=== PATIENT | male | born 1970 | race Caucasian/White ===

== ENCOUNTER 2016-06-30 14:21 | Emergency (ER) | payer OTHER ==
[2016-06-30 14:58] VITALS: RESP 18
[2016-06-30] MEDS ORDERED: SODIUM CHLORIDE 0.9% 500 ML IV STA (15:12)
[2016-06-30 15:30] LABS: Basophils # (A) 0.1 k/uL (0-0.2); Basophils % (A) 2 %; CH 32.6; CHCM 34.2; Eosinophils % (A) 0 %; HCT 43.8 % (39.0-53.0); HDW 2.78; HGB 14.5 gm/dL (13.0-17.5); Luc # (Auto) 0.09; Luc % (Auto) 1; Lymphocytes # (A) 1.3 k/uL (1.0-4.8); Lymphocytes % (A) 20 %; MCH 31.8 pg (25.0-35.0); MCHC 33.1 g/dL (31.0-37.0); Mean Platelet Volume 7.3; Monocytes # (A) 0.3 k/uL (0-1.0); Monocytes % (A) 5 %; Neutrophils # (A) 4.6 k/uL (1.3-7.7); Neutrophils % (A) 72 %; RBC 4.57 m/uL (4.30-5.90); RDW 15.7 % (11.5-15.5); WBC 6.5 k/uL (3.8-10.6); WBC (Perox) 6.54
--- NOTE | 2016-06-30 15:35 | XR ---
EXAMINATION TYPE: XR ankle complete LT DATE OF EXAM: 06/30/2016 3:29 PM COMPARISON: NONE HISTORY: 46-year-old male left ankle pain after trauma TECHNIQUE: 3 views FINDINGS: Ankle mortise appears congruent with preservation of the distal tibiofibular overlap. Talar dome is i ntact. There is mild anterior soft tissue swelling and suggestion of some capsular swelling at the do rsal talonavicular joint. Subtalar joint is aligned. No delineation to the Achilles tendon. No acute fracture or dislocation. IMPRESSION: Some anterior soft tissue swelling is suggested. No acute osseous abnormality seen.
[2016-06-30 15:41] LABS: ALT 59 U/L (21-72); AST 61 U/L (17-59); Alkaline Phosphatase 94 U/L (38-126); Anion Gap 21 mmol/L; Blood Urea Nitrogen 14 mg/dL (9-20); Calcium 9.6 mg/dL (8.4-10.2); Carbon Dioxide 17 mmol/L (22-30); Chloride 106 mmol/L (98-107); Glucose 100 mg/dL (74-99); Non-African American GFR(MDRD) >60 (>60 ml/min/1.73 sqM); Potassium 4.5 mmol/L (3.5-5.1); Sodium 144 mmol/L (137-145); Total Bilirubin 0.8 mg/dL (0.2-1.3); Total Protein 7.8 g/dL (6.3-8.2)
--- NOTE | 2016-06-30 16:41 | ED ---
Syncope HPI - General Chief Complaint: Syncope Stated Complaint: syncope Time Seen by Provider: 06/30/16 14:23 Source: patient Mode of arrival: EMS Limitations: no limitations - History of Present Illness Initial Comments: This patient's 46-year-old man with history of previous syncopal episodes who presents after he had a syncopal episode and fell today. The patient states that he is back at his baseline. He is not having any headache or neurologic symptoms reviewed he does state that he may have injured his ankle. He denied fever or chills, chest pain, dyspnea. MD Complaint: loss of consciousness -: hour(s) Prodromal Symptoms: none -: second(s) Injuries Sustained Associated with Event: Other (Ankle) Current Symptoms: back to baseline - Related Data Home Medications Medication Instructions Recorded Confirmed Cholecalciferol [Vitamin D3] 2,000 unit PO DAILY 10/16/14 06/30/16 FLUoxetine HCL [PROzac] 30 mg PO DAILY 04/03/16 06/30/16 Levothyroxine Sodium [Synthroid] 50 mcg PO DAILY 04/03/16 06/30/16 Lisinopril [Zestril] 2.5 mg PO DAILY 06/30/16 06/30/16 Allergies Allergy/AdvReac Type Severity Reaction Status Date / Time amoxicillin Allergy Rash/Hives Verified 06/30/16 14:44 Sulfa (Sulfonamide Allergy Rash/Hives Verified 06/30/16 14:44 Antibiotics) Review of Systems ROS Statement: Those systems with pertinent positive or pertinent negative responses have been documented in the HPI. ROS Other: All systems not noted in ROS Statement are negative. Constitutional: Denies: fever, chills, weakness Eyes: Denies: vision change Respiratory: Denies: cough, dyspnea Cardiovascular: Reports: syncope. Denies: chest pain, palpitations, edema Gastrointestinal: Denies: abdominal pain, vomiting, diarrhea Genitourinary: Denies: dysuria, hematuria Musculoskeletal: Reports: as per HPI, arthralgia Skin: Denies: rash Neurological: Denies: headache, weakness, numbness, paresthesias, confusion Past Medical History Past Medical History: CVA/TIA Additional Past Medical History / Comment(s): STATES CVA ON X-RAY- NO DEFICETS, STATES HE FELL AT WORK 2-3 WEEKS, HIT HIS HEAD & HAD STITCHES ABOVE LEFT EY ., OCCASIONAL DIZZINESS., SEE DR DASH'S H&P. History of Any Multi-Drug Resistant Organisms: None Reported Past Surgical History: No Surgical Hx Reported, Cardiac Ablation Additional Past Surgical History / Comment(s): HEART ABLATION FOR TACCYCARDIA Additional Past Anesthesia/Blood Transfusion Reaction / Comment(s): NEVER HAS HAD GENERAL ANESTHESIA Past Psychological History: ADD/ADHD, Anxiety, Depression Smoking Status: Never smoker Past Alcohol Use History: Occasional Past Drug Use History: None Reported - Past Family History Father Additional Family Medical History / Comment(s): BREATHING PROBLEMS General Exam Limitations: no limitations General appearance: alert, in no apparent distress Head exam: Present: atraumatic, normocephalic, normal inspection Eye exam: Present: normal appearance, PERRL, EOMI. Absent: scleral icterus, conjunctival injection, nystagmus ENT exam: Present: normal oropharynx Neck exam: Present: normal inspection, full ROM. Absent: tenderness Respiratory exam: Present: normal lung sounds bilaterally. Absent: respiratory distress, wheezes, rales, rhonchi Cardiovascular Exam: Present: regular rate, normal rhythm, normal heart sounds. Absent: systolic murmur, diastolic murmur, rubs, gallop GI/Abdominal exam: Present: soft. Absent: distended, tenderness, guarding, rebound Extremities exam: Present: normal capillary refill. Absent: pedal edema, calf tenderness Back exam: Present: normal inspection. Absent: CVA tenderness (R), CVA tenderness (L) Neurological exam: Present: alert, oriented X3, CN II-XII intact. Absent: motor sensory deficit Skin exam: Present: warm, dry, intact, normal color. Absent: rash Course Vital Signs 06/30/16 06/30/16 06/30/16 14:38 15:37 16:49 Temperature 97.1 F L 98.0 F Pulse Rate 119 H 96 94 Respiratory 18 18 18 Rate Blood Pressure 148/80 149/75 145/93 O2 Sat by Pulse 98 98 96 Oximetry Medical Decision Making - Lab Data Result diagrams: 06/30/16 14:58 06/30/16 14:58 Lab Results 06/30/16 06/30/16 06/30/16 Range/Units 14:58 14:58 14:58 WBC 6.5 (3.8-10.6) k/uL RBC 4.57 (4.30-5.90) m/uL Hgb 14.5 (13.0-17.5) gm/dL Hct 43.8 (39.0-53.0) % MCV 96.0 (80.0-100.0) fL MCH 31.8 (25.0-35.0) pg MCHC 33.1 (31.0-37.0) g/dL RDW 15.7 H (11.5-15.5) % Plt Count 212 (150-450) k/uL Neutrophils % 72 % Lymphocytes % 20 % Monocytes % 5 % Eosinophils % 0 % Basophils % 2 % Neutrophils # 4.6 (1.3-7.7) k/uL Lymphocytes # 1.3 (1.0-4.8) k/uL Monocytes # 0.3 (0-1.0) k/uL Eosinophils # 0.0 (0-0.7) k/uL Basophils # 0.1 (0-0.2) k/uL Sodium 144 (137-145) mmol/L Potassium 4.5 (3.5-5.1) mmol/L Chloride 106 (98-107) mmol/L Carbon Dioxide 17 L (22-30) mmol/L Anion Gap 21 mmol/L BUN 14 (9-20) mg/dL Creatinine 1.10 (0.66-1.25) mg/dL Est GFR (MDRD) Af Amer >60 (>60 ml/min/1.73 sqM) Est GFR (MDRD) Non-Af >60 (>60 ml/min/1.73 sqM) Glucose 100 H (74-99) mg/dL Calcium 9.6 (8.4-10.2) mg/dL Total Bilirubin 0.8 (0.2-1.3) mg/dL AST 61 H (17-59) U/L ALT 59 (21-72) U/L Alkaline Phosphatase 94 (38-126) U/L Troponin I <0.012 (0.000-0.034) ng/mL Total Protein 7.8 (6.3-8.2) g/dL Albumin 5.0 (3.5-5.0) g/dL Disposition Clinical Impression: Syncope Disposition: HOME SELF-CARE Condition: Good Instructions: Syncope (ED) Referrals: None,Stated [Primary Care Provider] - 1-2 days
[2016-06-30 16:49] VITALS: BP 145/93; PULSE 94; TEMP 98
== END 2016-06-30 16:49 | disposition home or self-care (01) ==
LOC: EC 14:21
DX: R55 Syncope and collapse (principal); M25.572 Pain in left ankle and joints of left foot; F32.9 Major depressive disorder, single episode, unspecified; Z79.899 Other long term (current) drug therapy; Z88.2 Allergy status to sulfonamides; Z88.0 Allergy status to penicillin; Z86.73 Personal history of transient ischemic attack (TIA), and cerebral infarction without residual deficits
CPT/HCPCS: 36415; 80053; 84484; 85025; 93005; 99284

== ENCOUNTER → 2016-08-07 | Outpatient (CLI) | payer OTHER ==
--- NOTE | 2016-08-07 07:56 | MR ---
EXAMINATION TYPE: MR brain wo/w con DATE OF EXAM: 08/07/2016 7:42 AM COMPARISON: Previous study dated 08/17/2014. HISTORY: syncope TECHNIQUE: Multiplanar, multiecho imaging of the brain was obtained with and without intravenous adm inistration of 10 mL intravenous MultiHance. FINDINGS: Midline structures are unremarkable. The cerebellar tonsils extend 7 mm below the foramen m agnum. There is no peaking of the tectum. Echoplanar diffusion imaging is normal. There are normal vascular flow voids. The orbits are unremarkable. There is no evidence of a CP angle mass lesion. There is mucoperiosteal thickening involving the right maxillary sinus. This is chronic. There is abnormal signal in the anterior limb and genu of the internal capsule on the right. This ricardo ears unchanged from previous. A second 7.5 mm lesion is noted in the right cerebellum. This is also u nchanged from previous. No other acute focal lesion is seen. There is no mass effect or midline shift identified. I do not see evidence of intracranial blood. Following intravenous administration of gadolinium, I do not see evidence of abnormal enhancement. IMPRESSION: 1. NO ACUTE INTRACRANIAL ABNORMALITY. 2. CHIARI I MALFORMATION. 3. EVIDENCE OF A PREVIOUS INSULT IN THE ANTERIOR LIMB OF THE RIGHT INTERNAL CAPSULE WELL THE RI GHT CEREBELLUM. THIS MAY BE DUE TO AN OLD ISCHEMIC EVENT. OTHER FORMS OF DEMYELINATION ARE ALSO POSSI BLE.
== END | disposition home or self-care (01) ==
LOC: RADMRIMAIN 06:45
PROVIDERS: ATTEND Nurse Practitioner
DX: G93.5 Compression of brain (principal)
CPT/HCPCS: 70553; A9577

== ENCOUNTER 2016-09-14 08:37 | Emergency (ER) | payer OTHER ==
[2016-09-14 08:48] VITALS: RESP 20
[2016-09-14 09:01] VITALS: BP 161/85; PULSE 60; TEMP 97.9
--- NOTE | 2016-09-14 09:24 | ED ---
General Adult HPI - General Chief complaint: Extremity Injury, Lower Stated complaint: foot swollen Time Seen by Provider: 09/14/16 09:09 Source: patient, RN notes reviewed Mode of arrival: ambulatory Limitations: no limitations - History of Present Illness Initial comments: Patient for 6-year-old male who presents emergency room today with a chief complaint of increased pains and swelling to the left foot that he noticed this morning waking up. He does admit some redness over the anterior aspect. Patient states it is locally tender painful. Denies any injury or trauma. Denies any other complaints or symptoms. Patient denies any recent fever, chills , shortness of breath, chest pain, back pain, abdominal pain, nausea or vomiting , numbness or tingling, dysuria or hematuria, constipation or diarrhea, headaches or visual changes, or any other complaints. - Related Data Home Medications Medication Instructions Recorded Confirmed Cholecalciferol [Vitamin D3] 2,000 unit PO DAILY 10/16/14 06/30/16 FLUoxetine HCL [PROzac] 30 mg PO DAILY 04/03/16 06/30/16 Levothyroxine Sodium [Synthroid] 50 mcg PO DAILY 04/03/16 06/30/16 Lisinopril [Zestril] 2.5 mg PO DAILY 06/30/16 06/30/16 Previous Rx's Medication Instructions Recorded Cephalexin [Keflex] 500 mg PO Q12HR 10 Days 09/14/16 Ibuprofen [Motrin] 600 mg PO Q6HR PRN #40 day 09/14/16 Allergies Allergy/AdvReac Type Severity Reaction Status Date / Time amoxicillin Allergy Rash/Hives Verified 06/30/16 14:44 Sulfa (Sulfonamide Allergy Rash/Hives Verified 06/30/16 14:44 Antibiotics) Review of Systems ROS Statement: Those systems with pertinent positive or pertinent negative responses have been documented in the HPI. ROS Other: All systems not noted in ROS Statement are negative. Past Medical History Past Medical History: CVA/TIA Additional Past Medical History / Comment(s): STATES CVA ON X-RAY- NO DEFICETS, STATES HE FELL AT WORK 2-3 WEEKS, HIT HIS HEAD & HAD STITCHES ABOVE LEFT EY ., OCCASIONAL DIZZINESS., SEE DR DASH'S H&P. History of Any Multi-Drug Resistant Organisms: None Reported Past Surgical History: No Surgical Hx Reported, Cardiac Ablation Additional Past Surgical History / Comment(s): HEART ABLATION FOR TACCYCARDIA Additional Past Anesthesia/Blood Transfusion Reaction / Comment(s): NEVER HAS HAD GENERAL ANESTHESIA Past Psychological History: ADD/ADHD, Anxiety, Depression Smoking Status: Never smoker Past Alcohol Use History: Occasional Past Drug Use History: None Reported - Past Family History Father Additional Family Medical History / Comment(s): BREATHING PROBLEMS General Exam - General Exam Comments Initial Comments: General: The patient is awake and alert, in no distress, and does not appear acutely ill. Neck: The neck is supple, there is no tenderness or JVD. Cardiovascular: There is a regular rate and rhythm. No murmur, rub or gallop is appreciated. Respiratory: Lungs are clear to auscultation, respirations are non-labored, breath sounds are equal. No wheezes, stridor, rales, or rhonchi. Musculoskeletal: She does have some mild redness over the anterior aspect of the left foot was streaking. Shows full range motion. Sensation intact. Pulses equal bilaterally 2+. Strength is 5/5 in all areas. Neurological: A&O x 3. CN II-XII intact, There are no obvious motor or sensory deficits. Coordination appears grossly intact. Speech is normal. Skin: Patient does have signs consistent with cellulitis with redness over the anterior aspect between the second to fourth metatarsals with mild streaking skilled nursing up midfoot. Local tenderness. Area is locally warm. Psychiatric: Normal mood and affect. Limitations: no limitations Course Vital Signs 09/14/16 08:46 Temperature 97.9 F Pulse Rate 60 Respiratory 20 Rate Blood Pressure 161/85 O2 Sat by Pulse 98 Oximetry Medical Decision Making - Medical Decision Making Patient's findings are consistent with cellulitis here in the emergency room and will be started on antibiotics of Keflex. He is advised close follow-up. Advised return here to emergency room if any symptoms increase or worsen or for any other concerns. Disposition Clinical Impression: Cellulitis Disposition: HOME SELF-CARE Condition: Good Instructions: Cellulitis (ED) Additional Instructions: Please use medication as discussed. Please follow-up with family doctor in the next 2 days of symptoms have not improved. Please return to emergency room if the symptoms increase or worsen or for any other concerns. Prescriptions: Cephalexin [Keflex] 500 mg PO Q12HR 10 Days Ibuprofen [Motrin] 600 mg PO Q6HR PRN #40 day PRN Reason: Pain Time of Disposition: 09:24
== END 2016-09-14 09:33 | disposition home or self-care (01) ==
LOC: EC 08:37
DX: L03.116 Cellulitis of left lower limb (principal); F32.9 Major depressive disorder, single episode, unspecified; Z88.0 Allergy status to penicillin; Z88.2 Allergy status to sulfonamides; Z79.899 Other long term (current) drug therapy
CPT/HCPCS: 99283

== ENCOUNTER 2016-10-24 13:17 | Emergency (ER) | payer OTHER ==
[2016-10-24] MEDS ORDERED: ASPIRIN 81 MG CHEW PO STA (13:41)
[2016-10-24] MEDS ORDERED: NITROGLYCERIN OINT 1 INCH/GM PACKET TOPICAL STA (13:41)
--- NOTE | 2016-10-24 13:43 | ED ---
General Adult HPI - General Chief complaint: Chest Pain Stated complaint: chest heaviness Time Seen by Provider: 10/24/16 13:34 Source: patient, RN notes reviewed Mode of arrival: ambulatory Limitations: no limitations - History of Present Illness Initial comments: Patient is a pleasant 46-year-old male presenting to the emergency department complaining of chest heaviness. Onset of symptoms was around a week ago. Symptoms are worse today. Patient has heaviness in his chest. Discomfort was more left-sided however now is more right-sided. Patient does have some exertional dyspnea. Patient has been fatigued. No nausea or vomiting. No diaphoresis. - Related Data Home Medications Medication Instructions Recorded Confirmed Levothyroxine Sodium [Synthroid] 50 mcg PO DAILY 04/03/16 10/24/16 FLUoxetine HCL [PROzac] 10 mg PO DAILY 09/14/16 10/24/16 FLUoxetine HCL [PROzac] 20 mg PO DAILY 09/14/16 10/24/16 Metoprolol Succinate (ER) [Toprol 25 mg PO DAILY 09/14/16 10/24/16 Xl] clonazePAM [KlonoPIN] 0.5 mg PO QID PRN 09/14/16 10/24/16 Allergies Allergy/AdvReac Type Severity Reaction Status Date / Time amoxicillin Allergy Rash/Hives Verified 10/24/16 14:16 Sulfa (Sulfonamide Allergy Rash/Hives Verified 10/24/16 14:16 Antibiotics) Review of Systems ROS Statement: Those systems with pertinent positive or pertinent negative responses have been documented in the HPI. ROS Other: All systems not noted in ROS Statement are negative. Constitutional: Denies: fever Eyes: Denies: eye pain ENT: Denies: ear pain Respiratory: Reports: dyspnea. Denies: cough Cardiovascular: Reports: chest pain Endocrine: Reports: fatigue Gastrointestinal: Denies: abdominal pain Genitourinary: Denies: dysuria Musculoskeletal: Denies: back pain Skin: Denies: rash Neurological: Denies: weakness Past Medical History Past Medical History: CVA/TIA, Seizure Disorder Additional Past Medical History / Comment(s): STATES CVA ON X-RAY- NO DEFICETS, tachycardia History of Any Multi-Drug Resistant Organisms: None Reported Past Surgical History: No Surgical Hx Reported, Cardiac Ablation Additional Past Surgical History / Comment(s): HEART ABLATION FOR TACCYCARDIA Additional Past Anesthesia/Blood Transfusion Reaction / Comment(s): NEVER HAS HAD GENERAL ANESTHESIA Past Psychological History: ADD/ADHD, Anxiety, Depression Smoking Status: Never smoker Past Alcohol Use History: Occasional Past Drug Use History: None Reported - Past Family History Father Additional Family Medical History / Comment(s): BREATHING PROBLEMS General Exam Limitations: no limitations General appearance: alert, in no apparent distress Head exam: Present: atraumatic Eye exam: Present: normal appearance, PERRL ENT exam: Present: normal oropharynx Neck exam: Present: normal inspection Respiratory exam: Present: normal lung sounds bilaterally Cardiovascular Exam: Present: regular rate, normal rhythm Expanded Peripheral pulses: 2+: Radial (R), Radial (L), Dorsalis Pedis (R), Dorsalis Pedis (L) GI/Abdominal exam: Present: soft. Absent: tenderness Extremities exam: Present: normal inspection. Absent: pedal edema, calf tenderness Neurological exam: Present: alert Psychiatric exam: Present: normal affect, normal mood Skin exam: Absent: rash Course Vital Signs 10/24/16 13:21 Temperature 98.0 F Pulse Rate 59 L Respiratory 18 Rate Blood Pressure 157/72 O2 Sat by Pulse 99 Oximetry EKG Findings - EKG Comments: EKG Findings:: Normal sinus rhythm 62. MO 136. QRS 98. QT 432. QTC 4:30. Right axis. Left posterior fascicular block. Nonspecific ST-T. Medical Decision Making - Medical Decision Making Patient reevaluated and resting comfortably in bed. Patient symptom-free at this time. Patient updated on results. Patient recommended admission. Patient is explained limitations of ER testing. Patient is made aware that heart attack has not been ruled out as well as risk for heart attack in the near future as well as other causes of chest discomfort. Patient does demonstrate medical decision aching and does not want to stay in the hospital. Patient will leave AGAINST MEDICAL ADVICE. - Lab Data Result diagrams: 10/24/16 13:50 10/24/16 13:50 Lab Results 10/24/16 10/24/16 10/24/16 Range/Units 13:50 13:50 13:50 WBC 4.2 (3.8-10.6) k/uL RBC 4.83 (4.30-5.90) m/uL Hgb 16.0 (13.0-17.5) gm/dL Hct 46.7 (39.0-53.0) % MCV 96.6 (80.0-100.0) fL MCH 33.1 (25.0-35.0) pg MCHC 34.3 (31.0-37.0) g/dL RDW 15.0 (11.5-15.5) % Plt Count 183 (150-450) k/uL Neutrophils % (Manual) 37.0 % Band Neutrophils % 2.0 % Lymphocytes % (Manual) 50.0 % Monocytes % (Manual) 8.0 % Eosinophils % (Manual) 3.0 % Neutrophils # (Manual) 1.6 (1.3-7.7) k/uL Lymphocytes # (Manual) 2.1 (1.0-4.8) k/uL Monocytes # (Manual) 0.3 (0-1.0) k/uL Eosinophils # (Manual) 0.1 (0-0.7) k/uL Nucleated RBCs 0 (0-0) /100 WBC RBC Morphology Normal PT (9.0-12.0) sec INR (<1.1) APTT (22.0-30.0) sec D-Dimer (<0.60) mg/L FEU Sodium 145 (137-145) mmol/L Potassium 4.3 (3.5-5.1) mmol/L Chloride 107 (98-107) mmol/L Carbon Dioxide 24 (22-30) mmol/L Anion Gap 14 mmol/L BUN 14 (9-20) mg/dL Creatinine 0.97 (0.66-1.25) mg/dL Est GFR (MDRD) Af Amer >60 (>60 ml/min/1.73 sqM) Est GFR (MDRD) Non-Af >60 (>60 ml/min/1.73 sqM) Glucose 85 (74-99) mg/dL Calcium 9.4 (8.4-10.2) mg/dL Magnesium 1.9 (1.6-2.3) mg/dL Total Bilirubin 1.0 (0.2-1.3) mg/dL AST 95 H (17-59) U/L ALT 70 (21-72) U/L Alkaline Phosphatase 109 (38-126) U/L Total Creatine Kinase 161 (55-170) U/L CK-MB (CK-2) 2.0 (0.0-2.4) ng/mL CK-MB (CK-2) Rel Index 1.2 Troponin I <0.012 (0.000-0.034) ng/mL Total Protein 8.5 H (6.3-8.2) g/dL Albumin 4.8 (3.5-5.0) g/dL 10/24/16 Range/Units 13:50 WBC (3.8-10.6) k/uL RBC (4.30-5.90) m/uL Hgb (13.0-17.5) gm/dL Hct (39.0-53.0) % MCV (80.0-100.0) fL MCH (25.0-35.0) pg MCHC (31.0-37.0) g/dL RDW (11.5-15.5) % Plt Count (150-450) k/uL Neutrophils % (Manual) % Band Neutrophils % % Lymphocytes % (Manual) % Monocytes % (Manual) % Eosinophils % (Manual) % Neutrophils # (Manual) (1.3-7.7) k/uL Lymphocytes # (Manual) (1.0-4.8) k/uL Monocytes # (Manual) (0-1.0) k/uL Eosinophils # (Manual) (0-0.7) k/uL Nucleated RBCs (0-0) /100 WBC RBC Morphology PT 10.0 (9.0-12.0) sec INR 1.0 (<1.1) APTT 25.0 (22.0-30.0) sec D-Dimer 0.32 (<0.60) mg/L FEU Sodium (137-145) mmol/L Potassium (3.5-5.1) mmol/L Chloride (98-107) mmol/L Carbon Dioxide (22-30) mmol/L Anion Gap mmol/L BUN (9-20) mg/dL Creatinine (0.66-1.25) mg/dL Est GFR (MDRD) Af Amer (>60 ml/min/1.73 sqM) Est GFR (MDRD) Non-Af (>60 ml/min/1.73 sqM) Glucose (74-99) mg/dL Calcium (8.4-10.2) mg/dL Magnesium (1.6-2.3) mg/dL Total Bilirubin (0.2-1.3) mg/dL AST (17-59) U/L ALT (21-72) U/L Alkaline Phosphatase (38-126) U/L Total Creatine Kinase (55-170) U/L CK-MB (CK-2) (0.0-2.4) ng/mL CK-MB (CK-2) Rel Index Troponin I (0.000-0.034) ng/mL Total Protein (6.3-8.2) g/dL Albumin (3.5-5.0) g/dL - Radiology Data Radiology results: image reviewed (Chest x-ray shows no acute process) Disposition Clinical Impression: Chest pain Disposition: Left Against Medical Advice Instructions: Chest Pain (ED) Additional Instructions: Please follow-up with your doctor in the next day for recheck. Return for increased pain, weakness, difficulty breathing, worsening or change in symptoms or other concerns. Aspirin daily. You're leaving AGAINST MEDICAL ADVICE. Referrals: Aries Ma MD [Primary Care Provider] - 1-2 days
[2016-10-24 14:14] LABS: ALT 70 U/L (21-72); AST 95 U/L (17-59); Alkaline Phosphatase 109 U/L (38-126); Anion Gap 14 mmol/L; Aty Lym Flag Slight; Blood Urea Nitrogen 14 mg/dL (9-20); CH 33.5; CHCM 34.9; Calcium 9.4 mg/dL (8.4-10.2); Carbon Dioxide 24 mmol/L (22-30); Chloride 107 mmol/L (98-107); Glucose 85 mg/dL (74-99); HCT 46.7 % (39.0-53.0); HDW 2.77; MCH 33.1 pg (25.0-35.0); MCHC 34.3 g/dL (31.0-37.0); MCV 96.6 fL (80.0-100.0); Magnesium 1.9 mg/dL (1.6-2.3); Non-African American GFR(MDRD) >60 (>60 ml/min/1.73 sqM); Potassium 4.3 mmol/L (3.5-5.1); RBC 4.83 m/uL (4.30-5.90); Sodium 145 mmol/L (137-145); Total Protein 8.5 g/dL (6.3-8.2); WBC 4.2 k/uL (3.8-10.6); WBC (Perox) 3.95
--- NOTE | 2016-10-24 14:27 | XR ---
EXAMINATION TYPE: XR chest 2V DATE OF EXAM: 10/24/2016 2:19 PM COMPARISON: NONE HISTORY: Chest pain TECHNIQUE: Frontal and lateral views of the chest are obtained. FINDINGS: There is no focal air space opacity. No evidence for pnuemothorax.No pleural effusion. The cardiac silhouette size is within normal limits. The osseous structures are grossly intact. IMPRESSION: 1. No acute cardiopulmonary process.
[2016-10-24 14:31] LABS: Add Differential Manual Differential
[2016-10-24 14:33] LABS: Creatine Kinase 161 U/L (55-170); Nucleated Red Blood Cells 0 /100 WBC (0-0); RBC Morphology Normal; Total Cells Counted 100
[2016-10-24 14:46] LABS: Troponin I <0.012 ng/mL (0.000-0.034)
[2016-10-24 15:48] VITALS: BP 122/88; PULSE 75; RESP 20; TEMP 97
== END 2016-10-24 16:08 | disposition left against medical advice (07) ==
LOC: EC 13:17
DX: R07.89 Other chest pain (principal); R06.00 Dyspnea, unspecified; R53.83 Other fatigue; G40.909 Epilepsy, unspecified, not intractable, without status epilepticus; F32.9 Major depressive disorder, single episode, unspecified; F41.9 Anxiety disorder, unspecified; Z79.899 Other long term (current) drug therapy; Z88.0 Allergy status to penicillin; Z88.2 Allergy status to sulfonamides
CPT/HCPCS: 36415; 71020; 80053; 82550; 82553; 83735; 84484; 85025; 85379; 85610; 85730; 93005; 99285

== ENCOUNTER → 2017-01-10 | Outpatient (CLI) | payer OTHER ==
--- NOTE | 2017-01-10 10:12 | NM ---
EXAMINATION TYPE: NM stress cardiolite complete DATE OF EXAM: 01/10/2017 COMPARISON: NONE HISTORY: Precordial chest pain and abnormal EKG TECHNIQUE: After the intravenous administration of 10.1 mCi Tc 99m Sestamibi - Rest images obtained 45 minutes post injection. The patient exercised using a DAVID protocol and 1 minute prior to peak exercise was injected with 27.1 mCi Tc 99m Sestamibi - Stress images obtained 10 minutes post injecti on. FINDINGS: Targeted heart rate was achieved during performance of the study. Review of stress and rest SPECT yasmine ges demonstrates decreased perfusion on stress imaging involving the inferior lateral wall compatible with stress-induced ischemia. No fixed defects are identified. Gated analysis shows normal wall omer on with an estimated left ventricular ejection fraction of 59 %. IMPRESSION: Findings compatible with stress-induced ischemia involving the inferolateral wall.
--- NOTE | 2017-01-10 15:09 | EST ---
DATE OF SERVICE: 01/10/17 TYPE OF REPORT: Exercise Stress Test INDICATION: Chest pain, syncope. BASELINE HEART RATE: 61 BASELINE BLOOD PRESSURE: 140/92 MAXIMUM HEART RATE: 170 MAXIMUM BLOOD PRESSURE: 192/94 85% MPHR: 148 100% MPHR: 174 METS: 12.1 MAXIMUM STAGE REACHED: III TOTAL EXERCISE TIME: 11:46 The patient was exercised for a total period of 11 minutes. Peak heart rate of 170 was achieved, maximum blood pressure of 145/78 mm of mercury was noted. Resting EKG shows normal sinus rhythm with normal [place] interval and QRS duration and normal ST T waves. No ST segment depression suggestive of ischemia was noted. No dysrhythmias are noted. FINAL IMPRESSION: 1. This exercise test is not suggestive of ischemia. 2. The patient's exercise tolerance is excellent. 3. The results of the nuclear study will follow. ZAINAB
== END | disposition home or self-care (01) ==
LOC: RADNMMAIN 07:59
PROVIDERS: ATTEND Internal Medicine
DX: I20.9 Angina pectoris, unspecified (principal)
CPT/HCPCS: 93017; 78452; A9500

== ENCOUNTER → 2017-02-20 | Outpatient (CLI) | payer OTHER ==
[2017-02-20 09:30] LABS: CH 33.4; HCT 41.8 % (39.0-53.0); HDW 2.67; HGB 13.7 gm/dL (13.0-17.5); MCH 32.5 pg (25.0-35.0); MCHC 32.9 g/dL (31.0-37.0); MCV 98.7 fL (80.0-100.0); Mean Platelet Volume 7.2; RBC 4.23 m/uL (4.30-5.90); RDW 14.9 % (11.5-15.5); WBC 4.1 k/uL (3.8-10.6)
[2017-02-20 09:54] LABS: Anion Gap 9 mmol/L; Blood Urea Nitrogen 9 mg/dL (9-20); Carbon Dioxide 27 mmol/L (22-30); Chloride 107 mmol/L (98-107); Non-African American GFR(MDRD) >60 (>60 ml/min/1.73 sqM); Potassium 4.1 mmol/L (3.5-5.1); Sodium 143 mmol/L (137-145)
== END | disposition home or self-care (01) ==
LOC: LABPAT 08:45
PROVIDERS: ATTEND Internal Medicine Interventional Cardiology
DX: Z01.818 Encounter for other preprocedural examination (principal); R94.30 Abnormal result of cardiovascular function study, unspecified
CPT/HCPCS: 80051; 82565; 84520; 85027

== ENCOUNTER → 2017-02-26 | Day surgery (SDC) | payer OTHER ==
[2017-02-22 09:36] VITALS: BMI 21.8
[~2017-02-26] MED LIST: ALLOPURINOL 300 MG TAB PO SCH; ALPRAZolam 0.25 MG TAB PO PRN; ALPRAZolam 0.5 MG TAB PO PRN; ASPIRIN 325 MG TAB PO STA; ATORVASTATIN 80 MG TAB PO STA; FLUoxetine HCL 10 MG CAP PO SCH; FLUoxetine HCL 20 MG CAP PO SCH; IOHEXOL 350 MG/ML 125ML BOTTLE INJ ONE; LEVOTHYROXINE 50 MCG TAB PO SCH; LIDOCAINE 2% INJ 20 MG/ML SQ ONE; LISINOPRIL 2.5 MG TAB PO SCH; METOPROLOL SUCCINATE (ER) 25 MG TAB.ER.24H PO SCH; NITROGLYCERIN SL TABS 0.4 MG TAB SUBLINGUAL PRN; NON-FORMULARY DRUG (Aspirin [Adult Low Dose Aspirin Ec] 81 MG) PO SCH; NON-FORMULARY DRUG (Cholecalciferol (Vitamin D3) [Vitamin D3] 2,000 UNIT) PO SCH; RX INFO: IV CONTRAST WAS GIVEN 1 EACH MISC MISCELLANE PRN; SODIUM CHLORIDE 0.9% 1,000 ML IV SCH; SODIUM CHLORIDE 0.9% 1,000 ML in EMPTY BAG 1 BAG IV ONE; clonazePAM 0.5 MG TAB PO PRN; fentaNYL (PF) 50 MCG/ML 2 ML AMP IV ONE
[2017-02-26 06:37] VITALS: RESP 18; TEMP 97.9
--- NOTE | 2017-02-26 09:05 | CC ---
CARDIAC CATHETERIZATION REPORT Mr. South is a 46-year-old male who has been followed by Dr. Fischer, has a history of arrhythmia and prior history of ablation, history of mild cardiomyopathy, who has been complaining of chest discomfort, underwent a myocardial perfusion imaging that was consistent with inferior wall ischemia. In view of that, recommendation was made regarding cardiac catheterization. The procedure as well as risks and complications were discussed with the patient who is in full understanding and agreement. PROCEDURE: Patient was brought to energy systems laboratory director in the fasting semi-sedated state after receiving fentanyl and Benadryl and achieving moderate conscious sedative state. Using Xylocaine anesthesia in Seldinger technique, attempts to cannulate the right radial artery were unsuccessful secondary to spasm. There was inability to advance the wire at that time. Using Xylocaine anesthesia in the Seldinger technique, 6-Spanish sheath was introduced in the right femoral artery. Selective right and left coronary angiography performed using her 6-Spanish 4-bend right and left Wilber catheter. Multiple views of the coronary arteries including hemiaxial views were obtained. Following that, 6-Spanish tight pigtail catheter introduced in the left ventricle and a 30-degree GARVIN view of the left ventricle was obtained. Following that, catheter and sheaths were removed. Hemostasis was obtained with deployment of an Angio-Seal. There was no immediate complication. Patient was returned to his room in stable condition. FINDINGS: LEFT MAIN: This is a large-sized vessel bifurcating in the left circumflex and left anterior descending artery. Left main coronary artery is without any obstructive coronary artery disease. LEFT ANTERIOR DESCENDING ARTERY: This is a large-sized vessel reaching to the apex with a wraparound apex segment giving rise to a large diagonal branch in mid segment. The left circumflex as well as branches have no evidence of obstructive coronary artery disease. LEFT CIRCUMFLEX: This is a nondominant vessel giving rise to 2 obtuse marginal branches. The left and its branches have no evidence of obstructive coronary artery disease. RIGHT CORONARY ARTERY: This is a dominant vessel large in caliber bifurcating distally PDA, posterolateral segment and branches. The right coronary artery and its branches have no evidence of obstructive coronary artery disease. LEFT VENTRICULOGRAM: Left ventriculogram is performed in 30-degree GARVIN view and revealed a mild global hypokinesis. The ejection fraction is estimated at 50%. There was no significant mitral regurgitation. HEMODYNAMICS: There was no gradient across the aortic valve. The ventricular end- diastolic pressure was 14 mmHg. CONCLUSION: 1. Normal coronary arteries. 2. Normal left ventricular size with mild global hypokinesis. RECOMMENDATION: In view of finding anatomy, recommend continue medical therapy the with aggressive coronary risk modifications have been initiated. Those findings and recommendation were discussed with the patient and his family and are in full understanding and agreement. Duration of the procedure is 27 minutes. MMODL / IJN: [id number] /
--- NOTE | 2017-02-26 09:10 | LTR ---
Date: February 26, 2017 Re: Marco Antonio South Dear Dr. Ma: I had the opportunity to perform cardiac catheterization on Mr. South at [facility] on 26 of February and a full copy of the procedure note will be forwarded to you. In brief, he was found to have no evidence of obstructive coronary artery disease with minimally impaired left ventricular systolic function and based on those findings, recommend to continue medical therapy with aggressive coronary risk modification has been initiated. Thank you again for allowing me the opportunity to participate in his care. Please feel free to call me for any questions. Sincerely, MD MAMIE Esteban / SILVINAN: [id number] /
[2017-02-26 11:47] VITALS: PULSE 60
[2017-02-26 13:21] VITALS: BP 119/71
== END | disposition home or self-care (01) ==
LOC: CATHCVL 05:56
PROVIDERS: ATTEND Internal Medicine Interventional Cardiology
DX: R94.39 Abnormal result of other cardiovascular function study (principal); I42.0 Dilated cardiomyopathy; R56.9 Unspecified convulsions; Z88.1 Allergy status to other antibiotic agents; Z88.2 Allergy status to sulfonamides; Z79.899 Other long term (current) drug therapy
CPT/HCPCS: 93458; 99152; 99153; C1760; C1894 ×2; C1769; J2001; J3010; Q9967

== ENCOUNTER → 2017-12-31 | Outpatient (CLI) | payer OTHER ==
--- NOTE | 2017-12-31 13:15 | MR ---
EXAMINATION TYPE: MR brain wo con DATE OF EXAM: 12/31/2017 8:33 AM COMPARISON: NONE HISTORY: Epilepsy, unspecified, not intractable Multiplanar and multispin-echo imaging of the brain was performed . The ventricles, basal cisterns and sulci overlying the cerebral convexities are within normal limits. There is no evidence for midline shift or mass effect. Acute intracranial hemorrhage or extra-axial collection is not evident. The brain parenchyma reveals foci of increased signal within the basal ganglia bilaterally right grea ter than left largest focus of increased signal measuring 5.8 mm. The findings are nonspecific and co uld reflect demyelination, chronic small vessel ischemic change, change from chronic migraine headach es, Lyme's disease among other possibilities. No acute edema is identified. Moderate chronic sinusitis. IMPRESSION: Nonspecific white matter changes differential diagnostic possibilities discussed above.
== END | disposition home or self-care (01) ==
LOC: RADMRIMAIN 07:57
PROVIDERS: ATTEND Psychiatry & Neurology Neurology
DX: R90.82 White matter disease, unspecified (principal); G40.909 Epilepsy, unspecified, not intractable, without status epilepticus; Z88.0 Allergy status to penicillin; Z88.2 Allergy status to sulfonamides
CPT/HCPCS: 70551

== ENCOUNTER → 2018-02-21 | Outpatient (CLI) | payer OTHER ==
--- NOTE | 2018-02-21 14:24 | US ---
EXAMINATION TYPE: US liver DATE OF EXAM: 02/21/2018 COMPARISON: NONE CLINICAL HISTORY: R94.5 ABN LIVER FUNCTIONS. no symptoms EXAM MEASUREMENTS: Liver Length: 16.6 cm Gallbladder Wall: 0.2 cm CBD: 0.4 cm Right Kidney: 9.6 x 4.7 x 4.9 cm Pancreas: Body and tail obscured by bowel gas Liver: heterogeneous and difficult to penetrate . Findings can be compatible with mild to moderate fatty infiltration of the liver. Gallbladder: wnl Evidence for sonographic Chand's sign: no CBD: wnl Right Kidney: wnl IMPRESSION: 1. Hepatomegaly and mild fatty infiltration liver. 2. Limitation due to bowel gas
== END | disposition home or self-care (01) ==
LOC: RADUSWWP 07:54
PROVIDERS: ATTEND Internal Medicine
DX: K76.0 Fatty (change of) liver, not elsewhere classified (principal)
CPT/HCPCS: 76705

== ENCOUNTER 2018-03-20 14:13 | Inpatient (IN) | payer OTHER ==
[2018-03-20] MEDS ORDERED: SODIUM CHLORIDE 0.9% 1,000 ML IV STA ×2 (14:33→17:27)
[2018-03-20] MEDS ORDERED: DIPH,PERTUS(ACELL)TETVAC-LF 0.5 ML VIAL IM ONE (14:35)
--- NOTE | 2018-03-20 14:37 | ED ---
General Adult HPI - General Chief complaint: Seizure Stated complaint: seizure/head & chin lac Time Seen by Provider: 03/20/18 14:26 Source: patient, family, RN notes reviewed Mode of arrival: wheelchair Limitations: no limitations - History of Present Illness Initial comments: Patient 47-year-old male significant past medical history for seizures, presented to the emergency room today with chief complaint of a seizure that occurred earlier today. Patient does admit that he was standing in the kitchen and had a seizure. His mother is at bedside providing history. States he did fall back does have a cut to the back of his head and onto his chin. Patient states that he is not on any seizure medications. He states he does see a neurologist. They've not started on any meds. He states first seizure was several years ago. He states he went quite a while without a seizure but is had now this is the second one just the last 2 or 3 weeks. Patient denies any other complaints or symptoms at this time. Unaware of tetanus status. Patient denies any recent fever, chills, shortness of breath, chest pain, back pain, abdominal pain, nausea or vomiting, numbness or tingling, visual changes, or any other complaints. - Related Data Home Medications Medication Instructions Recorded Confirmed Metoprolol Succinate (ER) [Toprol 25 mg PO QAM 09/14/16 03/20/18 XL] clonazePAM [KlonoPIN] 0.5 mg PO QID PRN 09/14/16 03/20/18 Aspirin [Adult Low Dose Aspirin EC] 81 mg PO DAILY 02/22/17 03/20/18 Lisinopril [Zestril] 2.5 mg PO HS 02/22/17 03/20/18 Allopurinol [Zyloprim] 100 mg PO DAILY 03/20/18 03/20/18 FLUoxetine HCL [PROzac] 40 mg PO DAILY 03/20/18 03/20/18 Levothyroxine Sodium [Synthroid] 50 mcg PO DAILY 03/20/18 03/20/18 Allergies Allergy/AdvReac Type Severity Reaction Status Date / Time amoxicillin Allergy Rash/Hives Verified 03/20/18 16:20 Sulfa (Sulfonamide Allergy Rash/Hives Verified 03/20/18 16:20 Antibiotics) Review of Systems ROS Statement: Those systems with pertinent positive or pertinent negative responses have been documented in the HPI. ROS Other: All systems not noted in ROS Statement are negative. Past Medical History Past Medical History: Chest Pain / Angina, CVA/TIA, Seizure Disorder, Thyroid Disorder Additional Past Medical History / Comment(s): STATES TIA ON X-RAY- NO DEFICITS, HX OF VENTRICULAR tachycardia. STATES HAS HAD 2 SEIZURES, LAST ONE 03/2016. HX GOUT History of Any Multi-Drug Resistant Organisms: None Reported Past Surgical History: Cardiac Ablation Additional Past Surgical History / Comment(s): TILT TABLE Past Anesthesia/Blood Transfusion Reactions: No Reported Reaction Additional Past Anesthesia/Blood Transfusion Reaction / Comment(s): NEVER HAS HAD GENERAL ANESTHESIA Past Psychological History: Anxiety, Depression Smoking Status: Never smoker Past Alcohol Use History: Occasional Past Drug Use History: None Reported - Past Family History Mother Family Medical History: No Reported History Father Additional Family Medical History / Comment(s): BREATHING PROBLEMS General Exam - General Exam Comments Initial Comments: General: The patient is awake and alert, in no distress, and does not appear acutely ill. Eye: Pupils are equal, round and reactive to light. Extra-ocular movements are intact. No nystagmus. There is normal conjunctiva bilaterally. No signs of icterus. Ears, nose, mouth and throat: There are moist mucous membranes and no oral lesions. Neck: The neck is supple, there is no tenderness or JVD. Cardiovascular: There is a regular rate and rhythm. No murmur, rub or gallop is appreciated. Respiratory: Lungs are clear to auscultation, respirations are non-labored, breath sounds are equal. No wheezes, stridor, rales, or rhonchi. Musculoskeletal: Normal ROM, no tenderness. Sensation intact. Neurological: A&O x 3. CN II-XII intact, There are no obvious motor or sensory deficits. Coordination appears grossly intact. Speech is normal. Skin: Does have a laceration to the lower chin. Mild venous oozing to the chin area Psychiatric: Cooperative, appropriate mood & affect, normal judgment. Limitations: no limitations Course Vital Signs 03/20/18 03/20/18 03/20/18 14:21 16:23 18:06 Temperature 98.2 F Pulse Rate 95 113 H 98 Respiratory 18 18 18 Rate Blood Pressure 116/71 179/69 145/73 O2 Sat by Pulse 95 92 L 94 L Oximetry Procedures - Procedures Initial comment: 1.5 cm linear laceration to right side of chin. The skin was anesthetized with 1 % lidocaine. The laceration was then cleansed with and irrigated with normal saline. The wound was inspected, and there was no evidence of injury to deep structures. No foreign body was noted in the wound. A total of 5 skin sutures were placed utilizing 5-0 nylon. Medical Decision Making - Medical Decision Making 47-year-old male presents to the emergency room for a seizure that occurred earlier today. It was unwitnessed but his mother did find him down in the kitchen. Patient doesn't remember being in the kitchen prior to seizure. Patient does have a laceration to his chin. This is close to the emergency room. Patient's tetanus is up-to-date. Patient labs were reviewed. Does show mildly elevated liver enzymes. Patient states he does drink occasionally but has not drank recently. Patient urinalysis shows possible infection will be treated with antibiotic. Patient upon trying to give a urine sample was using a urinal and had a second seizure here in the emergency room. He did fall backwards the back of his head. Does have hematoma in this area. Repeat CT of the head was performed showing Patient's CT of the head shows old lacunar infarcts and right internal capsule and right parietal lobe. Did show a lateral parietal scalp soft tissue swelling. Patient currently alert and oriented at this time. Doing well as been eating and drinking here in emergency room. Patient currently not on any seizure medication for the seizures. Patient will be admitted to the hospital with consult to his neurologist. He'll be continued on Ativan when necessary and seizure precautions. - Lab Data Result diagrams: 03/20/18 14:57 03/20/18 14:57 Lab Results 03/20/18 03/20/18 03/20/18 Range/Units 14:57 14:57 Unknown WBC 6.9 (3.8-10.6) k/uL RBC 4.61 (4.30-5.90) m/uL Hgb 15.3 (13.0-17.5) gm/dL Hct 45.3 (39.0-53.0) % MCV 98.2 (80.0-100.0) fL MCH 33.1 (25.0-35.0) pg MCHC 33.7 (31.0-37.0) g/dL RDW 14.5 (11.5-15.5) % Plt Count 132 L (150-450) k/uL Neutrophils % 81 % Lymphocytes % 12 % Monocytes % 4 % Eosinophils % 2 % Basophils % 0 % Neutrophils # 5.6 (1.3-7.7) k/uL Lymphocytes # 0.8 L (1.0-4.8) k/uL Monocytes # 0.3 (0-1.0) k/uL Eosinophils # 0.1 (0-0.7) k/uL Basophils # 0.0 (0-0.2) k/uL Sodium 136 L (137-145) mmol/L Potassium 4.7 (3.5-5.1) mmol/L Chloride 99 (98-107) mmol/L Carbon Dioxide 18 L (22-30) mmol/L Anion Gap 19 mmol/L BUN 18 (9-20) mg/dL Creatinine 0.89 (0.66-1.25) mg/dL Est GFR (CKD-EPI)AfAm >90 (>60 ml/min/1.73 sqM) Est GFR (CKD-EPI)NonAf >90 (>60 ml/min/1.73 sqM) Glucose 115 H (74-99) mg/dL Calcium 9.6 (8.4-10.2) mg/dL Total Bilirubin 1.3 (0.2-1.3) mg/dL AST 268 H (17-59) U/L ALT 188 H (21-72) U/L Alkaline Phosphatase 130 H (38-126) U/L Total Protein 7.8 (6.3-8.2) g/dL Albumin 4.7 (3.5-5.0) g/dL Urine Color Yellow Urine Appearance Clear (Clear) Urine pH 6.0 (5.0-8.0) Ur Specific [place] 1.022 (1.001-1.035) Urine Protein 2+ H (Negative) Urine Glucose (UA) Negative (Negative) Urine Ketones 3+ H (Negative) Urine Blood Trace H (Negative) Urine Nitrite Negative (Negative) Urine Bilirubin Negative (Negative) Urine Urobilinogen <2.0 (<2.0) mg/dL Ur Leukocyte Esterase Negative (Negative) Urine RBC 18 H (0-5) /hpf Urine WBC 11 H (0-5) /hpf Hyaline Casts 15 H (0-2) /lpf Urine Mucus Occasional H (None) /hpf Urine Sperm Occasional H (None) /hpf Disposition Clinical Impression: Generalized seizure, Facial laceration, Scalp hematoma Disposition: ADMITTED IP TO THIS HOSP Condition: Good Is patient prescribed a controlled substance at d/c from ED?: No Referrals: Aries Ma MD [Primary Care Provider] - 1-2 days Time of Disposition: 19:27
[2018-03-20] MEDS ORDERED: LIDOCAINE 1% INJ 10MG/ML (20 ML MDV) SQ STA (14:45)
[2018-03-20] MEDS ORDERED: ONDANSETRON 4 MG/2 ML VIAL IVP STA (15:04)
[2018-03-20 15:07] LABS: Basophils % (A) 0 %; Eosinophils # (A) 0.1 k/uL (0-0.7); Eosinophils % (A) 2 %; HCT 45.3 % (39.0-53.0); HGB 15.3 gm/dL (13.0-17.5); Lymphocytes # (A) 0.8 k/uL (1.0-4.8); Lymphocytes % (A) 12 %; MCH 33.1 pg (25.0-35.0); MCHC 33.7 g/dL (31.0-37.0); MCV 98.2 fL (80.0-100.0); Mean Platelet Volume 7.3; Monocytes # (A) 0.3 k/uL (0-1.0); Monocytes % (A) 4 %; Neutrophils # (A) 5.6 k/uL (1.3-7.7); Neutrophils % (A) 81 %; Platelet Count 132 k/uL (150-450); RBC 4.61 m/uL (4.30-5.90); RDW 14.5 % (11.5-15.5); WBC 6.9 k/uL (3.8-10.6)
[2018-03-20 15:28] LABS: ALT 188 U/L (21-72); AST 268 U/L (17-59); Albumin 4.7 g/dL (3.5-5.0); Alkaline Phosphatase 130 U/L (38-126); Anion Gap 19 mmol/L; Blood Urea Nitrogen 18 mg/dL (9-20); Calcium 9.6 mg/dL (8.4-10.2); Carbon Dioxide 18 mmol/L (22-30); Chloride 99 mmol/L (98-107); Glucose 115 mg/dL (74-99); Potassium 4.7 mmol/L (3.5-5.1); Sodium 136 mmol/L (137-145); Total Bilirubin 1.3 mg/dL (0.2-1.3); Total Protein 7.8 g/dL (6.3-8.2)
--- NOTE | 2018-03-20 15:53 | CT ---
EXAMINATION TYPE: CT brain wo con DATE OF EXAM: 03/20/2018 COMPARISON: MRI brain 12/31/2017 INDICATION: Seizure. DLP: 1121 mGycm, Automated exposure control for dose reduction was used. CONTRAST: None CT of the brain is performed utilizing 3 mm thick sections through the posterior fossa and 3 mm thick sections through the remaining calvarium. Study is performed within 24 hours of arrival to the hosp ital. No abnormal hyperdensity is present to suggest an acute intracranial hemorrhage. No mass lesion is evident. Physiologic basal ganglion calcifications at the bilateral basal ganglion. There is some calcification in the anterior horn of the right lateral ventricle. There is a hypodens e area within the superior right basal ganglion and to a lesser degree within the left superior basal ganglion. This could be old lacunar infarcts. This could be white matter change. This was clearly ev ident on the right in December 2017. No acute infarcts are evident. Ventricles and sulci are appropriate for the patient age. There is opacification of the right visualized maxillary sinus. Remaining paranasal sinuses and masto id air cells are clear. IMPRESSIONS: 1. Suspected old ischemic changes or possibly lacunar infarcts within the bilateral basal ganglion. 2. No acute suspicious changes evident.
[2018-03-20] MEDS ORDERED: LORazepam 2 MG/ML INJ IV STA (16:22)
[2018-03-20 16:41] LABS: Appearance,Urine Clear (Clear); Bilirubin,Urine Negative (Negative); Blood,Urine Trace (Negative); Color,Urine Yellow; Glucose,Urine (UA) Negative (Negative); Hyaline Casts,Urine 15 /lpf (0-2); Ketones,Urine 3+ (Negative); Leukocyte Esterase,Urine Negative (Negative); Mucus,Urine Occasional /hpf; Nitrite,Urine Negative (Negative); Protein,Urine 2+ (Negative); RBC,Urine 18 /hpf (0-5); Specific Gravity,Urine 1.022 (1.001-1.035); Sperm,Urine Occasional /hpf; Urobilinogen,Urine <2.0 mg/dL (<2.0); WBC,Urine 11 /hpf (0-5)
--- NOTE | 2018-03-20 17:56 | CT ---
EXAMINATION TYPE: CT brain wo con DATE OF EXAM: 03/20/2018 COMPARISON: Today HISTORY: Fall post prior CT of today. CT DLP: 1061 mGycm. Automated Exposure Control for Dose Reduction was Utilized. TECHNIQUE: CT scan of the head is performed without contrast. FINDINGS: Ventricles of normal size. There is symmetric thalamic calcification. There is 14 mm hypode nse area in the right anterior internal capsule. There is no midline shift. There is scalp soft tissu e swelling in the left parietal region. The calvarium is intact. There is 8 mm hypodense focus in the white matter right posterior parietal lobe. IMPRESSION: Lacunar infarcts in the right internal capsule and right parietal lobe. This appears unchanged. There is new left parietal scalp soft tissue swelling compared to previous exam.
[2018-03-20] MEDS ORDERED: LORazepam 1 MG TAB PO PRN (19:31)
[2018-03-20] MEDS ORDERED: NALOXONE 0.4 MG/ML 1 ML VIAL IV PRN (19:31)
[2018-03-20] MEDS ORDERED: ACETAMINOPHEN TAB 325 MG TAB PO PRN (19:31)
[2018-03-20] MEDS ORDERED: ONDANSETRON 4 MG/2 ML VIAL IVP PRN (19:31)
[2018-03-20] MEDS ORDERED: LORazepam 2 MG/ML INJ IV PRN (19:31)
[2018-03-20] MEDS: clonazePAM 0.5 MG TAB PO PRN (22:25)
[2018-03-20] MEDS: LISINOPRIL 2.5 MG TAB PO SCH (22:25)
[2018-03-21] MEDS ORDERED: levETIRAcetam IV 500 MG in SODIUM CHLORIDE 0.9% 100 ML IVPB STA (00:42)
--- NOTE | 2018-03-21 01:16 | CT ---
EXAMINATION TYPE: CT brain wo con DATE OF EXAM: 03/21/2018 COMPARISON: 03/20/2018 HISTORY: Prior CT done 03/20/18, AMS, confusion with nausea and vomiting CT DLP: 1036.00 mGycm. Automated Exposure Control for Dose Reduction was Utilized. TECHNIQUE: CT scan of the head is performed without contrast. FINDINGS: There is a 2 x 1 cm area of hypodensity in the anterior right internal capsule. There is no mass effect nor midline shift. There is no sign of intracranial hemorrhage. There is 3 mm calcific ation in the anterior right internal capsule. There is symmetric thalamic calcification. There is no evidence of intracranial mass. The calvarium is intact. There is 8 mm hypodense focus at the chao-whi te matter junction right posterior parietal lobe. IMPRESSION: Anterior right internal capsule lacunar infarct unchanged compared to yesterday. Small lacunar infarc t right parietal lobe unchanged. Left parietal scalp soft tissue swelling unchanged.
[2018-03-21 03:43] VITALS: BMI 22.3
[2018-03-21] MEDS: LEVOTHYROXINE 50 MCG TAB PO SCH (05:27)
[2018-03-21] MEDS: levETIRAcetam 500 MG TAB PO SCH ×3 (07:35→20:32)
[2018-03-21] MEDS: clonazePAM 0.5 MG TAB PO PRN ×2 (07:39→15:29)
[2018-03-21] MEDS: FLUoxetine HCL 20 MG CAP PO SCH (08:32)
[2018-03-21] MEDS: ALLOPURINOL 100 MG TAB PO SCH (08:33)
[2018-03-21] MEDS: METOPROLOL SUCCINATE (ER) 25 MG TAB.ER.24H PO SCH (08:33)
[2018-03-21 08:36] LABS: Basophils % (A) 0 %; Eosinophils % (A) 0 %; HCT 38.1 % (39.0-53.0); HGB 12.5 gm/dL (13.0-17.5); Lymphocytes # (A) 0.8 k/uL (1.0-4.8); Lymphocytes % (A) 15 %; MCH 32.7 pg (25.0-35.0); MCHC 32.7 g/dL (31.0-37.0); MCV 100.2 fL (80.0-100.0); Macrocytosis Slight; Mean Platelet Volume 6.9; Monocytes # (A) 0.4 k/uL (0-1.0); Monocytes % (A) 7 %; Neutrophils % (A) 76 %; RBC 3.81 m/uL (4.30-5.90); RDW 14.4 % (11.5-15.5); WBC 5.3 k/uL (3.8-10.6)
[2018-03-21 08:55] LABS: ALT 118 U/L (21-72); AST 170 U/L (17-59); Albumin 3.6 g/dL (3.5-5.0); Alkaline Phosphatase 83 U/L (38-126); Anion Gap 11 mmol/L; Blood Urea Nitrogen 11 mg/dL (9-20); Carbon Dioxide 23 mmol/L (22-30); Chloride 102 mmol/L (98-107); Glucose 79 mg/dL (74-99); Sodium 136 mmol/L (137-145); Total Bilirubin 1.1 mg/dL (0.2-1.3); Total Protein 6.3 g/dL (6.3-8.2)
[2018-03-21 09:14] LABS: Platelet Count 89 k/uL (150-450)
[2018-03-21 09:15] LABS: Poikilocytosis (M) Present
--- NOTE | 2018-03-21 13:15 | P.HPIM ---
History of Present Illness H&P Date: 03/21/18 Chief Complaint: Seizures and face lacerations This is a 47-year-old male patient of Dr. Fox. Patient presented to the emergency room with complaints of witnessed seizure by his mother. Patient states he was standing in the kitchen when he had a seizure. Patient does state he has a significant history of seizures but never sought out treatment. Patient states he's had a "few" seizures but has not received medical attention. Patient was unclear as to when most recent seizure was. Patient states to commercial underwriter that most recent seizure was a couple months ago. Per medical record, Last seizure was March 2016 Patient's. Additional medical history includes chest pain, CVA, thyroid disorder, cardiac ablation, anxiety and depression. Patient had an additional witnessed seizure in the emergency room at that time patient did fall backwards and hit his head. A repeat CT of the head was performed at that time. Initial head CT showed suspected old ischemic changes or possibly lacunar infarcts within the bilateral basal ganglion. No acute suspicious changes evident. Repeat head CT post second seizure in emergency room showing new left parietal scalp soft tissue swelling compared to previous exam. Patient had an additional seizure and third CT of the head was completed and was unchanged. Dr. Duff was paged multiple times per nursing staff with no return call. Dr. Ma initiating [facility]. Neurology consult has been placed. EEG has been ordered. Ativan added for seizure activity. At this time patient is alert and oriented 3. Patient does appear to be a poor historian. Patient denies any change to diet or medication. Liver enzymes also elevated AST 260 ALT 188 alkaline phosphatase 130. Liver ultrasound has been ordered along with consult from Dr. Goldstein. Platelet also low at 89. Patient does state he drinks one beer nightly. This time patient does deny any chest pain or shortness of breath. Patient denies abdominal pain nausea, vomiting or diarrhea. Patient denies any urinary burning or frequency. Discussed with nursing staff to call Dr. Duff make sure he is aware of consult. Review of Systems Please refer to HPI otherwise unremarkable Past Medical History Past Medical History: Chest Pain / Angina, CVA/TIA, Seizure Disorder, Thyroid Disorder Additional Past Medical History / Comment(s): States TIA from xrays- no deficits , v-tach, 2 seizures in 03/2016 - then 1 at home and 2 in ER on 03/20/18, gout. History of Any Multi-Drug Resistant Organisms: None Reported Past Surgical History: Cardiac Ablation, Heart Catheterization Additional Past Surgical History / Comment(s): Tilt table test, stress test 2017 , heart cath 2017. Past Anesthesia/Blood Transfusion Reactions: No Reported Reaction Additional Past Anesthesia/Blood Transfusion Reaction / Comment(s): Never had general anesthesia/transfusions. Past Psychological History: Anxiety, Depression, Panic Disorder Smoking Status: Never smoker Past Alcohol Use History: Occasional Additional Past Alcohol Use History / Comment(s): Pt. states he works at a [employer] so he will drink 1 beer after work. States he drinks maybe 5 drinks/ week. Past Drug Use History: None Reported - Past Family History Mother Family Medical History: No Reported History Father Additional Family Medical History / Comment(s): BREATHING PROBLEMS Medications and Allergies Home Medications Medication Instructions Recorded Confirmed Type Metoprolol Succinate (ER) [Toprol 25 mg PO QAM 09/14/16 03/20/18 History XL] clonazePAM [KlonoPIN] 0.5 mg PO QID PRN 09/14/16 03/20/18 History Aspirin [Adult Low Dose Aspirin EC] 81 mg PO DAILY 02/22/17 03/20/18 History Lisinopril [Zestril] 2.5 mg PO HS 02/22/17 03/20/18 History Allopurinol [Zyloprim] 100 mg PO DAILY 03/20/18 03/20/18 History FLUoxetine HCL [PROzac] 40 mg PO DAILY 03/20/18 03/20/18 History Levothyroxine Sodium [Synthroid] 50 mcg PO DAILY 03/20/18 03/20/18 History Allergies Allergy/AdvReac Type Severity Reaction Status Date / Time amoxicillin Allergy Rash/Hives Verified 03/21/18 01:23 Sulfa (Sulfonamide Allergy Rash/Hives Verified 03/21/18 01:23 Antibiotics) Physical Exam Vitals: Vital Signs Temp Pulse Pulse Resp BP BP BP 03/21/18 07:00 99.4 F 94 16 125/75 03/20/18 23:20 97.1 F L 103 H 18 115/83 03/20/18 21:45 98.2 F 105 H 20 130/77 03/20/18 20:30 98.6 F 98 18 138/67 10/03/18 19:39 93 18 139/78 10/03/18 18:06 98 18 145/73 03/20/18 16:23 113 H 18 179/69 03/20/18 14:21 98.2 F 95 18 116/71 Pulse Ox 03/21/18 07:00 96 03/20/18 23:20 92 L 03/20/18 21:45 97 03/20/18 20:30 94 L 03/20/18 19:39 100 03/20/18 18:06 94 L 03/20/18 16:23 92 L 03/20/18 14:21 95 Intake and Output 03/20/18 03/21/18 03/21/18 22:59 06:59 14:59 Intake Total 0 275 Output Total 200 Balance 0 -200 275 Intake: Oral 0 275 Output: Urine 200 Other: Voiding Method Urinal Urinal Weight 58.967 kg 58.967 kg Head normocephalic Neck supple Lungs clear to auscultation bilaterally no wheezing or crackles Heart regular rate and rhythm S1-S2, no rub or gallop Abdomen is soft nontender nondistended positive bowel sounds no hepatosplenomegaly Extremities no edema Neuro alert and orientated to 3 Patient does have a laceration to upper lip Results CBC & Chem 7: 03/21/18 07:49 03/21/18 07:49 Labs: Abnormal Lab Results - Last 24 Hours (Table) 03/20/18 03/20/18 03/20/18 Range/Units 14:57 14:57 Unknown RBC (4.30-5.90) m/uL Hgb (13.0-17.5) gm/dL Hct (39.0-53.0) % MCV (80.0-100.0) fL Plt Count 132 L (150-450) k/uL Lymphocytes # 0.8 L (1.0-4.8) k/uL Sodium 136 L (137-145) mmol/L Carbon Dioxide 18 L (22-30) mmol/L Glucose 115 H (74-99) mg/dL Calcium (8.4-10.2) mg/dL AST 268 H (17-59) U/L ALT 188 H (21-72) U/L Alkaline Phosphatase 130 H (38-126) U/L Urine Protein 2+ H (Negative) Urine Ketones 3+ H (Negative) Urine Blood Trace H (Negative) Urine RBC 18 H (0-5) /hpf Urine WBC 11 H (0-5) /hpf Hyaline Casts 15 H (0-2) /lpf Urine Mucus Occasional H (None) /hpf Urine Sperm Occasional H (None) /hpf 03/21/18 03/21/18 Range/Units 07:49 07:49 RBC 3.81 L (4.30-5.90) m/uL Hgb 12.5 L (13.0-17.5) gm/dL Hct 38.1 L (39.0-53.0) % MCV 100.2 H (80.0-100.0) fL Plt Count 89 L (150-450) k/uL Lymphocytes # 0.8 L (1.0-4.8) k/uL Sodium 136 L (137-145) mmol/L Carbon Dioxide (22-30) mmol/L Glucose (74-99) mg/dL Calcium 8.0 L (8.4-10.2) mg/dL AST 170 H (17-59) U/L ALT 118 H (21-72) U/L Alkaline Phosphatase (38-126) U/L Urine Protein (Negative) Urine Ketones (Negative) Urine Blood (Negative) Urine RBC (0-5) /hpf Urine WBC (0-5) /hpf Hyaline Casts (0-2) /lpf Urine Mucus (None) /hpf Urine Sperm (None) /hpf Microbiology - Last 24 Hours (Table) 03/20/18 15:00 Urine Culture - Preliminary Urine,Voided Thrombosis Risk Factor Assmnt - Choose All That Apply Any of the Below Risk Factors Present?: No Other Risk Factors: No Other congenital or acquired thrombophilia - If yes, enter type in comment: No Thrombosis Risk Factor Assessment Level: Very Low Risk Assessment and Plan Assessment: 1. Seizures. Neurology has been consulted. Multiple head CTs completed. Keppra initiated by primary care. Ativan added for seizure activity. 2. Elevated liver enzymes AST 268 ALT 180 alkaline and alkaline phosphatase 130. Liver ultrasound has been ordered to determine consulted. 3. Thrombocytopenia. Platelet 89. 4. History of seizure disorder. Patient states he has not received previous medical treatment for seizures 5. History of cardiac ablation due to supraventricular tachycardia 6. History of CVA 7. History of thyroid disorder 8. History of chest pain 9. Laceration to upper lip and laceration to right side of chin. SCDs for DVT prophylaxis due to thrombocytopenia. GI prophylaxis Protonix urine culture has been sent A.m. labs have been ordered Time with Patient: Greater than 30 (Greater than 60% of the total time spent in counseling and coordination of care. I performed an examination of the patient and discussed their management with the Nurse Practitioner. I have reviewed the Nurse Practitioner's notes and agree with the documented findings and plan of care)
[2018-03-21] MEDS: LISINOPRIL 2.5 MG TAB PO SCH (20:32)
--- NOTE | 2018-03-21 21:35 | P.CNNES ---
History of Present Illness Consult date: 03/21/18 Reason for Consult: Patient admitted with new onset seizures. History of Present Illness: This patient is a 47-year-old right-handed white male was brought into the emergency room yesterday at about 2:30 in the afternoon after he was found collapsed in his home. According to his father who provided the medical history of bedside today the patient apparently was found unconscious on the his bedroom floor. There was some blood on the floor as he had struck his slip and was bleeding. Apparently he was not having any seizure-like activity at the time when his father found him. He immediately EMS was called to the home. Apparently he has been having recurrent spells suggesting underlying seizure disorder and is being followed by Dr. Sow. Patient states that he has not been on any anticonvulsant medication and his symptoms have been ongoing for over 7 years. The patient states his most recent seizure occurred about 2 months ago. Once again he has not been on any specific anticonvulsant medication. He was brought into the emergency room yesterday afternoon for further evaluation. He was seen in the ER by physician staffing assistant Jose Maria Del Real. He was sent for a computed tomography scan of the brain on 03/20/2018 which was reviewed and revealed evidence of suspected old ischemic changes possibly lacunar infarcts in the bilateral basal ganglia area. No other acute or suspicious changes were evident on that CAT scan. Apparently in the emergency room the patient had 2 further episodes of seizure activity. One was witnessed by his mother and apparently he was convulsive. He was sent for another repeat computed tomography scan of the brain as he had fallen backwards and sustained a mild contusion to the back of his head. CAT scan was repeated and revealed lacunar infarcts in the right internal capsule and right parietal lobe. This appeared unchanged from his previous study. There was a new left parietal's scalp soft tissue swelling which was new on this exam. The patient was loaded with IV Keppra and was admitted to the hospital. He had a follow-up computed tomography scan of the brain today on 03/21/2018. This once again reveals a right internal capsule lacunar infarct unchanged from yesterday. A small lacunar infarct in the right parietal lobe was also noted and is unchanged. Left parietal scalp soft tissue swelling was unchanged. The patient is currently on Keppra for primary anticonvulsant therapy. He was noted to have hepatic dysfunction with elevated liver enzymes. He is to be seen by gastroenterology. Liver ultrasound has been ordered as well. Patient also has evidence of thrombocytopenia. His platelet counts were low at 89,000. He may require hematology consultation as well. Patient states he does have history of previous TIA and stroke like symptoms. His May explain the findings on his multiple CAT scans. At this time we are recommending he should be maintained on Keppra for seizure prophylaxis. He has undergone a recent MRI of the brain which was completed on 12/31/2017 and was ordered by Dr. Sow. The impression on this MRI was nonspecific white matter changes differential diagnosis including remote ischemia. We have discussed the [place] driving law in detail today with the patient. He is told that he cannot drive in the [facility] for appeared of 6 months following his recent seizure episode that was recorded in the emergency room today. He is aware of the restriction for driving. Currently he is not applied for recent drivers license. We have recommended the patient should be maintained on Keppra monotherapy for long- term seizure prophylaxis and should follow-up with Dr. Sow at the time of his discharge. His overall prognosis at this time remains guarded. We should continue with seizure precautions for this patient during this admission. Review of Systems Constitutional: Denies chills, Denies fever Eyes: denies blurred vision, denies pain Ears, nose, mouth and throat: Denies headache, Denies sore throat Cardiovascular: Denies chest pain, Denies shortness of breath Respiratory: Denies cough Gastrointestinal: Denies abdominal pain, Denies diarrhea, Denies nausea, Denies vomiting Musculoskeletal: Denies myalgias Integumentary: Denies pruritus, Denies rash Neurological: Reports change in mentation, Reports confusion, Reports convulsions, Reports memory loss, Reports seizures, Denies numbness, Denies weakness Psychiatric: Reports confusion, Reports disorientation, Reports memory loss, Denies anxiety, Denies depression Endocrine: Denies fatigue, Denies weight change Past Medical History Past Medical History: Chest Pain / Angina, CVA/TIA, Seizure Disorder, Thyroid Disorder Additional Past Medical History / Comment(s): States TIA from xrays- no deficits , v-tach, 2 seizures in 03/2016 - then 1 at home and 2 in ER on 03/20/18, gout. History of Any Multi-Drug Resistant Organisms: None Reported Past Surgical History: Cardiac Ablation, Heart Catheterization Additional Past Surgical History / Comment(s): Tilt table test, stress test 2017 , heart cath 2017. Past Anesthesia/Blood Transfusion Reactions: No Reported Reaction Additional Past Anesthesia/Blood Transfusion Reaction / Comment(s): Never had general anesthesia/transfusions. Past Psychological History: Anxiety, Depression, Panic Disorder Smoking Status: Never smoker Past Alcohol Use History: Occasional Additional Past Alcohol Use History / Comment(s): Pt. states he works at a [employer] so he will drink 1 beer after work. States he drinks maybe 5 drinks/ week. Past Drug Use History: None Reported - Past Family History Mother Family Medical History: No Reported History Father Additional Family Medical History / Comment(s): BREATHING PROBLEMS Medications and Allergies Home Medications Medication Instructions Recorded Confirmed Type Metoprolol Succinate (ER) [Toprol 25 mg PO QAM 09/14/16 03/20/18 History XL] clonazePAM [KlonoPIN] 0.5 mg PO QID PRN 09/14/16 03/20/18 History Aspirin [Adult Low Dose Aspirin EC] 81 mg PO DAILY 02/22/17 03/20/18 History Lisinopril [Zestril] 2.5 mg PO HS 02/22/17 03/20/18 History Allopurinol [Zyloprim] 100 mg PO DAILY 03/20/18 03/20/18 History FLUoxetine HCL [PROzac] 40 mg PO DAILY 03/20/18 03/20/18 History Levothyroxine Sodium [Synthroid] 50 mcg PO DAILY 03/20/18 03/20/18 History Allergies Allergy/AdvReac Type Severity Reaction Status Date / Time amoxicillin Allergy Rash/Hives Verified 03/21/18 01:23 Sulfa (Sulfonamide Allergy Rash/Hives Verified 03/21/18 01:23 Antibiotics) Physical Examination - Vital Signs Vital Signs: Vital Signs Temp Pulse Pulse Resp BP BP BP 03/21/18 15:45 98.5 F 68 16 124/68 03/21/18 07:00 99.4 F 94 16 125/75 03/20/18 23:20 97.1 F L 103 H 18 115/83 03/20/18 21:45 98.2 F 105 H 20 130/77 03/20/18 20:30 98.6 F 98 18 138/67 03/20/18 19:39 93 18 139/78 03/20/18 18:06 98 18 145/73 Pulse Ox 03/21/18 15:45 100 03/21/18 07:00 96 03/20/18 23:20 92 L 03/20/18 21:45 97 03/20/18 20:30 94 L 03/20/18 19:39 100 03/20/18 18:06 94 L Intake and Output 03/21/18 03/21/18 03/21/18 06:59 14:59 22:59 Intake Total 875 Output Total 200 Balance -200 875 Intake: Oral 875 Output: Urine 200 Other: Voiding Method Urinal Urinal # Voids 1 Weight 58.967 kg 58.967 kg - Constitutional General appearance: average body habitus, cooperative - EENT EENT: PERRL, mucous membranes moist - Respiratory Respiratory: lungs clear, normal breath sounds - Cardiovascular Cardiovascular: regular rate, normal S1, normal S2 Extremities: no peripheral edema bilaterally - Gastrointestinal Gastrointestinal: normoactive bowel sounds - Integumentary Integumentary: normal - Neurologic Cranial nerve examination: PERRL, EOMI, VFF, V1/V2/V3 grossly intact, face symmetric, tongue midline, intact gag reflex, intact corneal reflex, normal palatal elevation Speech examination: intact Sensorimotor examination: intact Detailed motor examination: grossly full strength in all extremities Motor examination - right side: 4/5: biceps, triceps, wrist flexion, wrist extension, agriculture professor, hip flexors, knee extensors, dorsiflexion, toe extension (EHL) , plantarflexion Motor examination - left side: 4/5: biceps, triceps, wrist flexion, wrist extension, agriculture professor, hip flexors, knee extensors, dorsiflexion, toe extension (EHL) , plantarflexion Detailed sensory examination: intact Reflex and gait examination: intact Reflexes: 1+: ankle, bicep, knee, tricep - Musculoskeletal Musculoskeletal: no pain - Psychiatric Psychiatric: mood/affect appropriate, cooperative Results - Laboratory Findings CBC and BMP: 03/21/18 07:49 03/21/18 07:49 Abnormal Lab Findings: Abnormal Labs 03/20/18 03/20/18 03/20/18 14:57 14:57 Unknown RBC Hgb Hct MCV Plt Count 132 L Lymphocytes # 0.8 L Sodium 136 L Carbon Dioxide 18 L Glucose 115 H Calcium AST 268 H ALT 188 H Alkaline Phosphatase 130 H Urine Protein 2+ H Urine Ketones 3+ H Urine Blood Trace H Urine RBC 18 H Urine WBC 11 H Hyaline Casts 15 H Urine Mucus Occasional H Urine Sperm Occasional H 03/21/18 03/21/18 07:49 07:49 RBC 3.81 L Hgb 12.5 L Hct 38.1 L MCV 100.2 H Plt Count 89 L Lymphocytes # 0.8 L Sodium 136 L Carbon Dioxide Glucose Calcium 8.0 L AST 170 H ALT 118 H Alkaline Phosphatase Urine Protein Urine Ketones Urine Blood Urine RBC Urine WBC Hyaline Casts Urine Mucus Urine Sperm Assessment and Plan (1) New onset seizure Current Visit: Yes Status: Acute Code(s): R56.9 - UNSPECIFIED CONVULSIONS SNOMED Code(s): 29925695 (2) History of TIA (transient ischemic attack) and stroke Current Visit: Yes Status: Acute Code(s): Z86.73 - PRSNL HX OF TIA (TIA), AND CEREB INFRC W/O RESID DEFICITS SNOMED Code(s): 083563046 (3) Facial laceration Current Visit: Yes Status: Acute Code(s): S01.81XA - LACERATION W/O FOREIGN BODY OF OTH PART OF HEAD, INIT ENCNTR SNOMED Code(s): 849920351 (4) Scalp hematoma Current Visit: Yes Status: Acute Code(s): S00.03XA - CONTUSION OF SCALP, INITIAL ENCOUNTER SNOMED Code(s): 454343382 Plan: This patient is a 47-year-old right-handed white male who was admitted to hospital after having been found yesterday afternoon collapsed in his home. Father found him on the ground unresponsive with left on the floor. Apparently he had suffered a laceration to his lip and was unresponsive. It was felt he may have had a seizure. He was brought into the emergency room yesterday afternoon for further evaluation at [facility]. He was seen in the emergency room by a physician staffing assistant into the right. He was sent for a computed tomography scan of the brain results of which are noted above. He subsequently was started on Keppra for seizure prophylaxis and admitted to the hospital. His neurological examination at this time is nonfocal. He does have evidence of hepatic dysfunction with elevated liver enzymes and is to be seen by gastroenterology and are awaiting their consultation. The patient underwent multiple CT scans results of which are noted above. He is to be maintained on Keppra 500 mg by mouth 3 times a day. We will obtain a Keppra level tomorrow for further evaluation. Apparently he underwent an EEG and this will be reviewed later today. His overall prognosis at this time remains very guarded. He was updated on the [place] driving law which states he cannot drive and state [facility] for her. To 6 months following his last seizure. He is aware of this restriction. His father who was at bedside was also updated on all of his neurological findings and our current treatment plan and is in full agreement. Patient should follow-up with Dr. Sow upon discharge from the hospital. His overall prognosis at this time remains very guarded. Time with Patient: Greater than 30
--- NOTE | 2018-03-21 23:01 | EEG ---
ELECTROENCEPHALOGRAM REPORT DATE OF EE03/21/2018 ELECTROENCEPHALOGRAPHIC EXAMINATION REPORT: INDICATION FOR EXAMINATION: This patient is a 47-year-old male being evaluated for new-onset seizure disorder. AGE: 47. EEG FINDINGS: A routine 21-channel awake digital EEG recording was accomplished utilizing the 10-20 international system with bipolar and referential montages. The background activity in the most alert resting state consists of a low amplitude, fairly well-developed and well-sustained 7-8 Hz activity over the posterior head regions. Muscle and movement artifact was observed on several occasions during the tracing. There was a moderate amount of low amplitude 18-20 Hz beta activity seen throughout the entire tracing. Hyperventilation was not performed. Photic stimulation at flash frequencies of 2-30 Hz produced a photomyogenic response throughout the entire procedure. No epileptiform discharges were seen. IMPRESSION: This EEG is within normal limits for the patient's age. The EEG failed to reveal any focal, lateralized, or epileptiform abnormalities. Clinical correlation is recommended. MMMARGARITA / IJN: [id number] /
[2018-03-22] MEDS: LEVOTHYROXINE 50 MCG TAB PO SCH (05:46)
[2018-03-22 05:51] LABS: ALT 119 U/L (21-72); AST 156 U/L (17-59); Albumin 3.5 g/dL (3.5-5.0); Alkaline Phosphatase 66 U/L (38-126); Anion Gap 7 mmol/L; Blood Urea Nitrogen 10 mg/dL (9-20); Calcium 8.7 mg/dL (8.4-10.2); Carbon Dioxide 28 mmol/L (22-30); Chloride 103 mmol/L (98-107); Glucose 81 mg/dL (74-99); Potassium 3.9 mmol/L (3.5-5.1); Sodium 138 mmol/L (137-145); Total Bilirubin 0.9 mg/dL (0.2-1.3); Total Protein 6.1 g/dL (6.3-8.2)
[2018-03-22 05:52] LABS: Basophils % (A) 0 %; Eosinophils # (A) 0.1 k/uL (0-0.7); Eosinophils % (A) 3 %; HCT 38.5 % (39.0-53.0); HGB 12.5 gm/dL (13.0-17.5); Lymphocytes % (A) 29 %; MCH 32.6 pg (25.0-35.0); MCHC 32.5 g/dL (31.0-37.0); MCV 100.1 fL (80.0-100.0); Mean Platelet Volume 7.1; Monocytes # (A) 0.3 k/uL (0-1.0); Monocytes % (A) 8 %; Neutrophils % (A) 57 %; RBC 3.85 m/uL (4.30-5.90); RDW 14.1 % (11.5-15.5); WBC 3.4 k/uL (3.8-10.6)
[2018-03-22 06:03] LABS: Platelet Count 79 k/uL (150-450)
[2018-03-22 06:14] VITALS: RESP 18
[2018-03-22] MEDS ORDERED: PANTOPRAZOLE 40 MG TABLET PO SCH (07:30)
--- NOTE | 2018-03-22 08:37 | US ---
EXAMINATION TYPE: US abdomen complete DATE OF EXAM: 03/22/2018 COMPARISON: US 02/21/2018 CLINICAL HISTORY: elevated liver enzymes. EXAM MEASUREMENTS: Liver Length: 15.3 cm Gallbladder Wall: 0.2 cm CBD: 0.4 cm Spleen: 10.4 cm Right Kidney: 9.9 x 4.5 x 4.7 cm Left Kidney: 9.7 x 4.5 x 4.0 cm Pancreas: Tail obscured by overlying bowel gas Liver: Increased attenuation, decreased visualization of vessels suggestive of fatty infiltrate Gallbladder: No stones seen Evidence for sonographic Chand's sign: No CBD: wnl Spleen: wnl Right Kidney: No hydronephrosis or masses seen Left Kidney: No hydronephrosis or masses seen Upper IVC: wnl Abd Aorta: wnl There is increased echogenicity of the hepatic parenchyma with diminished visualization of the portal triads most commonly relating to hepatic steatosis and limiting evaluation for underlying hepatic ma sses. The intrahepatic portion of the IVC and proximal abdominal aorta are within normal limits. The re is no evidence of cholelithiasis. Common bile duct is unremarkable. The visualized portions of t he pancreas are homogenous. The spleen is unremarkable. Kidneys are symmetric and free of hydroneph rosis. No renal lesions are seen. IMPRESSION: 1. Sonographic findings again most compatible with hepatic steatosis. 2. No evidence of cholelithiasis or acute cholecystitis.
[2018-03-22] MEDS: ALLOPURINOL 100 MG TAB PO SCH (08:53)
[2018-03-22] MEDS: FLUoxetine HCL 20 MG CAP PO SCH (08:53)
[2018-03-22] MEDS: levETIRAcetam 500 MG TAB PO SCH ×2 (08:53→15:31)
[2018-03-22] MEDS: clonazePAM 0.5 MG TAB PO PRN ×2 (08:53→15:31)
[2018-03-22] MEDS: METOPROLOL SUCCINATE (ER) 25 MG TAB.ER.24H PO SCH (08:53)
--- NOTE | 2018-03-22 09:39 | P.PN ---
Subjective Progress Note Date: 03/22/18 This is a 47-year-old male patient of Dr. Fox. Patient presented to the emergency room with complaints of witnessed seizure by his mother. Patient states he was standing in the kitchen when he had a seizure. Patient does state he has a significant history of seizures but never sought out treatment. Patient states he's had a "few" seizures but has not received medical attention. Patient was unclear as to when most recent seizure was. Patient states to financial writer that most recent seizure was a couple months ago. Per medical record, Last seizure was March 2016 Patient's. Additional medical history includes chest pain, CVA, thyroid disorder, cardiac ablation, anxiety and depression. Patient had an additional witnessed seizure in the emergency room at that time patient did fall backwards and hit his head. A repeat CT of the head was performed at that time. Initial head CT showed suspected old ischemic changes or possibly lacunar infarcts within the bilateral basal ganglion. No acute suspicious changes evident. Repeat head CT post second seizure in emergency room showing new left parietal scalp soft tissue swelling compared to previous exam. Patient had an additional seizure and third CT of the head was completed and was unchanged. Dr. Duff was paged multiple times per nursing staff with no return call. Dr. Ma initiating [facility]. Neurology consult has been placed. EEG has been ordered. Ativan added for seizure activity. At this time patient is alert and oriented 3. Patient does appear to be a poor historian. Patient denies any change to diet or medication. Liver enzymes also elevated AST 260 ALT 188 alkaline phosphatase 130. Liver ultrasound has been ordered along with consult from Dr. Goldstein. Platelet also low at 89. Patient does state he drinks one beer nightly. This time patient does deny any chest pain or shortness of breath. Patient denies abdominal pain nausea, vomiting or diarrhea. Patient denies any urinary burning or frequency. Discussed with nursing staff to call Dr. Duff make sure he is aware of consult. On 03/22/2018 patient currently sitting on side of bed padding bed. Per nursing staff patient has bouts of confusion including where he is at and getting dressed and thinking he is leaving. At this time patient is alert and oriented 3. Explained to patient that we would like him to be seen by a couple more doctors prior to discharge and the importance of sorting out his medication in regards to seizure medication prior to discharge. At this time patient does appear compliant. Patient denies chest pain or shortness of breath. Patient denies nausea vomiting or diarrhea. Patient denies any urinary burning or frequency. Objective - Vital Signs Vital signs: Vital Signs Temp 98.8 F 03/22/18 06:13 Pulse 82 03/22/18 06:13 Resp 18 03/22/18 08:54 BP 117/73 03/22/18 06:13 Pulse Ox 94 L 03/22/18 06:13 Intake & Output 03/21/18 03/22/18 03/22/18 18:59 06:59 18:59 Intake Total 1475 940 200 Balance 1475 940 200 Weight 58.967 kg Intake: Oral 1475 940 200 Other: Voiding Method Urinal Toilet Toilet Urinal # Voids 1 2 - Exam Head normocephalic Neck supple Lungs clear to auscultation bilaterally no wheezing or crackles Heart regular rate and rhythm S1-S2, no rub or gallop Abdomen is soft nontender nondistended positive bowel sounds no hepatosplenomegaly Extremities no edema Neuro alert and orientated to 3. Patient does have bouts of confusion Patient does have a laceration to upper lip - Labs CBC & Chem 7: 03/22/18 05:20 03/22/18 05:20 Labs: Abnormal Lab Results - Last 24 Hours (Table) 03/22/18 03/22/18 Range/Units 05:20 05:20 WBC 3.4 L (3.8-10.6) k/uL RBC 3.85 L (4.30-5.90) m/uL Hgb 12.5 L (13.0-17.5) gm/dL Hct 38.5 L (39.0-53.0) % MCV 100.1 H (80.0-100.0) fL Plt Count 79 L (150-450) k/uL AST 156 H (17-59) U/L ALT 119 H (21-72) U/L Total Protein 6.1 L (6.3-8.2) g/dL Microbiology - Last 24 Hours (Table) 03/20/18 15:00 Urine Culture - Final Urine,Voided Assessment and Plan Assessment: 1. Seizures. Neurology has been consulted. Multiple head CTs completed. Keppra initiated by primary care. Ativan added for seizure activity. Per neurological services patient is maintained on Keppra 503 times a day. Keppra level has been ordered. Patient updated on [place] driving law. Patient to follow-up outpatient with Dr. Melendez upon discharge. EKG completed and is within normal limits for patient's age failed to reveal any focal, lateralized or epileptiform abnormalities. 2. Elevated liver enzymes AST 268 ALT 180 alkaline and alkaline phosphatase 130. Liver ultrasound has been ordered to determine consulted. Abdominal ultrasound completed showing sonographic findings again most compatible with hepatic's steatosis. No evidence of Colace of cholelithiasis or acute cholecystitis. Liver enzymes are trending down AST 156 and ALT 119. GI services have been consulted 3. Thrombocytopenia. Platelet 79. 4. History of seizure disorder. Patient states he has not received previous medical treatment for seizures 5. History of cardiac ablation due to supraventricular tachycardia 6. History of CVA 7. History of thyroid disorder. TSH level has been ordered 8. History of chest pain 9. Laceration to upper lip and laceration to right side of chin. 10. Confusion and hallucinations. Patient does have known psych history including anxiety depression and panic disorder. Patient is on Prozac and Klonopin. She does report that he drinks 1 beer a day but not denies excessive alcohol intake. Psych consult has been placed. TSH will be ordered. SCDs for DVT prophylaxis due to thrombocytopenia. GI prophylaxis Protonix urine culture has been sent- urine culture negative A.m. labs have been ordered I performed an examination of the patient and discussed their management with the Nurse Practitioner. I have reviewed the Nurse Practitioner's notes and agree with the documented findings and plan of care
--- NOTE | 2018-03-22 09:43 | P.CONS ---
History of Present Illness - Reason for Consult Consult date: 03/22/18 Elevated liver enzymes Requesting physician: Aries Ma - Chief Complaint seizure - History of Present Illness 47-year-old male with a history of possible underlying seizure disorder, anxiety , depression, TIA, cardiac ablation, admitted with reports of possible seizure found collapsed on floor at home. Presently he is pacing the room fully dressed removed his IV requesting discharge. He is non-violent somewhat disorganized constantly folding his hospital linens; history taking is limited due to his agitation. Psychiatry has been consulted. Consult requested for elevated transaminases. Patient states he drinks beer on a daily basis and was drinking alcohol prior to admission. He denies excessive usage of alcohol prior to admission. One to 2 beers. To his memory no history of known liver disorders. No history of intravenous drug abuse or hepatitis. Ultrasound abdomen reported no gallstones. Normal CBD. Features of hepatic steatosis. Review of medications he was started on Keppra yesterday. Total bilirubin 0.9-1.3. AST 156-260. ALT 118-188. AP 66-130. Albumin 3.5- 4.7. BUN 18. Creatinine 0.8. Hemoglobin 12.5. Platelets 79-132. Denies abdominal pain. No F/C. View of medical records LFTs over the last year within normal limits with the exception of mild elevation of AST between 60-90. Hepatitis screen January 2018 , hepatitis B surface antibody reactive quantitative 63.8. Hepatitis C nonreactive. Review of Systems Obtained from medical records Constitutional: Denies fever, chills, sweats, weight gain, or loss. HEENT: Negative for migraines, blurred vision or loss, earaches, drainage, tinnitus, oral mucosal lesions, dysphagia, or odynophagia. Cardiac: Negative for chest pain, arrhythmias, or palpitation. Respiratory: Negative for shortness of breath, hemoptysis, cough, or sputum production. Gastrointestinal: See HPI for pertinent findings. Genitourinary: Negative for hematuria, urgency, frequency, polyuria, dysuria, or penile discharge. Musculoskeletal: Negative for muscle aches, swelling, arthritis, and arthralgias. Neurologic: Admitted with reported seizure. Negative for stroke or TIA. Endocrine: Negative for thyroid problems. Skin: Negative for rash or itching. Psychiatric: history for depression and anxiety ROS unobtainable: due to mental status Past Medical History Past Medical History: Chest Pain / Angina, CVA/TIA, Seizure Disorder, Thyroid Disorder Additional Past Medical History / Comment(s): States TIA from xrays- no deficits , v-tach, 2 seizures in 03/2016 - then 1 at home and 2 in ER on 03/20/18, gout. History of Any Multi-Drug Resistant Organisms: None Reported Past Surgical History: Cardiac Ablation, Heart Catheterization Additional Past Surgical History / Comment(s): Tilt table test, stress test 2017 , heart cath 2017. Past Anesthesia/Blood Transfusion Reactions: No Reported Reaction Additional Past Anesthesia/Blood Transfusion Reaction / Comm: Never had general anesthesia/transfusions. Past Psychological History: Anxiety, Depression, Panic Disorder Smoking Status: Never smoker Past Alcohol Use History: Occasional Additional Past Alcohol Use History / Comment(s): Pt. states he works at a [employer] so he will drink 1 beer after work. States he drinks maybe 5 drinks/ week. Past Drug Use History: None Reported - Past Family History Mother Family Medical History: No Reported History Father Additional Family Medical History / Comment(s): BREATHING PROBLEMS Medications and Allergies Home Medications Medication Instructions Recorded Confirmed Type Metoprolol Succinate (ER) [Toprol 25 mg PO QAM 09/14/16 03/20/18 History XL] clonazePAM [KlonoPIN] 0.5 mg PO QID PRN 09/14/16 03/20/18 History Aspirin [Adult Low Dose Aspirin EC] 81 mg PO DAILY 02/22/17 03/20/18 History Lisinopril [Zestril] 2.5 mg PO HS 02/22/17 03/20/18 History Allopurinol [Zyloprim] 100 mg PO DAILY 03/20/18 03/20/18 History FLUoxetine HCL [PROzac] 40 mg PO DAILY 03/20/18 03/20/18 History Levothyroxine Sodium [Synthroid] 50 mcg PO DAILY 03/20/18 03/20/18 History Allergies Allergy/AdvReac Type Severity Reaction Status Date / Time amoxicillin Allergy Rash/Hives Verified 03/21/18 01:23 Sulfa (Sulfonamide Allergy Rash/Hives Verified 03/21/18 01:23 Antibiotics) Physical Exam Vitals: Vital Signs Temp Pulse Resp BP Pulse Ox 03/22/18 08:54 18 03/22/18 06:13 98.8 F 82 18 117/73 94 L 03/22/18 00:38 15 03/21/18 20:40 98.0 F 82 15 124/74 98 03/21/18 15:45 98.5 F 68 16 124/68 100 Intake and Output 03/21/18 03/22/18 03/22/18 22:59 06:59 14:59 Intake Total 1340 200 200 Balance 1340 200 200 Intake: Oral 1340 200 200 Other: Voiding Method Toilet Toilet Urinal # Voids 1 2 Weight 58.967 kg General appearance: The patient is alert, oriented, pacing the room presently with a calm demeanor. HET: Head is normocephalic and atraumatic. Pupils are equal and reactive. Oropharynx is clear without lesions. Neck: Supple without lymphadenopathy. Trachea midline. Heart: S1 S2. Regular rate and rhythm. Lungs: No crackles or wheezes are heard. Abdomen: Soft, nontender, nondistended with bowel sounds. No peritoneal signs. No palpable organomegaly or masses. Extremities: Normal skin color and turgor. No cyanosis, rash, ulceration, clubbing, or edema. Radial and pedal pulses are 2/4 bilaterally. Neurological: No focal deficits. Strength and sensation are grossly intact. Results CBC & Chem 7: 03/22/18 05:20 03/22/18 05:20 Labs: Abnormal Lab Results - Last 24 Hours (Table) 03/22/18 03/22/18 Range/Units 05:20 05:20 WBC 3.4 L (3.8-10.6) k/uL RBC 3.85 L (4.30-5.90) m/uL Hgb 12.5 L (13.0-17.5) gm/dL Hct 38.5 L (39.0-53.0) % MCV 100.1 H (80.0-100.0) fL Plt Count 79 L (150-450) k/uL AST 156 H (17-59) U/L ALT 119 H (21-72) U/L Total Protein 6.1 L (6.3-8.2) g/dL Microbiology - Last 24 Hours (Table) 03/20/18 15:00 Urine Culture - Final Urine,Voided US - abdomen: report reviewed (Dr. Reynolds) Assessment and Plan Assessment: 1. Acute transaminitis with a history of reported alcohol consumption prior to admission possible alcohol hepatitis possible seizure related with underlying hepatic steatosis per ultrasound. 2. Acute seizure with underlying history of TIA. 3. Agitation. 4. Thrombocytopenia possible underlying liver disease. Recommendations: 1. Hepatitis screen. PT/INR. Daily CMP. Presently LFTs are improving. Check CK level evaluate for rhabdomyolysis. 2. Psychiatry consult. Will follow closely with you. Thank you for this kind referral and the opportunity to participate in the care of your patient. This consultation was discussed with Dr. Reynolds. The impression and plan of care have been directed as dictated.
[2018-03-22 12:52] LABS: T4, Free (Free Thyroxine) 0.69 ng/dL (0.78-2.19)
[2018-03-22 15:14] VITALS: BP 105/64; PULSE 63; TEMP 98.6
[2018-03-22 19:55] LABS: Hepatitis A Antibody IgM Non-Reactive (Non-Reactive); Hepatitis B Core IgM Non-Reactive (Non-Reactive)
== END 2018-03-22 16:40 | disposition left against medical advice (07) | DRG 101 ==
LOC: EC 14:13 → 4MS4W 19:57
PROVIDERS: ADMIT Internal Medicine; ATTEND Internal Medicine
PROC: 3E0234Z Introduction of Serum, Toxoid and Vaccine into Muscle, Percutaneous Approach (ICD-10-PCS; principal; 2018-03-20)
PROC: 0HQ1XZZ Repair Face Skin, External Approach (ICD-10-PCS; 2018-03-20)
DX: G40.909 Epilepsy, unspecified, not intractable, without status epilepticus (principal); R44.3 Hallucinations, unspecified; D69.6 Thrombocytopenia, unspecified; K76.0 Fatty (change of) liver, not elsewhere classified; S01.81XA Laceration without foreign body of other part of head, initial encounter; S00.03XA Contusion of scalp, initial encounter; S01.511A Laceration without foreign body of lip, initial encounter; E07.9 Disorder of thyroid, unspecified; K76.89 Other specified diseases of liver; Z23 Encounter for immunization; F41.0 Panic disorder [episodic paroxysmal anxiety]; F32.9 Major depressive disorder, single episode, unspecified; M10.9 Gout, unspecified; Z79.82 Long term (current) use of aspirin; Z79.890 Hormone replacement therapy; Z79.899 Other long term (current) drug therapy; Z88.1 Allergy status to other antibiotic agents; Z88.2 Allergy status to sulfonamides; Z86.73 Personal history of transient ischemic attack (TIA), and cerebral infarction without residual deficits; Z86.79 Personal history of other diseases of the circulatory system; W19.XXXA Unspecified fall, initial encounter; Z83.6 Family history of other diseases of the respiratory system
CPT/HCPCS: 12011; 36415; 70450; 76700; 80053; 80074; 80177; 81001; 82140; 82550; 84439; 84443; 85025; 87086; 90471; 90715; 93005; 95816; 96361; 96374; 96375; 99285

== ENCOUNTER → 2018-04-18 | Outpatient (CLI) | payer OTHER ==
[2018-04-18 17:27] LABS: LDL Cholesterol,Calculated 53.4 mg/dL (0.0-131.0); VLDL Calculation 43.6 mg/dL (5.00-40.00)
== END | disposition home or self-care (01) ==
LOC: LABWHC1 08:23
PROVIDERS: ATTEND Psychiatry & Neurology Pain Medicine
DX: I10 Essential (primary) hypertension (principal)
CPT/HCPCS: 36415; 80061

== ENCOUNTER 2018-06-18 11:38 | Inpatient (IN) | payer OTHER ==
[2018-06-18] MEDS ORDERED: SODIUM CHLORIDE 0.9% 1,000 ML IV ONE (12:15)
--- NOTE | 2018-06-18 12:26 | ED ---
General Adult HPI - General Chief complaint: Altered Mental Status Stated complaint: altered mental status Source: family, RN notes reviewed, old records reviewed Mode of arrival: ambulatory Limitations: altered mental status, physical limitation - History of Present Illness Initial comments: 48-year-old male patient past medical history of seizure disorder, TIA, cardiac ablation presents to ED with approximately 3 months of altered mental status that has been worse than the last 2 days. History is primarily reported by mother secondary to patient's mental status. Reports that patient has had confusion for approximately the last 3 months. Reports that he is on a seizure prophylactics medication for a seizure disorder. Additionally patient reports that he had a fall earlier in his room today that was not witnessed. Patient denies trauma to head or neck, loss of consciousness. Patient manages his medications at home. Patient reports that he is taking his medications as directed. Patient states that he did not take his levothyroxine the last 2 days. Patient is ambulatory. Systemic: Pt denies fatigue, myalgia, fever/chills, rash. Pt denies weakness, night sweats, weight loss. Neuro: Pt denies headache, visual disturbances, syncope or pre-syncope. HEENT: Pt denies ocular discharge or irritation, otalgia, rhinorrhea, pharyngitis or notable lymphadenopathy. Cardiopulmonary: Pt denies chest pain, SOB, heart palpitations, dyspnea on exertion. Abdominal/GI: Pt denies abdominal pain, n/v/d. : Pt denies dysuria, burning w/ urination, frequency/urgency. Denies new onset urinary or bowel incontinence. MSK: Pt denies myalgia, loss of strength or function in extremities. Neuro: Pt denies new onset weakness, paresthesias. - Related Data Home Medications Medication Instructions Recorded Confirmed Metoprolol Succinate (ER) [Toprol 25 mg PO QAM 09/14/16 06/18/18 XL] clonazePAM [KlonoPIN] 0.5 mg PO QID PRN 09/14/16 06/18/18 Aspirin [Adult Low Dose Aspirin EC] 81 mg PO DAILY 02/22/17 06/18/18 Lisinopril [Zestril] 2.5 mg PO HS 02/22/17 06/18/18 Allopurinol [Zyloprim] 100 mg PO DAILY 03/20/18 06/18/18 FLUoxetine HCL [PROzac] 40 mg PO DAILY 10/03/18 01/01/19 Levothyroxine Sodium [Synthroid] 50 mcg PO DAILY 03/20/18 06/18/18 Atorvastatin [Lipitor] 20 mg PO HS 06/18/18 06/18/18 Lacosamide [Vimpat] 200 mg PO BID 06/18/18 06/18/18 Meclizine [Antivert] 12.5 mg PO TID 06/18/18 06/18/18 Allergies Allergy/AdvReac Type Severity Reaction Status Date / Time amoxicillin Allergy Rash/Hives Verified 06/18/18 12:20 Sulfa (Sulfonamide Allergy Rash/Hives Verified 06/18/18 12:20 Antibiotics) Review of Systems ROS Statement: Those systems with pertinent positive or pertinent negative responses have been documented in the HPI. ROS Other: All systems not noted in ROS Statement are negative. Past Medical History Past Medical History: Chest Pain / Angina, CVA/TIA, Seizure Disorder, Thyroid Disorder Additional Past Medical History / Comment(s): States TIA from xrays- no deficits , v-tach, 2 seizures in 03/2016 - then 1 at home and 2 in ER on 03/20/18, gout. History of Any Multi-Drug Resistant Organisms: None Reported Past Surgical History: Cardiac Ablation, Heart Catheterization Additional Past Surgical History / Comment(s): Tilt table test, stress test 2017 , heart cath 2017. Past Anesthesia/Blood Transfusion Reactions: No Reported Reaction Additional Past Anesthesia/Blood Transfusion Reaction / Comment(s): Never had general anesthesia/transfusions. Past Psychological History: Anxiety, Depression, Panic Disorder Smoking Status: Never smoker Past Alcohol Use History: Occasional Past Drug Use History: None Reported - Past Family History Mother Family Medical History: No Reported History Father Additional Family Medical History / Comment(s): BREATHING PROBLEMS General Exam - General Exam Comments Initial Comments: Constitutional: NAD, AOX3, Pt has pleasant affect. HEENT: NC/AT, trachea midline, neck supple, no lymphadenopathy. Posterior pharynx non erythematous, without exudates. External ears appear normal, without discharge. Mucous membranes moist. Eyes PERRLA, EOM intact. There is no scleral icterus. No pallor noted. Cardiopulmonary: RRR, no murmurs, rubs or gallops, no JVD noted. Lungs CTAB in anterior and posterior french. No peripheral edema. Abdominal exam: Abdomen soft and non-distended. Abdomen non-tender to palpation in all 4 quadrants. Bowel sounds active in LLQ. No hepatosplenomegaly. No ecchymosis Neuro: CN II-XII intact. No nuchal rigidity. No cervical spinal tenderness. MSK: No posterior calf tenderness bilaterally, homans sign negative bilaterally. Posterior tibialis and radial pulse +2 bilaterally. Sensation intact in upper and lower extremities. Full active ROM in upper and lower extremities, 5/5 stregnth. Limitations: altered mental status, physical limitation Course Vital Signs 06/18/18 06/18/18 11:49 16:34 Temperature 98.2 F Pulse Rate 98 90 Respiratory 18 16 Rate Blood Pressure 143/94 156/93 O2 Sat by Pulse 100 95 Oximetry Medical Decision Making - Medical Decision Making 48-year-old male patient past medical history of seizure disorder, TIA, cardiac ablation presents to ED with approximately 3 months of altered mental status that has been worse than the last 2 days. History is primarily reported by mother secondary to patient's mental status. Reports that patient has had confusion for approximately the last 3 months. Reports that he is on a seizure prophylactics medication for a seizure disorder. Additionally patient reports that he had a fall earlier in his room today that was not witnessed. Physical exam displayed normal neurologic exam, no acute pathologic findings. VSS pt afebrile. Patient is oriented to location situation person time. Laboratory investigations revealed impressive CBC, cognition studies within normal limits. CMP revealed mildly increased creatinine of 1.81. CMP also revealed elevated AST and ALT, these enzymes appear to be chronically elevated. CK MB elevated to 475. UA nonimpressive. Troponin was negative. Ammonia was negative. Toxicology screen was positive for benzodiazepines, for which pt has prescription. further history taking revealed pt to be a chronic etoh user, approximately 2 beers per day. Pt has not drank for the last 2 days. repeat neuro exam was wnl but pt was slightly tremelous. Pt started on ciwa protocol, administered thiamine. EKG not concerning for acute ischemia. CT brain/cspine did not display acute pathology. CXR did not display acute cardiopulmonary process. Pt to be admitted for altered mental status. Case discussed and pt seen by Dr. Mercado. - Lab Data Result diagrams: 06/18/18 13:10 06/18/18 13:10 Lab Results 06/18/18 06/18/18 06/18/18 Range/Units 13:10 13:10 13:10 WBC 6.4 (3.8-10.6) k/uL RBC 4.19 L (4.30-5.90) m/uL Hgb 13.6 (13.0-17.5) gm/dL Hct 42.2 (39.0-53.0) % MCV 100.6 H (80.0-100.0) fL MCH 32.4 (25.0-35.0) pg MCHC 32.2 (31.0-37.0) g/dL RDW 14.9 (11.5-15.5) % Plt Count 189 (150-450) k/uL Neutrophils % 72 % Lymphocytes % 17 % Monocytes % 8 % Eosinophils % 0 % Basophils % 1 % Neutrophils # 4.6 (1.3-7.7) k/uL Lymphocytes # 1.1 (1.0-4.8) k/uL Monocytes # 0.5 (0-1.0) k/uL Eosinophils # 0.0 (0-0.7) k/uL Basophils # 0.0 (0-0.2) k/uL Macrocytosis Slight PT (9.0-12.0) sec INR (<1.2) APTT (22.0-30.0) sec Sodium 143 (137-145) mmol/L Potassium 4.3 (3.5-5.1) mmol/L Chloride 110 H (98-107) mmol/L Carbon Dioxide 19 L (22-30) mmol/L Anion Gap 14 mmol/L BUN 18 (9-20) mg/dL Creatinine 1.81 H (0.66-1.25) mg/dL Est GFR (CKD-EPI)AfAm 50 (>60 ml/min/1.73 sqM) Est GFR (CKD-EPI)NonAf 43 (>60 ml/min/1.73 sqM) Glucose 88 (74-99) mg/dL Calcium 9.3 (8.4-10.2) mg/dL Total Bilirubin 1.2 (0.2-1.3) mg/dL AST 115 H (17-59) U/L ALT 123 H (21-72) U/L Alkaline Phosphatase 114 (38-126) U/L Ammonia (<30) umol/L Total Creatine Kinase 475 H (55-170) U/L CK-MB (CK-2) 5.4 H (0.0-2.4) ng/mL CK-MB (CK-2) Rel Index 1.1 Troponin I <0.012 (0.000-0.034) ng/mL Total Protein 7.3 (6.3-8.2) g/dL Albumin 4.3 (3.5-5.0) g/dL TSH 5.660 H (0.465-4.680) mIU/L Free T4 0.68 L (0.78-2.19) ng/dL Urine Color Urine Appearance (Clear) Urine pH (5.0-8.0) Ur Specific [place] (1.001-1.035) Urine Protein (Negative) Urine Glucose (UA) (Negative) Urine Ketones (Negative) Urine Blood (Negative) Urine Nitrite (Negative) Urine Bilirubin (Negative) Urine Urobilinogen (<2.0) mg/dL Ur Leukocyte Esterase (Negative) Urine RBC (0-5) /hpf Urine WBC (0-5) /hpf Ur Squamous Epith Cells (0-4) /hpf Hyaline Casts (0-2) /lpf Urine Mucus (None) /hpf Salicylates <1.0 mg/dL Urine Opiates Screen (NotDetected) Ur Oxycodone Screen (NotDetected) Urine Methadone Screen (NotDetected) Ur Propoxyphene Screen (NotDetected) Acetaminophen <10.0 ug/mL Ur Barbiturates Screen (NotDetected) U Tricyclic Antidepress (NotDetected) Ur Phencyclidine Scrn (NotDetected) Ur Amphetamines Screen (NotDetected) U Methamphetamines Scrn (NotDetected) U Benzodiazepines Scrn (NotDetected) Urine Cocaine Screen (NotDetected) U Marijuana (THC) Screen (NotDetected) 06/18/18 06/18/18 06/18/18 Range/Units 13:10 13:10 15:25 WBC (3.8-10.6) k/uL RBC (4.30-5.90) m/uL Hgb (13.0-17.5) gm/dL Hct (39.0-53.0) % MCV (80.0-100.0) fL MCH (25.0-35.0) pg MCHC (31.0-37.0) g/dL RDW (11.5-15.5) % Plt Count (150-450) k/uL Neutrophils % % Lymphocytes % % Monocytes % % Eosinophils % % Basophils % % Neutrophils # (1.3-7.7) k/uL Lymphocytes # (1.0-4.8) k/uL Monocytes # (0-1.0) k/uL Eosinophils # (0-0.7) k/uL Basophils # (0-0.2) k/uL Macrocytosis PT 9.6 (9.0-12.0) sec INR 0.9 (<1.2) APTT 23.2 (22.0-30.0) sec Sodium (137-145) mmol/L Potassium (3.5-5.1) mmol/L Chloride (98-107) mmol/L Carbon Dioxide (22-30) mmol/L Anion Gap mmol/L BUN (9-20) mg/dL Creatinine (0.66-1.25) mg/dL Est GFR (CKD-EPI)AfAm (>60 ml/min/1.73 sqM) Est GFR (CKD-EPI)NonAf (>60 ml/min/1.73 sqM) Glucose (74-99) mg/dL Calcium (8.4-10.2) mg/dL Total Bilirubin (0.2-1.3) mg/dL AST (17-59) U/L ALT (21-72) U/L Alkaline Phosphatase (38-126) U/L Ammonia 12 (<30) umol/L Total Creatine Kinase (55-170) U/L CK-MB (CK-2) (0.0-2.4) ng/mL CK-MB (CK-2) Rel Index Troponin I (0.000-0.034) ng/mL Total Protein (6.3-8.2) g/dL Albumin (3.5-5.0) g/dL TSH (0.465-4.680) mIU/L Free T4 (0.78-2.19) ng/dL Urine Color Yellow Urine Appearance Cloudy (Clear) Urine pH 5.5 (5.0-8.0) Ur Specific Makanda 1.022 (1.001-1.035) Urine Protein 1+ H (Negative) Urine Glucose (UA) Negative (Negative) Urine Ketones 2+ H (Negative) Urine Blood Negative (Negative) Urine Nitrite Negative (Negative) Urine Bilirubin 1+ H (Negative) Urine Urobilinogen 2.0 (<2.0) mg/dL Ur Leukocyte Esterase Negative (Negative) Urine RBC 1 (0-5) /hpf Urine WBC 3 (0-5) /hpf Ur Squamous Epith Cells <1 (0-4) /hpf Hyaline Casts 15 H (0-2) /lpf Urine Mucus Few H (None) /hpf Salicylates mg/dL Urine Opiates Screen Not Detected (NotDetected) Ur Oxycodone Screen Not Detected (NotDetected) Urine Methadone Screen Not Detected (NotDetected) Ur Propoxyphene Screen Not Detected (NotDetected) Acetaminophen ug/mL Ur Barbiturates Screen Not Detected (NotDetected) U Tricyclic Antidepress Not Detected (NotDetected) Ur Phencyclidine Scrn Not Detected (NotDetected) Ur Amphetamines Screen Not Detected (NotDetected) U Methamphetamines Scrn Not Detected (NotDetected) U Benzodiazepines Scrn Detected H (NotDetected) Urine Cocaine Screen Not Detected (NotDetected) U Marijuana (THC) Screen Not Detected (NotDetected) - EKG Data -: EKG Interpreted by Me EKG Comments: Ventricular rate 69, OH interval 156, QRS 90, QT/QTC 380/47. Normal rhythm. Rightward axis. No concerns for acute ischemia. Disposition Clinical Impression: Altered mental status Disposition: ADMITTED IP TO THIS HOSP Condition: Fair
--- NOTE | 2018-06-18 13:05 | CT ---
EXAMINATION TYPE: CT brain mary quispe con DATE OF EXAM: 06/18/2018 COMPARISON: 03/21/2018 HISTORY: Seizure today, history of seizures. CT DLP: 1210.[address] Brain: Unenhanced CT of the brain was performed. The ventricles, basal cisterns and sulci overlying the cerebral convexities demonstrate a normal appe arance. There is no evidence for intracranial hemorrhage or sulcal effacement. No mass effects are seen. Physiologic calcifications noted of the basal ganglia. If symptoms persist consider MRI. Osseous calvarium is intact. Near-complete opacification right maxillary sinus. IMPRESSION: No acute intracranial process CT Cervical Spine: Unenhanced CT of the cervical spine was performed with bone and soft tissue window settings submitted . Coronal and sagittal reconstruction is obtained. There is normal alignment and prevertebral soft tissues. I do not see evidence for fracture or sublu xation. No significant degenerative changes are present. The lung apices are clear. IMPRESSION: No evidence for acute fracture or subluxation of the cervical spine.
--- NOTE | 2018-06-18 13:06 | XR ---
EXAMINATION TYPE: XR chest 2V DATE OF EXAM: 06/18/2018 COMPARISON: 10/24/2016 HISTORY: Altered mental status. Imbalance. TECHNIQUE: Frontal and lateral views of the chest are obtained. FINDINGS: There is no focal air space opacity, pleural effusion, or pneumothorax seen. The cardiac silhouette size is within normal limits. The osseous structures are intact. Chronic right hemidiaph ragm elevation is noted. The patient is slightly rotated shifting the mediastinum to the right. IMPRESSION: No acute cardiopulmonary process.
[2018-06-18 13:32] LABS: Basophils % (A) 1 %; Eosinophils % (A) 0 %; HCT 42.2 % (39.0-53.0); HGB 13.6 gm/dL (13.0-17.5); Lymphocytes # (A) 1.1 k/uL (1.0-4.8); Lymphocytes % (A) 17 %; MCH 32.4 pg (25.0-35.0); MCHC 32.2 g/dL (31.0-37.0); MCV 100.6 fL (80.0-100.0); Macrocytosis Slight; Mean Platelet Volume 6.8; Monocytes # (A) 0.5 k/uL (0-1.0); Monocytes % (A) 8 %; Neutrophils # (A) 4.6 k/uL (1.3-7.7); Neutrophils % (A) 72 %; Platelet Count 189 k/uL (150-450); RBC 4.19 m/uL (4.30-5.90); RDW 14.9 % (11.5-15.5); WBC 6.4 k/uL (3.8-10.6)
[2018-06-18 13:41] LABS: INR 0.9 (<1.2); Partial Thromboplastin Time 23.2 sec (22.0-30.0); Prothrombin Time 9.6 sec (9.0-12.0)
[2018-06-18 13:44] LABS: ALT 123 U/L (21-72); AST 115 U/L (17-59); Acetaminophen <10.0 ug/mL; Albumin 4.3 g/dL (3.5-5.0); Alkaline Phosphatase 114 U/L (38-126); Anion Gap 14 mmol/L; Blood Urea Nitrogen 18 mg/dL (9-20); Calcium 9.3 mg/dL (8.4-10.2); Carbon Dioxide 19 mmol/L (22-30); Chloride 110 mmol/L (98-107); Glucose 88 mg/dL (74-99); Potassium 4.3 mmol/L (3.5-5.1); Salicylate <1.0 mg/dL; Sodium 143 mmol/L (137-145); Total Bilirubin 1.2 mg/dL (0.2-1.3); Total Protein 7.3 g/dL (6.3-8.2)
[2018-06-18 13:52] LABS: Creatine Kinase 475 U/L (55-170)
[2018-06-18 14:05] LABS: Creatine Kinase MB 5.4 ng/mL (0.0-2.4); Troponin I <0.012 ng/mL (0.000-0.034)
[2018-06-18] MEDS ORDERED: THIAMINE 100 MG/ML 2 ML VIAL IVP STA ×2 (15:16→15:41)
[2018-06-18] MEDS ORDERED: THIAMINE 100 MG/ML 2 ML VIAL IM STA (15:29)
[2018-06-18] MEDS ORDERED: LORazepam 2 MG/ML INJ IV PRN ×2 (15:29)
[2018-06-18] MEDS ORDERED: SODIUM CHLORIDE 0.9% 1,000 ML IV SCH (15:30)
[2018-06-18 15:34] LABS: T4, Free (Free Thyroxine) 0.68 ng/dL (0.78-2.19)
[2018-06-18] MEDS ORDERED: ACETAMINOPHEN TAB 325 MG TAB PO PRN (15:37)
[2018-06-18] MEDS ORDERED: NALOXONE 0.4 MG/ML 1 ML VIAL IV PRN (15:37)
[2018-06-18 15:49] LABS: Appearance,Urine Cloudy (Clear); Bilirubin,Urine 1+ (Negative); Blood,Urine Negative (Negative); Color,Urine Yellow; Glucose,Urine (UA) Negative (Negative); Hyaline Casts,Urine 15 /lpf (0-2); Ketones,Urine 2+ (Negative); Leukocyte Esterase,Urine Negative (Negative); Mucus,Urine Few /hpf; Nitrite,Urine Negative (Negative); PH, Urine 5.5 (5.0-8.0); Protein,Urine 1+ (Negative); RBC,Urine 1 /hpf (0-5); Specific Gravity,Urine 1.022 (1.001-1.035); Squamous Epithelial Cell,Urine <1 /hpf (0-4)
[2018-06-18 15:50] LABS: Amphetamine Screen,Urine Not Detected (NotDetected); Barbiturate Screen,Urine Not Detected (NotDetected); Benzodiazepines Screen,Urine Detected (NotDetected); Cocaine Screen,Urine Not Detected (NotDetected); Methadone Screen, Urine Not Detected (NotDetected); Opiate Screen,Urine Not Detected (NotDetected); Oxycodone Screen, Urine Not Detected (NotDetected); Phencyclidine Screen,Urine Not Detected (NotDetected); Tricyclic Antidepressant,Urine Not Detected (NotDetected); Urn Cannabinoid Scrn Not Detected (NotDetected)
[2018-06-18] MEDS: SODIUM CHLORIDE 0.9% 1,000 ML IV SCH (15:50)
[2018-06-18 17:33] VITALS: BMI 19.8
--- NOTE | 2018-06-18 17:48 | P.CNNES ---
History of Present Illness Consult date: 06/18/18 Reason for Consult: Patient admitted with altered mental status and confusion. History of Present Illness: This patient is a 48-year-old right-handed white male was brought into the emergency room at [facility] today for evaluation of altered mental status. Patient's history was obtained from his mother who is at bedside today. Apparently for the last few months he has been showing increased altered mental status. In the last 2 days however he became more and more confused at home and was not behaving properly according to his mother. According to the patient he was feeling confused and disoriented. He does have a history of alcohol abuse and apparently was drinking to 24 ounces of beer on a regular basis. He was seen in the emergency room today for further evaluation of his altered mental status. He was sent for a computed tomography scan of the brain and CT of the cervical spine. Both of the studies came back negative for any acute findings. He was started on a CIWA protocol and admitted to the hospital. Apparently he has a history of seizure disorder dating back to March of last year. He was initially treated for this with anticonvulsant medication Keppra. He developed side effects and this was discontinued. More recently he has been taking Vimpat 200 mg twice a day. According to the patient he did not take his Vimpat medication for the last 2 days at home. We have recommended he should be restarted on Vimpat for seizure prophylaxis. The patient apparently stopped taking his Vimpat for 2 days prior to his admission. He is not a very good historian however his mother mentions that he was very confused in the last 2 days as compared to the past month. We have recommended he be restarted on his Vimpat today to enter milligrams by mouth twice a day. The patient is much more alert at bedside and his neurological assessment was completed. He has no focal motor deficit. When questioned about his discontinuation of the seizure medicine he is not able to explain why he stopped taking it a few days ago. Apparently he did not have any side effects to the medication. He has been apparently drinking alcohol on a regular basis. This was a reason to begin him on a CIWA protocol for possible alcohol withdrawal syndrome. Clinically he does not appear to show any signs of DTs at this time. His clinical history would be consistent with a acute metabolic encephalopathy possibly secondary to underlying sepsis. We have recommended a complete septic workup with the patient including a urine analysis. We did review the results of his computed tomography scan of the brain and cervical spine with him in detail. There is no acute findings on both of these studies. We have recommended close monitoring of the patient during this admission. We will check a Vimpat blood level after he is restarted on the medication today or tomorrow. Wounds overall prognosis at this time remains guarded. Neurology is now been consulted for further evaluation and recommendations. Review of Systems Constitutional: Denies chills, Denies fever Eyes: denies blurred vision, denies pain Ears, nose, mouth and throat: Denies headache, Denies sore throat Cardiovascular: Denies chest pain, Denies shortness of breath Respiratory: Denies cough Gastrointestinal: Denies abdominal pain, Denies diarrhea, Denies nausea, Denies vomiting Musculoskeletal: Denies myalgias Integumentary: Denies pruritus, Denies rash Neurological: Denies numbness, Denies weakness Psychiatric: Denies anxiety, Denies depression Endocrine: Denies fatigue, Denies weight change Past Medical History Past Medical History: Chest Pain / Angina, CVA/TIA, Seizure Disorder, Thyroid Disorder Additional Past Medical History / Comment(s): States TIA from xrays- no deficits , v-tach, 2 seizures in 03/2016 - then 1 at home and 2 in ER on 03/20/18, gout. History of Any Multi-Drug Resistant Organisms: None Reported Past Surgical History: Cardiac Ablation, Heart Catheterization Additional Past Surgical History / Comment(s): Tilt table test, stress test 2017 , heart cath 2017. Past Anesthesia/Blood Transfusion Reactions: No Reported Reaction Additional Past Anesthesia/Blood Transfusion Reaction / Comment(s): Never had general anesthesia/transfusions. Smoking Status: Never smoker - Past Family History Mother Family Medical History: No Reported History Father Additional Family Medical History / Comment(s): BREATHING PROBLEMS Medications and Allergies Home Medications Medication Instructions Recorded Confirmed Type Metoprolol Succinate (ER) [Toprol 25 mg PO QAM 09/14/16 06/18/18 History XL] clonazePAM [KlonoPIN] 0.5 mg PO QID PRN 09/14/16 06/18/18 History Aspirin [Adult Low Dose Aspirin EC] 81 mg PO DAILY 02/22/17 06/18/18 History Lisinopril [Zestril] 2.5 mg PO HS 02/22/17 06/18/18 History Allopurinol [Zyloprim] 100 mg PO DAILY 03/20/18 06/18/18 History FLUoxetine HCL [PROzac] 40 mg PO DAILY 03/20/18 06/18/18 History Levothyroxine Sodium [Synthroid] 50 mcg PO DAILY 03/20/18 06/18/18 History Atorvastatin [Lipitor] 20 mg PO HS 06/18/18 06/18/18 History Lacosamide [Vimpat] 200 mg PO BID 06/18/18 06/18/18 History Meclizine [Antivert] 12.5 mg PO TID 06/18/18 06/18/18 History Allergies Allergy/AdvReac Type Severity Reaction Status Date / Time amoxicillin Allergy Rash/Hives Verified 06/18/18 12:20 Sulfa (Sulfonamide Allergy Rash/Hives Verified 06/18/18 12:20 Antibiotics) Physical Examination - Vital Signs Vital Signs: Vital Signs Temp Pulse Pulse Resp BP BP Pulse Ox 06/18/18 17:00 96.7 F L 85 18 136/77 97 06/18/18 16:34 90 16 156/93 95 06/18/18 11:49 98.2 F 98 18 143/94 100 Intake and Output 06/18/18 06/18/18 06/18/18 06:59 14:59 22:59 Other: Weight 57.606 kg 57.6 kg - Constitutional General appearance: average body habitus, cooperative - EENT EENT: PERRL, mucous membranes moist - Respiratory Respiratory: lungs clear, normal breath sounds - Cardiovascular Cardiovascular: regular rate, normal S1, normal S2 Extremities: no peripheral edema bilaterally - Gastrointestinal Gastrointestinal: normoactive bowel sounds - Integumentary Integumentary: normal - Neurologic Cranial nerve examination: PERRL, EOMI, VFF, V1/V2/V3 grossly intact, face symmetric, intact shoulder shrug, intact gag reflex, intact corneal reflex, normal palatal elevation Speech examination: intact Sensorimotor examination: intact Motor examination - right side: 4/5: biceps, triceps, wrist flexion, wrist extension, surgical elastic knitter hand frame, hip flexors, knee extensors, dorsiflexion, toe extension (EHL) , plantarflexion Motor examination - left side: 4/5: biceps, triceps, wrist flexion, wrist extension, surgical elastic knitter hand frame, hip flexors, knee extensors, dorsiflexion, toe extension (EHL) , plantarflexion Detailed sensory examination: intact Reflex and gait examination: intact Reflexes: 1+: ankle, bicep, knee, tricep - Musculoskeletal Musculoskeletal: no pain - Psychiatric Psychiatric: mood/affect appropriate, cooperative Results - Laboratory Findings CBC and BMP: 06/18/18 13:10 06/18/18 13:10 Abnormal Lab Findings: Abnormal Labs 06/18/18 06/18/18 06/18/18 13:10 13:10 13:10 RBC 4.19 L MCV 100.6 H Chloride 110 H Carbon Dioxide 19 L Creatinine 1.81 H AST 115 H ALT 123 H Total Creatine Kinase 475 H CK-MB (CK-2) 5.4 H TSH 5.660 H Free T4 0.68 L Urine Protein Urine Ketones Urine Bilirubin Hyaline Casts Urine Mucus U Benzodiazepines Scrn 06/18/18 15:25 RBC MCV Chloride Carbon Dioxide Creatinine AST ALT Total Creatine Kinase CK-MB (CK-2) TSH Free T4 Urine Protein 1+ H Urine Ketones 2+ H Urine Bilirubin 1+ H Hyaline Casts 15 H Urine Mucus Few H U Benzodiazepines Scrn Detected H Assessment and Plan (1) Acute metabolic encephalopathy Current Visit: Yes Status: Acute Code(s): G93.41 - METABOLIC ENCEPHALOPATHY SNOMED Code(s): 90840300 (2) Seizure disorder Current Visit: Yes Status: Acute Code(s): G40.909 - EPILEPSY, UNSP, NOT INTRACTABLE, WITHOUT STATUS EPILEPTICUS SNOMED Code(s): 623740126 (3) Alcohol abuse Current Visit: Yes Status: Acute Code(s): F10.10 - ALCOHOL ABUSE, UNCOMPLICATED SNOMED Code(s): 78983939 (4) History of TIA (transient ischemic attack) and stroke Current Visit: No Status: Acute Code(s): Z86.73 - PRSNL HX OF TIA (TIA), AND CEREB INFRC W/O RESID DEFICITS SNOMED Code(s): 371134902 Plan: This patient is a 48-year-old male who was admitted to hospital with altered mental status and increased confusion over the last 2 days at home. History was obtained from the patient as well as his mother was at bedside. Apparently he has been much more confused at home in the last 2 days. He lives at home with his parents. He was apparently unable to perform his normal activities of daily living at home due to increased confusion. Has a history of underlying seizure disorder in the past. He has currently been treated with Vimpat. Apparently he stopped taking his Vimpat a few days ago. We have restarted the Vimpat today for ongoing seizure prophylaxis. He was brought into the emergency room and underwent a computed tomography scan of the brain and cervical spine the results of which are noted above. Both studies were negative for any acute findings. Patient was started on a CIWA protocol as he has a history of alcohol abuse in the past. His clinical history is more consistent with an acute metabolic encephalopathy and we would recommend to rule out any intercurrent infection or sepsis for this patient. We reviewed the results of his CAT scan today with the patient in detail. He has no focal motor deficit on examination at this time. Patient will be restarted on his Vimpat then we will plan to get the anticonvulsant blood level for him and the next day or two. We will continue close neurological follow-up for the patient during this admission. Patient to be restarted on his Klonopin to avoid any risk of withdrawal syndrome as well. His overall prognosis at this time remains guarded. Time with Patient: Greater than 30
[2018-06-18] MEDS: THIAMINE 100 MG TAB PO SCH (18:09)
[2018-06-18] MEDS: LACOSAMIDE 50 MG TABLET PO SCH (20:32)
[2018-06-18] MEDS: LISINOPRIL 2.5 MG TAB PO SCH (20:32)
[2018-06-18] MEDS: clonazePAM 0.5 MG TAB PO PRN (20:32)
[2018-06-18] MEDS: MECLIZINE 12.5 MG TAB PO SCH (20:32)
[2018-06-18] MEDS ORDERED: ATORVASTATIN 20 MG TAB PO SCH (21:00)
[2018-06-19] MEDS: SODIUM CHLORIDE 0.9% 1,000 ML IV SCH ×2 (06:34→15:18)
[2018-06-19] MEDS: LEVOTHYROXINE 50 MCG TAB PO SCH (06:34)
[2018-06-19] MEDS: ASPIRIN 81 MG PO SCH (07:30)
[2018-06-19] MEDS: METOPROLOL SUCCINATE (ER) 25 MG TAB.ER.24H PO SCH (07:30)
[2018-06-19] MEDS: THIAMINE 100 MG TAB PO SCH ×2 (07:30→15:18)
[2018-06-19] MEDS: FLUoxetine HCL 20 MG CAP PO SCH (07:30)
[2018-06-19] MEDS: ALLOPURINOL 100 MG TAB PO SCH (07:30)
[2018-06-19] MEDS: MECLIZINE 12.5 MG TAB PO SCH ×3 (07:31→20:16)
[2018-06-19] MEDS: LACOSAMIDE 50 MG TABLET PO SCH ×2 (07:31→20:12)
[2018-06-19 11:13] LABS: Basophils % (A) 1 %; Eosinophils # (A) 0.1 k/uL (0-0.7); Eosinophils % (A) 1 %; HCT 36.6 % (39.0-53.0); HGB 11.9 gm/dL (13.0-17.5); Lymphocytes # (A) 0.9 k/uL (1.0-4.8); Lymphocytes % (A) 15 %; MCH 33.1 pg (25.0-35.0); MCHC 32.5 g/dL (31.0-37.0); MCV 101.6 fL (80.0-100.0); Macrocytosis Slight; Mean Platelet Volume 6.6; Monocytes # (A) 0.3 k/uL (0-1.0); Monocytes % (A) 5 %; Neutrophils # (A) 4.5 k/uL (1.3-7.7); Neutrophils % (A) 76 %; Platelet Count 178 k/uL (150-450); RDW 15.4 % (11.5-15.5); WBC 5.9 k/uL (3.8-10.6)
[2018-06-19 11:18] LABS: ALT 95 U/L (21-72); AST 89 U/L (17-59); Albumin 3.1 g/dL (3.5-5.0); Alkaline Phosphatase 100 U/L (38-126); Anion Gap 8 mmol/L; Calcium 8.1 mg/dL (8.4-10.2); Carbon Dioxide 21 mmol/L (22-30); Chloride 111 mmol/L (98-107); Glucose 65 mg/dL (74-99); Potassium 3.6 mmol/L (3.5-5.1); Sodium 140 mmol/L (137-145); Total Bilirubin 1.3 mg/dL (0.2-1.3); Total Protein 5.7 g/dL (6.3-8.2)
--- NOTE | 2018-06-19 11:18 | P.HPIM ---
History of Present Illness H&P Date: 06/19/18 This is a 48-year-old male patient who presented with increased confusion for the past 2 days. She has known past medical history of seizure disorder, TIA, cardiac ablation and EtOH. Patient reports that he has not been taking his seizure meds at home. Patient did report he had a fall earlier in the day yesterday but denies any trauma to head or neck. Patient does state he drinks 2 24 ounce beers occasionally but patient does appear to be a poor historian at this time. Chest x-ray completed showing no acute cardiopulmonary process. CT of head and cervical spine completed showing no evidence for acute fracture or subluxation of the cervical spine. EKG completed showing normal sinus rhythm. Rightward axis. Neurology services have been consulted. This time patient denies any chest pain or shortness of breath. Patient denies nausea vomiting or diarrhea. Patient denies any urinary burning or frequency. Review of Systems please refer to HPI otherwise unremarkable Past Medical History Past Medical History: Chest Pain / Angina, CVA/TIA, Seizure Disorder, Thyroid Disorder Additional Past Medical History / Comment(s): States TIA from xrays- no deficits , v-tach, 2 seizures in 03/2016 - then 1 at home and 2 in ER on 03/20/18, gout. History of Any Multi-Drug Resistant Organisms: None Reported Past Surgical History: Cardiac Ablation, Heart Catheterization Additional Past Surgical History / Comment(s): Tilt table test, stress test 2017 , heart cath 2017. Past Anesthesia/Blood Transfusion Reactions: No Reported Reaction Additional Past Anesthesia/Blood Transfusion Reaction / Comment(s): Never had general anesthesia/transfusions. Past Psychological History: Anxiety, Depression, Panic Disorder Smoking Status: Never smoker Past Alcohol Use History: Occasional Past Drug Use History: None Reported - Past Family History Mother History Unknown: Yes Family Medical History: No Reported History Additional Family Medical History / Comment(s): MS Father History Unknown: Yes Additional Family Medical History / Comment(s): BREATHING PROBLEMS Medications and Allergies Home Medications Medication Instructions Recorded Confirmed Type Metoprolol Succinate (ER) [Toprol 25 mg PO QAM 09/14/16 06/18/18 History XL] clonazePAM [KlonoPIN] 0.5 mg PO QID PRN 09/14/16 06/18/18 History Aspirin [Adult Low Dose Aspirin EC] 81 mg PO DAILY 02/22/17 06/18/18 History Lisinopril [Zestril] 2.5 mg PO HS 02/22/17 06/18/18 History Allopurinol [Zyloprim] 100 mg PO DAILY 03/20/18 06/18/18 History FLUoxetine HCL [PROzac] 40 mg PO DAILY 03/20/18 06/18/18 History Levothyroxine Sodium [Synthroid] 50 mcg PO DAILY 03/20/18 06/18/18 History Atorvastatin [Lipitor] 20 mg PO HS 06/18/18 06/18/18 History Lacosamide [Vimpat] 200 mg PO BID 06/18/18 06/18/18 History Meclizine [Antivert] 12.5 mg PO TID 06/18/18 06/18/18 History Allergies Allergy/AdvReac Type Severity Reaction Status Date / Time amoxicillin Allergy Rash/Hives Verified 06/18/18 12:20 Sulfa (Sulfonamide Allergy Rash/Hives Verified 06/18/18 12:20 Antibiotics) Physical Exam Vitals: Vital Signs Temp Pulse Pulse Resp BP BP Pulse Ox 06/19/18 07:11 97.0 F L 73 16 148/92 98 06/18/18 22:54 97.0 F L 85 18 153/83 97 06/18/18 17:00 96.7 F L 85 18 136/77 97 06/18/18 16:34 90 16 156/93 95 06/18/18 11:49 98.2 F 98 18 143/94 100 Intake and Output 06/18/18 06/19/18 06/19/18 22:59 06:59 14:59 Other: Voiding Method Toilet Urinal # Voids 3 4 Weight 57.6 kg Head normocephalic Neck supple Lungs clear to auscultation bilaterally no wheezing or crackles Heart regular rate and rhythm S1-S2, no rub or gallop Abdomen is soft nontender nondistended positive bowel sounds no hepatosplenomegaly Extremities no edema Neuro alert and orientated to 2. Patient appears forgetful and a poor historian Results CBC & Chem 7: 06/18/18 13:10 06/18/18 13:10 Labs: Abnormal Lab Results - Last 24 Hours (Table) 06/18/18 06/18/18 06/18/18 Range/Units 13:10 13:10 13:10 RBC 4.19 L (4.30-5.90) m/uL MCV 100.6 H (80.0-100.0) fL Chloride 110 H (98-107) mmol/L Carbon Dioxide 19 L (22-30) mmol/L Creatinine 1.81 H (0.66-1.25) mg/dL AST 115 H (17-59) U/L ALT 123 H (21-72) U/L Total Creatine Kinase 475 H (55-170) U/L CK-MB (CK-2) 5.4 H (0.0-2.4) ng/mL TSH 5.660 H (0.465-4.680) mIU/L Free T4 0.68 L (0.78-2.19) ng/dL Urine Protein (Negative) Urine Ketones (Negative) Urine Bilirubin (Negative) Hyaline Casts (0-2) /lpf Urine Mucus (None) /hpf U Benzodiazepines Scrn (NotDetected) 06/18/18 Range/Units 15:25 RBC (4.30-5.90) m/uL MCV (80.0-100.0) fL Chloride (98-107) mmol/L Carbon Dioxide (22-30) mmol/L Creatinine (0.66-1.25) mg/dL AST (17-59) U/L ALT (21-72) U/L Total Creatine Kinase (55-170) U/L CK-MB (CK-2) (0.0-2.4) ng/mL TSH (0.465-4.680) mIU/L Free T4 (0.78-2.19) ng/dL Urine Protein 1+ H (Negative) Urine Ketones 2+ H (Negative) Urine Bilirubin 1+ H (Negative) Hyaline Casts 15 H (0-2) /lpf Urine Mucus Few H (None) /hpf U Benzodiazepines Scrn Detected H (NotDetected) Microbiology - Last 24 Hours (Table) 06/18/18 15:25 Urine Culture - Preliminary Urine,Voided Thrombosis Risk Factor Assmnt - Choose All That Apply Any of the Below Risk Factors Present?: Yes Each Factor Represents 1 point: Age 41-60 years Other Risk Factors: No Thrombosis Risk Factor Assessment Total Risk Factor Score: 1 Thrombosis Risk Factor Assessment Level: Low Risk Assessment and Plan Assessment: 1. Increased confusion possibly due to acute metabolic encephalopathy. Head CT completed showing no evidence for acute fracture or subluxation of the cervical spine. Chest x-ray completed showing no acute cardiopulmonary process. Blood and urine culture ordered. Neurology services following 2. History of seizures. Home seizure meds resumed. Neurology services are following 3. EtOH. CIWA protocal ordered 4. Acute kidney injury. Creatinine 1.81. Repeat labs ordered will continue to monitor closely 5. Hypothyroidism. TSH level 5.660. patient currently on Synthroid 50 mcg 6. History of cardiac ablation 7. History of CVA and TIA 8. History of anxiety depression panic disorder 9. Elevated liver enzymes. AST 115 ALT 123. Patient previously seen by GI services in March. At that time they called acute transaminitis with with possible alcohol hepatitis with underlying hepatic steatosis per ultrasound DVT prophylaxis Lovenox. GI prophylaxis Protonix Time with Patient: Greater than 30 (Greater than 60% of the total time spent in counseling and coordination of care. I performed an examination of the patient and discussed their management with the Nurse Practitioner. I have reviewed the Nurse Practitioner's notes and agree with the documented findings and plan of care)
[2018-06-19 11:35] LABS: Blood Urea Nitrogen 10 mg/dL (9-20)
[2018-06-19] MEDS: LORazepam 2 MG/ML INJ IV PRN (13:23)
[2018-06-19] MEDS: clonazePAM 0.5 MG TAB PO PRN ×2 (15:18→20:12)
--- NOTE | 2018-06-19 19:50 | P.PN ---
Subjective Progress Note Date: 06/19/18 This patient is a 48-year-old male who was admitted to hospital for increased confusion and known history of seizure disorder. Patient also has a history of alcohol use and has been drinking large amounts of beer recently. He is a poor historian but apparently lives at home with his mother. Mother was interviewed yesterday and gave further update and his confusional state. Today seems to be making some improvement and is currently on a [facility] protocol for alcohol withdrawal. He underwent computed tomography scan of the brain and cervical spine both of which were negative. Seems to be making slow progress today and denies any new symptoms of confusion or delirium. According to the nursing staff he is been showing some behavioral changes today. We will obtain a routine EEG tomorrow for further evaluation. He is to continue on Vimpat at his current dose. He has had no witnessed seizures. Patient seems to do much better after being restarted on Klonopin and likely had some degree of withdrawal syndrome. We will continue close neurological follow-up for the patient during this admission. Objective - Vital Signs Vital signs: Vital Signs Temp 97.4 F L 06/19/18 15:28 Pulse 70 06/19/18 15:28 Resp 16 06/19/18 15:28 BP 133/83 06/19/18 15:28 Pulse Ox 99 06/19/18 15:28 Intake & Output 06/19/18 06/19/18 06/20/18 06:59 18:59 06:59 Intake Total 1200 Balance 1200 Intake: Oral 1200 Other: Voiding Method Toilet Urinal # Voids 4 1 - Exam Physical examination: PHYSICAL EXAMINATION: Patient is resting comfortably in bed. VITAL SIGNS: Blood pressure is [133/83]. Heart rate is [70]. Respiration is [16] . Temperature is [97.4]. HEENT: Head is atraumatic, neck is supple, there were no carotid bruits. CHEST: Lungs are clear to auscultation and percussion. CARDIAC: S1, S2 normal rate and rhythm. There is no murmur. ABDOMEN: Soft and nontender. Bowel sounds are present. EXTREMITIES: There is no pedal edema. Peripheral pulses are present. Neurological examination: Patient has a nonfocal neurological exam today. Patient appears to be awake and alert and appropriate to answer questions. He does not show any signs of acute delirium at this time. - Labs CBC & Chem 7: 06/19/18 10:42 06/19/18 10:42 Labs: Abnormal Lab Results - Last 24 Hours (Table) 06/19/18 06/19/18 Range/Units 10:42 10:42 RBC 3.60 L (4.30-5.90) m/uL Hgb 11.9 L (13.0-17.5) gm/dL Hct 36.6 L (39.0-53.0) % MCV 101.6 H (80.0-100.0) fL Lymphocytes # 0.9 L (1.0-4.8) k/uL Chloride 111 H (98-107) mmol/L Carbon Dioxide 21 L (22-30) mmol/L Glucose 65 L (74-99) mg/dL Calcium 8.1 L (8.4-10.2) mg/dL AST 89 H (17-59) U/L ALT 95 H (21-72) U/L Total Protein 5.7 L (6.3-8.2) g/dL Albumin 3.1 L (3.5-5.0) g/dL Microbiology - Last 24 Hours (Table) 06/18/18 15:25 Urine Culture - Preliminary Urine,Voided Assessment and Plan (1) Acute metabolic encephalopathy Current Visit: Yes Status: Acute Code(s): G93.41 - METABOLIC ENCEPHALOPATHY SNOMED Code(s): 56067411 (2) Seizure disorder Current Visit: Yes Status: Acute Code(s): G40.909 - EPILEPSY, UNSP, NOT INTRACTABLE, WITHOUT STATUS EPILEPTICUS SNOMED Code(s): 389269945 (3) Alcohol abuse Current Visit: Yes Status: Acute Code(s): F10.10 - ALCOHOL ABUSE, UNCOMPLICATED SNOMED Code(s): 10186314 (4) History of TIA (transient ischemic attack) and stroke Current Visit: No Status: Acute Code(s): Z86.73 - PRSNL HX OF TIA (TIA), AND CEREB INFRC W/O RESID DEFICITS SNOMED Code(s): 458753030 Plan: This patient was admitted with acute metabolic encephalopathy and altered mental status. Apparently he had run out of Klonopin at home and possibly had some increased confusion due to withdrawal syndrome. He is also history of alcohol abuse and is currently on a CIWA protocol. Computed tomography scan of the brain and cervical spine were both negative. He seems to be more awake and alert today and appropriate. He has been restarted on Klonopin. We will obtain a routine EEG tomorrow for further evaluation to rule out any possible seizure disorder. He is to continue on his current dose of Vimpat for further seizure prophylaxis. He has been showing some behavioral changes as per the nursing staff. We will continue to follow his progress closely as he does seem to be appropriate when questioned directly today on examination. Would continue to monitor for any signs of early delirium tremens. His overall prognosis at this time remains guarded.
[2018-06-19] MEDS: LISINOPRIL 2.5 MG TAB PO SCH (20:12)
[2018-06-20] MEDS: clonazePAM 0.5 MG TAB PO PRN ×4 (01:32→18:45)
[2018-06-20] MEDS: LEVOTHYROXINE 50 MCG TAB PO SCH (06:25)
[2018-06-20] MEDS: METOPROLOL SUCCINATE (ER) 25 MG TAB.ER.24H PO SCH (07:33)
[2018-06-20] MEDS: ENOXAPARIN 40 MG/0.4 ML SYRINGE SQ SCH (07:33)
[2018-06-20] MEDS: LACOSAMIDE 50 MG TABLET PO SCH ×2 (07:33→20:47)
[2018-06-20] MEDS: FLUoxetine HCL 20 MG CAP PO SCH (07:33)
[2018-06-20] MEDS: ALLOPURINOL 100 MG TAB PO SCH (07:34)
[2018-06-20] MEDS: FAMOTIDINE 20 MG TAB PO SCH (07:34)
[2018-06-20] MEDS: ASPIRIN 81 MG PO SCH (07:34)
[2018-06-20] MEDS: MECLIZINE 12.5 MG TAB PO SCH ×3 (07:35→20:47)
[2018-06-20] MEDS: SODIUM CHLORIDE 0.9% 1,000 ML IV SCH ×2 (07:48→20:48)
[2018-06-20 10:00] LABS: Basophils % (A) 1 %; Eosinophils # (A) 0.1 k/uL (0-0.7); Eosinophils % (A) 2 %; HCT 36.1 % (39.0-53.0); HGB 11.5 gm/dL (13.0-17.5); Lymphocytes # (A) 0.6 k/uL (1.0-4.8); Lymphocytes % (A) 18 %; MCH 32.1 pg (25.0-35.0); MCV 100.3 fL (80.0-100.0); Macrocytosis Slight; Mean Platelet Volume 6.5; Monocytes # (A) 0.2 k/uL (0-1.0); Monocytes % (A) 6 %; Neutrophils # (A) 2.2 k/uL (1.3-7.7); Neutrophils % (A) 72 %; Platelet Count 153 k/uL (150-450); RDW 14.9 % (11.5-15.5)
[2018-06-20 10:08] LABS: ALT 80 U/L (21-72); AST 72 U/L (17-59); Alkaline Phosphatase 98 U/L (38-126); Anion Gap 3 mmol/L; Blood Urea Nitrogen 6 mg/dL (9-20); Calcium 8.3 mg/dL (8.4-10.2); Carbon Dioxide 25 mmol/L (22-30); Chloride 111 mmol/L (98-107); Glucose 98 mg/dL (74-99); Potassium 3.7 mmol/L (3.5-5.1); Sodium 139 mmol/L (137-145); Total Bilirubin 1.1 mg/dL (0.2-1.3); Total Protein 5.5 g/dL (6.3-8.2)
[2018-06-20] MEDS: THIAMINE 100 MG TAB PO SCH ×2 (11:02→16:42)
--- NOTE | 2018-06-20 12:34 | P.PN ---
Subjective Progress Note Date: 06/20/18 This is a 48-year-old male patient who presented with increased confusion for the past 2 days. She has known past medical history of seizure disorder, TIA, cardiac ablation and EtOH. Patient reports that he has not been taking his seizure meds at home. Patient did report he had a fall earlier in the day yesterday but denies any trauma to head or neck. Patient does state he drinks 2 24 ounce beers occasionally but patient does appear to be a poor historian at this time. Chest x-ray completed showing no acute cardiopulmonary process. CT of head and cervical spine completed showing no evidence for acute fracture or subluxation of the cervical spine. EKG completed showing normal sinus rhythm. Rightward axis. Neurology services have been consulted. This time patient denies any chest pain or shortness of breath. Patient denies nausea vomiting or diarrhea. Patient denies any urinary burning or frequency. On 06/20/2018 patient is more alert and orientated today. At this time patient denies chest pain or shortness of breath. Patient patient denies any urinary burning or frequency. Patient denies any nausea vomiting or diarrhea. Discussed with GI services. Elevated liver enzymes likely due to Lipitor. EEG has been ordered per neuro services Objective - Vital Signs Vital signs: Vital Signs Temp 98.5 F 06/20/18 07:00 Pulse 87 06/20/18 07:00 Resp 16 06/20/18 08:35 BP 121/75 06/20/18 07:00 Pulse Ox 95 06/20/18 07:00 Intake & Output 06/19/18 06/20/18 06/20/18 18:59 06:59 18:59 Intake Total 1200 850 Balance 1200 850 Intake: Oral 1200 850 Other: Voiding Method Toilet Toilet Toilet Urinal Urinal # Voids 1 3 # Bowel Movements 0 - Exam Head normocephalic Neck supple Lungs clear to auscultation bilaterally no wheezing or crackles Heart regular rate and rhythm S1-S2, no rub or gallop Abdomen is soft nontender nondistended positive bowel sounds no hepatosplenomegaly Extremities no edema Neuro alert and orientated to 3 - Labs CBC & Chem 7: 06/20/18 09:19 06/20/18 09:19 Labs: Abnormal Lab Results - Last 24 Hours (Table) 06/20/18 06/20/18 Range/Units 09:19 09:19 WBC 3.0 L (3.8-10.6) k/uL RBC 3.60 L (4.30-5.90) m/uL Hgb 11.5 L (13.0-17.5) gm/dL Hct 36.1 L (39.0-53.0) % MCV 100.3 H (80.0-100.0) fL Lymphocytes # 0.6 L (1.0-4.8) k/uL Chloride 111 H (98-107) mmol/L BUN 6 L (9-20) mg/dL Calcium 8.3 L (8.4-10.2) mg/dL AST 72 H (17-59) U/L ALT 80 H (21-72) U/L Total Protein 5.5 L (6.3-8.2) g/dL Albumin 3.0 L (3.5-5.0) g/dL Microbiology - Last 24 Hours (Table) 06/18/18 15:25 Urine Culture - Final Urine,Voided Assessment and Plan Assessment: 1. Increased confusion possibly due to acute metabolic encephalopathy. Head CT completed showing no evidence for acute fracture or subluxation of the cervical spine. Chest x-ray completed showing no acute cardiopulmonary process. Blood and urine culture ordered. Per neurology services EEG has been ordered. Confusion is improving. Per neurology could be due to patient withdrawing from Klonopin. Patient back on all home meds 2. History of seizures. Home seizure meds resumed. Neurology services are following 3. EtOH. CIWA protocal ordered 4. Acute kidney injury. Creatinine 1.81. Repeat labs ordered will continue to monitor closely 5. Hypothyroidism. TSH level 5.660. patient currently on Synthroid 50 mcg 6. History of cardiac ablation 7. History of CVA and TIA 8. History of anxiety depression panic disorder 9. Elevated liver enzymes. AST 115 ALT 123. Patient previously seen by GI services in March. At that time they called acute transaminitis with with possible alcohol hepatitis with underlying hepatic steatosis per ultrasound. Discussed case with GI services. Liver enzymes are improving likely due to Lipitor. Lipitor DC'd at this time . DVT prophylaxis Lovenox. GI prophylaxis Protonix
--- NOTE | 2018-06-20 13:27 | P.CONS ---
History of Present Illness - Reason for Consult Consult date: 06/20/18 Transaminitis Requesting physician: Aries Ma - Chief Complaint Mental status changes - History of Present Illness 48-year-old gentleman admitted with acute mental status changes history of remote EtOH abuse, seizure disorder. Consultation requested for transaminitis. Patient states last month he was prescribed Lipitor. Vehemently denies alcohol consumption. Last alcoholic drink greater than 2 months. Admission total bilirubin 1.2. AST 115. ALT 123. AP 114. Ammonia 12. Transaminases improving daily presently AST 72. ALT 80. T bili 1.1. AP 98. Patient has not received Lipitor since admission. Denies abdominal pain. No fever chills hematemesis hematochezia melena. Serum alcohol level less than 10. Abdominal ultrasound March 2018 CBD within normal limits. Hepatic steatosis no evidence of cholelithiasis. Transaminases March 2018 were elevated at that time patient states he was drinking alcohol. AST 156-268. ALT 118-188. TB and AP unremarkable. Review of Systems Constitutional: Denies fever, chills, sweats, weight gain, or loss. Admitted with mental status changes. HEENT: Negative for migraines, blurred vision or loss, earaches, drainage, tinnitus, oral mucosal lesions, dysphagia, or odynophagia. Cardiac: Negative for chest pain, arrhythmias, or palpitation. Respiratory: Negative for shortness of breath, hemoptysis, cough, or sputum production. Gastrointestinal: See HPI for pertinent findings. Genitourinary: Negative for hematuria, urgency, frequency, polyuria, dysuria, or penile discharge. Musculoskeletal: Negative for muscle aches, swelling, arthritis, and arthralgias. Neurologic: Negative for stroke or TIA. Endocrine: Negative for thyroid problems. Skin: Negative for rash or itching. Psychiatric: Negative history for depression and anxiety Past Medical History Past Medical History: Chest Pain / Angina, CVA/TIA, Seizure Disorder, Thyroid Disorder Additional Past Medical History / Comment(s): States TIA from xrays- no deficits , v-tach, 2 seizures in 03/2016 - then 1 at home and 2 in ER on 03/20/18, gout. History of Any Multi-Drug Resistant Organisms: None Reported Past Surgical History: Cardiac Ablation, Heart Catheterization Additional Past Surgical History / Comment(s): Tilt table test, stress test 2017 , heart cath 2017. Past Anesthesia/Blood Transfusion Reactions: No Reported Reaction Additional Past Anesthesia/Blood Transfusion Reaction / Comm: Never had general anesthesia/transfusions. Past Psychological History: Anxiety, Depression, Panic Disorder Smoking Status: Never smoker Past Alcohol Use History: Occasional Past Drug Use History: None Reported - Past Family History Mother History Unknown: Yes Family Medical History: No Reported History Additional Family Medical History / Comment(s): MS Father History Unknown: Yes Additional Family Medical History / Comment(s): BREATHING PROBLEMS Medications and Allergies Home Medications Medication Instructions Recorded Confirmed Type Metoprolol Succinate (ER) [Toprol 25 mg PO QAM 09/14/16 06/18/18 History XL] clonazePAM [KlonoPIN] 0.5 mg PO QID PRN 09/14/16 06/18/18 History Aspirin [Adult Low Dose Aspirin EC] 81 mg PO DAILY 02/22/17 06/18/18 History Lisinopril [Zestril] 2.5 mg PO HS 02/22/17 06/18/18 History Allopurinol [Zyloprim] 100 mg PO DAILY 03/20/18 06/18/18 History FLUoxetine HCL [PROzac] 40 mg PO DAILY 03/20/18 06/18/18 History Levothyroxine Sodium [Synthroid] 50 mcg PO DAILY 03/20/18 06/18/18 History Atorvastatin [Lipitor] 20 mg PO HS 06/18/18 06/18/18 History Lacosamide [Vimpat] 200 mg PO BID 06/18/18 06/18/18 History Meclizine [Antivert] 12.5 mg PO TID 06/18/18 06/18/18 History Allergies Allergy/AdvReac Type Severity Reaction Status Date / Time amoxicillin Allergy Rash/Hives Verified 06/18/18 12:20 Sulfa (Sulfonamide Allergy Rash/Hives Verified 06/18/18 12:20 Antibiotics) Physical Exam Vitals: Vital Signs Temp Pulse Resp BP Pulse Ox 06/20/18 08:35 16 06/20/18 07:00 98.5 F 87 18 121/75 95 06/19/18 23:00 98.1 F 63 18 158/96 99 06/19/18 15:28 97.4 F L 70 16 133/83 99 Intake and Output 06/19/18 06/20/18 06/20/18 22:59 06:59 14:59 Intake Total 1450 600 Balance 1450 600 Intake: Oral 1450 600 Other: Voiding Method Toilet Toilet Toilet Urinal Urinal # Voids 2 3 # Bowel Movements 0 0 General appearance: The patient is alert, oriented, in no acute distress. HET: Head is normocephalic and atraumatic. Pupils are equal and reactive. Oropharynx is clear without lesions. Neck: Supple without lymphadenopathy. Trachea midline. Heart: S1 S2. Regular rate and rhythm. Lungs: No crackles or wheezes are heard. Abdomen: Soft, nontender, nondistended with bowel sounds. No peritoneal signs. No palpable organomegaly or masses. Extremities: Normal skin color and turgor. No cyanosis, rash, ulceration, clubbing, or edema. Radial and pedal pulses are 2/4 bilaterally. Neurological: No focal deficits. Strength and sensation are grossly intact. Results CBC & Chem 7: 06/20/18 09:19 06/20/18 09:19 Labs: Abnormal Lab Results - Last 24 Hours (Table) 06/20/18 06/20/18 Range/Units 09:19 09:19 WBC 3.0 L (3.8-10.6) k/uL RBC 3.60 L (4.30-5.90) m/uL Hgb 11.5 L (13.0-17.5) gm/dL Hct 36.1 L (39.0-53.0) % MCV 100.3 H (80.0-100.0) fL Lymphocytes # 0.6 L (1.0-4.8) k/uL Chloride 111 H (98-107) mmol/L BUN 6 L (9-20) mg/dL Calcium 8.3 L (8.4-10.2) mg/dL AST 72 H (17-59) U/L ALT 80 H (21-72) U/L Total Protein 5.5 L (6.3-8.2) g/dL Albumin 3.0 L (3.5-5.0) g/dL Microbiology - Last 24 Hours (Table) 06/18/18 15:25 Urine Culture - Final Urine,Voided Assessment and Plan (1) Transaminitis Narrative/Plan: 48-year-old gentleman with a history of remote EtOH abuse not drinking alcohol greater than 1 month prior to admission admitted with altered mental status metabolic encephalopathy with transaminitis recently prescribed statin over the last month with evidence of transaminitis. Suspect drug-induced liver injury from statin. Transaminases improving daily without statin. Current Visit: Yes Status: Acute Code(s): R74.0 - NONSPEC ELEV OF LEVELS OF TRANSAMNS & LACTIC ACID DEHYDRGNSE SNOMED Code(s): 067066118 (2) History of ETOH abuse Current Visit: Yes Status: Acute Code(s): Z87.898 - PERSONAL HISTORY OF OTHER SPECIFIED CONDITIONS SNOMED Code(s): 583904922 (3) Acute metabolic encephalopathy Current Visit: Yes Status: Acute Code(s): G93.41 - METABOLIC ENCEPHALOPATHY SNOMED Code(s): 24812701 (4) Altered mental status Current Visit: Yes Status: Acute Code(s): R41.82 - ALTERED MENTAL STATUS, UNSPECIFIED SNOMED Code(s): 877679117 (5) Seizure disorder Current Visit: Yes Status: Acute Code(s): G40.909 - EPILEPSY, UNSP, NOT INTRACTABLE, WITHOUT STATUS EPILEPTICUS SNOMED Code(s): 070302139 (6) Hepatic steatosis Narrative/Plan: Hepatic steatosis per ultrasound underlying alcohol liver disease cannot be entirely excluded. Current Visit: Yes Status: Acute Code(s): K76.0 - FATTY (CHANGE OF) LIVER, NOT ELSEWHERE CLASSIFIED SNOMED Code(s): 456881108 Plan: 1. Continue to hold statin transaminases are improving. Continue to abstain from alcohol. No further workup at this time. We'll be available for questions or concerns. Repeat CMP in outpatient setting and 7-10 days follow with PCP is advised. Thank you for this kind referral and the opportunity to participate in the care of your patient. This consultation was discussed with Dr. Reynolds. The impression and plan of care have been directed as dictated.
[2018-06-20] MEDS ORDERED: HALOPERIDOL LACTATE 5 MG/ML 1 ML VIAL IM PRN (16:37)
[2018-06-20] MEDS: LISINOPRIL 2.5 MG TAB PO SCH (20:47)
[2018-06-20] MEDS: LORazepam 2 MG/ML INJ IV PRN (20:58)
--- NOTE | 2018-06-20 21:43 | EEG ---
ELECTROENCEPHALOGRAM REPORT DATE OF EE06/20/2018 ELECTROENCEPHALOGRAPHIC EXAMINATION REPORT: INDICATION FOR EXAMINATION: This patient is a 48-year-old male, admitted with acute confusional state. Patient has history of alcohol abuse and seizure disorder. AGE: [age]. EEG FINDINGS: A routine 21-channel awake digital EEG recording was accomplished utilizing the 10-20 international system with bipolar and referential montages. The background activity in the most alert resting state consists of a low to medium amplitude, fairly well developed and well sustained 7-8 Hz activity over the posterior head regions. This posterior rhythm attenuates to eye opening. There is a small amount of low amplitude 18-20 Hz beta activity seen maximally over the anterior head regions. Muscle and movement artifact was observed on a few occasions during the tracing. Hyperventilation was not performed. Photic stimulation at flash frequencies of 2-30 Hz produced a good symmetrical occipital driving response. No epileptiform discharges were seen. IMPRESSION: This EEG is within normal limits for the patient's age. The EEG failed to reveal any focal, lateralized, or epileptiform abnormalities. Clinical correlation is recommended. MMODL / IJN: [id number] /
--- NOTE | 2018-06-20 23:29 | P.PN ---
Subjective Progress Note Date: 06/20/18 This patient is a 48-year-old male who was admitted to hospital for increased confusion and known history of seizure disorder. Patient also has a history of alcohol use and has been drinking large amounts of beer recently. He is a poor historian but apparently lives at home with his mother. Mother was interviewed yesterday and gave further update and his confusional state. Today seems to be making some improvement and is currently on a CIWA protocol for alcohol withdrawal. He underwent computed tomography scan of the brain and cervical spine both of which were negative. Seems to be making slow progress today and denies any new symptoms of confusion or delirium. According to the nursing staff he is been showing some behavioral changes today. We will obtain a routine EEG today for further evaluation. He is to continue on Vimpat at his current dose. He has had no witnessed seizures. Patient seems to do much better after being restarted on Klonopin and likely had some degree of withdrawal syndrome. We did review the EEG results today and it is normal for his age. There is no evidence of any epileptiform discharges. He was seen by gastroenterology and his statin is to be on hold and is to be discontinued. His liver enzymes are slowly improving as well. We reviewed the results of the EEG today with the patient. We will continue close monitoring of his overall mental status during this admission. He is to continue on CIWA protocol. We will continue close neurological follow-up for the patient during this admission. Objective - Vital Signs Vital signs: Vital Signs Temp 99.1 F 06/20/18 16:06 Pulse 61 06/20/18 16:06 Resp 16 06/20/18 16:06 BP 146/90 06/20/18 16:06 Pulse Ox 97 06/20/18 16:06 Intake & Output 06/20/18 06/20/18 06/21/18 06:59 18:59 06:59 Intake Total 850 1200 Balance 850 1200 Intake: Oral 850 1200 Other: Voiding Method Toilet Toilet Urinal # Voids 3 2 # Bowel Movements 0 - Exam Physical examination: PHYSICAL EXAMINATION: Patient is resting comfortably in bed. VITAL SIGNS: Blood pressure is [146/80]. Heart rate is [61]. Respiration is [16] . Temperature is [99.1]. HEENT: Head is atraumatic, neck is supple, there were no carotid bruits. CHEST: Lungs are clear to auscultation and percussion. CARDIAC: S1, S2 normal rate and rhythm. There is no murmur. ABDOMEN: Soft and nontender. Bowel sounds are present. EXTREMITIES: There is no pedal edema. Peripheral pulses are present. Neurological examination: Patient has a nonfocal neurological exam today. Patient appears to be awake and alert and appropriate to answer questions. He does not show any signs of acute delirium at this time. - Labs CBC & Chem 7: 06/20/18 09:19 06/20/18 09:19 Labs: Abnormal Lab Results - Last 24 Hours (Table) 06/20/18 06/20/18 Range/Units 09:19 09:19 WBC 3.0 L (3.8-10.6) k/uL RBC 3.60 L (4.30-5.90) m/uL Hgb 11.5 L (13.0-17.5) gm/dL Hct 36.1 L (39.0-53.0) % MCV 100.3 H (80.0-100.0) fL Lymphocytes # 0.6 L (1.0-4.8) k/uL Chloride 111 H (98-107) mmol/L BUN 6 L (9-20) mg/dL Calcium 8.3 L (8.4-10.2) mg/dL AST 72 H (17-59) U/L ALT 80 H (21-72) U/L Total Protein 5.5 L (6.3-8.2) g/dL Albumin 3.0 L (3.5-5.0) g/dL Microbiology - Last 24 Hours (Table) 06/19/18 17:54 Blood Culture - Preliminary Blood No Growth after 24 hours 06/18/18 15:25 Urine Culture - Final Urine,Voided Assessment and Plan (1) Acute metabolic encephalopathy Current Visit: Yes Status: Acute Code(s): G93.41 - METABOLIC ENCEPHALOPATHY SNOMED Code(s): 20629006 (2) Seizure disorder Current Visit: Yes Status: Acute Code(s): G40.909 - EPILEPSY, UNSP, NOT INTRACTABLE, WITHOUT STATUS EPILEPTICUS SNOMED Code(s): 200624852 (3) Alcohol abuse Current Visit: Yes Status: Acute Code(s): F10.10 - ALCOHOL ABUSE, UNCOMPLICATED SNOMED Code(s): 63197330 (4) History of TIA (transient ischemic attack) and stroke Current Visit: No Status: Acute Code(s): Z86.73 - PRSNL HX OF TIA (TIA), AND CEREB INFRC W/O RESID DEFICITS SNOMED Code(s): 396738816 Plan: This patient was admitted with acute metabolic encephalopathy and altered mental status. Apparently he had run out of Klonopin at home and possibly had some increased confusion due to withdrawal syndrome. He is also history of alcohol abuse and is currently on a CIWA protocol. Computed tomography scan of the brain and cervical spine were both negative. He seems to be more awake and alert today and appropriate. He has been restarted on Klonopin. The patient underwent routine EEG today for further evaluation of altered mental status. His EEG came back normal for his age with no evidence of epileptiform discharges. He is to continue on his current dose of Vimpat for further seizure prophylaxis. He has been showing some behavioral changes as per the nursing staff. We will continue to follow his progress closely as he does seem to be appropriate when questioned directly today on examination. Would continue to monitor for any signs of early delirium tremens. His liver enzymes are slowly improving and he has been seen by gastroenterology. His statin drug has been discontinued. Anticipate patient may be ready for discharge in the next 24 hours. His overall prognosis at this time remains guarded.
[2018-06-21] MEDS: LEVOTHYROXINE 50 MCG TAB PO SCH (04:52)
[2018-06-21] MEDS: clonazePAM 0.5 MG TAB PO PRN ×2 (04:52→12:41)
[2018-06-21 07:41] VITALS: TEMP 98.2
[2018-06-21] MEDS: ENOXAPARIN 40 MG/0.4 ML SYRINGE SQ SCH (08:25)
[2018-06-21] MEDS: ALLOPURINOL 100 MG TAB PO SCH (08:26)
[2018-06-21] MEDS: ASPIRIN 81 MG PO SCH (08:26)
[2018-06-21] MEDS: MECLIZINE 12.5 MG TAB PO SCH ×2 (08:26→15:41)
[2018-06-21] MEDS: LACOSAMIDE 50 MG TABLET PO SCH (08:26)
[2018-06-21] MEDS: METOPROLOL SUCCINATE (ER) 25 MG TAB.ER.24H PO SCH (08:26)
[2018-06-21] MEDS: FAMOTIDINE 20 MG TAB PO SCH (08:26)
[2018-06-21] MEDS: SODIUM CHLORIDE 0.9% 1,000 ML IV SCH (08:26)
[2018-06-21] MEDS: THIAMINE 100 MG TAB PO SCH ×2 (08:26→15:41)
[2018-06-21] MEDS: FLUoxetine HCL 20 MG CAP PO SCH (08:26)
[2018-06-21 09:49] LABS: Basophils % (A) 1 %; Eosinophils # (A) 0.1 k/uL (0-0.7); Eosinophils % (A) 3 %; HCT 36.7 % (39.0-53.0); HGB 11.8 gm/dL (13.0-17.5); Lymphocytes # (A) 0.8 k/uL (1.0-4.8); Lymphocytes % (A) 30 %; MCH 32.2 pg (25.0-35.0); MCHC 32.3 g/dL (31.0-37.0); MCV 99.7 fL (80.0-100.0); Macrocytosis Slight; Mean Platelet Volume 6.5; Monocytes # (A) 0.2 k/uL (0-1.0); Monocytes % (A) 8 %; Neutrophils # (A) 1.4 k/uL (1.3-7.7); Neutrophils % (A) 55 %; Platelet Count 142 k/uL (150-450); RBC 3.68 m/uL (4.30-5.90); RDW 14.9 % (11.5-15.5); WBC 2.6 k/uL (3.8-10.6)
[2018-06-21 09:57] LABS: ALT 67 U/L (21-72); AST 68 U/L (17-59); Albumin 2.5 g/dL (3.5-5.0); Alkaline Phosphatase 81 U/L (38-126); Anion Gap 3 mmol/L; Blood Urea Nitrogen 6 mg/dL (9-20); Calcium 7.7 mg/dL (8.4-10.2); Carbon Dioxide 26 mmol/L (22-30); Chloride 111 mmol/L (98-107); Glucose 80 mg/dL (74-99); Potassium 3.8 mmol/L (3.5-5.1); Sodium 140 mmol/L (137-145); Total Bilirubin 0.8 mg/dL (0.2-1.3)
--- NOTE | 2018-06-21 10:31 | P.PN ---
Subjective Progress Note Date: 06/21/18 This is a 48-year-old male patient who presented with increased confusion for the past 2 days. She has known past medical history of seizure disorder, TIA, cardiac ablation and EtOH. Patient reports that he has not been taking his seizure meds at home. Patient did report he had a fall earlier in the day yesterday but denies any trauma to head or neck. Patient does state he drinks 2 24 ounce beers occasionally but patient does appear to be a poor historian at this time. Chest x-ray completed showing no acute cardiopulmonary process. CT of head and cervical spine completed showing no evidence for acute fracture or subluxation of the cervical spine. EKG completed showing normal sinus rhythm. Rightward axis. Neurology services have been consulted. This time patient denies any chest pain or shortness of breath. Patient denies nausea vomiting or diarrhea. Patient denies any urinary burning or frequency. On 06/20/2018 patient is more alert and orientated today. At this time patient denies chest pain or shortness of breath. Patient patient denies any urinary burning or frequency. Patient denies any nausea vomiting or diarrhea. Discussed with GI services. Elevated liver enzymes likely due to Lipitor. EEG has been ordered per neuro services On 06/21/2018 patient does appear more confused and agitated today. Awaiting psych consult. Haldol has been added per psychiatry. At this time patient denies chest pain or shortness of breath. Patient denies nausea vomiting or diarrhea. Patient denies any urinary burning or frequency Objective - Vital Signs Vital signs: Vital Signs Temp 98.2 F 06/21/18 07:00 Pulse 76 06/21/18 07:00 Resp 18 06/21/18 07:00 BP 165/84 06/21/18 07:00 Pulse Ox 96 06/21/18 07:00 Intake & Output 06/20/18 06/21/18 06/21/18 18:59 06:59 18:59 Intake Total 1200 600 Balance 1200 600 Weight 57.6 kg Intake: Oral 1200 600 Other: Voiding Method Toilet Toilet # Voids 2 2 # Bowel Movements 0 - Exam Head normocephalic Neck supple Lungs clear to auscultation bilaterally no wheezing or crackles Heart regular rate and rhythm S1-S2, no rub or gallop Abdomen is soft nontender nondistended positive bowel sounds no hepatosplenomegaly Extremities no edema Neuro alert and orientated to 2. confused and anxious at times - Labs CBC & Chem 7: 06/21/18 09:12 06/21/18 09:12 Labs: Abnormal Lab Results - Last 24 Hours (Table) 06/21/18 06/21/18 Range/Units 09:12 09:12 WBC 2.6 L (3.8-10.6) k/uL RBC 3.68 L (4.30-5.90) m/uL Hgb 11.8 L (13.0-17.5) gm/dL Hct 36.7 L (39.0-53.0) % Plt Count 142 L (150-450) k/uL Lymphocytes # 0.8 L (1.0-4.8) k/uL Chloride 111 H (98-107) mmol/L BUN 6 L (9-20) mg/dL Calcium 7.7 L (8.4-10.2) mg/dL AST 68 H (17-59) U/L Total Protein 5.0 L (6.3-8.2) g/dL Albumin 2.5 L (3.5-5.0) g/dL Microbiology - Last 24 Hours (Table) 06/19/18 17:54 Blood Culture - Preliminary Blood No Growth after 24 hours Assessment and Plan Assessment: 1. Increased confusion possibly due to acute metabolic encephalopathy. Head CT completed showing no evidence for acute fracture or subluxation of the cervical spine. Chest x-ray completed showing no acute cardiopulmonary process. Blood and urine culture ordered. Per neurology could be due to patient withdrawing from Klonopin. Patient back on all home meds. Awaiting psychiatry consult. Haldol has been added per psychiatry 2. History of seizures. Home seizure meds resumed. Neurology services are following EEG completed and came back normal for patient's age with no evidence of epileptiform discharges 3. EtOH. CIWA protocal ordered 4. Acute kidney injury. Creatinine 1.81. Repeat labs ordered will continue to monitor closely. Creatinine 1.08. Resolved 5. Hypothyroidism. TSH level 5.660. patient currently on Synthroid 50 mcg 6. History of cardiac ablation 7. History of CVA and TIA 8. History of anxiety depression panic disorder 9. Elevated liver enzymes. AST 115 ALT 123. Patient previously seen by GI services in March. At that time they called acute transaminitis with with possible alcohol hepatitis with underlying hepatic steatosis per ultrasound. Discussed case with GI services. Liver enzymes are improving likely due to Lipitor. Lipitor DC'd at this time . DVT prophylaxis Lovenox. GI prophylaxis Protonix Awaiting psych consult I performed an examination of the patient and discussed their management with the Nurse Practitioner. I have reviewed the Nurse Practitioner's notes and agree with the documented findings and plan of care
--- NOTE | 2018-06-21 12:43 | P.CN ---
Psychiatric Consult - . Consult date: 06/21/18 Consult:: confusion? 06/20/18 15:32 Assessment and Plan Assessment: 48-year-old gentleman admitted with acute mental status changes history of remote EtOH abuse, seizure disorder. Consultation requested for transaminitis. Patient states last month he was prescribed Lipitor. Vehemently denies alcohol consumption. Last alcoholic drink greater than 2 months. Admission total bilirubin 1.2. AST 115. ALT 123. AP 114. Ammonia 12. Transaminases improving daily presently AST 72. ALT 80. T bili 1.1. AP 98. Patient has not received Lipitor since admission. Denies abdominal pain. No fever chills hematemesis hematochezia melena. Serum alcohol level less than 10. Abdominal ultrasound March 2018 CBD within normal limits. Hepatic steatosis no evidence of cholelithiasis. Past Medical History Past Medical History: Chest Pain / Angina, CVA/TIA, Seizure Disorder, Thyroid Disorder Additional Past Medical History / Comment(s): States TIA from xrays- no deficits , v-tach, 2 seizures in 03/2016 - then 1 at home and 2 in ER on 03/20/18, gout. History of Any Multi-Drug Resistant Organisms: None Reported Past Surgical History: Cardiac Ablation, Heart Catheterization Additional Past Surgical History / Comment(s): Tilt table test, stress test 2017 , heart cath 2016. Past Anesthesia/Blood Transfusion Reactions: No Reported Reaction Additional Past Anesthesia/Blood Transfusion Reaction / Comm: Never had general anesthesia/transfusions. Past Psychological History: Anxiety, Depression, Panic Disorder Smoking Status: Never smoker Past Alcohol Use History: Occasional Past Drug Use History: None Reported - Past Family History Mother History Unknown: Yes Family Medical History: No Reported History Additional Family Medical History / Comment(s): MS Father History Unknown: Yes Additional Family Medical History / Comment(s): BREATHING PROBLEMS Medications and Allergies Home Medications Medication Instructions Recorded Confirmed Type Metoprolol Succinate (ER) [Toprol 25 mg PO QAM 09/14/16 06/18/18 History XL] clonazePAM [KlonoPIN] 0.5 mg PO QID PRN 09/14/16 06/18/18 History Aspirin [Adult Low Dose Aspirin EC] 81 mg PO DAILY 02/22/17 06/18/18 History Lisinopril [Zestril] 2.5 mg PO HS 02/22/17 06/18/18 History Allopurinol [Zyloprim] 100 mg PO DAILY 03/20/18 06/18/18 History FLUoxetine HCL [PROzac] 40 mg PO DAILY 03/20/18 06/18/18 History Levothyroxine Sodium [Synthroid] 50 mcg PO DAILY 03/20/18 06/18/18 History Atorvastatin [Lipitor] 20 mg PO HS 06/18/18 06/18/18 History Lacosamide [Vimpat] 200 mg PO BID 06/18/18 06/18/18 History Meclizine [Antivert] 12.5 mg PO TID 06/18/18 06/18/18 History CBC & Chem 7: 06/20/18 09:19 06/20/18 09:19 Labs: Abnormal Lab Results - Last 24 Hours (Table) 06/20/18 06/20/18 Range/Units 09:19 09:19 WBC 3.0 L (3.8-10.6) k/uL RBC 3.60 L (4.30-5.90) m/uL Hgb 11.5 L (13.0-17.5) gm/dL Hct 36.1 L (39.0-53.0) % MCV 100.3 H (80.0-100.0) fL Lymphocytes # 0.6 L (1.0-4.8) k/uL Chloride 111 H (98-107) mmol/L BUN 6 L (9-20) mg/dL Calcium 8.3 L (8.4-10.2) mg/dL AST 72 H (17-59) U/L ALT 80 H (21-72) U/L Total Protein 5.5 L (6.3-8.2) g/dL Albumin 3.0 L (3.5-5.0) g/dL Microbiology - Last 24 Hours (Table) 06/18/18 15:25 Urine Culture - Final Urine,Voided Assessment and Plan (1) Transaminitis Narrative/Plan: 48-year-old gentleman with a history of remote EtOH abuse not drinking alcohol greater than 1 month prior to admission admitted with altered mental status metabolic encephalopathy with transaminitis recently prescribed statin over the last month with evidence of transaminitis. Suspect drug-induced liver injury from statin. Transaminases improving daily without statin. Current Visit: Yes Status: Acute Code(s): R74.0 - NONSPEC ELEV OF LEVELS OF TRANSAMNS & LACTIC ACID DEHYDRGNSE SNOMED Code(s): 607787079 (2) History of ETOH abuse Current Visit: Yes Status: Acute Code(s): Z87.898 - PERSONAL HISTORY OF OTHER SPECIFIED CONDITIONS SNOMED Code(s): 882182614 (3) Acute metabolic encephalopathy Current Visit: Yes Status: Acute Code(s): G93.41 - METABOLIC ENCEPHALOPATHY SNOMED Code(s): 01998514 (4) Altered mental status Current Visit: Yes Status: Acute Code(s): R41.82 - ALTERED MENTAL STATUS, UNSPECIFIED SNOMED Code(s): 286117862 (5) Seizure disorder Current Visit: Yes Status: Acute Code(s): G40.909 - EPILEPSY, UNSP, NOT INTRACTABLE, WITHOUT STATUS EPILEPTICUS SNOMED Code(s): 607777834 (6) Hepatic steatosis Narrative/Plan: Hepatic steatosis per ultrasound underlying alcohol liver disease cannot be entirely excluded. Mental Status Examination - this is a 48-year-old male seen lying in bed asleep and was easily awakened. He admits she's been confused for the last couple days and was not able to state today's date. General Appearance: [ casual, bizarre, appears stated age Speech/Language: [spontaneous soft] Attitude/Behavior: [cooperative Mood: [euthymic Affect: [full range Orientation: [Not time time, person, place and confused about situation] Thought Content: [wnl Risk Factors: [Denies suicidal (ideations, plan), and/or Homicidal (ideations, plan), other] Perception: [wnl, denies hallucinations (auditory, visual, tactile), other] Thought Processes: [goal-oriented Concentration/Attention Span: [wnl] [Per observation and interview with the patient] Recent Memory: [impaired] [ 1 out of 3 in 3 minutes] Remote Memory: [wnl] [past events, as related history] Intelligence: [average] [based on history, based on vocabulary, syntax, grammar , and content] Judgement: [good] [per patient's behavior/history of present illness] Insight: [good] [understanding severity of illness/history of present illness Psychiatric impression:delirium which appears to be slowly resolving Psychiatric recommendation:terrell 1 mg im prn bid Thank you for the consult Ariel Dave D.O. PhD] Time with Patient: Less than 30
--- NOTE | 2018-06-21 15:37 | P.DS ---
Providers Date of admission: 06/18/18 15:29 Expected date of discharge: 06/21/18 Attending physician: Aries Ma Consults: 06/18/18 15:37 Consult Physician Stat Consulting Provider: Kalyn Duff Consult Reason/Comments: Altered mental status, seizure disorder Do you want consulting provider notified?: Yes 06/20/18 13:25 Consult Physician Routine Consulting Provider: Ariel Dave Consult Reason/Comments: confusion Do you want consulting provider notified?: Yes Primary care physician: Aries Ma [facility] Course: Discharge diagnosis 1. Increased confusion possibly due to acute metabolic encephalopathy. Head CT completed showing no evidence for acute fracture or subluxation of the cervical spine. Chest x-ray completed showing no acute cardiopulmonary process. Blood and urine culture ordered. Per neurology could be due to patient withdrawing from Klonopin. Patient back on all home meds. Patient has been seen by psychiatry. Patient may be DC'd. No changes to home medications. 2. History of seizures. Home seizure meds resumed. Neurology services are following EEG completed and came back normal for patient's age with no evidence of epileptiform discharges 3. EtOH. CIWA protocal ordered 4. Acute kidney injury. Creatinine 1.81. Repeat labs ordered will continue to monitor closely. Creatinine 1.08. Resolved 5. Hypothyroidism. TSH level 5.660. patient currently on Synthroid 50 mcg 6. History of cardiac ablation 7. History of CVA and TIA 8. History of anxiety depression panic disorder 9. Elevated liver enzymes. AST 115 ALT 123. Patient previously seen by GI services in March. At that time they called acute transaminitis with with possible alcohol hepatitis with underlying hepatic steatosis per ultrasound. Discussed case with GI services. Liver enzymes are improving likely due to Lipitor. Lipitor DC'd at this time Hospital course This is a 48-year-old male patient who presented with increased confusion for the past 2 days. She has known past medical history of seizure disorder, TIA, cardiac ablation and EtOH. Patient reports that he has not been taking his seizure meds at home. Patient did report he had a fall earlier in the day yesterday but denies any trauma to head or neck. Patient does state he drinks 2 24 ounce beers occasionally but patient does appear to be a poor historian at this time. Chest x-ray completed showing no acute cardiopulmonary process. CT of head and cervical spine completed showing no evidence for acute fracture or subluxation of the cervical spine. EKG completed showing normal sinus rhythm. Rightward axis. Neurology services have been consulted. This time patient denies any chest pain or shortness of breath. Patient denies nausea vomiting or diarrhea. Patient denies any urinary burning or frequency. On 06/20/2018 patient is more alert and orientated today. At this time patient denies chest pain or shortness of breath. Patient patient denies any urinary burning or frequency. Patient denies any nausea vomiting or diarrhea. Discussed with GI services. Elevated liver enzymes likely due to Lipitor. EEG has been ordered per neuro services On 06/21/2018 patient is currently alert and oriented 3. Patient states he feels much improved and ready to go home. Per psychiatry patient may be DC'd home without any change to medications. Lipitor be DC'd upon discharge. Patient advised to follow-up closely with his PCP and consulting providers. Patient denies chest pain or shortness of breath. Patient denies nausea vomiting or diarrhea. Patient denies any urinary burning or frequency. I performed an examination of the patient and discussed their management with the Nurse Practitioner. I have reviewed the Nurse Practitioner's notes and agree with the documented findings and plan of care Patient Condition at Discharge: Stable Plan - Discharge Summary New Discharge Prescriptions: No Action clonazePAM [KlonoPIN] 0.5 mg PO QID PRN PRN Reason: Anxiety Metoprolol Succinate (ER) [Toprol XL] 25 mg PO QAM Lisinopril [Zestril] 2.5 mg PO HS Aspirin [Adult Low Dose Aspirin EC] 81 mg PO DAILY Levothyroxine Sodium [Synthroid] 50 mcg PO DAILY Allopurinol [Zyloprim] 100 mg PO DAILY FLUoxetine HCL [PROzac] 40 mg PO DAILY Meclizine [Antivert] 12.5 mg PO TID Lacosamide [Vimpat] 200 mg PO BID Atorvastatin [Lipitor] 20 mg PO HS Discharge Medication List Metoprolol Succinate (ER) [Toprol XL] 25 mg PO QAM 09/14/16 [History] clonazePAM [KlonoPIN] 0.5 mg PO QID PRN 09/14/16 [History] Aspirin [Adult Low Dose Aspirin EC] 81 mg PO DAILY 02/22/17 [History] Lisinopril [Zestril] 2.5 mg PO HS 02/22/17 [History] Allopurinol [Zyloprim] 100 mg PO DAILY 03/20/18 [History] FLUoxetine HCL [PROzac] 40 mg PO DAILY 03/20/18 [History] Levothyroxine Sodium [Synthroid] 50 mcg PO DAILY 03/20/18 [History] Atorvastatin [Lipitor] 20 mg PO HS 06/18/18 [History] Lacosamide [Vimpat] 200 mg PO BID 06/18/18 [History] Meclizine [Antivert] 12.5 mg PO TID 06/18/18 [History] Follow up Appointment(s)/Referral(s): Aries Ma MD [Primary Care Provider] - 1-2 days
[2018-06-21 16:13] VITALS: BP 120/77; PULSE 77; RESP 16
== END 2018-06-21 17:00 | disposition home or self-care (01) | DRG 896 ==
LOC: EC 11:38 → 4MS4W 15:29 → OBSVTOIN 06-21 15:19
PROVIDERS: ADMIT Internal Medicine; ATTEND Internal Medicine
DX: F13.239 Sedative, hypnotic or anxiolytic dependence with withdrawal, unspecified (principal); G92 Toxic encephalopathy; N17.9 Acute kidney failure, unspecified; T42.4X5A Adverse effect of benzodiazepines, initial encounter; E03.9 Hypothyroidism, unspecified; F10.10 Alcohol abuse, uncomplicated; F32.9 Major depressive disorder, single episode, unspecified; F41.0 Panic disorder [episodic paroxysmal anxiety]; G40.909 Epilepsy, unspecified, not intractable, without status epilepticus; K76.0 Fatty (change of) liver, not elsewhere classified; W19.XXXA Unspecified fall, initial encounter; Z79.82 Long term (current) use of aspirin; Z79.890 Hormone replacement therapy; Z79.899 Other long term (current) drug therapy; Z86.73 Personal history of transient ischemic attack (TIA), and cerebral infarction without residual deficits; Z88.1 Allergy status to other antibiotic agents; Z88.2 Allergy status to sulfonamides; T42.6X6A Underdosing of other antiepileptic and sedative-hypnotic drugs, initial encounter; Z91.128 Patient's intentional underdosing of medication regimen for other reason
CPT/HCPCS: 36415; 70450; 71046; 72125; 80053; 80306; 80320; 81001; 82140; 82550; 82553; 83520; 84439; 84443; 84484; 85025; 85610; 85730; 87040; 87086; 93005; 95816; 96361; 96374; 99285

== ENCOUNTER 2018-08-20 13:48 | Emergency (ER) | payer OTHER ==
[2018-08-20 14:07] LABS: Glucose,Whole Blood 102 mg/dL (75-99)
[2018-08-20] MEDS ORDERED: SODIUM CHLORIDE 0.9% 500 ML 500 ML IV ONE (14:26)
--- NOTE | 2018-08-20 14:31 | ED ---
General Adult HPI - General Chief complaint: Altered Mental Status Stated complaint: Confused Time Seen by Provider: 08/20/18 14:07 Source: patient, family Mode of arrival: ambulatory Limitations: altered mental status - History of Present Illness Initial comments: Dictation was produced using [employer] dictation software. please excuse any grammatical, word or spelling errors. Chief Complaint: 48-year-old male with S medical history seizure disorder, CVA presents with altered mental status since yesterday. History of Present Illness: Company with his mother. Patient states that he is more confused and agitated starting yesterday. Patient had a similar event that occurred approximately 3 months ago. Patient does have a neurologist Dr. Sow. Patient does take antiseizure medications. Patient wasn't noted to have any seizure-like activity yesterday. Patient has been confused and has been responding inappropriately. When asked what date it is 1989. Patient is unreliable historian at this time. The ROS documented in this emergency department record has been reviewed and confirmed by me. Those systems with pertinent positive or negative responses have been documented in the HPI. All other systems are other negative and/or noncontributory. PHYSICAL EXAM: General Impression: Alert and oriented 103, no acute distress, agitated HEENT: Normocephalic atraumatic, extra-ocular movements intact, pupils equal and reactive to light bilaterally, mucous membranes moist. Cardiovascular: Heart regular rate and rhythm, S1&S2 audible, no murmurs, rubs or gallops Chest: Lungs clear to auscultation bilaterally, no rhonchi, no wheeze, no rales Abdomen: Bowel sounds present, abdomen soft, non-tender, non-distended, no organomegaly Musculoskeletal: Pulses present and equal in all extremities, no peripheral edema Motor: Power 5/5 bilaterally, no focal deficits noted Neurological: Repetitive speech, moves all extremity is grossly, sensation to light touch and painful stimuli is intact of all extremities Skin: Intact with no visualized rashes ED course: 48-year-old male presents with altered mental status since yesterday. Patient has extensive neurologic history. Vital signs upon arrival are within acceptable limits.Laboratory evaluation obtained. CBC unremarkable. Mild megaloblastic anemia with MCV of 100.4. Patient is a regular EtOH drinker. Coag panel is unremarkable. Metabolic panel is unremarkable. Cardiac enzymes negative. Urinalysis negative. Patient does have urine positive for benzodiazepine. Computed tomography scan of the head was obtained showing no acute processes. Chest x-ray unremarkable. Patient was observed in emergency department for several hours with improvement in mentation. Patient feels well and lives nearby. She decision-making was performed patient to be discharge and told to return to the emergency department if he has any worsening symptoms. Chart review was performed and patient was admitted for similar situation recently and was discharge without any further intervention. Patient tolerate by mouth and ambulatory prior to discharge. Patient clear that he should return if there is any worsening symptoms. family and patient is satisfied with disposition. Patient is answering questions appropriately. He is followed commands and cooperative at time of discharge. EKG interpretation: Ventricular rate 65, normal sinus rhythm, CT interval 160, QS 96, QTC 424. No CT prolongation, no QTC prolongation, no ST or T-wave changes noted. Overall, this EKG is unremarkable - Related Data Home Medications Medication Instructions Recorded Confirmed Cholecalciferol (Vitamin D3) 2,000 unit PO DAILY 08/20/18 08/20/18 [Vitamin D3] Levothyroxine Sodium [Synthroid] 75 mcg PO DAILY 08/20/18 08/20/18 Metoprolol Tartrate [Lopressor] 25 mg PO DAILY 08/20/18 08/20/18 Previous Rx's Medication Instructions Recorded Allopurinol [Zyloprim] 100 mg PO DAILY #30 tab 06/21/18 FLUoxetine HCL [PROzac] 40 mg PO DAILY #30 capsule 06/21/18 Lacosamide [Vimpat] 200 mg PO BID 30 Days #60 tablet 06/21/18 Lisinopril [Zestril] 2.5 mg PO HS #30 tab 06/21/18 Meclizine [Antivert] 12.5 mg PO TID #90 tab 06/21/18 clonazePAM [KlonoPIN] 0.5 mg PO QID PRN 3 Days #12 tab 06/21/18 Allergies Allergy/AdvReac Type Severity Reaction Status Date / Time amoxicillin Allergy Rash/Hives Verified 08/20/18 14:37 Sulfa (Sulfonamide Allergy Rash/Hives Verified 08/20/18 14:37 Antibiotics) Review of Systems ROS Statement: Those systems with pertinent positive or pertinent negative responses have been documented in the HPI. ROS Other: All systems not noted in ROS Statement are negative. Past Medical History Past Medical History: Chest Pain / Angina, CVA/TIA, Seizure Disorder, Thyroid Disorder Additional Past Medical History / Comment(s): States TIA from xrays- no deficits , v-tach, 2 seizures in 03/2016 - then 1 at home and 2 in ER on 03/20/18, gout. History of Any Multi-Drug Resistant Organisms: None Reported Past Surgical History: Cardiac Ablation, Heart Catheterization Additional Past Surgical History / Comment(s): Tilt table test, stress test 2017 , heart cath 2017. Past Anesthesia/Blood Transfusion Reactions: No Reported Reaction Additional Past Anesthesia/Blood Transfusion Reaction / Comment(s): Never had general anesthesia/transfusions. Past Psychological History: Anxiety, Depression, Panic Disorder Smoking Status: Never smoker Past Alcohol Use History: Occasional Past Drug Use History: None Reported - Past Family History Mother History Unknown: Yes Family Medical History: No Reported History Additional Family Medical History / Comment(s): MS Father History Unknown: Yes Additional Family Medical History / Comment(s): BREATHING PROBLEMS General Exam Limitations: altered mental status Course Vital Signs 08/20/18 08/20/18 08/20/18 13:53 14:05 14:10 Temperature 98.2 F Pulse Rate 77 65 68 Respiratory 16 Rate Blood Pressure 144/92 135/90 O2 Sat by Pulse 97 Oximetry 08/20/18 08/20/18 08/20/18 14:20 14:30 14:40 Temperature Pulse Rate 66 Respiratory Rate Blood Pressure 130/83 130/83 130/83 O2 Sat by Pulse 95 Oximetry 08/20/18 08/20/18 08/20/18 14:50 15:00 15:10 Temperature Pulse Rate Respiratory Rate Blood Pressure 130/83 130/83 122/77 O2 Sat by Pulse 93 L 94 L 96 Oximetry 08/20/18 08/20/18 08/20/18 15:20 15:30 15:40 Temperature Pulse Rate Respiratory Rate Blood Pressure 122/77 122/77 122/77 O2 Sat by Pulse 95 95 96 Oximetry 08/20/18 08/20/18 15:50 16:00 Temperature Pulse Rate Respiratory Rate Blood Pressure 122/77 122/77 O2 Sat by Pulse 95 Oximetry Medical Decision Making - Lab Data Result diagrams: 08/20/18 14:12 08/20/18 14:12 Lab Results 08/20/18 08/20/1819 Range/Units 14:05 14:12 14:12 WBC 7.6 (3.8-10.6) k/uL RBC 4.30 (4.30-5.90) m/uL Hgb 13.9 (13.0-17.5) gm/dL Hct 43.2 (39.0-53.0) % MCV 100.4 H (80.0-100.0) fL MCH 32.4 (25.0-35.0) pg MCHC 32.2 (31.0-37.0) g/dL RDW 14.3 (11.5-15.5) % Plt Count 206 (150-450) k/uL Neutrophils % 68 % Lymphocytes % 21 % Monocytes % 7 % Eosinophils % 2 % Basophils % 1 % Neutrophils # 5.2 (1.3-7.7) k/uL Lymphocytes # 1.6 (1.0-4.8) k/uL Monocytes # 0.5 (0-1.0) k/uL Eosinophils # 0.2 (0-0.7) k/uL Basophils # 0.0 (0-0.2) k/uL Macrocytosis Slight PT (9.0-12.0) sec INR (<1.2) APTT (22.0-30.0) sec Sodium 142 (137-145) mmol/L Potassium 3.9 (3.5-5.1) mmol/L Chloride 108 H (98-107) mmol/L Carbon Dioxide 26 (22-30) mmol/L Anion Gap 8 mmol/L BUN 19 (9-20) mg/dL Creatinine 0.72 (0.66-1.25) mg/dL Est GFR (CKD-EPI)AfAm >90 (>60 ml/min/1.73 sqM) Est GFR (CKD-EPI)NonAf >90 (>60 ml/min/1.73 sqM) Glucose 105 H (74-99) mg/dL POC Glucose (mg/dL) 102 H (75-99) mg/dL POC Glu [employer] ID Juliana Erickson A Calcium 9.6 (8.4-10.2) mg/dL Total Bilirubin 0.6 (0.2-1.3) mg/dL AST 42 (17-59) U/L ALT 58 (21-72) U/L Alkaline Phosphatase 102 (38-126) U/L Ammonia (<30) umol/L Creatine Kinase 172 H (55-170) U/L Troponin I (0.000-0.034) ng/mL Total Protein 7.4 (6.3-8.2) g/dL Albumin 4.6 (3.5-5.0) g/dL Urine Color Urine Appearance (Clear) Urine pH (5.0-8.0) Ur Specific Elwin (1.001-1.035) Urine Protein (Negative) Urine Glucose (UA) (Negative) Urine Ketones (Negative) Urine Blood (Negative) Urine Nitrite (Negative) Urine Bilirubin (Negative) Urine Urobilinogen (<2.0) mg/dL Ur Leukocyte Esterase (Negative) Urine Opiates Screen (NotDetected) Ur Oxycodone Screen (NotDetected) Urine Methadone Screen (NotDetected) Ur Propoxyphene Screen (NotDetected) Ur Barbiturates Screen (NotDetected) U Tricyclic Antidepress (NotDetected) Ur Phencyclidine Scrn (NotDetected) Ur Amphetamines Screen (NotDetected) U Methamphetamines Scrn (NotDetected) U Benzodiazepines Scrn (NotDetected) Urine Cocaine Screen (NotDetected) U Marijuana (THC) Screen (NotDetected) 08/20/18 08/20/18 08/20/18 Range/Units 14:12 14:12 14:12 WBC (3.8-10.6) k/uL RBC (4.30-5.90) m/uL Hgb (13.0-17.5) gm/dL Hct (39.0-53.0) % MCV (80.0-100.0) fL MCH (25.0-35.0) pg MCHC (31.0-37.0) g/dL RDW (11.5-15.5) % Plt Count (150-450) k/uL Neutrophils % % Lymphocytes % % Monocytes % % Eosinophils % % Basophils % % Neutrophils # (1.3-7.7) k/uL Lymphocytes # (1.0-4.8) k/uL Monocytes # (0-1.0) k/uL Eosinophils # (0-0.7) k/uL Basophils # (0-0.2) k/uL Macrocytosis PT 10.0 (9.0-12.0) sec INR 0.9 (<1.2) APTT 26.9 (22.0-30.0) sec Sodium (137-145) mmol/L Potassium (3.5-5.1) mmol/L Chloride (98-107) mmol/L Carbon Dioxide (22-30) mmol/L Anion Gap mmol/L BUN (9-20) mg/dL Creatinine (0.66-1.25) mg/dL Est GFR (CKD-EPI)AfAm (>60 ml/min/1.73 sqM) Est GFR (CKD-EPI)NonAf (>60 ml/min/1.73 sqM) Glucose (74-99) mg/dL POC Glucose (mg/dL) (75-99) mg/dL POC Glu [employer] ID Calcium (8.4-10.2) mg/dL Total Bilirubin (0.2-1.3) mg/dL AST (17-59) U/L ALT (21-72) U/L Alkaline Phosphatase (38-126) U/L Ammonia 14 (<30) umol/L Creatine Kinase (55-170) U/L Troponin I <0.012 (0.000-0.034) ng/mL Total Protein (6.3-8.2) g/dL Albumin (3.5-5.0) g/dL Urine Color Urine Appearance (Clear) Urine pH (5.0-8.0) Ur Specific Elwin (1.001-1.035) Urine Protein (Negative) Urine Glucose (UA) (Negative) Urine Ketones (Negative) Urine Blood (Negative) Urine Nitrite (Negative) Urine Bilirubin (Negative) Urine Urobilinogen (<2.0) mg/dL Ur Leukocyte Esterase (Negative) Urine Opiates Screen (NotDetected) Ur Oxycodone Screen (NotDetected) Urine Methadone Screen (NotDetected) Ur Propoxyphene Screen (NotDetected) Ur Barbiturates Screen (NotDetected) U Tricyclic Antidepress (NotDetected) Ur Phencyclidine Scrn (NotDetected) Ur Amphetamines Screen (NotDetected) U Methamphetamines Scrn (NotDetected) U Benzodiazepines Scrn (NotDetected) Urine Cocaine Screen (NotDetected) U Marijuana (THC) Screen (NotDetected) 08/20/18 Range/Units 16:11 WBC (3.8-10.6) k/uL RBC (4.30-5.90) m/uL Hgb (13.0-17.5) gm/dL Hct (39.0-53.0) % MCV (80.0-100.0) fL MCH (25.0-35.0) pg MCHC (31.0-37.0) g/dL RDW (11.5-15.5) % Plt Count (150-450) k/uL Neutrophils % % Lymphocytes % % Monocytes % % Eosinophils % % Basophils % % Neutrophils # (1.3-7.7) k/uL Lymphocytes # (1.0-4.8) k/uL Monocytes # (0-1.0) k/uL Eosinophils # (0-0.7) k/uL Basophils # (0-0.2) k/uL Macrocytosis PT (9.0-12.0) sec INR (<1.2) APTT (22.0-30.0) sec Sodium (137-145) mmol/L Potassium (3.5-5.1) mmol/L Chloride (98-107) mmol/L Carbon Dioxide (22-30) mmol/L Anion Gap mmol/L BUN (9-20) mg/dL Creatinine (0.66-1.25) mg/dL Est GFR (CKD-EPI)AfAm (>60 ml/min/1.73 sqM) Est GFR (CKD-EPI)NonAf (>60 ml/min/1.73 sqM) Glucose (74-99) mg/dL POC Glucose (mg/dL) (75-99) mg/dL POC Glu [employer] ID Calcium (8.4-10.2) mg/dL Total Bilirubin (0.2-1.3) mg/dL AST (17-59) U/L ALT (21-72) U/L Alkaline Phosphatase (38-126) U/L Ammonia (<30) umol/L Creatine Kinase (55-170) U/L Troponin I (0.000-0.034) ng/mL Total Protein (6.3-8.2) g/dL Albumin (3.5-5.0) g/dL Urine Color Light Yellow Urine Appearance Clear (Clear) Urine pH 5.5 (5.0-8.0) Ur Specific Elwin 1.011 (1.001-1.035) Urine Protein Negative (Negative) Urine Glucose (UA) Negative (Negative) Urine Ketones Negative (Negative) Urine Blood Negative (Negative) Urine Nitrite Negative (Negative) Urine Bilirubin Negative (Negative) Urine Urobilinogen <2.0 (<2.0) mg/dL Ur Leukocyte Esterase Negative (Negative) Urine Opiates Screen Not Detected (NotDetected) Ur Oxycodone Screen Not Detected (NotDetected) Urine Methadone Screen Not Detected (NotDetected) Ur Propoxyphene Screen Not Detected (NotDetected) Ur Barbiturates Screen Not Detected (NotDetected) U Tricyclic Antidepress Not Detected (NotDetected) Ur Phencyclidine Scrn Not Detected (NotDetected) Ur Amphetamines Screen Not Detected (NotDetected) U Methamphetamines Scrn Not Detected (NotDetected) U Benzodiazepines Scrn Detected H (NotDetected) Urine Cocaine Screen Not Detected (NotDetected) U Marijuana (THC) Screen Not Detected (NotDetected) Disposition Clinical Impression: Confusion Disposition: HOME SELF-CARE Condition: Good Is patient prescribed a controlled substance at d/c from ED?: No Referrals: Aries Ma MD [Primary Care Provider] - 1-2 days Time of Disposition: 17:47
[2018-08-20 14:53] LABS: INR 0.9 (<1.2); Partial Thromboplastin Time 26.9 sec (22.0-30.0)
[2018-08-20 14:54] LABS: ALT 58 U/L (21-72); AST 42 U/L (17-59); Albumin 4.6 g/dL (3.5-5.0); Alkaline Phosphatase 102 U/L (38-126); Anion Gap 8 mmol/L; Basophils % (A) 1 %; Blood Urea Nitrogen 19 mg/dL (9-20); Calcium 9.6 mg/dL (8.4-10.2); Carbon Dioxide 26 mmol/L (22-30); Chloride 108 mmol/L (98-107); Creatine Kinase 172 U/L (55-170); Eosinophils # (A) 0.2 k/uL (0-0.7); Eosinophils % (A) 2 %; Glucose 105 mg/dL (74-99); HCT 43.2 % (39.0-53.0); HGB 13.9 gm/dL (13.0-17.5); Lymphocytes # (A) 1.6 k/uL (1.0-4.8); Lymphocytes % (A) 21 %; MCH 32.4 pg (25.0-35.0); MCHC 32.2 g/dL (31.0-37.0); MCV 100.4 fL (80.0-100.0); Macrocytosis Slight; Mean Platelet Volume 6.3; Monocytes # (A) 0.5 k/uL (0-1.0); Monocytes % (A) 7 %; Neutrophils # (A) 5.2 k/uL (1.3-7.7); Neutrophils % (A) 68 %; Platelet Count 206 k/uL (150-450); Potassium 3.9 mmol/L (3.5-5.1); RDW 14.3 % (11.5-15.5); Sodium 142 mmol/L (137-145); Total Bilirubin 0.6 mg/dL (0.2-1.3); Total Protein 7.4 g/dL (6.3-8.2); WBC 7.6 k/uL (3.8-10.6)
--- NOTE | 2018-08-20 15:02 | CT ---
EXAMINATION TYPE: CT brain wo con DATE OF EXAM: 08/20/2018 COMPARISON: CT brain report March 20, 2018. HISTORY: Confused. Altered mental status. CT DLP: 1099.4 mGycm. Automated Exposure Control for Dose Reduction was Utilized. TECHNIQUE: CT scan of the head is performed without contrast. FINDINGS: There is no acute intracranial hemorrhage, mass effect, or midline shift identified. The ventricles and sulci are within normal limits in size. Bilateral basal ganglia calcifications are pr esent. Nonspecific 1.4 cm low dense focus right frontal deep white matter axial image 24. This is stefani cribed on prior report favoring chronic small vessel ischemic change. Completely opacified visualized portion of right maxillary sinus. Remainder paranasal sinuses are clear. IMPRESSION: No acute intracranial hemorrhage or midline shift. Likely stable mild to moderate chroni c small vessel ischemic change. Right maxillary sinus disease not described on prior report may be ne w. Correlate clinically.
--- NOTE | 2018-08-20 15:16 | XR ---
EXAMINATION TYPE: XR chest 2V DATE OF EXAM: 08/20/2018 COMPARISON: Prior chest x-ray report October 24, 2016. HISTORY: Altered mental status and weakness. TECHNIQUE: Frontal and lateral views of the chest are obtained. FINDINGS: Loop recorder overlies the anterior superior left heart border within the chest wall There is no focal air space opacity, pleural effusion, or pneumothorax seen. The cardiac silhouette size is enlarged. The osseous structures are intact. IMPRESSION: Cardiomegaly without acute pulmonary process.
[2018-08-20 16:31] LABS: Appearance,Urine Clear (Clear); Bilirubin,Urine Negative (Negative); Blood,Urine Negative (Negative); Color,Urine Light Yellow; Glucose,Urine (UA) Negative (Negative); Ketones,Urine Negative (Negative); Leukocyte Esterase,Urine Negative (Negative); Nitrite,Urine Negative (Negative); PH, Urine 5.5 (5.0-8.0); Protein,Urine Negative (Negative); Specific Gravity,Urine 1.011 (1.001-1.035); Urobilinogen,Urine <2.0 mg/dL (<2.0)
[2018-08-20 16:45] LABS: Amphetamine Screen,Urine Not Detected (NotDetected); Barbiturate Screen,Urine Not Detected (NotDetected); Benzodiazepines Screen,Urine Detected (NotDetected); Cocaine Screen,Urine Not Detected (NotDetected); Methadone Screen, Urine Not Detected (NotDetected); Opiate Screen,Urine Not Detected (NotDetected); Oxycodone Screen, Urine Not Detected (NotDetected); Phencyclidine Screen,Urine Not Detected (NotDetected); Tricyclic Antidepressant,Urine Not Detected (NotDetected); Urn Cannabinoid Scrn Not Detected (NotDetected)
[2018-08-20 18:05] VITALS: BP 121/84; PULSE 65; RESP 18; TEMP 98
== END 2018-08-20 18:05 | disposition home or self-care (01) ==
LOC: EC 13:48
DX: R41.0 Disorientation, unspecified (principal); R45.1 Restlessness and agitation; D53.1 Other megaloblastic anemias, not elsewhere classified; E07.9 Disorder of thyroid, unspecified; I47.2 Ventricular tachycardia; Z86.73 Personal history of transient ischemic attack (TIA), and cerebral infarction without residual deficits; Z95.818 Presence of other cardiac implants and grafts; Z79.890 Hormone replacement therapy; Z79.899 Other long term (current) drug therapy; Z88.0 Allergy status to penicillin; Z88.2 Allergy status to sulfonamides
CPT/HCPCS: 36415; 51701; 70450; 71046; 80053; 80306; 81003; 82140; 82550; 84484; 85025; 85610; 85730; 87086; 93005; 99285

== ENCOUNTER → 2018-09-19 | Outpatient (CLI) | payer OTHER ==
--- NOTE | 2018-09-19 12:22 | P.STRESS ---
- Stress Test Note Stress Test Results/Findings: Exam Performed: NM stress lexiscan cardiolite Exam Date: 09/19/18 Reason for Exam: CHEST PAIN Height: 5 ft 4 in Weight: 61.689 kg Protocol: LEXISCAN Stage: N/A Duration of Exercise: 6 MINUTES Resting Heart Rate: 69 Resting Blood Pressure: 106/68 Maximum Achieved Heart Rate: 91 Maximum Achieved Blood Pressure: 125/78 85% PMHR: N/A 100% PMHR: N/A METS: N/A Technologist Comment: Stress Test Results/Findings: This is a 48-year-old gentleman with history of hypertension and previous CVA, being evaluated for cardiac status because of chest pains. Stress data: Baseline EKG showed sinus rhythm with normal GA interval and QRS duration. A standard dose of Lexiscan was infused EKGs taken during and after the infusion did not reveal any significant changes from the baseline. Final impression: #1. Negative Lexiscan stress test #2. Report on the nuclear images to be given by the radiologist
--- NOTE | 2018-09-19 17:19 | NM ---
EXAMINATION TYPE: NM stress lexiscan cardiolite DATE OF EXAM: 09/19/2018 COMPARISON: NONE HISTORY: 48-year-old male with chest pain, dilated cardiomyopathy, hypertension, prior catheterizatio n. TECHNIQUE: After the intravenous administration of 9.58 mCi Tc 99m Sestamibi - Cardiolite resting SP ECT images acquired 45 minutes post injection. The patient received 0.4mg Lexiscan, 25.7 mCi Tc 99m Sestamibi - Stress images obtained [address] injection FINDINGS: Review of stress and rest SPECT images demonstrates a small area of reversibility along the apical in ferolateral wall. Gated analysis shows overall normal wall motion with an estimated left ventricular ejection fraction of 61 %. TID is calculated at 0.96, within normal limits. IMPRESSION: Unable to exclude small area of reversibility along the apical inferolateral wall.
--- NOTE | 2018-09-20 11:33 | EST ---
Stress Test Results/Findings: Exam Performed: NM stress lexiscan cardiolite Exam Date: 09/19/18 Reason for Exam: CHEST PAIN Height: 5 ft 4 in Weight: 61.689 kg Protocol: LEXISCAN Stage: N/A Duration of Exercise: 6 MINUTES Resting Heart Rate: 69 Resting Blood Pressure: 106/68 Maximum Achieved Heart Rate: 91 Maximum Achieved Blood Pressure: 125/78 85% PMHR: N/A 100% PMHR: N/A METS: N/A Technologist Comment: Stress Test Results/Findings: This is a 48-year-old gentleman with history of hypertension and previous CVA, being evaluated for cardiac status because of chest pains. Stress data: Baseline EKG showed sinus rhythm with normal MN interval and QRS duration. A standard dose of Lexiscan was infused EKGs taken during and after the infusion did not reveal any significant changes from the baseline. Final impression: #1. Negative Lexiscan stress test #2. Report on the nuclear images to be given by the radiologist ZAINAB
== END ==
LOC: RADNMMAIN 07:43
PROVIDERS: ATTEND Internal Medicine Clinical Cardiac Electrophysiology
DX: I42.0 Dilated cardiomyopathy (principal); R07.9 Chest pain, unspecified
CPT/HCPCS: 78452; 93017

== ENCOUNTER → 2019-02-03 | Outpatient (CLI) | payer OTHER ==
--- NOTE | 2019-02-03 13:42 | US ---
EXAMINATION TYPE: US liver DATE OF EXAM: 02/03/2019 COMPARISON: 03/22/2018 CLINICAL HISTORY: 48-year-old male R94.5 Abnormal results of liver function studies. Abnormal LFT's TECHNIQUE: Multiple sonographic images of the right upper quadrant are obtained. FINDINGS: EXAM MEASUREMENTS: Liver Length: 13.0 cm Gallbladder Wall: 0.2 cm CBD: 5.4 mm Right Kidney: 9.2 x 4.8 x 4.4 cm Pancreas: Suboptimal visualization of the pancreatic head and tail due to shadowing from bowel gas. Visualized pancreatic body shows no gross abnormality. Liver: Heterogeneous as seen on previous exams . No focal lesion seen. Gallbladder: wnl Evidence for sonographic Chand's sign: No CBD: wnl Right Kidney: wnl IMPRESSION: Similar slight heterogeneity of the liver which may reflect nonspecific underlying hepatocellular dis ease.
== END | disposition home or self-care (01) ==
LOC: RADUSWWP 08:19
PROVIDERS: ATTEND Internal Medicine
DX: R94.5 Abnormal results of liver function studies (principal)
CPT/HCPCS: 76705

== ENCOUNTER → 2019-03-11 | Outpatient (CLI) | payer OTHER ==
--- NOTE | 2019-03-11 22:54 | CT ---
EXAMINATION TYPE: CT brain wo con DATE OF EXAM: 03/11/2019 HISTORY: headache following head injury [address] DLP: 1121 mGycm. Automated Exposure Control for Dose Reduction was Utilized. TECHNIQUE: CT scan of the head is performed without contrast. COMPARISON: CT brain August 20, 2018. FINDINGS: There is no acute intracranial hemorrhage or midline shift identified. There is diffuse v entricular and sulcal prominence consistent with diffuse age-related cerebral atrophy. Marquez-white mat ter differentiation is fairly well-maintained. Bilateral basal ganglia calcifications are redemonstra mandeep. There is persistent right frontal parenchymal calcification axial image 28. Just posterior to th is there is persistent hypodense area axial image 26 deep right frontal lobe. There is persistent com pletely opacified right maxillary sinus. The globes are intact. The calvarium is intact. IMPRESSION: No acute intracranial hemorrhage or midline shift. Persistent mild diffuse cerebral atro phy and focus of nonspecific white matter change along with complete opacified right maxillary sinus.
== END | disposition home or self-care (01) ==
LOC: RADCTMAIN 16:50
PROVIDERS: ATTEND Internal Medicine
DX: G31.9 Degenerative disease of nervous system, unspecified (principal); R90.89 Other abnormal findings on diagnostic imaging of central nervous system; R51 Headache
CPT/HCPCS: 70450

== ENCOUNTER → 2019-03-25 | Outpatient (CLI) | payer OTHER ==
--- NOTE | 2019-03-26 05:08 | CT ---
EXAMINATION TYPE: CT sinus wo con DATE OF EXAM: 03/25/2019 COMPARISON: 04/04/2016 HISTORY: 48-year-old male chronic sinusitis CT DLP: 594 mGycm Automated exposure control for dose reduction was used. TECHNIQUE: Noncontrast axial views of the paranasal sinuses were obtained. Coronal reconstructions pe rformed. FINDINGS: PARANASAL SINUSES: Persistent complete opacification of the right frontal sinus and small polyp or mucosal retention cys t measuring 8 mm left maxillary sinus. Sphenoid, ethmoid, and frontal sinuses are well pneumatized. There is no air-fluid level. Reactive lyudmila- osteogenesis is not seen. There is no destruction of the osseous thomas of the paranasal sinuses. THE NASAL CAVITY: The right maxillary sinus ostium appears narrowed/closed. Left osteomeatal complex is patent. The nasal septum is not deviated. Benign basal ganglionic calcifications. Patchy deep white matter hypodensities suggest changes of chr onic small vessel ischemic disease. Mastoid air cells and middle ear cavities are well pneumatized. Reformatted images confirm above findings. IMPRESSION: 1. On coronal series, the right maxillary sinus ostium appears narrowed/closed. This likely accounts for the continued complete opacification of the right maxillary sinus. 2. Stable tiny 8 mm left maxillary sinus polyp/mucosal retention cyst.
== END | disposition home or self-care (01) ==
LOC: RADCTMAIN 13:05
PROVIDERS: ATTEND Otolaryngology
DX: J32.9 Chronic sinusitis, unspecified (principal)
CPT/HCPCS: 70486

== ENCOUNTER → 2019-04-30 | Outpatient (CLI) | payer OTHER ==
[2019-04-30 08:58] LABS: Anisocytosis Slight; Basophils # (A) 0.1 k/uL (0-0.2); Basophils % (A) 1 %; Eosinophils # (A) 0.2 k/uL (0-0.7); Eosinophils % (A) 4 %; HCT 39.5 % (39.0-53.0); HGB 12.7 gm/dL (13.0-17.5); Lymphocytes # (A) 1.9 k/uL (1.0-4.8); Lymphocytes % (A) 36 %; MCH 33.8 pg (25.0-35.0); MCHC 32.3 g/dL (31.0-37.0); MCV 104.8 fL (80.0-100.0); Macrocytosis Marked; Mean Platelet Volume 6.2; Monocytes # (A) 0.3 k/uL (0-1.0); Monocytes % (A) 5 %; Neutrophils # (A) 2.6 k/uL (1.3-7.7); Neutrophils % (A) 52 %; Platelet Count 254 k/uL (150-450); Poikilocytosis Slight; RBC 3.77 m/uL (4.30-5.90); RDW 18.3 % (11.5-15.5); WBC 5.1 k/uL (3.8-10.6)
[2019-04-30 16:55] LABS: % Iron Saturation 60.58 (15.00-50.00); African American GFR (CKD) 122.4 (60.0-200.0); Albumin 4.1 g/dL (3.80-4.90); Albumin/Globulin Ratio 1.71 (1.60-3.17); Anion Gap 9.7 mmol/L (4.00-12.00); BUN/Creat Ratio 13.75 Ratio (12.00-20.00); Calcium 8.6 mg/dL (8.7-10.3); Carbon Dioxide 27.3 mmol/L (21.6-31.8); Ferritin 1641.5 ng/mL (22.0-322.0); Globulin 2.4 g/dL (1.6-3.3); Potassium 3.9 mmol/L (3.5-5.5); Total Bilirubin 1.3 mg/dL (0.2-1.2); Total Protein 6.5 g/dL (6.2-8.2)
[2019-04-30 18:05] LABS: Hepatitis B Surface Antigen Non-Reactive (Non-Reactive)
[2019-05-01 07:24] LABS: Protein, Total 6.6 g/dL (6.2-8.2)
[2019-05-01 11:04] LABS: Ceruloplasmin 19.2 mg/dL (20.0-60.0)
[2019-05-01 13:21] LABS: Albumin 3.93 g/dL (3.80-4.90)
== END | disposition home or self-care (01) ==
LOC: LABWHC1 08:10
PROVIDERS: ATTEND Internal Medicine Gastroenterology
DX: R94.5 Abnormal results of liver function studies (principal)
CPT/HCPCS: 36415; 80053; 82103; 82390; 82728; 83516; 83540; 83550; 84165; 85025; 86038; 87340

== ENCOUNTER → 2019-05-29 | Outpatient (CLI) | payer OTHER ==
[2019-05-29 13:29] LABS: Basophils % (A) 1 %; Eosinophils # (A) 0.1 k/uL (0-0.7); Eosinophils % (A) 3 %; HCT 43.4 % (39.0-53.0); HGB 13.9 gm/dL (13.0-17.5); Lymphocytes # (A) 1.7 k/uL (1.0-4.8); Lymphocytes % (A) 33 %; MCH 34.4 pg (25.0-35.0); MCHC 32.1 g/dL (31.0-37.0); MCV 106.9 fL (80.0-100.0); Macrocytosis Moderate; Monocytes # (A) 0.3 k/uL (0-1.0); Monocytes % (A) 6 %; Neutrophils # (A) 2.9 k/uL (1.3-7.7); Neutrophils % (A) 56 %; Platelet Count 183 k/uL (150-450); RBC 4.06 m/uL (4.30-5.90); RDW 14.4 % (11.5-15.5); WBC 5.2 k/uL (3.8-10.6)
[2019-05-29 14:29] LABS: ALT 44 U/L (4-49); AST 55 U/L (17-59); African American GFR (CKD) >90 (>60 ml/min/1.73 sqM); Albumin 4.7 g/dL (3.5-5.0); Albumin/Globulin Ratio 1.5; Alkaline Phosphatase 113 U/L (38-126); Anion Gap 11 mmol/L; Blood Urea Nitrogen 14 mg/dL (9-20); Calcium 9.8 mg/dL (8.4-10.2); Carbon Dioxide 26 mmol/L (22-30); Chloride 103 mmol/L (98-107); Globulin 3.2 g/dL; Glucose 100 mg/dL (74-99); Non-African American GFR(CKD) >90 (>60 ml/min/1.73 sqM); Potassium 4.4 mmol/L (3.5-5.1); Sodium 140 mmol/L (137-145); Total Bilirubin 1.1 mg/dL (0.2-1.3); Total Protein 7.9 g/dL (6.3-8.2)
== END | disposition home or self-care (01) ==
LOC: LABWHC1 12:08
PROVIDERS: ATTEND Internal Medicine Gastroenterology
DX: R94.5 Abnormal results of liver function studies (principal)
CPT/HCPCS: 36415; 80053; 83516; 85025

== ENCOUNTER 2019-06-22 11:45 | Emergency (ER) | payer OTHER ==
[2019-06-22 12:00] VITALS: TEMP 97.7
--- NOTE | 2019-06-22 12:30 | ED ---
Psych HPI - General Chief Complaint: Psychiatric Symptoms Stated Complaint: Withdrawal Time Seen by Provider: 06/22/19 12:09 Source: patient Mode of arrival: ambulatory - History of Present Illness Initial Comments: Patient is a 49-year-old male with history of substance abuse presents to the emergency department with a chief complaint of withdrawal. Patient reports began using narcotic pain medication recreationally for long time. Patient reports his sister is heavily involved in bed and get the medications of the streets. Patient reports he has taken the medication multiple times this month. He is concerned for possible withdrawal. He states the last time he took the medication was 4 days ago. Patient states that he is an other psychiatric medication to bilateral his depression and anxiety. Patient sees a therapist. Patient denies any nausea vomiting diarrhea or headaches. Patient denies suicidal thoughts or ideations. - Related Data Home Medications Medication Instructions Recorded Confirmed Cholecalciferol (Vitamin D3) 2,000 unit PO DAILY 08/20/18 08/20/18 [Vitamin D3] Levothyroxine Sodium [Synthroid] 75 mcg PO DAILY 08/20/18 08/20/18 Metoprolol Tartrate [Lopressor] 25 mg PO DAILY 08/20/18 08/20/18 Previous Rx's Medication Instructions Recorded Allopurinol [Zyloprim] 100 mg PO DAILY #30 tab 06/21/18 FLUoxetine HCL [PROzac] 40 mg PO DAILY #30 capsule 06/21/18 Lacosamide [Vimpat] 200 mg PO BID 30 Days #60 tablet 06/21/18 Lisinopril [Zestril] 2.5 mg PO HS #30 tab 06/21/18 Meclizine [Antivert] 12.5 mg PO TID #90 tab 06/21/18 clonazePAM [KlonoPIN] 0.5 mg PO QID PRN 3 Days #12 tab 06/21/18 Allergies Allergy/AdvReac Type Severity Reaction Status Date / Time amoxicillin Allergy Rash/Hives Verified 06/22/19 12:00 Sulfa (Sulfonamide Allergy Rash/Hives Verified 06/22/19 12:00 Antibiotics) Review of Systems ROS Statement: Those systems with pertinent positive or pertinent negative responses have been documented in the HPI. ROS Other: All systems not noted in ROS Statement are negative. Past Medical History Past Medical History: Chest Pain / Angina, CVA/TIA, Seizure Disorder, Thyroid Disorder Additional Past Medical History / Comment(s): States TIA from xrays- no deficits, v-tach, 2 seizures in 03/2016 - then 1 at home and 2 in ER on 03/20/18, gout. History of Any Multi-Drug Resistant Organisms: None Reported Past Surgical History: Cardiac Ablation, Heart Catheterization Additional Past Surgical History / Comment(s): Tilt table test, stress test 2017, heart cath 2017. Past Anesthesia/Blood Transfusion Reactions: No Reported Reaction Additional Past Anesthesia/Blood Transfusion Reaction / Comment(s): Never had general anesthesia/transfusions. Past Psychological History: Anxiety, Depression, Panic Disorder Smoking Status: Never smoker Past Alcohol Use History: Occasional Past Drug Use History: Prescription Drug Abuse - Past Family History Mother History Unknown: Yes Family Medical History: No Reported History Additional Family Medical History / Comment(s): MS Father History Unknown: Yes Additional Family Medical History / Comment(s): BREATHING PROBLEMS General Exam Limitations: no limitations General appearance: alert, in no apparent distress Head exam: Present: atraumatic, normocephalic, normal inspection Eye exam: Present: normal appearance, PERRL, EOMI Pupils: Present: normal accommodation ENT exam: Present: normal exam, mucous membranes moist Neck exam: Present: normal inspection, full ROM Respiratory exam: Present: normal lung sounds bilaterally Cardiovascular Exam: Present: regular rate, normal rhythm, normal heart sounds Extremities exam: Present: normal inspection, full ROM Back exam: Present: normal inspection Neurological exam: Present: alert, oriented X3, CN II-XII intact, normal gait Psychiatric exam: Present: normal affect, normal mood Skin exam: Present: warm, dry, intact, normal color Course Vital Signs 06/22/19 06/22/19 11:57 12:00 Temperature 97.7 F Pulse Rate 62 65 Respiratory 18 18 Rate Blood Pressure 106/72 110/75 O2 Sat by Pulse 98 98 Oximetry Medical Decision Making - Medical Decision Making Patient is a 49-year-old male presenting to emergency Department with a chief complaint of withdrawal. Physical examination is unremarkable. Last and patient took Narcotics was 4 days ago. I'm not suspecting withdrawals at this time. Patient denies suicidal, homicidal thoughts or ideations. EPS evaluated the patient. Patient will be discharged. CT plan discussed with patient. Patient was given more information on resources available to deal with his abusive relationship with street narcotics. Patient advised to return to emergency department if symptoms worsen. Case discussed with physician. Disposition Clinical Impression: Withdrawal complaint Disposition: HOME SELF-CARE Condition: Stable Instructions (If sedation given, give patient instructions): Opioid Withdrawal (ED) Additional Instructions: Please follow up with [facility] and your therapist. Please return to emergency department if symptoms worsen. Is patient prescribed a controlled substance at d/c from ED?: No Referrals: Aries Ma MD [Primary Care Provider] - 1-2 days Time of Disposition: 14:13
[2019-06-22 14:07] VITALS: BP 115/80; PULSE 63; RESP 20
== END 2019-06-22 14:31 | disposition home or self-care (01) ==
LOC: EC 11:45
DX: R68.89 Other general symptoms and signs (principal); E07.9 Disorder of thyroid, unspecified; Z79.890 Hormone replacement therapy; Z79.899 Other long term (current) drug therapy; Z88.0 Allergy status to penicillin; Z88.2 Allergy status to sulfonamides; Z86.73 Personal history of transient ischemic attack (TIA), and cerebral infarction without residual deficits
CPT/HCPCS: 82075; 99284

== ENCOUNTER → 2019-08-07 | Outpatient (CLI) | payer OTHER ==
[2019-08-07 15:55] LABS: % Iron Saturation 27.58 (15.00-50.00); Albumin 4.4 g/dL (3.80-4.90); Bilirubin, Conjugated 0.2 mg/dL (0.20-0.40); Bilirubin,Unconjugated 0.2 mg/dL; Globulin 2.2 g/dL (1.6-3.3); Total Bilirubin 0.4 mg/dL (0.2-1.2); Total Protein 6.6 g/dL (6.2-8.2)
[2019-08-07 16:03] LABS: Ferritin 189.4 ng/mL (22.0-322.0)
== END | disposition home or self-care (01) ==
LOC: LABWHC1 08:14
PROVIDERS: ATTEND Nurse Practitioner
DX: R94.5 Abnormal results of liver function studies (principal); R77.8 Other specified abnormalities of plasma proteins
CPT/HCPCS: 36415; 80076; 82728; 83540; 83550

== ENCOUNTER 2019-11-05 19:34 | Emergency (ER) | payer OTHER ==
[2019-11-05 19:49] VITALS: RESP 18
[2019-11-05] MEDS ORDERED: LORazepam 1 MG TAB PO STA (20:22)
--- NOTE | 2019-11-05 20:29 | ED ---
General Adult HPI - General Chief complaint: Psychiatric Symptoms Stated complaint: Mental Health Time Seen by Provider: 11/05/19 19:40 Source: patient, family, RN notes reviewed, old records reviewed Mode of arrival: ambulatory Limitations: no limitations - History of Present Illness Initial comments: This is a 49-year-old male who presents emergency department stating that he is very anxious. Patient states she's been more argumentative but he believes is secondary to the fact that he has been drinking today. Patient states he is unable to sleep and the longer he stays at the more anxious he becomes. Patient states he has had Ativan in the past and is requesting a little Ativan today sacral back home and go to sleep. Patient denies any suicidal homicidal ideations. Patient denies hearing any voices or seeing any hallucinations. Patient's denies any physical complaints today. Father is with the patient and states that he just needs some sleep and just away from the alcohol. - Related Data Home Medications Medication Instructions Recorded Confirmed Cholecalciferol (Vitamin D3) 2,000 unit PO DAILY 08/20/18 08/20/18 [Vitamin D3] Levothyroxine Sodium [Synthroid] 75 mcg PO DAILY 08/20/18 08/20/18 Metoprolol Tartrate [Lopressor] 25 mg PO DAILY 08/20/18 08/20/18 Previous Rx's Medication Instructions Recorded Allopurinol [Zyloprim] 100 mg PO DAILY #30 tab 06/21/18 FLUoxetine HCL [PROzac] 40 mg PO DAILY #30 capsule 06/21/18 Lacosamide [Vimpat] 200 mg PO BID 30 Days #60 tablet 06/21/18 Lisinopril [Zestril] 2.5 mg PO HS #30 tab 06/21/18 Meclizine [Antivert] 12.5 mg PO TID #90 tab 06/21/18 clonazePAM [KlonoPIN] 0.5 mg PO QID PRN 3 Days #12 tab 06/21/18 Allergies Allergy/AdvReac Type Severity Reaction Status Date / Time amoxicillin Allergy Rash/Hives Verified 11/05/19 19:49 Sulfa (Sulfonamide Allergy Rash/Hives Verified 11/05/19 19:49 Antibiotics) Review of Systems ROS Statement: Those systems with pertinent positive or pertinent negative responses have been documented in the HPI. ROS Other: All systems not noted in ROS Statement are negative. Past Medical History Past Medical History: Chest Pain / Angina, CVA/TIA, Seizure Disorder, Thyroid Disorder Additional Past Medical History / Comment(s): States TIA from xrays- no deficits, v-tach, 2 seizures in 03/2016 - then 1 at home and 2 in ER on 03/20/18, gout. History of Any Multi-Drug Resistant Organisms: None Reported Past Surgical History: Cardiac Ablation, Heart Catheterization Additional Past Surgical History / Comment(s): Tilt table test, stress test 2017, heart cath 2017. Past Anesthesia/Blood Transfusion Reactions: No Reported Reaction Additional Past Anesthesia/Blood Transfusion Reaction / Comment(s): Never had general anesthesia/transfusions. Past Psychological History: Anxiety, Depression, Panic Disorder Smoking Status: Never smoker Past Alcohol Use History: Occasional Past Drug Use History: Prescription Drug Abuse - Past Family History Mother History Unknown: Yes Family Medical History: No Reported History Additional Family Medical History / Comment(s): MS Father History Unknown: Yes Additional Family Medical History / Comment(s): BREATHING PROBLEMS General Exam - General Exam Comments Initial Comments: GENERAL: Patient is well-developed and well-nourished. Patient is nontoxic and well- hydrated and is in no acute distress. Patient appears mildly intoxicated ENT: Neck is soft and supple. No significant lymphadenopathy is noted. Oropharynx is clear. Moist mucous membranes. Neck has full range of motion without eliciting any pain. EYES: The sclera were anicteric and conjunctiva were pink and moist. Extraocular movements were intact and pupils were equal round and reactive to light. Eyelids were unremarkable. PULMONARY: Unlabored respirations. Good breath sounds bilaterally. No audible rales rh onchi or wheezing was noted. CARDIOVASCULAR: There is a regular rate and rhythm without any murmurs gallops or rubs. ABDOMEN: Soft and nontender with normal bowel sounds. No palpable organomegaly was noted. There is no palpable pulsatile mass. SKIN: Skin is clear with no lesions or rashes and otherwise unremarkable. NEUROLOGIC: Patient is alert and oriented x3. Cranial nerves II through XII are grossly intact. Motor and sensory are also intact. Normal speech, volume and content. Symmetrical smile. MUSCULOSKELETAL: Normal extremities with adequate strength and full range of motion. LYMPHATICS: No significant lymphadenopathy is noted PSYCHIATRIC: Patient is mildly anxious. Limitations: no limitations Course Vital Signs 11/05/19 19:40 Temperature 97.4 F L Pulse Rate 72 Respiratory 18 Rate Blood Pressure 126/87 O2 Sat by Pulse 98 Oximetry Disposition Clinical Impression: Anxiety, Alcohol abuse Disposition: HOME SELF-CARE Instructions (If sedation given, give patient instructions): Abuse of Alcohol (ED), Anxiety (ED) Is patient prescribed a controlled substance at d/c from ED?: No Referrals: Aries Ma MD [Primary Care Provider] - 1-2 days Time of Disposition: 20:30
[2019-11-05 20:55] VITALS: BP 133/70; PULSE 69; TEMP 98
== END 2019-11-05 20:54 | disposition home or self-care (01) ==
LOC: EC 19:34
DX: F41.9 Anxiety disorder, unspecified (principal); F10.10 Alcohol abuse, uncomplicated; I25.2 Old myocardial infarction; E07.9 Disorder of thyroid, unspecified; M10.9 Gout, unspecified; Z79.890 Hormone replacement therapy; Z79.899 Other long term (current) drug therapy; Z95.5 Presence of coronary angioplasty implant and graft; Z88.0 Allergy status to penicillin; Z88.2 Allergy status to sulfonamides; Z86.73 Personal history of transient ischemic attack (TIA), and cerebral infarction without residual deficits
CPT/HCPCS: 82075; 99283

== ENCOUNTER 2019-12-23 21:57 | Observation (INO) | payer OTHER ==
--- NOTE | 2019-12-23 22:51 | ED ---
Altered Mental Status HPI - General Chief Complaint: Altered Mental Status Stated Complaint: Mental Health Time Seen by Provider: 12/23/19 22:00 Source: police Mode of arrival: ambulatory Limitations: no limitations - History of Present Illness Initial Comments: Patient is a 49-year-old male with past history of prescription drug abuse, seizures, TIA who presents to the emergency department with reported altered mental status. History is provided by his patient's visit he lives with. Patient's parents report that he would usually go for a bike ride and come back after 30 minutes. They report that the patient left this morning and did not return. Police found the patient wandering around [place]. Patient is unaware of the year month or date. He cannot explain the events that happened. He is covered in sunburn. Parents report that he was recently placed on baclofen for back pain. He does have a history of prescription drug abuse. Patient is alert however not oriented at this time. Demonstrates mild sedation. Cannot extend the events of today. Denies using any illicit drugs. Denies any trauma. Remainder of the HPI is limited - Related Data Home Medications Medication Instructions Recorded Confirmed Cholecalciferol (Vitamin D3) 2,000 unit PO DAILY 08/20/18 12/24/19 [Vitamin D3] Levothyroxine Sodium [Synthroid] 75 mcg PO DAILY 08/20/18 12/24/19 Lacosamide [Vimpat] 100 mg PO BID 12/24/19 12/24/19 Lisinopril [Zestril] 2.5 mg PO DAILY 12/24/19 12/24/19 Metoprolol Succinate [Toprol XL] 25 mg PO DAILY 12/24/19 12/24/19 clonazePAM [KlonoPIN] 0.5 mg PO DAILY@0900,1400 12/24/19 12/24/19 clonazePAM [KlonoPIN] 1 mg PO HS 12/24/19 12/24/19 Previous Rx's Medication Instructions Recorded Allopurinol [Zyloprim] 100 mg PO DAILY #30 tab 06/21/18 FLUoxetine HCL [PROzac] 40 mg PO DAILY #30 capsule 06/21/18 Meclizine [Antivert] 12.5 mg PO TID #90 tab 06/21/18 Allergies Allergy/AdvReac Type Severity Reaction Status Date / Time amoxicillin Allergy Rash/Hives Verified 12/24/19 07:54 Sulfa (Sulfonamide Allergy Rash/Hives Verified 12/24/19 07:54 Antibiotics) Review of Systems ROS Statement: Those systems with pertinent positive or pertinent negative responses have been documented in the HPI. ROS Other: All systems not noted in ROS Statement are negative. Past Medical History Past Medical History: Chest Pain / Angina, CVA/TIA, Seizure Disorder, Thyroid Disorder Additional Past Medical History / Comment(s): States TIA from xrays- no deficits, v-tach, 2 seizures in 03/2016 - then 1 at home and 2 in ER on 03/20/18, gout. History of Any Multi-Drug Resistant Organisms: None Reported Past Surgical History: Cardiac Ablation, Heart Catheterization Additional Past Surgical History / Comment(s): Tilt table test, stress test 2017, heart cath 2017. Past Anesthesia/Blood Transfusion Reactions: No Reported Reaction Additional Past Anesthesia/Blood Transfusion Reaction / Comment(s): Never had general anesthesia/transfusions. Past Psychological History: Anxiety, Depression, Panic Disorder Smoking Status: Never smoker Past Alcohol Use History: Occasional Past Drug Use History: Prescription Drug Abuse - Past Family History Mother History Unknown: Yes Family Medical History: No Reported History Additional Family Medical History / Comment(s): MS Father History Unknown: Yes Additional Family Medical History / Comment(s): BREATHING PROBLEMS General Exam Limitations: altered mental status General appearance: lethargic Head exam: Present: atraumatic, normocephalic, normal inspection Eye exam: Present: normal appearance, PERRL, EOMI. Absent: scleral icterus, conjunctival injection, periorbital swelling ENT exam: Present: normal exam, mucous membranes moist Neck exam: Present: normal inspection. Absent: tenderness, meningismus, lymphadenopathy Respiratory exam: Present: normal lung sounds bilaterally. Absent: respiratory distress, wheezes, rales, rhonchi, stridor Cardiovascular Exam: Present: normal rhythm, tachycardia, normal heart sounds. Absent: systolic murmur, diastolic murmur, rubs, gallop, clicks GI/Abdominal exam: Present: soft, normal bowel sounds. Absent: distended, tenderness, guarding, rebound, rigid Extremities exam: Present: normal inspection, full ROM, normal capillary refill. Absent: tenderness, pedal edema, joint swelling, calf tenderness Back exam: Present: normal inspection Neurological exam: Present: altered, CN II-XII intact, other (oriented x 1. Answers questions appropriaately. Follows commands. Awakens to moderate tactile stimuli. Appears fatigued) Psychiatric exam: Present: flat affect Skin exam: Present: warm, dry, intact, other (sunburn on bilateral cheeks and dorsal upper extremities - no blistering of skin). Absent: rash Course Vital Signs 12/23/19 12/24/19 12/24/19 22:01 00:00 00:30 Temperature 99.2 F Pulse Rate 122 H 96 92 Pulse Rate [ Right Supine Pulse Oximetery ] Respiratory 20 16 16 Rate Blood Pressure 156/79 145/80 Blood Pressure [Left Arm Supine] O2 Sat by Pulse 98 Oximetry 12/24/19 12/24/19 12/24/19 01:00 01:09 01:17 Temperature 98.9 F 98.5 F Pulse Rate 92 Pulse Rate [ 88 Right Supine Pulse Oximetery ] Respiratory 16 18 Rate Blood Pressure 129/93 Blood Pressure 149/93 [Left Arm Supine] O2 Sat by Pulse 99 Oximetry Medical Decision Making - Medical Decision Making Upon arrival the patient is placed in room 13. A thorough history and physical exam is performed. Patient is placed on continuous pulse ox and cardiac monitoring. Laboratory studies were conducted. UA is positive for benzodiazepines. CK 298. Patient has ecchymosis on the right anterior thigh however has intact range of motion. No other obvious signs of injury. Patient was sent over for a CT of his brain which demonstrates no acute intracranial findings. Patient does demonstrate signs of old lacunar infarcts. The patient is reevaluated and appears more alert. He still cannot tell me date or where he is at. I did recommend hospital admission for continued observation of altered mental status. A call discuss case with Dr. Ma agreed to admit the patient. Patient was then transferred to the floor in stable condition - Lab Data Result diagrams: 12/25/19 06:11 12/25/19 06:11 Lab Results 12/23/19 12/23/19 12/23/19 Range/Units 23:26 23:27 23:27 WBC 10.8 H (3.8-10.6) k/uL RBC 4.69 (4.30-5.90) m/uL Hgb 15.1 (13.0-17.5) gm/dL Hct 46.5 (39.0-53.0) % MCV 99.1 (80.0-100.0) fL MCH 32.1 (25.0-35.0) pg MCHC 32.4 (31.0-37.0) g/dL RDW 13.6 (11.5-15.5) % Plt Count 196 (150-450) k/uL Neutrophils % 80 % Lymphocytes % 12 % Monocytes % 6 % Eosinophils % 1 % Basophils % 0 % Neutrophils # 8.6 H (1.3-7.7) k/uL Lymphocytes # 1.3 (1.0-4.8) k/uL Monocytes # 0.7 (0-1.0) k/uL Eosinophils # 0.1 (0-0.7) k/uL Basophils # 0.0 (0-0.2) k/uL PT 9.7 (9.0-12.0) sec INR 0.9 (<1.2) APTT 22.3 (22.0-30.0) sec Sodium (137-145) mmol/L Potassium (3.5-5.1) mmol/L Chloride (98-107) mmol/L Carbon Dioxide (22-30) mmol/L Anion Gap mmol/L BUN (9-20) mg/dL Creatinine (0.66-1.25) mg/dL Est GFR (CKD-EPI)AfAm (>60 ml/min/1.73 sqM) Est GFR (CKD-EPI)NonAf (>60 ml/min/1.73 sqM) Glucose (74-99) mg/dL POC Glucose (mg/dL) 138 H (75-99) mg/dL POC Glu [employer] Manager ID Reginaldo Navas Calcium (8.4-10.2) mg/dL Total Bilirubin (0.2-1.3) mg/dL AST (17-59) U/L ALT (4-49) U/L Alkaline Phosphatase (38-126) U/L Ammonia (<30) umol/L Creatine Kinase (55-170) U/L Total Protein (6.3-8.2) g/dL Albumin (3.5-5.0) g/dL Salicylates mg/dL Acetaminophen ug/mL Serum Alcohol mg/dL 12/23/19 12/23/19 Range/Units 23:27 23:40 WBC (3.8-10.6) k/uL RBC (4.30-5.90) m/uL Hgb (13.0-17.5) gm/dL Hct (39.0-53.0) % MCV (80.0-100.0) fL MCH (25.0-35.0) pg MCHC (31.0-37.0) g/dL RDW (11.5-15.5) % Plt Count (150-450) k/uL Neutrophils % % Lymphocytes % % Monocytes % % Eosinophils % % Basophils % % Neutrophils # (1.3-7.7) k/uL Lymphocytes # (1.0-4.8) k/uL Monocytes # (0-1.0) k/uL Eosinophils # (0-0.7) k/uL Basophils # (0-0.2) k/uL PT (9.0-12.0) sec INR (<1.2) APTT (22.0-30.0) sec Sodium 140 (137-145) mmol/L Potassium 4.9 (3.5-5.1) mmol/L Chloride 109 H (98-107) mmol/L Carbon Dioxide 20 L (22-30) mmol/L Anion Gap 11 mmol/L BUN 18 (9-20) mg/dL Creatinine 0.97 (0.66-1.25) mg/dL Est GFR (CKD-EPI)AfAm >90 (>60 ml/min/1.73 sqM) Est GFR (CKD-EPI)NonAf >90 (>60 ml/min/1.73 sqM) Glucose 131 H (74-99) mg/dL POC Glucose (mg/dL) (75-99) mg/dL POC Glu [employer] Logistics Manager ID Calcium 9.9 (8.4-10.2) mg/dL Total Bilirubin 1.0 (0.2-1.3) mg/dL AST 43 (17-59) U/L ALT 24 (4-49) U/L Alkaline Phosphatase 95 (38-126) U/L Ammonia <9 (<30) umol/L Creatine Kinase 298 H (55-170) U/L Total Protein 8.1 (6.3-8.2) g/dL Albumin 5.0 (3.5-5.0) g/dL Salicylates <1.0 mg/dL Acetaminophen <10.0 ug/mL Serum Alcohol <10 mg/dL - EKG Data EKG Comments: EKG demonstrates normal sinus rhythm with ventricular rate 97. AR 134. QRS 86. QTC of 426. No acute ST segment elevations or depressions concerning for isc hemic changes Disposition Clinical Impression: Acute metabolic encephalopathy Disposition: ADMITTED IP TO THIS HOSP Condition: Stable Is patient prescribed a controlled substance at d/c from ED?: No Decision to Admit Reason: Admit from EC Decision Date: 12/24/19 Decision Time: 00:42
[2019-12-23] MEDS ORDERED: SODIUM CHLORIDE 0.9% 1,000 ML IV ONE (22:53)
--- NOTE | 2019-12-23 23:16 | CT ---
EXAMINATION TYPE: CT brain wo con DATE OF EXAM: 12/23/2019 COMPARISON: 03/11/2019 HISTORY: ams CT DLP: 1094.4 mGycm Automated exposure control for dose reduction was used. Exam performed without contrast. There is bilateral thalamic calcification. There is some mild hypodensity in the anterior left and ri ght internal capsule. There is no mass effect nor midline shift. There is no sign of intracranial hem orrhage. The calvarium is intact. IMPRESSION: Old lacunar infarcts in the left and right anterior internal capsule without change. No acute intracr anial abnormality.
[2019-12-23 23:28] LABS: Glucose,Whole Blood 138 mg/dL (75-99)
[2019-12-23 23:39] LABS: Basophils % (A) 0 %; Eosinophils # (A) 0.1 k/uL (0-0.7); Eosinophils % (A) 1 %; HCT 46.5 % (39.0-53.0); HGB 15.1 gm/dL (13.0-17.5); Lymphocytes # (A) 1.3 k/uL (1.0-4.8); Lymphocytes % (A) 12 %; MCH 32.1 pg (25.0-35.0); MCHC 32.4 g/dL (31.0-37.0); MCV 99.1 fL (80.0-100.0); Mean Platelet Volume 6.8; Monocytes # (A) 0.7 k/uL (0-1.0); Monocytes % (A) 6 %; Neutrophils # (A) 8.6 k/uL (1.3-7.7); Neutrophils % (A) 80 %; Platelet Count 196 k/uL (150-450); RBC 4.69 m/uL (4.30-5.90); RDW 13.6 % (11.5-15.5); WBC 10.8 k/uL (3.8-10.6)
[2019-12-23 23:48] LABS: INR 0.9 (<1.2); Partial Thromboplastin Time 22.3 sec (22.0-30.0); Prothrombin Time 9.7 sec (9.0-12.0)
[2019-12-23 23:50] LABS: ALT 24 U/L (4-49); AST 43 U/L (17-59); Acetaminophen <10.0 ug/mL; African American GFR (CKD) >90 (>60 ml/min/1.73 sqM); Alcohol <10 mg/dL; Alkaline Phosphatase 95 U/L (38-126); Anion Gap 11 mmol/L; Blood Urea Nitrogen 18 mg/dL (9-20); Calcium 9.9 mg/dL (8.4-10.2); Carbon Dioxide 20 mmol/L (22-30); Chloride 109 mmol/L (98-107); Creatine Kinase 298 U/L (55-170); Glucose 131 mg/dL (74-99); Non-African American GFR(CKD) >90 (>60 ml/min/1.73 sqM); Potassium 4.9 mmol/L (3.5-5.1); Salicylate <1.0 mg/dL; Sodium 140 mmol/L (137-145); Total Protein 8.1 g/dL (6.3-8.2)
[2019-12-24] MEDS ORDERED: NALOXONE 0.4 MG/ML 1 ML VIAL IV PRN (00:43)
[2019-12-24 01:29] LABS: Appearance,Urine Clear (Clear); Bilirubin,Urine Negative (Negative); Blood,Urine Negative (Negative); Color,Urine Yellow; Glucose,Urine (UA) Negative (Negative); Ketones,Urine 1+ (Negative); Leukocyte Esterase,Urine Negative (Negative); Nitrite,Urine Negative (Negative); PH, Urine 5.5 (5.0-8.0); Protein,Urine Trace (Negative); Specific Gravity,Urine 1.025 (1.001-1.035); Urobilinogen,Urine <2.0 mg/dL (<2.0)
[2019-12-24] MEDS: SODIUM CHLORIDE 0.9% 1,000 ML IV SCH ×2 (01:31→15:30)
[2019-12-24 01:46] LABS: Amphetamine Screen,Urine Not Detected (NotDetected); Barbiturate Screen,Urine Not Detected (NotDetected); Benzodiazepines Screen,Urine Detected (NotDetected); Cocaine Screen,Urine Not Detected (NotDetected); Methadone Screen, Urine Not Detected (NotDetected); Opiate Screen,Urine Not Detected (NotDetected); Oxycodone Screen, Urine Not Detected (NotDetected); Phencyclidine Screen,Urine Not Detected (NotDetected); Tricyclic Antidepressant,Urine Not Detected (NotDetected); Urn Cannabinoid Scrn Not Detected (NotDetected)
[2019-12-24] MEDS ORDERED: ALLOPURINOL 100 MG TAB PO SCH (13:30)
[2019-12-24] MEDS ORDERED: NON FORMULARY DRUG (Fluoxetine Hcl [Prozac] 40 MG) PO SCH (13:30)
[2019-12-24] MEDS ORDERED: LISINOPRIL 2.5 MG TAB PO SCH (13:30)
[2019-12-24] MEDS ORDERED: METOPROLOL SUCCINATE (ER) 25 MG TAB.ER.24H PO SCH (13:30)
[2019-12-24] MEDS ORDERED: NON FORMULARY DRUG (Cholecalciferol (Vitamin D3) [Vitamin D3] 2,000 UNIT) PO SCH (13:30)
[2019-12-24] MEDS ORDERED: LEVOTHYROXINE 75 MCG TAB PO SCH (13:30)
[2019-12-24] MEDS ORDERED: clonazePAM 0.5 MG TAB PO SCH ×2 (14:00→21:00)
[2019-12-24] MEDS ORDERED: ACETAMINOPHEN TAB 500 MG TAB PO PRN (17:22)
--- NOTE | 2019-12-24 17:54 | P.HPIM ---
History of Present Illness H&P Date: 12/24/19 Marco Antonio South, he is a 49-year-old male who was brought into [facility] emergency room with confusion and altered mental status, patient was out in the sun for more than 9 hours he was wandering around he had abrasion on his hands and his nose, apparently patient took extra pills on his muscle relaxers and was confused, patient has known previous history of TIA, seizure disorder, prescription drug abuse,. Patient was seen and examined on the medical floor he is alert responsive in no apparent distress he is asking about discharge home asking for pain medications otherwise he denies any complaints there is no fever or chills no headache or dizziness no chest pain no shortness of breath no cough no nausea or vomiting no abdominal pain no diarrhea no burning with urination no frequency or urgency and Past Medical History Past Medical History: Chest Pain / Angina, CVA/TIA, Seizure Disorder, Thyroid Disorder Additional Past Medical History / Comment(s): States TIA from xrays- no deficits, v-tach, 2 seizures in 03/2016 - then 1 at home and 2 in ER on 03/20/18, gout. History of Any Multi-Drug Resistant Organisms: None Reported Past Surgical History: Cardiac Ablation, Heart Catheterization Additional Past Surgical History / Comment(s): Tilt table test, stress test 2017, heart cath 2017. Past Anesthesia/Blood Transfusion Reactions: No Reported Reaction Additional Past Anesthesia/Blood Transfusion Reaction / Comment(s): Never had general anesthesia/transfusions. Past Psychological History: Anxiety, Depression, Panic Disorder Smoking Status: Never smoker Past Alcohol Use History: Occasional Past Drug Use History: Prescription Drug Abuse - Past Family History Mother History Unknown: Yes Family Medical History: No Reported History Additional Family Medical History / Comment(s): MS Father History Unknown: Yes Additional Family Medical History / Comment(s): BREATHING PROBLEMS Medications and Allergies Home Medications Medication Instructions Recorded Confirmed Type Allopurinol [Zyloprim] 100 mg PO DAILY #30 tab 06/21/18 12/24/19 Rx FLUoxetine HCL [PROzac] 40 mg PO DAILY #30 capsule 06/21/18 12/24/19 Rx Meclizine [Antivert] 12.5 mg PO TID #90 tab 06/21/18 12/24/19 Rx Cholecalciferol (Vitamin D3) 2,000 unit PO DAILY 08/20/18 12/24/19 History [Vitamin D3] Levothyroxine Sodium [Synthroid] 75 mcg PO DAILY 08/20/18 12/24/19 History Lacosamide [Vimpat] 100 mg PO BID 12/24/19 12/24/19 History Lisinopril [Zestril] 2.5 mg PO DAILY 12/24/19 12/24/19 History Metoprolol Succinate [Toprol XL] 25 mg PO DAILY 12/24/19 12/24/19 History clonazePAM [KlonoPIN] 0.5 mg PO DAILY@0900,1400 12/24/19 12/24/19 History clonazePAM [KlonoPIN] 1 mg PO HS 12/24/19 12/24/19 History Allergies Allergy/AdvReac Type Severity Reaction Status Date / Time amoxicillin Allergy Rash/Hives Verified 12/24/19 07:54 Sulfa (Sulfonamide Allergy Rash/Hives Verified 12/24/19 07:54 Antibiotics) Physical Exam Vitals: Vital Signs Temp Pulse Pulse Resp BP BP Pulse Ox 12/24/19 05:22 98.8 F 86 18 128/79 99 12/24/19 04:34 98 F 88 20 114/62 99 12/24/19 02:05 88 18 12/24/19 01:17 98.5 F 88 18 149/93 99 12/24/19 01:09 98.9 F 12/24/19 01:00 92 16 129/93 12/24/19 00:30 92 16 145/80 12/24/19 00:00 96 16 12/23/19 22:01 99.2 F 122 H 20 156/79 98 Intake and Output 12/24/19 12/24/19 12/24/19 06:59 14:59 22:59 Intake Total 1055 740 Balance 1055 740 Intake: Intake, IV Titration 375 Amount Sodium Chloride 0.9% 1, 375 000 ml @ 75 mls/hr IV . [id number] FITO Rx#:[id number] Oral 680 740 Other: Voiding Method Toilet Toilet # Voids 1 3 Weight 56.563 kg in general patient is alert, responsive in no apparent distress HEENT head with evidence of prolonged sun exposure and large abrasion on the nose Neck is supple no JVD no goiter no lymphadenopathy Chest exam reveals a few scattered rhonchi bilaterally no wheezing Cardiac exam reveals regular heart sounds S1 and S2 no gallops no murmurs Abdomen is soft nontender no organomegaly was normal bowel sounds Extremity exam reveals no edema no cyanosis or clubbing there are some superficial abrasion on bilateral upper extremities Results CBC & Chem 7: 12/23/19 23:27 12/23/19 23:27 Labs: Abnormal Lab Results - Last 24 Hours (Table) 12/23/19 12/23/19 12/23/19 Range/Units 23:26 23:27 23:27 WBC 10.8 H (3.8-10.6) k/uL Neutrophils # 8.6 H (1.3-7.7) k/uL Chloride 109 H (98-107) mmol/L Carbon Dioxide 20 L (22-30) mmol/L Glucose 131 H (74-99) mg/dL POC Glucose (mg/dL) 138 H (75-99) mg/dL Creatine Kinase 298 H (55-170) U/L Urine Protein (Negative) Urine Ketones (Negative) U Benzodiazepines Scrn (NotDetected) 12/24/19 Range/Units 01:13 WBC (3.8-10.6) k/uL Neutrophils # (1.3-7.7) k/uL Chloride (98-107) mmol/L Carbon Dioxide (22-30) mmol/L Glucose (74-99) mg/dL POC Glucose (mg/dL) (75-99) mg/dL Creatine Kinase (55-170) U/L Urine Protein Trace H (Negative) Urine Ketones 1+ H (Negative) U Benzodiazepines Scrn Detected H (NotDetected) Thrombosis Risk Factor Assmnt - Choose All That Apply Any of the Below Risk Factors Present?: Yes Each Factor Represents 1 point: Age 41-60 years Thrombosis Risk Factor Assessment Total Risk Factor Score: 1 Thrombosis Risk Factor Assessment Level: Low Risk Assessment and Plan Plan: 1. mental status changes likely related to baclofen overdose 2. Underlying history of seizure disorder 3. Previous history of TIA 4. Previous history of prescription drug abuse 5. Prolonged sun exposure and large abrasion on the nose and superficial abrasions on bilateral upper extremity At this time will add Rocephin 1 g IV every 24 hours and Bactroban cream to the nose abrasion Home medications reviewed and reordered Neurology consultation request Will follow in a.m.
[2019-12-24] MEDS: MECLIZINE 12.5 MG TAB PO SCH ×2 (19:16→22:08)
[2019-12-24] MEDS: LEVOTHYROXINE 75 MCG TAB PO SCH (19:16)
[2019-12-24] MEDS: CHOLECALCIFEROL 1,000 UNIT TAB PO SCH (19:16)
[2019-12-24] MEDS: LISINOPRIL 2.5 MG TAB PO SCH (19:16)
[2019-12-24] MEDS: FLUoxetine HCL 20 MG CAP PO SCH (19:16)
[2019-12-24] MEDS: ALLOPURINOL 100 MG TAB PO SCH (19:16)
[2019-12-24] MEDS: METOPROLOL SUCCINATE (ER) 25 MG TAB.ER.24H PO SCH (19:16)
[2019-12-24] MEDS ORDERED: clonazePAM 1 MG TAB PO SCH (21:00)
[2019-12-24] MEDS: LACOSAMIDE 50 MG TABLET PO SCH (21:05)
[2019-12-25] MEDS: MUPIROCIN 2% OINT 22 GM TUBE TOPICAL SCH ×4 (05:05→16:08)
[2019-12-25] MEDS: LACOSAMIDE 100 MG PO SCH (05:06)
[2019-12-25] MEDS: MECLIZINE 12.5 MG TAB PO SCH ×3 (05:07→16:08)
[2019-12-25] MEDS: LEVOTHYROXINE 75 MCG TAB PO SCH (06:09)
[2019-12-25] MEDS: SODIUM CHLORIDE 0.9% 1,000 ML IV SCH ×2 (06:11→18:47)
[2019-12-25 06:53] LABS: Basophils % (A) 0 %; Eosinophils # (A) 0.2 k/uL (0-0.7); Eosinophils % (A) 5 %; HCT 39.2 % (39.0-53.0); HGB 13.1 gm/dL (13.0-17.5); Lymphocytes # (A) 1.3 k/uL (1.0-4.8); Lymphocytes % (A) 31 %; MCH 34.1 pg (25.0-35.0); MCHC 33.5 g/dL (31.0-37.0); MCV 101.8 fL (80.0-100.0); Macrocytosis Slight; Mean Platelet Volume 7.1; Monocytes # (A) 0.3 k/uL (0-1.0); Monocytes % (A) 7 %; Neutrophils # (A) 2.3 k/uL (1.3-7.7); Neutrophils % (A) 56 %; Platelet Count 150 k/uL (150-450); RBC 3.85 m/uL (4.30-5.90); RDW 13.7 % (11.5-15.5); WBC 4.1 k/uL (3.8-10.6)
[2019-12-25 07:29] LABS: African American GFR (CKD) >90 (>60 ml/min/1.73 sqM); Anion Gap 3 mmol/L; Blood Urea Nitrogen 11 mg/dL (9-20); Calcium 8.3 mg/dL (8.4-10.2); Carbon Dioxide 25 mmol/L (22-30); Chloride 112 mmol/L (98-107); Glucose 84 mg/dL (74-99); Non-African American GFR(CKD) >90 (>60 ml/min/1.73 sqM); Potassium 4.1 mmol/L (3.5-5.1); Sodium 140 mmol/L (137-145)
[2019-12-25] MEDS: METOPROLOL SUCCINATE (ER) 25 MG TAB.ER.24H PO SCH (08:00)
[2019-12-25] MEDS: LACOSAMIDE 50 MG TABLET PO SCH (08:00)
[2019-12-25] MEDS: LISINOPRIL 2.5 MG TAB PO SCH (08:01)
[2019-12-25] MEDS: ALLOPURINOL 100 MG TAB PO SCH (08:01)
[2019-12-25] MEDS: FLUoxetine HCL 20 MG CAP PO SCH (08:01)
[2019-12-25] MEDS: CHOLECALCIFEROL 1,000 UNIT TAB PO SCH (08:01)
[2019-12-25] MEDS ORDERED: clonazePAM 0.5 MG TAB PO SCH (09:00)
--- NOTE | 2019-12-25 18:48 | P.DS ---
Providers Date of admission: 12/24/19 00:45 Expected date of discharge: 12/25/19 Attending physician: Aries Ma Consults: 12/24/19 13:30 Consult Physician Routine Consulting Provider: Kitty Chakraborty Consult Reason/Comments: headache, confusion Do you want consulting provider notified?: Yes Primary care physician: Aries [facility] Course: Diagnosis on discharge: 1. mental status changes likely related to baclofen overdose 2. Underlying history of seizure disorder 3. Previous history of TIA 4. Previous history of prescription drug abuse 5. Prolonged sun exposure and large abrasion on the nose and superficial abrasions on bilateral upper extremity Hospital course: Marco Antonio South, he is a 49-year-old male who was brought into [facility] emergency room with confusion and altered mental status, patient was out in the sun for more than 9 hours he was wandering around he had abrasion on his hands and his nose, apparently patient took extra pills on his muscle relaxers and was confused, patient has known previous history of TIA, seizure disorder, prescription drug abuse,. Patient was seen and examined on the medical floor he is alert responsive in no apparent distress he is asking about discharge home asking for pain medications otherwise he denies any complaints there is no fever or chills no headache or dizziness no chest pain no shortness of breath no cough no nausea or vomiting no abdominal pain no diarrhea no burning with urination no frequency or urgency and On 12/25/2019 patient was seen and examined on the medical floor he is alert and oriented 3 in no apparent distress there is no fever or chills no headache or dizziness no chest pain no shortness of breath no cough no nausea or vomiting no abdominal pain no diarrhea no burning with urination no frequency or urgency and no hematuria. Patient was evaluated by Dr. Smith on neurologist and was cleared for discharge today to continue on his same home medications. Follow up in our office in 2-3 days. Patient Condition at Discharge: Stable Plan - Discharge Summary Discharge Rx Participant: No New Discharge Prescriptions: Continue Allopurinol [Zyloprim] 100 mg PO DAILY #30 tab FLUoxetine HCL [PROzac] 40 mg PO DAILY #30 capsule Meclizine [Antivert] 12.5 mg PO TID #90 tab Levothyroxine Sodium [Synthroid] 75 mcg PO DAILY Cholecalciferol (Vitamin D3) [Vitamin D3] 2,000 unit PO DAILY Metoprolol Succinate [Toprol XL] 25 mg PO DAILY Lisinopril [Zestril] 2.5 mg PO DAILY Lacosamide [Vimpat] 100 mg PO BID clonazePAM [KlonoPIN] 1 mg PO HS clonazePAM [KlonoPIN] 0.5 mg PO DAILY@0900,1400 Discharge Medication List Allopurinol [Zyloprim] 100 mg PO DAILY #30 tab 06/21/18 [Rx] FLUoxetine HCL [PROzac] 40 mg PO DAILY #30 capsule 06/21/18 [Rx] Meclizine [Antivert] 12.5 mg PO TID #90 tab 06/21/18 [Rx] Cholecalciferol (Vitamin D3) [Vitamin D3] 2,000 unit PO DAILY 08/20/18 [History] Levothyroxine Sodium [Synthroid] 75 mcg PO DAILY 08/20/18 [History] Lacosamide [Vimpat] 100 mg PO BID 12/24/19 [History] Lisinopril [Zestril] 2.5 mg PO DAILY 12/24/19 [History] Metoprolol Succinate [Toprol XL] 25 mg PO DAILY 12/24/19 [History] clonazePAM [KlonoPIN] 0.5 mg PO DAILY@0900,1400 12/24/19 [History] clonazePAM [KlonoPIN] 1 mg PO HS 12/24/19 [History] Follow up Appointment(s)/Referral(s): Aries Ma MD [Primary Care Provider] - 1-2 days
--- NOTE | 2019-12-25 18:57 | P.CNNES ---
History of Present Illness Consult date: 12/25/19 Requesting physician: Aries Ma Reason for Consult: Headache, confusion History of Present Illness: Patient is a 49-year-old male with history of possible seizure disorder, was brought to the hospital by police, after he was found 9 hours after he went for a bike ride. Patient lives with his parents. His parents were also present. Apparently it was very hot outside 95F. Patient's father told him not to go outside but he still went outside on his bike. They were unable to find him for 9 hours. He was found confused, wandering in the [place], in a very hot weather by the police, suffering from sunburn over his face and his dorsal hand region. Patient also tells me that he took double dose of baclofen that he is prescribed. He supposed to take baclofen 10 mg twice a day although the day he took 4 tablets. He also took his usual dose of Klonopin. Patient was very confused when he arrived, disoriented. He was severely dehydrated. CT head showed old lacunar infarcts in the left and right anterior internal capsule without change. No acute intracranial abnormality. EKG shows normal sinus rhythm. Patient had an MRA of head on 08/17/2014, which was normal. MRI of the brain from 08/17/2014 showed old lacunar infarct in the posterior limb of the left internal capsule. Patient an EEG performed 3 times in the past on 07/13/2014, 03/21/2018 and 06/20/2018, all were normal. Patient's blood test shows elevated WBC 10.8. Normal electrolytes. Normal renal functions. Liver panel normal. Urine drug screen positive for benzodiazepine. Blood alcohol level negative. Jordan virus PCR negative. Patient apparently has history of seizure disorder, follows up by Dr. Weston. Patient currently is on Vimpat 100 mg twice a day. According to patient and his parents, he has not had any seizure for over 2-3 years. I asked patient, as well as his parents individually, and apparently they agree that he has not had any seizure for almost 2 years. Patient and the family members are not good historian. Not able to tell the type of seizures. Apparently one time he was standing and fell suffering from some head injury, requiring a CAT scan of head. Other times he was found on the floor with blood due to some trauma. He previously was on Vimpat 200 mg twice a day, but had side effects from it. Review of Systems Pain due to sunburn. Denies headache problem with the vision hoarseness, sore throat, dysphagia. Denies chest pain shortness of breath. Ears, nose, mouth and throat: Denies dysphagia Cardiovascular: Denies chest pain Past Medical History Past Medical History: Chest Pain / Angina, CVA/TIA, Seizure Disorder, Thyroid Disorder Additional Past Medical History / Comment(s): States TIA from xrays- no deficits, v-tach, 2 seizures in 03/2016 - then 1 at home and 2 in ER on 03/20/18, gout. History of Any Multi-Drug Resistant Organisms: None Reported Past Surgical History: Cardiac Ablation, Heart Catheterization Additional Past Surgical History / Comment(s): Tilt table test, stress test 2017, heart cath 2017. Past Anesthesia/Blood Transfusion Reactions: No Reported Reaction Additional Past Anesthesia/Blood Transfusion Reaction / Comment(s): Never had general anesthesia/transfusions. Past Psychological History: Anxiety, Depression, Panic Disorder Smoking Status: Never smoker Past Alcohol Use History: Occasional Past Drug Use History: Prescription Drug Abuse - Past Family History Mother History Unknown: Yes Family Medical History: No Reported History Additional Family Medical History / Comment(s): MS Father History Unknown: Yes Additional Family Medical History / Comment(s): BREATHING PROBLEMS Medications and Allergies Home Medications Medication Instructions Recorded Confirmed Type Allopurinol [Zyloprim] 100 mg PO DAILY #30 tab 06/21/18 12/24/19 Rx FLUoxetine HCL [PROzac] 40 mg PO DAILY #30 capsule 06/21/18 12/24/19 Rx Meclizine [Antivert] 12.5 mg PO TID #90 tab 06/21/18 12/24/19 Rx Cholecalciferol (Vitamin D3) 2,000 unit PO DAILY 08/20/18 12/24/19 History [Vitamin D3] Levothyroxine Sodium [Synthroid] 75 mcg PO DAILY 08/20/18 12/24/19 History Lacosamide [Vimpat] 100 mg PO BID 12/24/19 12/24/19 History Lisinopril [Zestril] 2.5 mg PO DAILY 12/24/19 12/24/19 History Metoprolol Succinate [Toprol XL] 25 mg PO DAILY 12/24/19 12/24/19 History clonazePAM [KlonoPIN] 0.5 mg PO DAILY@0900,1400 12/24/19 12/24/19 History clonazePAM [KlonoPIN] 1 mg PO HS 12/24/19 12/24/19 History Allergies Allergy/AdvReac Type Severity Reaction Status Date / Time amoxicillin Allergy Rash/Hives Verified 12/24/19 07:54 Sulfa (Sulfonamide Allergy Rash/Hives Verified 12/24/19 07:54 Antibiotics) Physical Examination - Vital Signs Vital Signs: Vital Signs Temp Pulse Resp BP Pulse Ox 12/25/19 12:21 98.2 F 55 L 16 113/71 99 12/25/19 04:25 97.5 F L 59 L 16 101/67 98 12/24/19 20:15 98.3 F 65 18 124/77 98 Intake and Output 12/25/19 12/25/19 12/25/19 06:59 14:59 22:59 Intake Total 970 Balance 970 Intake: Oral 970 Other: Voiding Method Toilet # Voids 2 2 On examination patient is a middle aged male, in no distress. Patient is alert and awake fully oriented. Speech and language functions are normal. Attention and concentration is intact, fund of knowledge is somewhat low. Detailed testing deferred. On cranial examination pupils are round and reactive to light, visual french are full. Extraocular muscles are intact with no nystagmus. Face is symmetric, tongue protrudes the midline. Palatal elevation and sensation normal. Hearing and shoulder shrug normal muscle strength is normal in the arms and legs reflexes are 2+ and plantars downgoing. Sensory touch is equal. No ataxia tone and bulk of muscles normal. Gait appears normal. No carotid bruit or murmur, peripheral pulses present. Abdomen soft nontender. Chest clear. Results - Laboratory Findings CBC and BMP: 12/25/19 06:11 12/25/19 06:11 Abnormal Lab Findings: Abnormal Labs 12/23/19 12/23/19 12/23/19 23:26 23:27 23:27 WBC 10.8 H RBC MCV Neutrophils # 8.6 H Chloride 109 H Carbon Dioxide 20 L Glucose 131 H POC Glucose (mg/dL) 138 H Calcium Creatine Kinase 298 H Urine Protein Urine Ketones U Benzodiazepines Scrn 12/24/19 12/25/19 12/25/19 01:13 06:11 06:11 WBC RBC 3.85 L MCV 101.8 H Neutrophils # Chloride 112 H Carbon Dioxide Glucose POC Glucose (mg/dL) Calcium 8.3 L Creatine Kinase Urine Protein Trace H Urine Ketones 1+ H U Benzodiazepines Scrn Detected H Assessment and Plan Assessment: * Altered mental status, likely due to heat exhaustion, possible dehydration, possible medication side effect (took double dose of baclofen). Seizure is also a possibility, although possibly triggered due to above. * History of seizure disorder Plan: * Patient and his family members claims that he has not had any seizures for about 2 years. He will be continued on same dose of Vimpat 100 mg twice a day. If he has any breakthrough seizure, then the dose can be increased to 150 mg twice a day. I think this episode was probably not a seizure, probably heat exhaustion. Even if it was a seizure, was perhaps triggered by heat exhaustion. Therefore I would not make any changes in his seizure medication. * He should follow-up with his neurologist in 1-2 weeks. * Patient should not drive for 6 months, operate dangerous machinery, climbing ladders or go for unsupervised swimming. * Neurologically clear for discharge.
[2019-12-26 09:06] VITALS: BP 113/71; PULSE 55; RESP 16; TEMP 98.2
== END 2019-12-25 19:26 | disposition home or self-care (01) ==
LOC: EC 21:57 → 5NMEDONC 12-24 00:45
PROVIDERS: ADMIT Internal Medicine; ATTEND Internal Medicine
DX: R41.82 Altered mental status, unspecified (principal); E86.0 Dehydration; Z91.14 Patient's other noncompliance with medication regimen; L55.9 Sunburn, unspecified; S00.31XA Abrasion of nose, initial encounter; S40.812A Abrasion of left upper arm, initial encounter; S40.811A Abrasion of right upper arm, initial encounter; X32.XXXA Exposure to sunlight, initial encounter; Z03.818 Encounter for observation for suspected exposure to other biological agents ruled out; D72.829 Elevated white blood cell count, unspecified; G40.909 Epilepsy, unspecified, not intractable, without status epilepticus; I47.2 Ventricular tachycardia; M10.9 Gout, unspecified; M54.9 Dorsalgia, unspecified; E07.9 Disorder of thyroid, unspecified; F41.0 Panic disorder [episodic paroxysmal anxiety]; F32.9 Major depressive disorder, single episode, unspecified; F41.9 Anxiety disorder, unspecified; Z79.890 Hormone replacement therapy; Z79.899 Other long term (current) drug therapy; Z88.0 Allergy status to penicillin; Z88.2 Allergy status to sulfonamides; Z86.73 Personal history of transient ischemic attack (TIA), and cerebral infarction without residual deficits; Z87.898 Personal history of other specified conditions; Z82.69 Family history of other diseases of the musculoskeletal system and connective tissue; Z83.6 Family history of other diseases of the respiratory system
CPT/HCPCS: 96360; 96361 ×2; 99285; 36415; 93005; 80053; 80048; 82140; 82550; 85025 ×2; 85610; 85730; 81003; 80306; 83520; 70450; G0378 ×2; G0480 ×2; U0003; 80320; 80329

== ENCOUNTER → 2020-05-27 | Outpatient (CLI) | payer OTHER ==
--- NOTE | 2020-05-27 16:03 | US ---
EXAMINATION TYPE: US liver DATE OF EXAM: 05/27/2020 COMPARISON: 02/03/2019 CLINICAL HISTORY: R94.5 Abnormal results of liver function studies. EXAM MEASUREMENTS: Liver Length: 13.3 cm Gallbladder Wall: 0.3 cm CBD: 0.6 cm Right Kidney: 8.8 x 4.3 x 4.4 cm Pancreas: Tail obscured by overlying bowel gas Liver: wnl Gallbladder: wnl Evidence for sonographic Chand's sign: no CBD: wnl Right Kidney: No cysts or stones IMPRESSION: 1. Normal right upper quadrant ultrasound
== END | disposition home or self-care (01) ==
LOC: RADUSWWP 09:38
PROVIDERS: ATTEND Internal Medicine Gastroenterology
DX: R94.5 Abnormal results of liver function studies (principal)
CPT/HCPCS: 76705

== ENCOUNTER → 2020-05-27 | Outpatient (CLI) | payer OTHER ==
[2020-05-27 19:25] LABS: ALT 20 U/L (10-49); AST 32 U/L (14-35); Albumin/Globulin Ratio 1.87 (1.60-3.17); Alkaline Phosphatase 75 U/L (41-126); Bilirubin, Conjugated <0.20 mg/dL (0.20-0.40); Globulin 2.3 g/dL (1.6-3.3); Total Bilirubin 0.2 mg/dL (0.2-1.2); Total Protein 6.6 g/dL (6.2-8.2)
== END | disposition home or self-care (01) ==
LOC: LABWHC1 09:41
PROVIDERS: ATTEND Nurse Practitioner
DX: R94.5 Abnormal results of liver function studies (principal)
CPT/HCPCS: 36415; 80076

== ENCOUNTER 2020-09-02 07:57 | Day surgery (SDC) | payer OTHER ==
[2020-08-30 15:31] VITALS: BMI 21.2
[2020-09-02 08:35] VITALS: TEMP 97.5
[2020-09-02] MEDS: LIDOCAINE 1% (10MG/ML) FOR IV START INTRADERMA ONE ×2 (08:36→09:47)
[2020-09-02] MEDS: LACTATED RINGERS 1,000 ML IV SCH ×2 (08:36→08:38)
[2020-09-02] MEDS ORDERED: LIDOCAINE 1% INJ 10MG/ML (20 ML MDV) ONE (09:20)
[2020-09-02] MEDS ORDERED: PROPOFOL 10 MG/ML 20 ML VIAL IV ONE (09:20)
--- NOTE | 2020-09-02 09:24 | P.GSHP ---
History of Present Illness H&P Date: 09/02/20 Chief Complaint: Screening colonoscopy Is a 50-year-old male presents today for screening colonoscopy. Patient denies any significant GI complaints. Past Medical History Past Medical History: Chest Pain / Angina, CVA/TIA, Hyperlipidemia, Hypertension, Seizure Disorder, Thyroid Disorder Additional Past Medical History / Comment(s): States TIA from xrays- no deficits, v-tach, 2 seizures in 03/2016 - then 1 at home , LAST SEIZURE IN 2017 , gout. History of Any Multi-Drug Resistant Organisms: None Reported Past Surgical History: Cardiac Ablation, Heart Catheterization Additional Past Surgical History / Comment(s): Tilt table test, stress test 2016, heart cath 2016. Past Anesthesia/Blood Transfusion Reactions: No Reported Reaction Additional Past Anesthesia/Blood Transfusion Reaction / Comment(s): Never had general anesthesia/transfusions. Smoking Status: Never smoker - Past Family History Mother History Unknown: Yes Family Medical History: No Reported History Additional Family Medical History / Comment(s): MS Father History Unknown: Yes Additional Family Medical History / Comment(s): BREATHING PROBLEMS Medications and Allergies Home Medications Medication Instructions Recorded Confirmed Type FLUoxetine HCL [PROzac] 40 mg PO DAILY #30 capsule 06/21/18 09/02/20 Rx Meclizine [Antivert] 12.5 mg PO TID #90 tab 06/21/18 09/02/20 Rx allopurinoL [Zyloprim] 100 mg PO DAILY #30 tab 06/21/18 09/02/20 Rx Cholecalciferol (Vitamin D3) 2,000 unit PO DAILY 08/20/18 09/02/20 History [Vitamin D3] Levothyroxine Sodium [Synthroid] 75 mcg PO DAILY 08/20/18 09/02/20 History Lacosamide [Vimpat] 100 mg PO BID 12/24/19 09/02/20 History Metoprolol Succinate [Toprol XL] 25 mg PO DAILY 12/24/19 09/02/20 History clonazePAM [KlonoPIN] 0.5 mg PO DAILY@0900,1400 12/24/19 09/02/20 History clonazePAM [KlonoPIN] 1 mg PO HS 12/24/19 09/02/20 History lisinopriL [Zestril] 2.5 mg PO DAILY 12/24/19 09/02/20 History Baclofen 10 mg PO BID PRN 08/30/20 09/02/20 History Allergies Allergy/AdvReac Type Severity Reaction Status Date / Time amoxicillin Allergy Rash/Hives Verified 09/02/20 08:37 Sulfa (Sulfonamide Allergy Rash/Hives Verified 09/02/20 08:37 Antibiotics) Surgical - Exam Vital Signs Temp Pulse Resp BP Pulse Ox 97.5 F L 71 16 156/74 100 09/02/20 08:33 09/02/20 08:33 09/02/20 08:33 09/02/20 08:33 09/02/20 08:33 - General well developed, well nourished, no distress - Eyes PERRL - ENT normal pinna - Neck no masses - Respiratory normal expansion - Cardiovascular Rhythm: regular - Abdomen Abdomen: soft, non tender Assessment and Plan Assessment: We'll perform screening colonoscopy
--- NOTE | 2020-09-02 09:36 | P.OP ---
Date of Procedure: 09/02/20 Preoperative Diagnosis: Screening colonoscopy Postoperative Diagnosis: Diverticulosis Procedure(s) Performed: Colonoscopy Anesthesia: MAC Surgeon: Francisco Charles Pathology: none sent Condition: stable Disposition: PACU Description of Procedure: Patient's placed on the endoscopy table lateral position. He received IV sedation. The digital rectal exam performed which revealed no abnormalities. The prostate was symmetric without nodules. The flexible colonoscope was then placed patient anus and passed throughout the entire colon. The ileocecal valve was visually. The cecum, ascending and transverse colon appeared normal. In the descending and sigmoid colon there were no polyps seen. The sigmoid colon was a few scattered diverticula. Scope was then brought back the rectum this appeared normal. Scope withdrawn for patient.
[2020-09-02 09:52] VITALS: BP 109/71; PULSE 73; RESP 18
== END 2020-09-02 10:26 | disposition home or self-care (01) ==
LOC: ORWHC2ENDO 07:57
PROVIDERS: ATTEND Surgery
DX: Z12.11 Encounter for screening for malignant neoplasm of colon (principal); K57.30 Diverticulosis of large intestine without perforation or abscess without bleeding; I10 Essential (primary) hypertension; E78.5 Hyperlipidemia, unspecified; E07.9 Disorder of thyroid, unspecified; Z79.890 Hormone replacement therapy; Z79.899 Other long term (current) drug therapy; Z86.73 Personal history of transient ischemic attack (TIA), and cerebral infarction without residual deficits; Z84.89 Family history of other specified conditions; Z88.1 Allergy status to other antibiotic agents; Z88.2 Allergy status to sulfonamides
CPT/HCPCS: G0121; J2001; J2704

== ENCOUNTER → 2020-09-24 | Outpatient (CLI) | payer OTHER ==
[2020-09-25 02:05] LABS: African American GFR (CKD) 101.3 (60.0-200.0); Albumin 4.5 g/dL (3.80-4.90); Albumin/Globulin Ratio 1.96 (1.60-3.17); Anion Gap 12.4 mmol/L (4.00-12.00); Calcium 8.4 mg/dL (8.7-10.3); Carbon Dioxide 22.6 mmol/L (21.6-31.8); Chol/HDL Ratio 2.98; Globulin 2.3 g/dL (1.6-3.3); LDL Cholesterol,Calculated 76.8 mg/dL (0.0-131.0); Non-African American GFR(CKD) 87.4 (60.0-200.0); Potassium 4.5 mmol/L (3.5-5.5); Total Bilirubin 0.4 mg/dL (0.2-1.2); Total Protein 6.8 g/dL (6.2-8.2); VLDL Calculation 14.2 mg/dL (5.00-40.00)
== END | disposition home or self-care (01) ==
LOC: LABWHC1 13:03
PROVIDERS: ATTEND Internal Medicine Clinical Cardiac Electrophysiology
DX: I42.9 Cardiomyopathy, unspecified (principal)
CPT/HCPCS: 36415; 80053; 80061; 84443

== ENCOUNTER 2020-10-15 14:51 | Inpatient (IN) | payer OTHER ==
[2020-10-15] MEDS ORDERED: DIPH,PERTUS(ACELL)TETVAC-LF 0.5 ML VIAL IM ONE (15:29)
[2020-10-15] MEDS ORDERED: SODIUM CHLORIDE 0.9% 1,000 ML with MVI, ADULT NO.4 WITH VIT K 10 ML, THIAMINE 100 MG, F... IV ONE ×4 (15:41)
--- NOTE | 2020-10-15 15:41 | ED ---
Altered Mental Status HPI - General Chief Complaint: Altered Mental Status Stated Complaint: Altered Mental Status Time Seen by Provider: 10/15/20 15:17 Source: patient, family, RN notes reviewed, old records reviewed Mode of arrival: wheelchair Limitations: altered mental status - History of Present Illness Initial Comments: This is a 50-year-old male with a history of seizure disorder CVA TIA cardiomyopathy history of cardiac ablation he does have a loop recorder at this time who is brought in for evaluation of confusion. He apparently has been f alling a lot recently he did hit his head yesterday. He hasn't drank alcohol in the past and has not had any for 2 days. Per his mother no prior history of DTs or alcohol withdrawal problems. Is unclear how much she actually drinks. Unknown when his last tetanus shot was. The patient himself is a poor historian MD Complaint: altered mental status, decreased responsiveness - Related Data Home Medications Medication Instructions Recorded Confirmed Cholecalciferol (Vitamin D3) 50 mcg PO DAILY 08/20/18 10/15/20 [Vitamin D3] Metoprolol Succinate [Toprol XL] 25 mg PO BID 12/24/19 10/15/20 clonazePAM [KlonoPIN] 0.5 mg PO DAILY@0900,1400 12/24/19 10/15/20 clonazePAM [KlonoPIN] 1 mg PO HS 12/24/19 10/15/20 lisinopriL [Zestril] 2.5 mg PO DAILY 12/24/19 10/15/20 Baclofen 10 mg PO BID PRN 08/30/20 10/15/20 Levothyroxine Sodium 100 mcg PO DAILY 10/15/20 10/15/20 Rosuvastatin Calcium [Crestor] 5 mg PO DAILY 10/15/20 10/15/20 Previous Rx's Medication Instructions Recorded FLUoxetine HCL [PROzac] 40 mg PO DAILY #30 capsule 06/21/18 allopurinoL [Zyloprim] 100 mg PO DAILY #30 tab 06/21/18 Allergies Allergy/AdvReac Type Severity Reaction Status Date / Time amoxicillin Allergy Rash/Hives Verified 10/15/20 16:41 Sulfa (Sulfonamide Allergy Rash/Hives Verified 10/15/20 16:41 Antibiotics) Review of Systems ROS Statement: Those systems with pertinent positive or pertinent negative responses have been documented in the HPI. ROS Other: All systems not noted in ROS Statement are negative. Limitations: ROS unobtainable due to patients medical condition Past Medical History Past Medical History: Chest Pain / Angina, CVA/TIA, Hyperlipidemia, Hypertension, Seizure Disorder, Thyroid Disorder Additional Past Medical History / Comment(s): States TIA from xrays- no deficits, v-tach, 2 seizures in 03/2016 - then 1 at home , LAST SEIZURE IN 2018 , gout. History of Any Multi-Drug Resistant Organisms: None Reported Past Surgical History: Cardiac Ablation, Heart Catheterization Additional Past Surgical History / Comment(s): Tilt table test, stress test 2017, heart cath 2017. Past Anesthesia/Blood Transfusion Reactions: No Reported Reaction Additional Past Anesthesia/Blood Transfusion Reaction / Comment(s): Never had general anesthesia/transfusions. Past Psychological History: Anxiety, Depression, Panic Disorder Smoking Status: Never smoker Past Alcohol Use History: Abuse - Past Family History Mother History Unknown: Yes Family Medical History: No Reported History Additional Family Medical History / Comment(s): MS Father History Unknown: Yes Additional Family Medical History / Comment(s): BREATHING PROBLEMS General Exam - General Exam Comments Initial Comments: This a well-developed sec appearing male who is awake but apparently confused he does open his eyes and mouth on request. Limitations: altered mental status General appearance: alert, in no apparent distress Head exam: Present: normocephalic, normal inspection, other (Abrasion seen over the right forehead no step-off no crepitation no suture repair indicated.) Eye exam: Present: normal appearance, PERRL, EOMI. Absent: scleral icterus, conjunctival injection, periorbital swelling ENT exam: Present: mucous membranes dry Neck exam: Present: normal inspection. Absent: tenderness, meningismus, lymphadenopathy Respiratory exam: Present: normal lung sounds bilaterally. Absent: respiratory distress, wheezes, rales, rhonchi, stridor Cardiovascular Exam: Present: regular rate, normal rhythm, normal heart sounds. Absent: systolic murmur, diastolic murmur, rubs, gallop, clicks GI/Abdominal exam: Present: soft, normal bowel sounds. Absent: distended, tenderness, guarding, rebound, rigid Extremities exam: Present: normal inspection, full ROM, normal capillary refill. Absent: tenderness, pedal edema, joint swelling, calf tenderness Back exam: Present: normal inspection Neurological exam: Present: alert, altered, CN II-XII intact Psychiatric exam: Present: other (Unable to evaluate) Skin exam: Present: warm, dry, intact, normal color. Absent: rash Course Vital Signs 10/15/20 10/15/20 10/15/20 14:56 16:01 17:01 Temperature 97.4 F L Pulse Rate 73 56 L 58 L Respiratory 16 18 16 Rate Blood Pressure 139/87 110/65 103/60 O2 Sat by Pulse 92 L 98 98 Oximetry 10/15/20 18:01 Temperature 98.0 F Pulse Rate 55 L Respiratory 16 Rate Blood Pressure 105/64 O2 Sat by Pulse 98 Oximetry Medical Decision Making - Medical Decision Making I did reevaluate patient several occasions no changes as I did discuss the findings the patient's mother was present patient be admitted for inpatient evaluation and treatment neurology will be consulted I did discuss case with Dr. Ma consideration are seizure with prolonged postictal state versus alcohol- related etiology. - Lab Data Result diagrams: 10/15/20 15:37 10/15/20 15:37 Lab Results 10/15/20 10/15/20 10/15/20 Range/Units 15:37 15:37 15:37 WBC 4.1 (3.8-10.6) k/uL RBC 4.28 L (4.30-5.90) m/uL Hgb 14.1 (13.0-17.5) gm/dL Hct 42.5 (39.0-53.0) % MCV 99.2 (80.0-100.0) fL MCH 32.9 (25.0-35.0) pg MCHC 33.2 (31.0-37.0) g/dL RDW 15.0 (11.5-15.5) % Plt Count 115 L (150-450) k/uL MPV 7.8 Neutrophils % 63 % Lymphocytes % 23 % Monocytes % 8 % Eosinophils % 3 % Basophils % 1 % Neutrophils # 2.6 (1.3-7.7) k/uL Lymphocytes # 1.0 (1.0-4.8) k/uL Monocytes # 0.4 (0-1.0) k/uL Eosinophils # 0.1 (0-0.7) k/uL Basophils # 0.0 (0-0.2) k/uL Macrocytosis Slight Sodium 143 (137-145) mmol/L Potassium 3.9 (3.5-5.1) mmol/L Chloride 107 (98-107) mmol/L Carbon Dioxide 27 (22-30) mmol/L Anion Gap 9 mmol/L BUN 11 (9-20) mg/dL Creatinine 0.71 (0.66-1.25) mg/dL Est GFR (CKD-EPI)AfAm >90 (>60 ml/min/1.73 sqM) Est GFR (CKD-EPI)NonAf >90 (>60 ml/min/1.73 sqM) Glucose 134 H (74-99) mg/dL Osmolality 299 (280-301) mosm/kg Calcium 9.0 (8.4-10.2) mg/dL Magnesium 1.6 (1.6-2.3) mg/dL Total Bilirubin 0.8 (0.2-1.3) mg/dL AST 40 (17-59) U/L ALT 26 (4-49) U/L Alkaline Phosphatase 74 (38-126) U/L Ammonia <9 (<30) umol/L Creatine Kinase 127 (55-170) U/L Troponin I (0.000-0.034) ng/mL NT-Pro-B Natriuret Pep pg/mL Total Protein 6.8 (6.3-8.2) g/dL Albumin 4.1 (3.5-5.0) g/dL Lipase 57 (23-300) U/L TSH 5.350 H (0.465-4.680) mIU/L Free T4 0.48 L (0.78-2.19) ng/dL Serum Alcohol <10 mg/dL 10/15/20 10/15/20 Range/Units 15:37 15:37 WBC (3.8-10.6) k/uL RBC (4.30-5.90) m/uL Hgb (13.0-17.5) gm/dL Hct (39.0-53.0) % MCV (80.0-100.0) fL MCH (25.0-35.0) pg MCHC (31.0-37.0) g/dL RDW (11.5-15.5) % Plt Count (150-450) k/uL MPV Neutrophils % % Lymphocytes % % Monocytes % % Eosinophils % % Basophils % % Neutrophils # (1.3-7.7) k/uL Lymphocytes # (1.0-4.8) k/uL Monocytes # (0-1.0) k/uL Eosinophils # (0-0.7) k/uL Basophils # (0-0.2) k/uL Macrocytosis Sodium (137-145) mmol/L Potassium (3.5-5.1) mmol/L Chloride (98-107) mmol/L Carbon Dioxide (22-30) mmol/L Anion Gap mmol/L BUN (9-20) mg/dL Creatinine (0.66-1.25) mg/dL Est GFR (CKD-EPI)AfAm (>60 ml/min/1.73 sqM) Est GFR (CKD-EPI)NonAf (>60 ml/min/1.73 sqM) Glucose (74-99) mg/dL Osmolality (280-301) mosm/kg Calcium (8.4-10.2) mg/dL Magnesium (1.6-2.3) mg/dL Total Bilirubin (0.2-1.3) mg/dL AST (17-59) U/L ALT (4-49) U/L Alkaline Phosphatase (38-126) U/L Ammonia (<30) umol/L Creatine Kinase (55-170) U/L Troponin I <0.012 (0.000-0.034) ng/mL NT-Pro-B Natriuret Pep 299 pg/mL Total Protein (6.3-8.2) g/dL Albumin (3.5-5.0) g/dL Lipase (23-300) U/L TSH (0.465-4.680) mIU/L Free T4 (0.78-2.19) ng/dL Serum Alcohol mg/dL - EKG Data -: EKG Interpreted by Me EKG shows normal: sinus rhythm EKG Comments: Says bradycardia 56. Interval 162 QRS 86 QT since QTC 470/455 - Radiology Data Radiology results: report reviewed (I did review the imaging and reports no acute findings.), image reviewed Disposition Clinical Impression: Delirium due to general medical condition, Encephalopathy acute, Frequent falls, History of alcohol consumption Disposition: ADMITTED IP TO THIS [facility] Condition: Fair Referrals: Aries Ma MD [Primary Care Provider] - 1-2 days
[2020-10-15 15:54] LABS: Basophils % (A) 1 %; Eosinophils # (A) 0.1 k/uL (0-0.7); Eosinophils % (A) 3 %; HCT 42.5 % (39.0-53.0); HGB 14.1 gm/dL (13.0-17.5); Lymphocytes % (A) 23 %; MCH 32.9 pg (25.0-35.0); MCHC 33.2 g/dL (31.0-37.0); MCV 99.2 fL (80.0-100.0); Macrocytosis Slight; Mean Platelet Volume 7.8; Monocytes # (A) 0.4 k/uL (0-1.0); Monocytes % (A) 8 %; Neutrophils # (A) 2.6 k/uL (1.3-7.7); Neutrophils % (A) 63 %; Platelet Count 115 k/uL (150-450); RBC 4.28 m/uL (4.30-5.90); WBC 4.1 k/uL (3.8-10.6)
[2020-10-15 16:03] LABS: ALT 26 U/L (4-49); AST 40 U/L (17-59); African American GFR (CKD) >90 (>60 ml/min/1.73 sqM); Albumin 4.1 g/dL (3.5-5.0); Alcohol <10 mg/dL; Alkaline Phosphatase 74 U/L (38-126); Anion Gap 9 mmol/L; Blood Urea Nitrogen 11 mg/dL (9-20); Carbon Dioxide 27 mmol/L (22-30); Chloride 107 mmol/L (98-107); Creatine Kinase 127 U/L (55-170); Glucose 134 mg/dL (74-99); Lipase 57 U/L (23-300); Magnesium 1.6 mg/dL (1.6-2.3); Non-African American GFR(CKD) >90 (>60 ml/min/1.73 sqM); Potassium 3.9 mmol/L (3.5-5.1); Sodium 143 mmol/L (137-145); Total Bilirubin 0.8 mg/dL (0.2-1.3); Total Protein 6.8 g/dL (6.3-8.2)
--- NOTE | 2020-10-15 16:20 | XR ---
EXAMINATION TYPE: XR chest 2V DATE OF EXAM: 10/15/2020 COMPARISON: NONE TECHNIQUE: PA and lateral views submitted. HISTORY: Altered mental status FINDINGS: The lungs are clear and there is no pneumothorax, pleural effusion, or focal pneumonia. Heart size normal. No overt failure. Hyperinflation suggests COPD. Subcutaneous implanted device suspected. IMPRESSION: 1. No acute process.
--- NOTE | 2020-10-15 17:44 | CT ---
EXAMINATION TYPE: CT brain cspine wo con DATE OF EXAM: 10/15/2020 COMPARISON: CT brain 12/23/2019 HISTORY: Fall with Right frontal injury. Confusion and weakness per patient family. CT DLP: 1391.9 mGycm Automated exposure control for dose reduction was used. There is some cerebral cortical atrophy. There is hypodensity in the white matter both anterior inter nal capsule. There is no mass effect nor midline shift. There is no evidence of intracranial hemorrha ge. There is anterior thalamic symmetric calcification. Cervical vertebra have normal alignment. Disc spaces are fairly normal. Posterior elements are intact . Facet joints are intact. Skull base is intact. Prevertebral soft tissues appear intact. IMPRESSION: Negative CT scan of the cervical spine. No fracture. Cerebral atrophy and chronic white matter changes. No acute intracranial abnormality. Brain not macario ed compared to old exam.
[2020-10-15 19:17] LABS: T4, Free (Free Thyroxine) 0.48 ng/dL (0.78-2.19)
[2020-10-15] MEDS ORDERED: NALOXONE 0.4 MG/ML 1 ML VIAL IV PRN (19:46)
[2020-10-15] MEDS: SODIUM CHLORIDE 0.9% 1,000 ML IV SCH (20:00)
[2020-10-15 21:37] LABS: Amphetamine Screen,Urine Not Detected (NotDetected); Barbiturate Screen,Urine Not Detected (NotDetected); Benzodiazepines Screen,Urine Detected (NotDetected); Cocaine Screen,Urine Not Detected (NotDetected); Methadone Screen, Urine Not Detected (NotDetected); Opiate Screen,Urine Not Detected (NotDetected); Oxycodone Screen, Urine Not Detected (NotDetected); Phencyclidine Screen,Urine Not Detected (NotDetected); Tricyclic Antidepressant,Urine Not Detected (NotDetected); Urn Cannabinoid Scrn Not Detected (NotDetected)
[2020-10-15] MEDS: METOPROLOL SUCCINATE (ER) 25 MG TAB.ER.24H PO SCH (22:57)
[2020-10-16 02:23] LABS: Glucose,Whole Blood 80 mg/dL (75-99)
[2020-10-16] MEDS: SODIUM CHLORIDE 0.9% 1,000 ML IV SCH ×3 (03:42→20:00)
[2020-10-16] MEDS: LEVOTHYROXINE 100 MCG TAB PO SCH (06:40)
[2020-10-16 06:41] LABS: Glucose,Whole Blood 77 mg/dL (75-99)
[2020-10-16] MEDS: ATORVASTATIN 10 MG TAB PO SCH (08:57)
[2020-10-16] MEDS: METOPROLOL SUCCINATE (ER) 25 MG TAB.ER.24H PO SCH ×2 (08:57→21:40)
[2020-10-16] MEDS: allopurinoL 100 MG TAB PO SCH (08:57)
[2020-10-16] MEDS: FLUoxetine HCL 20 MG CAP PO SCH (08:57)
[2020-10-16] MEDS: CHOLECALCIFEROL 25 MCG (1000 IU) TABLET PO SCH (09:01)
[2020-10-16] MEDS ORDERED: LACOSAMIDE 50 MG TABLET PO SCH ×2 (11:30→21:00)
[2020-10-16 11:37] LABS: Glucose,Whole Blood 70 mg/dL (75-99)
--- NOTE | 2020-10-16 11:39 | P.HPIM ---
History of Present Illness H&P Date: 10/16/20 Marco Antonio South, is a 50 year-old male who presented to [facility] emergency room with a chief complaint of confusion patient stated that he fell twice in the last 2 days and hit his head, patient has a known history of seizure disorder and is maintained on Vimpat however he stated that he stopped taking Vimpat few days ago he was drinking alcohol for several days and subsequently he was confused and having falls. He was evaluated in the emergency room vital examination on presentation reveals a temperature of 97.4 pulse 73 respiration 16 blood pressure 139/87 pulse ox 92% on room air laboratory data revealed a white blood count of 4.1 hemoglobin 14.1 platelet count 1:15 sodium 143 potassium 3.9 chloride 107 CO2 27 BUN 11 creatinine 0.71 TSH was 5.35 computed tomography scan of the head and cervical spine was done in the emergency room and revealed cerebral atrophy and chronic white matter changes no acute intracranial abnormality no cervical spine abnormality EKG reve aled sinus bradycardia otherwise normal EKG Past Medical History Past Medical History: Chest Pain / Angina, CVA/TIA, Hyperlipidemia, Hypertension, Seizure Disorder, Thyroid Disorder Additional Past Medical History / Comment(s): States TIA from xrays- no deficits, v-tach, 2 seizures in 03/2016 - then 1 at home , LAST SEIZURE IN 2018 , gout. History of Any Multi-Drug Resistant Organisms: None Reported Past Surgical History: Cardiac Ablation, Heart Catheterization Additional Past Surgical History / Comment(s): Tilt table test, stress test 2017, heart cath 2017. Past Anesthesia/Blood Transfusion Reactions: No Reported Reaction Additional Past Anesthesia/Blood Transfusion Reaction / Comment(s): Never had g eneral anesthesia/transfusions. Past Psychological History: Anxiety, Depression, Panic Disorder Smoking Status: Never smoker Past Alcohol Use History: Abuse Additional Past Alcohol Use History / Comment(s): States he drinks maybe 4 drinks/day. Past Drug Use History: Prescription Drug Abuse - Past Family History Mother History Unknown: Yes Family Medical History: No Reported History Additional Family Medical History / Comment(s): MS Father History Unknown: Yes Additional Family Medical History / Comment(s): BREATHING PROBLEMS Medications and Allergies Home Medications Medication Instructions Recorded Confirmed Type FLUoxetine HCL [PROzac] 40 mg PO DAILY #30 capsule 06/21/18 10/15/20 Rx allopurinoL [Zyloprim] 100 mg PO DAILY #30 tab 06/21/18 10/15/20 Rx Cholecalciferol (Vitamin D3) 50 mcg PO DAILY 08/20/18 10/15/20 History [Vitamin D3] Metoprolol Succinate [Toprol XL] 25 mg PO BID 12/24/19 10/15/20 History clonazePAM [KlonoPIN] 0.5 mg PO DAILY@0900,1400 12/24/19 10/15/20 History clonazePAM [KlonoPIN] 1 mg PO HS 12/24/19 10/15/20 History lisinopriL [Zestril] 2.5 mg PO DAILY 12/24/19 10/15/20 History Baclofen 10 mg PO BID PRN 08/30/20 10/15/20 History Levothyroxine Sodium 100 mcg PO DAILY 10/15/20 10/15/20 History Rosuvastatin Calcium [Crestor] 5 mg PO DAILY 10/15/20 10/15/20 History Allergies Allergy/AdvReac Type Severity Reaction Status Date / Time amoxicillin Allergy Rash/Hives Verified 10/15/20 16:41 Sulfa (Sulfonamide Allergy Rash/Hives Verified 10/15/20 16:41 Antibiotics) Physical Exam Vitals: Vital Signs Temp Pulse Pulse Resp BP BP Pulse Ox 10/16/20 04:45 98.4 F 86 17 158/86 96 10/15/20 23:00 97.8 F 84 16 150/83 97 10/15/20 21:30 98 F 96 16 121/71 97 10/15/20 20:15 98.0 F 97 16 145/61 97 10/15/20 19:00 97 17 150/71 98 10/15/20 18:01 98.0 F 55 L 16 105/64 98 10/15/20 17:01 58 L 16 103/60 98 10/15/20 16:01 56 L 18 110/65 98 10/15/20 14:56 97.4 F L 73 16 139/87 92 L Intake and Output 10/15/20 10/16/20 10/16/20 22:59 06:59 14:59 Output Total 100 Balance -100 Output: Urine 100 Other: Voiding Method Urinal Urinal Diaper Diaper Incontinent Incontinent # Voids 1 Weight 51.71 kg 51.3 kg In general patient is alert and oriented ?-3 in no distress HEENT head normocephalic and atraumatic Neck is supple no JVD no goiter no lymphadenopathy no carotid bruit Chest examination is clear to auscultation no crackles no wheezing Cardiac exam reveals regular heart sounds S1 and S2 no gallops no murmurs Abdomen is soft nontender no organomegaly with normal bowel sounds Extremity exam reveals no edema no cyanosis or clubbing Neurological examination reveals no gross focal deficits Results CBC & Chem 7: 10/15/20 15:37 10/15/20 15:37 Labs: Abnormal Lab Results - Last 24 Hours (Table) 10/15/20 10/15/20 10/15/20 Range/Units 15:28 15:37 15:37 RBC 4.28 L (4.30-5.90) m/uL Plt Count 115 L (150-450) k/uL Glucose 134 H (74-99) mg/dL TSH 5.350 H (0.465-4.680) mIU/L Free T4 0.48 L (0.78-2.19) ng/dL U Benzodiazepines Scrn Detected H (NotDetected) Thrombosis Risk Factor Assmnt - Choose All That Apply Each Factor Represents 1 point: Medical pt on bed rest Thrombosis Risk Factor Assessment Total Risk Factor Score: 1 Thrombosis Risk Factor Assessment Level: Low Risk Assessment and Plan Plan: 1. 2 episodes of fall with at least one episode of loss of consciousness with head trauma, possible seizure activity, patient was maintained on Vimpat 100 mg twice daily however he stated that he has not taken that for several days, Vimpat was restarted neurology consultation requested 2. Head trauma no evidence of intracranial bleeding on computed tomography scan 3. Fall with loss of consciousness possible seizure activity, however other causes of syncope will be evaluated echocardiogram and cardiology consultation are requested 4. Recent alcohol intake, alcohol level was less then 10 in the emergency room, will monitor for any evidence of delirium tremens 5. Underlying history of hypothyroidism patient was maintained on Synthroid 100 g daily , TSH is elevated however it does not appear that patient was taking his medication on a regular basis, will continue with the same dose at this time patient was counseled extensively in regard to taking medication on a regular basis. 6. Underlying history of hyperlipidemia maintained on Crestor 7. Underlying history of depression maintained on Prozac At this time medication and labs were reviewed Neurology consultation and cardiology consultation were requested Vimpat was restarted Will follow closely
[2020-10-16 11:57] LABS: Glucose,Whole Blood 81 mg/dL (75-99)
--- NOTE | 2020-10-16 12:07 | P.CNNES ---
History of Present Illness Consult date: 10/16/20 Requesting physician: Austin Auguste Reason for Consult: encephalopathy with histor of seizure History of Present Illness: This is a 50-year-old gentleman with medical history of seizure disorder, cardiomyopathy, status post cardiac ablation in which he had a loop recorder and was brought to the emergency department on 10/15/2020 for confusion. History is obtained from patient mother (Lily over phone) since patient was a poor historian. According to patient he is been followed in the last 1 week and hitting his head and stated that that before the episodes he's been feeling dizzy but states that he's passing out with these episodes. Upon speaking with his mother she stated that he has not been passing out and no jerk and if any of the extremities. She did state that the patient has been falling been feeling dizzy been acting confused. Difficulty operating the microwave which he knows how to do. She said that his seizures in the past with jerking of all extremities but this time around he didn't have that and the it's not typical for his seizures. Patient is on Vimpat 100 1 tab bid and mother stated he took the medications yesterday but not sure if he missed other doses prior to yesterday. He is following-up with Dr. Sow for neurological management. The patient drinks alcohol and has not drank in 2 days. He drinks two of 25oz of beer/day and has not been drinking Per the ED note the per the patient's mother patient does not have history of delirium tremens or alcohol withdrawal problems in the past. His medication is Klonopin 1 mg daily at bedtime, 0.5 mg daily and it's at its 9:00 and 4000, Crestor 5 mg, metoprolol, Synthroid, Prozac, baclofen 10 mg 1 tablet twice a day when necessary, lisinopril. Patient was evaluated by Dr. Chakraborty on 12/25/2019 for altered mental status and he felt it was due to heat exhaustion, possible dehydration and possible medication side-effect (doubled on Baclofen). He recommended for the patient to continue Vimpat 100 mg 1 tablet twice a day and if he has any breakthrough seizures to increase to 150 one tablet twice a day. Upon reviewing the patient's medical record the patient had 3 EEGs in our in 2018, 2017 and 2014 and overall reported normal. Workup in the hospital consisted of: Initial vital signs: Blood pressure 139/87, heart rate of 73, respiratory of 16, temperature of 97.4 Fahrenheit oral and pulse ox of 92% room air. CT of the head is reported as cerebral atrophy and chronic white matter changes. No acute intracranial abnormality. The brain not change compared to old exam. CT cervical spine was reported as negative CT scan of the cervical spine. No fracture. Patient's platelets were were 115 which is considered low otherwise his CBC was within normal limits. Initial loss serum glucose 134. Ammonia level less than 9 and the AST and ALT were normal. TSH is 5.35 which is high and a free T4 is 0.48 which is low this is suggestive hypothyroidism. Otherwise the rest of the basic the electrolyte was within the normal limits. Also the calcium was 9.0, magnesium is 1.6 which are considerable normal Toxicology screen is positive for benzo. Serum alcohol was less than 10. SARS COV2: Not detected. Review of Systems Review of system: The 12 point system was reviewed and apparent positive and negative per HPI. Past Medical History Past Medical History: Chest Pain / Angina, CVA/TIA, Hyperlipidemia, Hypertension , Seizure Disorder, Thyroid Disorder Additional Past Medical History / Comment(s): States TIA from xrays- no deficits, v-tach, 2 seizures in 03/2016 - then 1 at home , LAST SEIZURE IN 2018 , gout. History of Any Multi-Drug Resistant Organisms: None Reported Past Surgical History: Cardiac Ablation, Heart Catheterization Additional Past Surgical History / Comment(s): Tilt table test, stress test 201 7, heart cath 2017. Past Anesthesia/Blood Transfusion Reactions: No Reported Reaction Additional Past Anesthesia/Blood Transfusion Reaction / Comment(s): Never had general anesthesia/transfusions. Past Psychological History: Anxiety, Depression, Panic Disorder Smoking Status: Never smoker Past Alcohol Use History: Abuse Additional Past Alcohol Use History / Comment(s): States he drinks maybe 4 drinks/day. Past Drug Use History: Prescription Drug Abuse - Past Family History Mother History Unknown: Yes Family Medical History: No Reported History Additional Family Medical History / Comment(s): MS Father History Unknown: Yes Additional Family Medical History / Comment(s): BREATHING PROBLEMS Medications and Allergies Home Medications Medication Instructions Recorded Confirmed Type FLUoxetine HCL [PROzac] 40 mg PO DAILY #30 capsule 06/21/18 10/15/20 Rx allopurinoL [Zyloprim] 100 mg PO DAILY #30 tab 06/21/18 10/15/20 Rx Cholecalciferol (Vitamin D3) 50 mcg PO DAILY 08/20/18 10/15/20 History [Vitamin D3] Metoprolol Succinate [Toprol XL] 25 mg PO BID 12/24/19 10/15/20 History clonazePAM [KlonoPIN] 0.5 mg PO DAILY@0900,1400 12/24/19 10/15/20 History clonazePAM [KlonoPIN] 1 mg PO HS 12/24/19 10/15/20 History lisinopriL [Zestril] 2.5 mg PO DAILY 12/24/19 10/15/20 History Baclofen 10 mg PO BID PRN 08/30/20 10/15/20 History Levothyroxine Sodium 100 mcg PO DAILY 10/15/20 10/15/20 History Rosuvastatin Calcium [Crestor] 5 mg PO DAILY 10/15/20 10/15/20 History Allergies Allergy/AdvReac Type Severity Reaction Status Date / Time amoxicillin Allergy Rash/Hives Verified 10/15/20 16:41 Sulfa (Sulfonamide Allergy Rash/Hives Verified 10/15/20 16:41 Antibiotics) Physical Examination - Vital Signs Vital Signs: Vital Signs Temp Pulse Pulse Resp BP BP Pulse Ox 10/16/20 04:45 98.4 F 86 17 158/86 96 10/15/20 23:00 97.8 F 84 16 150/83 97 10/15/20 21:30 98 F 96 16 121/71 97 10/15/20 20:15 98.0 F 97 16 145/61 97 10/15/20 19:00 97 17 150/71 98 10/15/20 18:01 98.0 F 55 L 16 105/64 98 10/15/20 17:01 58 L 16 103/60 98 10/15/20 16:01 56 L 18 110/65 98 10/15/20 14:56 97.4 F L 73 16 139/87 92 L Intake and Output 10/15/20 10/16/20 10/16/20 22:59 06:59 14:59 Intake Total 240 Output Total 100 Balance -100 240 Intake: Oral 240 Output: Urine 100 Other: Voiding Method Urinal Urinal Diaper Diaper Incontinent Incontinent # Voids 1 Weight 51.71 kg 51.3 kg GENERAL: The patient is lying in bed and is not in acute distress. HENT: Has a bruise over the right side of head as result of fall (right parietal region). CHEST: The heart rate is regular rate rhythm. No murmurs to auscultation. No carotid bruit bilaterally. LUNG: Clear to auscultation bilaterally no wheezing noted throughout. Not labored breathing. ABDOMEN/GI: Bowel sounds present in all 4 quadrants. No tenderness to palpation throughout. Psych: Is tangential. NEUROLOGICAL: Higher mental function: The patient is awake, alert, oriented to self, place and time. Patient is following commands. No aphasia and no neglect. Cranial nerves: The pupils are round, equal and reactive to light and accommodation. Visual french are full to confrontation throughout. Extraocular movement is intact no nystagmus is noted. Facial sensation is normal to touch throughout. The facial strength is normal throughout. Hearing is normal bilaterally to hand rub. Tongue is midline and moved [id number] without any d ifficulty. No dysarthria is noted. Shoulder shrug is normal bilaterally. Motor: Gait is attempted and patient was feeling dizzy after taking two step but was not swaying towards one side or other and gait examination had to be aborted. The strength is 5 over 5 throughout. Normal tone and bulk. Cerebellum: Normal finger bilaterally. Sensation: Sensation is normal to touch throughout. Reflexes (right/left): 2+ throughout. Plantars are downgoing bilaterally. Results - Laboratory Findings CBC and BMP: 10/15/20 15:37 10/15/20 15:37 Abnormal Lab Findings: Abnormal Labs 10/15/20 10/15/20 10/15/20 15:28 15:37 15:37 RBC 4.28 L Plt Count 115 L Glucose 134 H TSH 5.350 H Free T4 0.48 L U Benzodiazepines Scrn Detected H Assessment and Plan Assessment: * Episode of dizziness, altered mental status and falls: No sure exact etiology. Rule out orthostatic hypotension. Cannot rule out seizure (but not his typical seizure). Rule out cardiac in etiology (especially with history of cardiomyopathy). He does not have hx of alcohol withdrawl but that cannot be excluded on this presentation especially since he drinks about 2 of 25 oz of beer daily and has not been drinking in last couple days with alcohol level <10. * Seizure disorder. * Alcohol use ( * Hypothyroidism (with abnormal TSH and T4 on this visit). * Cardiomyopathy * hx of status cardiac ablation Plan: CT of the head is reported as cerebral atrophy and chronic white matter changes. No acute intracranial abnormality. The brain not change compared to old exam. CT cervical spine was reported as negative CT scan of the cervical spine. No fracture. Ammonia level less than 9 and the AST and ALT were normal. TSH is 5.35 which is high and a free T4 is 0.48 which is low this is suggestive hypothyroidism. Otherwise the rest of the basic the electrolyte was within the normal limits. Toxicology screen is positive for benzo. Serum alcohol was less than 10. I consulted physical therapy and occupation therapy because of his falls. I increased Vimpat from 100mg 1 tab bid to 150mg 1 tab bid. An EEG is not warranted since the patient is known to have history of seizure and had 3 EEG in our facility (all three were reported as normal). Ordered orthostatic vitals I ordered a 2-D echo especially with history of heart problems in the past. I ordered Vitamin B12 and folate level. Placed the patient on Thiamine 100mg daily. Continue seizure precaution. He is on the fall precaution. Place on continous cardiac monitoring. Will defer consideration of CIWA protocol to primary team. Will defer the rest of the medical management to the primary team. The plan was discussed with the patient mother (Lily) via phone and his nurse. Thank you for the consultation. Maxwell Hooks M.D. Neuro-hospitalist Time with Patient: Greater than 30
[2020-10-16] MEDS: THIAMINE 100 MG TAB PO SCH (12:59)
[2020-10-16] MEDS: BACLOFEN 10 MG TAB PO PRN (12:59)
[2020-10-16 16:41] LABS: Glucose,Whole Blood 79 mg/dL (75-99)
[2020-10-16] MEDS: LACOSAMIDE 50 MG TABLET PO SCH (17:55)
[2020-10-16 20:04] LABS: Glucose,Whole Blood 107 mg/dL (75-99)
[2020-10-16] MEDS: OLANZapine 5 MG TAB PO SCH (21:39)
--- NOTE | 2020-10-17 00:24 | CONS ---
CONSULTATION DATE OF SERVICE: 10/16/2020 PURPOSE FOR CONSULTATION: Evaluate for altered mental status and hallucinations. HISTORY OF PRESENTING ILLNESS: The patient is a 50-year-old male. He was admitted to the medical floor for confusion, having fallen 2 times in the last 2 days, including hitting the right zoroastrian area of his head. He has a known seizure disorder. He had been drinking alcohol and reports drinking 2-4 "tall boys" about 5 days a week. His alcohol level on admission on 10/15/2020 at 3:37 pm was 0. The patient reported significant long-term issues with his mental health problems. He indicated that his last psychiatric hospitalization was about 10 years ago for a suicide attempt by overdose. He acknowledges that he has some problems with anxiety, panic attacks and depression. He also notes that he has auditory and visual hallucinations. He notes at home medications prior to admission included Prozac 40 mg a day and Klonopin 0.5 mg twice a day, 1 mg at bedtime. He indicated that he has been on these medications for an extended period of time. For the most part, he takes his medications consistently. He is not involved currently in the mental health followup. He says that he has not had significant issues with depression or anxiety issues and tends to minimize any problems that he has been having. He was somewhat vague about the impact of hallucinations. He is sometimes at nighttime he will hear voices. He may also hear a door slamming or people outside his room or house. He had been living with his sister. The situation with that is somewhat unclear, though apparently he has moved out of his sister's and of late and is living with his parents. He suggested that he goes back and forth in this living situation. He said that other than the alcohol,he has not used any other abusive substances. He notes that he has been applying for disability. He does not work overall. He was somewhat vague about his current social and community situation. He stated that he tolerates his psychotropic medication and did not note any problems he was having with Prozac or Klonopin. MENTAL STATUS EXAM: Patient was lying in bed with the head slightly up. He gave fairly good eye contact. He answered questions with brief responses. For the most part, his thoughts were clear and coherent. He did not say a lot. He was somewhat spontaneous and interactive. His affect was blunted. He smiled some during the interview. His mood was reserved. He seemed to be somewhat anxious still, though did not appear to be significantly distressed. He described auditory and visual hallucinations. He denied any thoughts of harm to self or others. On cognitive exam, when I asked him the day of the week he 1st said Sunday and then he said . When asked the date, he said it was September 16, though then that was able to say it was October. He stated it was 2020. He said Sarthak was the President and the [employer] was . He knew the previous President. He was able to give me some details of recent events that was consistent with what is documented in the medical record. ASSESSMENT: This 50-year-old male is diagnosed with psychosis. He may have underlying depression. It is unclear to what extent alcohol may fit in the picture of his mood or thought disorder. It is noteworthy that the mix of alcohol, even at the level that he is describing, along with Klonopin is not a very good choice for long-term care or persistent with mental health issues. At this point, I agree with continuing the Prozac 40 mg a day. We will start the patient on Zyprexa 5 mg at bedtime. The aim of Zyprexa is to help augment his antidepressant, and to help treat psychotic symptoms of hallucinations. It will be helpful to get further background information possibly from the patient's sister or parents to help guide treatment and especially discharge planning. We will continue to follow. MMODL / IJN: [id number] /
[2020-10-17] MEDS: LACOSAMIDE 50 MG TABLET PO SCH ×3 (01:18→20:40)
[2020-10-17] MEDS: SODIUM CHLORIDE 0.9% 1,000 ML IV SCH ×3 (02:40→19:43)
[2020-10-17 03:40] LABS: Glucose,Whole Blood 71 mg/dL (75-99)
[2020-10-17 06:05] LABS: Glucose,Whole Blood 66 mg/dL (75-99)
[2020-10-17 06:18] LABS: Glucose,Whole Blood 61 mg/dL (75-99)
[2020-10-17 06:31] LABS: Glucose,Whole Blood 108 mg/dL (75-99)
[2020-10-17] MEDS: LEVOTHYROXINE 100 MCG TAB PO SCH (06:45)
[2020-10-17 07:35] LABS: Basophils % (A) 1 %; Eosinophils # (A) 0.2 k/uL (0-0.7); Eosinophils % (A) 3 %; HGB 14.3 gm/dL (13.0-17.5); Lymphocytes % (A) 32 %; MCHC 31.7 g/dL (31.0-37.0); MCV 101.2 fL (80.0-100.0); Macrocytosis Slight; Monocytes # (A) 0.6 k/uL (0-1.0); Monocytes % (A) 9 %; Neutrophils # (A) 3.4 k/uL (1.3-7.7); Neutrophils % (A) 53 %; Platelet Count 118 k/uL (150-450); RBC 4.45 m/uL (4.30-5.90); RDW 15.4 % (11.5-15.5); WBC 6.4 k/uL (3.8-10.6)
[2020-10-17 07:48] LABS: ALT 22 U/L (4-49); AST 37 U/L (17-59); African American GFR (CKD) >90 (>60 ml/min/1.73 sqM); Albumin 3.7 g/dL (3.5-5.0); Alkaline Phosphatase 63 U/L (38-126); Anion Gap 5 mmol/L; Blood Urea Nitrogen 5 mg/dL (9-20); Calcium 8.6 mg/dL (8.4-10.2); Carbon Dioxide 30 mmol/L (22-30); Chloride 109 mmol/L (98-107); GGT 41 U/L (15-73); Glucose 83 mg/dL (74-99); Non-African American GFR(CKD) >90 (>60 ml/min/1.73 sqM); Potassium 3.6 mmol/L (3.5-5.1); Sodium 144 mmol/L (137-145); Total Bilirubin 0.6 mg/dL (0.2-1.3); Total Protein 6.6 g/dL (6.3-8.2)
--- NOTE | 2020-10-17 08:12 | ECHOF ---
Referral Reason:Syncope MEASUREMENTS -------- HEIGHT: 167.6 cm WEIGHT: 51.3 kg BP: RVIDd: 3.0 cm (< 3.3) IVSd: 0.7 cm (0.6 - 1.1) LVIDd: 4.5 cm (3.9 - 5.3) LVPWd: 0.8 cm (0.6 - 1.1) IVSs: 1.3 cm LVIDs: 3.4 cm LVPWs: 1.1 cm Ao Diam: 4.1 cm (2.0 - 3.7) AV Cusp: 2.0 cm (1.5 - 2.6) LA Diam: 2.6 cm (2.7 - 3.8) MV EXCURSION: 11.800 mm (> 18.000) MV EF SLOPE: 71 mm/s (70 - 150) EPSS: 1.4 cm MV E Charbel: 1.17 m/s MV DecT: 248 ms MV A Charbel: 0.67 m/s MV E/A Ratio: 1.75 AR PHT: 607 ms RAP: 5.00 mmHg RVSP: 21.87 mmHg FINDINGS -------- This was a technically difficult study with suboptimal views. The left ventricular size is normal. Left ventricular wall thickness is normal. Overall left vent ricular systolic function is low-normal with, an EF between 50 - 55 %. The right ventricle is normal in size. The left atrial size is normal. The right atrial size is normal. Lumason used The aortic valve is trileaflet and appears structurally normal. The mitral valve is normal. The mitral valve leaflets are mildly thickened. There is trace mitral regurgitation. The tricuspid valve appears structurally normal. Mild tricuspid regurgitation present. Right vent ricular systolic pressure is normal at < 35 mmHg. There is no pulmonic regurgitation present. The aortic root size is normal. IVC Not well visulized. There is no pericardial effusion. CONCLUSIONS -------- 1. The left ventricular size is normal. 2. Left ventricular wall thickness is normal. 3. Overall left ventricular systolic function is low-normal with, an EF between 50 - 55 %. 4. The mitral valve leaflets are mildly thickened. 5. There is trace mitral regurgitation. 6. Mild tricuspid regurgitation present. 7. There is no pericardial effusion. GEOSPATIAL ENGINEER: Jailyn Corona [facility]
[2020-10-17] MEDS: METOPROLOL SUCCINATE (ER) 25 MG TAB.ER.24H PO SCH ×2 (08:54→20:40)
[2020-10-17] MEDS: ATORVASTATIN 10 MG TAB PO SCH (08:54)
[2020-10-17] MEDS: CHOLECALCIFEROL 25 MCG (1000 IU) TABLET PO SCH (08:54)
[2020-10-17] MEDS: FLUoxetine HCL 20 MG CAP PO SCH (08:55)
[2020-10-17] MEDS: allopurinoL 100 MG TAB PO SCH (08:55)
[2020-10-17] MEDS: THIAMINE 100 MG TAB PO SCH ×2 (08:55→18:09)
[2020-10-17] MEDS ORDERED: LORazepam 2 MG/ML INJ IV PRN ×2 (10:59)
--- NOTE | 2020-10-17 11:12 | P.PN ---
Subjective Progress Note Date: 10/17/20 Marco Antonio South, is a 50 year-old male who presented to [facility] emergency room with a chief complaint of confusion patient stated that he fell twice in the last 2 days and hit his head, patient has a known history of seizure disorder and is maintained on Vimpat however he stated that he stopped taking Vimpat few days ago he was drinking alcohol for several days and subsequently he was confused and having falls. He was evaluated in the emergency room vital examination on presentation reveals a temperature of 97.4 pulse 73 respiration 16 blood pressure 139/87 pulse ox 92% on room air laboratory data revealed a white blood count of 4.1 hemoglobin 14.1 platelet count 1:15 sodium 143 potassium 3.9 chloride 107 CO2 27 BUN 11 creatinine 0.71 TSH was 5.35 computed tomography scan of the head and cervical spine was done in the emergency room and revealed cerebral atrophy and chronic white matter changes no acute intracranial abnormality no cervical spine abnormality EKG revealed sinus bradycardia otherwise normal EKG. On 1Patient was seen and examined on the medical floor, he is alert and oriented x 3 in no distress, he denies any complaints there is no fever or chi lls no headache or dizziness no chest pain no shortness of breath no palpitation no cough no nausea or vomiting no abdominal pain no diarrhea no blood in the stools no burning with urination no frequency or urgency and no hematuria, there is no weakness or numbness in any of the extremities no change in vision speech or gait. Patient is starting to have some hand tremor, will start CIWA protocol, and continue to monitor closely Objective - Vital Signs Vital signs: Vital Signs Temp 97.8 F 10/17/20 04:05 Pulse 51 L 10/17/20 04:05 Resp 16 10/17/20 04:05 BP 140/89 10/17/20 04:05 Pulse Ox 98 10/17/20 04:05 Intake & Output 10/16/20 10/17/20 10/17/20 18:59 06:59 18:59 Intake Total 580 240 Output Total 012 265 2984 Balance 130 -800 -760 Weight 84 kg Intake: Oral 580 240 Output: Urine 086 056 0133 Other: Voiding Method Urinal Urinal Diaper Diaper Incontinent Incontinent - Exam In general patient is alert and oriented ?-3 in no distress HEENT head normocephalic and atraumatic Neck is supple no JVD no goiter no lymphadenopathy no carotid bruit Chest examination is clear to auscultation no crackles no wheezing Cardiac exam reveals regular heart sounds S1 and S2 no gallops no murmurs Abdomen is soft nontender no organomegaly with normal bowel sounds Extremity exam reveals no edema no cyanosis or clubbing Neurological examination reveals no gross focal deficits - Labs CBC & Chem 7: 10/17/20 07:21 10/17/20 07:21 Labs: Abnormal Lab Results - Last 24 Hours (Table) 10/16/20 10/16/20 10/17/20 Range/Units 11:36 20:02 03:38 MCV (80.0-100.0) fL Plt Count (150-450) k/uL Chloride (98-107) mmol/L BUN (9-20) mg/dL POC Glucose (mg/dL) 70 L 107 H 71 L (75-99) mg/dL 10/17/20 10/17/20 10/17/20 Range/Units 06:03 06:16 06:29 MCV (80.0-100.0) fL Plt Count (150-450) k/uL Chloride (98-107) mmol/L BUN (9-20) mg/dL POC Glucose (mg/dL) 66 L 61 L 108 H (75-99) mg/dL 10/17/20 10/17/20 Range/Units 07:21 07:21 MCV 101.2 H (80.0-100.0) fL Plt Count 118 L (150-450) k/uL Chloride 109 H (98-107) mmol/L BUN 5 L (9-20) mg/dL POC Glucose (mg/dL) (75-99) mg/dL Assessment and Plan Plan: 1. 2 episodes of fall with at least one episode of loss of consciousness with head trauma, possible seizure activity, patient was maintained on Vimpat 100 mg twice daily however he stated that he has not taken that for several days, Vimpat was restarted neurology consultation requested 2. Head trauma no evidence of intracranial bleeding on computed tomography scan 3. Fall with loss of consciousness possible seizure activity, however other causes of syncope will be evaluated echocardiogram and cardiology consultation are requested 4. Recent alcohol intake, alcohol level was less then 10 in the emergency room, will monitor for any evidence of delirium tremens 5. Underlying history of hypothyroidism patient was maintained on Synthroid 100 g daily , TSH is elevated however it does not appear that patient was taking his medication on a regular basis, will continue with the same dose at this time patient was counseled extensively in regard to taking medication on a regular basis. 6. Underlying history of hyperlipidemia maintained on Crestor 7. Underlying history of depression maintained on Prozac At this time medication and labs were reviewed Neurology consultation and cardiology consultation were requested Vimpat was restarted Will follow closely
[2020-10-17 11:39] LABS: Glucose,Whole Blood 76 mg/dL (75-99)
[2020-10-17 12:20] LABS: Folate, Serum 13.3 ng/mL
--- NOTE | 2020-10-17 14:38 | P.PN ---
Subjective Progress Note Date: 10/17/20 He was seen at bedside and she is doing well. Denies of any neurological problems. Per the primary team's note is seems that the patient had 2 episodes of fall at least one episode of loss of consciousness with head trauma and the primary team stated that the patient has not taken his medication Vimpat for several days. The patient states that he's been having some falls but cannot tell me for how long. He stated that he drinks 2 beers a day and he takes Klonopin and recently he has been taking baclofen. He denies of any ringing in the ears any hearing loss any visual disturbance denies of any focal weakness. The patient doesn't know why he is falling but he cannot tell me if he is having any symptoms prior to episode or not. He stated that he's been hearing voices the people are talking about him even though it's not to. He did acknowledge that he has missed his Vimpat 2 days prior to presenting the hospital because he felt a bit psychotic. He stated that he was able to take a shower on his own today without any issues. Objective - Vital Signs Vital signs: Vital Signs Temp 98.6 F 10/17/20 08:00 Pulse 66 10/17/20 08:00 Resp 18 10/17/20 08:00 BP 150/93 10/17/20 08:00 Pulse Ox 99 10/17/20 08:00 Intake & Output 10/16/20 10/17/20 10/17/20 18:59 06:59 18:59 Intake Total 580 720 Output Total 375 337 0350 Balance 130 -800 -1305 Weight 84 kg Intake: Oral 580 720 Output: Urine 584 442 0784 Other: Voiding Method Urinal Urinal Urinal Diaper Diaper Diaper Incontinent Incontinent Incontinent - Exam GENERAL: The patient is lying in bed and is not in acute distress. HENT: Has a bruise over the right side of head as result of fall (right parietal region). Psych: Is tangential. NEUROLOGICAL: Higher mental function: The patient is awake, alert, oriented to self, place and time. Patient is following commands. No aphasia and no neglect. Cranial nerves: The pupils are round, equal and reactive to light and accommodation. Visual french are full to confrontation throughout. Extraocular movement is intact no nystagmus is noted. Facial sensation is normal to touch throughout. The facial strength is normal throughout. Hearing is normal bilaterally to hand rub. Tongue is midline and moved [id number] without any difficulty. No dysarthria is noted. Shoulder shrug is normal bilaterally. Motor: Gait is normal with normal arm swings. The strength is 5 over 5 throughout. Normal tone and bulk. Cerebellum: Normal finger bilaterally. Sensation: Sensation is normal to touch throughout. Reflexes (right/left): 2+ throughout. Plantars are downgoing bilaterally. - Labs CBC & Chem 7: 10/17/20 07:21 10/17/20 07:21 Labs: Abnormal Lab Results - Last 24 Hours (Table) 10/16/20 10/17/20 10/17/20 Range/Units 20:02 03:38 06:03 MCV (80.0-100.0) fL Plt Count (150-450) k/uL Chloride (98-107) mmol/L BUN (9-20) mg/dL POC Glucose (mg/dL) 107 H 71 L 66 L (75-99) mg/dL 10/17/20 10/17/20 10/17/20 Range/Units 06:16 06:29 07:21 MCV (80.0-100.0) fL Plt Count (150-450) k/uL Chloride 109 H (98-107) mmol/L BUN 5 L (9-20) mg/dL POC Glucose (mg/dL) 61 L 108 H (75-99) mg/dL 10/17/20 Range/Units 07:21 MCV 101.2 H (80.0-100.0) fL Plt Count 118 L (150-450) k/uL Chloride (98-107) mmol/L BUN (9-20) mg/dL POC Glucose (mg/dL) (75-99) mg/dL Assessment and Plan Assessment: * Recurrent falls. Unsure exact exactly. Possibly medication effect (combination of Klonipin, Baclofen and alcohol). Rule out cardiac in etiology. Today he is walking without any issues. * Few episode of loss of consciousness. Possibly seizure (possibly provoked). He missed last two days of Vimpat. Rule out cardiac in etiology. * Psychosis with auditory hallucination. * Seizure disorder. * Alcohol use (he drinks about 2 of 25 oz of beer daily and has not been drinking in last couple days with alcohol level <10.) * Hypothyroidism (with abnormal TSH and T4 on this visit). * Cardiomyopathy * hx of status cardiac ablation Plan: CT of the head is reported as cerebral atrophy and chronic white matter changes. No acute intracranial abnormality. The brain not change compared to old exam. CT cervical spine was reported as negative CT scan of the cervical spine. No fracture. Ammonia level less than 9 and the AST and ALT were normal. TSH is 5.35 which is high and a free T4 is 0.48 which is low this is suggestive hypothyroidism. Otherwise the rest of the basic the electrolyte was within the normal limits. Toxicology screen is positive for benzo. Serum alcohol was less than 10. Orthostatic vitals is supine his blood pressure of 139/89 with a heart rate 55: Sitting his blood pressure of the 140/89 with a heart rate 58 and standing his blood pressure of 143/89 with a heart rate of 62. Therefore the orthostatics are negative for hypotension. Vitamin B12: 577 (normal) and folate level: 13.3 (normal). 2-D echo was reported as left ventricle wall thickness is normal. Ejection fraction of 50-55%. Left atrium size is normal. Continue Vimpat 150mg 1 tab bid (He was on home dose of Vimpat 100mg 1 tab bid). 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 He had 3 EEG in our facility (all three were reported as normal). Continue Thiamine 100mg daily. I consulted physical therapy and occupation therapy because of his falls. Continue seizure precaution. He is on the fall precaution. Place on continuos cardiac monitoring. Psychiatry is on board for his psychosis. Cardiology is consulted for patient history of cardiomyopathy. On [facility] protocol and will defer management to primary team. Patient denies withdrawl in the past. Patient was notified that he needs to follow-up with a neurologist as outpatient within 1-2 weeks (he stated he has a neurologist but does not recall name). Will defer the rest of the medical management to the primary team. Will follow-up with the patient sporadically. The plan was discussed with the patient's nurse. Dr. Chakraborty will take over neurology coverage starting tomorrow (10/18/00) AM. Maxwell Hooks M.D. Neuro-hospitalist Time with Patient: Less than 30
[2020-10-17 16:34] LABS: Glucose,Whole Blood 93 mg/dL (75-99)
--- NOTE | 2020-10-17 18:57 | P.CRDCN ---
History of Present Illness Consult date: 10/17/20 History of present illness: His is a 50-year-old gentleman who was admitted to the hospital with episodes of confusion and possible falls and possible injury to the head.patient is known to have seizure disorder. Patient also has alcohol abuse. There is history of cardiomyopathy. There is also history that patient had a loop recorder insertion. His EKG on admission showed sinus rhythm and sinus bradycardia. His TSH is slightly high to low free T4. His troponin is within normal limits. His proBNP is within normal limits. Echo Cardigan showed near normal LV function. There is no history of any chest pain. Chest x-ray did not reveal any acute process or CHF. At this point there doesn't seem to be in acute cardiac issue. Mainly dealing with altered mental status with history of seizure disorder. No further cardiac workup at this time. Review of Systems As per the chart Past Medical History Past Medical History: Chest Pain / Angina, CVA/TIA, Hyperlipidemia, Hypertension, Seizure Disorder, Thyroid Disorder Additional Past Medical History / Comment(s): States TIA from xrays- no deficits, v-tach, 2 seizures in 03/2016 - then 1 at home , LAST SEIZURE IN 2018 , gout. History of Any Multi-Drug Resistant Organisms: None Reported Past Surgical History: Cardiac Ablation, Heart Catheterization Additional Past Surgical History / Comment(s): Tilt table test, stress test 2017, heart cath 2017. Past Anesthesia/Blood Transfusion Reactions: No Reported Reaction Additional Past Anesthesia/Blood Transfusion Reaction / Comment(s): Never had general anesthesia/transfusions. Past Psychological History: Anxiety, Depression, Panic Disorder Smoking Status: Never smoker Past Alcohol Use History: Abuse Additional Past Alcohol Use History / Comment(s): States he drinks maybe 4 drinks/day. Past Drug Use History: Prescription Drug Abuse - Past Family History Mother History Unknown: Yes Family Medical History: No Reported History Additional Family Medical History / Comment(s): MS Father History Unknown: Yes Additional Family Medical History / Comment(s): BREATHING PROBLEMS Medications and Allergies Home Medications Medication Instructions Recorded Confirmed Type FLUoxetine HCL [PROzac] 40 mg PO DAILY #30 capsule 06/21/18 10/15/20 Rx allopurinoL [Zyloprim] 100 mg PO DAILY #30 tab 06/21/18 10/15/20 Rx Cholecalciferol (Vitamin D3) 50 mcg PO DAILY 08/20/18 10/15/20 History [Vitamin D3] Metoprolol Succinate [Toprol XL] 25 mg PO BID 12/24/19 10/15/20 History clonazePAM [KlonoPIN] 0.5 mg PO DAILY@0900,1400 12/24/19 10/15/20 History clonazePAM [KlonoPIN] 1 mg PO HS 12/24/19 10/15/20 History lisinopriL [Zestril] 2.5 mg PO DAILY 12/24/19 10/15/20 History Baclofen 10 mg PO BID PRN 08/30/20 10/15/20 History Levothyroxine Sodium 100 mcg PO DAILY 10/15/20 10/15/20 History Rosuvastatin Calcium [Crestor] 5 mg PO DAILY 10/15/20 10/15/20 History Allergies Allergy/AdvReac Type Severity Reaction Status Date / Time amoxicillin Allergy Rash/Hives Verified 10/15/20 16:41 Sulfa (Sulfonamide Allergy Rash/Hives Verified 10/15/20 16:41 Antibiotics) Physical Exam Vitals: Vital Signs Temp Pulse Pulse Pulse Pulse Resp BP 10/17/20 16:00 97.8 F 68 18 139/91 10/17/20 14:00 66 68 62 55 L 18 10/17/20 12:00 62 18 149/94 10/17/20 08:00 98.6 F 66 18 10/17/20 04:05 97.8 F 51 L 58 L 62 55 L 16 140/89 10/17/20 01:00 98.3 F 52 L 16 138/80 10/16/20 21:20 98.6 F 74 16 147/83 BP BP BP Pulse Ox 10/17/20 16:00 99 10/17/20 14:00 10/17/20 12:00 99 10/17/20 08:00 150/93 99 10/17/20 04:05 143/89 139/89 98 10/17/20 01:00 99 10/16/20 21:20 99 Intake and Output 10/17/20 10/17/20 10/17/20 06:59 14:59 22:59 Intake Total 720 0 Output Total 800 2525 Balance -800 -1805 0 Intake: Oral 720 0 Output: Urine 800 2525 Other: Voiding Method Urinal Urinal Diaper Diaper Incontinent Incontinent Weight 84 kg GENERAL EXAM: Patient is alert doesn't appear to be in any acute distress HEENT: Normocephalic. Normal reaction of pupils, equal size, normal range of extraocular motion. No erythema or exudates in the throat. NECK: No masses, no nuchal rigidity. CHEST: No chest wall deformity. LUNGS: [Equal air entry with no crackles or wheeze.] HEART: [S1 and S2 normal with no audible mumurs or gallops. Regular rhythm, femorals equal on both sides..] ABDOMEN: No hepatosplenomegaly, normal bowel sounds, no guarding or rigidity. SKIN: No rashes CENTRAL NERVOUS SYSTEM: No focal deficits. EXTREMITIES: [No cyanosis, clubbing or edema.] Results 10/17/20 07:21 10/17/20 07:21 Cardiac Enzymes 10/17/20 Range/Units 07:21 AST 37 (17-59) U/L CBC 10/17/20 Range/Units 07:21 WBC 6.4 (3.8-10.6) k/uL RBC 4.45 (4.30-5.90) m/uL Hgb 14.3 (13.0-17.5) gm/dL Hct 45.0 (39.0-53.0) % Plt Count 118 L (150-450) k/uL Comprehensive Metabolic Panel 10/17/20 Range/Units 07:21 Sodium 144 (137-145) mmol/L Potassium 3.6 (3.5-5.1) mmol/L Chloride 109 H (98-107) mmol/L Carbon Dioxide 30 (22-30) mmol/L BUN 5 L (9-20) mg/dL Creatinine 0.66 (0.66-1.25) mg/dL Glucose 83 (74-99) mg/dL Calcium 8.6 (8.4-10.2) mg/dL AST 37 (17-59) U/L ALT 22 (4-49) U/L Alkaline Phosphatase 63 (38-126) U/L Total Protein 6.6 (6.3-8.2) g/dL Albumin 3.7 (3.5-5.0) g/dL Current Medications Generic Name Dose Route Start Last Admin Trade Name Freq PRN Reason Stop Dose Admin Allopurinol 100 mg 10/16/20 09:00 10/17/20 08:55 Allopurinol 100 Mg Tab PO 100 mg DAILY FITO Administration Atorvastatin Calcium 10 mg 10/16/20 09:00 10/17/20 08:54 Atorvastatin 10 Mg Tab PO 10 mg DAILY FITO Administration Baclofen 10 mg 10/16/20 09:02 10/16/20 12:59 Baclofen 10 Mg Tab PO 10 mg BID PRN Administration MUSCLE SPASM Cholecalciferol 50 mcg 10/16/20 09:00 10/17/20 08:54 Cholecalciferol 25 Mcg (1000 Iu) Tablet PO 50 mcg DAILY FITO Administration Fluoxetine HCl 40 mg 10/16/20 09:00 10/17/20 08:55 Fluoxetine Hcl 20 Mg Cap PO 40 mg DAILY FITO Administration Sodium Chloride 1,000 mls @ 130 mls/hr 10/15/20 20:00 10/17/20 18:10 Saline 0.9% IV 130 mls/hr .Q7H42M FITO Administration Lacosamide 150 mg 10/16/20 17:00 10/17/20 08:55 Lacosamide 50 Mg Tablet PO 150 mg BID FITO Administration Levothyroxine Sodium 100 mcg 10/16/20 06:30 10/17/20 06:45 Levothyroxine 100 Mcg Tab PO 100 mcg 0630 FITO Administration Lisinopril 2.5 mg 10/16/20 09:00 10/17/20 08:55 Lisinopril 2.5 Mg Tab PO 2.5 mg DAILY FITO Administration Lorazepam 1 mg 10/17/20 10:59 Lorazepam 2 Mg/Ml Inj IV Q2HR PRN CIWA 8 or 9 Lorazepam 1 mg 10/17/20 10:59 Lorazepam 2 Mg/Ml Inj IV Q1HR PRN CIWA 10 to 15 Lorazepam 2 mg 10/17/20 10:59 Lorazepam 2 Mg/Ml Inj IV 10/19/20 10:59 Q10M PRN CIWA 16 or higher Metoprolol Succinate 25 mg 10/15/20 21:00 10/17/20 08:54 Metoprolol Succinate (Er) 25 Mg Tab.Er.24h PO 25 mg BID FITO Administration Naloxone HCl 0.2 mg 10/15/20 19:46 Naloxone 0.4 Mg/Ml 1 Ml Vial IV Q2M PRN Opioid Reversal Olanzapine 5 mg 10/16/20 21:00 10/16/20 21:39 Olanzapine 5 Mg Tab PO 5 mg HS FITO Administration Thiamine HCl 100 mg 10/17/20 17:30 10/17/20 18:09 Thiamine 100 Mg Tab PO 100 mg BID-W/MEALS FITO Administration Intake and Output 10/17/20 10/17/20 10/17/20 06:59 14:59 22:59 Intake Total 720 0 Output Total 800 2525 Balance -800 -1805 0 Intake: Oral 720 0 Output: Urine 800 2525 Other: Voiding Method Urinal Urinal Diaper Diaper Incontinent Incontinent Weight 84 kg 10/17/20 07:21 10/17/20 07:21 EKG Interpretations (text) Sinus bradycardia Assessment and Plan (1) Delirium due to general medical condition Current Visit: Yes Status: Acute Code(s): F05 - DELIRIUM DUE TO KNOWN PHYSIOLOGICAL CONDITION SNOMED Code(s): 1213445 (2) Frequent falls Current Visit: Yes Status: Acute Code(s): R29.6 - REPEATED FALLS SNOMED Code(s): 972914672 (3) History of alcohol consumption Current Visit: Yes Status: Acute Code(s): Z87.898 - PERSONAL HISTORY OF OTHER SPECIFIED CONDITIONS SNOMED Code(s): 057965820 (4) Altered mental status Current Visit: No Status: Acute Code(s): R41.82 - ALTERED MENTAL STATUS, UNSPECIFIED SNOMED Code(s): 658227584 (5) Seizure disorder Current Visit: No Status: Acute Code(s): G40.909 - EPILEPSY, UNSP, NOT INTRACTABLE, WITHOUT STATUS EPILEPTICUS SNOMED Code(s): 182982103 Plan: Patient's cardiac status seemed to be stable. Neurology is following for evaluation of his altered mental status. We'll continue to follow
[2020-10-17 20:00] LABS: Glucose,Whole Blood 84 mg/dL (75-99)
[2020-10-17] MEDS: OLANZapine 5 MG TAB PO SCH (20:40)
--- NOTE | 2020-10-17 21:41 | CONS ---
CONSULTATION DATE OF SERVICE: 10/17/2020 PURPOSE FOR CONSULTATION: Evaluate for altered mental status and hallucinations. INTERVAL HISTORY: Patient has been doing fair. He had a quiet day yesterday. He had he slept fair last night. Today he says that his thinking is a little clearer and he feels calmer. When I asked about issues of hallucinations, he said that some of that seem to come on to him as part of anxiety. He was not clear as to the nature of his apparent hallucinations. He does acknowledge since family stress issues. It was between his parents and his sisters. It is noted that his sister's daughter lives with his parents because of Protective Services mandate for the child. He did not give much more details than that. He has not had problems with the start of Zyprexa. He seemed to feel it has been helping to some extent in regard to him feeling more calmer and having a better outlook. When I saw him today, he gave fairly good eye contact. He had a quiet manner and smiled some. His thoughts were clear. He did not appear to be distressed in any way. ASSESSMENT: I will continue current diagnosis and treatment plan. I will continue the patient's Zyprexa 5 mg a day along with his Prozac 40 mg a day. I had do agree with maintaining him off Klonopin which would not have been an appropriate long-term medicine for the patient. Whether or not he is at risk for any alcohol-related withdrawal issues remains to be seen. It is noted that his GGT was 41. I will continue to follow. MMODL / IJN: [id number] /
[2020-10-18] MEDS: SODIUM CHLORIDE 0.9% 1,000 ML IV SCH ×3 (01:54→17:37)
[2020-10-18 02:09] LABS: Glucose,Whole Blood 88 mg/dL (75-99)
[2020-10-18] MEDS: LORazepam 2 MG/ML INJ IV PRN ×3 (05:19→13:41)
[2020-10-18] MEDS ORDERED: HALOPERIDOL LACTATE 5 MG/ML 1 ML VIAL IM ONE (06:30)
[2020-10-18 07:13] LABS: Glucose,Whole Blood 92 mg/dL (75-99)
[2020-10-18] MEDS: THIAMINE 100 MG TAB PO SCH ×2 (07:15→17:35)
[2020-10-18] MEDS: LEVOTHYROXINE 100 MCG TAB PO SCH (07:15)
[2020-10-18 07:56] LABS: Basophils % (A) 0 %; Eosinophils # (A) 0.2 k/uL (0-0.7); Eosinophils % (A) 6 %; HCT 38.6 % (39.0-53.0); HGB 12.8 gm/dL (13.0-17.5); Lymphocytes % (A) 27 %; MCH 32.5 pg (25.0-35.0); MCHC 33.3 g/dL (31.0-37.0); MCV 97.6 fL (80.0-100.0); Mean Platelet Volume 8.2; Monocytes # (A) 0.3 k/uL (0-1.0); Monocytes % (A) 9 %; Neutrophils % (A) 55 %; Platelet Count 124 k/uL (150-450); RBC 3.95 m/uL (4.30-5.90); RDW 15.2 % (11.5-15.5); WBC 3.6 k/uL (3.8-10.6)
[2020-10-18 08:18] LABS: ALT 17 U/L (4-49); AST 33 U/L (17-59); African American GFR (CKD) >90 (>60 ml/min/1.73 sqM); Albumin 2.8 g/dL (3.5-5.0); Alkaline Phosphatase 55 U/L (38-126); Anion Gap 3 mmol/L; Blood Urea Nitrogen 4 mg/dL (9-20); Calcium 7.9 mg/dL (8.4-10.2); Carbon Dioxide 26 mmol/L (22-30); Chloride 113 mmol/L (98-107); Glucose 87 mg/dL (74-99); Non-African American GFR(CKD) >90 (>60 ml/min/1.73 sqM); Potassium 3.4 mmol/L (3.5-5.1); Sodium 142 mmol/L (137-145); Total Bilirubin 0.6 mg/dL (0.2-1.3); Total Protein 5.4 g/dL (6.3-8.2)
[2020-10-18] MEDS: CHOLECALCIFEROL 25 MCG (1000 IU) TABLET PO SCH (09:37)
[2020-10-18] MEDS: allopurinoL 100 MG TAB PO SCH (09:38)
[2020-10-18] MEDS: FLUoxetine HCL 20 MG CAP PO SCH (09:38)
[2020-10-18] MEDS: ATORVASTATIN 10 MG TAB PO SCH (09:38)
[2020-10-18] MEDS: LACOSAMIDE 50 MG TABLET PO SCH ×2 (09:38→20:50)
[2020-10-18] MEDS: METOPROLOL SUCCINATE (ER) 25 MG TAB.ER.24H PO SCH ×2 (09:38→20:50)
[2020-10-18 11:17] LABS: Glucose,Whole Blood 100 mg/dL (75-99)
[2020-10-18] MEDS ORDERED: HALOPERIDOL LACTATE 5 MG/ML 1 ML VIAL IM PRN (13:46)
[2020-10-18] MEDS: OLANZapine 10 MG TAB PO SCH ×2 (14:20→20:50)
[2020-10-18] MEDS: HALOPERIDOL LACTATE 5 MG/ML 1 ML VIAL IM PRN (15:40)
--- NOTE | 2020-10-18 16:03 | CONS ---
CONSULTATION DATE OF SERVICE: 10/18/2020 PURPOSE FOR CONSULTATION: Evaluate for altered mental status and hallucinations. INTERVAL HISTORY: It is noted that the patient has shown a decline in mental status. When I saw him on Sunday and Sunday, he was fairly well oriented. He was able to respond appropriately to questions. He did not provide a lot of useful information though was able to get some information about his living situation and what he anticipates on discharge. Staff have noted that today he has had significant decline in his mental status. He has been confused and disoriented. He has been talking quite a bit about the idea of riding on boats and train. He is not oriented to circumstances. When I went in to talk to him, he initially was on a telephone talking to someone outside the hospital. He kept repeating some ideas about being on the roof of a train. When I interviewed him, the patient was not able to say that he was in the hospital or what his current circumstances were. He made comments about needing to go to a test, though he did not say anything more about that. He was not able to give a day or date other than he thought it was September, though ultimately corrected himself and said it was October. He was able to say was 2020. It is noted that, given his confusion, he had gotten into quite a restless situation where he was resistant to staff. He apparently was attempting to get out of bed and potentially leave. He has been put into mild restraints. He has been receiving Ativan p.r.n., with some benefit. When I saw the patient he was not resistant to restraints. ASSESSMENT: I will discontinue Ativan, as it may be adding to some of his confusion. I advised the nurse that we could initiate Haldol 5 mg IM p.r.n. for acute agitation or psychosis. I will increase the patient's oral Zyprexa to 10 mg twice a day for his psychotic symptoms. I reviewed treatment issues with Dr. Ma. I will continue to follow. MMODL / SILVINAN: [id number] /
[2020-10-18 16:43] LABS: Glucose,Whole Blood 80 mg/dL (75-99)
--- NOTE | 2020-10-18 19:16 | P.PN ---
Subjective Progress Note Date: 10/18/20 Marco Antonio South, is a 50 year-old male who presented to [facility] emergency room with a chief complaint of confusion patient stated that he fell twice in the last 2 days and hit his head, patient has a known history of seizure disorder and is maintained on Vimpat however he stated that he stopped taking Vimpat few days ago he was drinking alcohol for several days and subsequently he was confused and having falls. He was evaluated in the emergency room vital examination on presentation reveals a temperature of 97.4 pulse 73 respiration 16 blood pressure 139/87 pulse ox 92% on room air laboratory data revealed a white blood count of 4.1 hemoglobin 14.1 platelet count 1:15 sodium 143 potassium 3.9 chloride 107 CO2 27 BUN 11 creatinine 0.71 TSH was 5.35 computed tomography scan of the head and cervical spine was done in the emergency room and revealed cerebral atrophy and chronic white matter changes no acute intracranial abnormality no cervical spine abnormality EKG revealed sinus bradycardia otherwise normal EKG. On 10/17/2020atient was seen and examined on the medical floor, he is alert and oriented x 3 in no distress, he denies any complaints there is no fever or chi lls no headache or dizziness no chest pain no shortness of breath no palpitation no cough no nausea or vomiting no abdominal pain no diarrhea no blood in the stools no burning with urination no frequency or urgency and no hematuria, there is no weakness or numbness in any of the extremities no change in vision speech or gait. Patient is starting to have some hand tremor, will start CIWA protocol, and continue to monitor closely. On 10/18/2020 Patient was seen and examined on the medical floor, he is alert and oriented x 3 in no distress, he denies any complaints there is no fever or chills no headache or dizziness no chest pain no shortness of breath no palpitation no cough no nausea or vomiting no abdominal pain no diarrhea no blood in the stools no burning with urination no frequency or urgency and no hematuria, there is no weakness or numbness in any of the extremities no change in vision speech or gait. Patient is starting to have some hand tremor, Patient had episodes of agitation last night, he was evaluated by psychiatry and started on Haldol. Objective - Vital Signs Vital signs: Vital Signs Temp 97.5 F L 10/18/20 12:31 Pulse 57 L 10/18/20 12:31 Resp 18 10/18/20 12:31 BP 178/93 10/18/20 12:31 Pulse Ox 98 10/18/20 12:31 Intake & Output 10/17/20 10/18/20 10/18/20 18:59 06:59 18:59 Intake Total 720 1040 Output Total 2525 850 Balance -1805 -850 1040 Weight 55.3 kg Intake: Intake, IV Titration 1040 Amount Sodium Chloride 0.9% 1, 1040 000 ml @ 130 mls/hr IV . Q7H42M [facility] Rx#:[id number] Oral 720 Output: Urine 2525 850 Other: Voiding Method Urinal Urinal Urinal Diaper Diaper Diaper Incontinent - Exam In general patient is alert and oriented ?-3 in no distress HEENT head normocephalic and atraumatic Neck is supple no JVD no goiter no lymphadenopathy no carotid bruit Chest examination is clear to auscultation no crackles no wheezing Cardiac exam reveals regular heart sounds S1 and S2 no gallops no murmurs Abdomen is soft nontender no organomegaly with normal bowel sounds Extremity exam reveals no edema no cyanosis or clubbing Neurological examination reveals no gross focal deficits - Labs CBC & Chem 7: 10/18/20 07:45 10/18/20 07:45 Labs: Abnormal Lab Results - Last 24 Hours (Table) 10/18/20 10/18/20 10/18/20 Range/Units 07:45 07:45 11:13 WBC 3.6 L (3.8-10.6) k/uL RBC 3.95 L (4.30-5.90) m/uL Hgb 12.8 L (13.0-17.5) gm/dL Hct 38.6 L (39.0-53.0) % Plt Count 124 L (150-450) k/uL Potassium 3.4 L (3.5-5.1) mmol/L Chloride 113 H (98-107) mmol/L BUN 4 L (9-20) mg/dL POC Glucose (mg/dL) 100 H (75-99) mg/dL Calcium 7.9 L (8.4-10.2) mg/dL Total Protein 5.4 L (6.3-8.2) g/dL Albumin 2.8 L (3.5-5.0) g/dL Assessment and Plan Plan: 1. 2 episodes of fall with at least one episode of loss of consciousness with head trauma, possible seizure activity, patient was maintained on Vimpat 100 mg twice daily however he stated that he has not taken that for several days, Vimpat was restarted neurology consultation requested 2. Head trauma no evidence of intracranial bleeding on computed tomography scan 3. Fall with loss of consciousness possible seizure activity, however other causes of syncope will be evaluated echocardiogram and cardiology consultation are requested 4. Recent alcohol intake, alcohol level was less then 10 in the emergency room, will monitor for any evidence of delirium tremens 5. Underlying history of hypothyroidism patient was maintained on Synthroid 100 g daily , TSH is elevated however it does not appear that patient was taking his medication on a regular basis, will continue with the same dose at this time patient was counseled extensively in regard to taking medication on a regular basis. 6. Underlying history of hyperlipidemia maintained on Crestor 7. Underlying history of depression maintained on Prozac At this time medication and labs were reviewed Neurology consultation and cardiology consultation were requested Vimpat was restarted Will follow closely
[2020-10-18 20:26] LABS: Glucose,Whole Blood 72 mg/dL (75-99)
--- NOTE | 2020-10-18 21:07 | P.PN ---
Subjective Progress Note Date: 10/18/20 Patient was seen for a follow-up. Patient initially seen by Dr. Maxwell Hooks. Please refer to his note for details. Patient came to the hospital for recurrent falls. Patient was having auditory hallucinations. He also has history of seizures for which she is on Vimpat 100 mg twice a day, also on Klonopin. Patient has history of alcoholism. Patient has cardiomyopathy. Patient is laying in the bed, appears psychotic. Patient talking to himself, smiling for no reason. Patient is on 4 points restraints. Sitter was present, who states patient is actively hallucinating, thinking paper towel dispenser is a bomb, which makes him upset. He is having full conversation 4 hours with his niece and sister, who were not present in the room. He gets upset, as they do not follow what he is telling him to do, although nobody is there. He thought he was on a boat and felt a boat was thinking. Later he felt he was on a train, and all passengers in the train were doing drugs and he wanted to get off the train. He is often asking for beer, laughing, busy with conversation with himself. Telemetry monitoring showing sinus rhythm. Objective - Vital Signs Vital signs: Vital Signs Temp 97.5 F L 10/18/20 12:31 Pulse 63 10/18/20 15:51 Resp 20 10/18/20 15:51 BP 138/62 10/18/20 15:51 Pulse Ox 94 L 10/18/20 15:51 Intake & Output 10/17/20 10/18/20 10/18/20 18:59 06:59 18:59 Intake Total 720 1040 Output Total 2525 850 Balance -1805 -850 1040 Weight 55.3 kg Intake: Intake, IV Titration 1040 Amount Sodium Chloride 0.9% 1, 1040 000 ml @ 130 mls/hr IV . Q7H42M [facility] Rx#:[id number] Oral 720 Output: Urine 2525 850 Other: Voiding Method Urinal Urinal Urinal Diaper Diaper Diaper Incontinent - Exam Patient is mumbling. Speech sometimes clear, otherwise difficult to understand. Patient is smiling, laughing for no reason. Appears obviously psychotic. He is also in withdrawals. Tone is equal bilaterally. He is on restraints. Reflexes symmetric and plantars withdrawal. [employer] and biceps appears normal. - Labs CBC & Chem 7: 10/18/20 07:45 10/18/20 07:45 Labs: Abnormal Lab Results - Last 24 Hours (Table) 10/18/20 10/18/20 10/18/20 Range/Units 07:45 07:45 11:13 WBC 3.6 L (3.8-10.6) k/uL RBC 3.95 L (4.30-5.90) m/uL Hgb 12.8 L (13.0-17.5) gm/dL Hct 38.6 L (39.0-53.0) % Plt Count 124 L (150-450) k/uL Potassium 3.4 L (3.5-5.1) mmol/L Chloride 113 H (98-107) mmol/L BUN 4 L (9-20) mg/dL POC Glucose (mg/dL) 100 H (75-99) mg/dL Calcium 7.9 L (8.4-10.2) mg/dL Total Protein 5.4 L (6.3-8.2) g/dL Albumin 2.8 L (3.5-5.0) g/dL Assessment and Plan Assessment: * Acute psychosis with auditory hallucinations. Patient actively hallucinating, delusional, speaking to himself. Possible alcohol withdrawal. * Recurrent falls. Unsure exact exactly. Possibly medication effect (combination of Klonipin, Baclofen and alcohol). Rule out cardiac in etiology. Today he is walking without any issues. * Few episode of loss of consciousness. Possibly seizure (possibly provoked). He missed last two days of Vimpat. Rule out cardiac in etiology. * Seizure disorder. * Alcohol use (he drinks about 2 of 25 oz of beer daily and has not been drinking in last couple days with alcohol level <10.) * Hypothyroidism (with abnormal TSH and T4 on this visit). * Cardiomyopathy * hx of status cardiac ablation Plan: * Psychiatry following the patient. Patient still psychotic. * Patient has history of seizure disorder, currently on Vimpat 150 mg twice a day. * Continue thiamine. * Toxicology screen is positive for benzo. Serum alcohol was less than 10. * Orthostatic vitals is supine his blood pressure of 139/89 with a heart rate 55: Sitting his blood pressure of the 140/89 with a heart rate 58 and standing his blood pressure of 143/89 with a heart rate of 62. Therefore the orthostatics are negative for hypotension. * Vitamin B12: 577 (normal) and folate level: 13.3 (normal). * 2-D echo was reported as left ventricle wall thickness is normal. Ejection fraction of 50-55%. Left atrium size is normal. * We will follow clinically.
[2020-10-19] MEDS: SODIUM CHLORIDE 0.9% 1,000 ML IV SCH ×4 (01:00→23:10)
[2020-10-19 01:53] LABS: Glucose,Whole Blood 70 mg/dL (75-99)
[2020-10-19 06:06] LABS: Glucose,Whole Blood 73 mg/dL (75-99)
[2020-10-19] MEDS: LEVOTHYROXINE 100 MCG TAB PO SCH (06:54)
[2020-10-19] MEDS: THIAMINE 100 MG TAB PO SCH ×2 (06:54→17:34)
[2020-10-19] MEDS: METOPROLOL SUCCINATE (ER) 25 MG TAB.ER.24H PO SCH ×2 (09:07→20:04)
[2020-10-19] MEDS: ATORVASTATIN 10 MG TAB PO SCH (09:07)
[2020-10-19] MEDS: allopurinoL 100 MG TAB PO SCH (09:07)
[2020-10-19] MEDS: FLUoxetine HCL 20 MG CAP PO SCH (09:07)
[2020-10-19] MEDS: LACOSAMIDE 50 MG TABLET PO SCH ×2 (09:07→20:04)
[2020-10-19] MEDS: CHOLECALCIFEROL 25 MCG (1000 IU) TABLET PO SCH (09:07)
[2020-10-19] MEDS: OLANZapine 10 MG TAB PO SCH ×2 (09:08→20:04)
[2020-10-19 12:05] LABS: Glucose,Whole Blood 66 mg/dL (75-99)
[2020-10-19 12:24] LABS: Glucose,Whole Blood 78 mg/dL (75-99)
--- NOTE | 2020-10-19 15:58 | P.PN ---
Subjective Progress Note Date: 10/19/20 10/19/2020: Patient is much more alert and awake. Able to answer appropriately. Patient states "I am getting better, my energy is getting up there". Speech is much more clear. Not hallucinating actively. Affect much better. He offers no complaints. No headache. No problem with the vision. 10/18/2020: Patient was seen for a follow-up. Patient initially seen by Dr. Maxwell Hooks. Please refer to his note for details. Patient came to the hospital for recurrent falls. Patient was having auditory hallucinations. He also has history of seizures for which she is on Vimpat 100 mg twice a day, also on Klonopin. Patient has history of alcoholism. Patient has cardiomyopathy. Patient is laying in the bed, appears psychotic. Patient talking to himself, smiling for no reason. Patient is on 4 points restraints. Sitter was present, who states patient is actively hallucinating, thinking paper towel dispenser is a bomb, which makes him upset. He is having full conversation 4 hours with his niece and sister, who were not present in the room. He gets upset, as they do not follow what he is telling him to do, although nobody is there. He thought he was on a boat and felt a boat was thinking. Later he felt he was on a train, and all passengers in the train were doing drugs and he wanted to get off the train. He is often asking for beer, laughing, busy with conversation with himself. Telemetry monitoring showing sinus rhythm. Objective - Vital Signs Vital signs: Vital Signs Temp 98.4 F 10/19/20 11:51 Pulse 68 10/19/20 11:51 Resp 20 10/19/20 11:51 BP 146/94 10/19/20 11:51 Pulse Ox 95 10/19/20 11:51 Intake & Output 10/18/20 10/19/20 10/19/20 18:59 06:59 18:59 Intake Total 1040 300 Balance 1040 300 Weight 55 kg Intake: Intake, IV Titration 1040 Amount Sodium Chloride 0.9% 1, 1040 000 ml @ 130 mls/hr IV . Q7H42M [facility] Rx#:[id number] Oral 300 Other: Voiding Method Urinal Diaper Diaper Diaper Incontinent Incontinent # Voids 1 1 - Exam Patient is much more alert and awake, normal affect. Speaking more clearly. Patient knows his name, states is September 2020, then changed to October 2020. Knows name of the current president. Patient can name and repeat very well. No paraphasic errors. No double vision. Extraocular muscles intact, face is symmetric. Muscle strength is normal. Patient stated on 4 points restrain. Reflexes are 2+ and plantars are withdrawal. - Labs CBC & Chem 7: 10/18/20 07:45 10/18/20 07:45 Labs: Abnormal Lab Results - Last 24 Hours (Table) 10/18/20 10/19/20 10/19/20 Range/Units 20:24 01:50 06:05 POC Glucose (mg/dL) 72 L 70 L 73 L (75-99) mg/dL 10/19/20 Range/Units 12:03 POC Glucose (mg/dL) 66 L (75-99) mg/dL Assessment and Plan Assessment: * Acute psychosis with auditory hallucinations. Patient actively hallucinating, delusional, speaking to himself. Possible alcohol withdrawal. Patient clinically much improved today. * Recurrent falls. Unsure exact exactly. Possibly medication effect (combination of Klonipin, Baclofen and alcohol). Rule out cardiac in etiology. Today he is walking without any issues. * Few episode of loss of consciousness. Possibly seizure (possibly provoked). He missed last two days of Vimpat. Rule out cardiac in etiology. * Seizure disorder. * Alcohol use (he drinks about 2 of 25 oz of beer daily and has not been drinking in last couple days with alcohol level <10.) * Hypothyroidism (with abnormal TSH and T4 on this visit). * Cardiomyopathy * hx of status cardiac ablation Plan: * Psychiatry following the patient. Patient's mentation, and psychosis have much improved. Able to answer questions appropriately. Examination is nonfocal. * Patient has history of seizure disorder, currently on Vimpat 150 mg twice a day. * Continue thiamine. * Toxicology screen is positive for benzo. Serum alcohol was less than 10. * Orthostatic vitals is supine his blood pressure of 139/89 with a heart rate 55: Sitting his blood pressure of the 140/89 with a heart rate 58 and standing his blood pressure of 143/89 with a heart rate of 62. Therefore the orthostatics are negative for hypotension. * Vitamin B12: 577 (normal) and folate level: 13.3 (normal). * 2-D echo was reported as left ventricle wall thickness is normal. Ejection fraction of 50-55%. Left atrium size is normal. * Neurologically clear for discharge, pending psychiatric clearance.
--- NOTE | 2020-10-19 15:59 | CONS ---
CONSULTATION DATE OF SERVICE: 10/19/2020 PURPOSE FOR CONSULTATION: Evaluate for altered mental status and hallucinations. INTERVAL HISTORY: The patient has been doing fair. He had a quiet evening yesterday. He was quite confused yesterday and completely disoriented. When I talked to him yesterday he was not able to say anything about his circumstances where he was or answer any basic orientation questions. He would ramble about being on a train. He was not able to make any statements about the idea that he was in the hospital. When I saw him this morning, he was doing somewhat better. He continues to be disorganized in his thoughts. On the other hand, he is showing better orientation. He was able to say that he was in [place] at [facility]. It is noted when I asked him where he was, it took him quite a bit of time to come up with that answer as he kept making statements that he stays either at his sister's house or his parent's house. Eventually he responded appropriately. He did say it was Sunday. He could say it was 2020. He said it was September though after a little bit of coaxing he was able to say it was October. I asked the patient to state the days of the week in reverse order. He did not seem to comprehend the directions, even when I gave him help. He kept making statements about Sunday, and something about it being in September. Generally when I would ask any of these questions he would make a few disconnected statements before coming up with responses. Most of his statements were phrases, though not complete sentences. At times he had a s light slurring of his words. It is noted that it took him some coaxing from the nurse to take his medications. He noted that he had a quiet evening yesterday so that staff was able to discontinue one-on-one. He continues with soft restraints. ASSESSMENT: Patient is showing a mild degree of improvement in his mental status. He is a little more oriented, though continues to be quite disorganized in his thoughts. He is on an assertive dose of Zyprexa because of the concern related to thought disorder given he was having apparent hallucinations. A primary side effect of sedation does not seem to be an issue, so he appears to be tolerating Zyprexa well. I will continue treatment the same and we will continue to follow. MMODL / IJN: [id number] / [id number]
--- NOTE | 2020-10-19 17:19 | P.PN ---
Subjective Progress Note Date: 10/19/20 Marco Antonio South, is a 50 year-old male who presented to [facility] emergency room with a chief complaint of confusion patient stated that he fell twice in the last 2 days and hit his head, patient has a known history of seizure disorder and is maintained on Vimpat however he stated that he stopped taking Vimpat few days ago he was drinking alcohol for several days and subsequently he was confused and having falls. He was evaluated in the emergency room vital examination on presentation reveals a temperature of 97.4 pulse 73 respiration 16 blood pressure 139/87 pulse ox 92% on room air laboratory data revealed a white blood count of 4.1 hemoglobin 14.1 platelet count 1:15 sodium 143 potassium 3.9 chloride 107 CO2 27 BUN 11 creatinine 0.71 TSH was 5.35 computed tomography scan of the head and cervical spine was done in the emergency room and revealed cerebral atrophy and chronic white matter changes no acute intracranial abnormality no cervical spine abnormality EKG revealed sinus bradycardia otherwise normal EKG. On 10/17/2020atient was seen and examined on the medical floor, he is alert and oriented x 3 in no distress, he denies any complaints there is no fever or chi lls no headache or dizziness no chest pain no shortness of breath no palpitation no cough no nausea or vomiting no abdominal pain no diarrhea no blood in the stools no burning with urination no frequency or urgency and no hematuria, there is no weakness or numbness in any of the extremities no change in vision speech or gait. Patient is starting to have some hand tremor, will start CIWA protocol, and continue to monitor closely. On 10/18/2020 Patient was seen and examined on the medical floor, he is alert and oriented x 3 in no distress, he denies any complaints there is no fever or chills no headache or dizziness no chest pain no shortness of breath no palpitation no cough no nausea or vomiting no abdominal pain no diarrhea no blood in the stools no burning with urination no frequency or urgency and no hematuria, there is no weakness or numbness in any of the extremities no change in vision speech or gait. Patient is starting to have some hand tremor, Patient had episodes of agitation last night, he was evaluated by psychiatry and started on Haldol. On 10/19/2020 patient was seen and examined on the medical floor he is sleepy confused and talking to himself at this time he is able to arouse and answer a few questions he is denying any symptoms at this time, neurology and psychiatry are following medication and labs were reviewed Objective - Vital Signs Vital signs: Vital Signs Temp 97.6 F 10/19/20 03:05 Pulse 97 10/19/20 03:05 Resp 16 10/19/20 03:05 BP 148/87 10/19/20 03:05 Pulse Ox 97 10/19/20 03:05 Intake & Output 10/18/20 10/19/20 10/19/20 18:59 06:59 18:59 Intake Total 1040 120 Balance 1040 120 Weight 55 kg Intake: Intake, IV Titration 1040 Amount Sodium Chloride 0.9% 1, 1040 000 ml @ 130 mls/hr IV . Q7H42M [facility] Rx#:[id number] Oral 120 Other: Voiding Method Urinal Diaper Diaper Incontinent # Voids 1 1 - Exam In general patient is alert and oriented ?-3 in no distress HEENT head normocephalic and atraumatic Neck is supple no JVD no goiter no lymphadenopathy no carotid bruit Chest examination is clear to auscultation no crackles no wheezing Cardiac exam reveals regular heart sounds S1 and S2 no gallops no murmurs Abdomen is soft nontender no organomegaly with normal bowel sounds Extremity exam reveals no edema no cyanosis or clubbing Neurological examination reveals no gross focal deficits - Labs CBC & Chem 7: 10/18/20 07:45 10/18/20 07:45 Labs: Abnormal Lab Results - Last 24 Hours (Table) 10/18/20 10/18/20 10/19/20 Range/Units 11:13 20:24 01:50 POC Glucose (mg/dL) 100 H 72 L 70 L (75-99) mg/dL 10/19/20 Range/Units 06:05 POC Glucose (mg/dL) 73 L (75-99) mg/dL Assessment and Plan Plan: 1. 2 episodes of fall with at least one episode of loss of consciousness with head trauma, possible seizure activity, patient was maintained on Vimpat 100 mg twice daily however he stated that he has not taken that for several days, Vimpat was restarted neurology consultation requested 2. Head trauma no evidence of intracranial bleeding on computed tomography scan 3. Fall with loss of consciousness possible seizure activity, however other causes of syncope will be evaluated echocardiogram and cardiology consultation are requested 4. Recent alcohol intake, alcohol level was less then 10 in the emergency room, will monitor for any evidence of delirium tremens 5. Underlying history of hypothyroidism patient was maintained on Synthroid 100 g daily , TSH is elevated however it does not appear that patient was taking his medication on a regular basis, will continue with the same dose at this time patient was counseled extensively in regard to taking medication on a regular basis. 6. Underlying history of hyperlipidemia maintained on Crestor 7. Underlying history of depression maintained on Prozac At this time medication and labs were reviewed Neurology consultation and cardiology consultation were requested Vimpat was restarted Will follow closely
[2020-10-19 17:23] LABS: Glucose,Whole Blood 75 mg/dL (75-99)
[2020-10-19] MEDS: hydrALAZINE HCL 20 MG/ML 1 ML VIAL IVP PRN (17:34)
[2020-10-19 19:42] LABS: Glucose,Whole Blood 99 mg/dL (75-99)
[2020-10-19] MEDS: BACLOFEN 10 MG TAB PO PRN (20:09)
[2020-10-20 02:00] LABS: Glucose,Whole Blood 71 mg/dL (75-99)
[2020-10-20] MEDS: SODIUM CHLORIDE 0.9% 1,000 ML IV SCH ×3 (03:37→23:05)
[2020-10-20] MEDS: hydrALAZINE HCL 20 MG/ML 1 ML VIAL IVP PRN (03:46)
[2020-10-20] MEDS: THIAMINE 100 MG TAB PO SCH ×2 (06:11→17:05)
[2020-10-20] MEDS: LEVOTHYROXINE 100 MCG TAB PO SCH (06:12)
[2020-10-20 06:23] LABS: Glucose,Whole Blood 73 mg/dL (75-99)
[2020-10-20] MEDS: OLANZapine 10 MG TAB PO SCH ×2 (08:09→19:46)
[2020-10-20] MEDS: FLUoxetine HCL 20 MG CAP PO SCH (08:09)
[2020-10-20] MEDS: CHOLECALCIFEROL 25 MCG (1000 IU) TABLET PO SCH (08:09)
[2020-10-20] MEDS: allopurinoL 100 MG TAB PO SCH (08:10)
[2020-10-20] MEDS: METOPROLOL SUCCINATE (ER) 25 MG TAB.ER.24H PO SCH ×2 (08:10→19:45)
[2020-10-20] MEDS: LACOSAMIDE 50 MG TABLET PO SCH ×2 (08:10→19:45)
[2020-10-20] MEDS: ATORVASTATIN 10 MG TAB PO SCH (08:10)
[2020-10-20 09:55] LABS: Basophils % (A) 0 %; Eosinophils # (A) 0.2 k/uL (0-0.7); Eosinophils % (A) 4 %; HCT 41.2 % (39.0-53.0); Lymphocytes # (A) 1.2 k/uL (1.0-4.8); Lymphocytes % (A) 24 %; MCH 33.4 pg (25.0-35.0); MCHC 33.9 g/dL (31.0-37.0); MCV 98.5 fL (80.0-100.0); Macrocytosis Slight; Monocytes # (A) 0.4 k/uL (0-1.0); Monocytes % (A) 8 %; Neutrophils # (A) 3.1 k/uL (1.3-7.7); Neutrophils % (A) 62 %; Platelet Count 147 k/uL (150-450); RBC 4.18 m/uL (4.30-5.90); RDW 15.3 % (11.5-15.5); WBC 5.1 k/uL (3.8-10.6)
[2020-10-20 10:11] LABS: ALT 15 U/L (4-49); AST 34 U/L (17-59); African American GFR (CKD) >90 (>60 ml/min/1.73 sqM); Alkaline Phosphatase 62 U/L (38-126); Anion Gap 7 mmol/L; Blood Urea Nitrogen 3 mg/dL (9-20); Calcium 8.2 mg/dL (8.4-10.2); Carbon Dioxide 25 mmol/L (22-30); Chloride 110 mmol/L (98-107); Glucose 79 mg/dL (74-99); Non-African American GFR(CKD) >90 (>60 ml/min/1.73 sqM); Potassium 3.7 mmol/L (3.5-5.1); Sodium 142 mmol/L (137-145); Total Bilirubin 0.8 mg/dL (0.2-1.3); Total Protein 5.5 g/dL (6.3-8.2)
[2020-10-20 11:53] LABS: Glucose,Whole Blood 80 mg/dL (75-99)
--- NOTE | 2020-10-20 13:28 | P.DS ---
Providers Date of admission: 10/15/20 19:50 Expected date of discharge: 10/20/20 Attending physician: Aries Ma Consults: 10/15/20 19:48 Consult Physician Routine Consulting Provider: Maxwell Hooks Consult Reason/Comments: seizures Do you want consulting provider notified?: Already Contacted 10/16/20 11:27 Consult Physician Routine Consulting Provider: Juan Alberto Mac Consult Reason/Comments: auditory hallucinations. Paranoid Do you want consulting provider notified?: Yes 10/16/20 11:29 Consult Physician Routine Consulting Provider: Eric Tinajero Consult Reason/Comments: Syncope Do you want consulting provider notified?: Yes 10/16/20 11:40 Consult Physician Routine Consulting Provider: Wong Beatty Consult Reason/Comments: Hx of cardiomyopathy, ablation with episode of unresponsiveness Do you want consulting provider notified?: Yes Primary care physician: [facility] Course: Discharge diagnosis 1. 2 episodes of fall with at least one episode of loss of consciousness with head trauma, possible seizure activity, patient was maintained on Vimpat 100 mg twice daily however he stated that he has not taken that for several days, Vimpat was restarted neurology consultation requested. Patient evaluated by neurology services and cleared for discharge 2. Head trauma no evidence of intracranial bleeding on computed tomography scan 3. Fall with loss of consciousness possible seizure activity, however other causes of syncope will be evaluated echocardiogram and cardiology consultation are requested 4. Recent alcohol intake, alcohol level was less then 10 in the emergency room, will monitor for any evidence of delirium tremens 5. Underlying history of hypothyroidism patient was maintained on Synthroid 100 g daily , TSH is elevated however it does not appear that patient was taking his medication on a regular basis, will continue with the same dose at this time patient was counseled extensively in regard to taking medication on a regular basis. 6. Underlying history of hyperlipidemia maintained on Crestor 7. Underlying history of depression maintained on Prozac Hospital course Marco Antonio South, is a 50 year-old male who presented to [facility] emergency room with a chief complaint of confusion patient stated that he fell twice in the last 2 days and hit his head, patient has a known history of seizure disorder and is maintained on Vimpat however he stated that he stopped taking Vimpat few days ago he was drinking alcohol for several days and subsequently he was confused and having falls. He was evaluated in the emergency room vital examination on presentation reveals a temperature of 97.4 pulse 73 respiration 16 blood pressure 139/87 pulse ox 92% on room air laboratory data revealed a white blood count of 4.1 hemoglobin 14.1 platelet count 1:15 sodium 143 potassium 3.9 chloride 107 CO2 27 BUN 11 creatinine 0.71 TSH was 5.35 computed tomography scan of the head and cervical spine was done in the emergency room and revealed cerebral atrophy and chronic white matter changes no acute intracranial abnormality no cervical spine abnormality EKG revealed sinus bradycardia otherwise normal EKG. On 10/17/2020atient was seen and examined on the medical floor, he is alert and oriented x 3 in no distress, he denies any complaints there is no fever or chills no headache or dizziness no chest pain no shortness of breath no palpitation no cough no nausea or vomiting no abdominal pain no diarrhea no blood in the stools no burning with urination no frequency or urgency and no hematuria, there is no weakness or numbness in any of the extremities no change in vision speech or gait. Patient is starting to have some hand tremor, will start CIWA protocol, and continue to monitor closely. On 10/18/2020 Patient was seen and examined on the medical floor, he is alert and oriented x 3 in no distress, he denies any complaints there is no fever or chills no headache or dizziness no chest pain no shortness of breath no palpitation no cough no nausea or vomiting no abdominal pain no diarrhea no blood in the stools no burning with urination no frequency or urgency and no hematuria, there is no weakness or numbness in any of the extremities no change in vision speech or gait. Patient is starting to have some hand tremor, Patient had episodes of agitation last night, he was evaluated by psychiatry and started on Haldol. On 10/19/2020 patient was seen and examined on the medical floor he is sleepy confused and talking to himself at this time he is able to arouse and answer a few questions he is denying any symptoms at this time, neurology and psychiatry are following medication and labs were reviewed On 10/20/2020 patient is alert and oriented 3 currently answering all questions. Patient cleared by neurology service services restarted on Vimpat. Discussed case with psychiatry services patient may be DC'd on Zyprexa decreased dose of 10 mg at night. Patient advised the importance of compliance with medication and sustaining from alcohol consumption. Also discussed case with patient's mother and updated on plan of care. Patient will be DC'd home recommend home healthcare services. Patient denies chest pain or shortness breath. Patient denies nausea vomiting or diarrhea. Patient denies any urinary burning or frequency Patient Condition at Discharge: Stable Plan - Discharge Summary Discharge Rx Participant: No New Discharge Prescriptions: New Thiamine [Vitamin B-1] 100 mg PO BID-W/MEALS 30 Days #30 tab OLANZapine [ZyPREXA] 10 mg PO DAILY 30 Days #30 tab Lacosamide [Vimpat] 150 mg PO BID 30 Days #60 tablet Continue allopurinoL [Zyloprim] 100 mg PO DAILY #30 tab FLUoxetine HCL [PROzac] 40 mg PO DAILY #30 capsule Cholecalciferol (Vitamin D3) [Vitamin D3] 50 mcg PO DAILY Metoprolol Succinate [Toprol XL] 25 mg PO BID lisinopriL [Zestril] 2.5 mg PO DAILY Baclofen 10 mg PO BID PRN PRN Reason: MUSCLE SPASM Rosuvastatin Calcium [Crestor] 5 mg PO DAILY Levothyroxine Sodium 100 mcg PO DAILY Discontinued clonazePAM [KlonoPIN] 1 mg PO HS clonazePAM [KlonoPIN] 0.5 mg PO DAILY@0900,1400 Discharge Medication List FLUoxetine HCL [PROzac] 40 mg PO DAILY #30 capsule 06/21/18 [Rx] allopurinoL [Zyloprim] 100 mg PO DAILY #30 tab 06/21/18 [Rx] Cholecalciferol (Vitamin D3) [Vitamin D3] 50 mcg PO DAILY 08/20/18 [History] Metoprolol Succinate [Toprol XL] 25 mg PO BID 12/24/19 [History] lisinopriL [Zestril] 2.5 mg PO DAILY 12/24/19 [History] Baclofen 10 mg PO BID PRN 08/30/20 [History] Levothyroxine Sodium 100 mcg PO DAILY 10/15/20 [History] Rosuvastatin Calcium [Crestor] 5 mg PO DAILY 10/15/20 [History] Lacosamide [Vimpat] 150 mg PO BID 30 Days #60 tablet 10/20/20 [Rx] OLANZapine [ZyPREXA] 10 mg PO DAILY 30 Days #30 tab 10/20/20 [Rx] Thiamine [Vitamin B-1] 100 mg PO BID-W/MEALS 30 Days #30 tab 10/20/20 [Rx] Follow up Appointment(s)/Referral(s): Aries Ma MD [Primary Care Provider] - 1-2 days Activity/Diet/Wound Care/Special Instructions: Activity as tolerated Diet heart healthy Discharge Disposition: HOME WITH HOME HEALTH SERVICES
[2020-10-20 16:39] LABS: Glucose,Whole Blood 80 mg/dL (75-99)
[2020-10-20 16:39] LABS: Glucose,Whole Blood 68 mg/dL (75-99)
--- NOTE | 2020-10-20 17:49 | P.PN ---
Subjective Progress Note Date: 10/20/20 10/20/2020: Patient was sitting in the chair. Patient appears very comfortable. Mentation appears normal. Offers no complaints. 10/19/2020: Patient is much more alert and awake. Able to answer appropriately. Patient states "I am getting better, my energy is getting up there". Speech is much more clear. Not hallucinating actively. Affect much better. He offers no complaints. No headache. No problem with the vision. 10/18/2020: Patient was seen for a follow-up. Patient initially seen by Dr. Maxwell Hooks. Please refer to his note for details. Patient came to the hospital for recurrent falls. Patient was having auditory hallucinations. He also has history of seizures for which she is on Vimpat 100 mg twice a day, also on Klonopin. Patient has history of alcoholism. Patient has cardiomyopathy. Patient is laying in the bed, appears psychotic. Patient talking to himself, smiling for no reason. Patient is on 4 points restraints. Sitter was present, who states patient is actively hallucinating, thinking paper towel dispenser is a bomb, which makes him upset. He is having full conversation 4 hours with his niece and sister, who were not present in the room. He gets upset, as they do not follow what he is telling him to do, although nobody is there. He thought he was on a boat and felt a boat was thinking. Later he felt he was on a train, and all passengers in the train were doing drugs and he wanted to get off the train. He is often asking for beer, laughing, busy with conversation with himself. Telemetry monitoring showing sinus rhythm. Objective - Vital Signs Vital signs: Vital Signs Temp 98.1 F 10/20/20 16:26 Pulse 57 L 10/20/20 16:26 Resp 20 10/20/20 16:26 BP 128/73 10/20/20 16:26 Pulse Ox 97 10/20/20 16:26 Intake & Output 10/19/20 10/20/20 10/20/20 18:59 06:59 18:59 Intake Total 980 153 7488 Output Total 1 275 1200 Balance 419 205 -40 Weight 79.5 kg Intake: Intake, IV Titration 1040 Amount Sodium Chloride 0.9% 1, 1040 000 ml @ 130 mls/hr IV . Q7H42M [facility] Rx#:[id number] Oral 420 480 120 Output: Urine 1 275 1200 Other: Voiding Method Diaper Urinal Incontinent # Voids 1 1 - Exam Patient is much more alert and awake, normal affect. Speaking very clearly. Patient knows his name, states it is 10/17/2020, and that he is in [facility] in [facility] and spring. Patient can name and repeat very well. No paraphasic errors. No double vision. Extraocular muscles intact, face is symmetric. Muscle strength is normal. Reflexes are 2+ and plantars are withdrawal. - Labs CBC & Chem 7: 10/20/20 09:31 10/20/20 09:31 Labs: Abnormal Lab Results - Last 24 Hours (Table) 10/20/20 10/20/20 10/20/20 Range/Units 01:58 06:20 09:31 RBC 4.18 L (4.30-5.90) m/uL Plt Count 147 L (150-450) k/uL Chloride (98-107) mmol/L BUN (9-20) mg/dL POC Glucose (mg/dL) 71 L 73 L (75-99) mg/dL Calcium (8.4-10.2) mg/dL Total Protein (6.3-8.2) g/dL Albumin (3.5-5.0) g/dL 10/20/20 10/20/20 Range/Units 09:31 16:19 RBC (4.30-5.90) m/uL Plt Count (150-450) k/uL Chloride 110 H (98-107) mmol/L BUN 3 L (9-20) mg/dL POC Glucose (mg/dL) 68 L (75-99) mg/dL Calcium 8.2 L (8.4-10.2) mg/dL Total Protein 5.5 L (6.3-8.2) g/dL Albumin 3.0 L (3.5-5.0) g/dL Assessment and Plan Assessment: * Acute psychosis with auditory hallucinations. Resolved. Possible alcohol withdrawal. * Recurrent falls. Unsure exact exactly. Possibly medication effect (combination of Klonipin, Baclofen and alcohol). Rule out cardiac in etiology. Today he is walking without any issues. * Few episode of loss of consciousness. Possibly seizure (possibly provoked). He missed last two days of Vimpat. Rule out cardiac in etiology. * Seizure disorder. * Alcohol use (he drinks about 2 of 25 oz of beer daily and has not been drinking in last couple days with alcohol level <10.) * Hypothyroidism (with abnormal TSH and T4 on this visit). * Cardiomyopathy * hx of status cardiac ablation Plan: * Psychiatry following the patient. Patient's mentation is back to normal. Psychosis has resolved. Exam is nonfocal. * Patient has history of seizure disorder, currently on Vimpat 150 mg twice a day. * Continue thiamine. * Toxicology screen is positive for benzo. Serum alcohol was less than 10. * Orthostatics negative. * Vitamin B12: 577 (normal) and folate level: 13.3 (normal). * 2-D echo was reported as left ventricle wall thickness is normal. Ejection fraction of 50-55%. Left atrium size is normal. * Neurologically clear for discharge, pending psychiatric clearance.
[2020-10-20] MEDS: BACLOFEN 10 MG TAB PO PRN (19:45)
[2020-10-20 19:57] LABS: Glucose,Whole Blood 83 mg/dL (75-99)
--- NOTE | 2020-10-20 20:33 | CONS ---
CONSULTATION DATE OF SERVICE: 10/20/2020 PURPOSE FOR CONSULTATION: Evaluate for altered mental status and hallucinations. INTERVAL HISTORY: The patient has been doing fair. He had a quiet day yesterday. It was noted that he continued to have disorganized thoughts, though overall seemed to be showing some improvement. He had been observed in previous days as showing response to hallucinations. He would be talking to himself and seeming to carry on conversations. He also was quite disorganized in his thinking. Yesterday later in the day he was showing some improvement in that regard. Today overall things seem to be better. He has been able to be released from soft restraints and has had no difficulty. His thinking is clear. He is a little more aware of his situation and surroundings. When I talked to him today, he was able to answer some questions with appropriate responses. On cognitive evaluation, still he said it was September, and it took some coaxing for him to identify that it was October. He could tell me that he was in [facility] in [place]. It is noted that when I asked him to give the days of the week in reverse order, he still had trouble with that, though he was actually able to make an effort to follow the directions compared to what he did yesterday. He ultimately with some coaxing was able to give the days of the week in reverse order. He had a calm manner. He was cooperative with care. He did not seem to be showing symptoms of thought disorder. My understanding is that the patient is at a point to be stable enough for discharge. My recommendation will be to continue psychotropic medications the same, including Prozac 40 mg a day and Zyprexa 10 mg twice a day. I would anticipate that the patient could be tapered down to Zyprexa 10 mg at bedtime as he shows progress. I will continue to follow as appropriate. MMODL / IJN: [id number] /
[2020-10-21 02:00] LABS: Glucose,Whole Blood 90 mg/dL (75-99)
[2020-10-21] MEDS: SODIUM CHLORIDE 0.9% 1,000 ML IV SCH ×2 (03:06→17:21)
[2020-10-21 06:00] LABS: Glucose,Whole Blood 79 mg/dL (75-99)
[2020-10-21] MEDS: THIAMINE 100 MG TAB PO SCH ×2 (06:06→17:21)
[2020-10-21] MEDS: LEVOTHYROXINE 100 MCG TAB PO SCH (06:06)
[2020-10-21] MEDS: LACOSAMIDE 50 MG TABLET PO SCH ×2 (08:47→20:01)
[2020-10-21] MEDS: allopurinoL 100 MG TAB PO SCH (08:48)
[2020-10-21] MEDS: FLUoxetine HCL 20 MG CAP PO SCH (08:48)
[2020-10-21] MEDS: CHOLECALCIFEROL 25 MCG (1000 IU) TABLET PO SCH (08:48)
[2020-10-21] MEDS: OLANZapine 10 MG TAB PO SCH ×4 (08:48→20:01)
[2020-10-21] MEDS: METOPROLOL SUCCINATE (ER) 25 MG TAB.ER.24H PO SCH ×2 (08:48→20:01)
[2020-10-21] MEDS: ATORVASTATIN 10 MG TAB PO SCH (08:48)
[2020-10-21 12:47] LABS: Glucose,Whole Blood 78 mg/dL (75-99)
[2020-10-21 14:53] VITALS: BMI 19.2
--- NOTE | 2020-10-21 15:44 | CONS ---
CONSULTATION DATE OF SERVICE: 10/21/2020 PURPOSE FOR CONSULTATION: Evaluate for altered mental status and hallucinations. INTERVAL HISTORY: Patient continues to show ups and downs in his thinking and function. He had a quiet day yesterday. He was showing some mild improvement in cognition. He slept fair last night. Today Nursing have noted that he has had a lot of disorganized thinking; at one moment he will be interacting appropriately and appear to be in a good mood, then very quickly he can change to where he becomes paranoid. He starts getting intense and says people are talking about him. He will walk out in the freeman and be in a very distressed state. Staff have noted that sometimes he will get up from his seat or bed and be wobbly on his feet, and then at other times he can walk without difficulty. He ripped out his IV. At times he will be confused about his circumstances. When I saw him today, he was sitting in his room. He had a quiet manner. He answered some questions directly. He did not know what day of the week it was. He did know he was in [facility] in [place]. When I talked to him about the probable transfer from the medical floor to the psychiatric unit, he said that would be fine and that he just needs to go home and take care of some business before he was admitted. He did not seem to understand very well what the situation would be for his transfer. ASSESSMENT: I will continue the current diagnosis and treatment plan. The patient continues to show significant disordered thinking. I will increase his Zyprexa from 10 mg twice a day up to 10 mg 3 times a day. I reviewed issues with the nurse and would look at transfer to the psychiatric unit. MMODL / IJN: [id number] /
[2020-10-21] MEDS: HALOPERIDOL LACTATE 5 MG/ML 1 ML VIAL IM PRN ×3 (15:50→22:15)
--- NOTE | 2020-10-21 16:56 | P.DS ---
Providers Date of admission: 10/15/20 19:50 Expected date of discharge: 10/21/20 Attending physician: Aries Ma Consults: 10/15/20 19:48 Consult Physician Routine Consulting Provider: Maxwell Hooks Consult Reason/Comments: seizures Do you want consulting provider notified?: Already Contacted 10/16/20 11:27 Consult Physician Routine Consulting Provider: Juan Alberto Mac Consult Reason/Comments: auditory hallucinations. Paranoid Do you want consulting provider notified?: Yes 10/16/20 11:29 Consult Physician Routine Consulting Provider: Eric Tinajero Consult Reason/Comments: Syncope Do you want consulting provider notified?: Yes 10/16/20 11:40 Consult Physician Routine Consulting Provider: Wong Beatty Consult Reason/Comments: Hx of cardiomyopathy, ablation with episode of unresponsiveness Do you want consulting provider notified?: Yes Primary care physician: [facility] Course: Discharge diagnosis 1. 2 episodes of fall with at least one episode of loss of consciousness with head trauma, possible seizure activity, patient was maintained on Vimpat 100 mg twice daily however he stated that he has not taken that for several days, Vimpat was restarted neurology consultation requested. Patient evaluated by neurology services and cleared for discharge 2. Head trauma no evidence of intracranial bleeding on computed tomography scan 3. Fall with loss of consciousness possible seizure activity, however other causes of syncope will be evaluated echocardiogram and cardiology consultation are requested 4. Recent alcohol intake, alcohol level was less then 10 in the emergency room, will monitor for any evidence of delirium tremens 5. Underlying history of hypothyroidism patient was maintained on Synthroid 100 g daily , TSH is elevated however it does not appear that patient was taking his medication on a regular basis, will continue with the same dose at this time patient was counseled extensively in regard to taking medication on a regular basis. 6. Underlying history of hyperlipidemia maintained on Crestor 7. Underlying history of depression maintained on Prozac Hospital course: Marco Antonio South, is a 50 year-old male who presented to [facility] emergency room with a chief complaint of confusion patient stated that he fell twice in the last 2 days and hit his head, patient has a known history of seizure disorder and is maintained on Vimpat however he stated that he stopped taking Vimpat few days ago he was drinking alcohol for several days and subsequently he was confused and having falls. He was evaluated in the emergency room vital examination on presentation reveals a temperature of 97.4 pulse 73 respiration 16 blood pressure 139/87 pulse ox 92% on room air laboratory data revealed a white blood count of 4.1 hemoglobin 14.1 platelet count 1:15 sodium 143 potassium 3.9 chloride 107 CO2 27 BUN 11 creatinine 0.71 TSH was 5.35 computed tomography scan of the head and cervical spine was done in the emergency room and revealed cerebral atrophy and chronic white matter changes no acute intracranial abnormality no cervical spine abnormality EKG revealed sinus bradycardia otherwise normal EKG. On 10/17/2020atient was seen and examined on the medical floor, he is alert and oriented x 3 in no distress, he denies any complaints there is no fever or chills no headache or dizziness no chest pain no shortness of breath no palpitation no cough no nausea or vomiting no abdominal pain no diarrhea no blood in the stools no burning with urination no frequency or urgency and no hematuria, there is no weakness or numbness in any of the extremities no change in vision speech or gait. Patient is starting to have some hand tremor, will start CIWA protocol, and continue to monitor closely. On 10/18/2020 Patient was seen and examined on the medical floor, he is alert and oriented x 3 in no distress, he denies any complaints there is no fever or chills no headache or dizziness no chest pain no shortness of breath no palpitation no cough no nausea or vomiting no abdominal pain no diarrhea no blood in the stools no burning with urination no frequency or urgency and no hematuria, there is no weakness or numbness in any of the extremities no change in vision speech or gait. Patient is starting to have some hand tremor, Patient had episodes of agitation last night, he was evaluated by psychiatry and started on Haldol. On 10/19/2020 patient was seen and examined on the medical floor he is sleepy confused and talking to himself at this time he is able to arouse and answer a few questions he is denying any symptoms at this time, neurology and psychiatry are following medication and labs were reviewed On 10/20/2020 patient is alert and oriented 3 currently answering all questions. Patient cleared by neurology service services restarted on Vimpat. Discussed case with psychiatry services patient may be DC'd on Zyprexa decreased dose of 10 mg at night. Patient advised the importance of compliance with medication and sustaining from alcohol consumption. Also discussed case with patient's mother and updated on plan of care. Patient will be DC'd home recommend home healthcare services. Patient denies chest pain or shortness breath. Patient denies nausea vomiting or diarrhea. Patient denies any urinary burning or frequency. On 10/21/2020 patient was seen and examined on the medical floor he is alert slightly agitated in no apparent distress he has a sitter with him he was reevaluated again today by psychiatry and the recommendation is to transfer to the psychiatry unit when he is medically clear. Patient physical exam is within normal limits his vital exam reveals a temperature of 98 pulse 66 respiration 16 blood pressure 145/93 pulse ox 96% on room air all labs were reviewed. Patient is medically stable and cleared to be discharged to the psych unit today Patient Condition at Discharge: Stable Plan - Discharge Summary Discharge Rx Participant: No New Discharge Prescriptions: New Thiamine [Vitamin B-1] 100 mg PO BID-W/MEALS 30 Days #30 tab OLANZapine [ZyPREXA] 10 mg PO DAILY 30 Days #30 tab Lacosamide [Vimpat] 150 mg PO BID 30 Days #180 tablet Continue allopurinoL [Zyloprim] 100 mg PO DAILY #30 tab FLUoxetine HCL [PROzac] 40 mg PO DAILY #30 capsule Cholecalciferol (Vitamin D3) [Vitamin D3] 50 mcg PO DAILY Metoprolol Succinate [Toprol XL] 25 mg PO BID lisinopriL [Zestril] 2.5 mg PO DAILY Baclofen 10 mg PO BID PRN PRN Reason: MUSCLE SPASM Rosuvastatin Calcium [Crestor] 5 mg PO DAILY Levothyroxine Sodium 100 mcg PO DAILY Discontinued clonazePAM [KlonoPIN] 1 mg PO HS clonazePAM [KlonoPIN] 0.5 mg PO DAILY@0900,1400 Discharge Medication List FLUoxetine HCL [PROzac] 40 mg PO DAILY #30 capsule 06/21/18 [Rx] allopurinoL [Zyloprim] 100 mg PO DAILY #30 tab 06/21/18 [Rx] Cholecalciferol (Vitamin D3) [Vitamin D3] 50 mcg PO DAILY 08/20/18 [History] Metoprolol Succinate [Toprol XL] 25 mg PO BID 12/24/19 [History] lisinopriL [Zestril] 2.5 mg PO DAILY 12/24/19 [History] Baclofen 10 mg PO BID PRN 08/30/20 [History] Levothyroxine Sodium 100 mcg PO DAILY 10/15/20 [History] Rosuvastatin Calcium [Crestor] 5 mg PO DAILY 10/15/20 [History] Lacosamide [Vimpat] 150 mg PO BID 30 Days #180 tablet 10/20/20 [Rx] OLANZapine [ZyPREXA] 10 mg PO DAILY 30 Days #30 tab 10/20/20 [Rx] Thiamine [Vitamin B-1] 100 mg PO BID-W/MEALS 30 Days #30 tab 10/20/20 [Rx] Follow up Appointment(s)/Referral(s): Aries Ma MD [Primary Care Provider] - 1-2 days Activity/Diet/Wound Care/Special Instructions: Activity as tolerated Diet heart healthy Discharge Disposition: HOME WITH HOME HEALTH SERVICES
[2020-10-21 16:58] LABS: Glucose,Whole Blood 91 mg/dL (75-99)
[2020-10-21] MEDS: BACLOFEN 10 MG TAB PO PRN (20:04)
[2020-10-21 20:48] LABS: Glucose,Whole Blood 89 mg/dL (75-99)
[2020-10-21 22:00] VITALS: RESP 18
[2020-10-22] MEDS: HALOPERIDOL LACTATE 5 MG/ML 1 ML VIAL IM PRN (00:21)
[2020-10-22] MEDS ORDERED: diphenhydrAMINE 50 MG/ML 1 ML VIAL IM STA (01:17)
[2020-10-22] MEDS ORDERED: LORazepam 2 MG/ML INJ IV STA (01:18)
[2020-10-22] MEDS: SODIUM CHLORIDE 0.9% 1,000 ML IV SCH ×2 (01:29→06:49)
[2020-10-22 02:15] LABS: Glucose,Whole Blood 70 mg/dL (75-99)
[2020-10-22] MEDS ORDERED: DEXTROSE 50% SYRINGE 50 ML IVP STA (02:17)
[2020-10-22 06:26] LABS: Glucose,Whole Blood 70 mg/dL (75-99)
[2020-10-22] MEDS: LEVOTHYROXINE 100 MCG TAB PO SCH (06:49)
[2020-10-22] MEDS: THIAMINE 100 MG TAB PO SCH ×2 (06:49→10:06)
[2020-10-22] MEDS: LACOSAMIDE 50 MG TABLET PO SCH (10:02)
[2020-10-22] MEDS: FLUoxetine HCL 20 MG CAP PO SCH (10:02)
[2020-10-22] MEDS: OLANZapine 10 MG TAB PO SCH (10:02)
[2020-10-22] MEDS: METOPROLOL SUCCINATE (ER) 25 MG TAB.ER.24H PO SCH (10:02)
[2020-10-22] MEDS: allopurinoL 100 MG TAB PO SCH (10:03)
[2020-10-22] MEDS: CHOLECALCIFEROL 25 MCG (1000 IU) TABLET PO SCH (10:03)
[2020-10-22] MEDS: ATORVASTATIN 10 MG TAB PO SCH (10:05)
--- NOTE | 2020-10-22 10:46 | P.PN ---
Subjective Progress Note Date: 10/22/20 Marco Antonio South, is a 50 year-old male who presented to [facility] emergency room with a chief complaint of confusion patient stated that he fell twice in the last 2 days and hit his head, patient has a known history of seizure disorder and is maintained on Vimpat however he stated that he stopped taking Vimpat few days ago he was drinking alcohol for several days and subsequently he was confused and having falls. He was evaluated in the emergency room vital examination on presentation reveals a temperature of 97.4 pulse 73 respiration 16 blood pressure 139/87 pulse ox 92% on room air laboratory data revealed a white blood count of 4.1 hemoglobin 14.1 platelet count 1:15 sodium 143 potassium 3.9 chloride 107 CO2 27 BUN 11 creatinine 0.71 TSH was 5.35 computed tomography scan of the head and cervical spine was done in the emergency room and revealed cerebral atrophy and chronic white matter changes no acute intracranial abnormality no cervical spine abnormality EKG revealed sinus bradycardia otherwise normal EKG. On 10/17/2020atient was seen and examined on the medical floor, he is alert and oriented x 3 in no distress, he denies any complaints there is no fever or chi lls no headache or dizziness no chest pain no shortness of breath no palpitation no cough no nausea or vomiting no abdominal pain no diarrhea no blood in the stools no burning with urination no frequency or urgency and no hematuria, there is no weakness or numbness in any of the extremities no change in vision speech or gait. Patient is starting to have some hand tremor, will start CIWA protocol, and continue to monitor closely. On 10/18/2020 Patient was seen and examined on the medical floor, he is alert and oriented x 3 in no distress, he denies any complaints there is no fever or chills no headache or dizziness no chest pain no shortness of breath no palpitation no cough no nausea or vomiting no abdominal pain no diarrhea no blood in the stools no burning with urination no frequency or urgency and no hematuria, there is no weakness or numbness in any of the extremities no change in vision speech or gait. Patient is starting to have some hand tremor, Patient had episodes of agitation last night, he was evaluated by psychiatry and started on Haldol. On 10/19/2020 patient was seen and examined on the medical floor he is sleepy confused and talking to himself at this time he is able to arouse and answer a few questions he is denying any symptoms at this time, neurology and psychiatry are following medication and labs were reviewed On 10/20/2020 patient is currently resting comfortably in bed. Plans for discharge today to mental health unit. Paperwork completed. At this time patient is medically stable for discharge Objective - Vital Signs Vital signs: Vital Signs Temp 98 F 10/21/20 20:00 Pulse 62 10/21/20 20:00 Resp 18 10/21/20 20:00 BP 141/79 10/21/20 20:00 Pulse Ox 96 10/21/20 20:00 Intake & Output 10/21/20 10/22/20 10/22/20 18:59 06:59 18:59 Intake Total 564 480 Balance 564 480 Weight 54.1 kg 54 kg Intake: Oral 564 480 Other: Voiding Method Urinal Urinal # Voids 3 1 - Exam In general patient is alert and oriented ?-3 in no distress HEENT head normocephalic and atraumatic Neck is supple no JVD no goiter no lymphadenopathy no carotid bruit Chest examination is clear to auscultation no crackles no wheezing Cardiac exam reveals regular heart sounds S1 and S2 no gallops no murmurs Abdomen is soft nontender no organomegaly with normal bowel sounds Extremity exam reveals no edema no cyanosis or clubbing Neurological examination reveals no gross focal deficits - Labs CBC & Chem 7: 10/20/20 09:31 10/20/20 09:31 Labs: Abnormal Lab Results - Last 24 Hours (Table) 10/22/20 10/22/20 Range/Units 02:05 06:20 POC Glucose (mg/dL) 70 L 70 L (75-99) mg/dL Assessment and Plan Plan: 1. 2 episodes of fall with at least one episode of loss of consciousness with h ead trauma, possible seizure activity, patient was maintained on Vimpat 100 mg twice daily however he stated that he has not taken that for several days, Vimpat was restarted neurology consultation requested 2. Head trauma no evidence of intracranial bleeding on computed tomography scan 3. Fall with loss of consciousness possible seizure activity, however other causes of syncope will be evaluated echocardiogram and cardiology consultation are requested 4. Recent alcohol intake, alcohol level was less then 10 in the emergency room, will monitor for any evidence of delirium tremens 5. Underlying history of hypothyroidism patient was maintained on Synthroid 100 g daily , TSH is elevated however it does not appear that patient was taking his medication on a regular basis, will continue with the same dose at this time patient was counseled extensively in regard to taking medication on a regular basis. 6. Underlying history of hyperlipidemia maintained on Crestor 7. Underlying history of depression maintained on Prozac At this time medication and labs were reviewed Neurology consultation and cardiology consultation were requested Vimpat was restarted Will follow closely Discharged today to mental health unit
[2020-10-22 11:35] LABS: Glucose,Whole Blood 79 mg/dL (75-99)
[2020-10-22 11:43] VITALS: BP 161/80; PULSE 69; TEMP 97.6
--- NOTE | 2020-10-22 15:42 | CDI ---
Documentation Clarification Form Date: 10/22/2020 03:37PM From: Stefania Vega RN CCDS Admit Date: 10/15/2020 07:50:00 PM Patient Name: Marco Antonio South Visit Number: [id number] Discharge Date: ATTENTION: The Clinical Documentation Specialists (CDI) and [facility] Coding Staff appreciate your assistance in clarifying documentation. Please respond to the clarification below the line at the bottom and electronically sign. The CDI & [facility] Coding staff will review the response and follow-up if needed. Please note: Queries are made part of the Legal Health Record. If you have any questions, please contact the author of this message via ITS. Dr. Aries Ma, The patients principal diagnosis the diagnosis that was chiefly responsible for the admission - has not been clearly identified and clarification is requested. The patient presented with the following symptoms and/or diagnoses: Head Trauma, no evidence of intracranial bleeding. Fall with loss of consciousness possible seizure activity. History/Risk factors:50-year-old male presents to the ED with confusion who stated, he fell twice in the last two days hitting his head. known history of seizure disorder and is maintained on Vimpat however he stated that he stopped taking Vimpat few days ago he was drinking alcohol for several days and subsequently confused and having falls. Medical history: CVA/TIA, HTN, Chest pain, Angina and Seizures. Clinical Indicators: 10/20 Neuro PN: Sitter was present, who states patient is actively hallucinating, thinking paper towel dispenser is a bomb, which makes him upset. He is often asking for beer, laughing, busy with conversation with himself. Lab findings: Radiology findings CT Brain / Spine: Cerebral atrophy and chronic white matter changes. No acute abnormality. Negative CT scan of the cervical spine. Vital Signs: 10/15 BP 139/87; HR 73; Temp 97.4; RR 16; Spo2 92% ra Consults: Psychology PN 10/21: Patient continues to show ups and downs in his thinking and function. He had a quiet day yesterday. He is showing some mild improvement in cognition. Today nursing noted that he has had a lot of disorganized thinking; at one moment he will be interacting appropriately and appear to be in a good mood, then very quickly he can change to where he becomes paranoid. Neurology PN 10/20: Acute psychosis with auditory hallucinations resolved. Possible alcohol withdrawal. Recurrent falls. Unsure exactly possibly medication effect (combination of Klonopin, Baclofen and alcohol). Few episodes of loss of consciousness. Possibly seizure (possibly provoked). He missed last two days of Vimpat. Rule out cardiac in etiology. Seizure disorder. Alcohol use. Treatment: 10/16 Prozac 40mg PO daily; 10/16 Haldol 2mg IM X1; 10/17 Ativan 1mg IV Q 1 HR PRN CIWA; 10/18 Haldol 5mg IM PRN acute agitation; 10/16 Vimpat 150mg PO BID; 10/16 Zyprexa 5mg PO HS changed 10/18 to 10mg PO BID changed 10/21 to 10mg PO TID; 10/22 Ativan 2mg IV x1. In your professional opinion, can you please clarify which diagnosis, after study, was the reason chiefly responsible for the admission? [ ] Acute Psychosis due to unknown reason. [ ] Psychosis due to known mental illness [ ] Postictal state 2nd to seizure due to missed medications [ ] Head injury with LOC please specify length if known [ ] ETOH with withdrawals [ ] Poisoning Due to alcohol use and medications [ ] Other, please specify [ ] Unable to determine (Template Last Revised: August 2020) Acute psychosis due to unknown reason MTDD
--- NOTE | 2020-10-24 16:17 | P.PN ---
Subjective Progress Note Date: 10/21/20 10/21/2020: Patient was seen for a follow-up. Patient's sister is also present. Patient continues to be slightly paranoid, pacing, confused. He has been obsessed about his backpack, and tries to put stuff in and then out. This keeps him busy otherwise he is very anxious, up and down, paranoid and pieces confused. Patient is being transferred to psych unit. 10/20/2020: Patient was sitting in the chair. Patient appears very comfortable. Mentation appears normal. Offers no complaints. 10/19/2020: Patient is much more alert and awake. Able to answer appropriately. Patient states "I am getting better, my energy is getting up there". Speech is much more clear. Not hallucinating actively. Affect much better. He offers no complaints. No headache. No problem with the vision. 10/18/2020: Patient was seen for a follow-up. Patient initially seen by Dr. Maxwell Hooks. Please refer to his note for details. Patient came to the hospital for recurrent falls. Patient was having auditory hallucinations. He also has history of seizures for which she is on Vimpat 100 mg twice a day, also on Klonopin. Patient has history of alcoholism. Patient has cardiomyopathy. Patient is laying in the bed, appears psychotic. Patient talking to himself, smiling for no reason. Patient is on 4 points restraints. Sitter was present, who states patient is actively hallucinating, thinking paper towel dispenser is a bomb, which makes him upset. He is having full conversation 4 hours with his niece and sister, who were not present in the room. He gets upset, as they do not follow what he is telling him to do, although nobody is there. He thought he was on a boat and felt a boat was thinking. Later he felt he was on a train, and all passengers in the train were doing drugs and he wanted to get off the train. He is often asking for beer, laughing, busy with conversation with himself. Telemetry monitoring showing sinus rhythm. Objective - Vital Signs Vital signs: Vital Signs Temp 98.0 F 10/21/20 15:54 Pulse 54 L 10/21/20 15:54 Resp 16 10/21/20 15:54 BP 146/90 10/21/20 15:54 Pulse Ox 96 10/21/20 15:54 Intake & Output 10/21/20 10/21/20 10/22/20 06:59 18:59 06:59 Intake Total 240 564 Output Total 950 Balance -710 564 Weight 54.1 kg 54.1 kg Intake: Oral 240 564 Output: Urine 950 Other: Voiding Method Urinal Urinal # Voids 1 3 - Exam Patient is alert and awake, appears very anxious, speaks in very low tone. Patient states is September and the year is 2020. He states is in [facility] in [place]. Patient can name and repeat very well. No paraphasic errors. No double vision. Extraocular muscles intact, face is symmetric. He has slight left facial asymmetry, but is natural it appears, and has been present since admission. Muscle strength is normal. Reflexes are 2+ and plantars are withdrawal. - Labs CBC & Chem 7: 10/20/20 09:31 10/20/20 09:31 Assessment and Plan Assessment: * Acute psychosis with auditory hallucinations. Possible alcohol withdrawal. Patient had improved, but now again relapsed. Appears very paranoid, anxious. * Recurrent falls. Unsure exact exactly. Possibly medication effect (combination of Klonipin, Baclofen and alcohol). Rule out cardiac in etiology. Today he is walking without any issues. * Few episode of loss of consciousness. Possibly seizure (possibly provoked). He missed last two days of Vimpat. Rule out cardiac in etiology. * Seizure disorder. * Alcohol use (he drinks about 2 of 25 oz of beer daily and has not been drinking in last couple days with alcohol level <10.) * Hypothyroidism (with abnormal TSH and T4 on this visit). * Cardiomyopathy * hx of status cardiac ablation Plan: * Psychiatry following the patient. Patient probably going to be transferred to psych unit. Neurology examination is nonfocal. * Patient has history of seizure disorder, currently on Vimpat 150 mg twice a day. * Continue thiamine. * Toxicology screen is positive for benzo. Serum alcohol was less than 10. * Orthostatics negative. * Vitamin B12: 577 (normal) and folate level: 13.3 (normal). * 2-D echo was reported as left ventricle wall thickness is normal. Ejection fraction of 50-55%. Left atrium size is normal. * Neurology will sign off. Please reconsult if any concerns.
== END 2020-10-22 14:59 | DRG 885 ==
LOC: EC 14:51 → 3SCARD 19:50
PROVIDERS: ADMIT Internal Medicine; ATTEND Internal Medicine
DX: F23 Brief psychotic disorder (principal); S06.9X9A Unspecified intracranial injury with loss of consciousness of unspecified duration, initial encounter; F05 Delirium due to known physiological condition; G93.40 Encephalopathy, unspecified; I42.9 Cardiomyopathy, unspecified; E03.9 Hypothyroidism, unspecified; E78.5 Hyperlipidemia, unspecified; F10.10 Alcohol abuse, uncomplicated; F32.9 Major depressive disorder, single episode, unspecified; F41.0 Panic disorder [episodic paroxysmal anxiety]; G31.9 Degenerative disease of nervous system, unspecified; G40.909 Epilepsy, unspecified, not intractable, without status epilepticus; I10 Essential (primary) hypertension; R29.6 Repeated falls; Z91.5 Personal history of self-harm; Z20.822 Contact with and (suspected) exposure to COVID-19; Z79.890 Hormone replacement therapy; Z79.899 Other long term (current) drug therapy; Z86.73 Personal history of transient ischemic attack (TIA), and cerebral infarction without residual deficits; W19.XXXA Unspecified fall, initial encounter; Z91.81 History of falling; R45.1 Restlessness and agitation; Z78.1 Physical restraint status; Z88.0 Allergy status to penicillin; Z88.2 Allergy status to sulfonamides
CPT/HCPCS: 36415; 70450; 71046; 72125; 80053; 80306; 80320; 82140; 82550; 82607; 82746; 82977; 83690; 83735; 83880; 83930; 84439; 84443; 84484; 85025; 87636; 90471; 90715; 93005; 93306; 96374; 99285

== ENCOUNTER 2020-10-22 15:12 | Inpatient (IN) | payer MEDICAID ==
[2020-10-22] MEDS ORDERED: MAG HYDROX/AL HYDROX/SIMETH 30 ML CUP PO PRN (15:38)
[2020-10-22] MEDS ORDERED: MAGNESIUM HYDROXIDE 2,400 MG/10 ML CUP PO PRN (15:38)
[2020-10-22] MEDS ORDERED: ACETAMINOPHEN TAB 325 MG TAB PO PRN (15:38)
[2020-10-22] MEDS ORDERED: BACLOFEN 10 MG TAB PO PRN (15:41)
[2020-10-22] MEDS ORDERED: LORazepam 2 MG/ML INJ IM PRN (15:42)
[2020-10-22] MEDS ORDERED: HALOPERIDOL LACTATE 5 MG/ML 1 ML VIAL IM PRN (15:43)
[2020-10-22] MEDS: OLANZapine 10 MG TAB PO SCH ×2 (16:21→21:36)
[2020-10-22] MEDS: LORazepam 1 MG TAB PO PRN ×2 (16:54→23:20)
[2020-10-22] MEDS: THIAMINE 100 MG TAB PO SCH (16:54)
[2020-10-22 19:50] LABS: Glucose,Whole Blood 139 mg/dL (75-99)
[2020-10-22] MEDS: METOPROLOL SUCCINATE (ER) 25 MG TAB.ER.24H PO SCH (21:36)
[2020-10-23] MEDS: LACOSAMIDE 50 MG TABLET PO SCH ×3 (00:02→22:07)
[2020-10-23] MEDS ORDERED: LORazepam 2 MG/ML INJ IM STA (01:54)
[2020-10-23] MEDS ORDERED: HALOPERIDOL LACTATE 5 MG/ML 1 ML VIAL IM STA (01:54)
[2020-10-23] MEDS ORDERED: HALOPERIDOL LACTATE 5 MG/ML 1 ML VIAL ONE (02:01)
[2020-10-23] MEDS ORDERED: LORazepam 2 MG/ML INJ ONE (02:02)
[2020-10-23 08:00] LABS: Glucose,Whole Blood 73 mg/dL (75-99)
--- NOTE | 2020-10-23 10:07 | P.MDCNMH ---
History of Present Illness H&P Date: 10/23/20 Chief Complaint: Psychosis This is a 50-year-old male patient who is recently admitted to [facility] for confusion and seizures. Patient had recently stopped the medication increased alcohol consumption. Medications were restarted and patient was evaluated by neurology and psychiatry service. Additional medical history includes hyperlipidemia, depression and hypothyroidism. Due to increase epidsodes of psychosis and confusion patient was admitted to mental health unit when medically stable. Today patient is currently resting comfortably in bed mental health unit with one-to-one sitter. According to nursing staff patient had episodes of increased agitation throughout the night requiring treatment with Ativan and Haldol. At this time patient denies chest pain or shortness breath. Patient denies nausea vomiting or diarrhea. Patient denies urinary bu rning or frequency Review of Systems please refer to HPI otherwise unremarkable Past Medical History Past Medical History: Chest Pain / Angina, CVA/TIA, Hyperlipidemia, Hypertension, Seizure Disorder, Thyroid Disorder Additional Past Medical History / Comment(s): States TIA from xrays- no deficits, v-tach, 2 seizures in 03/2016 - then 1 at home , LAST SEIZURE IN 2018 , gout. History of Any Multi-Drug Resistant Organisms: None Reported Past Surgical History: Cardiac Ablation, Heart Catheterization Additional Past Surgical History / Comment(s): Tilt table test, stress test 2017, heart cath 2017. Past Anesthesia/Blood Transfusion Reactions: No Reported Reaction Additional Past Anesthesia/Blood Transfusion Reaction / Comment(s): Never had general anesthesia/transfusions. Past Psychological History: Anxiety, Depression, Panic Disorder Smoking Status: Never smoker Past Alcohol Use History: Abuse Additional Past Alcohol Use History / Comment(s): States he drinks maybe 4 drinks/day. Past Drug Use History: Prescription Drug Abuse - Past Family History Mother History Unknown: Yes Family Medical History: No Reported History Additional Family Medical History / Comment(s): MS Father History Unknown: Yes Additional Family Medical History / Comment(s): BREATHING PROBLEMS Medications and Allergies Home Medications Medication Instructions Recorded Confirmed Type RX: FLUoxetine HCL [PROzac] 40 mg PO DAILY #30 capsule 06/21/18 10/22/20 Rx RX: allopurinoL [Zyloprim] 100 mg PO DAILY #30 tab 06/21/18 10/22/20 Rx RX: Cholecalciferol (Vitamin D3) 50 mcg PO DAILY 08/20/18 10/22/20 History [Vitamin D3] RX: Metoprolol Succinate [Toprol 25 mg PO BID 12/24/19 10/22/20 History XL] RX: lisinopriL [Zestril] 2.5 mg PO DAILY 12/24/19 10/22/20 History RX: Baclofen 10 mg PO BID PRN 08/30/20 10/22/20 History RX: Levothyroxine Sodium 100 mcg PO DAILY 10/15/20 10/22/20 History RX: Rosuvastatin Calcium [Crestor] 5 mg PO DAILY 10/15/20 10/22/20 History RX: Lacosamide [Vimpat] 150 mg PO BID 30 Days #180 tablet 10/20/20 10/22/20 Rx RX: Thiamine [Vitamin B-1] 100 mg PO BID-W/MEALS 30 Days #30 10/20/20 10/22/20 Rx tab RX: OLANZapine [ZyPREXA] 10 mg PO TID tab 10/22/20 10/22/20 Rx Allergies Allergy/AdvReac Type Severity Reaction Status Date / Time amoxicillin Allergy Rash/Hives Verified 10/15/20 16:41 Sulfa (Sulfonamide Allergy Rash/Hives Verified 10/15/20 16:41 Antibiotics) Physical Exam Vitals: Vital Signs Temp Pulse Resp BP Pulse Ox 10/22/20 16:26 97.5 F L 67 14 116/74 96 Intake and Output 10/22/20 10/23/20 10/23/20 22:59 06:59 14:59 Other: Weight 54 kg Head normocephalic Neck supple Lungs clear to auscultation bilaterally no wheezing or crackles Heart regular rate and rhythm S1-S2, no rub or gallop Abdomen is soft nontender nondistended positive bowel sounds no hepatosplenomegaly Extremities no edema Neuro alert and orientated to 3. Sleepy but responds to questions appropriately at this time Cranial Nerve Examination - Cranial Nerves Cranial Nerve I- Olfactory: Intact Cranial Nerve II- Optic: Intact Cranial Nerve III- Oculomotor: Intact Cranial Nerve IV- Trochlear: Intact Cranial Nerve V- Trigeminal: Intact Cranial Nerve - Abducens: Intact Cranial Nerve VII- Facial: Intact Cranial Nerve VIII- Auditory: Intact Cranial Nerve IX- Glossopharyngeal: Intact Cranial Nerve X- Vagus: Intact Cranial Nerve XI- Accessory: Intact Cranial Nerve XII- Hypoglossal: Intact Results Labs: Abnormal Lab Results - Last 24 Hours (Table) 10/22/20 10/23/20 Range/Units 19:49 07:58 POC Glucose (mg/dL) 139 H 73 L (75-99) mg/dL Assessment and Plan Assessment: 1. Psychosis with increased agitation and hallucinations. Patient has been admitted to the mental health Unit 2. Recent seizure activity. Patient was restarted on seizure medication evaluated by neurology 3. Recent falls. 4. History of EtOH 5. History of hypothyroidism with medication noncompliance 6. History of hyperlipidemia maintained on statin 7. History of depression Time with Patient: Greater than 30 (Greater than 60% of the total time spent in counseling and coordination of care)
[2020-10-23] MEDS: CHOLECALCIFEROL 25 MCG (1000 IU) TABLET PO SCH (11:51)
[2020-10-23] MEDS: LEVOTHYROXINE 100 MCG TAB PO SCH (11:51)
[2020-10-23] MEDS: FLUoxetine HCL 20 MG CAP PO SCH (11:52)
[2020-10-23] MEDS: ATORVASTATIN 10 MG TAB PO SCH (11:52)
[2020-10-23] MEDS: allopurinoL 100 MG TAB PO SCH (11:52)
[2020-10-23] MEDS: THIAMINE 100 MG TAB PO SCH ×2 (11:52→18:20)
[2020-10-23] MEDS: METOPROLOL SUCCINATE (ER) 25 MG TAB.ER.24H PO SCH ×2 (11:53→22:22)
[2020-10-23] MEDS: OLANZapine 10 MG TAB PO SCH ×3 (11:53→22:07)
[2020-10-23 13:44] LABS: Glucose,Whole Blood 67 mg/dL (75-99)
[2020-10-23 14:12] LABS: Glucose,Whole Blood 108 mg/dL (75-99)
--- NOTE | 2020-10-23 14:47 | P.HP ---
Psychiatric H&P - . H&P Date: 10/23/20 History & Physical: IDENTIFYING DATA: The patient is a 50-year-old single male transfer from medicine service for evaluation of treatment of altered mental status and hallucinations. HISTORY OF PRESENT ILLNESS: I reviewed the medical record and interviewed the patient. He was unable to explain the reason for the transfer to the psychiatric unit. He talked about having seizures, falling at home and hitting his head. He was perseverative and confused. When I specifically asked about psychotic symptoms acknowledged that he sometimes believes that people are talking outside the windows of his home. He described finding himself taking a flashlight and looking outside for the people but not been able to find them. He has similar experience when he was on the medicine unit where he thought staff were talking about him. As evaluated Dr. Donaldson on the medicine unit who diagnosed him with a psychotic disorder and recommended to continue his outpatient dose of Prozac (40 mg) and begin Zyprexa titrating dose to 10 mg 3 times a day. While he was on medicine unit, he was placed on a one-to-one because she was disorganized and at times incoherent. He became aggressive towards staff where he was throwing items and trying to hit and kick staff. He kept trying to leave his room to "get a beer" or a "mixed drink". He thought that his parents were in the room and that he was in his house. Nursing noted that he was unsteady on his feet. When he arrived on the psychiatric unit he was oriented to person only. He told a nurse if he was in a "drug house". He kept trying to open the unit doors and was wandering the unit "aimlessly". The nurses note that his speech was slurred and his statements were nonsensical. He settled after receiving IM injections of Ativan and Haldol. He has no recollection of his behavior yesterday. However, he remains confused. He thought the month was September and the year was 2019. He thought the day was Sunday. He showed impairments in concentration and attention and perseverated on simple tasks. For example, although he was unable to follow a three-step command on the Mini-Mental State Examination, he perseverated on folding the paper and proceeded to falter multiple times until I intervened. PAST PSYCHIATRIC HISTORY: He stated he was admitted to the psychiatric unit "about 12 years ago." I reviewed the past record and could not find documentation of that admission. For the last 7 years he's been meeting with a therapist at [facility] services in [facility]. PAST MEDICAL HISTORY: He has a history of seizure disorder, hypertension, hypothyroid, chest pain, angina and has a history of TIA. ALLERGIES: Amoxicillin, sulfa SUBSTANCE USE HISTORY: He was vague about his substance use history. He alleges that he drinks alcohol couple times per week. However, records suggest that he has a history of heavy alcohol use. He denied participation in a substance abuse treatment program. FAMILY PSYCHIATRIC/SUBSTANCE USE HISTORY: He is unaware of family history of mental health or psychiatric problems. LEGAL HISTORY: According to the [facility] court docket he has a history of DUI, retail fraud, and several counts of indecent exposure. He denied that he is on probation, parole or has pending charges. SOCIAL HISTORY: His born and raised in an intact family. He has 1 sister. He graduated from high school and denied that he was in special education. He is unemployed and has no income. He currently lives with his sister. He has applied for so security disability. MENTAL STATUS EXAM: He presented as a thin and disheveled appearing male who had difficulty concentrating and attending to the interview. He had no distinguishing features or prominent physical modalities. He had a blunted facial expression. He was alert and oriented to person and place. He showed psychomotor retardation but no abnormal involuntary movements. His speech was spontaneous but dysarthric and at times disorganized and difficult to understand. His affect was flat. He denied suicidal ideation, wishes or homicidal ideation. He denied feeling hopeless, helpless or worthless. He did not express ideas reference, paranoid ideation or delusions. His thinking was very concrete and not coherent or fully goal directed. He did not appear to be responding to internal stimuli. Global impression of intellect is below average . He is no insight or understanding of his illness or need for treatment. We completed the Mini-Mental State Exam. His Total Score Was 19/30 indicating mild cognitive impairment. He thought the month was September and year was 2019. He thought the day of week was Sunday. He was able to register 3 memory words but cannot remember the words after distraction exercise. He was unable to spell the word "world" backwards. He was unable to repeat the phrase "no if's animals or but's." He perseverated on the three-step command. STRENGTHS: Stable physical health, supportive family, engagement with outpatient mental health services WEAKNESSES: History of alcohol use problems, lack of employment, confusion IMPRESSION: He is a 50-year-old single male who has a history of alcohol use disorder and a seizure disorder. His transfer from medicine for the evaluation treatment of confusion and auditory hallucinations. He described experiencing what appeared to be true auditory hallucinations. In addition, he was confused and disorganized. He shows impairment in concentration, attention, short-term memory as well as executive functioning. The description of his behaviors while he was on medicine unit and when he first returned psychiatric unit is suggestive of of an acute delirium. Patient treated inpatient basis with common of psychopharmacology and multimodal therapy. PRINCIPLE DIAGNOSIS: Acute confusional state, rule out alcohol withdrawal delirium, rule out delirium secondary to seizure disorder, rule out major neurocognitive disorder, unspecified psychotic disorder, seizure disorder, alcohol use disorder unspecified RECOMMENDATION: Admit to the psychiatric unit. Safety precautions. One-to-one supervision due to agitation and confusion. labor relations worker to complete initial psychosocial assessment and coordinate discharge and aftercare secure. Obtain collateral information from family. Continue outpatient medications including allopurinol 100 mg daily, Lipitor 10 mg daily, baclofen 10 mg twice a day when necessary, Prozac 40 mg daily, Vimpat 150 mg twice a day, Synthroid 100 g daily, Zestril 2.5 mg daily, Toprol-XL 25 mg twice a day and vitamin B1 twice a day. Continue Zyprexa 10 mg by mouth 3 times a day. Encourage participation in therapeutic groups and activities. Evaluate clinical status response to treatment daily basis. Allergies Allergy/AdvReac Type Severity Reaction Status Date / Time amoxicillin Allergy Rash/Hives Verified 10/15/20 16:41 Sulfa (Sulfonamide Allergy Rash/Hives Verified 10/15/20 16:41 Antibiotics) Vital Signs Temp 97.5 F L 10/22/20 16:26 Pulse 67 10/22/20 16:26 Resp 14 10/22/20 16:26 BP 116/74 10/22/20 16:26 Pulse Ox 96 10/22/20 16:26 Intake & Output 10/22/20 10/23/2021 18:59 06:59 18:59 Weight 54 kg Laboratory Last Values POC Glucose (mg/dL) 108 mg/dL (75-99) H 10/23/20 14:10 POC Glu Lead Assistant Manager ID Elkin Stevenson 10/23/20 14:10 10/23/20 14:15
[2020-10-23 17:51] LABS: Glucose,Whole Blood 69 mg/dL (75-99)
[2020-10-23 18:45] LABS: Glucose,Whole Blood 84 mg/dL (75-99)
[2020-10-23 20:16] LABS: Glucose,Whole Blood 148 mg/dL (75-99)
[2020-10-24] MEDS: LEVOTHYROXINE 100 MCG TAB PO SCH (06:26)
[2020-10-24 07:44] LABS: Glucose,Whole Blood 84 mg/dL (75-99)
[2020-10-24] MEDS: THIAMINE 100 MG TAB PO SCH ×2 (09:54→18:49)
[2020-10-24] MEDS: allopurinoL 100 MG TAB PO SCH (09:55)
[2020-10-24] MEDS: FLUoxetine HCL 20 MG CAP PO SCH (09:55)
[2020-10-24] MEDS: CHOLECALCIFEROL 25 MCG (1000 IU) TABLET PO SCH (09:55)
[2020-10-24] MEDS: ATORVASTATIN 10 MG TAB PO SCH (09:55)
[2020-10-24] MEDS: LACOSAMIDE 50 MG TABLET PO SCH (09:55)
[2020-10-24] MEDS: OLANZapine 10 MG TAB PO SCH ×3 (09:56→21:04)
[2020-10-24] MEDS: METOPROLOL SUCCINATE (ER) 25 MG TAB.ER.24H PO SCH ×2 (09:56→20:53)
--- NOTE | 2020-10-24 12:27 | P.PN ---
Progress Note - Text Progress Note Date: 10/24/20 Clinical Problems: Acute confusional state, rule out alcohol withdrawal delirium, rule out delirium secondary to seizure disorder, rule out major neurocognitive disorder, seizure disorder, alcohol use disorder severe Interim history: I reviewed the medical record and interviewed the patient. He was confused but pleasant. He denied problems or concerns. He was again confused yesterday evening. He remains on one-to-one due to the confusion and restlessness. Nursing noted that he displayed "bizarre behaviors" and appeared to be responding to internal stimuli. He was frequently checking doors and exits. He has no recollection of his behavior yesterday evening. He specifically denied as been experiencing auditory, visual or olfactory hallucinations. Mental status exam: He presented as a thin and almost frail-appearing 50-year-old male with a pale complexion. He made eye contact and appeared to attend to the interview. He had no prominent physical abnormalities. He had a blunted facial expression. He showed psychomotor retardation but no abnormal movements. He did not have a hand tremor. His speech was spontaneous, dysarthric and difficult to understand. His affect was anxious. He did not express suicidal ideation, wishes or depressive cognitions. He was rum inative but did not express clear delusional thoughts. His thinking was concrete and coherent and organized. He did not appear to be responding to internal stimuli. He is oriented to person and place. He thought the date was 10/07/2020. Assessment: He remains confused and disorganized. He has intermittent periods of increasing confusion occur mainly in the evening. He continued show choir o ne-to-one due to the level of his confusion. Plan: Continue inpatient treatment. Safety precautions. Continue one-to-one. Continue medications including allopurinol 100 mg daily, Lipitor 10 mg daily, baclofen 10 mg twice a day when necessary, Prozac 40 mg daily, Vimpat 150 mg twice a day, Synthroid 100 g daily, Zestril 2.5 mg daily, Toprol-XL 25 mg twice a day and vitamin B1 twice a day. Continue Zyprexa 10 mg by mouth 3 times a day. Encourage participation in therapeutic groups and activities. Evaluate clinical status response to treatment daily basis.
[2020-10-24 12:38] LABS: Glucose,Whole Blood 89 mg/dL (75-99)
[2020-10-24 20:01] LABS: Glucose,Whole Blood 101 mg/dL (75-99)
[2020-10-24] MEDS: LACOSAMIDE 150 MG TABLET PO SCH (20:52)
[2020-10-25 07:57] LABS: Glucose,Whole Blood 74 mg/dL (75-99)
[2020-10-25] MEDS: THIAMINE 100 MG TAB PO SCH ×2 (09:37→18:04)
[2020-10-25] MEDS: METOPROLOL SUCCINATE (ER) 25 MG TAB.ER.24H PO SCH ×2 (09:37→22:20)
[2020-10-25] MEDS: CHOLECALCIFEROL 25 MCG (1000 IU) TABLET PO SCH (09:37)
[2020-10-25] MEDS: FLUoxetine HCL 20 MG CAP PO SCH (09:38)
[2020-10-25] MEDS: LEVOTHYROXINE 100 MCG TAB PO SCH (09:38)
[2020-10-25] MEDS: OLANZapine 10 MG TAB PO SCH ×3 (09:38→22:20)
[2020-10-25] MEDS: allopurinoL 100 MG TAB PO SCH (09:38)
[2020-10-25] MEDS: ATORVASTATIN 10 MG TAB PO SCH (09:38)
[2020-10-25] MEDS: LACOSAMIDE 150 MG TABLET PO SCH ×2 (09:38→22:20)
--- NOTE | 2020-10-25 11:08 | P.PN ---
Progress Note - Text Progress Note Date: 10/25/20 Interval History: Patient was seen resting in bed and was directable and agreeable to speak with the handbook writer in his room. The patient is unable to provide the events leading to his hospitalization. He does express that he is feeling better than he has over the past few days. He is not reporting any suicidal or homicidal ideation, intention, and/or plan. He is not reporting any auditory or visual hallucinations. He is not reporting any paranoia or other delusions. The patient has been adherent with his medications and is not reporting any cinnamon side effects at this time. Prior to this admission, the patient has been living with his sister. The patient has been noted by staff to be increasingly confused and that is why he is on a one-to-one supervision. The patient often requires much redirection and at times displays very bizarre behaviors. He does have significant history of heavy alcohol use which may have contributed to his current confusion. Mental Status Exam: General Appearance: Patient appears to be stated age is alert, directable, and cooperative. Patient appears to be very frail and thin. Behavior: Patient is calmly seated without any agitated behavior. Eye contact is appropriate. Psychomotor activity appears normal. Speech: Patient's speech is fluent and nonpressured. Mood/Affect: Mood is improving mildly, affect is congruent and blunted. Suicidality/Homicidality: Patient denies having any suicidal or homicidal ideation intent or plan. Perceptions: Patient denies any visual hallucinations and denies any auditory hallucinations Though content/process: There is no evidence of any delusional thought content and thought process is linear and logical. Memory and concentration: AOX3, grossly intact for the purposes of this session Judgment and insight: Improving mildly Assessment Psychosis, unspecified - rule out alcohol withdrawal delirium Alcohol use disorder Plan: -Patient continues to meet criteria for inpatient psychiatric admission for symptom stabilization and safety. Patient has signed adult voluntary form. -Medications: Continue Prozac 40 mg by mouth daily for depression/anxiety Continue Zyprexa 10 mg by mouth 3 times a day for psychosis Continue thiamine for supplementation. -When necessary Ativan and Haldol for agitation/aggression. -NRT - nicotine patch -SW on board for discharge planning. Encouraged the patient to participate in milieu.
[2020-10-25 12:55] LABS: Glucose,Whole Blood 125 mg/dL (75-99)
[2020-10-25 17:57] LABS: Glucose,Whole Blood 120 mg/dL (75-99)
[2020-10-26] MEDS: LEVOTHYROXINE 100 MCG TAB PO SCH (06:09)
[2020-10-26 06:39] VITALS: TEMP 98
[2020-10-26] MEDS: FLUoxetine HCL 20 MG CAP PO SCH (09:31)
[2020-10-26] MEDS: OLANZapine 10 MG TAB PO SCH (09:31)
[2020-10-26] MEDS: CHOLECALCIFEROL 25 MCG (1000 IU) TABLET PO SCH (09:31)
[2020-10-26] MEDS: THIAMINE 100 MG TAB PO SCH (09:31)
[2020-10-26] MEDS: ATORVASTATIN 10 MG TAB PO SCH (09:31)
[2020-10-26] MEDS: LACOSAMIDE 150 MG TABLET PO SCH (09:32)
[2020-10-26] MEDS: allopurinoL 100 MG TAB PO SCH (09:32)
[2020-10-26] MEDS: LORazepam 1 MG TAB PO PRN (09:33)
[2020-10-26] MEDS: METOPROLOL SUCCINATE (ER) 25 MG TAB.ER.24H PO SCH (10:18)
--- NOTE | 2020-10-26 12:02 | P.DS ---
Providers Date of admission: 10/22/20 15:14 Expected date of discharge: 10/26/20 Attending physician: Molina Manzano MD Consults: 10/22/20 15:38 Consult Physician Routine Consulting Provider: Aries Ma Consult Reason/Comments: medical management Do you want consulting provider notified?: Already Contacted Primary care physician: Aries Ma - Discharge Diagnosis(es) (1) Unspecified psychosis Current Visit: Yes Status: Acute Priority: High (2) Alcohol abuse Current Visit: Yes Status: Chronic Priority: Medium Hospital Course: Admission HPI: Initial psychiatric evaluation was completed by Dr. Allen on 10/23/2020 who wrote: "The patient is a 50-year-old single male transfer from medicine service for evaluation of treatment of altered mental status and hallucinations. I reviewed the medical record and interviewed the patient. He was unable to explain the reason for the transfer to the psychiatric unit. He talked about having seizures, falling at home and hitting his head. He was perseverative and confused. When I specifically asked about psychotic symptoms acknowledged that he sometimes believes that people are talking outside the windows of his home. He described finding himself taking a flashlight and looking outside for the people but not been able to find them. He has similar experience when he was on the medicine unit where he thought staff were talking about him. As evaluated Dr. Donaldson on the medicine unit who diagnosed him with a psychotic disorder and recommended to continue his outpatient dose of Prozac (40 mg) and begin Zyprexa titrating dose to 10 mg 3 times a day. While he was on medicine unit, he was placed on a one-to-one because she was disorganized and at times incoherent. He became aggressive towards staff where he was throwing items and trying to hit and kick staff. He kept trying to leave his room to "get a beer" or a "mixed drink". He thought that his parents were in the room and that he was in his house. Nursing noted that he was unsteady on his feet. When he arrived on the psychiatric unit he was oriented to person only. He told a nurse if he was in a "drug house". He kept trying to open the unit doors and was wandering the unit "aimlessly". The nurses note that his speech was slurred and his statements were nonsensical. He settled after receiving IM injections of Ativan and Haldol. He has no recollection of his behavior yesterday. However, he remains confused. He thought the month was September and the year was 2019. He thought the day was Sunday. He showed impairments in concentration and attention and perseverated on simple tasks. For example, although he was unable to follow a three-step command on the Mini-Mental State Examination, he perseverated on folding the paper and proceeded to falter multiple times until I intervened." Hospital course: Upon admission to the unit patient was initially presenting as significantly confused, disheveled, disorganized, with difficulty comprehending his surroundings. The patient scored a 19 out of 30 in the Mini-Mental Status Examination indicating mild cognitive impairment. He is only alert and oriented to person and place but not to time. Concentration was grossly poor. The patient was also placed on one-to-one supervision due to his significant confusion. The patient was restarted on his home medications which included Prozac, Synthroid, Vimpat, and toprol. The patient was started on Zyprexa 10 mg by mouth 3 times a day for management of psychosis. The course of the hospitalization, the patient displayed bizarre behaviors and had to be redirected multiple times while on the unit. He was adherent with his medications and gradually showed a significant improvement in his cognitive functioning. The patient showed gradual improvement in regards to his cognition, his orientation, and his behaviors. He began to participate in individual and milieu therapies. He was also evaluated by the medical team for history and physical examination. On the day of discharge, the patient is not reporting any suicidal or homicidal ideation, intention, and/or plan. Denies any firearms or other weapons. He is not reporting any auditory or visual hallucinations. He is denying any paranoia or other delusions. He expresses strong desire to live for himself and for his family. The patient does have a significant history of alcohol abuse however was counseled on abstaining from all substances including alcohol and marijuana. It is likely that this admission was precipitated by an acute confusional state related to his medications, or his seizure diagnosis, or precipitated by alcohol withdrawal. On the day of discharge, the patient is not displaying any significant psychotic symptoms. He has been participating in individual and milieu therapies appropriately and no longer requires any redirection. The patient was counseled on his substance abuse and was offered inpatient substance-abuse rehab but declined. The patient was also counseled on his medications and need for regular compliance was encouraged to follow-up with his outpatient appointments for mental health and for primary care. Prior to discharge, family meeting will be arranged with licensed master social worker to answer any questions and ensure safety. Mental status exam: General Appearance: Patient appears to be stated age is alert, pleasant, and cooperative. Patient is in no acute distress and has fair hygiene and grooming. Patient appears to be very frail and thin. Behavior: Patient is calmly seated without any agitated behavior. Eye contact is appropriate. Psychomotor activity appears normal. Speech: Patient's speech is spontaneous, monotone, with otherwise normal rate, volume, and fluency. Mood/Affect: Patient reports their mood is "much better", affect is congruent and euthymic but with constricted range. Suicidality/Homicidality: Patient vehemently denies any suicidal or homicidal ideation, intention, and/or plan. Perceptions: Patient denies any auditory or visual hallucinations. Though content/process: There is no evidence of any delusional thought content and thought process is linear and goal-directed. Memory and concentration: AOX3, grossly intact for the purposes of this session. Can spell "WORLD" backwards correctly. Judgment and insight: Improved with guarded prognosis Impression: Psychosis, unspecified - multiple etiologies if contributed to this presentation including seizure disorder, alcohol withdrawal, polypharmacy Alcohol use disorder Plan: -Continue with discharge today as patient has improved and stabilized psychiatrically and is not currently an imminent threat to himself and/or others. Patient will remain at chronically elevated risk for harm to self and/or others due to his alcohol use -Continue medications: The patient will be discharged with Prozac 40 mg by mouth daily for depression/anxiety, and Zyprexa 10 mg by mouth 3 times a day for psychosis. Patient's home medications will be continued. -Patient was counseled on the need for medication compliance and appropriate follow-up at mental health and also primary care for medical issues. Patient verbalized understanding and agreed. -Social work to arrange for and conduct family meeting to ensure safety upon discharge and answer any questions/concerns. Social work also to arrange for patients follow up appointments with [facility] for psychiatric care along with follow up with primary care provider. -Patient counseled on abstaining from recreational drugs and marijuana and alcohol. Was informed/educated on the adverse effects on their physical and mental health. Patient verbally agreed and understood. Patient was offered substance abuse treatment however declined at this time. -Patient was instructed to return to the hospital or seek immediate medical care if their psychiatric or medical symptoms do worsen or reoccur. -Psychoeducation and supportive therapy provided to patient. Risks and benefits of pharmacological treatment versus the risks and benefits of nontreatment weight and discussed. Informed consent discussion held. Common side effects of psychotropics discussed such as, but not limited to headache, GI disturbance, sexual dysfunction, movement disorders, sedation, and orthostatic hypotension. Life threatening and blackbox warnings of prescribed medications also discussed. Potential risks of operating a vehicle or heavy machinery discussed with patient at length. Advised on importance of compliance and a reliable and responsible manner. Patient advised to review FDA consumer labeling of all medications prior to taking. Patient verbalized understanding of potential risks, and agrees with current treatment plan. Patient advised to medically contact physician/emergency personnel if any acute changes in condition occur. Laboratory Results POC Glucose (mg/dL) 120 mg/dL (75-99) H 10/25/20 17:55 POC Glu Scale Mechanic Teressa Lee 10/25/20 17:55 Vital Signs Temp 98.0 F 10/26/20 06:38 Pulse 55 L 10/26/20 06:38 Resp 17 10/26/20 06:38 BP 149/67 10/26/20 06:38 Pulse Ox 99 10/26/20 06:38 Allergies Allergy/AdvReac Type Severity Reaction Status Date / Time amoxicillin Allergy Rash/Hives Verified 10/15/20 16:41 Sulfa (Sulfonamide Allergy Rash/Hives Verified 10/15/20 16:41 Antibiotics) Patient Condition at Discharge: Stable Plan - Discharge Summary Discharge Rx Participant: No New Discharge Prescriptions: New FLUoxetine HCL [PROzac] 40 mg PO DAILY 30 Days cap Levothyroxine Sodium [Synthroid] 100 mcg PO 0630 30 Days tab OLANZapine [ZyPREXA] 10 mg PO TID 30 Days tab Continue allopurinoL [Zyloprim] 100 mg PO DAILY #30 tab Cholecalciferol (Vitamin D3) [Vitamin D3] 50 mcg PO DAILY Metoprolol Succinate [Toprol XL] 25 mg PO BID lisinopriL [Zestril] 2.5 mg PO DAILY Baclofen 10 mg PO BID PRN PRN Reason: MUSCLE SPASM Rosuvastatin Calcium [Crestor] 5 mg PO DAILY Thiamine [Vitamin B-1] 100 mg PO BID-W/MEALS 30 Days #30 tab Lacosamide [Vimpat] 150 mg PO BID 30 Days #180 tablet Discontinued FLUoxetine HCL [PROzac] 40 mg PO DAILY #30 capsule Levothyroxine Sodium 100 mcg PO DAILY OLANZapine [ZyPREXA] 10 mg PO TID tab Discharge Medication List allopurinoL [Zyloprim] 100 mg PO DAILY #30 tab 06/21/18 [Rx] Cholecalciferol (Vitamin D3) [Vitamin D3] 50 mcg PO DAILY 08/20/18 [History] Metoprolol Succinate [Toprol XL] 25 mg PO BID 12/24/19 [History] lisinopriL [Zestril] 2.5 mg PO DAILY 12/24/19 [History] Baclofen 10 mg PO BID PRN 08/30/20 [History] Rosuvastatin Calcium [Crestor] 5 mg PO DAILY 10/15/20 [History] Lacosamide [Vimpat] 150 mg PO BID 30 Days #180 tablet 10/20/20 [Rx] Thiamine [Vitamin B-1] 100 mg PO BID-W/MEALS 30 Days #30 tab 10/20/20 [Rx] FLUoxetine HCL [PROzac] 40 mg PO DAILY 30 Days cap 10/26/20 [Rx] Levothyroxine Sodium [Synthroid] 100 mcg PO 0630 30 Days tab 10/26/20 [Rx] OLANZapine [ZyPREXA] 10 mg PO TID 30 Days tab 10/26/20 [Rx] Follow up Appointment(s)/Referral(s): [facility] [Outside] - 1 Week Patient Instructions/Handouts: Depression (DC), Alcohol Intoxication (DC) Activity/Diet/Wound Care/Special Instructions: Activity and diet as tolerated. Avoid the use of street drugs and alcohol. Take all medications as prescribed. When you are in need of refills on your medications please contact your medical provider and/or outpatient psychiatrist to have this done. Please go to scheduled outpatient appointment for aftercare treatment. If symptoms return or become worse, call the crisis line at and/or go to the nearest emergency room for evaluation. Discharge Disposition: HOME SELF-CARE
[2020-10-26 12:03] VITALS: BP 87/54; PULSE 87; RESP 16
== END 2020-10-26 14:30 | disposition home or self-care (01) | DRG 885 ==
LOC: 3MHU 15:14
PROVIDERS: ADMIT Psychiatry & Neurology Psychiatry; ATTEND Psychiatry & Neurology Psychiatry
DX: F29 Unspecified psychosis not due to a substance or known physiological condition (principal); F10.239 Alcohol dependence with withdrawal, unspecified; E03.9 Hypothyroidism, unspecified; F32.9 Major depressive disorder, single episode, unspecified; F41.9 Anxiety disorder, unspecified; G31.84 Mild cognitive impairment of uncertain or unknown etiology; G40.909 Epilepsy, unspecified, not intractable, without status epilepticus; I10 Essential (primary) hypertension; Z56.0 Unemployment, unspecified; Z79.899 Other long term (current) drug therapy; Z86.73 Personal history of transient ischemic attack (TIA), and cerebral infarction without residual deficits

== ENCOUNTER 2020-12-05 16:16 | Inpatient (IN) | payer OTHER ==
[2020-12-05 16:40] LABS: Glucose,Whole Blood 97 mg/dL (75-99)
--- NOTE | 2020-12-05 16:51 | ED ---
General Adult HPI - General Chief complaint: Altered Mental Status Stated complaint: Altered mental status Time Seen by Provider: 12/05/20 16:31 Source: patient, family, RN notes reviewed Mode of arrival: wheelchair Limitations: no limitations - History of Present Illness Initial comments: Patient is a pleasant 50-year-old male presenting to the emergency department with concern for change in mental status. Patient is a poor historian and offers little information. History comes from family. Patient does have history of similar symptoms previously several times with several factors including alcohol or drug use, seizures, or TIAs. Patient denies any alcohol or drug use. Patient did have a fall today with a mild bloody nose. Patient symptoms started prior to the fall and have not worsened since the fall. No isolated area of weakness. No vomiting. No fevers. Patient states he feels fine and has no complaints. - Related Data Home Medications Medication Instructions Recorded Confirmed Cholecalciferol (Vitamin D3) 50 mcg PO DAILY 08/20/18 10/22/20 [Vitamin D3] Metoprolol Succinate [Toprol XL] 25 mg PO BID 12/24/19 10/22/20 lisinopriL [Zestril] 2.5 mg PO DAILY 12/24/19 10/22/20 Baclofen 10 mg PO BID PRN 08/30/20 10/22/20 Rosuvastatin Calcium [Crestor] 5 mg PO DAILY 10/15/20 10/22/20 Previous Rx's Medication Instructions Recorded allopurinoL [Zyloprim] 100 mg PO DAILY #30 tab 06/21/18 Lacosamide [Vimpat] 150 mg PO BID 30 Days #180 tablet 10/20/20 Thiamine [Vitamin B-1] 100 mg PO BID-W/MEALS 30 Days #30 10/20/20 tab FLUoxetine HCL [PROzac] 40 mg PO DAILY 30 Days cap 10/26/20 Levothyroxine Sodium [Synthroid] 100 mcg PO 0630 30 Days tab 10/26/20 OLANZapine [ZyPREXA] 10 mg PO TID 30 Days tab 10/26/20 Allergies Allergy/AdvReac Type Severity Reaction Status Date / Time amoxicillin Allergy Rash/Hives Verified 12/05/20 16:24 Sulfa (Sulfonamide Allergy Rash/Hives Verified 12/05/20 16:24 Antibiotics) Review of Systems ROS Statement: Those systems with pertinent positive or pertinent negative responses have been documented in the HPI. ROS Other: All systems not noted in ROS Statement are negative. Constitutional: Denies: fever Eyes: Denies: eye pain ENT: Denies: ear pain Respiratory: Denies: cough Cardiovascular: Denies: chest pain Endocrine: Denies: fatigue Gastrointestinal: Denies: abdominal pain Genitourinary: Denies: dysuria Musculoskeletal: Denies: back pain Skin: Denies: rash Neurological: Reports: as per HPI, confusion. Denies: headache, weakness Past Medical History Past Medical History: Chest Pain / Angina, CVA/TIA, Hyperlipidemia, Hypertension, Seizure Disorder, Thyroid Disorder Additional Past Medical History / Comment(s): States TIA from xrays- no deficits, v-tach, 2 seizures in 03/2016 - then 1 at home , LAST SEIZURE IN 2018 , gout. History of Any Multi-Drug Resistant Organisms: None Reported Past Surgical History: Cardiac Ablation, Heart Catheterization Additional Past Surgical History / Comment(s): Tilt table test, stress test 2017, heart cath 2017. Past Anesthesia/Blood Transfusion Reactions: No Reported Reaction Additional Past Anesthesia/Blood Transfusion Reaction / Comment(s): Never had general anesthesia/transfusions. Past Psychological History: Anxiety, Depression, Panic Disorder Smoking Status: Never smoker Past Alcohol Use History: Abuse Past Drug Use History: Prescription Drug Abuse - Past Family History Mother History Unknown: Yes Family Medical History: No Reported History Additional Family Medical History / Comment(s): MS Father History Unknown: Yes Additional Family Medical History / Comment(s): BREATHING PROBLEMS General Exam Limitations: no limitations General appearance: alert, in no apparent distress Head exam: Present: atraumatic Eye exam: Present: normal appearance, PERRL, other (Patient will not follow fingers to test for extraocular muscles despite multiple attempts) ENT exam: Present: normal oropharynx Neck exam: Present: normal inspection. Absent: tenderness Respiratory exam: Present: normal lung sounds bilaterally Cardiovascular Exam: Present: regular rate, normal rhythm GI/Abdominal exam: Present: soft. Absent: tenderness Extremities exam: Present: normal inspection Neurological exam: Present: alert, oriented X3, CN II-XII intact Expanded Neurological exam: Present: protecting the airway Patient oriented to: Present: person. Absent: place, time Motor strength exam: RUE: 5, LUE: 5, RLE: 5, LLE: 5 Eye Response: (4) open spontaneously Motor Response: (6) obeys commands Verbal Response: (4) confused conversation Psychiatric exam: Present: normal affect, normal mood Skin exam: Present: normal color Course Vital Signs 12/05/20 16:21 Temperature 98.2 F Pulse Rate 72 Respiratory 16 Rate Blood Pressure 148/100 O2 Sat by Pulse 97 Oximetry EKG Findings - EKG Comments: EKG Findings:: Normal sinus rhythm with rate of 73. NE 164. QRS 92. QT 410. QTc 451. Right axis. Normal QRS. No acute ST change. Medical Decision Making - Medical Decision Making Patient reevaluated. Patient and family updated on results and plan. Case was discussed with Dr. Ma, who will admit his patient with neurology consult. - Lab Data Result diagrams: 12/05/20 16:54 12/05/20 16:54 Lab Results 12/05/20 12/05/20 12/05/20 Range/Units 16:38 16:54 16:54 WBC (3.8-10.6) k/uL RBC (4.30-5.90) m/uL Hgb (13.0-17.5) gm/dL Hct (39.0-53.0) % MCV (80.0-100.0) fL MCH (25.0-35.0) pg MCHC (31.0-37.0) g/dL RDW (11.5-15.5) % Plt Count (150-450) k/uL MPV Neutrophils % % Lymphocytes % % Monocytes % % Eosinophils % % Basophils % % Neutrophils # (1.3-7.7) k/uL Lymphocytes # (1.0-4.8) k/uL Monocytes # (0-1.0) k/uL Eosinophils # (0-0.7) k/uL Basophils # (0-0.2) k/uL PT (9.0-12.0) sec INR (<1.2) APTT (22.0-30.0) sec Sodium 145 (137-145) mmol/L Potassium 4.2 (3.5-5.1) mmol/L Chloride 110 H (98-107) mmol/L Carbon Dioxide 29 (22-30) mmol/L Anion Gap 6 mmol/L BUN 17 (9-20) mg/dL Creatinine 0.64 L (0.66-1.25) mg/dL Est GFR (CKD-EPI)AfAm >90 (>60 ml/min/1.73 sqM) Est GFR (CKD-EPI)NonAf >90 (>60 ml/min/1.73 sqM) Glucose 102 H (74-99) mg/dL POC Glucose (mg/dL) 97 (75-99) mg/dL POC Glu Learning Disabled Teacher ID Harry, Carmella Calcium 9.3 (8.4-10.2) mg/dL Total Bilirubin 0.4 (0.2-1.3) mg/dL AST 31 (17-59) U/L ALT 18 (4-49) U/L Alkaline Phosphatase 88 (38-126) U/L Ammonia 12 (<30) umol/L Troponin I (0.000-0.034) ng/mL Total Protein 7.4 (6.3-8.2) g/dL Albumin 4.5 (3.5-5.0) g/dL Urine Color Urine Appearance (Clear) Urine pH (5.0-8.0) Ur Specific [place] (1.001-1.035) Urine Protein (Negative) Urine Glucose (UA) (Negative) Urine Ketones (Negative) Urine Blood (Negative) Urine Nitrite (Negative) Urine Bilirubin (Negative) Urine Urobilinogen (<2.0) mg/dL Ur Leukocyte Esterase (Negative) Urine Opiates Screen (NotDetected) Ur Oxycodone Screen (NotDetected) Urine Methadone Screen (NotDetected) Ur Propoxyphene Screen (NotDetected) Ur Barbiturates Screen (NotDetected) U Tricyclic Antidepress (NotDetected) Ur Phencyclidine Scrn (NotDetected) Ur Amphetamines Screen (NotDetected) U Methamphetamines Scrn (NotDetected) U Benzodiazepines Scrn (NotDetected) Urine Cocaine Screen (NotDetected) U Marijuana (THC) Screen (NotDetected) Serum Alcohol <10 mg/dL 12/05/20 12/05/20 12/05/20 Range/Units 16:54 16:54 16:54 WBC 5.5 (3.8-10.6) k/uL RBC 4.19 L (4.30-5.90) m/uL Hgb 13.6 (13.0-17.5) gm/dL Hct 39.7 (39.0-53.0) % MCV 94.8 (80.0-100.0) fL MCH 32.5 (25.0-35.0) pg MCHC 34.3 (31.0-37.0) g/dL RDW 14.1 (11.5-15.5) % Plt Count 164 (150-450) k/uL MPV 7.0 Neutrophils % 51 % Lymphocytes % 37 % Monocytes % 6 % Eosinophils % 3 % Basophils % 1 % Neutrophils # 2.8 (1.3-7.7) k/uL Lymphocytes # 2.0 (1.0-4.8) k/uL Monocytes # 0.4 (0-1.0) k/uL Eosinophils # 0.2 (0-0.7) k/uL Basophils # 0.0 (0-0.2) k/uL PT 10.1 (9.0-12.0) sec INR 0.9 (<1.2) APTT 24.2 (22.0-30.0) sec Sodium (137-145) mmol/L Potassium (3.5-5.1) mmol/L Chloride (98-107) mmol/L Carbon Dioxide (22-30) mmol/L Anion Gap mmol/L BUN (9-20) mg/dL Creatinine (0.66-1.25) mg/dL Est GFR (CKD-EPI)AfAm (>60 ml/min/1.73 sqM) Est GFR (CKD-EPI)NonAf (>60 ml/min/1.73 sqM) Glucose (74-99) mg/dL POC Glucose (mg/dL) (75-99) mg/dL POC Glu Learning Disabled Teacher ID Calcium (8.4-10.2) mg/dL Total Bilirubin (0.2-1.3) mg/dL AST (17-59) U/L ALT (4-49) U/L Alkaline Phosphatase (38-126) U/L Ammonia (<30) umol/L Troponin I (0.000-0.034) ng/mL Total Protein (6.3-8.2) g/dL Albumin (3.5-5.0) g/dL Urine Color Yellow Urine Appearance Clear (Clear) Urine pH 5.5 (5.0-8.0) Ur Specific [place] 1.014 (1.001-1.035) Urine Protein Negative (Negative) Urine Glucose (UA) Negative (Negative) Urine Ketones Negative (Negative) Urine Blood Negative (Negative) Urine Nitrite Negative (Negative) Urine Bilirubin Negative (Negative) Urine Urobilinogen <2.0 (<2.0) mg/dL Ur Leukocyte Esterase Negative (Negative) Urine Opiates Screen Not Detected (NotDetected) Ur Oxycodone Screen Not Detected (NotDetected) Urine Methadone Screen Not Detected (NotDetected) Ur Propoxyphene Screen Not Detected (NotDetected) Ur Barbiturates Screen Not Detected (NotDetected) U Tricyclic Antidepress Not Detected (NotDetected) Ur Phencyclidine Scrn Not Detected (NotDetected) Ur Amphetamines Screen Not Detected (NotDetected) U Methamphetamines Scrn Not Detected (NotDetected) U Benzodiazepines Scrn Not Detected (NotDetected) Urine Cocaine Screen Not Detected (NotDetected) U Marijuana (THC) Screen Not Detected (NotDetected) Serum Alcohol mg/dL 12/05/20 Range/Units 16:54 WBC (3.8-10.6) k/uL RBC (4.30-5.90) m/uL Hgb (13.0-17.5) gm/dL Hct (39.0-53.0) % MCV (80.0-100.0) fL MCH (25.0-35.0) pg MCHC (31.0-37.0) g/dL RDW (11.5-15.5) % Plt Count (150-450) k/uL MPV Neutrophils % % Lymphocytes % % Monocytes % % Eosinophils % % Basophils % % Neutrophils # (1.3-7.7) k/uL Lymphocytes # (1.0-4.8) k/uL Monocytes # (0-1.0) k/uL Eosinophils # (0-0.7) k/uL Basophils # (0-0.2) k/uL PT (9.0-12.0) sec INR (<1.2) APTT (22.0-30.0) sec Sodium (137-145) mmol/L Potassium (3.5-5.1) mmol/L Chloride (98-107) mmol/L Carbon Dioxide (22-30) mmol/L Anion Gap mmol/L BUN (9-20) mg/dL Creatinine (0.66-1.25) mg/dL Est GFR (CKD-EPI)AfAm (>60 ml/min/1.73 sqM) Est GFR (CKD-EPI)NonAf (>60 ml/min/1.73 sqM) Glucose (74-99) mg/dL POC Glucose (mg/dL) (75-99) mg/dL POC Glu Learning Disabled Teacher ID Calcium (8.4-10.2) mg/dL Total Bilirubin (0.2-1.3) mg/dL AST (17-59) U/L ALT (4-49) U/L Alkaline Phosphatase (38-126) U/L Ammonia (<30) umol/L Troponin I <0.012 (0.000-0.034) ng/mL Total Protein (6.3-8.2) g/dL Albumin (3.5-5.0) g/dL Urine Color Urine Appearance (Clear) Urine pH (5.0-8.0) Ur Specific [place] (1.001-1.035) Urine Protein (Negative) Urine Glucose (UA) (Negative) Urine Ketones (Negative) Urine Blood (Negative) Urine Nitrite (Negative) Urine Bilirubin (Negative) Urine Urobilinogen (<2.0) mg/dL Ur Leukocyte Esterase (Negative) Urine Opiates Screen (NotDetected) Ur Oxycodone Screen (NotDetected) Urine Methadone Screen (NotDetected) Ur Propoxyphene Screen (NotDetected) Ur Barbiturates Screen (NotDetected) U Tricyclic Antidepress (NotDetected) Ur Phencyclidine Scrn (NotDetected) Ur Amphetamines Screen (NotDetected) U Methamphetamines Scrn (NotDetected) U Benzodiazepines Scrn (NotDetected) Urine Cocaine Screen (NotDetected) U Marijuana (THC) Screen (NotDetected) Serum Alcohol mg/dL - Radiology Data Radiology results: report reviewed (Chest x-ray reveals no acute process), image reviewed (CT scan of the brain shows no acute hemorrhage, mass effect, or shift. Computed tomography scan cervical spine shows no fracture or dislocation. There is probable ascending aortic aneurysm.) Disposition Clinical Impression: Altered mental status Disposition: ADMITTED IP TO THIS HOSP Is patient prescribed a controlled substance at d/c from ED?: No Referrals: Aries Ma MD [Primary Care Provider] - 1-2 days Decision Time: 17:56
[2020-12-05 17:14] LABS: Appearance,Urine Clear (Clear); Bilirubin,Urine Negative (Negative); Blood,Urine Negative (Negative); Color,Urine Yellow; Glucose,Urine (UA) Negative (Negative); Ketones,Urine Negative (Negative); Leukocyte Esterase,Urine Negative (Negative); Nitrite,Urine Negative (Negative); PH, Urine 5.5 (5.0-8.0); Protein,Urine Negative (Negative); Specific Gravity,Urine 1.014 (1.001-1.035); Urobilinogen,Urine <2.0 mg/dL (<2.0)
--- NOTE | 2020-12-05 17:17 | XR ---
EXAMINATION TYPE: XR chest 2V DATE OF EXAM: 12/05/2020 COMPARISON: 10/15/2020. HISTORY: Altered mental status. TECHNIQUE: Frontal and lateral views of the chest are obtained. FINDINGS: There is no focal air space opacity, pleural effusion, or pneumothorax seen. The cardiac silhouette size is within normal limits. The osseous structures are intact. Loop recorder noted. IMPRESSION: No acute cardiopulmonary process.
[2020-12-05] MEDS: THIAMINE 100 MG/ML 2 ML VIAL IVP SCH (17:19)
[2020-12-05 17:25] LABS: INR 0.9 (<1.2); Partial Thromboplastin Time 24.2 sec (22.0-30.0); Prothrombin Time 10.1 sec (9.0-12.0)
[2020-12-05 17:27] LABS: ALT 18 U/L (4-49); AST 31 U/L (17-59); African American GFR (CKD) >90 (>60 ml/min/1.73 sqM); Albumin 4.5 g/dL (3.5-5.0); Alcohol <10 mg/dL; Alkaline Phosphatase 88 U/L (38-126); Anion Gap 6 mmol/L; Blood Urea Nitrogen 17 mg/dL (9-20); Calcium 9.3 mg/dL (8.4-10.2); Carbon Dioxide 29 mmol/L (22-30); Chloride 110 mmol/L (98-107); Glucose 102 mg/dL (74-99); Non-African American GFR(CKD) >90 (>60 ml/min/1.73 sqM); Potassium 4.2 mmol/L (3.5-5.1); Sodium 145 mmol/L (137-145); Total Bilirubin 0.4 mg/dL (0.2-1.3); Total Protein 7.4 g/dL (6.3-8.2)
[2020-12-05 17:28] LABS: Amphetamine Screen,Urine Not Detected (NotDetected); Barbiturate Screen,Urine Not Detected (NotDetected); Benzodiazepines Screen,Urine Not Detected (NotDetected); Cocaine Screen,Urine Not Detected (NotDetected); Methadone Screen, Urine Not Detected (NotDetected); Opiate Screen,Urine Not Detected (NotDetected); Oxycodone Screen, Urine Not Detected (NotDetected); Phencyclidine Screen,Urine Not Detected (NotDetected); Tricyclic Antidepressant,Urine Not Detected (NotDetected); Urn Cannabinoid Scrn Not Detected (NotDetected)
--- NOTE | 2020-12-05 17:35 | CT ---
EXAMINATION TYPE: CT brain venkatine wo con DATE OF EXAM: 12/05/2020 COMPARISON: 10/15/2020. HISTORY: AMS, FALL. PT MOVED DURING INITIAL BRAIN SCAN, HAD TO REPEAT CT DLP: 2489.0 mGycm Automated exposure control for dose reduction was used. TECHNIQUE: CT scan of the head and cervical spine are performed without contrast. FINDINGS: There is no acute intracranial hemorrhage, mass effect, or midline shift identified. The ventricles and sulci are within normal limits in size. The globes are intact and the visualized sin uses are clear. Cervical spine is visualized in its entirety from C1 through upper thoracic levels and demonstrates s atisfactory alignment without evidence of acute fracture or dislocation. Prevertebral soft tissue ap pears within normal limits. The C1-C2 articulation is unremarkable. There is probable ascending aor tic aneurysm. IMPRESSION: 1. There is no acute fracture or dislocation evident in the cervical spine. 2. No acute intracranial hemorrhage, mass effect, or midline shift is seen. 3. Probable ascending aortic aneurysm.
[2020-12-05 17:48] LABS: Basophils % (A) 1 %; Eosinophils # (A) 0.2 k/uL (0-0.7); Eosinophils % (A) 3 %; HCT 39.7 % (39.0-53.0); HGB 13.6 gm/dL (13.0-17.5); Lymphocytes % (A) 37 %; MCH 32.5 pg (25.0-35.0); MCHC 34.3 g/dL (31.0-37.0); MCV 94.8 fL (80.0-100.0); Monocytes # (A) 0.4 k/uL (0-1.0); Monocytes % (A) 6 %; Neutrophils # (A) 2.8 k/uL (1.3-7.7); Neutrophils % (A) 51 %; Platelet Count 164 k/uL (150-450); RBC 4.19 m/uL (4.30-5.90); RDW 14.1 % (11.5-15.5); WBC 5.5 k/uL (3.8-10.6)
[2020-12-05] MEDS ORDERED: NALOXONE 0.4 MG/ML 1 ML VIAL IV PRN (17:56)
[2020-12-05] MEDS: SODIUM CHLORIDE 0.9% 1,000 ML IV SCH (19:15)
[2020-12-05] MEDS ORDERED: LORazepam 2 MG/ML INJ IV STA (19:47)
[2020-12-05 19:53] LABS: Glucose,Whole Blood 126 mg/dL (75-99)
[2020-12-05] MEDS ORDERED: LORazepam 2 MG/ML INJ IV PRN (20:23)
[2020-12-06] MEDS: LACOSAMIDE 150 MG TABLET PO SCH ×3 (03:21→20:57)
[2020-12-06] MEDS: OLANZapine 10 MG TAB PO SCH ×2 (03:22→08:36)
[2020-12-06 07:26] LABS: Basophils % (A) 1 %; Eosinophils # (A) 0.2 k/uL (0-0.7); Eosinophils % (A) 3 %; HCT 38.7 % (39.0-53.0); HGB 13.4 gm/dL (13.0-17.5); Lymphocytes # (A) 1.5 k/uL (1.0-4.8); Lymphocytes % (A) 25 %; MCH 33.1 pg (25.0-35.0); MCHC 34.6 g/dL (31.0-37.0); MCV 95.6 fL (80.0-100.0); Mean Platelet Volume 6.9; Monocytes # (A) 0.4 k/uL (0-1.0); Monocytes % (A) 6 %; Neutrophils # (A) 3.8 k/uL (1.3-7.7); Neutrophils % (A) 64 %; Platelet Count 170 k/uL (150-450); RBC 4.04 m/uL (4.30-5.90); RDW 14.2 % (11.5-15.5)
[2020-12-06] MEDS: THIAMINE 100 MG/ML 2 ML VIAL IVP SCH (08:34)
[2020-12-06] MEDS: METOPROLOL SUCCINATE (ER) 25 MG TAB.ER.24H PO SCH ×2 (08:36→20:56)
[2020-12-06] MEDS: PANTOPRAZOLE 40 MG TABLET PO SCH (08:36)
[2020-12-06] MEDS: LEVOTHYROXINE 100 MCG TAB PO SCH (08:36)
[2020-12-06] MEDS: CHOLECALCIFEROL 25 MCG (1000 IU) TABLET PO SCH (08:37)
[2020-12-06] MEDS: FLUoxetine HCL 20 MG CAP PO SCH (08:37)
[2020-12-06] MEDS: ENOXAPARIN 40 MG/0.4 ML SYRINGE SQ SCH (08:37)
[2020-12-06] MEDS: THIAMINE 100 MG TAB PO SCH ×2 (08:37→18:05)
[2020-12-06] MEDS: allopurinoL 100 MG TAB PO SCH (08:37)
[2020-12-06] MEDS ORDERED: ATORVASTATIN 10 MG TAB PO SCH (09:00)
[2020-12-06 10:18] LABS: African American GFR (CKD) 127.5 (60.0-200.0); Albumin/Globulin Ratio 1.74 (1.60-3.17); Anion Gap 9.2 mmol/L (4.00-12.00); BUN/Creat Ratio 17.14 Ratio (12.00-20.00); Calcium 8.7 mg/dL (8.7-10.3); Carbon Dioxide 25.8 mmol/L (21.6-31.8); Globulin 2.3 g/dL (1.6-3.3); Potassium 3.7 mmol/L (3.5-5.5); Total Bilirubin 0.6 mg/dL (0.2-1.2); Total Protein 6.3 g/dL (6.2-8.2)
--- NOTE | 2020-12-06 10:45 | P.HPIM ---
History of Present Illness H&P Date: 12/05/20 Marco Antonio South, is a 50-year-old male well-known to my practice who presented to [facility] emergency room with a chief complaint of mental status changes, family states that patient had a fall with facial trauma today with subsequent bloody nose, however his symptoms of confusion and mental status changes started the prior to his fall, and worsened after the fall. Patient has a previous history of seizure disorder maintained on Vimpat, he also has a known history of psychosis, and history of alcohol use disorder. Patient was evaluated in the emergency room vital examination on presentation revealed a temperature of 98.2 pulse 72 respirations 16 blood pressure 148/100 pulse ox 97% on room air. Laboratory data revealed a white blood count of 5.5 hemoglobin 13.6 platelet count 164 sodium 145 potassium 4.2 chloride 110 CO2 29 BUN 17 creatinine 0.64 troponin level was normal urine analysis normal urine toxicology screen was negative serum alcohol level was negative coronavirus PCR was negative. Computed tomography scan of the head and cervical spine was done in the emergency room without contrast and did not reveal any acute abnormality there was a probable ascending aortic aneurysm which is an incidental finding. EKG done in the emergency room revealed normal sinus rhythm with rightward axis otherwise no acute abnormality. Chest x-ray done in the emergency room revealed no acute cardiopulmonary process . Patient was started on IV Ativan in the emergency room and was admitted to medical floor neurology consultation and psychiatry consultation were requested. Past Medical History Past Medical History: Chest Pain / Angina, CVA/TIA, Hyperlipidemia, Hypertension, Seizure Disorder, Thyroid Disorder Additional Past Medical History / Comment(s): States TIA from xrays- no deficits, v-tach, 2 seizures in 03/2016 - then 1 at home , LAST SEIZURE IN 2018 , gout. History of Any Multi-Drug Resistant Organisms: None Reported Past Surgical History: Cardiac Ablation, Heart Catheterization Additional Past Surgical History / Comment(s): Tilt table test, stress test 2017, heart cath 2017. Past Anesthesia/Blood Transfusion Reactions: No Reported Reaction Additional Past Anesthesia/Blood Transfusion Reaction / Comment(s): Never had general anesthesia/transfusions. Past Psychological History: Anxiety, Depression, Panic Disorder Smoking Status: Never smoker Past Alcohol Use History: Abuse Past Drug Use History: Prescription Drug Abuse - Past Family History Mother History Unknown: Yes Family Medical History: No Reported History Additional Family Medical History / Comment(s): MS Father History Unknown: Yes Additional Family Medical History / Comment(s): BREATHING PROBLEMS Medications and Allergies Home Medications Medication Instructions Recorded Confirmed Type allopurinoL [Zyloprim] 100 mg PO DAILY #30 tab 06/21/18 12/05/20 Rx Metoprolol Succinate [Toprol XL] 25 mg PO BID 12/24/19 12/05/20 History lisinopriL [Zestril] 2.5 mg PO DAILY 12/24/19 12/05/20 History Baclofen 10 mg PO BID PRN 08/30/20 12/05/20 History Rosuvastatin Calcium [Crestor] 5 mg PO DAILY 10/15/20 12/05/20 History Thiamine [Vitamin B-1] 100 mg PO BID-W/MEALS 30 Days #30 10/20/20 12/05/20 Rx tab OLANZapine [ZyPREXA] 10 mg PO TID 30 Days tab 10/26/20 12/05/20 Rx Cholecalciferol [Vitamin D3 (25 50 mcg PO DAILY 12/05/20 12/05/20 History Mcg = 1000 Iu)] FLUoxetine HCL [PROzac] 40 mg PO DAILY 12/05/20 12/05/20 History Lacosamide [Vimpat] 150 mg PO BID 12/05/20 12/05/20 History Levothyroxine Sodium [Synthroid] 100 mcg PO DAILY@0630 12/05/20 12/05/20 History Allergies Allergy/AdvReac Type Severity Reaction Status Date / Time amoxicillin Allergy Rash/Hives Verified 12/05/20 18:49 Sulfa (Sulfonamide Allergy Rash/Hives Verified 12/05/20 18:49 Antibiotics) Physical Exam Vitals: Vital Signs Temp Pulse Resp BP Pulse Ox 12/05/20 20:36 67 16 145/88 97 12/05/20 19:16 70 16 157/90 97 12/05/20 16:21 98.2 F 72 16 148/100 97 Intake and Output 12/05/20 12/05/20 12/05/20 06:59 14:59 22:59 Other: Weight 54.431 kg In general patient is alert, confused, in no apparent distress HEENT head normocephalic and atraumatic Neck is supple no JVD no goiter no lymphadenopathy no carotid bruit Chest examination is clear to auscultation no crackles no wheezing Cardiac exam reveals regular heart sounds S1 and S2 no gallops no murmurs Abdomen is soft nontender no organomegaly with normal bowel sounds Extremity exam reveals no edema no cyanosis or clubbing Neurological examination reveals no gross focal deficits Results CBC & Chem 7: 12/05/20 16:54 12/05/20 16:54 Labs: Abnormal Lab Results - Last 24 Hours (Table) 12/05/20 12/05/20 12/05/20 Range/Units 16:54 16:54 19:49 RBC 4.19 L (4.30-5.90) m/uL Chloride 110 H (98-107) mmol/L Creatinine 0.64 L (0.66-1.25) mg/dL Glucose 102 H (74-99) mg/dL POC Glucose (mg/dL) 126 H (75-99) mg/dL Assessment and Plan Plan: Episode of confusion and mental status changes, cause at this time is not clear, patient is admitted to medical floor for further evaluation and treatment Recent fall with facial trauma, however per family symptoms started prior to fall. Underlying history of seizure disorder maintained on Vimpat, no new witnessed seizures at this time. Underlying history of psychosis maintained on Zyprexa, with history of recent admission to the psychiatry unit Underlying history of alcohol use disorder however patient is denying any recent alcohol use, alcohol is negative in emergency room. Underlying history of gout At this time patient is admitted to medical floor Neurology and psychiatry consultation requested Vimpat level ordered in the emergency room, and may take several days until we have test result Home medications reviewed and reordered For GI prophylaxis protonix for DVT prophylaxis subcu Lovenox
--- NOTE | 2020-12-06 11:27 | P.CNNES ---
History of Present Illness Consult date: 12/06/20 Requesting physician: Rashawn [place] Reason for Consult: altered mental status History of Present Illness: This is a 50-year-old gentleman with medical history of epilepsy, stroke (according to the patient about 6 years ago), fall (possibly medication use), alcohol use, hypothyroidism, cardiomyopathy s/p ablation who resented the emergency department on 12/05/2020 for change in mental status. Some of the history is obtained from the patient's mother (Lily) via phone, who stated that around 2 PM on the 12/05/2020 date heard a loud noise. And they noticed some bleeding out of the the patient's nose and he was confused at. Didn't notice any jerking any of his extremity, foaming around the mouth. She stated that the patient has been compliant taking his Vimpat except that he missed his morning medication of Vimpat on the 12/05/2020. Patient follows up with Dr. Bravo's team for his neurological problems and is being seen by a physician medical assistant per diem and last seen a few week ago per the mother but does not know what transpired during the visit. In the ED the patient had a witnessed seizure-like activity witness by nursing staff. It was estimated to last 1.5 minutes then patient was postictal. Patient has not had any further seizure-like activity. As stated above patient is on Vimpat 150 mg 1 tablet twice a day, Crestor 5 mg daily, baclofen 10 mg 1 tell twice a day as needed, vitamin D3, Prozac, Synthro id, Zyprexa Temodar gram one tablet 3 times a day, thiamine 100 mg 1 tablet twice a day, allopurinol. Of note, the patient is known to our neurology service and he was seen by me on 10/16/2020 for altered mentation with history of seizure and was last seen by Dr. Chakraborty on 10/24/2020. It was felt that patient has acute psychosis with auditory hallucination. Possible alcohol withdrawal. And it was a felt the patient appeared very paranoid and anxious. We felt that the patient's the few episodes of loss of consciousness or possibly due to seizures and it seems provoked because he is he missed his last 2 days of Vimpat he had orthostatics were negative. On the last visit we increased the Vimpat from 100 mg 1 tablet twice a day to 150mg bid. Please refer to the previous note for further details Regarding his old stroke and he stated that he was told he had an old stroke about 6 years ago and he stated that he had some workup done but not sure and he is to be on aspirin but that was stopped by his neurologist (Dr. Juanjose Victoria). Some other workup in the hospital consisted of: Initial vital signs: Blood pressure 148/100, heart rate of 72, Risperdal of 16, temperature of 98.2 Fahrenheit oral and pulse ox of 97% at room air. CT of the head is reported as there is no acute intracranial hemorrhage, mass effect or midline shift is seen. Probable ascending aortic aneurysm. I perso kalee reviewed the CT of the head and I do not see any acute or subacute ischemia. I do not see any hemorrhage. I did do see an old anterior limb hypodensity over the right basal ganglia. And upon reviewing the images it goes back as far as 2015. CT of the cervical is reported as there is no acute fracture or dislocation evident in the cervical spine. Initial white blood cell is 5.5 which is considered normal. MCV is 94.8 which is also considered normal. Initial POC glucose is 97 which is considered normal. Sodium is 145, creatinine is a 0.64, AST of 31 and ALT of 18, ammonia is 12 and that's all within normal limits. Review of Systems Review of system: The 12 point system was reviewed and apparent positive and negative per HPI. Past Medical History Past Medical History: Chest Pain / Angina, CVA/TIA, Hyperlipidemia, Hypertension, Seizure Disorder, Supraventricular Tachycardia (SVT), Syncope, Thy roid Disorder Additional Past Medical History / Comment(s): Pt states he had a small stroke in the past but no deficits, SVT with ablation, atach, acute encephalopathies/alter ed mental status associated with alcohol consumption, ETOH, hypothyroid, diverticular disease, chronic low back pain/spasms, last seizure possibly . History of Any Multi-Drug Resistant Organisms: None Reported Past Surgical History: Cardiac Ablation, Heart Catheterization Additional Past Surgical History / Comment(s): Cardiac ablation for SVT, tilt table test, stress test 2017, heart cath 2017, colonoscopy.. Past Anesthesia/Blood Transfusion Reactions: No Reported Reaction Additional Past Anesthesia/Blood Transfusion Reaction / Comment(s): Pt has never had transfusion. Smoking Status: Never smoker - Past Family History Mother History Unknown: Yes Family Medical History: Musculoskeletal Disorder, Neurologic Disorder Additional Family Medical History / Comment(s): MS. Mother is living. Father History Unknown: Yes Additional Family Medical History / Comment(s): BREATHING PROBLEMS-never goes to the doctor. Father is living. Medications and Allergies Home Medications Medication Instructions Recorded Confirmed Type allopurinoL [Zyloprim] 100 mg PO DAILY #30 tab 06/21/18 12/05/20 Rx Metoprolol Succinate [Toprol XL] 25 mg PO BID 12/24/19 12/05/20 History lisinopriL [Zestril] 2.5 mg PO DAILY 12/24/19 12/05/20 History Baclofen 10 mg PO BID PRN 08/30/20 12/05/20 History Rosuvastatin Calcium [Crestor] 5 mg PO DAILY 10/15/20 12/05/20 History Thiamine [Vitamin B-1] 100 mg PO BID-W/MEALS 30 Days #30 10/20/20 12/05/20 Rx tab OLANZapine [ZyPREXA] 10 mg PO TID 30 Days tab 10/26/20 12/05/20 Rx Cholecalciferol [Vitamin D3 (25 50 mcg PO DAILY 12/05/20 12/05/20 History Mcg = 1000 Iu)] FLUoxetine HCL [PROzac] 40 mg PO DAILY 12/05/20 12/05/20 History Lacosamide [Vimpat] 150 mg PO BID 12/05/20 12/05/20 History Levothyroxine Sodium [Synthroid] 100 mcg PO DAILY@0630 12/05/20 12/05/20 History Allergies Allergy/AdvReac Type Severity Reaction Status Date / Time amoxicillin Allergy Rash/Hives Verified 12/05/20 18:49 Sulfa (Sulfonamide Allergy Rash/Hives Verified 12/05/20 18:49 Antibiotics) Physical Examination - Vital Signs Vital Signs: Vital Signs Temp Pulse Pulse Resp BP BP Pulse Ox 12/06/20 04:33 97.8 F 81 16 151/84 100 12/05/20 21:05 97.6 F 63 17 111/64 99 12/05/20 20:36 67 16 145/88 97 12/05/20 19:16 70 16 157/90 97 12/05/20 16:21 98.2 F 72 16 148/100 97 Intake and Output 12/05/20 12/06/20 12/06/20 22:59 06:59 14:59 Output Total 100 Balance -100 Output: Urine 100 Other: Weight 54.431 kg 54.431 kg GENERAL: The patient is lying in bed and is not in acute distress. But seems very anxious. CHEST: The heart rate is regular rate rhythm. No murmurs to auscultation. No carotid bruit bilaterally. LUNG: Clear to auscultation bilaterally no wheezing noted throughout. Not labored breathing. ABDOMEN/GI: Bowel sounds present in all 4 quadrants. No tenderness to palpation throughout. PSYCH: Is very anxious and seems somewhat restless. NEUROLOGICAL: Higher mental function: The patient is awake, alert, oriented to self. He sta mandeep he was in the hospital but thought it was [facility]. He correctly stated the year but the month he thought October. Patient is able to name objects (pen, watch and glasses). He correctly stated the state we are in is [place]. Patient is following commands. No aphasia and no neglect. Cranial nerves: The pupils are round, equal and reactive to light and accommodation. Visual french are full to confrontation throughout. Extraocular movement is intact no nystagmus is noted. Facial sensation is normal to touch throughout. The facial strength is normal throughout. Hearing is normal b ilaterally to hand rub. Tongue is midline and moved [id number] without any difficulty. No dysarthria is noted. Shoulder shrug is normal bilaterally. Motor: Gait is deferred. The strength is 5 over 5 throughout. Normal tone and bulk. Cerebellum: Normal finger to nose bilaterally. Sensation: Sensation is normal to touch throughout. Reflexes (right/left): 3+ bilateral triceps. Otherwise 2+ throughout. Plantars are downgoing bilaterally. Results Urinalysis is negative for ureter tract infection Toxicology screen was not detected. Serum alcohol was less than 10. Jordan virus patient was not detected. - Laboratory Findings CBC and BMP: 12/06/20 06:09 12/06/20 06:09 Abnormal Lab Findings: Abnormal Labs 12/05/20 12/05/20 12/05/20 16:54 16:54 19:49 RBC 4.19 L Hct Chloride 110 H Creatinine 0.64 L Glucose 102 H POC Glucose (mg/dL) 126 H 12/06/20 06:09 RBC 4.04 L Hct 38.7 L Chloride Creatinine Glucose POC Glucose (mg/dL) Assessment and Plan Assessment: Breakthrough seizure (had episode of scream then was confused at home then had witnessed seizure-like activity in the ED on 12/05/20 lasting 1 1/2 minutes). History of epilepsy Old Right hypodensity over the anterior limb of basal ganglia (seems due to old stroke) was seen as far as 2016 images in our facility. Hypothyroidism History of cardiomyopathy status post ablation History of alcohol use Plan: * CT of the head is reported as there is no acute intracranial hemorrhage, mass effect or midline shift is seen. Probable ascending aortic aneurysm. I personally reviewed the CT of the head and I do not see any acute or subacute ischemia. I do not see any hemorrhage. I did do see an old anterior limb hypodensity over the right basal ganglia. And upon reviewing the images it goes back as far as 2016. * CT of the cervical is reported as there is no acute fracture or dislocation evident in the cervical spine. * In the ED the patient was given 1 mg of Ativan once. * I increased the Vimpat from 150 mg 200 mg daily. I also started the patient on Depakote 250mg 1 tab bid (no Keppra since he has psychiatric problems). * An EEG is not warranted since the patient is known to have history of seizures * Regarding the old strokes I started the patient on aspirin 81 mg (according to him he was stopped by his neurology team as outpatient for secondary stroke prophylaxis.. Currently the patient is on Lipitor 10 mg I'll go up on the dose to 20 mg and not higher because he has history of alcohol use. * Every 4 hours neuro checks. * ED team ordered the Vimpat level and is pending * Placed the patient on seizure precaution and seizure pads. * Psychiatry is consulted * The patient was notified that per the [facility] law that he cannot drive for 6 month until seizure-free. He is of low to avoid heights, heavy machinery and swimming unassisted. * Upon discharge the patient needs to follow-up with his neurologist (he follows-up with Dr. Sow's team and sees his Physician Glove Tagger) within 1- 2 weeks. * Recommend prolonged EEG as an outpatient or even an epilepsy monitoring unit for seizure localization and consideration of surgery if he is a candidate and consider MRI Brain (I would assume he had MRI at his outpatient neurologist). If the patient has no further seizures by tomorrow then he is clear from neurological stand point. The plan is discussed with the patient's nurse and his mother (Lily) via phone. Thank you for the consultation. Maxwell Hooks MD Neuro-Hospitalist Time with Patient: Greater than 30
[2020-12-06] MEDS: DIVALPROEX 250 MG TABLET.DR PO SCH ×2 (11:33→20:56)
[2020-12-06] MEDS ORDERED: BENZTROPINE 2 MG/2 ML AMP IM ONE (15:08)
[2020-12-06] MEDS: OLANZapine 5 MG TAB PO SCH ×2 (16:08→20:58)
[2020-12-06] MEDS: SODIUM CHLORIDE 0.9% 1,000 ML IV SCH (18:05)
[2020-12-06 20:12] VITALS: RESP 16
--- NOTE | 2020-12-06 20:21 | P.PN ---
Subjective Progress Note Date: 12/06/20 Marco Antonio South, is a 50-year-old male well-known to my practice who presented to [facility] emergency room with a chief complaint of mental status changes, family states that patient had a fall with facial trauma today with subsequent bloody nose, however his symptoms of confusion and mental status changes started the prior to his fall, and worsened after the fall. Patient has a previous history of seizure disorder maintained on Vimpat, he also has a known history of psychosis, and history of alcohol use disorder. Patient was evaluated in the emergency room vital examination on presentation revealed a temperature of 98.2 pulse 72 respirations 16 blood pressure 148/100 pulse ox 97% on room air. Laboratory data revealed a white blood count of 5.5 hemoglobin 13.6 platelet count 164 sodium 145 potassium 4.2 chloride 110 CO2 29 BUN 17 creatinine 0.64 troponin level was normal urine analysis normal urine toxicology screen was negative serum alcohol level was negative coronavirus PCR was negative. Computed tomography scan of the head and cervical spine was done in the emergency room without contrast and did not reveal any acute abnormality there was a probable ascending aortic aneurysm which is an incidental finding. EKG done in the emergency room revealed normal sinus rhythm with rightward axis otherwise no acute abnormality. Chest x-ray done in the emergency room r evealed no acute cardiopulmonary process . Patient was started on IV Ativan in the emergency room and was admitted to medical floor neurology consultation and psychiatry consultation were requested. On 12/06/2020 patient was seen and examined on the medical floor he is alert slightly confused in no apparent distress no new seizure activity reported since admission, dose of Vimpat was increased to 200 mg twice daily per neurology recommendation, otherwise patient denies any complaints there is no fever or chills no headache or dizziness no chest pain no shortness of breath no cough no nausea or vomiting no abdominal pain no diarrhea and no urinary symptoms Objective - Vital Signs Vital signs: Vital Signs Temp 97.8 F 12/06/20 04:33 Pulse 81 12/06/20 04:33 Resp 16 12/06/20 04:33 BP 151/84 12/06/20 04:33 Pulse Ox 100 12/06/20 04:33 Intake & Output 12/05/20 12/06/20 12/06/20 18:59 06:59 18:59 Output Total 100 Balance -100 Weight 54.431 kg 54.431 kg Output: Urine 100 - Exam In general patient is alert, confused, in no apparent distress HEENT head normocephalic and atraumatic Neck is supple no JVD no goiter no lymphadenopathy no carotid bruit Chest examination is clear to auscultation no crackles no wheezing Cardiac exam reveals regular heart sounds S1 and S2 no gallops no murmurs Abdomen is soft nontender no organomegaly with normal bowel sounds Extremity exam reveals no edema no cyanosis or clubbing Neurological examination reveals no gross focal deficits - Labs CBC & Chem 7: 12/06/20 06:09 12/06/20 06:09 Labs: Abnormal Lab Results - Last 24 Hours (Table) 12/05/20 12/05/20 12/05/20 Range/Units 16:54 16:54 19:49 RBC 4.19 L (4.30-5.90) m/uL Hct (39.0-53.0) % Chloride 110 H (98-107) mmol/L Creatinine 0.64 L (0.66-1.25) mg/dL Glucose 102 H (74-99) mg/dL POC Glucose (mg/dL) 126 H (75-99) mg/dL 12/06/20 Range/Units 06:09 RBC 4.04 L (4.30-5.90) m/uL Hct 38.7 L (39.0-53.0) % Chloride (98-107) mmol/L Creatinine (0.66-1.25) mg/dL Glucose (74-99) mg/dL POC Glucose (mg/dL) (75-99) mg/dL Assessment and Plan Plan: Episode of confusion and mental status changes, cause at this time is not clear, patient is admitted to medical floor for further evaluation and treatment Recent fall with facial trauma, however per family symptoms started prior to fall. Underlying history of seizure disorder maintained on Vimpat, no new witnessed seizures at this time. Underlying history of psychosis maintained on Zyprexa, with history of recent admission to the psychiatry unit Underlying history of alcohol use disorder however patient is denying any recent alcohol use, alcohol is negative in emergency room. Underlying history of gout At this time patient is admitted to medical floor Neurology and psychiatry consultation requested Vimpat level ordered in the emergency room, and may take several days until we have test result Home medications reviewed and reordered For GI prophylaxis protonix for DVT prophylaxis subcu Lovenox
[2020-12-06] MEDS: LACOSAMIDE 50 MG TABLET PO SCH (20:56)
--- NOTE | 2020-12-06 22:48 | CONS ---
CONSULTATION DATE OF SERVICE: 12/06/2020 PURPOSE FOR CONSULTATION: Evaluate for altered mental status. HISTORY OF PRESENTING ILLNESS: The patient is a 50-year-old male. He presented to the ED with altered mental status. The family indicated that he had a fall and suffered facial trauma. He was having about 3 days of confusion and mental status change prior to the fall. He has a history of seizure disorder, psychosis and past alcohol use disorder. It is noted the patient had a previous admission October 15 for similar circumstances. I saw the patient October 16 and had subsequent follow up. I refer the reader to my consultation notes for details. In regards to his current situation, it is my understanding that there was a suspicion that the patient may have had a seizure at home as part of the fall. Nursing indicated that he had also had a 1-1/2 minutes seizure in the ED. After that, he seemed to be in a confused state. Nursing noted that today he was fairly disorganized in his thoughts much of the day where he was disoriented to specifics. He has been cooperative with care and has not had any significant behavior issues. Nursing has noted that throughout the day today, he is disoriented. He may say that he is at [facility]. He is not able to give the day, date or year and makes odd comments when I ask basic orientation questions. On the other hand, he is able to make his needs and concerns being known. Nursing noted that he often is on the call light and can easily get quite anxious and restless, even with some minor concerns. Sometimes it is hard to know exactly what may be bothering him. During his previous admission October 15, he had some episodes of agitation. He was initially started on Zyprexa for psychosis. Due to significant problems with agitation and psychotic thinking, the dose was ultimately increased to 10 mg 3 times a day. In addition, he was on Prozac 40 mg a day as his psychotropic medications. In addition, he is on baclofen and Vimpat as other psychoactive medications. When I talked to the patient today, he seemed to be resting quietly. He had a calm manner. He was able to give a few details to events. He continues to reside with his parents. He did not report significant problems other than the recent fall. I had a telephone contact with the patient's mother. She indicated that since his hospitalization October 15, he has been doing fairly well at home. He has been oriented, alert and functioning appropriately. He has maintained a good mood. He has not used any abusive substances. Mother notes that he is able to get out in the community to do things like going shopping with the parents. He does not drive due to his seizure disorder. She notes that if he does go into a store and there are a lot of people, he will get anxious and then choose to leave. She notes that the only problems he has had it is in the last 3 days where he became increasingly confused, he was pacing. He was not able to follow even basic directions. Mother was not certain that there were any clear precipitating factors or changes in situation that would have brought this on. Ultimately, because of the fall, he was brought to the hospital. Nursing has noted that since he has been on the unit, he does show a quite a bit of restlessness along with anxiety. He has been cooperative with care. MENTAL STATUS EXAM: When I saw the patient, he gave good eye contact. He had a calm and quiet manner. He answered questions with brief responses. For the most part, his thoughts were clear, though he did not give much for detailed information. He communicated appropriately. He had a reasonable range of affect. His mood was even. He did not appear to be distressed. It was difficult to assess for thought disorder. He voiced no thoughts of harm. On cognitive exam, he was able to say it was December 06, though he had some difficulty coming up with the year. When I asked him the day of the week, he first said it was Sunday and then Sunday. When I asked him where he was at, he said [facility]. Then when I had a note and that he was able to say [facility] in [place]. I asked him to give the days of the week in reverse order starting with Sunday. His response was Sunday, Sunday, Sunday, Sunday, Sunday, . When I asked him to try to repeat as he had missed some days, he then started having trouble with the basic directions. He would say something like Sunday, , Sunday. It is noteworthy that during his previous admission I asked him the same task and he was not able to perform that test at all any of the times I saw him. ASSESSMENT: This 50-year-old male has altered mental status. It is unclear if the primary issues may relate to his seizure disorder. He does have a restlessness and which could be some impact from his Zyprexa, possibly inducing some EPS. Zyprexa tends to have a low incidence of this, but not 0. As such, I will give him a trial dose of Cogentin 1 mg IM. Nursing will give an update in an hour or so to see if he does seem to show any progress. I will reduce his Zyprexa from 10 mg 3 times a day down to 5 mg 3 times a day. From the history obtained so far, it does not sound that he has had any clear indications of psychosis. He has had 3 days of altered mental status are not likely to relate directly to psychosis either. If he tolerates the reduction in Zyprexa, we could look at a further reduction. I will continue to follow. MAMIE / SILVINAN: [id number] /
[2020-12-07] MEDS: LEVOTHYROXINE 100 MCG TAB PO SCH (05:34)
[2020-12-07] MEDS: ENOXAPARIN 40 MG/0.4 ML SYRINGE SQ SCH (07:57)
[2020-12-07] MEDS: THIAMINE 100 MG TAB PO SCH ×2 (07:58→17:33)
[2020-12-07] MEDS: LACOSAMIDE 150 MG TABLET PO SCH ×2 (07:58→20:57)
[2020-12-07] MEDS: ATORVASTATIN 20 MG TAB PO SCH (07:58)
[2020-12-07] MEDS: CHOLECALCIFEROL 25 MCG (1000 IU) TABLET PO SCH (07:58)
[2020-12-07] MEDS: OLANZapine 5 MG TAB PO SCH ×2 (07:58→20:57)
[2020-12-07] MEDS: PANTOPRAZOLE 40 MG TABLET PO SCH (07:59)
[2020-12-07] MEDS: DIVALPROEX 250 MG TABLET.DR PO SCH ×2 (07:59→20:56)
[2020-12-07] MEDS: LACOSAMIDE 50 MG TABLET PO SCH ×2 (07:59→20:57)
[2020-12-07] MEDS: METOPROLOL SUCCINATE (ER) 25 MG TAB.ER.24H PO SCH ×2 (07:59→20:57)
[2020-12-07] MEDS: FLUoxetine HCL 20 MG CAP PO SCH (07:59)
[2020-12-07] MEDS: allopurinoL 100 MG TAB PO SCH (07:59)
[2020-12-07] MEDS: THIAMINE 100 MG/ML 2 ML VIAL IVP SCH (08:00)
[2020-12-07] MEDS: BENZTROPINE MESYLATE 0.5 MG TAB PO SCH ×2 (11:56→20:57)
[2020-12-07 13:38] VITALS: BMI 19.3
--- NOTE | 2020-12-07 15:47 | P.PN ---
Subjective Progress Note Date: 12/07/20 The patient is seen at bedside and he feels that he is doing drastically better today compared to his initial presentation. Per the patient nurse no further seizure-like activity. Patient denies of any focal weakness, numbness, visual disturbance or any other neurological deficits. Objective - Vital Signs Vital signs: Vital Signs Temp 97.4 F L 12/07/20 11:22 Pulse 69 12/07/20 11:22 Resp 16 12/07/20 11:22 BP 111/74 12/07/20 11:22 Pulse Ox 99 12/07/20 11:22 Intake & Output 12/06/20 12/07/20 12/07/20 18:59 06:59 18:59 Intake Total 720 720 Output Total 100 1025 500 Balance 620 -305 -500 Weight 54.431 kg 54.431 kg Intake: Intake, IV Titration 240 Amount Sodium Chloride 0.9% 1, 240 000 ml @ 20 mls/hr IV . Q24H [facility] Rx#:[id number] Oral 480 720 Output: Urine 100 1025 500 Other: Voiding Method Urinal Urinal # Voids 6 - Exam GENERAL: The patient is lying in bed and is not in acute distress. But seems very anxious. PSYCH: Has a flat affect. NEUROLOGICAL: Higher mental function: The patient is awake, alert, oriented to self and place. He stated the month correctly but stated the year is 1920 but second try said it is 2020. Patient is able to name objects (pen, watch and glasses). Patient is following commands. No aphasia and no neglect. Cranial nerves: The pupils are round, equal and reactive to light and accommodation. Visual french are full to confrontation throughout. Extraocular movement is intact no nystagmus is noted. Facial sensation is normal to touch throughout. The facial strength is normal throughout. Hearing is normal bilaterally to hand rub. Tongue is midline and moved [id number] without any difficulty. No dysarthria is noted. Shoulder shrug is normal bilaterally. Motor: Gait is normal with normal arm swings. The strength is 5 over 5 through out. Normal tone and bulk. Cerebellum: Normal finger to nose bilaterally. Sensation: Sensation is normal to touch throughout. Reflexes (right/left): 3+ bilateral triceps. Otherwise 2+ throughout. Plantars are downgoing bilaterally. - Labs CBC & Chem 7: 12/06/20 06:09 12/06/20 06:09 Assessment and Plan Assessment: Breakthrough seizure (had episode of scream then was confused at home then had witnessed seizure-like activity in the ED on 12/05/20 lasting 1 1/2 minutes). History of epilepsy Old Right hypodensity over the anterior limb of basal ganglia (seems due to old stroke) was seen as far as 2016 images in our facility. Hypothyroidism History of cardiomyopathy status post ablation History of alcohol use Plan: * CT of the head is reported as there is no acute intracranial hemorrhage, mass effect or midline shift is seen. Probable ascending aortic aneurysm. I personally reviewed the CT of the head and I do not see any acute or subacute ischemia. I do not see any hemorrhage. I did do see an old anterior limb hypodensity over the right basal ganglia. And upon reviewing the images it goes back as far as 2016. * CT of the cervical is reported as there is no acute fracture or dislocation evident in the cervical spine. * In the ED the patient was given 1 mg of Ativan once. * Continue Vimpat 200 mg 1 tab bid (150mg and 50 mg 1 tab bid) and Depakote 250mg 1 tab bid (no Keppra since he has psychiatric problems. Was on Vimpat 150mg 1 tab bid and was on other antiepileptic drugs prior to this current admission). * An EEG is not warranted since the patient is known to have history of seizures * Regarding the old strokes I started the patient on aspirin 81 mg (according to him he was stopped by his neurology team as outpatient for secondary stroke prophylaxis.. Continue Lipitor 20 mg daily and not higher because he has history of alcohol use. * Continue Every 4 hours neuro checks. * ED team ordered the Vimpat level and is pending * On seizure precaution and seizure pads. * Psychiatry is consulted * The patient was notified that per the [facility] law that he cannot drive for 6 month until seizure-free. He is of low to avoid heights, heavy machinery and swimming unassisted. * Upon discharge the patient needs to follow-up with his neurologist (he follows-up with Dr. Sow's team and sees his Physician Clinical Trials Systems Administrator) within 1- 2 weeks. * Recommend prolonged EEG as an outpatient or even an epilepsy monitoring unit for seizure localization and consideration of surgery if he is a candidate and consider MRI Brain (I would assume he had MRI at his outpatient neurologist). The plan is discussed with the patient's nurse. The patient is clear for discharge from a neurological stand point. Maxwell Hooks MD Neuro-Hospitalist Time with Patient: Less than 30
[2020-12-07] MEDS: SODIUM CHLORIDE 0.9% 1,000 ML IV SCH (17:35)
--- NOTE | 2020-12-07 19:28 | CONS ---
CONSULTATION DATE OF SERVICE: 12/07/2020 PURPOSE FOR CONSULTATION: Evaluate for altered mental status. INTERVAL HISTORY: Patient has been doing fairly well. It is noteworthy that yesterday when I saw him and reviewed issues with nurse, they had noted that he had a lot of restlessness and anxiety. He could be fairly fidgety, could be on the call light quite a bit. He was he was given Cogentin 1 mg IM as a test dose for possible akathisia related to his Zyprexa. Nursing noted that later in the day and in the evening he did seem to be quite a bit calmer. Evening nurse noted that he was not as restless as had been reported. He slept fairly well last night today he has been up in general. He has been doing fairly well. Nursing reported today that he has been much calmer. He has not had complaints of anxiety. He is less restless. Also noted that he is oriented and alert and much clearer in his thinking. When I talked to the patient, he did say he felt some improvement with the Cogentin, also along with that his Zyprexa dose was reduced. Nursing noted that he has been oriented x3 throughout the day. When I talked to him, he could tell me the day, date and where he was. He could tell me his circumstances. On the test that he has had difficulty with in the past, was giving the days of the week in reverse order, he is able to do that slowly but completely without any tears. He was sitting up in a chair when I came into the room. He smiled. He had a calm manner. He did not appear to be distressed. ASSESSMENT: From a psychiatric standpoint, I would continue the patient on Zyprexa 5 mg twice a day and Cogentin 0.5 mg twice a day. He has had psychotic symptoms in the past. He is not showing psychosis presently. He could very well have had some akathisia as part of issues leading to some of the symptoms he was presenting with. It is not clear that those issues or immediate psychiatric issues would have lead to the 3 days of the confusion that the patient had. I will be available to follow up with the patient on if indicated. MMODL / IJN: [id number] /
[2020-12-08] MEDS: BENZTROPINE MESYLATE 0.5 MG TAB PO SCH (08:20)
[2020-12-08] MEDS: THIAMINE 100 MG TAB PO SCH (08:20)
[2020-12-08] MEDS: ATORVASTATIN 20 MG TAB PO SCH (08:20)
[2020-12-08] MEDS: allopurinoL 100 MG TAB PO SCH (08:20)
[2020-12-08] MEDS: PANTOPRAZOLE 40 MG TABLET PO SCH (08:20)
[2020-12-08] MEDS: DIVALPROEX 250 MG TABLET.DR PO SCH (08:21)
[2020-12-08] MEDS: ENOXAPARIN 40 MG/0.4 ML SYRINGE SQ SCH (08:21)
[2020-12-08] MEDS: CHOLECALCIFEROL 25 MCG (1000 IU) TABLET PO SCH (08:21)
[2020-12-08] MEDS: METOPROLOL SUCCINATE (ER) 25 MG TAB.ER.24H PO SCH (08:22)
[2020-12-08] MEDS: LACOSAMIDE 50 MG TABLET PO SCH (08:22)
[2020-12-08] MEDS: LACOSAMIDE 150 MG TABLET PO SCH (08:22)
[2020-12-08] MEDS: OLANZapine 5 MG TAB PO SCH (08:22)
[2020-12-08] MEDS: FLUoxetine HCL 20 MG CAP PO SCH (08:22)
--- NOTE | 2020-12-08 11:34 | P.PN ---
Subjective Progress Note Date: 12/07/20 Marco Antonio South, is a 50-year-old male well-known to my practice who presented to [facility] emergency room with a chief complaint of mental status changes, family states that patient had a fall with facial trauma today with subsequent bloody nose, however his symptoms of confusion and mental status changes started the prior to his fall, and worsened after the fall. Patient has a previous history of seizure disorder maintained on Vimpat, he also has a known history of psychosis, and history of alcohol use disorder. Patient was evaluated in the emergency room vital examination on presentation revealed a temperature of 98.2 pulse 72 respirations 16 blood pressure 148/100 pulse ox 97% on room air. Laboratory data revealed a white blood count of 5.5 hemoglobin 13.6 platelet count 164 sodium 145 potassium 4.2 chloride 110 CO2 29 BUN 17 creatinine 0.64 troponin level was normal urine analysis normal urine toxicology screen was negative serum alcohol level was negative coronavirus PCR was negative. Computed tomography scan of the head and cervical spine was done in the emergency room without contrast and did not reveal any acute abnormality there was a probable ascending aortic aneurysm which is an incidental finding. EKG done in the emergency room revealed normal sinus rhythm with rightward axis otherwise no acute abnormality. Chest x-ray done in the emergency room r evealed no acute cardiopulmonary process . Patient was started on IV Ativan in the emergency room and was admitted to medical floor neurology consultation and psychiatry consultation were requested. On 12/06/2020 patient was seen and examined on the medical floor he is alert slightly confused in no apparent distress no new seizure activity reported since admission, dose of Vimpat was increased to 200 mg twice daily per neurology recommendation, otherwise patient denies any complaints there is no fever or chills no headache or dizziness no chest pain no shortness of breath no cough no nausea or vomiting no abdominal pain no diarrhea and no urinary symptoms On 12/07/2020 patient was seen and examined on the medical floor he is alert and oriented 3 in no apparent distress there is no fever or chills no headache or dizziness no chest pain no shortness of breath no cough no nausea or vomiting no abdominal pain no diarrhea and no urinary symptoms. At this time patient was seen and examined by neurology and was cleared for discharge, dose of Vimpat was increased to 1200 mg twice daily, patient is also being evaluated by psychiatry, medications are still being adjusted dose of Zyprexa was decreased and Cogentin was added, will discuss with psychiatry on what medications and wanted him to be discharged home. Possible discharge to home tomorrow Objective - Vital Signs Vital signs: Vital Signs Temp 97.4 F L 12/07/20 11:22 Pulse 69 12/07/20 11:22 Resp 16 12/07/20 11:22 BP 111/74 12/07/20 11:22 Pulse Ox 99 12/07/20 11:22 Intake & Output 12/06/20 12/07/20 12/07/20 18:59 06:59 18:59 Intake Total 720 720 Output Total 100 1025 500 Balance 620 -305 -500 Weight 54.431 kg Intake: Intake, IV Titration 240 Amount Sodium Chloride 0.9% 1, 240 000 ml @ 20 mls/hr IV . Q24H [facility] Rx#:[id number] Oral 480 720 Output: Urine 100 1025 500 Other: Voiding Method Urinal Urinal # Voids 6 - Exam In general patient is alert, confused, in no apparent distress HEENT head normocephalic and atraumatic Neck is supple no JVD no goiter no lymphadenopathy no carotid bruit Chest examination is clear to auscultation no crackles no wheezing Cardiac exam reveals regular heart sounds S1 and S2 no gallops no murmurs Abdomen is soft nontender no organomegaly with normal bowel sounds Extremity exam reveals no edema no cyanosis or clubbing Neurological examination reveals no gross focal deficits - Labs CBC & Chem 7: 12/06/20 06:09 12/06/20 06:09 Assessment and Plan Plan: Episode of confusion and mental status changes, cause at this time is not clear, patient is admitted to medical floor for further evaluation and treatment Recent fall with facial trauma, however per family symptoms started prior to fal l. Underlying history of seizure disorder maintained on Vimpat, no new witnessed seizures at this time. Underlying history of psychosis maintained on Zyprexa, with history of recent admission to the psychiatry unit Underlying history of alcohol use disorder however patient is denying any recent alcohol use, alcohol is negative in emergency room. Underlying history of gout At this time patient is admitted to medical floor Neurology and psychiatry consultation requested Vimpat level ordered in the emergency room, and may take several days until we have test result Home medications reviewed and reordered For GI prophylaxis protonix for DVT prophylaxis subcu Lovenox
[2020-12-08 11:36] VITALS: BP 112/76; PULSE 67; TEMP 97.8
--- NOTE | 2020-12-08 13:12 | P.DS ---
Providers Date of admission: 12/05/20 17:56 Expected date of discharge: 12/08/20 Attending physician: Aries Ma Consults: 12/05/20 17:56 Consult Physician Urgent Consulting Provider: Maxwell Hooks Consult Reason/Comments: ams Do you want consulting provider notified?: Yes 12/05/20 20:48 Consult Physician Routine Consulting Provider: Molina Manzano Consult Reason/Comments: Mental status changes Do you want consulting provider notified?: Yes Primary care physician: Aries Ma [facility] Course: Discharge diagnosis Episode of confusion and mental status changes, cause at this time is not clear, patient is admitted to medical floor for further evaluation and treatment Recent fall with facial trauma, however per family symptoms started prior to fall. Underlying history of seizure disorder maintained on Vimpat, no new witnessed seizures at this time. Underlying history of psychosis maintained on Zyprexa, with history of recent admission to the psychiatry unit Underlying history of alcohol use disorder however patient is denying any recent alcohol use, alcohol is negative in emergency room. Underlying history of gout Hospital course Marco Antonio South, is a 50-year-old male well-known to my practice who presented to [facility] emergency room with a chief complaint of mental status changes, family states that patient had a fall with facial trauma today with subsequent bloody nose, however his symptoms of confusion and mental status changes started the prior to his fall, and worsened after the fall. Patient has a previous history of seizure disorder maintained on Vimpat, he also has a known history of psychosis, and history of alcohol use disorder. Patient was evaluated in the emergency room vital examination on presentation revealed a temperature of 98.2 pulse 72 respirations 16 blood pressure 148/100 pulse ox 97% on room air. Laboratory data revealed a white blood count of 5.5 hemoglobin 13.6 platelet count 164 sodium 145 potassium 4.2 chloride 110 CO2 29 BUN 17 creatinine 0.64 troponin level was normal urine analysis normal urine toxicology screen was negative serum alcohol level was negative coronavirus PCR was negative. Computed tomography scan of the head and cervical spine was done in the emergency room without contrast and did not reveal any acute abnormality there was a probable ascending aortic aneurysm which is an incidental finding. EKG done in the emergency room revealed normal sinus rhythm with rightward axis otherwise no acute abnormality. Chest x-ray done in the emergency room revealed no acute cardiopulmonary process . Patient was started on IV Ativan in the emergency room and was admitted to medical floor neurology consultation and psychiatry consultation were requested. On 12/06/2020 patient was seen and examined on the medical floor he is alert slightly confused in no apparent distress no new seizure activity reported since admission, dose of Vimpat was increased to 200 mg twice daily per neurology recommendation, otherwise patient denies any complaints there is no fever or chills no headache or dizziness no chest pain no shortness of breath no cough no nausea or vomiting no abdominal pain no diarrhea and no urinary symptoms On 12/07/2020 patient was seen and examined on the medical floor he is alert and oriented 3 in no apparent distress there is no fever or chills no headache or dizziness no chest pain no shortness of breath no cough no nausea or vomiting no abdominal pain no diarrhea and no urinary symptoms. At this time patient was seen and examined by neurology and was cleared for discharge, dose of Vimpat was increased to 1200 mg twice daily, patient is also being evaluated by psychiatry, medications are still being adjusted dose of Zyprexa was decreased and Cogentin was added, will discuss with psychiatry on what medications and wanted him to be discharged home. Possible discharge to home tomorrow On 12/09/2020 patient is alert and oriented 3. Patient appears calm and answers questions appropriately. Patient was evaluated by neurology and psychiatry services. Per neurology services Vimpat increased to 200 mg twice a day and Depakote 250 one tab twice a day added. Per psychiatry services patient Zyprexa decreased to 5 mg twice a day and Cogentin 0.5 mg twice a day added. Patient cleared for discharge. Patient denies any chest pain or shortness breath. Patient denies nausea vomiting or diarrhea. Patient denies any urinary burning or frequency Patient Condition at Discharge: Stable Plan - Discharge Summary Discharge Rx Participant: No New Discharge Prescriptions: New Benztropine Mesylate [Cogentin] 0.5 mg PO BID 30 Days #60 tab Lacosamide [Vimpat] 50 mg PO BID 30 Days #60 tablet OLANZapine [ZyPREXA] 5 mg PO BID 30 Days #60 tab Divalproex [Depakote] 250 mg PO BID 30 Days #60 tablet.dr Continue allopurinoL [Zyloprim] 100 mg PO DAILY #30 tab Metoprolol Succinate [Toprol XL] 25 mg PO BID lisinopriL [Zestril] 2.5 mg PO DAILY Baclofen 10 mg PO BID PRN PRN Reason: MUSCLE SPASM Rosuvastatin Calcium [Crestor] 5 mg PO DAILY Thiamine [Vitamin B-1] 100 mg PO BID-W/MEALS 30 Days #30 tab Cholecalciferol [Vitamin D3 (25 Mcg = 1000 Iu)] 50 mcg PO DAILY FLUoxetine HCL [PROzac] 40 mg PO DAILY Levothyroxine Sodium [Synthroid] 100 mcg PO DAILY@0630 Lacosamide [Vimpat] 150 mg PO BID Discontinued OLANZapine [ZyPREXA] 10 mg PO TID 30 Days tab Discharge Medication List allopurinoL [Zyloprim] 100 mg PO DAILY #30 tab 06/21/18 [Rx] Metoprolol Succinate [Toprol XL] 25 mg PO BID 12/24/19 [History] lisinopriL [Zestril] 2.5 mg PO DAILY 12/24/19 [History] Baclofen 10 mg PO BID PRN 08/30/20 [History] Rosuvastatin Calcium [Crestor] 5 mg PO DAILY 10/15/20 [History] Thiamine [Vitamin B-1] 100 mg PO BID-W/MEALS 30 Days #30 tab 10/20/20 [Rx] Cholecalciferol [Vitamin D3 (25 Mcg = 1000 Iu)] 50 mcg PO DAILY 12/05/20 [History] FLUoxetine HCL [PROzac] 40 mg PO DAILY 12/05/20 [History] Lacosamide [Vimpat] 150 mg PO BID 12/05/20 [History] Levothyroxine Sodium [Synthroid] 100 mcg PO DAILY@0630 12/05/20 [History] Benztropine Mesylate [Cogentin] 0.5 mg PO BID 30 Days #60 tab 12/08/20 [Rx] Divalproex [Depakote] 250 mg PO BID 30 Days #60 tablet. 12/08/20 [Rx] Lacosamide [Vimpat] 50 mg PO BID 30 Days #60 tablet 12/08/20 [Rx] OLANZapine [ZyPREXA] 5 mg PO BID 30 Days #60 tab 12/08/20 [Rx] Follow up Appointment(s)/Referral(s): Aries Ma MD [Primary Care Provider] - 1-2 days Patient Instructions/Handouts: Seizure/Epilepsy Discharge Instructions & Follow-Up Discharge Disposition: HOME SELF-CARE
== END 2020-12-08 14:49 | disposition home or self-care (01) | DRG 101 ==
LOC: EC 16:16 → 5NMEDONC 17:56
PROVIDERS: ADMIT Internal Medicine; ATTEND Internal Medicine
DX: G40.909 Epilepsy, unspecified, not intractable, without status epilepticus (principal); I42.9 Cardiomyopathy, unspecified; I47.1 Supraventricular tachycardia; E03.9 Hypothyroidism, unspecified; E78.5 Hyperlipidemia, unspecified; F10.10 Alcohol abuse, uncomplicated; F29 Unspecified psychosis not due to a substance or known physiological condition; F32.9 Major depressive disorder, single episode, unspecified; F41.0 Panic disorder [episodic paroxysmal anxiety]; I10 Essential (primary) hypertension; I71.2 Thoracic aortic aneurysm, without rupture; R04.0 Epistaxis; W19.XXXA Unspecified fall, initial encounter; Z79.890 Hormone replacement therapy; Z79.899 Other long term (current) drug therapy; Z86.73 Personal history of transient ischemic attack (TIA), and cerebral infarction without residual deficits; Z20.822 Contact with and (suspected) exposure to COVID-19; G25.71 Drug induced akathisia; K57.90 Diverticulosis of intestine, part unspecified, without perforation or abscess without bleeding; R45.1 Restlessness and agitation; M10.9 Gout, unspecified; Z88.0 Allergy status to penicillin; Z88.2 Allergy status to sulfonamides
CPT/HCPCS: 36415; 70450; 71046; 72125; 80053; 80235; 80306; 80320; 81003; 82140; 84484; 85025; 85610; 85730; 87635; 93005; 94760; 96374; 99285

== ENCOUNTER 2020-12-09 10:17 | Observation (INO) | payer OTHER ==
[2020-12-09 10:56] LABS: Glucose,Whole Blood 101 mg/dL (75-99)
[2020-12-09] MEDS ORDERED: SODIUM CHLORIDE 0.9% 500 ML 500 ML IV ONE (11:05)
--- NOTE | 2020-12-09 11:26 | ED ---
Altered Mental Status HPI - General Chief Complaint: Altered Mental Status Stated Complaint: Confusion/dizziness Time Seen by Provider: 12/09/20 10:43 Source: patient Mode of arrival: ambulatory Limitations: no limitations - History of Present Illness Initial Comments: Patient is a 50-year-old male with history of seizure disorder, alcohol abuse, hypertension, presenting to the emergency department with his father were concerned for altered mental status. Per father, patient was discharged yesterday from our facility after having a seizure, psychosis, was doing well until later in the evening when he noticed he was dropping things, he stayed up until approximately 5 AM and then when he got up this morning approximately 7:30 to 8 AM he seemed more confused than usual, not answering questions appropriately. Father states that this is a same way he appeared a few days ago when he came into the hospital. He was seen by neurology and psychology, and was cleared to be discharged home. Patient denies any falls, father states he did not see any falls. He does believe patient had half a beer last night. Does not believe any other drug use. Patient does not have any complaints right now. Patient's vital signs are stable upon arrival. - Related Data Home Medications Medication Instructions Recorded Confirmed Metoprolol Succinate [Toprol XL] 25 mg PO BID 12/24/19 12/09/20 lisinopriL [Zestril] 2.5 mg PO DAILY 12/24/19 12/09/20 Baclofen 10 mg PO BID PRN 08/30/20 12/09/20 Rosuvastatin Calcium [Crestor] 5 mg PO DAILY 10/15/20 12/09/20 Cholecalciferol [Vitamin D3 (25 50 mcg PO DAILY 12/05/20 12/09/20 Mcg = 1000 Iu)] FLUoxetine HCL [PROzac] 40 mg PO DAILY 12/05/20 12/09/20 Lacosamide [Vimpat] 150 mg PO BID 12/05/20 12/09/20 Levothyroxine Sodium [Synthroid] 100 mcg PO DAILY@0630 12/05/20 12/09/20 Previous Rx's Medication Instructions Recorded allopurinoL [Zyloprim] 100 mg PO DAILY #30 tab 06/21/18 Thiamine [Vitamin B-1] 100 mg PO BID-W/MEALS 30 Days #30 10/20/20 tab Benztropine Mesylate [Cogentin] 0.5 mg PO BID 30 Days #60 tab 12/08/20 Divalproex [Depakote] 250 mg PO BID 30 Days #60 tablet. 12/08/20 Lacosamide [Vimpat] 50 mg PO BID 30 Days #60 tablet 12/08/20 OLANZapine [ZyPREXA] 5 mg PO BID 30 Days #60 tab 12/08/20 Allergies Allergy/AdvReac Type Severity Reaction Status Date / Time amoxicillin Allergy Rash/Hives Verified 12/09/20 12:16 Sulfa (Sulfonamide Allergy Rash/Hives Verified 12/09/20 12:16 Antibiotics) Review of Systems ROS Statement: Those systems with pertinent positive or pertinent negative responses have been documented in the HPI. ROS Other: All systems not noted in ROS Statement are negative. Past Medical History Past Medical History: Chest Pain / Angina, CVA/TIA, Hyperlipidemia, Hypertension, Seizure Disorder, Supraventricular Tachycardia (SVT), Syncope, Thyroid Disorder Additional Past Medical History / Comment(s): Pt states he had a small stroke in the past but no deficits, SVT with ablation, atach, acute enceph alopathies/altered mental status associated with alcohol consumption, ETOH, hypothyroid, diverticular disease, chronic low back pain/spasms, last seizure possibly . History of Any Multi-Drug Resistant Organisms: None Reported Past Surgical History: Cardiac Ablation, Heart Catheterization Additional Past Surgical History / Comment(s): Cardiac ablation for SVT, tilt table test, stress test 2017, heart cath 2017, colonoscopy.. Past Anesthesia/Blood Transfusion Reactions: No Reported Reaction Additional Past Anesthesia/Blood Transfusion Reaction / Comment(s): Pt has never had transfusion. Past Psychological History: No Psychological Hx Reported, Anxiety, Depression, Panic Disorder Smoking Status: Never smoker Past Alcohol Use History: None Reported Past Drug Use History: None Reported - Past Family History Mother History Unknown: Yes Family Medical History: Musculoskeletal Disorder, Neurologic Disorder Additional Family Medical History / Comment(s): MS. Mother is living. Father History Unknown: Yes Additional Family Medical History / Comment(s): BREATHING PROBLEMS-never goes to the doctor. Father is living. General Exam - General Exam Comments Initial Comments: GENERAL: Patient is well-developed and well-nourished. Patient is nontoxic and in no acute distress, appears altered. HEAD: Atraumatic, normocephalic. EYES: Pupils equal round and reactive to light, extraocular movements intact, sclera anicteric, conjunctiva are normal. Eyelids were unremarkable. ENT: TMs normal, nares patent, oropharynx clear without exudates. Moist mucous membranes. NECK: Normal range of motion, supple without lymphadenopathy or JVD. No tenderness. LUNGS: Unlabored respirations. Breath sounds clear to auscultation bilaterally and equal. No wheezes rales or rhonchi. HEART: Regular rate and rhythm without murmurs, rubs or gallops. ABDOMEN: Soft, nontender, normoactive bowel sounds. No guarding, no rebound. No masses appreciated. : Deferred MUSCULOSKELETAL: Normal extremities with adequate strength and normal range of motion, no pitting or edema. No clubbing or cyanosis. NEUROLOGICAL: Patient is alert and oriented x 1, not answering questions appropriately, does not know where he is, his dad's name, or the month/year. Motor and sensory are also intact. Cranial nerves II through XII grossly intact. Symmetrical smile. PSYCH: Feel like there is some sort of psychosis. SKIN: Warm, Dry, normal turgor, no rashes or lesions noted. Limitations: no limitations Course Vital Signs 12/09/20 12/09/20 12/09/20 10:30 12:07 15:13 Temperature 98 F Pulse Rate 85 71 76 Respiratory 18 18 18 Rate Blood Pressure 121/63 140/99 160/84 O2 Sat by Pulse 99 96 100 Oximetry Medical Decision Making - Medical Decision Making Patient is a 50-year-old male with history of recent admission for altered mental, psychosis, discharged yesterday, presenting again for altered mental status. Father states he was doing okay yesterday after discharge and then stayed up until approximate 5 AM, only slept for 2 hours and then woke up not answering questions not acting appropriately; EMS. His vitals were stable upon arrival, he was alert but not answering questions appropriately. No focal neuro deficits on exam. Lab work is stable, no acute findings, troponin is normal, urine shows no evidence of infection, positive for benzos, serum alcohol is negative. Chest x-ray showed no acute findings, patient had a CT of the head 4 days ago which revealed no acute findings. He said no falls. Patient received fluids here in the ER, he was reexamined, he is starting to answer questions more appropriately, father states he seems to be more at his baseline however he is not comfortable with patient being discharged back home, we will admit him for altered mental status. Dr. Ma is accepting. Case discussed with Dr. Chaney. - Lab Data Result diagrams: 12/09/20 11:06 12/09/20 11:06 Lab Results 12/09/20 12/09/20 12/09/20 Range/Units 10:44 11:06 11:06 WBC 5.9 (3.8-10.6) k/uL RBC 4.43 (4.30-5.90) m/uL Hgb 14.0 (13.0-17.5) gm/dL Hct 42.8 (39.0-53.0) % MCV 96.5 (80.0-100.0) fL MCH 31.7 (25.0-35.0) pg MCHC 32.8 (31.0-37.0) g/dL RDW 14.8 (11.5-15.5) % Plt Count 194 (150-450) k/uL MPV 6.7 Neutrophils % 50 % Lymphocytes % 37 % Monocytes % 8 % Eosinophils % 3 % Basophils % 1 % Neutrophils # 3.0 (1.3-7.7) k/uL Lymphocytes # 2.2 (1.0-4.8) k/uL Monocytes # 0.5 (0-1.0) k/uL Eosinophils # 0.2 (0-0.7) k/uL Basophils # 0.0 (0-0.2) k/uL PT 10.0 (9.0-12.0) sec INR 0.9 (<1.2) APTT 24.5 (22.0-30.0) sec Sodium (137-145) mmol/L Potassium (3.5-5.1) mmol/L Chloride (98-107) mmol/L Carbon Dioxide (22-30) mmol/L Anion Gap mmol/L BUN (9-20) mg/dL Creatinine (0.66-1.25) mg/dL Est GFR (CKD-EPI)AfAm (>60 ml/min/1.73 sqM) Est GFR (CKD-EPI)NonAf (>60 ml/min/1.73 sqM) Glucose (74-99) mg/dL POC Glucose (mg/dL) 101 H (75-99) mg/dL POC Glu Cattle Dipper ID Tyra Craig Calcium (8.4-10.2) mg/dL Total Bilirubin (0.2-1.3) mg/dL AST (17-59) U/L ALT (4-49) U/L Alkaline Phosphatase (38-126) U/L Creatine Kinase (55-170) U/L Troponin I (0.000-0.034) ng/mL Total Protein (6.3-8.2) g/dL Albumin (3.5-5.0) g/dL Urine Color Urine Appearance (Clear) Urine pH (5.0-8.0) Ur Specific [place] (1.001-1.035) Urine Protein (Negative) Urine Glucose (UA) (Negative) Urine Ketones (Negative) Urine Blood (Negative) Urine Nitrite (Negative) Urine Bilirubin (Negative) Urine Urobilinogen (<2.0) mg/dL Ur Leukocyte Esterase (Negative) Urine Opiates Screen (NotDetected) Ur Oxycodone Screen (NotDetected) Urine Methadone Screen (NotDetected) Ur Propoxyphene Screen (NotDetected) Ur Barbiturates Screen (NotDetected) U Tricyclic Antidepress (NotDetected) Ur Phencyclidine Scrn (NotDetected) Ur Amphetamines Screen (NotDetected) U Methamphetamines Scrn (NotDetected) U Benzodiazepines Scrn (NotDetected) Urine Cocaine Screen (NotDetected) U Marijuana (THC) Screen (NotDetected) Serum Alcohol mg/dL 12/09/20 12/09/20 12/09/20 Range/Units 11:06 11:06 14:05 WBC (3.8-10.6) k/uL RBC (4.30-5.90) m/uL Hgb (13.0-17.5) gm/dL Hct (39.0-53.0) % MCV (80.0-100.0) fL MCH (25.0-35.0) pg MCHC (31.0-37.0) g/dL RDW (11.5-15.5) % Plt Count (150-450) k/uL MPV Neutrophils % % Lymphocytes % % Monocytes % % Eosinophils % % Basophils % % Neutrophils # (1.3-7.7) k/uL Lymphocytes # (1.0-4.8) k/uL Monocytes # (0-1.0) k/uL Eosinophils # (0-0.7) k/uL Basophils # (0-0.2) k/uL PT (9.0-12.0) sec INR (<1.2) APTT (22.0-30.0) sec Sodium 145 (137-145) mmol/L Potassium 4.2 (3.5-5.1) mmol/L Chloride 108 H (98-107) mmol/L Carbon Dioxide 28 (22-30) mmol/L Anion Gap 9 mmol/L BUN 22 H (9-20) mg/dL Creatinine 0.95 (0.66-1.25) mg/dL Est GFR (CKD-EPI)AfAm >90 (>60 ml/min/1.73 sqM) Est GFR (CKD-EPI)NonAf >90 (>60 ml/min/1.73 sqM) Glucose 103 H (74-99) mg/dL POC Glucose (mg/dL) (75-99) mg/dL POC Glu [place]attle [place]pper ID Calcium 9.7 (8.4-10.2) mg/dL Total Bilirubin 0.6 (0.2-1.3) mg/dL AST 30 (17-59) U/L ALT 19 (4-49) U/L Alkaline Phosphatase 84 (38-126) U/L Creatine Kinase 74 (55-170) U/L Troponin I <0.012 (0.000-0.034) ng/mL Total Protein 7.3 (6.3-8.2) g/dL Albumin 4.6 (3.5-5.0) g/dL Urine Color Yellow Urine Appearance Clear (Clear) Urine pH 6.0 (5.0-8.0) Ur Specific [place] 1.017 (1.001-1.035) Urine Protein Negative (Negative) Urine Glucose (UA) Negative (Negative) Urine Ketones 1+ H (Negative) Urine Blood Negative (Negative) Urine Nitrite Negative (Negative) Urine Bilirubin Negative (Negative) Urine Urobilinogen <2.0 (<2.0) mg/dL Ur Leukocyte Esterase Negative (Negative) Urine Opiates Screen Not Detected (NotDetected) Ur Oxycodone Screen Not Detected (NotDetected) Urine Methadone Screen Not Detected (NotDetected) Ur Propoxyphene Screen Not Detected (NotDetected) Ur Barbiturates Screen Not Detected (NotDetected) U Tricyclic Antidepress Not Detected (NotDetected) Ur Phencyclidine Scrn Not Detected (NotDetected) Ur Amphetamines Screen Not Detected (NotDetected) U Methamphetamines Scrn Not Detected (NotDetected) U Benzodiazepines Scrn Detected H (NotDetected) Urine Cocaine Screen Not Detected (NotDetected) U Marijuana (THC) Screen Not Detected (NotDetected) Serum Alcohol <10 mg/dL Disposition Clinical Impression: Altered mental status Disposition: ADMITTED IP TO THIS [facility] Condition: Stable Is patient prescribed a controlled substance at d/c from ED?: No Decision Date: 12/09/20 Decision Time: 15:23
[2020-12-09 11:40] LABS: INR 0.9 (<1.2); Partial Thromboplastin Time 24.5 sec (22.0-30.0)
[2020-12-09 11:41] LABS: ALT 19 U/L (4-49); AST 30 U/L (17-59); African American GFR (CKD) >90 (>60 ml/min/1.73 sqM); Albumin 4.6 g/dL (3.5-5.0); Alcohol <10 mg/dL; Alkaline Phosphatase 84 U/L (38-126); Anion Gap 9 mmol/L; Basophils % (A) 1 %; Blood Urea Nitrogen 22 mg/dL (9-20); Calcium 9.7 mg/dL (8.4-10.2); Carbon Dioxide 28 mmol/L (22-30); Chloride 108 mmol/L (98-107); Creatine Kinase 74 U/L (55-170); Eosinophils # (A) 0.2 k/uL (0-0.7); Eosinophils % (A) 3 %; Glucose 103 mg/dL (74-99); HCT 42.8 % (39.0-53.0); Lymphocytes # (A) 2.2 k/uL (1.0-4.8); Lymphocytes % (A) 37 %; MCH 31.7 pg (25.0-35.0); MCHC 32.8 g/dL (31.0-37.0); MCV 96.5 fL (80.0-100.0); Mean Platelet Volume 6.7; Monocytes # (A) 0.5 k/uL (0-1.0); Monocytes % (A) 8 %; Neutrophils % (A) 50 %; Non-African American GFR(CKD) >90 (>60 ml/min/1.73 sqM); Platelet Count 194 k/uL (150-450); Potassium 4.2 mmol/L (3.5-5.1); RBC 4.43 m/uL (4.30-5.90); RDW 14.8 % (11.5-15.5); Sodium 145 mmol/L (137-145); Total Bilirubin 0.6 mg/dL (0.2-1.3); Total Protein 7.3 g/dL (6.3-8.2); WBC 5.9 k/uL (3.8-10.6)
--- NOTE | 2020-12-09 13:15 | XR ---
EXAMINATION TYPE: XR chest 2V DATE OF EXAM: 12/09/2020 COMPARISON: 12/05/2020 HISTORY: 50-year-old male confusion, altered mental status TECHNIQUE: AP and lateral views FINDINGS: Heart borderline enlarged. Loop recorder device projects over the left heart margin. The aorta and co ronary vasculature within normal limits. No consolidation or pleural effusion. IMPRESSION: Stable exam with borderline heart size. No acute cardiopulmonary process.
[2020-12-09 14:25] LABS: Appearance,Urine Clear (Clear); Bilirubin,Urine Negative (Negative); Blood,Urine Negative (Negative); Color,Urine Yellow; Glucose,Urine (UA) Negative (Negative); Ketones,Urine 1+ (Negative); Leukocyte Esterase,Urine Negative (Negative); Nitrite,Urine Negative (Negative); Protein,Urine Negative (Negative); Specific Gravity,Urine 1.017 (1.001-1.035); Urobilinogen,Urine <2.0 mg/dL (<2.0)
[2020-12-09 14:39] LABS: Amphetamine Screen,Urine Not Detected (NotDetected); Barbiturate Screen,Urine Not Detected (NotDetected); Benzodiazepines Screen,Urine Detected (NotDetected); Cocaine Screen,Urine Not Detected (NotDetected); Methadone Screen, Urine Not Detected (NotDetected); Opiate Screen,Urine Not Detected (NotDetected); Oxycodone Screen, Urine Not Detected (NotDetected); Phencyclidine Screen,Urine Not Detected (NotDetected); Tricyclic Antidepressant,Urine Not Detected (NotDetected); Urn Cannabinoid Scrn Not Detected (NotDetected)
[2020-12-09] MEDS ORDERED: ACETAMINOPHEN TAB 325 MG TAB PO PRN (15:22)
[2020-12-09] MEDS ORDERED: NALOXONE 0.4 MG/ML 1 ML VIAL IV PRN (15:22)
[2020-12-09] MEDS: SODIUM CHLORIDE 0.9% 1,000 ML IV SCH (17:11)
[2020-12-09] MEDS ORDERED: BACLOFEN 10 MG TAB PO PRN (17:28)
[2020-12-09] MEDS: THIAMINE 100 MG TAB PO SCH (18:56)
[2020-12-09] MEDS: BENZTROPINE MESYLATE 0.5 MG TAB PO SCH (20:19)
[2020-12-09] MEDS: DIVALPROEX 250 MG TABLET.DR PO SCH (20:19)
[2020-12-09] MEDS: OLANZapine 5 MG TAB PO SCH (20:19)
[2020-12-09] MEDS: METOPROLOL SUCCINATE (ER) 25 MG TAB.ER.24H PO SCH (20:20)
[2020-12-09] MEDS: LACOSAMIDE 150 MG TABLET PO SCH (20:20)
[2020-12-09] MEDS: LACOSAMIDE 50 MG TABLET PO SCH (20:20)
[2020-12-10] MEDS: SODIUM CHLORIDE 0.9% 1,000 ML IV SCH ×2 (06:10→18:37)
[2020-12-10] MEDS: LEVOTHYROXINE 100 MCG TAB PO SCH (06:10)
[2020-12-10] MEDS: METOPROLOL SUCCINATE (ER) 25 MG TAB.ER.24H PO SCH ×2 (08:33→20:37)
[2020-12-10] MEDS: CHOLECALCIFEROL 25 MCG (1000 IU) TABLET PO SCH (08:33)
[2020-12-10] MEDS: FLUoxetine HCL 20 MG CAP PO SCH (08:33)
[2020-12-10] MEDS: LACOSAMIDE 50 MG TABLET PO SCH ×2 (08:33→20:37)
[2020-12-10] MEDS: DIVALPROEX 250 MG TABLET.DR PO SCH ×2 (08:34→20:37)
[2020-12-10] MEDS: THIAMINE 100 MG TAB PO SCH ×2 (08:34→17:26)
[2020-12-10] MEDS: ATORVASTATIN 10 MG TAB PO SCH (08:34)
[2020-12-10] MEDS: allopurinoL 100 MG TAB PO SCH (08:34)
[2020-12-10] MEDS: LACOSAMIDE 150 MG TABLET PO SCH ×2 (08:34→20:37)
[2020-12-10] MEDS: OLANZapine 5 MG TAB PO SCH ×2 (08:34→20:36)
[2020-12-10] MEDS: BENZTROPINE MESYLATE 0.5 MG TAB PO SCH ×2 (08:34→20:37)
--- NOTE | 2020-12-10 12:25 | P.CNNES ---
History of Present Illness Consult date: 12/10/20 Requesting physician: Aries Ma Reason for Consult: altered mental satus change History of Present Illness: This is a 50-year-old gentleman with history of epilepsy, stroke (right limb basal ganglia per patient about 6 years ago_, falls likely due to medication effect as well as alcohol use, hypothyroidism, cardiomyopathy status post ablation who presented emergency department on 12/09/2020. Patient is known to the neurology service and was last seen by me on 12/07/2020 (progress note) for breakthrough seizure and was discharged home. I spoke with the patient's mother (Lily) via phone. She stated the night of 12/08/2020 (on Sunday) the patient's falling noticed that patient was falling so he made sure the patient went to bed prior to the father going to bed. No jerking of any extremities, no foaming around the mouth or gaze deviation. Then around 7-8am next day the mother herd a fall. She checked on her son and noticed he was confused, his leg was giving out (possibly right). He had a pale look to his face. But denies any gaze deviation, foaming around the mouth or jerking of any extremities. So that alarmed her and as result he was brought to the hospital. She stated the patient continues to drink alcohol and possibly had 1 can of beer. He notified the nurse he took 9 baclofen with his beer the night prior coming to the hospital. The patient feels back to baseline. Of note on last visit we recommended the patient to be on Vimpat 200mg every 12 hours and Depakote 250mg every 12 hours. But per the mother they did not have a chance to fill the script and was only taking Vimpat 150mg every 12 hours. He is also on multiple other medication such as Synthroid, Meclizine, metoprol ol, Fluoxetine 40mg, Lisnopril 2.5mg and Rosuvastatin 5mg daily. Work-up in the hospital: Initial vitals: Blood pressure of 121/63, heart rate of 85, respiratory of 18, temperature of 98.0 Fahrenheit pulse ox of 99% room air. WBC: 5.9K normal. Initial POC glucose is 101 and the rest of the chemistry panel is within normal limits AST of 30 and ALT of 19. CK level is 74 which is within normal limits. Urine toxicology screen is positive for benzo. The serum alcohol was less than 10 Review of Systems Review of system: The 12 point system was reviewed and apparent positive and negative per HPI. Past Medical History Past Medical History: Chest Pain / Angina, CVA/TIA, Hyperlipidemia, Hypertension, Seizure Disorder, Supraventricular Tachycardia (SVT), Syncope, Thyroid Disorder Additional Past Medical History / Comment(s): Pt states he had a small stroke in the past but no deficits, SVT with ablation, atach, acute encephalopathies/altered mental status associated with alcohol consumption, ETOH, hypothyroid, diverticular disease, chronic low back pain/spasms, last seizure possibly . History of Any Multi-Drug Resistant Organisms: None Reported Past Surgical History: Cardiac Ablation, Heart Catheterization Additional Past Surgical History / Comment(s): Cardiac ablation for SVT, tilt table test, stress test 2017, heart cath 2017, colonoscopy.. Past Anesthesia/Blood Transfusion Reactions: No Reported Reaction Additional Past Anesthesia/Blood Transfusion Reaction / Comment(s): Pt has never had transfusion. Smoking Status: Never smoker - Past Family History Mother History Unknown: Yes Family Medical History: Musculoskeletal Disorder, Neurologic Disorder Additional Family Medical History / Comment(s): MS. Mother is living. Father History Unknown: Yes Additional Family Medical History / Comment(s): BREATHING PROBLEMS-never goes to the doctor. Father is living. Medications and Allergies Home Medications Medication Instructions Recorded Confirmed Type allopurinoL [Zyloprim] 100 mg PO DAILY #30 tab 06/21/18 12/09/20 Rx Metoprolol Succinate [Toprol XL] 25 mg PO BID 12/24/19 12/09/20 History lisinopriL [Zestril] 2.5 mg PO DAILY 12/24/19 12/09/20 History Baclofen 10 mg PO BID PRN 08/30/20 12/09/20 History Rosuvastatin Calcium [Crestor] 5 mg PO DAILY 10/15/20 12/09/20 History Thiamine [Vitamin B-1] 100 mg PO BID-W/MEALS 30 Days #30 10/20/20 12/09/20 Rx tab Cholecalciferol [Vitamin D3 (25 50 mcg PO DAILY 12/05/20 12/09/20 History Mcg = 1000 Iu)] FLUoxetine HCL [PROzac] 40 mg PO DAILY 12/05/20 12/09/20 History Lacosamide [Vimpat] 150 mg PO BID 12/05/20 12/09/20 History Levothyroxine Sodium [Synthroid] 100 mcg PO DAILY@0630 12/05/20 12/09/20 History Benztropine Mesylate [Cogentin] 0.5 mg PO BID 30 Days #60 tab 12/08/20 12/09/20 Rx Divalproex [Depakote] 250 mg PO BID 30 Days #60 tablet. 12/08/20 12/09/20 Rx Lacosamide [Vimpat] 50 mg PO BID 30 Days #60 tablet 12/08/20 12/09/20 Rx OLANZapine [ZyPREXA] 5 mg PO BID 30 Days #60 tab 12/08/20 12/09/20 Rx Allergies Allergy/AdvReac Type Severity Reaction Status Date / Time amoxicillin Allergy Rash/Hives Verified 12/09/20 12:16 Sulfa (Sulfonamide Allergy Rash/Hives Verified 12/09/20 12:16 Antibiotics) Physical Examination - Vital Signs Vital Signs: Vital Signs Temp Pulse Pulse Resp BP BP Pulse Ox 12/10/20 04:50 98.9 F 67 18 134/89 96 12/09/20 19:00 98.2 F 75 20 142/90 97 12/09/20 17:15 80 18 146/95 97 12/09/20 15:13 76 18 160/84 100 12/09/20 12:07 71 18 140/99 96 Intake and Output 12/09/20 12/10/20 12/10/20 22:59 06:59 14:59 Intake Total 1400 Balance 1400 Intake: Intake, IV Titration 900 Amount Sodium Chloride 0.9% 1, 900 000 ml @ 75 mls/hr IV . [id number] FITO Rx#:[id number] Oral 500 Other: # Voids 4 Weight 63.503 kg GENERAL: The patient is lying in bed and is not in acute distress. CHEST: The heart rate is regular rate rhythm. No murmurs to auscultation. No carotid bruit bilaterally. LUNG: Clear to auscultation bilaterally no wheezing noted throughout. Not labored breathing. ABDOMEN/GI: Bowel sounds present in all 4 quadrants. No tenderness to palpation throughout. NEUROLOGICAL: Higher mental function: The patient is awake, alert, oriented to self, place and time. Patient is following commands. No aphasia and no neglect. Cranial nerves: The pupils are round, equal and reactive to light and accommodation. Visual french are full to confrontation throughout. Extraocular movement is intact no nystagmus is noted. Facial sensation is normal to touch throughout. The facial strength is normal throughout. Hearing is normal bilaterally to hand rub. Tongue is midline and moved [id number] without any difficulty. No dysarthria is noted. Shoulder shrug is normal bilaterally. Motor: The strength is 5 over 5 throughout. Normal tone and bulk. Cerebellum: Normal finger to nose heel to tran bilaterally. Sensation: Sensation is normal to touch throughout. Reflexes (right/left): 2+ throughout. Plantars are downgoing bilaterally. Results Urinalysis is negative for urinary tract infection Jordan virus PCR is not detected. - Laboratory Findings CBC and BMP: 12/09/20 11:06 12/09/20 11:06 Abnormal Lab Findings: Abnormal Labs 12/09/20 12/09/20 12/09/20 10:44 11:06 14:05 Chloride 108 H BUN 22 H Glucose 103 H POC Glucose (mg/dL) 101 H Urine Ketones 1+ H U Benzodiazepines Scrn Detected H Assessment and Plan Assessment: Altered mental status due to toxic encephalopathy (he notified the nurse he took 9 tablet of baclofen and continues to drink alcolol)--mentation improved. History of epilepsy (when discharged home recently did not have chance of getting medications we recommended). Recurrent falls due to alcohol use and medication. History of stroke over right basal ganglia over anterior limb (he stated about 6 years ago) Hypothyroidism Cardiomyopathy status post ablation Plan: Ordered MRI of the brain. Ordered routine EEG. Will give a script for prolonged outpatient EEG. Mother wants him to be seen by our epilepsy team and will attempt to coordinate that. He was restarted on Vimpat total 200 mg 1 tab bid. And was restarted on Depakote 250 mg 1 tablet twice a day Seizure precaution and seizure pads are ordered The patient was counseled on alcohol cessation. Per the [place] DMV he is to avoid driving for 6 month until Z seizure-free, avoid the heavy machinery use, swimming unassisted and avoid heights. Psychiatry is consulted. Will defer the rest of the medical management to the primary team. Thank you for the consultation. Maxwell Hooks MD Neuro-Hospitalist Time with Patient: Greater than 30
--- NOTE | 2020-12-10 16:14 | EEG ---
ELECTROENCEPHALOGRAM REPORT DATE OF SERVICE: 12/10/2020. CLINICAL HISTORY: This is a 50-year-old gentleman with a history of epilepsy, who presented to the hospital for confusion. This video EEG is obtained to evaluate for seizure epileptiform activity. RELEVANT MEDICATION: Vimpat and Depakote. EEG TYPE: A routine 21 channel EEG is performed with video using the 10/20 electrode placement system. DESCRIPTION: Wakefulness and drowsiness are obtained. During wakefulness, there is a posterior dominant rhythm of low to moderate voltage, well modulated, between 8-9 hertz activity. During drowsiness, there is slowing and attenuation of the background activity. There is no physiological stage 2 sleep architecture. There is no focal slowing. Interictal and ictal is none. ACTIVATION PROCEDURE: Photic stimulation did not evoke a positive driving response. There is no abnormality during the photic stimulation. Hyperventilation is not performed. CLINICAL INTERPRETATION: This is a normal routine EEG. There are no focal slowing, epileptiform discharges or seizure on the EEG. Clinical correlation is recommended. MMMARGARITA / KORTNEY: [id number] / [id number]
--- NOTE | 2020-12-10 16:23 | P.HPIM ---
History of Present Illness H&P Date: 12/09/20 Marco Antonio South, is a 50-year-old male who was admitted to [facility] emergency room due to mental status changes and confusion that was noticed by his family members. Patient was recently admitted with similar symptoms, he has multiple medical problems that can affect his mental clarity including seizure disorder, previous history of stroke, history of alcohol abuse, as well as history of psychosis. Patient was evaluated by neurology and psychiatry on the last admission, his med ications were optimized, he was discharged home on 12/08/2020, however he returned to emergency room on 12/09/2020 with similar symptoms of confusion and mental status changes, apparently patient did not get his new prescriptions filled. There was no evidence of any new seizure activity at this point. Past Medical History Past Medical History: Chest Pain / Angina, CVA/TIA, Hyperlipidemia, Hypertension, Seizure Disorder, Supraventricular Tachycardia (SVT), Syncope, Thyroid Disorder Additional Past Medical History / Comment(s): Pt states he had a small stroke in the past but no deficits, SVT with ablation, atach, acute encephalo pathies/altered mental status associated with alcohol consumption, ETOH, hypothyroid, diverticular disease, chronic low back pain/spasms, last seizure possibly . History of Any Multi-Drug Resistant Organisms: None Reported Past Surgical History: Cardiac Ablation, Heart Catheterization Additional Past Surgical History / Comment(s): Cardiac ablation for SVT, tilt table test, stress test 2017, heart cath 2017, colonoscopy.. Past Anesthesia/Blood Transfusion Reactions: No Reported Reaction Additional Past Anesthesia/Blood Transfusion Reaction / Comment(s): Pt has never had transfusion. Past Psychological History: No Psychological Hx Reported, Anxiety, Depression, Panic Disorder Smoking Status: Never smoker Past Alcohol Use History: None Reported Past Drug Use History: None Reported - Past Family History Mother History Unknown: Yes Family Medical History: Musculoskeletal Disorder, Neurologic Disorder Additional Family Medical History / Comment(s): MS. Mother is living. Father History Unknown: Yes Additional Family Medical History / Comment(s): BREATHING PROBLEMS-never goes to the doctor. Father is living. Medications and Allergies Home Medications Medication Instructions Recorded Confirmed Type allopurinoL [Zyloprim] 100 mg PO DAILY #30 tab 06/21/18 12/09/20 Rx Metoprolol Succinate [Toprol XL] 25 mg PO BID 12/24/19 12/09/20 History lisinopriL [Zestril] 2.5 mg PO DAILY 12/24/19 12/09/20 History Baclofen 10 mg PO BID PRN 08/30/20 12/09/20 History Rosuvastatin Calcium [Crestor] 5 mg PO DAILY 10/15/20 12/09/20 History Thiamine [Vitamin B-1] 100 mg PO BID-W/MEALS 30 Days #30 10/20/20 12/09/20 Rx tab Cholecalciferol [Vitamin D3 (25 50 mcg PO DAILY 12/05/20 12/09/20 History Mcg = 1000 Iu)] FLUoxetine HCL [PROzac] 40 mg PO DAILY 12/05/20 12/09/20 History Lacosamide [Vimpat] 150 mg PO BID 12/05/20 12/09/20 History Levothyroxine Sodium [Synthroid] 100 mcg PO DAILY@0630 12/05/20 12/09/20 History Benztropine Mesylate [Cogentin] 0.5 mg PO BID 30 Days #60 tab 12/08/20 12/09/20 Rx Divalproex [Depakote] 250 mg PO BID 30 Days #60 tablet. 12/08/20 12/09/20 Rx Lacosamide [Vimpat] 50 mg PO BID 30 Days #60 tablet 12/08/20 12/09/20 Rx OLANZapine [ZyPREXA] 5 mg PO BID 30 Days #60 tab 12/08/20 12/09/20 Rx Allergies Allergy/AdvReac Type Severity Reaction Status Date / Time amoxicillin Allergy Rash/Hives Verified 12/09/20 12:16 Sulfa (Sulfonamide Allergy Rash/Hives Verified 12/09/20 12:16 Antibiotics) Physical Exam Vitals: Vital Signs Temp Pulse Resp BP Pulse Ox 12/09/20 17:15 80 18 146/95 97 12/09/20 15:13 76 18 160/84 100 12/09/20 12:07 71 18 140/99 96 12/09/20 10:30 98 F 85 18 121/63 99 Intake and Output 12/09/20 12/09/20 12/09/20 06:59 14:59 22:59 Other: Weight 63.503 kg In general patient is alert slightly confused in no apparent distress HEENT head normocephalic and atraumatic Neck is supple no JVD no goiter no lymphadenopathy no carotid bruit Chest examination is clear to auscultation no crackles no wheezing Cardiac exam reveals regular heart sounds S1 and S2 no gallops no murmurs Abdomen is soft nontender no organomegaly with normal bowel sounds Extremity exam reveals no edema no cyanosis or clubbing Neurological examination reveals no gross focal deficits Results CBC & Chem 7: 12/09/20 11:06 12/09/20 11:06 Labs: Abnormal Lab Results - Last 24 Hours (Table) 12/09/20 12/09/20 12/09/20 Range/Units 10:44 11:06 14:05 Chloride 108 H (98-107) mmol/L BUN 22 H (9-20) mg/dL Glucose 103 H (74-99) mg/dL POC Glucose (mg/dL) 101 H (75-99) mg/dL Urine Ketones 1+ H (Negative) U Benzodiazepines Scrn Detected H (NotDetected) Assessment and Plan Plan: Mental status changes, cause is likely related to noncompliance with medications, patient did not get any of his new medication filled after discharge, also patient may be taking extra doses of baclofen Underlying history of seizure disorder, no evidence of new seizure activity at this time Previous history of stroke Underlying history of psychosis Underlying history of alcohol abuse Underlying history of gout Underlying history of hypertension Underlying history of hyperlipidemia At this time patient is admitted to medical floor medications were resumed Neurology consultation and psychiatry consultation were requested For DVT prophylaxis he was started on subcu Lovenox Will follow closely
--- NOTE | 2020-12-10 16:46 | P.PN ---
Subjective Progress Note Date: 12/10/20 Marco Antonio South, is a 50-year-old male who was admitted to [facility] emergency room due to mental status changes and confusion that was noticed by his family members. Patient was recently admitted with similar symptoms, he has multiple medical problems that can affect his mental clarity including seizure disorder, previous history of stroke, history of alcohol abuse, as well as history of psychosis. Patient was evaluated by neurology and psychiatry on the last admission, his medications were optimized, he was discharged home on 12/08/2020, however he returned to emergency room on 12/09/2020 with similar symptoms of confusion and mental status changes, apparently patient did not get his new prescriptions filled. There was no evidence of any new seizure activity at this point. On 12/10/2020 patient was seen and examined on the medical floor he is alert and slightly less confused today he denies any complaints however he is stating that he might have taken some extra baclofen pills at home, he stated that he did that because he was having some back pain and he denies any suicidal ideation or attempt. Neurology input review awaiting testing, awaiting input from psychiatr y. Will follow in a.m.. Objective - Vital Signs Vital signs: Vital Signs Temp 98.6 F 12/10/20 12:31 Pulse 46 L 12/10/20 12:31 Resp 16 12/10/20 12:31 BP 113/78 12/10/20 12:31 Pulse Ox 94 L 12/10/20 12:31 Intake & Output 12/09/20 12/10/20 12/10/20 18:59 06:59 18:59 Intake Total 1400 Balance 1400 Weight 63.503 kg 63.503 kg Intake: Intake, IV Titration 900 Amount Sodium Chloride 0.9% 1, 900 000 ml @ 75 mls/hr IV . [id number] [facility] Rx#:[id number] Oral 500 Other: # Voids 4 1 - Exam In general patient is alert slightly confused in no apparent distress HEENT head normocephalic and atraumatic Neck is supple no JVD no goiter no lymphadenopathy no carotid bruit Chest examination is clear to auscultation no crackles no wheezing Cardiac exam reveals regular heart sounds S1 and S2 no gallops no murmurs Abdomen is soft nontender no organomegaly with normal bowel sounds Extremity exam reveals no edema no cyanosis or clubbing Neurological examination reveals no gross focal deficits - Labs CBC & Chem 7: 12/09/20 11:06 12/09/20 11:06 Assessment and Plan Plan: Mental status changes, cause is likely related to noncompliance with medications, patient did not get any of his new medication filled after discharge, also patient may be taking extra doses of baclofen Underlying history of seizure disorder, no evidence of new seizure activity at this time Previous history of stroke Underlying history of psychosis Underlying history of alcohol abuse Underlying history of gout Underlying history of hypertension Underlying history of hyperlipidemia At this time patient is admitted to medical floor medications were resumed Neurology consultation and psychiatry consultation were requested For DVT prophylaxis he was started on subcu Lovenox Will follow closely
[2020-12-10] MEDS: ENOXAPARIN 40 MG/0.4 ML SYRINGE SQ SCH (17:26)
[2020-12-11] MEDS: LEVOTHYROXINE 100 MCG TAB PO SCH (05:33)
[2020-12-11] MEDS: SODIUM CHLORIDE 0.9% 1,000 ML IV SCH (05:34)
[2020-12-11 05:44] LABS: Basophils % (A) 1 %; Eosinophils # (A) 0.2 k/uL (0-0.7); Eosinophils % (A) 5 %; HCT 36.3 % (39.0-53.0); HGB 12.5 gm/dL (13.0-17.5); Lymphocytes # (A) 1.5 k/uL (1.0-4.8); Lymphocytes % (A) 34 %; MCH 33.4 pg (25.0-35.0); MCHC 34.5 g/dL (31.0-37.0); Mean Platelet Volume 6.9; Monocytes # (A) 0.4 k/uL (0-1.0); Monocytes % (A) 9 %; Neutrophils # (A) 2.2 k/uL (1.3-7.7); Neutrophils % (A) 50 %; Platelet Count 154 k/uL (150-450); RBC 3.75 m/uL (4.30-5.90); RDW 14.3 % (11.5-15.5); WBC 4.4 k/uL (3.8-10.6)
[2020-12-11] MEDS: FLUoxetine HCL 20 MG CAP PO SCH (08:09)
[2020-12-11] MEDS: THIAMINE 100 MG TAB PO SCH (08:09)
[2020-12-11] MEDS: ENOXAPARIN 40 MG/0.4 ML SYRINGE SQ SCH (08:09)
[2020-12-11] MEDS: DIVALPROEX 250 MG TABLET.DR PO SCH (08:09)
[2020-12-11] MEDS: CHOLECALCIFEROL 25 MCG (1000 IU) TABLET PO SCH (08:09)
[2020-12-11] MEDS: LACOSAMIDE 50 MG TABLET PO SCH (08:09)
[2020-12-11] MEDS: METOPROLOL SUCCINATE (ER) 25 MG TAB.ER.24H PO SCH (08:09)
[2020-12-11] MEDS: OLANZapine 5 MG TAB PO SCH (08:09)
[2020-12-11] MEDS: ATORVASTATIN 10 MG TAB PO SCH (08:10)
[2020-12-11] MEDS: LACOSAMIDE 150 MG TABLET PO SCH (08:10)
[2020-12-11] MEDS: allopurinoL 100 MG TAB PO SCH (08:10)
[2020-12-11] MEDS: BENZTROPINE MESYLATE 0.5 MG TAB PO SCH (08:10)
--- NOTE | 2020-12-11 09:16 | CONS ---
CONSULTATION DATE OF SERVICE: 12/10/2020 PURPOSE FOR CONSULTATION: Evaluate for altered mental status. HISTORY OF PRESENTING ILLNESS: I am familiar with the patient from a medical admission of 10/15/2020 and seen again in consultation for medical admission of 12/05/2020. During both of those medical admissions, he was seen in consultation for altered mental status with confusion. It is noted that he had a transfer from the medical floor to the psychiatric unit on October 22, 2020. During his medical admission from October 15, and then again in his psychiatric admission of October 22, he was having hallucinations, disorganized thinking, fluctuations in hand his behavior and function with periods of agitation. During his medical admission of October 15, there was question that he may have had seizures. He had fallen and struck his head. He had been drinking what he described as 2-4 "tall boys" about 5 days a week. He was reporting some generalized problems with anxiety, panic and depression. He had noted recent development of auditory and visual hallucinations. He was started on Zyprexa. He had been on Klonopin, which was felt to contribute to some of his confusion, so that was discontinued. It is noted that he scored 19/30 in an NMSE, indicating mild cognitive impairment. He was discharged to home October 26 and was prescribed Prozac 40 mg a day and Zyprexa 10 mg 3 times a day. The patient again had a medical admission December 05 for a fall and symptoms of confusion and mental status change. There were indications that the altered mental status had been occurring for about 3 days leading up to the fall. I saw the patient in consultation December 06, he had a some disorganization of thoughts and mild confusion. Nursing had noted that in previous days, he was more confused where he was uncertain as to what hospital he was in or even what year it was. Nursing was also noting a lot of restlessness. The patient himself acknowledged that he was feeling quite restless and anxious. I was concerned that he may be having the extrapyramidal side effects related to his Zyprexa. His dose was reduced from 10 mg 3 times a day down to 5 mg twice a day. In addition, he was started on Cogentin 0.5 mg twice a day. By the next day, the patient was showing significant improvement. He was much calmer. He was noting less restless feelings. Nurses observed at the same, that he seemed to be quieter and in a better mood. He also was oriented x3 and alert. His thinking process had shown improvement and he had reasonable orientation to his situation. It is noted that I had talked to his mother on the telephone. She said from his discharge October 26, up until recent day he was doing fairly well. He was functioning well at home. He did not seem to be confused in any way. He was able to get out in the community and seemed to be doing well in his mood. She noted that it was just in 3 days leading up to this hospitalization that he began showing a change in mental status as noted above. DISCHARGE MEDICATIONS: Discharge medications on the included Zyprexa 5 mg twice a day and Cogentin 0.5 mg twice a day. In addition, he was on Depakote and Vimpat for seizure disorder. Unfortunately, the patient had significant decline in mental status liner roll changer the next 24 hours and was readmitted on December 09 for confusion and mental status change. He had not gotten his new prescriptions filled. It is noteworthy that today, he indicated that he had taken 9 tablets of 10 mg baclofen. He said he had been prescribed baclofen in the past, but was not taking it presently, though he had 9 tablets at home that he was able to take. In addition, he drank what he described as 2 regular beers and two "tall boys of beer." He said he became confused and quite disorganized so that he was not able to clearly recall events leading up to his coming into the hospital this time. He was not able to offer much explanation as to why he took the baclofen and then again why he took 9 tablets of baclofen. He was not clear as to what he was hoping to get from taking the baclofen. He was able to acknowledge that his drinking has been quite problematic for him. I had a telephone contact with the patient's mother. She said she was unaware of the issue about his taking the baclofen or, in fact, the drinking. She only found out about these things that since he has been in the hospital. She said that she and her have tried to help manage his medications. She notes that he does use a seven-day pill container. His mother indicated that he had been prescribed baclofen at some point in the past for muscle spasms, though she is not aware that he was taking it on a regular basis nor that he was having any issues with back muscle spasms. She did say he was willing to try to make further efforts to help the patient gain control over his medications, as well as to help move him away from drinking. MENTAL STATUS EXAM: The patient was sitting up in bed. He gave fairly good eye contact. He answered questions with brief responses. For the most part, his thoughts were clear. He was somewhat spontaneous and was able to talk about the circumstances of his coming into the hospital. His affect was a little constricted though he had a friendly manner. He smiled a little. He had a quiet mood, though did not appear to be down or depressed. He did not appear to be significantly distressed. There was no outward evidence for thought disorder. He was not reporting any auditory or visual hallucinations. He was not reporting any thoughts of harm to self or others. On cognitive exam, the patient had some difficulty with specifics. When I asked him the date, he first said the . When I asked him the month, he said December and then followed that up with January. When I asked her the day of the week he first said Sunday and then he said . When I asked him to give the days of the week in reverse order, which was a cognitive measure that he had trouble with and with all my previous contacts except on the , today he responded "Sunday, Sunday, , Sunday, Sunday." Then he stopped himself and said he needed to start over and he was able to go through the days of the week appropriately without difficulties and in a reasonable robson. ASSESSMENT: It does appear that a significant factor in his readmission on the is related to his ingestion of excessive amount of baclofen coupled with alcohol. I had a somewhat limited discussion with the patient regarding this, though whether or not he has adequate processing and insight remains to be seen. I also reviewed issues with the patient's mother. At this point, I will discontinue the p.r.n. baclofen he is on and recommend he be off baclofen altogether. It is noted that for the most part his medications appear to be arranged in a b.i.d. schedule. I suggested to mother that they get a good seven-day pill container to be able to organize his medications and that beyond that all the rest of the medications in bottles be locked up and out of his reach. I also encouraged his mother to monitor his taking medications. I also discussed this with the patient who said that he needed to find a better pill container and agreed with that plan. In addition, I indicated that the patient needs to be off alcohol altogether. The patient seemed to be in agreement with this. Mother seemed to have a reasonable understanding of the risks and she continues to have exposure to alcohol. Overall patient is showing improvement in his cognition and I would anticipate him having clearing to be discharged fairly soon. If he remained stable, in regards to his mental status as well as issues relating to hallucination over a 6-8 week period, there could be consideration for reducing his Zyprexa from 5 mg twice a day down to 7.5 mg at bedtime or at it best could be reduction in his Cogentin to 0.5 mg once a day. With the combination of medications the patient is on, it does not appear that he is at significant risk for anticholinergic overexposure, though this may need to be a consideration in future prescribing. MAMIE / SILVINAN: [id number] /
[2020-12-11 10:06] LABS: African American GFR (CKD) 127.5 (60.0-200.0); Albumin 3.6 g/dL (3.80-4.90); Albumin/Globulin Ratio 1.71 (1.60-3.17); Anion Gap 6.3 mmol/L (4.00-12.00); Calcium 8.3 mg/dL (8.7-10.3); Carbon Dioxide 27.7 mmol/L (21.6-31.8); Globulin 2.1 g/dL (1.6-3.3); Potassium 3.7 mmol/L (3.5-5.5); Total Bilirubin 0.5 mg/dL (0.2-1.2); Total Protein 5.7 g/dL (6.2-8.2)
--- NOTE | 2020-12-11 10:09 | MR ---
EXAMINATION TYPE: MR brain wo/w con DATE OF EXAM: 12/11/2020 9:59 AM COMPARISON: 12/31/2017 HISTORY: Confusion, seizure, hx of head injury. FINDINGS: The ventricles, basal cisterns and sulci overlying the cerebral convexities are mildly enlarged. There is evidence of mild periventricular white matter ischemic demyelination. Remote deep white matter insults are also noted. T2 FLAIR lesions are unchanged from prior study wit h similar differential diagnosis. Basal ganglia calcifications identified. No acute edema is seen on diffusion weighted imaging. There is no evidence for midline shift or mass effect. Acute intracranial hemorrhage or extra-axial collection is not evident. The paranasal sinuses and mastoid air cells are well-aerated. IMPRESSION: Overall stable brain. Age-related atrophic and chronic small vessel ischemic change. No acute intrac ranial process at this time.
--- NOTE | 2020-12-11 11:30 | P.PN ---
Subjective Progress Note Date: 12/11/20 The patient seen at bedside and the he feels much better today compared to his initial presentation. Per the patient's nurse no seizure-like activity noted in the hospital. Patient notified me that he drinks 4 cans of beer every other day and he did confirm that he took 9 pills of baclofen. He stated he does see a therapist for his psych problems. Objective - Vital Signs Vital signs: Vital Signs Temp 98.1 F 12/11/20 04:49 Pulse 63 12/11/20 04:49 Resp 16 12/11/20 04:49 BP 108/69 12/11/20 04:49 Pulse Ox 97 12/11/20 04:49 Intake & Output 12/10/20 12/11/20 12/11/20 18:59 06:59 18:59 Intake Total 600 900 Output Total 850 Balance 600 50 Intake: Intake, IV Titration 600 900 Amount Sodium Chloride 0.9% 1, 600 900 000 ml @ 75 mls/hr IV . [id number] [facility] Rx#:[id number] Output: Urine 850 Other: Voiding Method Urinal # Voids 2 - Exam GENERAL: The patient is lying in bed and is not in acute distress. NEUROLOGICAL: Higher mental function: The patient is awake, alert, oriented to self, place and time. Patient is following commands. No aphasia and no neglect. Cranial nerves: The pupils are round, equal and reactive to light and accommodation. Visual french are full to confrontation throughout. Extraocular movement is intact no nystagmus is noted. Facial sensation is normal to touch throughout. The facial strength is normal throughout. Hearing is normal bilaterally to hand rub. Tongue is midline and moved [id number] without any difficulty. No dysarthria is noted. Shoulder shrug is normal bilaterally. Motor: The strength is 5 over 5 throughout. Normal tone and bulk. Cerebellum: Normal finger to nose heel to tran bilaterally. Sensation: Sensation is normal to touch throughout. Reflexes (right/left): 2+ throughout. Plantars are downgoing bilaterally. WORK-UP: EEG on 12/10/2020: Normal. There are no focal slowing, epileptiform discharges or seizure on EEG. MRI of the brain w/ and w/o: As reported as overall stable brain. Age-related atrophic and chronic small vessel ischemic change. No acute intracranial process at this time. 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 History of epilepsy (when discharged home recently did not have chance of getting medications we recommended). Recurrent falls due to alcohol use and medication. History of stroke over right basal ganglia over anterior limb (he stated about 6 years ago) Alcohol use (drinks 4 cans of beer every other day according to the patient) Hypothyroidism Cardiomyopathy status post ablation Plan: * Gave a script for prolonged outpatient 2 1/2 hours EEG (can be done in our facility). Mother wants him to be seen by our epilepsy team and will attempt to coordinate that. * Continue Vimpat total 200 mg 1 tab bid AND Depakote 250 mg 1 tablet twice a day * Seizure precaution and seizure pads are ordered * The patient was counseled on alcohol cessation. * Per the [place] DMV he is to avoid driving for 6 month until he is seizure-free, avoid the heavy machinery use, swimming unassisted and avoid heights. * Psychiatry is consulted. Recommend of hims seeing psychiatry team as outpatient. * Will defer the rest of the medical management to the primary team. * Upon discharge the patient needs to follow-up with his neurologist within 1-2 weeks as outpatient. The plan is discussed with the patient's nurse. I also had a discussion with the patient mother via phone regarding this. The patient is clear for discharge from neurological perspective. Maxwell Hooks MD Neuro-Hospitalist Time with Patient: Less than 30
--- NOTE | 2020-12-11 12:01 | P.CRDCN ---
History of Present Illness Consult date: 12/11/20 History of present illness: HISTORY OF PRESENT ILLNESS: This is a 50-year-old male with a past medical history significant for a CT with previous ablation, loop recorder insertion in 2016, alcohol abuse, hypertension, hyperlipidemia, and seizure disorder. Patient follows in the office with Dr. Fischer. We have been asked to see the patient in consultation for loop recorder/MRI. Patient examined at the bedside. Patient is admitted to the hosp ital secondary to altered mental status. Apparently patient took 9 baclofen pills at home. Patient is currently awake and alert. Patient denies chest pain or pressure. He denies shortness of breath. He denies any dizziness or palpitations. Patient underwent MRI of the brain today revealing overall stable brain. Age-related atrophic and chronic small vessel ischemic changes. No acute intracranial process at this time. EKG reveals sinus mechanism with no signs of acute ischemia Chest xray stable exam with borderline heart size. No acute cardio pulmonary process. Laboratory data: WBC 4.4. Hemoglobin 12.5. Platelet count 154. Sodium 144. Potassium 3.7. BUN 7. Creatinine 0.7. Current home cardiac medications include lisinopril 2.5 mg daily, Crestor 5 mg daily, metoprolol succinate 25 mg twice a day Most recent echocardiogram obtained in October 2020 revealed ejection fraction 50-5 5%, trace mitral regurgitation and mild tricuspid regurgitation Cardiac catheterization history: 2017 revealing normal coronary arteries. Normal left ventricular size with mild global hypokinesis. REVIEW OF SYSTEMS: At the time of my exam: CONSTITUTIONAL: Denies fever or chills. HEENT: Denies blurred vision, vision changes, or eye pain. Denies hemoptysis CARDIOVASCULAR: Denies chest pain. Denies orthopnea. Denies PND. Denies palpitations RESPIRATORY: Denies shortness of breath. GASTROINTESTINAL: Denies abdominal pain. Denies nausea or vomiting. HEMATOLOGIC: Denies bleeding disorders. GENITOURINARY: Denies any blood in urine. SKIN: Denies pruitis. Denies rash. PHYSICAL EXAM: VITAL SIGNS: Reviewed. GENERAL: Well-developed in no acute distress. HEENT: Head is normocephalic. Pupils are equal, round. Sclerae anicteric. Mucous membranes of the mouth are moist. Neck supple. No JVD or thyromegaly LUNGS: Respirations even and unlabored. Lungs essentially clear to auscultation bilaterally. HEART: Regular rate and rhythm. S1 and S2 heard. ABDOMEN: Soft. Nondistended. Nontender. EXTREMITIES: Normal range of motion. No clubbing or cyanosis. Peripheral pulses intact. No lower extremity edema NEUROLOGIC: Awake and alert. Oriented x 3. ASSESSMENT: Altered mental status secondary to toxic encephalopathy History of SVT with previous ablation History of loop recorder insertion, 2016, [employer] Hypertension Hyperlipidemia History of CVA History of seizure disorder PLAN: Continue home cardiac medications Patient may be discharged home today from a cardiac standpoint. Per Dr. Perez, patient may have his loop recorder interrogated at his follow-up visit outpatient Patient may follow up outpatient with Dr. Fischer We'll sign off. Please reconsult if needed. Nurse practitioner note has been reviewed by physician. Signing provider agrees with the documented findings, assessment, and plan of care. Past Medical History Past Medical History: Chest Pain / Angina, CVA/TIA, Hyperlipidemia, Hypertension, Seizure Disorder, Supraventricular Tachycardia (SVT), Syncope, Thyroid Disorder Additional Past Medical History / Comment(s): Pt states he had a small stroke in the past but no deficits, SVT with ablation, atach, acute encephalopathies/altered mental status associated with alcohol consumption, ETOH, hypothyroid, diverticular disease, chronic low back pain/spasms, last seizure possibly . History of Any Multi-Drug Resistant Organisms: None Reported Past Surgical History: Cardiac Ablation, Heart Catheterization Additional Past Surgical History / Comment(s): Cardiac ablation for SVT, tilt table test, stress test 2017, heart cath 2017, colonoscopy.. Past Anesthesia/Blood Transfusion Reactions: No Reported Reaction Additional Past Anesthesia/Blood Transfusion Reaction / Comment(s): Pt has never had transfusion. Smoking Status: Never smoker - Past Family History Mother History Unknown: Yes Family Medical History: Musculoskeletal Disorder, Neurologic Disorder Additional Family Medical History / Comment(s): MS. Mother is living. Father History Unknown: Yes Additional Family Medical History / Comment(s): BREATHING PROBLEMS-never goes to the doctor. Father is living. Medications and Allergies Home Medications Medication Instructions Recorded Confirmed Type allopurinoL [Zyloprim] 100 mg PO DAILY #30 tab 06/21/18 12/09/20 Rx Metoprolol Succinate [Toprol XL] 25 mg PO BID 12/24/19 12/09/20 History lisinopriL [Zestril] 2.5 mg PO DAILY 12/24/19 12/09/20 History Baclofen 10 mg PO BID PRN 08/30/20 12/09/20 History Rosuvastatin Calcium [Crestor] 5 mg PO DAILY 10/15/20 12/09/20 History Thiamine [Vitamin B-1] 100 mg PO BID-W/MEALS 30 Days #30 10/20/20 12/09/20 Rx tab Cholecalciferol [Vitamin D3 (25 50 mcg PO DAILY 12/05/20 12/09/20 History Mcg = 1000 Iu)] FLUoxetine HCL [PROzac] 40 mg PO DAILY 12/05/20 12/09/20 History Lacosamide [Vimpat] 150 mg PO BID 12/05/20 12/09/20 History Levothyroxine Sodium [Synthroid] 100 mcg PO DAILY@0630 12/05/20 12/09/20 History Benztropine Mesylate [Cogentin] 0.5 mg PO BID 30 Days #60 tab 12/08/20 12/09/20 Rx Divalproex [Depakote] 250 mg PO BID 30 Days #60 tablet. 12/08/20 12/09/20 Rx Lacosamide [Vimpat] 50 mg PO BID 30 Days #60 tablet 12/08/20 12/09/20 Rx OLANZapine [ZyPREXA] 5 mg PO BID 30 Days #60 tab 12/08/20 12/09/20 Rx Allergies Allergy/AdvReac Type Severity Reaction Status Date / Time amoxicillin Allergy Rash/Hives Verified 12/09/20 12:16 Sulfa (Sulfonamide Allergy Rash/Hives Verified 12/09/20 12:16 Antibiotics) Physical Exam Vitals: Vital Signs Temp Pulse Resp BP Pulse Ox 12/11/20 04:49 98.1 F 63 16 108/69 97 12/10/20 20:16 97.5 F L 62 16 111/77 97 12/10/20 20:10 62 16 12/10/20 12:31 98.6 F 46 L 16 113/78 94 L Intake and Output 12/10/20 12/11/20 12/11/20 22:59 06:59 14:59 Intake Total 600 900 Output Total 850 Balance 600 50 Intake: Intake, IV Titration 600 900 Amount Sodium Chloride 0.9% 1, 600 900 000 ml @ 75 mls/hr IV . [id number] [facility] Rx#:[id number] Output: Urine 850 Other: Voiding Method Urinal # Voids 2 Results 12/11/20 05:05 12/11/20 05:05 Cardiac Enzymes 12/11/20 Range/Units 05:05 AST 26 (14-35) U/L CBC 12/11/20 Range/Units 05:05 WBC 4.4 (3.8-10.6) k/uL RBC 3.75 L (4.30-5.90) m/uL Hgb 12.5 L (13.0-17.5) gm/dL Hct 36.3 L (39.0-53.0) % Plt Count 154 (150-450) k/uL Comprehensive Metabolic Panel 12/11/20 Range/Units 05:05 Sodium 144 (135-145) mmol/L Potassium 3.7 (3.5-5.5) mmol/L Chloride 110 H (96-109) mmol/L Carbon Dioxide 27.7 (21.6-31.8) mmol/L BUN 7.0 L (9.0-27.0) mg/dL Creatinine 0.7 (0.6-1.5) mg/dL Glucose 82 (70-110) mg/dL Calcium 8.3 L (8.7-10.3) mg/dL AST 26 (14-35) U/L ALT 22 (10-49) U/L Alkaline Phosphatase 74 (41-126) U/L Total Protein 5.7 L (6.2-8.2) g/dL Albumin 3.60 L (3.80-4.90) g/dL Current Medications Generic Name Dose Route Start Last Admin Trade Name Freq PRN Reason Stop Dose Admin Acetaminophen 650 mg 12/09/20 15:22 Acetaminophen Tab 325 Mg Tab PO Q6HR PRN Mild Pain or Fever > 100.5 Allopurinol 100 mg 12/10/20 09:00 12/11/20 08:10 Allopurinol 100 Mg Tab PO 100 mg DAILY [facility] Administration Atorvastatin Calcium 10 mg 12/10/20 09:00 12/11/20 08:10 Atorvastatin 10 Mg Tab PO 10 mg DAILY [facility]O Administration Benztropine Mesylate 0.5 mg 12/09/20 21:00 12/11/20 08:10 Benztropine Mesylate 0.5 Mg Tab PO 0.5 mg BID [facility]O Administration Cholecalciferol 50 mcg 12/10/20 09:00 12/11/20 08:09 Cholecalciferol 25 Mcg (1000 Iu) Tablet PO 50 mcg DAILY [facility]O Administration Divalproex Sodium 250 mg 12/09/20 21:00 12/11/20 08:09 Divalproex 250 Mg Tablet.Dr PO 250 mg BID [facility]O Administration Enoxaparin Sodium 40 mg 12/10/20 16:30 12/11/20 08:09 Enoxaparin 40 Mg/0.4 Ml Syringe SQ 40 mg DAILY FITO Administration Fluoxetine HCl 40 mg 12/10/20 09:00 12/11/20 08:09 Fluoxetine Hcl 20 Mg Cap PO 40 mg DAILY [facility]O Administration Sodium Chloride 1,000 mls @ 75 mls/hr 12/09/20 15:30 12/11/20 05:34 Saline 0.9% IV 75 mls/hr .[id number] [facility] Administration Lacosamide 50 mg 12/09/20 21:00 12/11/20 08:09 Lacosamide 50 Mg Tablet PO 50 mg BID FITO Administration Lacosamide 150 mg 12/09/20 21:00 12/11/20 08:10 Lacosamide 150 Mg Tablet PO 150 mg BID FITO Administration Levothyroxine Sodium 100 mcg 12/10/20 06:30 12/11/20 05:33 Levothyroxine 100 Mcg Tab PO 100 mcg DAILY@0630 [facility] Administration Lisinopril 2.5 mg 12/10/20 09:00 12/11/20 08:09 Lisinopril 2.5 Mg Tab PO 2.5 mg DAILY FITO Administration Metoprolol Succinate 25 mg 12/09/20 21:00 12/11/20 08:09 Metoprolol Succinate (Er) 25 Mg Tab.Er.24h PO 25 mg BID FITO Administration Naloxone HCl 0.2 mg 12/09/20 15:22 Naloxone 0.4 Mg/Ml 1 Ml Vial IV Q2M PRN Opioid Reversal Olanzapine 5 mg 12/09/20 21:00 12/11/20 08:09 Olanzapine 5 Mg Tab PO 5 mg BID FITO Administration Thiamine HCl 100 mg 12/09/20 17:30 12/11/20 08:09 Thiamine 100 Mg Tab PO 100 mg BID-W/MEALS FITO Administration Intake and Output 12/10/20 12/11/20 12/11/20 22:59 06:59 14:59 Intake Total 600 900 Output Total 850 Balance 600 50 Intake: Intake, IV Titration 600 900 Amount Sodium Chloride 0.9% 1, 600 900 000 ml @ 75 mls/hr IV . [id number] [facility] Rx#:[id number] Output: Urine 850 Other: Voiding Method Urinal # Voids 2 12/11/20 05:05 12/11/20 05:05
--- NOTE | 2020-12-11 13:30 | P.DS ---
Providers Date of admission: 12/09/20 15:38 Expected date of discharge: 12/11/20 Attending physician: Aries Ma Consults: 12/09/20 17:30 Consult Physician Routine Consulting Provider: Maxwell Hooks Consult Reason/Comments: Mental status changes Do you want consulting provider notified?: Yes Consult Physician Routine Consulting Provider: Juan Alberto Mac Consult Reason/Comments: Mental status changes Do you want consulting provider notified?: Yes Primary care physician: Aries Ma Hospital Course: Diagnoses on discharge: Mental status changes, cause is likely related to noncompliance with medications, patient did not get any of his new medication filled after discharge, also patient may be taking extra doses of baclofen Underlying history of seizure disorder, no evidence of new seizure activity at this time Previous history of stroke Underlying history of psychosis Underlying history of alcohol abuse Underlying history of gout Underlying history of hypertension Underlying history of hyperlipidemia Hospital course: Marco Antonio South, is a 50-year-old male who was admitted to [facility] emergency room due to mental status changes and confusion that was noticed by his family members. Patient was recently admitted with similar symptoms, he has multiple medical problems that can affect his mental clarity including seizure disorder, previous history of stroke, history of alcohol abuse, as well as history of psychosis. Patient was evaluated by neurology and psychiatry on the last admission, his medications were optimized, he was discharged home on 12/08/2020, however he returned to emergency room on 12/09/2020 with similar symptoms of confusion and mental status changes, apparently patient did not get his new prescriptions filled. There was no evidence of any new seizure activity at this point. On 12/10/2020 patient was seen and examined on the medical floor he is alert and slightly less confused today he denies any complaints however he is stating that he might have taken some extra baclofen pills at home, he stated that he did that because he was having some back pain and he denies any suicidal ideation or attempt. Neurology input review awaiting testing, awaiting input from psychiatry. Will follow in a.m.. On 12/11/2020 Patient was seen and examined on the medical floor, he is alert and oriented x 3 in no distress, he denies any complaints there is no fever or chills no headache or dizziness no chest pain no shortness of breath no palpitation no cough no nausea or vomiting no abdominal pain no diarrhea no blood in the stools no burning with urination no frequency or urgency and no hematuria, there is no weakness or numbness in any of the extremities no change in vision speech or gait. Patient is stable he was cleared for discharge by cardiology and neurology, he will be discharged home today, apparently after the previous discharge patient did not get his medication filled at the pharmacy, he was given a refill on Vimpat and Depakote, he was counseled in length in the regard to importance of taking medications regularly as prescribed, he was asked to come to our office on Sunday at 3:30 in the afternoon and to bring in all his pill bottles to assure he is on the right regimen. Patient Condition at Discharge: Stable Plan - Discharge Summary Discharge Rx Participant: Yes New Discharge Prescriptions: Continue allopurinoL [Zyloprim] 100 mg PO DAILY #30 tab Metoprolol Succinate [Toprol XL] 25 mg PO BID lisinopriL [Zestril] 2.5 mg PO DAILY Baclofen 10 mg PO BID PRN PRN Reason: MUSCLE SPASM Rosuvastatin Calcium [Crestor] 5 mg PO DAILY Thiamine [Vitamin B-1] 100 mg PO BID-W/MEALS 30 Days #30 tab Cholecalciferol [Vitamin D3 (25 Mcg = 1000 Iu)] 50 mcg PO DAILY FLUoxetine HCL [PROzac] 40 mg PO DAILY Levothyroxine Sodium [Synthroid] 100 mcg PO DAILY@0630 Benztropine Mesylate [Cogentin] 0.5 mg PO BID 30 Days #60 tab OLANZapine [ZyPREXA] 5 mg PO BID 30 Days #60 tab Lacosamide [Vimpat] 50 mg PO BID 30 Days #60 tablet Lacosamide [Vimpat] 150 mg PO BID Divalproex [Depakote] 250 mg PO BID 30 Days #60 tablet.dr Discharge Medication List allopurinoL [Zyloprim] 100 mg PO DAILY #30 tab 06/21/18 [Rx] Metoprolol Succinate [Toprol XL] 25 mg PO BID 12/24/19 [History] lisinopriL [Zestril] 2.5 mg PO DAILY 12/24/19 [History] Baclofen 10 mg PO BID PRN 08/30/20 [History] Rosuvastatin Calcium [Crestor] 5 mg PO DAILY 10/15/20 [History] Thiamine [Vitamin B-1] 100 mg PO BID-W/MEALS 30 Days #30 tab 10/20/20 [Rx] Cholecalciferol [Vitamin D3 (25 Mcg = 1000 Iu)] 50 mcg PO DAILY 12/05/20 [History] FLUoxetine HCL [PROzac] 40 mg PO DAILY 12/05/20 [History] Lacosamide [Vimpat] 150 mg PO BID 12/05/20 [History] Levothyroxine Sodium [Synthroid] 100 mcg PO DAILY@0630 12/05/20 [History] Benztropine Mesylate [Cogentin] 0.5 mg PO BID 30 Days #60 tab 12/08/20 [Rx] Divalproex [Depakote] 250 mg PO BID 30 Days #60 tablet.dr 12/08/20 [Rx] Lacosamide [Vimpat] 50 mg PO BID 30 Days #60 tablet 12/08/20 [Rx] OLANZapine [ZyPREXA] 5 mg PO BID 30 Days #60 tab 12/08/20 [Rx] Follow up Appointment(s)/Referral(s): Aidan Fischer MD [STAFF PHYSICIAN] - 1 Week (Follow up to have loop recorder checked, MRI done on 12/11) Aries Ma MD [Primary Care Provider] - 12/13/20 3:30 pm (Bring all pill bottles with you to your appointment.) Patient Instructions/Handouts: Seizure/Epilepsy Discharge Instructions & Follow-Up Activity/Diet/Wound Care/Special Instructions: Neurologist will contact you with follow up appt.
[2020-12-11 14:17] VITALS: BP 122/81; PULSE 62; RESP 18; TEMP 97.5
== END 2020-12-11 15:00 | disposition home or self-care (01) ==
LOC: EC 10:17 → 5NMEDONC 15:38
PROVIDERS: ADMIT Internal Medicine; ATTEND Internal Medicine
DX: G92 Toxic encephalopathy (principal); T48.1X5A Adverse effect of skeletal muscle relaxants [neuromuscular blocking agents], initial encounter; F10.10 Alcohol abuse, uncomplicated; Z91.14 Patient's other noncompliance with medication regimen; Z20.822 Contact with and (suspected) exposure to COVID-19; G40.909 Epilepsy, unspecified, not intractable, without status epilepticus; G31.84 Mild cognitive impairment of uncertain or unknown etiology; I10 Essential (primary) hypertension; E78.5 Hyperlipidemia, unspecified; R29.6 Repeated falls; I42.9 Cardiomyopathy, unspecified; M10.9 Gout, unspecified; E03.9 Hypothyroidism, unspecified; M54.9 Dorsalgia, unspecified; F32.9 Major depressive disorder, single episode, unspecified; F41.9 Anxiety disorder, unspecified; Z79.899 Other long term (current) drug therapy; Z79.890 Hormone replacement therapy; Z88.2 Allergy status to sulfonamides; Z88.0 Allergy status to penicillin; Z98.890 Other specified postprocedural states; Z86.73 Personal history of transient ischemic attack (TIA), and cerebral infarction without residual deficits; Z82.69 Family history of other diseases of the musculoskeletal system and connective tissue; Z83.6 Family history of other diseases of the respiratory system
CPT/HCPCS: 96376; 96374; 96361; 99285; 36415; 95819; 80053 ×2; 82550; 84484; 85025 ×2; 85610; 85730; 81003; 80306; 87635; 71046; 70553; G0378 ×3; G0480; J1650 ×2; A9585; 80320; 93005

== ENCOUNTER → 2020-12-16 | Outpatient (CLI) | payer OTHER | END | disposition home or self-care (01) | CPT/HCPCS: 95816 ==

== ENCOUNTER 2021-07-08 17:54 | Emergency (ER) | payer OTHER ==
[2021-07-08 18:16] VITALS: PULSE 87; RESP 20; TEMP 97.8
[2021-07-08] MEDS ORDERED: DIPH,PERTUS(ACELL)TETVAC-LF 0.5 ML VIAL IM ONE (18:45)
[2021-07-08] MEDS ORDERED: HYDROcodone/APAP 5-325MG 1 EACH TAB PO STA (18:45)
--- NOTE | 2021-07-08 19:23 | CT ---
EXAMINATION TYPE: CT brain cspine wo con DATE OF EXAM: 07/08/2021 COMPARISON: 12/05/2020 HISTORY: fall CT DLP: combined DLP 1052.7 mGycm Automated exposure control for dose reduction was used. Images of the brain and cervical spine obtained without contrast. Ventricles have normal size. There is no mass effect or midline shift. There is no sign of intracrani al hemorrhage. There is mild thalamic calcification. There is 2 x 1 cm area of hypodensity anterior r ight internal capsule consistent with old lacunar infarct. The calvarium is intact. There is normal aeration of the mastoid sinuses. The cervical vertebra have fairly normal spacing and alignment. Posterior elements are intact. There is no compression fracture. Facet joints are intact. Prevertebral soft tissues are intact. IMPRESSION: Negative CT scan of the cervical spine. Old right anterior internal capsule lacunar infarct. No acute intracranial abnormality. Old small lac unar infarct in the right posterior parietal lobe white matter. No change compared to old exam.
--- NOTE | 2021-07-08 19:29 | CT ---
EXAMINATION TYPE: CT facial bones wo con DATE OF EXAM: 07/08/2021 COMPARISON: 04/04/2016 HISTORY: fall CT DLP: combined DLP 1052.7 mGycm Automated exposure control for dose reduction was used. Images obtained from the bottom of the mandible to the top of the frontal sinuses without contrast. There is oblique fracture through the left mandibular condyle. There is dislocation of the articular surface of the mandibular condyle out of the joint. The zygomatic arches appear normal. The maxilla i s intact. There is some soft tissue swelling around the nasal bone. There is no evidence of retro-orb ital mass. There is no evidence of a blowout fracture. Maxillary sinuses are relatively small. The or bital margins are intact. The globes are symmetric. IMPRESSION: Acute oblique fracture of the left mandibular condyle with dislocation of the temporomandibular joint . There is approximate 1.8 cm of overlap of the fragments. Normal paranasal sinuses. No evidence of orbital fracture. Nasal soft tissue swelling.
[2021-07-08] MEDS ORDERED: LIDOCAINE 1% INJ 10MG/ML (20 ML MDV) SQ ONE (20:10)
[2021-07-08] MEDS ORDERED: SODIUM CHLORIDE 0.9% 1,000 ML IV ONE (20:32)
--- NOTE | 2021-07-08 20:48 | ED ---
Fall HPI - General Chief Complaint: Fall Stated Complaint: Fall/face injury Time Seen by Provider: 07/08/21 18:21 Source: patient Mode of arrival: ambulatory - History of Present Illness Initial Comments: Patient states that he had a trip and fall. He landed on his face. He has pain in the face. He has multiple abrasions. He might have lost consciousness. He has no neck pain. He has no chest or belly or back pain. He has no nausea or vomiting. He has no focal weakness. He has no injuries to the arms or legs. He has no belly pain. He has no back pain. - Related Data Home Medications Medication Instructions Recorded Confirmed Metoprolol Succinate [Toprol XL] 25 mg PO BID 12/24/19 07/08/21 lisinopriL [Zestril] 2.5 mg PO DAILY 12/24/19 07/08/21 Rosuvastatin Calcium [Crestor] 5 mg PO DAILY 10/15/20 07/08/21 Cholecalciferol [Vitamin D3 (25 25 mcg PO BID 12/05/20 07/08/21 Mcg = 1000 Iu)] FLUoxetine HCL [PROzac] 40 mg PO DAILY 12/05/20 07/08/21 Levothyroxine Sodium [Synthroid] 100 mcg PO DAILY@0630 12/05/20 07/08/21 Lacosamide [Vimpat] 200 mg PO BID 12/11/20 07/08/21 ALPRAZolam [Xanax] 0.25 mg PO DAILY PRN 07/08/21 07/08/21 Meclizine [Antivert] 12.5 mg PO TID 07/08/21 07/08/21 OLANZapine 10 mg PO TID 07/08/21 07/08/21 Triamcinolone 0.1% Cream [Kenalog 1 applicatio TOPICAL BID 07/08/21 07/08/21 0.1% Cream] Previous Rx's Medication Instructions Recorded allopurinoL [Zyloprim] 100 mg PO DAILY #30 tab 06/21/18 Allergies Allergy/AdvReac Type Severity Reaction Status Date / Time amoxicillin Allergy Rash/Hives Verified 07/08/21 18:50 Sulfa (Sulfonamide Allergy Rash/Hives Verified 07/08/21 18:50 Antibiotics) Review of Systems ROS Statement: Those systems with pertinent positive or pertinent negative responses have been documented in the HPI. ROS Other: All systems not noted in ROS Statement are negative. Past Medical History Past Medical History: Chest Pain / Angina, CVA/TIA, Hyperlipidemia, Hypert ension, Seizure Disorder, Supraventricular Tachycardia (SVT), Syncope, Thyroid Disorder Additional Past Medical History / Comment(s): Pt states he had a small stroke in the past but no deficits, SVT with ablation, atach, acute encephalopathies/altered mental status associated with alcohol consumption, ETOH, hypothyroid, diverticular disease, chronic low back pain/spasms, last seizure possibly . History of Any Multi-Drug Resistant Organisms: None Reported Past Surgical History: Cardiac Ablation, Heart Catheterization Additional Past Surgical History / Comment(s): Cardiac ablation for SVT, tilt table test, stress test 2017, heart cath 2017, colonoscopy.. Past Anesthesia/Blood Transfusion Reactions: No Reported Reaction Additional Past Anesthesia/Blood Transfusion Reaction / Comment(s): Pt has never had transfusion. Past Psychological History: No Psychological Hx Reported, Anxiety, Depression, Panic Disorder Smoking Status: Never smoker Past Alcohol Use History: Daily Past Drug Use History: None Reported - Past Family History Mother History Unknown: Yes Family Medical History: Musculoskeletal Disorder, Neurologic Disorder Additional Family Medical History / Comment(s): MS. Mother is living. Father History Unknown: Yes Additional Family Medical History / Comment(s): BREATHING PROBLEMS-never goes to the doctor. Father is living. General Exam Limitations: no limitations General appearance: alert, in no apparent distress Head exam: Present: normocephalic, normal inspection Eye exam: Present: normal appearance, PERRL, EOMI. Absent: scleral icterus, conjunctival injection, periorbital swelling ENT exam: Present: normal exam, mucous membranes moist Neck exam: Present: normal inspection. Absent: tenderness, meningismus, lymphadenopathy Respiratory exam: Present: normal lung sounds bilaterally. Absent: respiratory distress, wheezes, rales, rhonchi, stridor Cardiovascular Exam: Present: regular rate, normal rhythm, normal heart sounds. Absent: systolic murmur, diastolic murmur, rubs, gallop, clicks GI/Abdominal exam: Present: soft, normal bowel sounds. Absent: distended, tenderness, guarding, rebound, rigid Extremities exam: Present: normal inspection, full ROM, normal capillary refill. Absent: tenderness, pedal edema, joint swelling, calf tenderness Back exam: Present: normal inspection Neurological exam: Present: alert, oriented X3, CN II-XII intact Psychiatric exam: Present: normal affect, normal mood Skin exam: Present: abrasion (Laceration on the chin), other. Absent: rash Course Vital Signs 07/08/21 18:11 Temperature 97.8 F Pulse Rate 87 Respiratory 20 Rate Blood Pressure 130/90 O2 Sat by Pulse 96 Oximetry Procedures - Laceration Laceration #1 Consent Obtained: verbal consent Indication: laceration Site: face Size (cm): 5 Description: linear Depth: simple, single layer Anesthetic Used: lidocaine 1% Anesthesia Technique: local infiltration Pre-repair: wound explored, irrigated extensively Type of Sutures: nylon Size of Sutures: 5-0 Technique: simple, interrupted Patient Tolerated Procedure: well, no complications Medical Decision Making - Medical Decision Making Patient presents after falling on his face. He has a laceration that her.. I updated his tetanus immunization. Patient has a complex mandibular fracture. He will likely require open operative repair. Oral surgery at this hospital was not able to fix this fracture. Therefore patient will be transferred to outside facility. I did speak with an emergency attending at another hospital who accepted the patient for transfer. Disposition Clinical Impression: Mandible fracture Disposition: OTHER INSTITUTION NOT DEFINED Referrals: Aries Ma MD [Primary Care Provider] - 1-2 days - Out of Hospital Transfer - Req. Specs Out of Hospital Transfer - Requested Specifics: Other Emergency Center ([facility]
[2021-07-08] MEDS ORDERED: MORPHINE SULFATE 4 MG/ML SYRINGE IV STA (20:57)
[2021-07-08 21:00] LABS: Basophils % (A) 1 %; Eosinophils # (A) 0.1 k/uL (0-0.7); Eosinophils % (A) 1 %; HCT 42.7 % (39.0-53.0); HGB 14.1 gm/dL (13.0-17.5); Lymphocytes % (A) 11 %; MCH 31.7 pg (25.0-35.0); MCHC 33.1 g/dL (31.0-37.0); MCV 95.7 fL (80.0-100.0); Mean Platelet Volume 7.1; Monocytes # (A) 0.4 k/uL (0-1.0); Monocytes % (A) 5 %; Neutrophils # (A) 7.1 k/uL (1.3-7.7); Neutrophils % (A) 82 %; Platelet Count 222 k/uL (150-450); RBC 4.46 m/uL (4.30-5.90); RDW 14.5 % (11.5-15.5); WBC 8.7 k/uL (3.8-10.6)
[2021-07-08 21:02] VITALS: BP 146/102
[2021-07-08 21:08] LABS: INR 0.9 (<1.2); Partial Thromboplastin Time 25.4 sec (22.0-30.0); Prothrombin Time 10.2 sec (9.0-12.0)
[2021-07-08 21:21] LABS: ALT 23 U/L (4-49); AST 39 U/L (17-59); African American GFR (CKD) >90 (>60 ml/min/1.73 sqM); Albumin 4.8 g/dL (3.5-5.0); Alkaline Phosphatase 102 U/L (38-126); Anion Gap 11 mmol/L; Blood Urea Nitrogen 16 mg/dL (9-20); Calcium 9.5 mg/dL (8.4-10.2); Carbon Dioxide 24 mmol/L (22-30); Chloride 107 mmol/L (98-107); Glucose 116 mg/dL (74-99); Non-African American GFR(CKD) >90 (>60 ml/min/1.73 sqM); Potassium 4.3 mmol/L (3.5-5.1); Sodium 142 mmol/L (137-145); Total Bilirubin 0.8 mg/dL (0.2-1.3); Total Protein 8.2 g/dL (6.3-8.2)
== END 2021-07-08 21:27 | disposition other institution (70) ==
LOC: EC 17:54
DX: S02.609A Fracture of mandible, unspecified, initial encounter for closed fracture (principal); I10 Essential (primary) hypertension; Z23 Encounter for immunization; Z88.0 Allergy status to penicillin; Z88.2 Allergy status to sulfonamides; Z86.73 Personal history of transient ischemic attack (TIA), and cerebral infarction without residual deficits; W01.0XXA Fall on same level from slipping, tripping and stumbling without subsequent striking against object, initial encounter
CPT/HCPCS: 96372; 96365; 90471; 12013 ×2; 99284 ×2; 36415; 80053; 85025; 85610; 85730; 87040; 72125; 70486; 70450; 90715; 96375; 96374; J2270; J2001; J0696

== ENCOUNTER 2021-08-23 20:58 | Inpatient (IN) | payer OTHER ==
--- NOTE | 2021-08-23 21:37 | ED ---
General Adult HPI - General Chief complaint: Neuro Symptoms/Deficit Stated complaint: confusion Time Seen by Provider: 08/23/21 21:09 Source: patient, family Mode of arrival: wheelchair Limitations: altered mental status - History of Present Illness Initial comments: Dictation was produced using [employer] dictation software. please excuse any grammatical, word or spelling errors. Chief Complaint: 51-year-old male with seizure and depression multiple medications presents to the emergency room for altered mental status History of Present Illness: Is 51-year-old male is accompanied by sister. Patient was brought to the emergency department for altered mental status. Patient unable to fight history of present illness at this time. History of present illness obtained exclusively from patient sister. She states that he has had for 5 episodes similar to this in the past. Been admitted for this most recently last year. States that spent having symptoms like this since this morning. Sister reports that patient is on multiple psychiatric medications and antiseizure medications. He has these episodes where he would be tremulous and rigid and become flaccid intermittently several times throughout the day. Patient is also confused. Patient is typically very high functioning lives with his parents. Family and sister waited most of the day and see if his symptoms improved however given that patient seems like a fall risk that she brought to the emergency department. Patient has similar episode in June were he became twitchy and fell and fractured his mandible. Chin ended up being transferred to an outside facility. Unable to obtain ROS secondary to mental status. PHYSICAL EXAM: General Impression: Alert and oriented x2/4, not in acute distress HEENT: Normocephalic atraumatic, extra-ocular movements intact, pupils equal and reactive to light bilaterally, mucous membranes moist. Cardiovascular: Heart regular rate and rhythm Chest: Able to complete full sentences, no retractions, no tachypnea Abdomen: abdomen soft, non-tender, non-distended, no organomegaly Musculoskeletal: Pulses present and equal in all extremities, no peripheral edema Motor: Moves all extremities equally. He has these episodes were he is tremulous. When asked to hold his arm up or any of his extremity ulcerative briefly and it drops straight to the floor. Seems to be symmetrical. Does not have any facial asymmetry. Mild cogwheel rigidity Neurological: CN II-XII grossly intact,sensory deficits noted Skin: Intact with no visualized rashes ED course: 51-year-old male presents to the emergency department for altered m ental status and abnormal movement. Sister at the bedside reports that patient's had similar episodes like this in the past according to her there is no apparent reason for patient behaving this way. Chart review was performed. Patient is evaluated last year for similar issue. Is diagnosed with toxic encephalopathy. Patient wasn't has extensive history of alcohol abuse. He does have a history of stroke over the right basal ganglia over the anterior limb. EKG interpretation: Ventricular rate 71, sinus rhythm, VA interval 160, QS 102, QTc 408. No VA prolongation, no QTC prolongation, no ST or T-wave changes noted. EKG compared to 12/09/2020 showing no changes. Overall, this EKG is un remarkable Computed tomography scan of brain shows no acute processes. Laboratory eval uation obtained shows no acute abnormalities. CBC is unremarkable. Metabolic panel shows no acidosis. Normal renal markers. Mild hypomagnesemia 1.3. Patient given IV magnesium. Toxicology labs are negative. Patient reevaluated at bedside at 10:40 PM after being given 2 mg of IV Ativan with similar condition. Patient is encephalopathic. There is no obvious source. Spoke with Drs. sharp was familiar with patient. Dr. Ma is agreeable with admission under his service. Neurology and psychiatry will be consulted again. - Related Data Home Medications Medication Instructions Recorded Confirmed Metoprolol Succinate [Toprol XL] 25 mg PO BID 12/24/19 07/08/21 lisinopriL [Zestril] 2.5 mg PO DAILY 12/24/19 07/08/21 Rosuvastatin Calcium [Crestor] 5 mg PO DAILY 10/15/20 07/08/21 Cholecalciferol [Vitamin D3 (25 25 mcg PO BID 12/05/20 07/08/21 Mcg = 1000 Iu)] FLUoxetine HCL [PROzac] 40 mg PO DAILY 12/05/20 07/08/21 Levothyroxine Sodium [Synthroid] 100 mcg PO DAILY@0630 12/05/20 07/08/21 Lacosamide [Vimpat] 200 mg PO BID 12/11/20 07/08/21 ALPRAZolam [Xanax] 0.25 mg PO DAILY PRN 07/08/21 07/08/21 Meclizine [Antivert] 12.5 mg PO TID 07/08/21 07/08/21 OLANZapine 10 mg PO TID 07/08/21 07/08/21 Triamcinolone 0.1% Cream [Kenalog 1 applicatio TOPICAL BID 07/08/21 07/08/21 0.1% Cream] Previous Rx's Medication Instructions Recorded allopurinoL [Zyloprim] 100 mg PO DAILY #30 tab 06/21/18 Allergies Allergy/AdvReac Type Severity Reaction Status Date / Time amoxicillin Allergy Rash/Hives Verified 08/23/21 21:08 Sulfa (Sulfonamide Allergy Rash/Hives Verified 08/23/21 21:08 Antibiotics) Review of Systems ROS Statement: Those systems with pertinent positive or pertinent negative responses have been documented in the HPI. ROS Other: All systems not noted in ROS Statement are negative. Past Medical History Past Medical History: Chest Pain / Angina, CVA/TIA, Hyperlipidemia, Hypertension, Seizure Disorder, Supraventricular Tachycardia (SVT), Syncope, Thyroid Disorder Additional Past Medical History / Comment(s): Pt states he had a small stroke in the past but no deficits, SVT with ablation, atach, acute en cephalopathies/altered mental status associated with alcohol consumption, ETOH, hypothyroid, diverticular disease, chronic low back pain/spasms, last seizure possibly . History of Any Multi-Drug Resistant Organisms: None Reported Past Surgical History: Cardiac Ablation, Heart Catheterization Additional Past Surgical History / Comment(s): Cardiac ablation for SVT, tilt table test, stress test 2017, heart cath 2017, colonoscopy.. Past Anesthesia/Blood Transfusion Reactions: No Reported Reaction Additional Past Anesthesia/Blood Transfusion Reaction / Comment(s): Pt has never had transfusion. Past Psychological History: No Psychological Hx Reported, Anxiety, Depression, Panic Disorder Smoking Status: Never smoker Past Alcohol Use History: Daily Past Drug Use History: None Reported - Past Family History Mother History Unknown: Yes Family Medical History: Musculoskeletal Disorder, Neurologic Disorder Additional Family Medical History / Comment(s): MS. Mother is living. Father History Unknown: Yes Additional Family Medical History / Comment(s): BREATHING PROBLEMS-never goes to the doctor. Father is living. General Exam Limitations: altered mental status Course Vital Signs 08/23/21 21:05 Temperature 99.1 F Pulse Rate 70 Respiratory 18 Rate Blood Pressure 154/90 O2 Sat by Pulse 99 Oximetry Medical Decision Making - Lab Data Result diagrams: 08/23/21 21:23 08/23/21 21:23 Lab Results 08/23/21 08/23/21 08/23/21 Range/Units 21:23 21:23 21:23 WBC 11.1 H (3.8-10.6) k/uL RBC 4.54 (4.30-5.90) m/uL Hgb 14.8 (13.0-17.5) gm/dL Hct 43.9 (39.0-53.0) % MCV 96.8 (80.0-100.0) fL MCH 32.6 (25.0-35.0) pg MCHC 33.7 (31.0-37.0) g/dL RDW 13.9 (11.5-15.5) % Plt Count 166 (150-450) k/uL MPV 7.4 Neutrophils % 79 % Lymphocytes % 12 % Monocytes % 6 % Eosinophils % 2 % Basophils % 0 % Neutrophils # 8.8 H (1.3-7.7) k/uL Lymphocytes # 1.3 (1.0-4.8) k/uL Monocytes # 0.7 (0-1.0) k/uL Eosinophils # 0.2 (0-0.7) k/uL Basophils # 0.0 (0-0.2) k/uL Sodium 139 (137-145) mmol/L Potassium 4.1 (3.5-5.1) mmol/L Chloride 107 (98-107) mmol/L Carbon Dioxide 22 (22-30) mmol/L Anion Gap 10 mmol/L BUN 7 L (9-20) mg/dL Creatinine 0.69 (0.66-1.25) mg/dL Est GFR (CKD-EPI)AfAm >90 (>60 ml/min/1.73 sqM) Est GFR (CKD-EPI)NonAf >90 (>60 ml/min/1.73 sqM) Glucose 127 H (74-99) mg/dL Osmolality 289 (280-301) mosm/kg Plasma Lactic Acid Tone 2.0 (0.7-2.0) mmol/L Calcium 9.0 (8.4-10.2) mg/dL Magnesium 1.3 L (1.6-2.3) mg/dL Total Bilirubin 0.9 (0.2-1.3) mg/dL AST 40 (17-59) U/L ALT 23 (4-49) U/L Alkaline Phosphatase 91 (38-126) U/L Ammonia 21 (<30) umol/L Total Protein 7.7 (6.3-8.2) g/dL Albumin 4.5 (3.5-5.0) g/dL Salicylates <1.0 mg/dL Acetaminophen <10.0 ug/mL Serum Alcohol <10 mg/dL Disposition Clinical Impression: Altered mental status Disposition: ADMITTED IP TO THIS HOSP Condition: Serious Referrals: Aries Ma MD [Primary Care Provider] - 1-2 days
[2021-08-23] MEDS ORDERED: LORazepam 2 MG/ML INJ IV STA (21:38)
[2021-08-23 21:49] LABS: Basophils % (A) 0 %; Eosinophils # (A) 0.2 k/uL (0-0.7); Eosinophils % (A) 2 %; HCT 43.9 % (39.0-53.0); HGB 14.8 gm/dL (13.0-17.5); Lymphocytes # (A) 1.3 k/uL (1.0-4.8); Lymphocytes % (A) 12 %; MCH 32.6 pg (25.0-35.0); MCHC 33.7 g/dL (31.0-37.0); MCV 96.8 fL (80.0-100.0); Mean Platelet Volume 7.4; Monocytes # (A) 0.7 k/uL (0-1.0); Monocytes % (A) 6 %; Neutrophils # (A) 8.8 k/uL (1.3-7.7); Neutrophils % (A) 79 %; Platelet Count 166 k/uL (150-450); RBC 4.54 m/uL (4.30-5.90); RDW 13.9 % (11.5-15.5); WBC 11.1 k/uL (3.8-10.6)
--- NOTE | 2021-08-23 22:00 | CT ---
EXAM: CT brain wo con CLINICAL HISTORY: Syncope. COMPARISON: 07/08/2021 TECHNIQUE: Contiguous axial noncontrast images of the brain were obtained. Coronal and sagittal refor mats were generated and reviewed. Automated dose control was used for this exam. FINDINGS: There is no evidence for intracranial hemorrhage, mass effect or midline shift. Benign basal ganglia calcifications again seen. Otherwise white matter is grossly preserved. Ventricular size and configuration is within normal limits for degree of parenchymal volume. The paranasal sinuses are clear. The mastoid air cells are clear. No evidence for calvarial fracture. IMPRESSION: No acute intracranial abnormality.
[2021-08-23 22:01] LABS: ALT 23 U/L (4-49); AST 40 U/L (17-59); Acetaminophen <10.0 ug/mL; African American GFR (CKD) >90 (>60 ml/min/1.73 sqM); Albumin 4.5 g/dL (3.5-5.0); Alcohol <10 mg/dL; Alkaline Phosphatase 91 U/L (38-126); Anion Gap 10 mmol/L; Blood Urea Nitrogen 7 mg/dL (9-20); Carbon Dioxide 22 mmol/L (22-30); Chloride 107 mmol/L (98-107); Glucose 127 mg/dL (74-99); Magnesium 1.3 mg/dL (1.6-2.3); Non-African American GFR(CKD) >90 (>60 ml/min/1.73 sqM); Potassium 4.1 mmol/L (3.5-5.1); Salicylate <1.0 mg/dL; Sodium 139 mmol/L (137-145); Total Bilirubin 0.9 mg/dL (0.2-1.3); Total Protein 7.7 g/dL (6.3-8.2)
[2021-08-23] MEDS ORDERED: NALOXONE 0.4 MG/ML 1 ML VIAL IV PRN (22:37)
[2021-08-23] MEDS ORDERED: SODIUM CHLORIDE 0.9% 1,000 ML IV SCH (22:45)
[2021-08-23] MEDS: MAGNESIUM SULFATE-D5W PMX 1 GM in DEXTROSE/WATER 1 100ML.BAG IVPB SCH (23:31)
[2021-08-23 23:56] LABS: Appearance,Urine Clear (Clear); Bilirubin,Urine Negative (Negative); Blood,Urine Negative (Negative); Color,Urine Yellow; Glucose,Urine (UA) Negative (Negative); Ketones,Urine Negative (Negative); Leukocyte Esterase,Urine Negative (Negative); Nitrite,Urine Negative (Negative); PH, Urine 5.5 (5.0-8.0); Protein,Urine Negative (Negative); Specific Gravity,Urine 1.013 (1.001-1.035); Urobilinogen,Urine <2.0 mg/dL (<2.0)
[2021-08-24 00:14] LABS: Amphetamine Screen,Urine Not Detected (NotDetected); Barbiturate Screen,Urine Not Detected (NotDetected); Benzodiazepines Screen,Urine Detected (NotDetected); Cocaine Screen,Urine Not Detected (NotDetected); Methadone Screen, Urine Not Detected (NotDetected); Opiate Screen,Urine Not Detected (NotDetected); Oxycodone Screen, Urine Not Detected (NotDetected); Phencyclidine Screen,Urine Not Detected (NotDetected); Tricyclic Antidepressant,Urine Not Detected (NotDetected); Urn Cannabinoid Scrn Not Detected (NotDetected)
[2021-08-24] MEDS: MAGNESIUM SULFATE-D5W PMX 1 GM in DEXTROSE/WATER 1 100ML.BAG IVPB SCH (01:03)
[2021-08-24] MEDS ORDERED: BACLOFEN 10 MG TAB PO PRN (01:56)
[2021-08-24] MEDS: OLANZapine 10 MG TAB PO SCH ×4 (02:46→22:03)
[2021-08-24] MEDS: METOPROLOL SUCCINATE (ER) 25 MG TAB.ER.24H PO SCH ×3 (02:46→21:02)
[2021-08-24] MEDS: ALPRAZolam 0.25 MG TAB PO PRN (03:26)
[2021-08-24] MEDS: LEVOTHYROXINE 112 MCG TAB PO SCH (05:55)
[2021-08-24] MEDS: MECLIZINE 12.5 MG TAB PO SCH ×3 (07:35→22:03)
[2021-08-24] MEDS: allopurinoL 100 MG TAB PO SCH (07:35)
[2021-08-24] MEDS: CHOLECALCIFEROL 25 MCG (1000 IU) TABLET PO SCH (07:35)
[2021-08-24] MEDS: ATORVASTATIN 10 MG TAB PO SCH (07:35)
[2021-08-24 08:56] LABS: Basophils % (A) 1 %; Eosinophils # (A) 0.2 k/uL (0-0.7); Eosinophils % (A) 2 %; HCT 39.6 % (39.0-53.0); HGB 13.2 gm/dL (13.0-17.5); Lymphocytes # (A) 1.4 k/uL (1.0-4.8); Lymphocytes % (A) 17 %; MCH 32.5 pg (25.0-35.0); MCHC 33.3 g/dL (31.0-37.0); MCV 97.7 fL (80.0-100.0); Mean Platelet Volume 7.3; Monocytes # (A) 0.5 k/uL (0-1.0); Monocytes % (A) 6 %; Neutrophils # (A) 6.5 k/uL (1.3-7.7); Neutrophils % (A) 74 %; Platelet Count 147 k/uL (150-450); RBC 4.05 m/uL (4.30-5.90); RDW 13.9 % (11.5-15.5); WBC 8.7 k/uL (3.8-10.6)
[2021-08-24] MEDS ORDERED: TRIAMCINOLONE 0.1% CREAM 80 GM TUBE TOPICAL PRN (09:00)
[2021-08-24] MEDS ORDERED: FLUoxetine HCL 20 MG CAP PO SCH (09:00)
[2021-08-24] MEDS: LACOSAMIDE 50 MG TABLET PO SCH ×2 (09:38→20:30)
[2021-08-24] MEDS: LACOSAMIDE 150 MG TABLET PO SCH ×2 (09:38→20:30)
[2021-08-24 09:40] LABS: ALT 20 U/L (4-49); AST 30 U/L (17-59); African American GFR (CKD) >90 (>60 ml/min/1.73 sqM); Albumin 3.8 g/dL (3.5-5.0); Albumin/Globulin Ratio 1.3; Alkaline Phosphatase 83 U/L (38-126); Anion Gap 9 mmol/L; Blood Urea Nitrogen 5 mg/dL (9-20); Calcium 8.4 mg/dL (8.4-10.2); Carbon Dioxide 26 mmol/L (22-30); Chloride 105 mmol/L (98-107); Globulin 2.9 g/dL; Glucose 101 mg/dL (74-99); Non-African American GFR(CKD) >90 (>60 ml/min/1.73 sqM); Potassium 3.4 mmol/L (3.5-5.1); Sodium 140 mmol/L (137-145); Total Bilirubin 0.8 mg/dL (0.2-1.3); Total Protein 6.7 g/dL (6.3-8.2)
--- NOTE | 2021-08-24 09:43 | P.HPIM ---
History of Present Illness H&P Date: 08/24/21 Chief Complaint: Mental status This is a 51-year-old male patient who presented to the ER with concerns of increased confusion. According to ER report patient was brought in by his sister. Patient himself is a poor historian and is confused at this time. According to ER records. Patient started showing symptoms since yesterday morning. Patient has had multiple hospital admissions for similar episodes in the past. Patient does have a past medical history of seizures, CVA, hyperlipidemia, hypertension, SVT, thyroid disorder, cardiac ablation, EtOH, anxiety depression panic disorder. Head CT was completed in ER showing no acute intracranial abnormality. Patient is confused but does state he has been taking his medication. Serum alcohol less than 10. Lab work unremarkable. Current vitals temp 98.2, pulse rate 74, respiratory rate 17, blood pressure 124/79 pulse ox of 98% on room air. Home medications have been resumed. Neurology and psychiatry services have been consulted. Repeat labs ordered Review of Systems Please refer to HPI otherwise unremarkable Past Medical History Past Medical History: Chest Pain / Angina, CVA/TIA, Hyperlipidemia, Hypertension, Seizure Disorder, Supraventricular Tachycardia (SVT), Syncope, Thyroid Disorder Additional Past Medical History / Comment(s): Pt states he had a small stroke in the past but no deficits, SVT with ablation, atach, acute encephalopathies/altered mental status associated with alcohol consumption, ETOH, hypothyroid, diverticular disease, chronic low back pain/spasms, last seizure possibly . History of Any Multi-Drug Resistant Organisms: None Reported Past Surgical History: Cardiac Ablation, Heart Catheterization Additional Past Surgical History / Comment(s): Cardiac ablation for SVT, tilt table test, stress test 2017, heart cath 2017, colonoscopy.. Past Anesthesia/Blood Transfusion Reactions: No Reported Reaction Additional Past Anesthesia/Blood Transfusion Reaction / Comment(s): Pt has never had transfusion. Past Psychological History: No Psychological Hx Reported, Anxiety, Depression, Panic Disorder Additional Psychological History / Comment(s): Pt recently admitted for psychosis. Pt lives with his parents. He no longer drives, his dad takes him to appts. He is otherwise, independent. Smoking Status: Never smoker Past Alcohol Use History: Daily Additional Past Alcohol Use History / Comment(s): States he drinks maybe 3-4 be ers every other day. States his last drink was 4 days ago. Past Drug Use History: None Reported Additional Drug Use History / Comment(s): Past PDA abuse but none for years. - Past Family History Mother History Unknown: Yes Family Medical History: Musculoskeletal Disorder, Neurologic Disorder Additional Family Medical History / Comment(s): MS. Mother is living. Father History Unknown: Yes Additional Family Medical History / Comment(s): BREATHING PROBLEMS-never goes to the doctor. Father is living. Medications and Allergies Home Medications Medication Instructions Recorded Confirmed Type allopurinoL [Zyloprim] 100 mg PO DAILY #30 tab 06/21/18 08/23/21 Rx Metoprolol Succinate [Toprol XL] 25 mg PO BID 12/24/19 08/23/21 History lisinopriL [Zestril] 2.5 mg PO DAILY 12/24/19 08/23/21 History Rosuvastatin Calcium [Crestor] 5 mg PO DAILY 10/15/20 08/23/21 History Cholecalciferol [Vitamin D3 (25 50 mcg PO DAILY 12/05/20 08/23/21 History Mcg = 1000 Iu)] FLUoxetine HCL [PROzac] 40 mg PO DAILY 12/05/20 08/23/21 History Lacosamide [Vimpat] 200 mg PO BID@1000,1900 12/11/20 08/23/21 History ALPRAZolam [Xanax] 0.25 mg PO HS PRN 07/08/21 08/23/21 History Meclizine [Antivert] 12.5 mg PO TID 07/08/21 08/23/21 History OLANZapine 10 mg PO TID 07/08/21 08/23/21 History Triamcinolone 0.1% Cream [Kenalog 1 applicatio TOPICAL BID PRN 07/08/21 08/23/21 History 0.1% Cream] Baclofen [Lioresal] 10 mg PO BID PRN 08/23/21 08/23/21 History Levothyroxine Sodium [Synthroid] 112 mcg PO DAILY 08/23/21 08/23/21 History Allergies Allergy/AdvReac Type Severity Reaction Status Date / Time amoxicillin Allergy Rash/Hives Verified 08/23/21 22:56 Sulfa (Sulfonamide Allergy Rash/Hives Verified 08/23/21 22:56 Antibiotics) Physical Exam Vitals: Vital Signs Temp Pulse Pulse Resp BP BP Pulse Ox 08/24/21 08:00 98.2 F 74 17 124/79 98 08/24/21 02:00 98.1 F 76 17 117/75 96 08/23/21 23:41 98.5 F 79 18 127/77 98 08/23/21 21:05 99.1 F 70 18 154/90 99 Intake and Output 08/23/21 08/24/21 08/24/21 22:59 06:59 14:59 Other: # Voids 2 Weight 54.431 kg 54.431 kg Head normocephalic Neck supple Lungs clear to auscultation bilaterally no wheezing or crackles Heart regular rate and rhythm S1-S2, no rub or gallop Abdomen is soft nontender nondistended positive bowel sounds no hepatosplenomegaly Extremities no edema Neuro alert and orientated to2. Intermittent episodes of confusion Results CBC & Chem 7: 08/24/21 07:31 08/23/21 21:23 Labs: Abnormal Lab Results - Last 24 Hours (Table) 08/23/21 08/23/21 08/23/21 Range/Units 21:23 21:23 23:16 WBC 11.1 H (3.8-10.6) k/uL RBC (4.30-5.90) m/uL Plt Count (150-450) k/uL Neutrophils # 8.8 H (1.3-7.7) k/uL BUN 7 L (9-20) mg/dL Glucose 127 H (74-99) mg/dL Magnesium 1.3 L (1.6-2.3) mg/dL U Benzodiazepines Scrn Detected H (NotDetected) 08/24/21 Range/Units 07:31 WBC (3.8-10.6) k/uL RBC 4.05 L (4.30-5.90) m/uL Plt Count 147 L (150-450) k/uL Neutrophils # (1.3-7.7) k/uL BUN (9-20) mg/dL Glucose (74-99) mg/dL Magnesium (1.6-2.3) mg/dL U Benzodiazepines Scrn (NotDetected) Thrombosis Risk Factor Assmnt - Choose All That Apply Each Factor Represents 1 point: Age 41-60 years Each Risk Factor Represents 3 Points: History of DVT/PE Thrombosis Risk Factor Assessment Total Risk Factor Score: 4 Thrombosis Risk Factor Assessment Level: Moderate Risk Assessment and Plan Assessment: 1. Mental status changes. At this time head CT was negative. Neurology and psychiatry services have been consulted 2. History of seizure disorder 3. Questionable medical compliance. Patient has had issues with taking his medication as prescribed in the past 4. History of stroke 5. History of psychosis 6. History of alcohol abuse 7. History of gout 8. History of hypertension 9. History of hyperlipidemia 10. History of depression and anxiety DVT prophylaxis Lovenox. GI prophylaxis Protonix Neurology and psychiatry service is consulted Home meds resumed Repeat labs ordered Time with Patient: Greater than 30 (Greater than 60% of the total time spent in counseling and coordination of care)
[2021-08-24] MEDS ORDERED: Potassium Replacement Protocol 1 EACH MISC MISCELLANE PRN (11:52)
[2021-08-24] MEDS: POTASSIUM CHLORIDE ER 20 MEQ TAB.ER PO SCH (12:31)
--- NOTE | 2021-08-24 14:44 | P.CN ---
Psychiatric Consult - . Consult date: 08/24/21 Consult:: 08/24/21 14:42 IDENTIFYING DATA: This patient is a single, unemployed, 51-year-old male with significant history of seizure disorder who presents to the hospital with altered mental status. HISTORY OF PRESENT ILLNESS: The patient presented to the hospital on 08/23/2021, brought into emergency Department for altered mental status. As per ED report, much of the history was provided by the patient's sister. The patient's sister reported the patient has had 5 episodes similar to this in the past. The sister reports that he is on multiple psychiatric medications antiseizure medications. The patient's sister reported the patient had an episode where he would become very tremulous and rigid and then become flaccid intermittently several times throughout the day. He would also display significant confusion. Psychiatry has been consulted for evaluation of altered mental status. Upon evaluation on the medical floor, present at the patient's bedside is his mother Lily South and the patient is agreeable with having her present during the psychiatric interview. The patient is currently alert and oriented to person and place however mistakes the year for 2007. He is able to identify that the current president is [place]. The patient's mother reports that this current episode started when the patient was placing a CD into his stereo and began pressing buttons nonsensically. She reports that he then became unresponsive. She states that the patient did urinate himself. He was then brought to the hospital and the patient continued to present as confused. He is feeling much better at this time. In regards to psychiatric symptoms, the patient is not reporting any suicidal or homicidal ideation, intention, and/or plan. He is not reporting any auditory or visual hallucinations. He reports that he has experienced visual hallucinations in the past but as per patient and his mother, not recently. The patient denies any paranoia or other delusions. The patient's mother also discusses that she has no concern for his mental health at this time. The patient is currently prescribed regimen of Prozac and Zyprexa. The patient's mother does identify that the patient has a significant history of anxiety and as per chart review, Zyprexa was started for bizarre behaviors during his last admission to the psychiatric unit. We discussed at length that these medications may lower seizure threshold and the patient and his mother are agreeable on decreasing the Prozac. The patient would like to stay on Zyprexa as he feels like he has not had any visual hallucinations and starting the medication. Patient and mother deny any recent heavy alcohol use. PAST PSYCHIATRIC HISTORY: Patient has a history of unspecified psychosis and alcohol abuse. The patient has been on a regimen of Prozac and Zyprexa since his last admission on the psychiatric unit in October 2020. The patient however does not follow any psychiatrists in the outpatient setting. There is a reported past suicide attempt in the early . PAST MEDICAL HISTORY: Past Medical History: Chest Pain / Angina, CVA/TIA, Hyperlipidemia, Hypertension, Seizure Disorder, Supraventricular Tachycardia (SVT), Syncope, Thyroid Disorder Additional Past Medical History / Comment(s): Pt states he had a small stroke in the past but no deficits, SVT with ablation, atach, acute encephalopathies/altered mental status associated with alcohol consumption, ETOH, hypothyroid, diverticular disease, chronic low back pain/spasms, last seizure possibly . History of Any Multi-Drug Resistant Organisms: None Reported Past Surgical History: Cardiac Ablation, Heart Catheterization Additional Past Surgical History / Comment(s): Cardiac ablation for SVT, tilt table test, stress test 2017, heart cath 2017, colonoscopy.. Past Anesthesia/Blood Transfusion Reactions: No Reported Reaction Additional Past Anesthesia/Blood Transfusion Reaction / Comment(s): Pt has never had transfusion. Past Psychological History: No Psychological Hx Reported, Anxiety, Depression, Panic Disorder Additional Psychological History / Comment(s): Pt recently admitted for psychosis. Pt lives with his parents. He no longer drives, his dad takes him to [employer]. He is otherwise, independent. Smoking Status: Never smoker Past Alcohol Use History: Daily Additional Past Alcohol Use History / Comment(s): States he drinks maybe 3-4 beers every other day. States his last drink was 4 days ago. Past Drug Use History: None Reported Additional Drug Use History / Comment(s): Past PDA abuse but none for years. ALLERGIES: Amoxicillin, sulfa CHEMICAL DEPENDENCY HISTORY: No reported heavy use at this time however as per chart review, there is a history of heavy alcohol use in the past. The patient otherwise does not report any other significant substance abuse history. FAMILY PSYCHIATRIC/SUBSTANCE USE HISTORY: No reported family psychiatric history. SOCIAL HISTORY: Patient has one sister. He currently lives with his parents. He graduated from high school. He is currently unemployed and has no income. MENTAL STATUS EXAM: General Appearance: Patient appears to be stated age is alert, pleasant, and cooperative. Patient appears to have fair hygiene and grooming wearing hospital gown with fair eye contact. Behavior: Patient is calmly lying in bed without any agitated behavior. Speech: Patient's speech is fluent and nonpressured. Mood/Affect: Patient reports their mood is "doing okay", affect is congruent and euthymic Suicidality/Homicidality: Patient denies having any suicidal or homicidal ideation intent or plan. Perceptions: Patient denies any visual hallucinations and denies any auditory hallucinations Though content/process: There is no evidence of any delusional thought content and thought process is linear and goal-directed. Memory and concentration: AOX2 - confused as to year, grossly intact for the purposes of this session. Can spell "WORLD" backwards Judgment and insight: Fair IMPRESSIONS: Altered mental status - suspect secondary to postictal state Seizure disorder History of acute psychosis Anxiety and depression as per history PLAN: -At this time patient DOES NOT meet criteria for inpatient psychiatric admission. The patient is currently not presenting with any overt symptoms of psychosis at this time. Furthermore, the patient is not presenting with any imminent risk of harm to self or others. The patient's mother also reports that she is not concerned about any psychiatric pathology at this time. -Would recommend the following medication changes/additions: We will decrease Prozac to 30 mg by mouth daily for depression/anxiety in order to decrease medications that may contribute to lowering the seizure threshold. We will continue Zyprexa at this time at its current dose as per her preference by the patient. The patient may benefit from Klonopin in the outpatient setting for management of anxiety as well as mitigation against seizures. -Recommend referral to outpatient psychiatry. The patient follows up with Dr. Sow for neurology. -Psychiatry will sign off at this point, please contact with any questions. 08/24/21 14:42
--- NOTE | 2021-08-24 23:33 | P.CNNES ---
History of Present Illness Consult date: 08/24/21 Requesting physician: Smith Brown Reason for Consult: Altered mental status History of Present Illness: Patient is a 51-year-old male came to the hospital yesterday at 8:58 PM for altered mental status. Patient is known to the neurology service for multiple admissions to the hospital. Patient has history of alcoholism, recurrent encephalopathy chronic low back pain and seizure disorder. He also has history of SVT with cardiac ablation. Patient not able to provide any history. As per ED records, patient was brought to the hospital by his sister for altered mental status. Patient's sister has mentioned that he had 5 episodes of similar presentation in the past. The last time he was admitted was last year. He has been altered since the morning. Patient's sister also mentioned that he is on multiple psychiatric medications and antiseizure medications. He has these episodes where he would be tremulous, and rigid and becomes flaccid intermittently several times throughout the day. Patient is also confused. Patient is typically very high functioning, lives with his parents. Patient had a similar episode in June where he became twitchy, fell and fractured his mandible. I had seen patient the last time on 10/21/2020 when patient was transferred to psych unit for auditory hallucinations with acute psychosis. It was felt to be possibly related to alcohol withdrawal. Patient was seen most recently by neurology service on 12/11/2020 which was felt to be related to overdosing on baclofen as he took 9 tablets of baclofen at that time. Patient has seizure disorder for which he is on Vimpat 200 mg twice a day. Patient initially denied taking any medication overdose. When I asked the same question a couple times, patient states that he did overdose "a little bit" not a whole lot. He could not tell if what medications he took. He denies any drug use. Vital signs arrival blood pressure 154/90, pulse is 70 temperature 99.1. Blood test shows WBC 11.1, which has come down to 8.7 today. Hemoglobin 14.8, platelets 166. Electrolytes are normal, but AST 40, ALT 23. Ammonia is normal. UA negative, urine drug screen positive for benzodiazepine. Blood alcohol level negative. CT head showed no acute intracranial abnormality. I personally reviewed computed tomography scan of the head and agree with the findings. There is evidence of bilateral basal ganglia calcification as well as involving the right subcortical periventricular frontal region. EKG with sinus rhythm. Patient's last B12 was 577 and folate 13.3 on 10/24/2020. Review of Systems He admits to having no headache. ROS unobtainable: due to mental status Past Medical History Past Medical History: Chest Pain / Angina, CVA/TIA, Hyperlipidemia, Hypertension, Seizure Disorder, Supraventricular Tachycardia (SVT), Syncope, Thyroid Disorder Additional Past Medical History / Comment(s): Pt states he had a small stroke in the past but no deficits, SVT with ablation, atach, acute encephalopat hies/altered mental status associated with alcohol consumption, ETOH, hypothyroid, diverticular disease, chronic low back pain/spasms, last seizure possibly . History of Any Multi-Drug Resistant Organisms: None Reported Past Surgical History: Cardiac Ablation, Heart Catheterization Additional Past Surgical History / Comment(s): Cardiac ablation for SVT, tilt table test, stress test 2017, heart cath 2017, colonoscopy.. Past Anesthesia/Blood Transfusion Reactions: No Reported Reaction Additional Past Anesthesia/Blood Transfusion Reaction / Comment(s): Pt has never had transfusion. Past Psychological History: No Psychological Hx Reported, Anxiety, Depression, Panic Disorder Additional Psychological History / Comment(s): Pt recently admitted for psychosis. Pt lives with his parents. He no longer drives, his dad takes him to [employer]. He is otherwise, independent. Smoking Status: Never smoker Past Alcohol Use History: Daily Additional Past Alcohol Use History / Comment(s): States he drinks maybe 3-4 beers every other day. States his last drink was 4 days ago. Past Drug Use History: None Reported Additional Drug Use History / Comment(s): Past PDA abuse but none for years. - Past Family History Mother History Unknown: Yes Family Medical History: Musculoskeletal Disorder, Neurologic Disorder Additional Family Medical History / Comment(s): MS. Mother is living. Father History Unknown: Yes Additional Family Medical History / Comment(s): BREATHING PROBLEMS-never goes to the doctor. Father is living. Medications and Allergies Home Medications Medication Instructions Recorded Confirmed Type allopurinoL [Zyloprim] 100 mg PO DAILY #30 tab 06/21/18 08/23/21 Rx Metoprolol Succinate [Toprol XL] 25 mg PO BID 12/24/19 08/23/21 History lisinopriL [Zestril] 2.5 mg PO DAILY 12/24/19 08/23/21 History Rosuvastatin Calcium [Crestor] 5 mg PO DAILY 10/15/20 08/23/21 History Cholecalciferol [Vitamin D3 (25 50 mcg PO DAILY 12/05/20 08/23/21 History Mcg = 1000 Iu)] FLUoxetine HCL [PROzac] 40 mg PO DAILY 12/05/20 08/23/21 History Lacosamide [Vimpat] 200 mg PO BID@1000,1900 12/11/20 08/23/21 History ALPRAZolam [Xanax] 0.25 mg PO HS PRN 07/08/21 08/23/21 History Meclizine [Antivert] 12.5 mg PO TID 07/08/21 08/23/21 History OLANZapine 10 mg PO TID 07/08/21 08/23/21 History Triamcinolone 0.1% Cream [Kenalog 1 applicatio TOPICAL BID PRN 07/08/21 08/23/21 History 0.1% Cream] Baclofen [Lioresal] 10 mg PO BID PRN 08/23/21 08/23/21 History Levothyroxine Sodium [Synthroid] 112 mcg PO DAILY 08/23/21 08/23/21 History Allergies Allergy/AdvReac Type Severity Reaction Status Date / Time amoxicillin Allergy Rash/Hives Verified 08/23/21 22:56 Sulfa (Sulfonamide Allergy Rash/Hives Verified 08/23/21 22:56 Antibiotics) Physical Examination - Vital Signs Vital Signs: Vital Signs Temp Pulse Pulse Resp BP BP Pulse Ox 08/24/21 08:00 98.2 F 74 17 124/79 98 08/24/21 02:00 98.1 F 76 17 117/75 96 08/23/21 23:41 98.5 F 79 18 127/77 98 08/23/21 21:05 99.1 F 70 18 154/90 99 Intake and Output 08/23/21 08/24/21 08/24/21 22:59 06:59 14:59 Other: # Voids 2 Weight 54.431 kg 54.431 kg Patient is a middle aged male, who is in no acute distress. Patient is somnolent, encephalopathic, keeps his eyes closed. He was able to tell me that he is in [place]. He could not tell the current year or the month. Speech output was limited, but his baseline. He speaks in very low volume. No obvious aphasia or dysarthria noted. Attention, concentration and fund of knowledge is very limited at this time. On cranial examination, pupils are equal, round and reacting to light, visual french could not be tested reliably. His extraocular muscles are intact with no nystagmus. Face is symmetric, tongue protrudes to the midline. No evidence of tongue bite brigitte. Palatal elevation and sensation could not be tested. Hear ing appears normal although not following commands easily because of encephalopathy. His shoulder shrug normal, facial sensation normal. Shoulder shrug normal. On muscle strength testing, there is no pronator drift patient strength appears equal bilaterally. He did not cooperate. Deep tendon reflexes are symmetric, 1 at the biceps, 0 brachioradialis, 2 at the knees, 1 ankles and plantars downgoing bilaterally. Sensory to touch is equal with no neglect. Cerebellar functions could not be tested because of his mental status. Tone and bulk of muscles normal. Gait not able to be checked. On general examination, there is no carotid bruit or murmur, S1-S2 audible. Abdomen is soft nontender. No organomegaly, bowel sounds present. Chest is clear. Peripheral pulses are present. No edema. Results - Laboratory Findings CBC and BMP: 08/24/21 07:31 08/24/21 07:31 Abnormal Lab Findings: Abnormal Labs 08/23/21 08/23/21 08/23/21 21:23 21:23 23:16 WBC 11.1 H RBC Plt Count Neutrophils # 8.8 H Potassium BUN 7 L Glucose 127 H Magnesium 1.3 L U Benzodiazepines Scrn Detected H 08/24/21 08/24/21 07:31 07:31 WBC RBC 4.05 L Plt Count 147 L Neutrophils # Potassium 3.4 L BUN 5 L Glucose 101 H Magnesium U Benzodiazepines Scrn Assessment and Plan Assessment: * Altered mental status, unclear etiology, rule out postictal state, rule out medication overdose. * Seizure disorder * History of psychosis, requiring admission to the mental health unit. * Anxiety and depression. * Alcohol use * Hypothyroidism * Cardiomyopathy, with history of cardiac ablation. Plan: * Patient is currently on Vimpat 200 mg twice a day, which will be continued. Patient had multiple EEGs (four routine EEGs) and 1 prolonged EEG, all were normal. I will try to obtain collateral history from patient's sister is well. Patient may benefit from addition of Lamictal 25 mg twice a day, which is a mood stabilizer as well as works very well for seizures. * Patient will need to follow up with neurologist as outpatient. * Psychiatry also on board. * We will follow patient clinically. Thank you for the consult.
[2021-08-25] MEDS: LEVOTHYROXINE 112 MCG TAB PO SCH (06:24)
[2021-08-25 08:40] LABS: Basophils # (A) 0.03 X 10*3/uL (0.00-0.10); Basophils % (A) 0.7 %; Eosinophils # (A) 0.24 X 10*3/uL (0.04-0.35); Eosinophils % (A) 5.5 %; HCT 38.5 % (39.6-50.0); HGB 12.6 g/dL (13.0-17.0); Immature Grans, Automated 0.2 %; Lymphocytes % (A) 27.3 %; MCH 31.4 pg (27.0-32.0); MCHC 32.7 g/dL (32.0-37.0); Mean Platelet Volume 9.8 fL (9.5-12.2); Monocytes # (A) 0.54 X 10*3/uL (0.20-1.00); Monocytes % (A) 12.3 %; NRBC Per 100 WBC 0 /100 WBCS (0.0-0.0); Neutrophils # (A) 2.37 X 10*3/uL (1.80-7.70); Platelet Count 145 X 10*3/uL (140-440); RBC 4.01 X 10*6/uL (4.40-5.60); WBC 4.39 X 10*3/uL (4.50-10.00)
[2021-08-25 09:04] LABS: African American GFR (CKD) 126.6 (60.0-200.0); Albumin 3.7 g/dL (3.8-4.9); Albumin/Globulin Ratio 1.76 (1.60-3.17); Anion Gap 12.8 mmol/L (10.00-18.00); Blood Urea Nitrogen 5.6 mg/dL (9.0-27.0); Calcium 8.6 mg/dL (8.7-10.3); Carbon Dioxide 22.2 mmol/L (20.0-27.5); Globulin 2.1 g/dL (1.6-3.3); Non-African American GFR(CKD) 109.3 (60.0-200.0); Potassium 3.7 mmol/L (3.5-5.5); Total Bilirubin 0.5 mg/dL (0.30-1.20); Total Protein 5.8 g/dL (6.2-8.2)
[2021-08-25] MEDS: LACOSAMIDE 150 MG TABLET PO SCH ×2 (09:34→19:32)
[2021-08-25] MEDS: LACOSAMIDE 50 MG TABLET PO SCH ×2 (09:34→19:32)
[2021-08-25] MEDS: CHOLECALCIFEROL 25 MCG (1000 IU) TABLET PO SCH (09:34)
[2021-08-25] MEDS: allopurinoL 100 MG TAB PO SCH (09:35)
[2021-08-25] MEDS: ENOXAPARIN 40 MG/0.4 ML SYRINGE SQ SCH (09:35)
[2021-08-25] MEDS: PANTOPRAZOLE 40 MG TABLET PO SCH (09:35)
[2021-08-25] MEDS: ATORVASTATIN 10 MG TAB PO SCH (09:35)
[2021-08-25] MEDS: FLUoxetine HCL 10 MG CAP PO SCH (09:37)
[2021-08-25] MEDS: MECLIZINE 12.5 MG TAB PO SCH ×3 (09:37→21:34)
[2021-08-25] MEDS: OLANZapine 10 MG TAB PO SCH ×3 (09:37→21:34)
[2021-08-25] MEDS: METOPROLOL SUCCINATE (ER) 25 MG TAB.ER.24H PO SCH ×2 (09:38→20:03)
[2021-08-25] MEDS: ALPRAZolam 0.25 MG TAB PO PRN (21:33)
[2021-08-26] MEDS: LEVOTHYROXINE 112 MCG TAB PO SCH (06:35)
[2021-08-26 08:08] VITALS: BP 114/77; PULSE 83; RESP 18; TEMP 98
[2021-08-26] MEDS: CHOLECALCIFEROL 25 MCG (1000 IU) TABLET PO SCH (08:14)
[2021-08-26] MEDS: allopurinoL 100 MG TAB PO SCH (08:14)
[2021-08-26] MEDS: PANTOPRAZOLE 40 MG TABLET PO SCH (08:15)
[2021-08-26] MEDS: MECLIZINE 12.5 MG TAB PO SCH (08:15)
[2021-08-26] MEDS: ATORVASTATIN 10 MG TAB PO SCH (08:15)
[2021-08-26] MEDS: METOPROLOL SUCCINATE (ER) 25 MG TAB.ER.24H PO SCH (08:15)
[2021-08-26] MEDS: FLUoxetine HCL 10 MG CAP PO SCH (08:15)
[2021-08-26] MEDS: ENOXAPARIN 40 MG/0.4 ML SYRINGE SQ SCH (08:15)
[2021-08-26] MEDS: OLANZapine 10 MG TAB PO SCH (08:16)
--- NOTE | 2021-08-26 09:13 | P.PN ---
Subjective Progress Note Date: 08/25/21 Patient was seen for a follow-up. Patient is fully alert and awake. He is back to baseline. Patient states that he takes everything as it is prescribed. He denies overdosing on anything. He states that he kept on losing the balance. He says that he remembers that he felt that he is falling. He states that he did fall 1 time but did not hit his head. Denies any new neurological symptoms at this time. Objective - Vital Signs Vital signs: Vital Signs Temp 98.0 F 08/26/21 08:00 Pulse 83 08/26/21 08:00 Resp 18 08/26/21 08:00 BP 114/77 08/26/21 08:00 Pulse Ox 97 08/26/21 08:00 Intake & Output 08/25/21 08/26/21 08/26/21 18:59 06:59 18:59 Intake Total 480 Output Total 400 Balance 480 -400 Intake: Oral 480 Output: Urine 400 Other: Voiding Method Urinal Urinal # Voids 2 2 - Exam Patient's mental status, speech and liver functions are normal. He knows it is August 2021 and that is in [facility]. Speech and language functions are normal cranial nerves are normal muscle strength normal. He is sl ightly tremulous. - Labs CBC & Chem 7: 08/25/21 04:55 08/25/21 04:55 Assessment and Plan Assessment: * Altered mental status, unclear etiology, rule out postictal state, rule out medication overdose. * Seizure disorder * History of psychosis, requiring admission to the mental health unit in the past. * Anxiety and depression. * Alcohol use * Hypothyroidism * Cardiomyopathy, with history of cardiac ablation. Plan: * Patient is currently on Vimpat 200 mg twice a day, which will be continued. Patient had multiple EEGs (four routine EEGs) and 1 prolonged EEG, all were normal. Patient may benefit from addition of Lamictal 25 mg twice a day, which is a mood stabilizer as well as works very well for seizures. * Patient will need to follow up with neurologist as outpatient. * Psychiatry also on board. Suspecting postictal state. * Neurologically clear.
[2021-08-26] MEDS ORDERED: lamoTRIgine 25 MG TAB PO SCH (09:30)
[2021-08-26] MEDS: LACOSAMIDE 50 MG TABLET PO SCH (09:52)
[2021-08-26] MEDS: LACOSAMIDE 150 MG TABLET PO SCH (09:52)
--- NOTE | 2021-08-26 10:10 | P.PN ---
Subjective Progress Note Date: 08/25/21 This is a 51-year-old male patient who presented to the ER with concerns of increased confusion. According to ER report patient was brought in by his sister. Patient himself is a poor historian and is confused at this time. According to ER records. Patient started showing symptoms since yesterday morn ing. Patient has had multiple hospital admissions for similar episodes in the past. Patient does have a past medical history of seizures, CVA, hyperlipidemia, hypertension, SVT, thyroid disorder, cardiac ablation, EtOH, anxiety depression panic disorder. Head CT was completed in ER showing no acute intracranial abnormality. Patient is confused but does state he has been taking his medication. Serum alcohol less than 10. Lab work unremarkable. Current vitals temp 98.2, pulse rate 74, respiratory rate 17, blood pressure 124/79 pulse ox of 98% on room air. Home medications have been resumed. Neurology and psychiatry services have been consulted. Repeat labs ordered 08/25/2021 patient's alert and oriented 3. Mentation is improved psychiatry and neurology services are following. Vitals have remained stable medications adjusted per psychiatry neurology Objective - Vital Signs Vital signs: Vital Signs Temp 97.9 F 08/25/21 14:26 Pulse 72 08/25/21 14:26 Resp 18 08/25/21 14:26 BP 108/71 08/25/21 14:26 Pulse Ox 96 08/25/21 14:26 Intake & Output 08/24/21 08/25/21 08/25/21 18:59 06:59 18:59 Intake Total 240 Balance 240 Intake: Oral 240 Other: # Voids 4 3 - Exam Head normocephalic Neck supple Lungs clear to auscultation bilaterally no wheezing or crackles Heart regular rate and rhythm S1-S2, no rub or gallop Abdomen is soft nontender nondistended positive bowel sounds no hepatosplenomegaly Extremities no edema Neuro alert and orientated 3 - Labs CBC & Chem 7: 08/25/21 04:55 08/25/21 04:55 Labs: Abnormal Lab Results - Last 24 Hours (Table) 08/25/21 08/25/21 Range/Units 04:55 04:55 WBC 4.39 L (4.50-10.00) X 10*3/uL RBC 4.01 L (4.40-5.60) X 10*6/uL Hgb 12.6 L (13.0-17.0) g/dL Hct 38.5 L (39.6-50.0) % BUN 5.6 L (9.0-27.0) mg/dL BUN/Creatinine Ratio 8.00 L (12.00-20.00) Ratio Calcium 8.6 L (8.7-10.3) mg/dL Total Protein 5.8 L (6.2-8.2) g/dL Albumin 3.7 L (3.8-4.9) g/dL Assessment and Plan Assessment: 1. Mental status changes. At this time head CT was negative. Neurology and psychiatry services have been consulted 2. History of seizure disorder 3. Questionable medical compliance. Patient has had issues with taking his medication as prescribed in the past 4. History of stroke 5. History of psychosis 6. History of alcohol abuse 7. History of gout 8. History of hypertension 9. History of hyperlipidemia 10. History of depression and anxiety DVT prophylaxis Lovenox. GI prophylaxis Protonix Neurology and psychiatry service is consulted Home meds resumed Repeat labs ordered
--- NOTE | 2021-08-26 10:12 | P.DS ---
Providers Date of admission: 08/23/21 22:37 Expected date of discharge: 08/26/21 Attending physician: Aries Ma Consults: 08/23/21 22:38 Consult Physician Routine Consulting Provider: Juan Alberto Mac Consult Reason/Comments: altered mental status Do you want consulting provider notified?: Yes Consult Physician Routine Consulting Provider: Kitty Chakraborty Consult Reason/Comments: ams Do you want consulting provider notified?: Yes Primary care physician: Aries Ma Hospital Course: Discharge diagnoses 1. Mental status changes. At this time head CT was negative. Neurology and psychiatry services have been consulted 2. History of seizure disorder 3. Questionable medical compliance. Patient has had issues with taking his medication as prescribed in the past 4. History of stroke 5. History of psychosis 6. History of alcohol abuse 7. History of gout 8. History of hypertension 9. History of hyperlipidemia 10. History of depression and anxiety Hospital course This is a 51-year-old male patient who presented to the ER with concerns of increased confusion. According to ER report patient was brought in by his sister. Patient himself is a poor historian and is confused at this time. According to ER records. Patient started showing symptoms since yesterday morning. Patient has had multiple hospital admissions for similar episodes in the past. Patient does have a past medical history of seizures, CVA, hyperlipidemia, hypertension, SVT, thyroid disorder, cardiac ablation, EtOH, anxiety depression panic disorder. Head CT was completed in ER showing no acute intracranial abnormality. Patient is confused but does state he has been taking his medication. Serum alcohol less than 10. Lab work unremarkable. Current vitals temp 98.2, pulse rate 74, respiratory rate 17, blood pressure 124/79 pulse ox of 98% on room air. Home medications have been resumed. Neurology and psychiatry services have been consulted. Repeat labs ordered 08/25/2021 patient's alert and oriented 3. Mentation is improved psychiatry and neurology services are following. Vitals have remained stable medications adjusted per psychiatry neurology On 08/26/2021 patient's alert and oriented 3. Mentation has returned to baseline. Patient cleared for discharge from psychiatry neurology services. Prozac decreased and Lamictal added. Patient to follow-up with his neurologist for further management. At this time patient denies chest pain or shortness breath. Patient denies nausea vomiting or diarrhea. Patient denies any urinary burning or frequency Patient Condition at Discharge: Stable Plan - Discharge Summary Discharge Rx Participant: No New Discharge Prescriptions: New lamoTRIgine [LaMICtal] 25 mg PO BID 30 Days #60 tab FLUoxetine HCL [PROzac] 30 mg PO DAILY 30 Days #30 cap Continue allopurinoL [Zyloprim] 100 mg PO DAILY #30 tab Metoprolol Succinate [Toprol XL] 25 mg PO BID lisinopriL [Zestril] 2.5 mg PO DAILY Rosuvastatin Calcium [Crestor] 5 mg PO DAILY Cholecalciferol [Vitamin D3 (25 Mcg = 1000 Iu)] 50 mcg PO DAILY ALPRAZolam [Xanax] 0.25 mg PO HS PRN PRN Reason: Anxiety Levothyroxine Sodium [Synthroid] 112 mcg PO DAILY Lacosamide [Vimpat] 200 mg PO BID@1000,1900 Triamcinolone 0.1% Cream [Kenalog 0.1% Cream] 1 applicatio TOPICAL BID PRN PRN Reason: RED PATCHES Meclizine [Antivert] 12.5 mg PO TID OLANZapine 10 mg PO TID Baclofen [Lioresal] 10 mg PO BID PRN PRN Reason: Muscle Pain Discontinued FLUoxetine HCL [PROzac] 40 mg PO DAILY Discharge Medication List allopurinoL [Zyloprim] 100 mg PO DAILY #30 tab 06/21/18 [Rx] Metoprolol Succinate [Toprol XL] 25 mg PO BID 12/24/19 [History] lisinopriL [Zestril] 2.5 mg PO DAILY 12/24/19 [History] Rosuvastatin Calcium [Crestor] 5 mg PO DAILY 10/15/20 [History] Cholecalciferol [Vitamin D3 (25 Mcg = 1000 Iu)] 50 mcg PO DAILY 12/05/20 [History] Lacosamide [Vimpat] 200 mg PO BID@1000,1900 12/11/20 [History] ALPRAZolam [Xanax] 0.25 mg PO HS PRN 07/08/21 [History] Meclizine [Antivert] 12.5 mg PO TID 07/08/21 [History] OLANZapine 10 mg PO TID 07/08/21 [History] Triamcinolone 0.1% Cream [Kenalog 0.1% Cream] 1 applicatio TOPICAL BID PRN 07/08/21 [History] Baclofen [Lioresal] 10 mg PO BID PRN 08/23/21 [History] Levothyroxine Sodium [Synthroid] 112 mcg PO DAILY 08/23/21 [History] FLUoxetine HCL [PROzac] 30 mg PO DAILY 30 Days #30 cap 08/26/21 [Rx] lamoTRIgine [LaMICtal] 25 mg PO BID 30 Days #60 tab 08/26/21 [Rx] Follow up Appointment(s)/Referral(s): Daniela Sow MD [Medical Doctor] - 1 Week Aries Ma MD [Primary Care Provider] - 1-2 days Activity/Diet/Wound Care/Special Instructions: Activity as tolerated Diet heart healthy Discharge Disposition: HOME SELF-CARE
== END 2021-08-26 11:08 | disposition home or self-care (01) | DRG 101 ==
LOC: EC 20:58 → 4SSUR 22:37
PROVIDERS: ADMIT Internal Medicine; ATTEND Internal Medicine
DX: G40.909 Epilepsy, unspecified, not intractable, without status epilepticus (principal); I42.9 Cardiomyopathy, unspecified; E03.9 Hypothyroidism, unspecified; E78.5 Hyperlipidemia, unspecified; I10 Essential (primary) hypertension; M10.9 Gout, unspecified; F32.A Depression, unspecified; F41.9 Anxiety disorder, unspecified; E83.42 Hypomagnesemia; K57.90 Diverticulosis of intestine, part unspecified, without perforation or abscess without bleeding; M54.50 Low back pain, unspecified; G89.29 Other chronic pain; Z79.890 Hormone replacement therapy; Z79.899 Other long term (current) drug therapy; Z86.73 Personal history of transient ischemic attack (TIA), and cerebral infarction without residual deficits; Z91.81 History of falling; Z86.59 Personal history of other mental and behavioral disorders
CPT/HCPCS: 36415; 70450; 80053; 80143; 80179; 80306; 80320; 81003; 82140; 83605; 83735; 83930; 85025; 93005; 96374; 99285

== ENCOUNTER 2022-03-22 21:08 | Emergency (ER) | payer OTHER ==
[2022-03-22 22:40] VITALS: TEMP 98.2
[2022-03-22] MEDS ORDERED: DIPH,PERTUS(ACELL)TETVAC-LF 0.5 ML VIAL IM ONE (22:52)
[2022-03-22] MEDS ORDERED: LIDOCAINE 1% INJ 10MG/ML (20 ML MDV) SQ ONE (22:52)
--- NOTE | 2022-03-22 23:04 | ED ---
Fall HPI - General Chief Complaint: Fall Stated Complaint: Fall, head injury Time Seen by Provider: 03/22/22 22:43 Source: patient Mode of arrival: ambulatory - History of Present Illness Initial Comments: Patient is a 51-year-old male presenting with chief complaint of headache injury. Patient states that this evening he fell down 4 stairs onto cement. There was no loss of consciousness and patient is not on any blood thinners. Patient does have a laceration to the back of his head, at this time bleeding is well-controlled. Patient does not remember when his last tetanus was. No nausea, vomiting, headache, neck pain or stiffness, vision and hearing changes, difficulty breathing, chest pain. He admits to mild dizziness. - Related Data Home Medications Medication Instructions Recorded Confirmed Metoprolol Succinate [Toprol XL] 25 mg PO BID 12/24/19 08/23/21 lisinopriL [Zestril] 2.5 mg PO DAILY 12/24/19 08/23/21 Rosuvastatin Calcium [Crestor] 5 mg PO DAILY 10/15/20 08/23/21 Cholecalciferol [Vitamin D3 (25 50 mcg PO DAILY 12/05/20 08/23/21 Mcg = 1000 Iu)] Lacosamide [Vimpat] 200 mg PO BID@1000,1900 12/11/20 08/23/21 ALPRAZolam [Xanax] 0.25 mg PO HS PRN 07/08/21 08/23/21 Meclizine [Antivert] 12.5 mg PO TID 07/08/21 08/23/21 OLANZapine 10 mg PO TID 07/08/21 08/23/21 Triamcinolone 0.1% Cream [Kenalog 1 applicatio TOPICAL BID PRN 07/08/21 08/23/21 0.1% Cream] Baclofen [Lioresal] 10 mg PO BID PRN 08/23/21 08/23/21 Levothyroxine Sodium [Synthroid] 112 mcg PO DAILY 08/23/21 08/23/21 Previous Rx's Medication Instructions Recorded allopurinoL [Zyloprim] 100 mg PO DAILY #30 tab 06/21/18 FLUoxetine HCL [PROzac] 30 mg PO DAILY 30 Days #30 cap 08/26/21 lamoTRIgine [LaMICtal] 25 mg PO BID 30 Days #60 tab 08/26/21 Allergies Allergy/AdvReac Type Severity Reaction Status Date / Time amoxicillin Allergy Rash/Hives Verified 03/22/22 22:40 Sulfa (Sulfonamide Allergy Rash/Hives Verified 03/22/22 22:40 Antibiotics) Review of Systems ROS Statement: Those systems with pertinent positive or pertinent negative responses have been documented in the HPI. ROS Other: All systems not noted in ROS Statement are negative. Past Medical History Past Medical History: Chest Pain / Angina, CVA/TIA, Hyperlipidemia, Hypertension, Seizure Disorder, Supraventricular Tachycardia (SVT), Syncope, Thyroid Disorder Additional Past Medical History / Comment(s): Pt states he had a small stroke in the past but no deficits, SVT with ablation, atach, acute encephalopathies/altered mental status associated with alcohol consumption, ETOH, hypothyroid, diverticular disease, chronic low back pain/spasms, last seizure possibly . History of Any Multi-Drug Resistant Organisms: None Reported Past Surgical History: Cardiac Ablation, Heart Catheterization Additional Past Surgical History / Comment(s): Cardiac ablation for SVT, tilt table test, stress test 2017, heart cath 2017, colonoscopy.. Past Anesthesia/Blood Transfusion Reactions: No Reported Reaction Additional Past Anesthesia/Blood Transfusion Reaction / Comment(s): Pt has never had transfusion. Past Psychological History: No Psychological Hx Reported, Anxiety, Depression, Panic Disorder Smoking Status: Never smoker Past Alcohol Use History: Daily Past Drug Use History: None Reported - Past Family History Mother History Unknown: Yes Family Medical History: Musculoskeletal Disorder, Neurologic Disorder Additional Family Medical History / Comment(s): MS. Mother is living. Father History Unknown: Yes Additional Family Medical History / Comment(s): BREATHING PROBLEMS-never goes to the doctor. Father is living. General Exam Limitations: no limitations General appearance: alert, in no apparent distress Head exam: Present: atraumatic, normocephalic, normal inspection Eye exam: Present: normal appearance, PERRL, EOMI. Absent: scleral icterus, conjunctival injection, periorbital swelling Pupils: Present: normal accommodation Neck exam: Present: normal inspection, full ROM. Absent: tenderness Respiratory exam: Present: normal lung sounds bilaterally. Absent: respiratory distress, wheezes, rales, rhonchi, stridor Cardiovascular Exam: Present: regular rate, normal rhythm, normal heart sounds. Absent: systolic murmur, diastolic murmur, rubs, gallop, clicks Neurological exam: Present: alert, oriented X3, CN II-XII intact Expanded Patient oriented to: Present: person, place, time Speech: Present: fluid speech Cranial nerves: EOM's Intact: Normal, Facial Sensation: Normal Cerebellar function: Finger to Nose: Normal, Heel to Huang: Normal Sensory exam: Upper Extremity Light Touch: Normal, Lower Extremity Light Touch: Normal Motor strength exam: RUE: 5, LUE: 5, RLE: 5, LLE: 5 Eye Response: (4) open spontaneously Motor Response: (6) obeys commands Verbal Response: (5) oriented Felecia Total: 15 Psychiatric exam: Present: normal affect, normal mood Skin exam: Present: warm, dry, intact, normal color. Absent: rash Course Vital Signs 03/22/22 22:36 Temperature 98.2 F Pulse Rate 84 Respiratory 18 Rate Blood Pressure 120/81 O2 Sat by Pulse 100 Oximetry Procedures - Laceration Laceration #1 Consent Obtained: verbal consent Indication: laceration Site: scalp Size (cm): 2 Description: linear Depth: simple, single layer Anesthetic Used: lidocaine 1%, without epi Anesthesia Technique: local infiltration Amount (mls): 2 Pre-repair: wound explored Type of Sutures: other ([place]) Number of Sutures: 3 Patient Tolerated Procedure: well Medical Decision Making - Medical Decision Making Patient is a 51-year-old male presenting with chief complaint of head injury. Patient fell down approximately 4 stairs this evening and landed on concrete. There is a laceration to scalp. There is no loss of consciousness and no blood thinners. On examination there are no focal neurological deficits. There is a small 1 cm laceration to the scalp. CT of the brain and cervical spine shows no acute abnormality. Tetanus is updated today. Wound is closed using vernon. Educated patient on wound care. Follow-up with PCP. Report back to ER with any new or worsening symptoms. Discussed return parameters and answered all questions. Patient conveyed verbal understanding and agreed to the plan. I discussed this case in detail with my attending Dr. Sullivan Disposition Clinical Impression: Scalp laceration, Fall Disposition: HOME SELF-CARE Condition: Good Instructions (If sedation given, give patient instructions): Staple Care (ED), Fall Prevention (ED), Head Laceration (ED) Additional Instructions: Follow-up with PCP. Report back to ER with any new or worsening symptoms. [place] may be removed in 7-10 days, this can be done here in the ER, by your PCP, or at a local urgent care. You can cleanse the wound gently with soap and water, do not soak or submerge the wound. Monitor for signs of infection, including but not limited to redness, swelling, warmth, pain, discharge, fever, chills. Is patient prescribed a controlled substance at d/c from ED?: No Referrals: Aries Ma MD [Primary Care Provider] - 1-2 days Time of Disposition: 23:46
--- NOTE | 2022-03-22 23:43 | CT ---
EXAMINATION TYPE: CT brain cspine wo con DATE OF EXAM: 03/22/2022 COMPARISON: 07/08/2021 HISTORY: Fall down steps CT DLP: 1298 mGycm Automated exposure control for dose reduction was used. Images of the brain and cervical spine obtained with no contrast. Ventricles have normal size. There is hypodensity which is patchy in the anterior internal capsule bi laterally. There is anterior bilateral thalamic mild calcification. There is no midline shift. No kenney dence of intracranial hemorrhage. Skull base is intact. There is normal aeration of the mastoid sinus es. The cervical vertebra have normal spacing and alignment. Posterior elements are intact. Facet joints are intact. Prevertebral soft tissues are intact. IMPRESSION: Old bilateral anterior internal capsule lacunar infarcts. Bilateral thalamic calcification. No acute intracranial abnormality. No change compared to old exam. Negative CT scan of the cervical spine. No change compared to old exam.
[2022-03-23 00:19] VITALS: BP 125/69; PULSE 69; RESP 15
== END 2022-03-23 00:20 | disposition home or self-care (01) ==
LOC: EC 21:08
DX: S01.01XA Laceration without foreign body of scalp, initial encounter (principal); Z23 Encounter for immunization; Z86.73 Personal history of transient ischemic attack (TIA), and cerebral infarction without residual deficits; E78.5 Hyperlipidemia, unspecified; I10 Essential (primary) hypertension; F41.9 Anxiety disorder, unspecified; F32.A Depression, unspecified; Z88.1 Allergy status to other antibiotic agents; Z88.2 Allergy status to sulfonamides; Z79.899 Other long term (current) drug therapy; W10.9XXA Fall (on) (from) unspecified stairs and steps, initial encounter
CPT/HCPCS: 99284 ×2; 90471 ×2; 12001 ×2; 72125; 70450; 90715; J2001

== ENCOUNTER → 2022-03-31 | Outpatient (CLI) | payer OTHER ==
[2022-03-31 18:32] LABS: HCT 42.6 % (39.6-50.0); MCH 31.2 pg (27.0-32.0); MCHC 32.9 g/dL (32.0-37.0); MCV 94.9 fL (80.0-97.0); Mean Platelet Volume 9.6 fL (9.5-12.2); NRBC Per 100 WBC 0 /100 WBCS (0.0-0.0); Platelet Count 285 X 10*3/uL (140-440); RBC 4.49 X 10*6/uL (4.40-5.60); RDW 13.6 % (11.5-14.5); WBC 6.07 X 10*3/uL (4.50-10.00)
[2022-03-31 18:44] LABS: ALT 10 U/L (10-49); AST 19 U/L (14-35); African American GFR (CKD) 114.2 (60.0-200.0); Albumin 4.4 g/dL (3.8-4.9); Albumin/Globulin Ratio 1.57 (1.60-3.17); Alkaline Phosphatase 90 U/L (41-126); BUN/Creat Ratio 10.67 Ratio (12.00-20.00); Blood Urea Nitrogen 9.6 mg/dL (9.0-27.0); Calcium 9.3 mg/dL (8.7-10.3); Carbon Dioxide 27.8 mmol/L (20.0-27.5); Chloride 107 mmol/L (96-109); Chol/HDL Ratio 2.82 Ratio; Globulin 2.8 g/dL (1.6-3.3); Glucose 98 mg/dL (70-110); LDL Cholesterol,Calculated 94.7 mg/dL (0.0-131.0); Magnesium 1.8 mg/dL (1.5-2.4); Non-African American GFR(CKD) 98.5 (60.0-200.0); Potassium 4.5 mmol/L (3.5-5.5); Sodium 145 mmol/L (135-145); Total Protein 7.2 g/dL (6.2-8.2); VLDL Calculation 15.58 mg/dL (5.00-40.00)
== END | disposition home or self-care (01) ==
LOC: LABWHC1 13:07
PROVIDERS: ATTEND Nurse Practitioner Adult Health
DX: I42.6 Alcoholic cardiomyopathy (principal); I95.9 Hypotension, unspecified; E78.5 Hyperlipidemia, unspecified; I47.1 Supraventricular tachycardia
CPT/HCPCS: 36415; 80053; 80061; 83735; 84439; 84443; 85027

== ENCOUNTER → 2022-11-14 | Outpatient (CLI) | payer OTHER ==
[2022-11-14 15:56] LABS: Anion Gap 10.9 mmol/L (10.00-18.00); BUN/Creat Ratio 13.38 Ratio (12.00-20.00); Blood Urea Nitrogen 10.7 mg/dL (9.0-27.0); Calcium 9.5 mg/dL (8.7-10.3); Carbon Dioxide 29.1 mmol/L (20.0-27.5); Non-African American GFR(CKD) 102.7 (60.0-200.0); Potassium 4.5 mmol/L (3.5-5.5)
== END | disposition home or self-care (01) ==
LOC: LABWHC1 10:22
PROVIDERS: ATTEND Internal Medicine Clinical Cardiac Electrophysiology
DX: Z13.228 Encounter for screening for other metabolic disorders (principal); I50.9 Heart failure, unspecified
CPT/HCPCS: 36415; 80048

== ENCOUNTER 2022-11-29 12:14 | Emergency (ER) | payer OTHER ==
[2022-11-29 12:40] VITALS: TEMP 98.1
[2022-11-29] MEDS ORDERED: KETOROLAC 15 MG/ML 1 ML VIAL IM STA (12:50)
--- NOTE | 2022-11-29 13:32 | XR ---
EXAMINATION TYPE: XR hand complete LT DATE OF EXAM: 11/29/2022 CLINICAL HISTORY: pain TECHNIQUE: Frontal, lateral and oblique images of the left hand are obtained. COMPARISON: None. FINDINGS: There is curvilinear ossific density adjacent to the hamate as well as cortical irregularit y involving the trapezium. Correlate clinically with point tenderness. Fractures are difficult to exc lude. There appears to be soft tissue swelling. Consider dedicated views of the wrist. IMPRESSION: Fractures of the hamate and trapezium are difficult to exclude.
--- NOTE | 2022-11-29 13:42 | ED ---
Upper Extremity HPI - General Chief Complaint: Extremity Injury, Upper Stated Complaint: Left Hand Injury Time Seen by Provider: 11/29/22 12:48 Source: patient Mode of arrival: ambulatory - History of Present Illness Initial Comments: Patient is a 52-year-old male who presents to the emergency department for left hand pain. Patient does not know how he injured his hand he believes he may have fallen yesterday in the bathroom door off of his bed while sleeping. Patient is a daily alcohol user his last drink was last night. He has history of encephalopathy, alcohol withdrawal, and seizure disorder. States he has never had a seizure related to alcohol withdrawal. He denies headache, neck pain. He does not use blood thinners. He denies chest pain, shortness of breath, nausea, vomiting Patient adamant that his only complaint is pain in the backside of his hand. He has a bruising and swelling to back of left hand. - Related Data Home Medications Medication Instructions Recorded Confirmed Metoprolol Succinate [Toprol XL] 25 mg PO BID 12/24/19 08/23/21 lisinopriL [Zestril] 2.5 mg PO DAILY 12/24/19 08/23/21 Rosuvastatin Calcium [Crestor] 5 mg PO DAILY 10/15/20 08/23/21 Cholecalciferol [Vitamin D3 (25 50 mcg PO DAILY 12/05/20 08/23/21 Mcg = 1000 Iu)] Lacosamide [Vimpat] 200 mg PO BID@1000,1900 12/11/20 08/23/21 ALPRAZolam [Xanax] 0.25 mg PO HS PRN 07/08/21 08/23/21 Meclizine [Antivert] 12.5 mg PO TID 07/08/21 08/23/21 OLANZapine 10 mg PO TID 07/08/21 08/23/21 Triamcinolone 0.1% Cream [Kenalog 1 applicatio TOPICAL BID PRN 07/08/21 08/23/21 0.1% Cream] Baclofen [Lioresal] 10 mg PO BID PRN 08/23/21 08/23/21 Levothyroxine Sodium [Synthroid] 112 mcg PO DAILY 08/23/21 08/23/21 Previous Rx's Medication Instructions Recorded allopurinoL [Zyloprim] 100 mg PO DAILY #30 tab 06/21/18 FLUoxetine HCL [PROzac] 30 mg PO DAILY 30 Days #30 cap 08/26/21 lamoTRIgine [LaMICtal] 25 mg PO BID 30 Days #60 tab 08/26/21 Ibuprofen [Motrin] 600 mg PO Q6HR PRN #30 tab 11/29/22 chlordiazePOXIDE HCl [Librium] 25 mg PO QID #20 capsule 11/29/22 Allergies Allergy/AdvReac Type Severity Reaction Status Date / Time amoxicillin Allergy Rash/Hives Verified 11/29/22 12:40 Sulfa (Sulfonamide Allergy Rash/Hives Verified 11/29/22 12:40 Antibiotics) Review of Systems ROS Statement: Those systems with pertinent positive or pertinent negative responses have been documented in the HPI. ROS Other: All systems not noted in ROS Statement are negative. Past Medical History Past Medical History: Chest Pain / Angina, CVA/TIA, Hyperlipidemia, Hypertension, Seizure Disorder, Supraventricular Tachycardia (SVT), Syncope, Thyroid Disorder Additional Past Medical History / Comment(s): Pt states he had a small stroke in the past but no deficits, SVT with ablation, atach, acute encephalopathies/altered mental status associated with alcohol consumption, ETOH, hypothyroid, diverticular disease, chronic low back pain/spasms, last seizure possibly . History of Any Multi-Drug Resistant Organisms: None Reported Past Surgical History: Cardiac Ablation, Heart Catheterization Additional Past Surgical History / Comment(s): Cardiac ablation for SVT, tilt table test, stress test 2017, heart cath 2017, colonoscopy.. Past Anesthesia/Blood Transfusion Reactions: No Reported Reaction Additional Past Anesthesia/Blood Transfusion Reaction / Comment(s): Pt has never had transfusion. Past Psychological History: No Psychological Hx Reported, Anxiety, Depression, Panic Disorder Smoking Status: Never smoker Past Alcohol Use History: Daily Past Drug Use History: None Reported - Past Family History Mother History Unknown: Yes Family Medical History: Musculoskeletal Disorder, Neurologic Disorder Additional Family Medical History / Comment(s): MS. Mother is living. Father History Unknown: Yes Additional Family Medical History / Comment(s): BREATHING PROBLEMS-never goes to the doctor. Father is living. General Exam General appearance: alert, in no apparent distress Head exam: Present: atraumatic, normocephalic, normal inspection ENT exam: Present: other (Tongue fasciculations no evidence of trauma to tongue) Respiratory exam: Present: normal lung sounds bilaterally. Absent: respiratory distress, wheezes, rales, rhonchi, stridor Cardiovascular Exam: Present: regular rate, normal rhythm, normal heart sounds. Absent: systolic murmur, diastolic murmur, rubs, gallop, clicks Extremities exam: Present: other (Bilateral hand tremor) Left Forearm Wrist exam: Present: normal inspection, full ROM, tenderness over anatomical snuff box. Absent: tenderness, swelling Hand Wrist exam: Present: full ROM, other (Swelling, ecchymosis, erythema to the dorsal region.) Neurological exam: Present: alert, oriented X3, CN II-XII intact Psychiatric exam: Present: normal affect, normal mood Skin exam: Present: warm, dry, intact, normal color. Absent: rash Course Vital Signs 11/29/22 11/29/22 12:36 14:19 Temperature 98.1 F 98.1 F Pulse Rate 76 83 Respiratory 18 20 Rate Blood Pressure 90/52 98/64 O2 Sat by Pulse 98 98 Oximetry Medical Decision Making - Medical Decision Making Was pt. sent in by a medical professional or institution (, PA, CALCULUS PROFESSOR, urgent care, hospital, or halfway...) When possible be specific @ -No Did you speak to anyone other than the patient for history (EMS, parent, family, police, friend...)? What history was obtained from this source @ -No Did you review nursing and triage notes (agree or disagree)? Why? @ -I reviewed and agree with nursing and triage notes Were old charts reviewed (outside hosp., previous admission, EMS record, old EKG, old radiological studies, urgent care reports/EKG's, halfway records)? Report findings @ -No old charts were reviewed Differential Diagnosis (chest pain, altered mental status, abdominal pain women, abdominal pain men, vaginal bleeding, weakness, fever, dyspnea, syncope, headache, dizziness, GI bleed, back pain, seizure, CVA, palpatations, mental health)? @ -Fracture, sprain, dislocation, contusion, cellulitis this list is not meant to be all-inclusive. EKG interpreted by me (3pts min.). @ -As above X-rays interpreted by me (1pt min.). @ -Possible Hamate and trapezius fracture CT interpreted by me (1pt min.). @ -None done U/S interpreted by me (1pt. min.). @ -None done What testing was considered but not performed or refused? (CT, X-rays, U/S, labs)? Why? @ -None What meds were considered but not given or refused? Why? @ -None Did you discuss the management of the patient with other professionals (professionals i.e. DrFabian, PA, CALCULUS PROFESSOR, lab, RT, psych nurse, bilingual social worker, contaminated land consultant, teacher, special technical operations officer, case reviewer)? Give summary @ -No Was smoking cessation discussed for >3mins.? @ -No Was critical care preformed (if so, how long)? @ -No Were there social determinants of health that impacted care today? How? (Homelessness, low income, unemployed, alcoholism, drug addiction, transportation, low edu. Level, literacy, decrease access to med. care, residential, rehab)? @ -No Was there de-escalation of care discussed even if they declined (Discuss DNR or withdrawal of care, Hospice)? DNR status @ -No What co-morbidities impacted this encounter? (DM, HTN, Smoking, COPD, CAD, Cancer, CVA, ARF, Chemo, Hep., AIDS, mental health diagnosis, sleep apnea, morbid obesity)? @ -None Was patient admitted / discharged? Hospital course, mention meds given and route, prescriptions, significant lab abnormalities, going to OR and other pertinent info. @ -Patient presenting for left hand injury. Xray interpreted by myself/radiology showing possible hamate/trapezius fracture. Patient has minimal tenderness in this region he does not have any swelling, erythema, or ecchymosis in the wrist however there is anatomical snuffbox tenderness. Patient was placed in volar arm splint. Patient has bilateral hand tremors and tongue fasciculation. He has heavy alcohol history. He appears to be in alcohol withdrawal. His last drink was yesterday. His vitals are within acceptable limits. I offered admission for alcohol withdrawal as patient has history of seizure. He repeatedly declined states he may or may not drink tonight at home. The patient is sober he is able to walk with a steady gait. He is alert and oriented x 4. Patient given Librium prescription. He will use his prescription if he decides to stop drinking alcohol. He is instructed to only take this medication in the absence of alcohol. I provided him resources for rehab. Patient in stable medical condition for discharge she will follow-up with landscape specialist. Undiagnosed new problem with uncertain prognosis? @ -No Drug Therapy requiring intensive monitoring for toxicity (Heparin, Nitro, Insulin, Cardizem)? @ -No Were any procedures done? @ -No Diagnosis/symptom? @ -Left hand injury, alcohol withdrawal Acute, or Chronic, or Acute on Chronic? @ -Acute Uncomplicated (without systemic symptoms) or Complicated (systemic symptoms)? @ -default Side effects of treatment? @ -No Exacerbation, Progression, or Severe Exacerbation? @ -No Poses a threat to life or bodily function? How? (Chest pain, [place], SC, pneumonia, PE, COPD, DKA, ARF, appy, cholecystitis, CVA, Diverticulitis, Homicidal, Suicidal, threat to staff... and all critical care pts) @ Not currently Dr. Ferrer is my attending Disposition Clinical Impression: Injury of left hand, Alcohol withdrawal Disposition: HOME SELF-CARE Condition: Good Instructions (If sedation given, give patient instructions): Hand Sprain (ED), Alcohol Withdrawal (ED) Additional Instructions: Librium is prescribed to you today to prevent alcohol withdrawal seizures. It should only be taken if you stop drinking alcohol. If you continue to drink alcohol tonight do not take this medication. Current alcohol cessation as it can cause permanent liver damage and other lifelong consequences to your body. You are referred to [facility] today who can help you with this process. Keep splint clean and dry. Rest and elevate the joint as much as possible. Ice the injury for the next 24-48 hours. If symptoms continue after, apply warm compress. Take Tylenol or Motrin as needed for pain. Follow-up with landscape specialist in 1 to 2 days. Return to the emergency department if you experience new, concerning, or worsening symptoms. Prescriptions: chlordiazePOXIDE HCl [Librium] 25 mg PO QID #20 capsule Ibuprofen [Motrin] 600 mg PO Q6HR PRN #30 tab PRN Reason: Pain Is patient prescribed a controlled substance at d/c from ED?: No Referrals: Cece Mejia DO [Doctor of Osteopathic Medicine] - 1-2 days Aries Ma MD [Primary Care Provider] - 1-2 days [facility] [Outside] - 1-2 days
[2022-11-29 14:20] VITALS: BP 98/64; PULSE 83; RESP 20
== END 2022-11-29 14:20 | disposition home or self-care (01) ==
LOC: EC 12:14
DX: S69.92XA Unspecified injury of left wrist, hand and finger(s), initial encounter (principal); F10.239 Alcohol dependence with withdrawal, unspecified; E78.5 Hyperlipidemia, unspecified; I10 Essential (primary) hypertension; E07.9 Disorder of thyroid, unspecified; Z86.73 Personal history of transient ischemic attack (TIA), and cerebral infarction without residual deficits; Z88.2 Allergy status to sulfonamides; Z88.0 Allergy status to penicillin; Z79.890 Hormone replacement therapy; Z79.899 Other long term (current) drug therapy; W18.11XA Fall from or off toilet without subsequent striking against object, initial encounter
CPT/HCPCS: 73130; 99283; 96372; J1885

== ENCOUNTER → 2023-04-04 | Outpatient (CLI) | payer OTHER ==
--- NOTE | 2023-04-04 07:45 | US ---
EXAMINATION TYPE: US abdomen limited DATE OF EXAM: 04/04/2023 COMPARISON: US 2019 CLINICAL INDICATION: Male, 52 years old with history of R94.5 ABNORMAL RESULTS OF LIVER FUNCTION STUD IES; Abnormal liver function test. TECHNIQUE: Multiple sonographic images of the right upper quadrant are obtained. FINDINGS: EXAM MEASUREMENTS: Liver Length: 14.3 cm Gallbladder Wall: 0.2 cm CBD: 0.6 cm Right Kidney: 8.4 x 4.3 x 4.0 cm PAIN MANAGEMENT PHYSICIAN NOTES: Exam is limited due to gas. Pancreas: Tail was not well seen. Liver: Appears very coarse in echotexture with increased echogenicity. Gallbladder: Appears wnl Evidence for sonographic Chand's sign: No CBD: Measures upper limits of normal Right Kidney: Measures small in size. IMPRESSION: Hepatic steatosis.
== END | disposition home or self-care (01) ==
LOC: RADUSWWP 06:49
PROVIDERS: ATTEND Internal Medicine
DX: K76.0 Fatty (change of) liver, not elsewhere classified (principal); R79.89 Other specified abnormal findings of blood chemistry; R94.5 Abnormal results of liver function studies
CPT/HCPCS: 76705

== ENCOUNTER 2023-09-12 00:10 | Inpatient (IN) | payer OTHER ==
[2023-09-12] MEDS: LORazepam 2 MG/ML INJ IV STA ×2 (00:36→19:12)
[2023-09-12] MEDS: SODIUM CHLORIDE 0.9% 1,000 ML IV STA (00:40)
[2023-09-12 00:43] LABS: Basophils % (A) 0 %; Eosinophils % (A) 1 %; HCT 46.1 % (39.0-53.0); HGB 14.4 gm/dL (13.0-17.5); Lymphocytes # (A) 1.5 k/uL (1.0-4.8); Lymphocytes % (A) 34 %; MCH 33.8 pg (25.0-35.0); MCHC 31.2 g/dL (31.0-37.0); MCV 108.5 fL (80.0-100.0); Macrocytosis Marked; Mean Platelet Volume 7.5; Monocytes # (A) 0.2 k/uL (0-1.0); Monocytes % (A) 5 %; Neutrophils # (A) 2.5 k/uL (1.3-7.7); Neutrophils % (A) 58 %; Platelet Count 152 k/uL (150-450); RBC 4.25 m/uL (4.30-5.90); RDW 15.6 % (11.5-15.5); WBC 4.3 k/uL (3.8-10.6)
--- NOTE | 2023-09-12 00:49 | ED ---
General Adult HPI - General Chief complaint: Altered Mental Status Stated complaint: Can't stand, nonverbal, confusion Time Seen by Provider: 09/12/23 00:18 Source: patient Mode of arrival: wheelchair Limitations: no limitations - History of Present Illness Initial comments: . Dictation was produced using [employer] dictation software. please excuse any grammatical, word or spelling errors. Chief Complaint: 53-year-old male brought in by parents for altered mental status History of Present Illness: Patient 53-year-old alcoholic male presents to the e mergency department for altered mental status. Patient was last seen normal at approximately 3 PM yesterday. Mother at the bedside provides history present illness states that since then he was pacing around the house. He did take a nap at approximately 9 PM when patient became worse. Apparently he had similar episode like this however mother reports that it was never this long lasting. Patient does abuse alcohol. Mother reports that last alcohol intake was over 24 hours ago. The ROS documented in this emergency department record has been reviewed and confirmed by me. Those systems with pertinent positive or negative responses have been documented in the HPI. All other systems are other negative and/or noncontributory. - Related Data Home Medications Medication Instructions Recorded Confirmed Metoprolol Succinate [Toprol XL] 25 mg PO BID 12/24/19 08/23/21 lisinopriL [Zestril] 2.5 mg PO DAILY 12/24/19 08/23/21 Rosuvastatin Calcium [Crestor] 5 mg PO DAILY 10/15/20 08/23/21 Cholecalciferol [Vitamin D3 (25 50 mcg PO DAILY 12/05/20 08/23/21 Mcg = 1000 Iu)] Lacosamide [Vimpat] 200 mg PO BID@1000,1900 12/11/20 08/23/21 ALPRAZolam [Xanax] 0.25 mg PO HS PRN 07/08/21 08/23/21 Meclizine [Antivert] 12.5 mg PO TID 07/08/21 08/23/21 OLANZapine 10 mg PO TID 07/08/21 08/23/21 Triamcinolone 0.1% Cream [Kenalog 1 applicatio TOPICAL BID PRN 07/08/21 08/23/21 0.1% Cream] Baclofen [Lioresal] 10 mg PO BID PRN 08/23/21 08/23/21 Levothyroxine Sodium [Synthroid] 112 mcg PO DAILY 08/23/21 08/23/21 Previous Rx's Medication Instructions Recorded allopurinoL [Zyloprim] 100 mg PO DAILY #30 tab 06/21/18 FLUoxetine HCL [PROzac] 30 mg PO DAILY 30 Days #30 cap 08/26/21 lamoTRIgine [LaMICtal] 25 mg PO BID 30 Days #60 tab 08/26/21 Ibuprofen [Motrin] 600 mg PO Q6HR PRN #30 tab 11/29/22 chlordiazePOXIDE HCl [Librium] 25 mg PO QID #20 capsule 11/29/22 Allergies Allergy/AdvReac Type Severity Reaction Status Date / Time amoxicillin Allergy Rash/Hives Verified 11/29/22 12:40 Sulfa (Sulfonamide Allergy Rash/Hives Verified 11/29/22 12:40 Antibiotics) Review of Systems ROS Statement: Those systems with pertinent positive or pertinent negative responses have been documented in the HPI. ROS Other: All systems not noted in ROS Statement are negative. Past Medical History Past Medical History: Chest Pain / Angina, CVA/TIA, Hyperlipidemia, Hypertension, Seizure Disorder, Supraventricular Tachycardia (SVT), Syncope, Th yroid Disorder Additional Past Medical History / Comment(s): Pt states he had a small stroke in the past but no deficits, SVT with ablation, atach, acute encephalopathies/alte red mental status associated with alcohol consumption, ETOH, hypothyroid, diverticular disease, chronic low back pain/spasms, last seizure possibly . History of Any Multi-Drug Resistant Organisms: None Reported Past Surgical History: Cardiac Ablation, Heart Catheterization Additional Past Surgical History / Comment(s): Cardiac ablation for SVT, tilt table test, stress test 2017, heart cath 2017, colonoscopy.. Past Anesthesia/Blood Transfusion Reactions: No Reported Reaction Additional Past Anesthesia/Blood Transfusion Reaction / Comment(s): Pt has never had transfusion. Past Psychological History: No Psychological Hx Reported, Anxiety, Depression, Panic Disorder Smoking Status: Never smoker Past Alcohol Use History: Daily Past Drug Use History: None Reported - Past Family History Mother History Unknown: Yes Family Medical History: Musculoskeletal Disorder, Neurologic Disorder Additional Family Medical History / Comment(s): MS. Mother is living. Father History Unknown: Yes Additional Family Medical History / Comment(s): BREATHING PROBLEMS-never goes to the doctor. Father is living. General Exam - General Exam Comments Initial Comments: PHYSICAL EXAM: General Impression: Alert and oriented x1/4, not in acute distress, uncooperative HEENT: Normocephalic atraumatic, extra-ocular movements intact, pupils equal and reactive to light bilaterally, mucous membranes moist. Cardiovascular: Heart regular rate and rhythm Chest: no retractions, no tachypnea Abdomen: abdomen soft, non-tender, non-distended, no organomegaly Musculoskeletal: Pulses present and equal in all extremities, no peripheral edema Motor: no focal deficits noted Neurological: CN II-XII grossly intact, no focal motor or sensory deficits noted Skin: Intact with no visualized rashes Limitations: no limitations Course Vital Signs 09/12/23 09/12/23 00:13 01:30 Temperature 97.4 F L Pulse Rate 68 60 Respiratory 18 18 Rate Blood Pressure 143/81 104/59 O2 Sat by Pulse 98 99 Oximetry EKG Findings - EKG Comments: EKG Findings:: My EKG interpretation: Ventricular rate 70, sinus rhythm, parable 186, QRS 110, QTc 454 70. No MS prolongation, no QTC prolongation, no ST or T- wave changes noted. Overall, this EKG is unremarkable Medical Decision Making - Medical Decision Making Was pt. sent in by a medical professional or institution ([facility], CONTROLLER MECHANIC, urgent care, hospital, or shelter...) When possible be specific @ -No Did you speak to anyone other than the patient for history (EMS, parent, family, police, friend...)? What history was obtained from this source @ -See above Did you review nursing and triage notes (agree or disagree)? Why? @ -I reviewed and agree with nursing and triage notes Were old charts reviewed (outside hosp., previous admission, EMS record, old EKG, old radiological studies, urgent care reports/EKG's, shelter records)? Report findings @ -No old charts were reviewed Differential Diagnosis (chest pain, altered mental status, abdominal pain women, abdominal pain men, vaginal bleeding, musculoskeletal, weakness, fever, dyspnea, syncope, headache, dizziness, GI bleed, back pain, seizure, CVA, palpatations, mental health)? @ -Differential Altered Mental Status: Hypoglycemia, DKA, hypercapnia, ETOH, overdose, CO poisoning, trauma, myxedema coma, HTN encephalopathy, infection, encephalitis, psychosis, intercranial hemorrhage, hepatic encephalopathy, meningitis, CVA, this is not meant to be an all-inclusive list EKG interpreted by me (3pts min.). @ -See above X-rays interpreted by me (1pt min.). @ -None done CT interpreted by me (1pt min.). @ -CT brain shows no acute processes U/S interpreted by me (1pt. min.). @ -None done What testing was considered but not performed or refused? (CT, X-rays, U/S, labs)? Why? @ -None What meds were considered but not given or refused? Why? @ -None Did you discuss the management of the patient with other professionals (professionals i.e. , PA, CONTROLLER MECHANIC, lab, RT, psych nurse, social work coordinator, ski patrol director, teacher, senior commercial loan officer, telehealth case manager)? Give summary @ -Case discussed with hospitalist for admission Was smoking cessation discussed for >3mins.? @ -No Was critical care preformed (if so, how long)? @ -No Were there social determinants of health that impacted care today? How? (Homelessness, low income, unemployed, alcoholism, drug addiction, transportation, low edu. Level, literacy, decrease access to med. care, assisted, rehab)? @ -No Was there de-escalation of care discussed even if they declined (Discuss DNR or withdrawal of care, Hospice)? DNR status @ -No What co-morbidities impacted this encounter? (DM, HTN, Smoking, COPD, CAD, Cancer, CVA, ARF, Chemo, Hep., AIDS, mental health diagnosis, sleep apnea, morbid obesity)? @ -None Was patient admitted / discharged? Hospital course, mention meds given and route, prescriptions, significant lab abnormalities, going to OR and other pertinent info. @ -53-year-old male presents to the emergency department for acute altered mental status. Vital signs upon arrival are within acceptable limits. Patient is altered. According to chart review and discharge summaries from the recent past patient has been in the hospital for similar like this. He has been evaluated by neurology and also psychiatry with no apparent cause. Suspected patient having alcohol withdrawal. Laboratory evaluation within acceptable limits. Serum alcohol is negative. Patient will be admitted with consultation to neurology. Undiagnosed new problem with uncertain prognosis? @ -No Drug Therapy requiring intensive monitoring for toxicity (Heparin, Nitro, Insulin, Cardizem)? @ -No Were any procedures done? @ -No Diagnosis/symptom? Acute, or Chronic, or Acute on Chronic? Uncomplicated (with out systemic symptoms) or Complicated (systemic symptoms)? @ -Altered mental status Side effects of treatment? @ -No Exacerbation, Progression, or Severe Exacerbation? @ -No Poses a threat to life or bodily function? How? (Chest pain, [place], [place], pneumonia, PE, COPD, DKA, ARF, appy, cholecystitis, CVA, Diverticulitis, Homicidal, Suicidal, threat to staff... and all critical care pts) @ -Yes - Lab Data Result diagrams: 09/12/23 00:31 09/12/23 00:31 Lab Results 09/12/23 09/12/23 09/12/23 Range/Units 00:31 00:31 00:31 WBC 4.3 (3.8-10.6) k/uL RBC 4.25 L (4.30-5.90) m/uL Hgb 14.4 (13.0-17.5) gm/dL Hct 46.1 (39.0-53.0) % MCV 108.5 H (80.0-100.0) fL MCH 33.8 (25.0-35.0) pg MCHC 31.2 (31.0-37.0) g/dL RDW 15.6 H (11.5-15.5) % Plt Count 152 (150-450) k/uL MPV 7.5 Macrocytosis Marked A PT 10.9 (10.0-12.5) sec INR 1.0 (<1.2) APTT 22.4 (22.0-30.0) sec Sodium 141 (137-145) mmol/L Potassium 4.3 (3.5-5.1) mmol/L Chloride 106 (98-107) mmol/L Carbon Dioxide 19 L (22-30) mmol/L Anion Gap 16 mmol/L BUN 11 (9-20) mg/dL Creatinine 1.29 H (0.66-1.25) mg/dL Est GFR (CKD-EPI)AfAm 73 (>60 ml/min/1.73 sqM) Est GFR (CKD-EPI)NonAf 63 (>60 ml/min/1.73 sqM) Glucose 179 H (74-99) mg/dL Calcium 9.2 (8.4-10.2) mg/dL Magnesium 1.7 (1.6-2.3) mg/dL Total Bilirubin 1.9 H (0.2-1.3) mg/dL AST 84 H (17-59) U/L ALT 41 (4-49) U/L Alkaline Phosphatase 127 H (38-126) U/L Total Protein 8.0 (6.3-8.2) g/dL Albumin 4.9 (3.5-5.0) g/dL Serum Alcohol <10 mg/dL Disposition Clinical Impression: AMS (altered mental status) Disposition: ADMITTED IP TO THIS HOSP Condition: Fair Referrals: Aries Ma MD [Primary Care Provider] - 1-2 days Decision Time: 02:39
[2023-09-12 00:54] LABS: ALT 41 U/L (4-49); AST 84 U/L (17-59); African American GFR (CKD) 73 (>60 ml/min/1.73 sqM); Albumin 4.9 g/dL (3.5-5.0); Alcohol <10 mg/dL; Alkaline Phosphatase 127 U/L (38-126); Anion Gap 16 mmol/L; Blood Urea Nitrogen 11 mg/dL (9-20); Calcium 9.2 mg/dL (8.4-10.2); Carbon Dioxide 19 mmol/L (22-30); Chloride 106 mmol/L (98-107); Glucose 179 mg/dL (74-99); Magnesium 1.7 mg/dL (1.6-2.3); Non-African American GFR(CKD) 63 (>60 ml/min/1.73 sqM); Potassium 4.3 mmol/L (3.5-5.1); Sodium 141 mmol/L (137-145); Total Bilirubin 1.9 mg/dL (0.2-1.3)
[2023-09-12 01:04] LABS: Partial Thromboplastin Time 22.4 sec (22.0-30.0); Prothrombin Time 10.9 sec (10.0-12.5)
--- NOTE | 2023-09-12 02:16 | CT ---
EXAM: CT Head Without Intravenous Contrast CLINICAL HISTORY: ITS.REASON CT Reason: fall, ams TECHNIQUE: Axial computed tomography images of the head/brain without intravenous contrast. CTDI is 45.3 mGy and DLP is 1010 mGy-cm. This CT exam was performed using one or more of the following dose reduction techniques: automated exposure control, adjustment of the mA and/or kV according to patient size, and/or use of iterative reconstruction technique. COMPARISON: No relevant prior studies available. FINDINGS: Brain: No hemorrhage or mass effect. Basal ganglia calcification. Benign calcifications in the right periventricular white matter. Senescent changes. Ventricles: No hydrocephalus. Bones/joints: Unremarkable. Soft tissues: Unremarkable. Sinuses: No air fluid level. Mastoid air cells: Clear. IMPRESSION: No acute hemorrhage, hydrocephalus, or mass effect. EXAM: CT Cervical Spine Without Intravenous Contrast CLINICAL HISTORY: ITS.REASON CT Reason: fall, ams TECHNIQUE: Axial computed tomography images of the cervical spine without intravenous contrast. CTDI is 6.5 mGy and DLP is 181.9 mGy-cm. This CT exam was performed using one or more of the following dose reduction techniques: automated exposure control, adjustment of the mA and/or kV according to patient size, and/or use of iterative reconstruction technique. COMPARISON: No relevant prior studies available. FINDINGS: Vertebrae: No acute fracture. Discs/spinal canal/neural foramina: degenerative changes. Soft tissues: No prevertebral swelling. IMPRESSION: No acute fracture or subluxation.
[2023-09-12] MEDS ORDERED: NALOXONE 0.4 MG/ML 1 ML VIAL IV PRN (02:39)
[2023-09-12] MEDS: THIAMINE 100 MG/ML 2 ML VIAL IM STA (03:10)
[2023-09-12] MEDS: SODIUM CHLORIDE 0.9% 1,000 ML IV SCH (03:11)
[2023-09-12] MEDS: LORazepam 2 MG/ML INJ IV PRN ×2 (03:18→09:43)
[2023-09-12 03:46] LABS: Anisocytosis (M) Present; Poikilocytosis (M) Present
[2023-09-12 04:17] LABS: Lactic Acid, Venous 1.3 mmol/L (0.7-2.0)
[2023-09-12] MEDS ORDERED: CLOTRIMAZOLE 1% CREAM 30 GM TUBE TOPICAL PRN (11:12)
[2023-09-12] MEDS ORDERED: HYDROCORTISONE 2.5% RECTAL CREAM 30 GM TUBE TOPICAL PRN (11:12)
--- NOTE | 2023-09-12 11:21 | P.HPIM ---
History of Present Illness H&P Date: 09/12/23 Marco Antonio South, is a 53 year-old male who presented to [facility] emergency room with a chief complaint of altered mental status changes according to records patient was last seen normal approximately 3 PM yesterday patient unable to call family at bedside most history is obtained from medical record. According to records mother noticed patient was pacing around the house. Patient does abuse alcohol with last noted alcohol intake over 24 hours. He was evaluated in the emergency room vital examination on presentation revealed temperature 97.4, heart rate 68, respiratory rate 18, blood pressure 143/81 with pulse ox 98% on room air Laboratory data reveals serum alcohol less than 10, total bilirubin 9, AST 84, ALT 41, alkaline phosphatase 127. Creatinine 1.29 bun 11, hemoglobin 14.4, WBC 4.3 Testing in the emergency room revealed head and cervical CT completed showing no acute hemorrhage hydrocephalus or mass effect no acute fracture or subluxation Patient was admitted to medical floor for further evaluation and treatment Past medical history is significant for EtOH, seizures, depression, anxiety, CVA, hypertension, hyperlipidemia, thyroid disorder. On review of systems patient is sitting comfortably in bed does appear to have tremors likely secondary from alcohol withdrawal. Patient does answer questions but unable to recall events from yesterday. At this time patient will be admitted neurology services have been consulted. Patient denies chest pain or s hortness breath. Patient denies nausea vomiting or diarrhea. Patient denies any urinary burning or frequency Review of Systems Please refer to HPI otherwise unremarkable Past Medical History Past Medical History: Chest Pain / Angina, CVA/TIA, Hyperlipidemia, Hypertension, Seizure Disorder, Supraventricular Tachycardia (SVT), Syncope, Thyroid Disorder Additional Past Medical History / Comment(s): Pt states he had a small stroke in the past but no deficits, SVT with ablation, atach, acute encephalopath ies/altered mental status associated with alcohol consumption, ETOH, hypothyroid, diverticular disease, chronic low back pain/spasms, last seizure possibly . History of Any Multi-Drug Resistant Organisms: None Reported Past Surgical History: Cardiac Ablation, Heart Catheterization Additional Past Surgical History / Comment(s): Cardiac ablation for SVT, tilt table test, stress test 2017, heart cath 2017, colonoscopy.. Past Anesthesia/Blood Transfusion Reactions: No Reported Reaction Additional Past Anesthesia/Blood Transfusion Reaction / Comment(s): Pt has never had transfusion. Past Psychological History: No Psychological Hx Reported, Anxiety, Depression, Panic Disorder Smoking Status: Never smoker Past Alcohol Use History: Daily Past Drug Use History: None Reported - Past Family History Mother History Unknown: Yes Family Medical History: Musculoskeletal Disorder, Neurologic Disorder Additional Family Medical History / Comment(s): MS. Mother is living. Father History Unknown: Yes Additional Family Medical History / Comment(s): BREATHING PROBLEMS-never goes to the doctor. Father is living. Medications and Allergies Home Medications Medication Instructions Recorded Confirmed Type allopurinoL [Zyloprim] 100 mg PO DAILY #30 tab 06/21/18 09/12/23 Rx Metoprolol Succinate [Toprol XL] 25 mg PO BID 12/24/19 09/12/23 History lisinopriL [Zestril] 2.5 mg PO DAILY 12/24/19 09/12/23 History Lacosamide [Vimpat] 200 mg PO BID 12/11/20 09/12/23 History lamoTRIgine [LaMICtal] 25 mg PO BID 30 Days #60 tab 08/26/21 09/12/23 Rx Hydrocortisone Oint 1 applic TOPICAL BID PRN 09/12/23 09/12/23 History [Hydrocortisone 2.5% Oint] Ketoconazole 2% Cream [Nizoral 2%] 1 applic TOPICAL BID PRN 09/12/23 09/12/23 History Levothyroxine Sodium [Synthroid] 75 mcg PO DAILY 09/12/23 09/12/23 History Mirtazapine 15 mg PO HS 09/12/23 09/12/23 History Primidone [Mysoline] 50 mg PO DAILY 09/12/23 09/12/23 History busPIRone HCl [Buspar] 10 mg PO BID 09/12/23 09/12/23 History Allergies Allergy/AdvReac Type Severity Reaction Status Date / Time amoxicillin Allergy Rash/Hives Verified 09/12/23 10:12 Sulfa (Sulfonamide Allergy Rash/Hives Verified 09/12/23 10:12 Antibiotics) Physical Exam Vitals: Vital Signs Temp Pulse Resp BP Pulse Ox 09/12/23 07:23 52 L 16 116/77 99 09/12/23 06:00 52 L 18 110/62 100 09/12/23 04:00 57 L 18 112/68 100 09/12/23 03:15 92 20 137/61 100 09/12/23 01:30 60 18 104/59 99 09/12/23 00:13 97.4 F L 68 18 143/81 98 Intake and Output 09/11/23 09/12/23 09/12/23 22:59 06:59 14:59 Other: Weight 49.895 kg In general patient is alert and oriented x 3 in no distress HEENT head normocephalic and atraumatic Neck is supple no JVD no goiter no lymphadenopathy no carotid bruit Chest examination is clear to auscultation no crackles no wheezing Cardiac exam reveals regular heart sounds S1 and S2 no gallops no murmurs Abdomen is soft nontender no organomegaly with normal bowel sounds Extremity exam reveals no edema no cyanosis or clubbing Neurological examination reveals no gross focal deficits Results CBC & Chem 7: 09/12/23 00:31 09/12/23 00:31 Labs: Abnormal Lab Results - Last 24 Hours (Table) 09/12/23 09/12/23 Range/Units 00:31 00:31 RBC 4.25 L (4.30-5.90) m/uL MCV 108.5 H (80.0-100.0) fL RDW 15.6 H (11.5-15.5) % Macrocytosis Marked A Carbon Dioxide 19 L (22-30) mmol/L Creatinine 1.29 H (0.66-1.25) mg/dL Glucose 179 H (74-99) mg/dL Total Bilirubin 1.9 H (0.2-1.3) mg/dL AST 84 H (17-59) U/L Alkaline Phosphatase 127 H (38-126) U/L Assessment and Plan Assessment: 1. Altered mental status changes 2. History of EtOH 3. History of seizure disorder 4. Questionable medical compliance 5. History of stroke 6. History of psychosis 7. History of gout 8. History of essential hypertension 9. History of hyperlipidemia 10. History of depression and anxiety DVT prophylaxis heparin. GI prophylaxis Pepcid Neurology services consulted NISHANTOR nehemiah initiated repeat labs ordered Time with Patient: Greater than 30 (Greater than 60% of the total time spent in counseling and coordination of care)
--- NOTE | 2023-09-12 12:59 | P.CNNES ---
History of Present Illness Consult date: 09/12/23 Requesting physician: Smith Brown Reason for Consult: ams History of Present Illness: This is a 53-year-old gentleman with history of seizures, stroke, alcohol use who presented emergency department because of altered mental status. History is obtained from medical record. Per medical records seems the patient presented with altered mental status and the patient was last normal 3 PM yesterday. It seems that the mother noticed that the patient was pacing around the house. His last alcohol use was over 24 hours. Patient is on Vimpat 200 mg twice a day as well as Lamictal 25 mg twice a day. Per one of the nurses aide she stated that the patient the was sleeping and the but is seems to be the getting more around after waking up. It seems that the patient received Ativan. Patient received 2 mg Ativan in the ED and is getting Ativan per [facility] protocol. Patient is known to our neurology service in the past and was last seen the by Dr. Chakraborty on 08/25/21 for altered mental status and on in his note he stated rule out post ictal state rule out medication overdose at. It seems that the patient had multiple EEGs in the past one of him was prolonged and no seizures noted. Patient is on Vimpat 200 mg twice a day as well as Lamictal 25 mg twice a day. Please refer to our note for further details. Some of the work-up during this hospital visit consisted of: Serum glucose is 179. Plasma-Lyte acid vein is 1.3. Sodium is 141, AST of 84 ALTs of 41, ammonia is less than 9 Alcohol level is less than 10 CT head is reported as no acute the hemorrhage, hydrocephalus or mass effect. I personally reviewed the CT and agreed as no acute subacute stroke. There is no large encephalomalacia. It seems the patient has hyperintensity over the bilateral basal ganglia which is seen on prior CTs. Seems more calcification. CT cervical spine is reported as no acute fracture or subluxation. Review of Systems Review of systems Limited but positive and negative as per HPI. Past Medical History Past Medical History: Chest Pain / Angina, CVA/TIA, Hyperlipidemia, Hypertension, Seizure Disorder, Supraventricular Tachycardia (SVT), Syncope, T hyroid Disorder Additional Past Medical History / Comment(s): Pt states he had a small stroke in the past but no deficits, SVT with ablation, atach, acute encephalopathies/alt ered mental status associated with alcohol consumption, ETOH, hypothyroid, diverticular disease, chronic low back pain/spasms, last seizure possibly . History of Any Multi-Drug Resistant Organisms: None Reported Past Surgical History: Cardiac Ablation, Heart Catheterization Additional Past Surgical History / Comment(s): Cardiac ablation for SVT, tilt table test, stress test 2017, heart cath 2017, colonoscopy.. Past Anesthesia/Blood Transfusion Reactions: No Reported Reaction Additional Past Anesthesia/Blood Transfusion Reaction / Comment(s): Pt has never had transfusion. Past Psychological History: No Psychological Hx Reported, Anxiety, Depression, Panic Disorder Smoking Status: Never smoker Past Alcohol Use History: Daily Past Drug Use History: None Reported - Past Family History Mother History Unknown: Yes Family Medical History: Musculoskeletal Disorder, Neurologic Disorder Additional Family Medical History / Comment(s): MS. Mother is living. Father History Unknown: Yes Additional Family Medical History / Comment(s): BREATHING PROBLEMS-never goes to the doctor. Father is living. Medications and Allergies Home Medications Medication Instructions Recorded Confirmed Type allopurinoL [Zyloprim] 100 mg PO DAILY #30 tab 06/21/18 09/12/23 Rx Metoprolol Succinate [Toprol XL] 25 mg PO BID 12/24/19 09/12/23 History lisinopriL [Zestril] 2.5 mg PO DAILY 12/24/19 09/12/23 History Lacosamide [Vimpat] 200 mg PO BID 12/11/20 09/12/23 History lamoTRIgine [LaMICtal] 25 mg PO BID 30 Days #60 tab 08/26/21 09/12/23 Rx Hydrocortisone Oint 1 applic TOPICAL BID PRN 09/12/23 09/12/23 History [Hydrocortisone 2.5% Oint] Ketoconazole 2% Cream [Nizoral 2%] 1 applic TOPICAL BID PRN 09/12/23 09/12/23 History Levothyroxine Sodium [Synthroid] 75 mcg PO DAILY 09/12/23 09/12/23 History Mirtazapine 15 mg PO HS 09/12/23 09/12/23 History Primidone [Mysoline] 50 mg PO DAILY 09/12/23 09/12/23 History busPIRone HCl [Buspar] 10 mg PO BID 09/12/23 09/12/23 History Allergies Allergy/AdvReac Type Severity Reaction Status Date / Time amoxicillin Allergy Rash/Hives Verified 09/12/23 10:12 Sulfa (Sulfonamide Allergy Rash/Hives Verified 09/12/23 10:12 Antibiotics) Physical Examination - Vital Signs Vital Signs: Vital Signs Temp Pulse Resp BP Pulse Ox 09/12/23 12:00 95 18 150/110 95 09/12/23 07:23 52 L 16 116/77 99 09/12/23 06:00 52 L 18 110/62 100 09/12/23 04:00 57 L 18 112/68 100 09/12/23 03:15 92 20 137/61 100 09/12/23 01:30 60 18 104/59 99 09/12/23 00:13 97.4 F L 68 18 143/81 98 Intake and Output 09/11/23 09/12/23 09/12/23 22:59 06:59 14:59 Other: Weight 49.895 kg General: Lying in bed and does not appear in acute distress. Seems more agitated and restless. Neuro: Limited. Patient is oriented to self only. Correctly stated the current state. Otherwise followed few simple commands (closing and opening eyes and stuck tongue out). Language is very limited. Primary gaze is midline. Pupils are 3-4mm and reactive to light. No facial weakness. Motor: Hard to assess individual muscle strength. Moving uppers above gravity spontaneously. Results - Laboratory Findings CBC and BMP: 09/12/23 00:31 09/12/23 00:31 Abnormal Lab Findings: Abnormal Labs 09/12/23 09/12/23 00:31 00:31 RBC 4.25 L MCV 108.5 H RDW 15.6 H Macrocytosis Marked A Carbon Dioxide 19 L Creatinine 1.29 H Glucose 179 H Total Bilirubin 1.9 H AST 84 H Alkaline Phosphatase 127 H Assessment and Plan Assessment: This is a 53-year-old gentleman with history of seizure, psychosis requiring admission to the mental health in the past, alcohol use who presents because of altered mental status. It is reported that his last alcohol use was about 24 hours prior to presenting to the hospital. Altered mental status of unclear etiology at this time. Rule out breakthrough seizure and is in post-ictal state versus alcohol withdrawal History of seizures and patient has multiple eeg's and prolonged eeg and is negative for seizure or discharges. Hypothyroidism Cardiomyopathy status post cardiac ablation History of stroke this remote over the right basal ganglia History of psychosis requiring admission mental health in the past Anxiety and depression Alcohol use Plan: Patient had multiple EEGs in the past including a prolonged EEG and were negative for any seizure discharges. I ordered a routine EEG. Patient is resumed on his home medication of the Vimpat 200 mg twice a day as well as the Lamictal 25 mg twice a day Patient is on thiamine 100 mg daily Patient is on Ativan per [place] protocol seizure precaution and pad. We'll defer the rest of the medical management to primary and other specialists The plan is discussed with primary team N.P. Thank you for the consultation Time with Patient: Greater than 30
[2023-09-12] MEDS: DEXMEDETOMIDINE/0.9% NACL(PMX) 400 MCG in EMPTY BAG 1 BAG IV SCH (19:44)
[2023-09-12] MEDS ORDERED: NON FORMULARY DRUG (Lacosamide [Vimpat] 200 MG Tablet) PO SCH (21:00)
[2023-09-12] MEDS: HEPARIN SODIUM,PORCINE 5,000 UNIT/ML 1 ML VIAL SQ SCH (22:28)
[2023-09-12] MEDS: busPIRone HCl 10 MG TAB PO SCH (22:28)
[2023-09-12] MEDS: LACOSAMIDE 150 MG TABLET PO SCH (22:29)
[2023-09-12] MEDS: lamoTRIgine 25 MG TAB PO SCH (22:29)
[2023-09-12] MEDS: MIRTAZAPINE 15 MG TAB PO SCH (22:29)
[2023-09-12] MEDS: METOPROLOL SUCCINATE (ER) 25 MG TAB.ER.24H PO SCH (22:29)
[2023-09-12] MEDS: LACOSAMIDE 50 MG TABLET PO SCH (22:29)
--- NOTE | 2023-09-13 01:48 | EEG ---
ELECTROENCEPHALOGRAM REPORT CLINICAL HISTORY: This is a 53-year-old gentleman with history of seizure, alcohol use, who presents to the emergency department because of altered mental status. The video EEG is obtained to evaluate for seizure epileptiform activity. RELEVANT MEDICATIONS: 1. Vimpat. 2. Lamictal. 3. Ativan. EEG TYPE: A routine 21-channel EEG with video using the 10/20 electrode placement system. DESCRIPTION: The background consists of [id number] voltage of 5.5 to 6.5 hertz activity at times intermixed with delta activity. There is no physiological stage 2 sleep architecture. There is no focal slowing. There is significant myogenic artifact over the bilateral temporal, left more than the right. Interictal and ictal is none. ACTIVATION PROCEDURE: Photic stimulation and hyperventilation are not performed. DESCRIPTION: This is an abnormal routine EEG. The background slowing is suggestive of moderate encephalopathy. Otherwise, there is no focal slowing, epileptiform discharge, or seizure on the EEG. There is significant myogenic artifact over the bilateral temporal region. Clinical correlation is recommended. MMMARGARITA / SILVINAN: [id number] / ZAINAB
--- NOTE | 2023-09-13 03:10 | P.CNPUL ---
History of Present Illness Consult date: 09/13/23 Requesting physician: Aries Ma Reason for consult: other (Altered mental status, suspected alcohol withdrawal delirium tremens) Chief complaint: Altered mental status History of present illness: I am seeing this patient in new consultation today 09/13/2023 in the emergency room for suspected alcohol withdrawal delirium tremens with high CIWA despite multiple doses of benzodiazepines. Patient was ultimately placed on a Precedex infusion, and will be admitted to the intensive care unit once bed available. Patient is a 53-year-old white male with past medical history significant for alcoholism, seizure disorder, CVA/TIA, hypertension, hyperlipidemia, SVT with previous ablation, syncope, hypothyroidism. Patient is currently unresponsive and unable to provide any information. History was taken from the medical record. Patient was brought into the emergency room early in the morning yesterday, mostly for altered mental status. Patient reportedly resides with his mother. He is an alcoholic. Last reported drink was 24 to 48 hours ago. He was last seen acting normal around 3 PM the day before yesterday. Per the ER note, the patient was observed pacing in the house. He was confused and this progressively worsened. While in the emergency room, he was severely agitated/restless, and last recorded CIWA score was 21. He received multiple doses of benzodiazepines including 15 mg of Valium and 9 mg of Ativan. He was then placed on a Precedex infusion, which is currently infusing at 0.4 mcg/kg/h. He is unresponsive at the moment. This is being weaned down. No reported seizure activity. No witnessed vomiting or aspiration. He is maintained on Vimpat and Lamictal outpatient. He did reportedly have a fall at home, he has an abrasion on his left forehead. CT of the head and C-spine did not show any acute fracture or subluxation. No intracranial hemorrhage or mass effect. Follow-up EEG shows diffuse background slowing suggestive of moderate encephalopathy. No epileptiform discharge or seizure-like activity. Patient has been evaluated by neurology. CBC on arrival unremarkable. There is some macrocytosis. BMP on arrival includes a sodium 141, potassium 4.3, chloride 106, serum bicarb 19, BUN 11, creatinine 1.29, glucose 179. Normal saline is infusing at 130 MLS per hour. Lactic acid level 1.3. LFTs mildly elevated. Serum alcohol less than 10. No urine drug screen has been completed. Currently on room air. SpO2 95%. Blood pressure normotensive. Heart rhythm appears normal sinus on bedside monitor, around 90 bpm. Overall, vital signs are stable. Review of Systems ROS unobtainable: due to mental status Past Medical History Past Medical History: Chest Pain / Angina, CVA/TIA, Hyperlipidemia, Hypertension, Seizure Disorder, Supraventricular Tachycardia (SVT), Syncope, Thyroid Disorder Additional Past Medical History / Comment(s): Pt states he had a small stroke in the past but no deficits, SVT with ablation, atach, acute ence phalopathies/altered mental status associated with alcohol consumption, ETOH, hypothyroid, diverticular disease, chronic low back pain/spasms, last seizure possibly . History of Any Multi-Drug Resistant Organisms: None Reported Past Surgical History: Cardiac Ablation, Heart Catheterization Additional Past Surgical History / Comment(s): Cardiac ablation for SVT, tilt table test, stress test 2017, heart cath 2017, colonoscopy.. Past Anesthesia/Blood Transfusion Reactions: No Reported Reaction Additional Past Anesthesia/Blood Transfusion Reaction / Comment(s): Pt has never had transfusion. Past Psychological History: No Psychological Hx Reported, Anxiety, Depression, Panic Disorder Smoking Status: Never smoker Past Alcohol Use History: Daily Past Drug Use History: None Reported - Past Family History Mother History Unknown: Yes Family Medical History: Musculoskeletal Disorder, Neurologic Disorder Additional Family Medical History / Comment(s): MS. Mother is living. Father History Unknown: Yes Additional Family Medical History / Comment(s): BREATHING PROBLEMS-never goes to the doctor. Father is living. Medications and Allergies Home Medications Medication Instructions Recorded Confirmed Type allopurinoL [Zyloprim] 100 mg PO DAILY #30 tab 06/21/18 09/12/23 Rx Metoprolol Succinate [Toprol XL] 25 mg PO BID 12/24/19 09/12/23 History lisinopriL [Zestril] 2.5 mg PO DAILY 12/24/19 09/12/23 History Lacosamide [Vimpat] 200 mg PO BID 12/11/20 09/12/23 History lamoTRIgine [LaMICtal] 25 mg PO BID 30 Days #60 tab 08/26/21 09/12/23 Rx Hydrocortisone Oint 1 applic TOPICAL BID PRN 09/12/23 09/12/23 History [Hydrocortisone 2.5% Oint] Ketoconazole 2% Cream [Nizoral 2%] 1 applic TOPICAL BID PRN 09/12/23 09/12/23 History Levothyroxine Sodium [Synthroid] 75 mcg PO DAILY 09/12/23 09/12/23 History Mirtazapine 15 mg PO HS 09/12/23 09/12/23 History Primidone [Mysoline] 50 mg PO DAILY 09/12/23 09/12/23 History busPIRone HCl [Buspar] 10 mg PO BID 09/12/23 09/12/23 History Allergies Allergy/AdvReac Type Severity Reaction Status Date / Time amoxicillin Allergy Rash/Hives Verified 09/12/23 10:12 Sulfa (Sulfonamide Allergy Rash/Hives Verified 09/12/23 10:12 Antibiotics) Physical Exam Vitals: Vital Signs Pulse Resp BP Pulse Ox 09/12/23 22:00 95 24 107/68 95 09/12/23 21:15 95 28 H 132/87 95 09/12/23 20:00 110 H 26 H 09/12/23 19:05 117 H 22 135/85 94 L 09/12/23 18:13 100 20 111/70 96 09/12/23 17:03 117/73 09/12/23 16:00 111 H 20 105/85 95 09/12/23 12:00 95 18 150/110 95 09/12/23 07:23 52 L 16 116/77 99 09/12/23 06:00 52 L 18 110/62 100 09/12/23 04:00 57 L 18 112/68 100 09/12/23 03:15 92 20 137/61 100 Intake and Output 09/12/23 09/12/23 09/13/23 14:59 22:59 06:59 Intake Total 27.319 14.327 Balance 27.319 14.327 Intake: Intake, IV Titration 27.319 14.327 Amount Dexmedetomidine/0.9% NaCl 27.319 14.327 (Pmx) 400 mcg In Empty Bag 1 bag @ 0.2 MCG/KG/HR 2.495 mls/hr IV .Q24H FOR[facility]LY [facility], [facility] Rx#:[id number] GENERAL EXAM: Unresponsive, even to deep painful stimuli, lying in a Semi- Lemus's position, Precedex is currently infusing. Appears older than stated age. Short stature. HEAD: Normocephalic. Abrasion on left forehead EYES: Normal reaction of pupils, equal size. NOSE: Clear with pink turbinates. THROAT: No erythema or exudates. Edentulous, dry mucous membranes NECK: No masses, no JVD. CHEST: No chest wall deformity. LUNGS: Equal air entry with no crackles, wheeze, rhonchi or dullness. On room air. SpO2 95%. No conversational dyspnea or accessory muscle use.. CVS: S1 and S2 normal with no audible murmur, regular rhythm. No extra heart so unds ABDOMEN: No hepatosplenomegaly, active bowel sounds, no guarding or rigidity. SPINE: No scoliosis or deformity SKIN: No rashes CENTRAL NERVOUS SYSTEM: Unresponsive, pupils are responsive to light and equal, no obvious facial asymmetry, all extremities are flaccid, patellar DTRs are 1+ bilaterally. No tremors. No seizure activity. Exam is limited by sedation. EXTREMITIES: There is no peripheral edema, clubbing, or cyanosis. Peripheral pulses are intact. Results - Laboratory Findings CBC and BMP: 09/12/23 00:31 09/12/23 00:31 PT/INR, D-dimer PT 10.9 sec (10.0-12.5) 09/12/23 00:31 INR 1.0 (<1.2) 09/12/23 00:31 Abnormal lab findings: Abnormal Labs 09/12/23 09/12/23 00:31 00:31 RBC 4.25 L MCV 108.5 H RDW 15.6 H Macrocytosis Marked A Carbon Dioxide 19 L Creatinine 1.29 H Glucose 179 H Total Bilirubin 1.9 H AST 84 H Alkaline Phosphatase 127 H Assessment and Plan Assessment: Acute alcohol withdrawal delirium tremens, last reported drink 24 to 48 hours ago. On arrival, patient was having high CIWA scores, last recorded was 21, despite multiple doses of benzodiazepines. He was ultimately started on a Precedex infusion, and will be admitted to the intensive care unit once bed available. Fall, with abrasion to left forehead, CT of the head and C-spine did not show any acute fracture or subluxation. No intracranial hemorrhage or mass effect. Follow-up EEG shows diffuse background slowing suggestive of moderate encephalopathy. No epileptiform discharge or seizure-like activity. Patient has been evaluated by neurology. Acute kidney injury, likely secondary to reduced oral intake and severe dehydration History of alcoholism History of seizure disorder History of CVA/TIA History of hypertension History of hyperlipidemia History of SVT with previous ablation History of syncope History of hypothyroidism History of anxiety and depression Plan: Patient's medications and labs were reviewed Continue CIWA protocol. Patient was ultimately started on a Precedex infusion, which is currently being weaned down, as the patient is sedated at the moment. No reported seizure-like activity. EEG consistent with moderate encephalopathy. No epileptiform discharge or seizure-like activity reported. Patient's home antiepileptic medications have been restarted. Continue seizure precautions. Continue aspiration precautions. Check urine drug screen Vitamin B1 supplementation Pepcid for GI prophylaxis Heparin for DVT prophylaxis Patient will be admitted to the intensive care unit once bed available. I have personally seen and examined the patient, performed the documentation and the assessment and plan as written. Number of minutes spent on the visit:20 Time with Patient: Greater than 30
[2023-09-13 04:02] LABS: Anisocytosis Slight; Basophils % (A) 0 %; Eosinophils % (A) 1 %; HCT 34.1 % (39.0-53.0); Lymphocytes # (A) 1.1 k/uL (1.0-4.8); Lymphocytes % (A) 25 %; MCH 34.8 pg (25.0-35.0); MCHC 32.3 g/dL (31.0-37.0); MCV 107.9 fL (80.0-100.0); Macrocytosis Marked; Mean Platelet Volume 8.3; Monocytes # (A) 0.2 k/uL (0-1.0); Monocytes % (A) 6 %; Neutrophils # (A) 2.9 k/uL (1.3-7.7); Neutrophils % (A) 67 %; Platelet Count 106 k/uL (150-450); RBC 3.16 m/uL (4.30-5.90); WBC 4.3 k/uL (3.8-10.6)
[2023-09-13 04:23] LABS: ALT 29 U/L (4-49); AST 57 U/L (17-59); African American GFR (CKD) >90 (>60 ml/min/1.73 sqM); Albumin 3.5 g/dL (3.5-5.0); Alkaline Phosphatase 83 U/L (38-126); Anion Gap 6 mmol/L; Blood Urea Nitrogen 6 mg/dL (9-20); Calcium 7.7 mg/dL (8.4-10.2); Carbon Dioxide 20 mmol/L (22-30); Chloride 115 mmol/L (98-107); Glucose 81 mg/dL (74-99); Non-African American GFR(CKD) >90 (>60 ml/min/1.73 sqM); Potassium 3.5 mmol/L (3.5-5.1); Sodium 141 mmol/L (137-145); Total Protein 5.9 g/dL (6.3-8.2)
[2023-09-13] MEDS: allopurinoL 100 MG TAB PO SCH (10:25)
[2023-09-13] MEDS: THIAMINE 100 MG TAB PO SCH (10:25)
[2023-09-13] MEDS: LEVOTHYROXINE 75 MCG TAB PO SCH (10:25)
[2023-09-13] MEDS: FAMOTIDINE 20 MG TAB PO SCH (10:25)
[2023-09-13] MEDS: HALOPERIDOL LACTATE 5 MG/ML 1 ML VIAL IVP PRN (11:18)
[2023-09-13] MEDS: PRIMIDONE 50 MG TAB PO SCH (11:50)
--- NOTE | 2023-09-13 17:39 | P.PN ---
Subjective Progress Note Date: 09/13/23 Marco Antonio South, is a 53 year-old male who presented to [facility] emergency room with a chief complaint of altered mental status changes according to records patient was last seen normal approximately 3 PM yesterday patient unable to call family at bedside most history is obtained from medical record. According to records mother noticed patient was pacing around the house. Patient does abuse alcohol with last noted alcohol intake over 24 hours. He was evaluated in the emergency room vital examination on presentation revealed temperature 97.4, heart rate 68, respiratory rate 18, blood pressure 143/81 with pulse ox 98% on room air Laboratory data reveals serum alcohol less than 10, total bilirubin 9, AST 84, ALT 41, alkaline phosphatase 127. Creatinine 1.29 bun 11, hemoglobin 14.4, WBC 4.3 Testing in the emergency room revealed head and cervical CT completed showing no acute hemorrhage hydrocephalus or mass effect no acute fracture or subluxation Patient was admitted to medical floor for further evaluation and treatment On 09/13/2023 patient was seen and examined in the ICU, he is sedated, not responsive at this time, yesterday he had episodes of severe agitation, he r eceived multiple doses of Ativan and Valium without significant improvement, he was subsequently transferred to intensive care unit and was started on a Precedex infusion. Objective - Vital Signs Vital signs: Vital Signs Temp 97.4 F L 09/12/23 00:13 Pulse 72 09/13/23 06:00 Resp 25 H 09/13/23 06:00 BP 135/74 09/13/23 06:00 Pulse Ox 96 09/13/23 06:00 FiO2 Intake & Output 09/12/23 09/13/23 09/13/23 18:59 06:59 18:59 Intake Total 81.792 Balance 81.792 Intake: Intake, IV Titration 81.792 Amount Dexmedetomidine/0.9% NaCl 81.792 (Pmx) 400 mcg In Empty Bag 1 bag @ 0.2 MCG/KG/HR 2.495 mls/hr IV .Q24H [facility] Rx#:[id number] - Exam In general patient is sedated HEENT head normocephalic and atraumatic Neck is supple no JVD no goiter no lymphadenopathy no carotid bruit Chest examination is clear to auscultation no crackles no wheezing Cardiac exam reveals regular heart sounds S1 and S2 no gallops no murmurs Abdomen is soft nontender no organomegaly with normal bowel sounds Extremity exam reveals no edema no cyanosis or clubbing Neurological examination reveals no gross focal deficits - Labs CBC & Chem 7: 09/13/23 03:27 09/13/23 03:27 Labs: Abnormal Lab Results - Last 24 Hours (Table) 09/13/23 09/13/23 Range/Units 03: 03:27 RBC 3.16 L (4.30-5.90) m/uL Hgb 11.0 L D (13.0-17.5) gm/dL Hct 34.1 L (39.0-53.0) % MCV 107.9 H (80.0-100.0) fL RDW 16.0 H (11.5-15.5) % Plt Count 106 L (150-450) k/uL Macrocytosis Marked A Chloride 115 H (98-107) mmol/L Carbon Dioxide 20 L (22-30) mmol/L BUN 6 L (9-20) mg/dL Calcium 7.7 L (8.4-10.2) mg/dL Total Protein 5.9 L (6.3-8.2) g/dL Assessment and Plan Assessment: 1. Altered mental status changes 2. History of EtOH 3. History of seizure disorder 4. Questionable medical compliance 5. History of stroke 6. History of psychosis 7. History of gout 8. History of essential hypertension 9. History of hyperlipidemia 10. History of depression and anxiety DVT prophylaxis heparin. GI prophylaxis Pepcid Neurology services consulted [facility] initiated repeat labs ordered
[2023-09-13 19:05] LABS: Urine Alcohol Negative (Negative); Urine Barbiturate Negative (Negative); Urine Cocaine Negative (Negative); Urine Methadone Negative (Negative); Urine Opiates Negative (Negative); Urine Phencyclidine Negative (Negative)
[2023-09-13] MEDS: HYDROmorphone 0.5 MG/0.5 ML SYRINGE IVP PRN (22:15)
[2023-09-14 04:58] LABS: HCT 32.4 % (39.0-53.0); HGB 10.3 gm/dL (13.0-17.5); MCH 34.5 pg (25.0-35.0); MCHC 31.7 g/dL (31.0-37.0); MCV 108.7 fL (80.0-100.0); Mean Platelet Volume 7.8; Platelet Count 101 k/uL (150-450); RBC 2.98 m/uL (4.30-5.90); RDW 15.8 % (11.5-15.5); WBC 3.8 k/uL (3.8-10.6)
[2023-09-14 05:12] LABS: African American GFR (CKD) >90 (>60 ml/min/1.73 sqM); Anion Gap 9 mmol/L; Blood Urea Nitrogen 5 mg/dL (9-20); Calcium 6.8 mg/dL (8.4-10.2); Carbon Dioxide 15 mmol/L (22-30); Chloride 117 mmol/L (98-107); Non-African American GFR(CKD) >90 (>60 ml/min/1.73 sqM); Potassium 3.3 mmol/L (3.5-5.1); Sodium 141 mmol/L (137-145)
[2023-09-14 05:17] LABS: Macrocytosis Marked
[2023-09-14 06:15] LABS: Glucose 44 mg/dL (74-99)
[2023-09-14 06:19] LABS: Glucose,Whole Blood 52 mg/dL (70-110)
[2023-09-14 06:39] LABS: Glucose,Whole Blood 61 mg/dL (70-110)
[2023-09-14 07:02] LABS: Glucose,Whole Blood 74 mg/dL (70-110)
[2023-09-14] MEDS ORDERED: Potassium Replacement Protocol 1 EACH MISC MISCELLANE PRN (07:57)
--- NOTE | 2023-09-14 09:28 | P.PN ---
Subjective Progress Note Date: 09/14/23 Marco Antonio South, is a 53 year-old male who presented to [facility] emergency room with a chief complaint of altered mental status changes according to records patient was last seen normal approximately 3 PM yesterday patient unable to call family at bedside most history is obtained from medical record. According to records mother noticed patient was pacing around the house. Patient does abuse alcohol with last noted alcohol intake over 24 hours. He was evaluated in the emergency room vital examination on presentation revealed temperature 97.4, heart rate 68, respiratory rate 18, blood pressure 143/81 with pulse ox 98% on room air Laboratory data reveals serum alcohol less than 10, total bilirubin 9, AST 84, ALT 41, alkaline phosphatase 127. Creatinine 1.29 bun 11, hemoglobin 14.4, WBC 4.3 Testing in the emergency room revealed head and cervical CT completed showing no acute hemorrhage hydrocephalus or mass effect no acute fracture or subluxation Patient was admitted to medical floor for further evaluation and treatment On 09/13/2023 patient was seen and examined in the ICU, he is sedated, not responsive at this time, yesterday he had episodes of severe agitation, he r eceived multiple doses of Ativan and Valium without significant improvement, he was subsequently transferred to intensive care unit and was started on a Precedex infusion. on 09/14/2023 patient is alert but confused. Patient remains in the intensive care unit in restraints. Patient remains on alcohol withdrawal protocol.temp 97.3, heart rate 59, respiratory rate 18, blood pressure 123/84 with a pulse ox of 96% on room air. Neurology and critical care service is following Dr. Rubin's group will be covering 09/15/2023 thru 09/24/2023 Objective - Vital Signs Vital signs: Vital Signs Temp 97.3 F L 09/14/23 04:00 Pulse 72 09/14/23 07:00 Resp 8 L 09/14/23 07:00 BP 109/69 09/14/23 07:00 Pulse Ox 96 09/14/23 04:00 FiO2 Intake & Output 09/13/23 09/14/23 09/14/23 18:59 06:59 18:59 Intake Total 1283.591 5463.675 130 Output Total 850 685 40 Balance 326.596 8813.675 90 Weight 49.895 kg 52.2 kg Intake: IV 1490 1690 130 Invasive Line 1 30 Invasive Line 2 30 Sodium Chloride 0.9% 1, 1430 1690 130 000 ml @ 130 mls/hr IV . Q7H42M FITO Rx#:[id number] Intake, IV Titration 94.135 145.675 Amount Dexmedetomidine/0.9% NaCl 94.135 145.675 (Pmx) 400 mcg In Empty Bag 1 bag @ 0.2 MCG/KG/HR 2.495 mls/hr IV .Q24H FITO Rx#:[id number] Output: Urine 850 685 40 Other: Voiding Method Indwelling Catheter Indwelling Catheter # Bowel Movements 0 0 - Exam In general patient is sedated HEENT head normocephalic and atraumatic Neck is supple no JVD no goiter no lymphadenopathy no carotid bruit Chest examination is clear to auscultation no crackles no wheezing Cardiac exam reveals regular heart sounds S1 and S2 no gallops no murmurs Abdomen is soft nontender no organomegaly with normal bowel sounds Extremity exam reveals no edema no cyanosis or clubbing Neurological confused and agitated alcohol withdrawal - Labs CBC & Chem 7: 09/14/23 04:25 09/14/23 04:25 Labs: Abnormal Lab Results - Last 24 Hours (Table) 09/13/23 09/14/23 09/14/23 Range/Units 12:43 04:25 04:25 RBC 2.98 L (4.30-5.90) m/uL Hgb 10.3 L (13.0-17.5) gm/dL Hct 32.4 L (39.0-53.0) % MCV 108.7 H (80.0-100.0) fL RDW 15.8 H (11.5-15.5) % Plt Count 101 L (150-450) k/uL Macrocytosis Marked A Potassium 3.3 L (3.5-5.1) mmol/L Chloride 117 H (98-107) mmol/L Carbon Dioxide 15 L (22-30) mmol/L BUN 5 L (9-20) mg/dL Glucose 44 L* (74-99) mg/dL POC Glucose (mg/dL) (70-110) mg/dL Calcium 6.8 L (8.4-10.2) mg/dL U Benzodiazepines Scrn Positive A (Negative) 09/14/23 09/14/23 Range/Units 06:17 06:37 RBC (4.30-5.90) m/uL Hgb (13.0-17.5) gm/dL Hct (39.0-53.0) % MCV (80.0-100.0) fL RDW (11.5-15.5) % Plt Count (150-450) k/uL Macrocytosis Potassium (3.5-5.1) mmol/L Chloride (98-107) mmol/L Carbon Dioxide (22-30) mmol/L BUN (9-20) mg/dL Glucose (74-99) mg/dL POC Glucose (mg/dL) 52 L 61 L (70-110) mg/dL Calcium (8.4-10.2) mg/dL U Benzodiazepines Scrn (Negative) Assessment and Plan Assessment: 1. Altered mental status changes 2. History of EtOH 3. History of seizure disorder 4. Questionable medical compliance 5. History of stroke 6. History of psychosis 7. History of gout 8. History of essential hypertension 9. History of hyperlipidemia 10. History of depression and anxiety DVT prophylaxis heparin. GI prophylaxis Pepcid patient currently in the intensive care unit Neurology services consulted critical care service is following patient currently on Precedex drip CIWA protocal initiated repeat labs ordered
[2023-09-14] MEDS: POTASSIUM BICARBONATE/CIT AC 20 MEQ TABLET.EFF NG-TUBE SCH ×2 (09:56→23:54)
[2023-09-14] MEDS: DEXTROSE 5%-0.45% NACL 1,000 ML IV SCH (10:07)
[2023-09-14 11:39] LABS: Glucose,Whole Blood 111 mg/dL (70-110)
--- NOTE | 2023-09-14 12:21 | P.PN ---
Subjective Progress Note Date: 09/14/23 I am following-up with patient and per the nurse he was agitated and restless to overnight nurse. He has restraints on. Objective - Vital Signs Vital signs: Vital Signs Temp 97.3 F L 09/14/23 04:00 Pulse 64 09/14/23 11:00 Resp 13 09/14/23 11:00 BP 122/84 09/14/23 11:00 Pulse Ox 97 09/14/23 11:00 FiO2 Intake & Output 09/13/23 09/14/23 09/14/23 18:59 06:59 18:59 Intake Total 5782.188 1714.675 597.266 Output Total 850 685 300 Balance 450.373 6885.675 297.266 Weight 49.895 kg 52.2 kg 52.2 kg Intake: IV 1490 1690 390 Invasive Line 1 30 Invasive Line 2 30 Sodium Chloride 0.9% 1, 1430 1690 390 000 ml @ 130 mls/hr IV . Q7H42M FITO Rx#:[id number] Intake, IV Titration 94.135 145.675 207.266 Amount Dexmedetomidine/0.9% NaCl 94.135 145.675 82.266 (Pmx) 400 mcg In Empty Bag 1 bag @ 0.2 MCG/KG/HR 2.495 mls/hr IV .Q24H FITO Rx#:[id number] Dextrose 5%-0.45% NaCl 1, 125 000 ml @ 125 mls/hr IV . Q8H FITO Rx#:[id number] Output: Urine 850 685 300 Other: Voiding Method Indwelling Catheter Indwelling Catheter # Bowel Movements 0 0 - Exam General: Lying in bed and was sleeping and does not seem in acute distress. Neuro: Was sleeping and upon waking him up he was agitated and restless. Not following commands. He repeatedly stated "what do you want?". No facial weakness. Motor: Unable to assess but lifting uppers above gravity with limitation of restraints. Some of the work-up during this hospital visit consisted of: Serum glucose is 179. Plasma-Lyte acid vein is 1.3. Sodium is 141, AST of 84 ALTs of 41, ammonia is less than 9 Most recent serum glucose is 44 Alcohol level is less than 10 CT head is reported as no acute the hemorrhage, hydrocephalus or mass effect. I personally reviewed the CT and agreed as no acute subacute stroke. There is no large encephalomalacia. It seems the patient has hyperintensity over the bilateral basal ganglia which is seen on prior CTs. Seems more calcification. CT cervical spine is reported as no acute fracture or subluxation. Routine EEG is abnormal. The background slowing is suggestive of moderate encephalopathy. Otherwise, there is no focal slowing, epileptiform discharge or seizure on the EEG. There is significant artifact over bilateral temporal region. - Labs CBC & Chem 7: 09/14/23 04:25 09/14/23 04:25 Labs: Abnormal Lab Results - Last 24 Hours (Table) 09/13/23 09/14/23 09/14/23 Range/Units 12:43 04:25 04:25 RBC 2.98 L (4.30-5.90) m/uL Hgb 10.3 L (13.0-17.5) gm/dL Hct 32.4 L (39.0-53.0) % MCV 108.7 H (80.0-100.0) fL RDW 15.8 H (11.5-15.5) % Plt Count 101 L (150-450) k/uL Macrocytosis Marked A Potassium 3.3 L (3.5-5.1) mmol/L Chloride 117 H (98-107) mmol/L Carbon Dioxide 15 L (22-30) mmol/L BUN 5 L (9-20) mg/dL Glucose 44 L* (74-99) mg/dL POC Glucose (mg/dL) (70-110) mg/dL Calcium 6.8 L (8.4-10.2) mg/dL U Benzodiazepines Scrn Positive A (Negative) 09/14/23 09/14/23 09/14/23 Range/Units 06:17 06:37 11:38 RBC (4.30-5.90) m/uL Hgb (13.0-17.5) gm/dL Hct (39.0-53.0) % MCV (80.0-100.0) fL RDW (11.5-15.5) % Plt Count (150-450) k/uL Macrocytosis Potassium (3.5-5.1) mmol/L Chloride (98-107) mmol/L Carbon Dioxide (22-30) mmol/L BUN (9-20) mg/dL Glucose (74-99) mg/dL POC Glucose (mg/dL) 52 L 61 L 111 H (70-110) mg/dL Calcium (8.4-10.2) mg/dL U Benzodiazepines Scrn (Negative) Assessment and Plan Assessment: This is a 53-year-old gentleman with history of seizure, psychosis requiring admission to the mental health in the past, alcohol use who presents because of altered mental status. It is reported that his last alcohol use was about 24 hours prior to presenting to the hospital. Delirium due to hypoglycemia and hospital induced. No seizure on EEG History of seizures and patient has multiple eeg's and prolonged eeg and is negative for seizure or discharges. Hypoglycemia (as low as 44) Hypothyroidism Cardiomyopathy status post cardiac ablation History of stroke this remote over the right basal ganglia History of psychosis requiring admission mental health in the past Anxiety and depression Alcohol use Plan: Patient is resumed on his home medication of the Vimpat 200 mg twice a day as well as the Lamictal 25 mg twice a day Patient is on thiamine 100 mg daily Patient is on Ativan per CIWA protocol seizure precaution and pad. Patient is on Haldol PRN. I started him on Seroquel 25mg qhs. Can go up to 50mg qhs if needed. Please avoid hypoglycemia. We'll defer the rest of the medical management to primary and other specialists Will follow-up with patient sporadically. Time with Patient: Less than 30
--- NOTE | 2023-09-14 13:03 | P.PN ---
Subjective Progress Note Date: 09/14/23 Principal diagnosis: Acute alcohol withdrawal/acute delirium tremens I am seeing this patient in new consultation today 09/13/2023 in the emergency room for suspected alcohol withdrawal delirium tremens with high CIWA despite multiple doses of benzodiazepines. Patient was ultimately placed on a Precedex infusion, and will be admitted to the intensive care unit once bed available. Patient is a 53-year-old white male with past medical history significant for alcoholism, seizure disorder, CVA/TIA, hypertension, hyperlipidemia, SVT with previous ablation, syncope, hypothyroidism. Patient is currently unresponsive and unable to provide any information. History was taken from the medical record. Patient was brought into the emergency room early in the morning yesterday, mostly for altered mental status. Patient reportedly resides with his mother. He is an alcoholic. Last reported drink was 24 to 48 hours ago. He was last seen acting normal around 3 PM the day before yesterday. Per the ER note, the patient was observed pacing in the house. He was confused and this progressively worsened. While in the emergency room, he was severely agitated/restless, and last recorded CIWA score was 21. He received multiple doses of benzodiazepines including 15 mg of Valium and 9 mg of Ativan. He was then placed on a Precedex infusion, which is currently infusing at 0.4 mcg/kg/h. He is unresponsive at the moment. This is being weaned down. No reported seizure activity. No witnessed vomiting or aspiration. He is maintained on Vimpat and Lamictal outpatient. He did reportedly have a fall at home, he has an abrasion on his left forehead. CT of the head and C-spine did not show any acute fracture or subluxation. No intracranial hemorrhage or mass effect. Follow-up EEG shows diffuse background slowing suggestive of moderate encephalopathy. No epileptiform discharge or seizure-like activity. Patient has been evaluated by neurology. CBC on arrival unremarkable. There is some macrocytosis. BMP on arrival includes a sodium 141, potassium 4.3, chloride 106, serum bicarb 19, BUN 11, creatinine 1.29, glucose 179. Normal saline is infusing at 130 MLS per hour. Lactic acid level 1.3. LFTs mildly elevated. Serum alcohol less than 10. No urine drug screen has been completed. Currently on room air. SpO2 95%. Blood pressure normotensive. Heart rhythm appears normal sinus on bedside monitor, around 90 bpm. Overall, vital signs are stable. Patient was reevaluated today on 09/14/2023, remains on Precedex at 1.4 mcg/kg/h, still receiving intermittent doses of Ativan and Haldol last night. Today the patient is calm, seems to be less agitated, not in any distress. WBC count is 3.8 hemoglobin 10.3 basic metabolic profile is normal except for bicarb of 15 and potassium of 3.3. Blood sugar earlier this morning was 44, IV fluids changed to D5 4 5 today. Objective - Vital Signs Vital signs: Vital Signs Temp 98 F 09/14/23 12:00 Pulse 53 L 09/14/23 12:00 Resp 17 09/14/23 12:00 BP 110/80 09/14/23 12:00 Pulse Ox 98 09/14/23 12:00 FiO2 Intake & Output 09/13/23 09/14/23 09/14/23 18:59 06:59 18:59 Intake Total 9719.389 7881.675 747.266 Output Total 850 685 360 Balance 873.855 4909.675 387.266 Weight 49.895 kg 52.2 kg 52.2 kg Intake: IV 1490 1690 390 Invasive Line 1 30 Invasive Line 2 30 Sodium Chloride 0.9% 1, 1430 1690 390 000 ml @ 130 mls/hr IV . Q7H42M FITO Rx#:[id number] Intake, IV Titration 94.135 145.675 357.266 Amount Dexmedetomidine/0.9% NaCl 94.135 145.675 82.266 (Pmx) 400 mcg In Empty Bag 1 bag @ 0.2 MCG/KG/HR 2.495 mls/hr IV .Q24H FITO Rx#:[id number] Dextrose 5%-0.45% NaCl 1, 275 000 ml @ 125 mls/hr IV . Q8H FITO Rx#:[id number] Output: Urine 850 685 360 Other: Voiding Method Indwelling Catheter Indwelling Catheter # Bowel Movements 0 0 - Exam GENERAL EXAM: Revealed a 53-year-old white male in no distress HEAD: Normocephalic. Abrasion on left forehead EYES: Normal reaction of pupils, equal size. NOSE: Clear with pink turbinates. THROAT: No erythema or exudates. Edentulous, dry mucous membranes NECK: No masses, no JVD. CHEST: No chest wall deformity. LUNGS: Equal air entry with no crackles, wheeze, rhonchi or dullness. CVS: S1 and S2 normal with no audible murmur, regular rhythm. No extra heart sounds ABDOMEN: No hepatosplenomegaly, active bowel sounds, no guarding or rigidity. SPINE: No scoliosis or deformity SKIN: No rashes CENTRAL NERVOUS SYSTEM: Arousable, follows instructions but tends to fall asleep easily EXTREMITIES: No clubbing edema or cyanosis. - Labs CBC & Chem 7: 09/14/23 04:25 09/14/23 04:25 Labs: Abnormal Lab Results - Last 24 Hours (Table) 09/13/23 09/14/23 09/14/23 Range/Units 12:43 04:25 04:25 RBC 2.98 L (4.30-5.90) m/uL Hgb 10.3 L (13.0-17.5) gm/dL Hct 32.4 L (39.0-53.0) % MCV 108.7 H (80.0-100.0) fL RDW 15.8 H (11.5-15.5) % Plt Count 101 L (150-450) k/uL Macrocytosis Marked A Potassium 3.3 L (3.5-5.1) mmol/L Chloride 117 H (98-107) mmol/L Carbon Dioxide 15 L (22-30) mmol/L BUN 5 L (9-20) mg/dL Glucose 44 L* (74-99) mg/dL POC Glucose (mg/dL) (70-110) mg/dL Calcium 6.8 L (8.4-10.2) mg/dL U Benzodiazepines Scrn Positive A (Negative) 09/14/23 09/14/23 09/14/23 Range/Units 06:17 06:37 11:38 RBC (4.30-5.90) m/uL Hgb (13.0-17.5) gm/dL Hct (39.0-53.0) % MCV (80.0-100.0) fL RDW (11.5-15.5) % Plt Count (150-450) k/uL Macrocytosis Potassium (3.5-5.1) mmol/L Chloride (98-107) mmol/L Carbon Dioxide (22-30) mmol/L BUN (9-20) mg/dL Glucose (74-99) mg/dL POC Glucose (mg/dL) 52 L 61 L 111 H (70-110) mg/dL Calcium (8.4-10.2) mg/dL U Benzodiazepines Scrn (Negative) Assessment and Plan Assessment: Impression: Acute alcohol withdrawal delirium tremens, Fall, with abrasion to left forehead, CT of the head and C-spine did not show any acute fracture or subluxation. Acute kidney injury, likely secondary to reduced oral intake and severe deh ydration History of alcoholism History of seizure disorder History of CVA/TIA History of hypertension History of hyperlipidemia History of SVT with previous ablation History of syncope History of hypothyroidism History of anxiety and depression Recommendation: Continue to monitor in the ICU Continue CIWA protocol Continue Precedex Continue thiamine Continue GI and DVT prophylaxis Will continue to follow Time with Patient: Less than 30
[2023-09-14] MEDS: POTASSIUM CHLORIDE 10 MEQ in WATER FOR INJECTION 1 100ML.BAG IVPB SCH (15:50)
[2023-09-14 18:02] LABS: Glucose,Whole Blood 132 mg/dL (70-110)
--- NOTE | 2023-09-14 18:11 | CDI ---
Documentation Clarification Form Date: 09/14/2023 05:41:51 PM From: Ev Monet RN, CCDS Phone: [phone] Admit Date: 09/12/2023 02:41:00 AM Patient Name: Marco Antonio South Visit Number: [id number] Discharge Date: ATTENTION: The Clinical Documentation Specialists (CDI) and [facility] Coding Staff appreciate your assistance in clarifying documentation. Please respond to the clarification below the line at the bottom and electronically sign. The CDI & [facility] Coding staff will review the response and follow-up if needed. Please note: Queries are made part of the Legal Health Record. If you have any questions, please contact the author of this message via ITS. Dr. Aries Ma Your patient has the documented symptom of Altered Mental Status in the ED assessment and H/P and subsequent progress note. Additional clarification regarding the etiology/cause of this symptom is requested. History/Risk Factors: Angina, CVA/TIA, Hyperlipidemia, Hypertension, Seizure Disorder, Supraventricular Tachycardia (SVT), Syncope, Thyroid Disorder Clinical Indicators: 53-year-old male brought in by parents for altered mental status. Patient does abuse alcohol. Mother reports that last alcohol intake was over 24 hours ago. 09/11 Labs WBC 4.3, Creatinine 1.29, Glucose 179 09/12 Glucose 81 09/13 Glucose 44 09/11 VS: 143/81 68 18 97.4 98% RA Urine Drug Toxicology: Serum Alcohol <10. Benzodiazepines screen: Positive A CT Head: No acute hemorrhage. EEG: No seizure on EEG (per neurology progress note) Treatment: Vimpat 200MG BID Lamictal 25 MG PO BID Neuro checks pre protocol Ativan 1 MG IV Q 1 HR PRN CIWA protocol Haldol 4 MG IVP Q 4 HRS PRN Please clarify the etiology of the symptom of Altered Mental Status: [ ] Toxic Encephalopathy due to positive drug screen, Benzodiazepines [ ] Metabolic Encephalopathy due to Hypoglycemia (was 179 on admission and 44 on 09/14/23) [x ] Altered mental status due to alcohol withdrawal. [ ] Dementia (if know, specify Type and if with/without Behavioral Disturbance) [ ] Other condition (please specify) [ ] Unable to determine (Template Last Revised: July 2020) MTDD
[2023-09-14] MEDS: QUEtiapine 25 MG TAB PO SCH (20:36)
[2023-09-14 23:24] LABS: Glucose,Whole Blood 117 mg/dL (70-110)
[2023-09-15] MEDS: LORazepam 2 MG/ML INJ IV PRN (04:20)
[2023-09-15 05:54] LABS: Anisocytosis Slight; Basophils % (A) 0 %; Eosinophils # (A) 0.1 k/uL (0-0.7); Eosinophils % (A) 3 %; HCT 33.8 % (39.0-53.0); HGB 11.2 gm/dL (13.0-17.5); Lymphocytes # (A) 0.9 k/uL (1.0-4.8); Lymphocytes % (A) 25 %; MCH 35.1 pg (25.0-35.0); MCHC 33.1 g/dL (31.0-37.0); MCV 106.1 fL (80.0-100.0); Macrocytosis Moderate; Mean Platelet Volume 7.6; Monocytes # (A) 0.3 k/uL (0-1.0); Monocytes % (A) 7 %; Neutrophils # (A) 2.2 k/uL (1.3-7.7); Neutrophils % (A) 63 %; Platelet Count 105 k/uL (150-450); RBC 3.19 m/uL (4.30-5.90); RDW 16.3 % (11.5-15.5); WBC 3.6 k/uL (3.8-10.6)
[2023-09-15 06:41] LABS: ALT 21 U/L (4-49); AST 40 U/L (17-59); African American GFR (CKD) >90 (>60 ml/min/1.73 sqM); Albumin 2.7 g/dL (3.5-5.0); Alkaline Phosphatase 81 U/L (38-126); Anion Gap 5 mmol/L; Blood Urea Nitrogen <2 mg/dL (9-20); Calcium 7.3 mg/dL (8.4-10.2); Carbon Dioxide 20 mmol/L (22-30); Chloride 113 mmol/L (98-107); Glucose 113 mg/dL (74-99); Non-African American GFR(CKD) >90 (>60 ml/min/1.73 sqM); Potassium 3.3 mmol/L (3.5-5.1); Sodium 138 mmol/L (137-145); Total Bilirubin 0.8 mg/dL (0.2-1.3); Total Protein 5.1 g/dL (6.3-8.2)
[2023-09-15] MEDS: POTASSIUM BICARBONATE/CIT AC 20 MEQ TABLET.EFF NG-TUBE SCH (06:53)
[2023-09-15] MEDS: HALOPERIDOL LACTATE 5 MG/ML 1 ML VIAL IVP PRN (07:55)
[2023-09-15] MEDS: QUEtiapine 50 MG TAB PO SCH (09:09)
--- NOTE | 2023-09-15 11:50 | P.PN ---
Subjective Progress Note Date: 09/15/23 Principal diagnosis: Acute alcohol withdrawal/acute delirium tremens I am seeing this patient in new consultation today 09/13/2023 in the emergency room for suspected alcohol withdrawal delirium tremens with high CIWA despite multiple doses of benzodiazepines. Patient was ultimately placed on a Precedex infusion, and will be admitted to the intensive care unit once bed available. Patient is a 53-year-old white male with past medical history significant for alcoholism, seizure disorder, CVA/TIA, hypertension, hyperlipidemia, SVT with previous ablation, syncope, hypothyroidism. Patient is currently unresponsive and unable to provide any information. History was taken from the medical record. Patient was brought into the emergency room early in the morning yesterday, mostly for altered mental status. Patient reportedly resides with his mother. He is an alcoholic. Last reported drink was 24 to 48 hours ago. He was last seen acting normal around 3 PM the day before yesterday. Per the ER note, the patient was observed pacing in the house. He was confused and this progressively worsened. While in the emergency room, he was severely agitated/restless, and last recorded CIWA score was 21. He received multiple doses of benzodiazepines including 15 mg of Valium and 9 mg of Ativan. He was then placed on a Precedex infusion, which is currently infusing at 0.4 mcg/kg/h. He is unresponsive at the moment. This is being weaned down. No reported seizure activity. No witnessed vomiting or aspiration. He is maintained on Vimpat and Lamictal outpatient. He did reportedly have a fall at home, he has an abrasion on his left forehead. CT of the head and C-spine did not show any acute fracture or subluxation. No intracranial hemorrhage or mass effect. Follow-up EEG shows diffuse background slowing suggestive of moderate encephalopathy. No epileptiform discharge or seizure-like activity. Patient has been evaluated by neurology. CBC on arrival unremarkable. There is some macrocytosis. BMP on arrival includes a sodium 141, potassium 4.3, chloride 106, serum bicarb 19, BUN 11, creatinine 1.29, glucose 179. Normal saline is infusing at 130 MLS per hour. Lactic acid level 1.3. LFTs mildly elevated. Serum alcohol less than 10. No urine drug screen has been completed. Currently on room air. SpO2 95%. Blood pressure normotensive. Heart rhythm appears normal sinus on bedside monitor, around 90 bpm. Overall, vital signs are stable. Patient was reevaluated today on 09/14/2023, remains on Precedex at 1.4 mcg/kg/h, still receiving intermittent doses of Ativan and Haldol last night. Today the patient is calm, seems to be less agitated, not in any distress. WBC count is 3.8 hemoglobin 10.3 basic metabolic profile is normal except for bicarb of 15 and potassium of 3.3. Blood sugar earlier this morning was 44, IV fluids changed to D5 4 5 today. Reevaluate today on 09/15/23, patient is in the ICU, intermittently agitated still requiring Precedex which was increased earlier today from 0.4 to 0.8 mcg/kg/h. Fluids turned down to KVO, patient is still requiring intermittent Haldol and Ativan. And his Seroquel dose was increased today up to 50 mg twice daily. Considering his agitation and restlessness, patient is not quite ready to leave the ICU. CBC is relatively normal basic metabolic profile is normal renal profile is normal potassium is a bit low at 3.3 Objective - Vital Signs Vital signs: Vital Signs Temp 98.1 F 09/15/23 04:00 Pulse 61 09/15/23 11:00 Resp 16 09/15/23 11:00 BP 129/83 09/15/23 11:00 Pulse Ox 95 09/15/23 11:00 FiO2 96 09/15/23 10:00 Intake & Output 09/14/23 09/15/23 09/15/23 18:59 06:59 18:59 Intake Total 4772.868 6162.976 504.553 Output Total 785 2155 1175 Balance 1084.325 -729.024 -670.447 Weight 52.2 kg 52.2 kg Intake: IV 390 Sodium Chloride 0.9% 1, 390 000 ml @ 130 mls/hr IV . Q7H42M [facility] Rx#:[id number] Intake, IV Titration 8496.486 9664.976 354.553 Amount Dexmedetomidine/0.9% NaCl 154.325 50.976 44.553 (Pmx) 400 mcg In Empty Bag 1 bag @ 0.2 MCG/KG/HR 2.495 mls/hr IV .Q24H [facility] Rx#:[id number] Dextrose 5%-0.45% NaCl 1, 1125 1375 310 000 ml @ 20 mls/hr IV . Q24H [facility] Rx#:[id number] Potassium Chloride 10 meq 200 In Water For Injection 1 100ml.bag @ 100 mls/hr IVPB Q1H [facility] Rx#: [id number] Oral 150 Output: Urine 785 2155 1175 Other: Voiding Method Indwelling Catheter Indwelling Catheter Indwelling Catheter - Exam GENERAL EXAM: Revealed a 53-year-old white male in no distress HEAD: Normocephalic. Abrasion on left forehead EYES: Normal reaction of pupils, equal size. NOSE: Clear with pink turbinates. THROAT: No erythema or exudates. Edentulous, dry mucous membranes NECK: No masses, no JVD. CHEST: No chest wall deformity. LUNGS: Equal air entry with no crackles, wheeze, rhonchi or dullness. CVS: S1 and S2 normal with no audible murmur, regular rhythm. No extra heart sounds ABDOMEN: No hepatosplenomegaly, active bowel sounds, no guarding or rigidity. SPINE: No scoliosis or deformity SKIN: No rashes CENTRAL NERVOUS SYSTEM: Arousable, follows instructions but tends to fall asleep easily EXTREMITIES: No clubbing edema or cyanosis. - Labs CBC & Chem 7: 09/15/23 05:21 09/15/23 05:21 Labs: Abnormal Lab Results - Last 24 Hours (Table) 09/14/23 09/14/23 09/15/23 Range/Units 18:00 23:23 05:21 WBC 3.6 L (3.8-10.6) k/uL RBC 3.19 L (4.30-5.90) m/uL Hgb 11.2 L (13.0-17.5) gm/dL Hct 33.8 L (39.0-53.0) % MCV 106.1 H (80.0-100.0) fL MCH 35.1 H (25.0-35.0) pg RDW 16.3 H (11.5-15.5) % Plt Count 105 L (150-450) k/uL Lymphocytes # 0.9 L (1.0-4.8) k/uL Potassium (3.5-5.1) mmol/L Chloride (98-107) mmol/L Carbon Dioxide (22-30) mmol/L BUN (9-20) mg/dL Creatinine (0.66-1.25) mg/dL Glucose (74-99) mg/dL POC Glucose (mg/dL) 132 H 117 H (70-110) mg/dL Calcium (8.4-10.2) mg/dL Total Protein (6.3-8.2) g/dL Albumin (3.5-5.0) g/dL 09/15/23 Range/Units 05:21 WBC (3.8-10.6) k/uL RBC (4.30-5.90) m/uL Hgb (13.0-17.5) gm/dL Hct (39.0-53.0) % MCV (80.0-100.0) fL MCH (25.0-35.0) pg RDW (11.5-15.5) % Plt Count (150-450) k/uL Lymphocytes # (1.0-4.8) k/uL Potassium 3.3 L (3.5-5.1) mmol/L Chloride 113 H (98-107) mmol/L Carbon Dioxide 20 L (22-30) mmol/L BUN <2 L (9-20) mg/dL Creatinine 0.57 L (0.66-1.25) mg/dL Glucose 113 H (74-99) mg/dL POC Glucose (mg/dL) (70-110) mg/dL Calcium 7.3 L (8.4-10.2) mg/dL Total Protein 5.1 L (6.3-8.2) g/dL Albumin 2.7 L (3.5-5.0) g/dL Assessment and Plan Assessment: Impression: Acute alcohol withdrawal delirium tremens Fall, with abrasion to left forehead, Acute kidney injury, resolved History of alcoholism History of seizure disorder History of CVA/TIA History of hypertension History of hyperlipidemia History of SVT with previous ablation History of syncope History of hypothyroidism History of anxiety and depression Recommendation: Continue to monitor in the ICU Continue CIWA protocol Continue Precedex Continue thiamine Continue Ativan and Haldol Increase Seroquel to 50 mg. Twice daily Continue GI and DVT prophylaxis Will continue to follow Time with Patient: Less than 30
--- NOTE | 2023-09-15 14:15 | P.PN ---
Subjective Progress Note Date: 09/15/23 Marco Antonio South, is a 53 year-old male who presented to [facility] emergency room with a chief complaint of altered mental status changes according to records patient was last seen normal approximately 3 PM yesterday patient unable to call family at bedside most history is obtained from medical record. According to records mother noticed patient was pacing around the house. Patient does abuse alcohol with last noted alcohol intake over 24 hours. He was evaluated in the emergency room vital examination on presentation revealed temperature 97.4, heart rate 68, respiratory rate 18, blood pressure 143/81 with pulse ox 98% on room air Laboratory data reveals serum alcohol less than 10, total bilirubin 9, AST 84, ALT 41, alkaline phosphatase 127. Creatinine 1.29 bun 11, hemoglobin 14.4, WBC 4.3 Testing in the emergency room revealed head and cervical CT completed showing no acute hemorrhage hydrocephalus or mass effect no acute fracture or subluxation Patient was admitted to medical floor for further evaluation and treatment On 09/13/2023 patient was seen and examined in the ICU, he is sedated, not responsive at this time, yesterday he had episodes of severe agitation, he rec eived multiple doses of Ativan and Valium without significant improvement, he was subsequently transferred to intensive care unit and was started on a Precedex infusion. on 09/14/2023 patient is alert but confused. Patient remains in the intensive care unit in restraints. Patient remains on alcohol withdrawal protocol.temp 97.3, heart rate 59, respiratory rate 18, blood pressure 123/84 with a pulse ox of 96% on room air. Neurology and critical care service is following 09/14. Patient seen and examined. Patient currently sedated, currently on Precedex drip. Patient was agitated this morning. Lab work done this morning showed WBC 3.6, hemoglobin 11.2, platelet count 105, sodium 138, potassium 3.3, BUN 2, creatinine 0.57. REVIEW OF SYSTEMS: Review of system cannot be obtained as patient is currently obtunded PHYSICAL EXAMINATION: GENERAL: The patient is obtunded HEENT: Pupils are round and equally reacting to light. EOMI. No scleral icterus. No conjunctival pallor. Normocephalic, atraumatic. No pharyngeal erythema. No thyromegaly. CARDIOVASCULAR: S1 and S2 present. No murmurs, rubs, or gallops. PULMONARY: Chest is clear to auscultation, no wheezing or crackles. ABDOMEN: Soft, nontender, nondistended, normoactive bowel sounds. No palpable organomegaly. MUSCULOSKELETAL: No joint swelling or deformity. EXTREMITIES: No cyanosis, clubbing, or pedal edema. NEUROLOGICAL: Cannot be obtained as patient is sedated and obtunded SKIN: No rashes. Assessment and plan 1. Altered mental status changes 2. History of EtOH 3. History of seizure disorder 4. Questionable medical compliance 5. History of stroke 6. History of psychosis 7. History of gout 8. History of essential hypertension 9. History of hyperlipidemia 10. History of depression and anxiety Monitor vital signs Monitor CBC Monitor CMP Continue telemetry monitoring Continue restraints Fall precautions Continue high-dose thiamine and folic acid Continue CIWA protocol Continue IV Precedex drip Seroquel dose increased to 50 mg twice a day Continue Lopressor Continue lisinopril and Synthroid Continue Vimpat and Lamictal Critical care following Neurology following Labs and medication were reviewed.. Continue same treatment. Continue with symptomatic treatment. Resume home medication. Monitor labs and vitals. DVT and GI prophylaxis. Further recommendations as per clinical course of the yasmine kingsley Dictation was produced using [employer] dictation software. please excuse any grammatical, word or spelling errors. Objective - Vital Signs Vital signs: Vital Signs Temp 97.5 F L 09/15/23 12:00 Pulse 71 09/15/23 14:00 Resp 22 09/15/23 14:00 BP 125/82 09/15/23 14:00 Pulse Ox 98 09/15/23 14:00 FiO2 96 09/15/23 10:00 Intake & Output 09/14/23 09/15/23 09/15/23 18:59 06:59 18:59 Intake Total 0945.446 7169.976 567.505 Output Total 785 9565 1675 Balance 1084.325 -729.024 -1107.495 Weight 52.2 kg 52.2 kg Intake: IV 390 Sodium Chloride 0.9% 1, 390 000 ml @ 130 mls/hr IV . Q7H42M [facility] Rx#:[id number] Intake, IV Titration 4953.730 9141.976 417.505 Amount Dexmedetomidine/0.9% NaCl 154.325 50.976 67.505 (Pmx) 400 mcg In Empty Bag 1 bag @ 0.2 MCG/KG/HR 2.495 mls/hr IV .Q24H [facility] Rx#:[id number] Dextrose 5%-0.45% NaCl 1, 1125 1375 350 000 ml @ 20 mls/hr IV . Q24H [facility] Rx#:[id number] Potassium Chloride 10 meq 200 In Water For Injection 1 100ml.bag @ 100 mls/hr IVPB Q1H [facility] Rx#: [id number] Oral 150 Output: Urine 473 0131 1395 Other: Voiding Method Indwelling Catheter Indwelling Catheter Indwelling Catheter - Labs CBC & Chem 7: 09/15/23 05:21 09/15/23 05:21 Labs: Abnormal Lab Results - Last 24 Hours (Table) 09/14/23 09/14/23 09/15/23 Range/Units 18:00 23:23 05:21 WBC 3.6 L (3.8-10.6) k/uL RBC 3.19 L (4.30-5.90) m/uL Hgb 11.2 L (13.0-17.5) gm/dL Hct 33.8 L (39.0-53.0) % MCV 106.1 H (80.0-100.0) fL MCH 35.1 H (25.0-35.0) pg RDW 16.3 H (11.5-15.5) % Plt Count 105 L (150-450) k/uL Lymphocytes # 0.9 L (1.0-4.8) k/uL Potassium (3.5-5.1) mmol/L Chloride (98-107) mmol/L Carbon Dioxide (22-30) mmol/L BUN (9-20) mg/dL Creatinine (0.66-1.25) mg/dL Glucose (74-99) mg/dL POC Glucose (mg/dL) 132 H 117 H (70-110) mg/dL Calcium (8.4-10.2) mg/dL Total Protein (6.3-8.2) g/dL Albumin (3.5-5.0) g/dL 09/15/23 Range/Units 05:21 WBC (3.8-10.6) k/uL RBC (4.30-5.90) m/uL Hgb (13.0-17.5) gm/dL Hct (39.0-53.0) % MCV (80.0-100.0) fL MCH (25.0-35.0) pg RDW (11.5-15.5) % Plt Count (150-450) k/uL Lymphocytes # (1.0-4.8) k/uL Potassium 3.3 L (3.5-5.1) mmol/L Chloride 113 H (98-107) mmol/L Carbon Dioxide 20 L (22-30) mmol/L BUN <2 L (9-20) mg/dL Creatinine 0.57 L (0.66-1.25) mg/dL Glucose 113 H (74-99) mg/dL POC Glucose (mg/dL) (70-110) mg/dL Calcium 7.3 L (8.4-10.2) mg/dL Total Protein 5.1 L (6.3-8.2) g/dL Albumin 2.7 L (3.5-5.0) g/dL
[2023-09-15] MEDS: POTASSIUM CHLORIDE 10 MEQ in WATER FOR INJECTION 1 100ML.BAG IVPB SCH (14:20)
[2023-09-15] MEDS ORDERED: Potassium Replacement Protocol 1 EACH MISC MISCELLANE PRN (14:28)
[2023-09-16] MEDS: POTASSIUM CHLORIDE 10 MEQ in WATER FOR INJECTION 1 100ML.BAG IVPB SCH (01:35)
[2023-09-16 01:43] LABS: Glucose,Whole Blood 94 mg/dL (70-110)
[2023-09-16 04:19] LABS: Basophils % (A) 1 %; Eosinophils # (A) 0.1 k/uL (0-0.7); Eosinophils % (A) 4 %; HCT 35.2 % (39.0-53.0); HGB 11.8 gm/dL (13.0-17.5); Lymphocytes # (A) 0.9 k/uL (1.0-4.8); Lymphocytes % (A) 31 %; MCH 35.7 pg (25.0-35.0); MCHC 33.7 g/dL (31.0-37.0); MCV 106.1 fL (80.0-100.0); Macrocytosis Moderate; Mean Platelet Volume 7.5; Monocytes # (A) 0.2 k/uL (0-1.0); Monocytes % (A) 7 %; Neutrophils # (A) 1.6 k/uL (1.3-7.7); Neutrophils % (A) 56 %; Platelet Count 105 k/uL (150-450); RBC 3.32 m/uL (4.30-5.90); WBC 2.9 k/uL (3.8-10.6)
[2023-09-16 04:33] LABS: African American GFR (CKD) >90 (>60 ml/min/1.73 sqM); Blood Urea Nitrogen <2 mg/dL (9-20); Carbon Dioxide 27 mmol/L (22-30); Chloride 110 mmol/L (98-107); Glucose 87 mg/dL (74-99); Non-African American GFR(CKD) >90 (>60 ml/min/1.73 sqM)
[2023-09-16 04:35] LABS: Anion Gap 0 mmol/L; Sodium 137 mmol/L (137-145)
[2023-09-16] MEDS: QUEtiapine 50 MG TAB PO STA (09:46)
--- NOTE | 2023-09-16 11:58 | P.PN ---
Subjective Progress Note Date: 09/16/23 Principal diagnosis: Acute alcohol withdrawal/acute delirium tremens I am seeing this patient in new consultation today 09/13/2023 in the emergency room for suspected alcohol withdrawal delirium tremens with high CIWA despite multiple doses of benzodiazepines. Patient was ultimately placed on a Precedex infusion, and will be admitted to the intensive care unit once bed available. Patient is a 53-year-old white male with past medical history significant for alcoholism, seizure disorder, CVA/TIA, hypertension, hyperlipidemia, SVT with previous ablation, syncope, hypothyroidism. Patient is currently unresponsive and unable to provide any information. History was taken from the medical record. Patient was brought into the emergency room early in the morning yesterday, mostly for altered mental status. Patient reportedly resides with his mother. He is an alcoholic. Last reported drink was 24 to 48 hours ago. He was last seen acting normal around 3 PM the day before yesterday. Per the ER note, the patient was observed pacing in the house. He was confused and this progressively worsened. While in the emergency room, he was severely agitated/restless, and last recorded CIWA score was 21. He received multiple doses of benzodiazepines including 15 mg of Valium and 9 mg of Ativan. He was then placed on a Precedex infusion, which is currently infusing at 0.4 mcg/kg/h. He is unresponsive at the moment. This is being weaned down. No reported seizure activity. No witnessed vomiting or aspiration. He is maintained on Vimpat and Lamictal outpatient. He did reportedly have a fall at home, he has an abrasion on his left forehead. CT of the head and C-spine did not show any acute fracture or subluxation. No intracranial hemorrhage or mass effect. Follow-up EEG shows diffuse background slowing suggestive of moderate encephalopathy. No epileptiform discharge or seizure-like activity. Patient has been evaluated by neurology. CBC on arrival unremarkable. There is some macrocytosis. BMP on arrival includes a sodium 141, potassium 4.3, chloride 106, serum bicarb 19, BUN 11, creatinine 1.29, glucose 179. Normal saline is infusing at 130 MLS per hour. Lactic acid level 1.3. LFTs mildly elevated. Serum alcohol less than 10. No urine drug screen has been completed. Currently on room air. SpO2 95%. Blood pressure normotensive. Heart rhythm appears normal sinus on bedside monitor, around 90 bpm. Overall, vital signs are stable. Patient was reevaluated today on 09/14/2023, remains on Precedex at 1.4 mcg/kg/h, still receiving intermittent doses of Ativan and Haldol last night. Today the patient is calm, seems to be less agitated, not in any distress. WBC count is 3.8 hemoglobin 10.3 basic metabolic profile is normal except for bicarb of 15 and potassium of 3.3. Blood sugar earlier this morning was 44, IV fluids changed to D5 4 5 today. Reevaluate today on 09/15/23, patient is in the ICU, intermittently agitated still requiring Precedex which was increased earlier today from 0.4 to 0.8 mcg/kg/h. Fluids turned down to KVO, patient is still requiring intermittent Haldol and Ativan. And his Seroquel dose was increased today up to 50 mg twice daily. Considering his agitation and restlessness, patient is not quite ready to leave the ICU. CBC is relatively normal basic metabolic profile is normal renal profile is normal potassium is a bit low at 3.3 reevaluate today on 09/16/23, patient is still in the ICU, remains on Precedex at 0.6 mcg/kg/h, remains on D5 4 520 mL/h. Still requiring intermittently Haldol and Ativan and is still on Seroquel which was increased to 100 mg twice daily. Patient continues to have intermittent episodes of agitations requiring either Haldol or Ativan or both. WBC count today is 2.9 hemoglobin 11.8 basic metabolic profile is normal renal profile is normal Objective - Vital Signs Vital signs: Vital Signs Temp 98.7 F 09/16/23 08:00 Pulse 64 09/16/23 11:00 Resp 18 09/16/23 11:00 BP 113/81 09/16/23 11:00 Pulse Ox 100 09/16/23 11:00 FiO2 96 09/15/23 10:00 Intake & Output 09/15/23 09/16/23 09/16/23 18:59 06:59 18:59 Intake Total 1067.587 549.948 92.682 Output Total 2155 1270 700 Balance -1087.413 -720.052 -607.318 Weight 55.7 kg Intake: Intake, IV Titration 767.587 424.948 92.682 Amount Dexmedetomidine/0.9% NaCl 117.587 184.948 12.682 (Pmx) 400 mcg In Empty Bag 1 bag @ 0.2 MCG/KG/HR 2.495 mls/hr IV .Q24H [facility] Rx#:[id number] Dextrose 5%-0.45% NaCl 1, 450 240 80 000 ml @ 20 mls/hr IV . Q24H [facility] Rx#:[id number] Potassium Chloride 10 meq 200 In Water For Injection 1 100ml.bag @ 100 mls/hr IVPB Q1H [facility] Rx#: [id number] Oral 300 125 Output: Urine 2155 1270 700 Other: Voiding Method Indwelling Catheter Indwelling Catheter Indwelling Catheter # Bowel Movements 1 - Exam GENERAL EXAM: Revealed a 53-year-old white male in no distress HEAD: Normocephalic. Abrasion on left forehead EYES: Normal reaction of pupils, equal size. NOSE: Clear with pink turbinates. THROAT: No erythema or exudates. Edentulous, dry mucous membranes NECK: No masses, no JVD. CHEST: No chest wall deformity. LUNGS: Equal air entry with no crackles, wheeze, rhonchi or dullness. CVS: S1 and S2 normal with no audible murmur, regular rhythm. No extra heart sounds ABDOMEN: No hepatosplenomegaly, active bowel sounds, no guarding or rigidity. SPINE: No scoliosis or deformity SKIN: No rashes CENTRAL NERVOUS SYSTEM: Arousable, but confused EXTREMITIES: No clubbing edema or cyanosis. - Labs CBC & Chem 7: 09/16/23 04:08 09/16/23 04:08 Labs: Abnormal Lab Results - Last 24 Hours (Table) 09/16/23 09/16/23 Range/Units 04:08 04:08 WBC 2.9 L (3.8-10.6) k/uL RBC 3.32 L (4.30-5.90) m/uL Hgb 11.8 L (13.0-17.5) gm/dL Hct 35.2 L (39.0-53.0) % MCV 106.1 H (80.0-100.0) fL MCH 35.7 H (25.0-35.0) pg RDW 16.0 H (11.5-15.5) % Plt Count 105 L (150-450) k/uL Lymphocytes # 0.9 L (1.0-4.8) k/uL Chloride 110 H (98-107) mmol/L BUN <2 L (9-20) mg/dL Creatinine 0.56 L (0.66-1.25) mg/dL Calcium 8.0 L (8.4-10.2) mg/dL Assessment and Plan Assessment: Impression: Acute alcohol withdrawal delirium tremens Fall, with abrasion to left forehead, Acute kidney injury, resolved History of alcoholism History of seizure disorder History of CVA/TIA History of hypertension History of hyperlipidemia History of SVT with previous ablation History of syncope History of hypothyroidism History of anxiety and depression Recommendation: Continue to monitor in the ICU Continue CIWA protocol Continue Precedex Continue thiamine Continue Ativan and Haldol Increase Seroquel to 100 twice daily Continue GI and DVT prophylaxis Will continue to follow Time with Patient: Less than 30
--- NOTE | 2023-09-16 13:00 | P.PN ---
Subjective Progress Note Date: 09/16/23 Marco Antonio South, is a 53 year-old male who presented to [facility] emergency room with a chief complaint of altered mental status changes according to records patient was last seen normal approximately 3 PM yesterday patient unable to call family at bedside most history is obtained from medical record. According to records mother noticed patient was pacing around the house. Patient does abuse alcohol with last noted alcohol intake over 24 hours. He was evaluated in the emergency room vital examination on presentation revealed temperature 97.4, heart rate 68, respiratory rate 18, blood pressure 143/81 with pulse ox 98% on room air Laboratory data reveals serum alcohol less than 10, total bilirubin 9, AST 84, ALT 41, alkaline phosphatase 127. Creatinine 1.29 bun 11, hemoglobin 14.4, WBC 4.3 Testing in the emergency room revealed head and cervical CT completed showing no acute hemorrhage hydrocephalus or mass effect no acute fracture or subluxation Patient was admitted to medical floor for further evaluation and treatment On 09/13/2023 patient was seen and examined in the ICU, he is sedated, not responsive at this time, yesterday he had episodes of severe agitation, he rec eived multiple doses of Ativan and Valium without significant improvement, he was subsequently transferred to intensive care unit and was started on a Precedex infusion. on 09/14/2023 patient is alert but confused. Patient remains in the intensive care unit in restraints. Patient remains on alcohol withdrawal protocol.temp 97.3, heart rate 59, respiratory rate 18, blood pressure 123/84 with a pulse ox of 96% on room air. Neurology and critical care service is following 09/14. Patient seen and examined. Patient currently sedated, currently on Precedex drip. Patient was agitated this morning. Lab work done this morning showed WBC 3.6, hemoglobin 11.2, platelet count 105, sodium 138, potassium 3.3, BUN 2, creatinine 0.57. 09/15. Patient seen and examined. Continues to be on Precedex drip. Continues to be on CIWA protocol. Blood work done this morning showed WBC 2.9, hemoglobin 11.8, platelet count 105, sodium 137, potassium 4, BUN 2, creatinine 0.56. Patient continues to be agitated and irritable, currently in restraints. REVIEW OF SYSTEMS: Review of system cannot be obtained as patient is confused PHYSICAL EXAMINATION: GENERAL: The patient is obtunded HEENT: Pupils are round and equally reacting to light. EOMI. No scleral icterus. No conjunctival pallor. Normocephalic, atraumatic. No pharyngeal erythema. No thyromegaly. CARDIOVASCULAR: S1 and S2 present. No murmurs, rubs, or gallops. PULMONARY: Chest is clear to auscultation, no wheezing or crackles. ABDOMEN: Soft, nontender, nondistended, normoactive bowel sounds. No palpable organomegaly. MUSCULOSKELETAL: No joint swelling or deformity. EXTREMITIES: No cyanosis, clubbing, or pedal edema. NEUROLOGICAL: Cannot be obtained as patient is sedated and obtunded SKIN: No rashes. Assessment and plan 1. Altered mental status changes 2. History of EtOH 3. History of seizure disorder 4. Questionable medical compliance 5. History of stroke 6. History of psychosis 7. History of gout 8. History of essential hypertension 9. History of hyperlipidemia 10. History of depression and anxiety Monitor vital signs Monitor CBC Monitor CMP Continue telemetry monitoring Continue restraints Fall precautions Continue high-dose thiamine and folic acid Continue CIWA protocol Continue IV Precedex drip Continue Seroquel Continue Lopressor Continue lisinopril and Synthroid Continue Vimpat and Lamictal Critical care following Neurology following Labs and medication were reviewed.. Continue same treatment. Continue with symptomatic treatment. Resume home medication. Monitor labs and vitals. DVT and GI prophylaxis. Further recommendations as per clinical course of the patient Dictation was produced using [employer] dictation software. please excuse any grammatical, word or spelling errors. Objective - Vital Signs Vital signs: Vital Signs Temp 97.9 F 09/16/23 04:00 Pulse 52 L 09/16/23 07:00 Resp 17 09/16/23 07:00 BP 156/99 09/16/23 07:00 Pulse Ox 100 09/16/23 07:00 FiO2 96 09/15/23 10:00 Intake & Output 09/15/23 09/16/23 09/16/23 18:59 06:59 18:59 Intake Total 1067.587 549.948 12.682 Output Total 2155 1270 175 Balance -1087.413 -720.052 -162.318 Weight 55.7 kg Intake: Intake, IV Titration 767.587 424.948 12.682 Amount Dexmedetomidine/0.9% NaCl 117.587 184.948 12.682 (Pmx) 400 mcg In Empty Bag 1 bag @ 0.2 MCG/KG/HR 2.495 mls/hr IV .Q24H [facility] Rx#:[id number] Dextrose 5%-0.45% NaCl 1, 450 240 000 ml @ 20 mls/hr IV . Q24H [facility] Rx#:[id number] Potassium Chloride 10 meq 200 In Water For Injection 1 100ml.bag @ 100 mls/hr IVPB Q1H [facility] Rx#: [id number] Oral 300 125 Output: Urine 2155 1270 175 Other: Voiding Method Indwelling Catheter Indwelling Catheter # Bowel Movements 1 - Labs CBC & Chem 7: 09/16/23 04:08 09/16/23 04:08 Labs: Abnormal Lab Results - Last 24 Hours (Table) 09/16/23 09/16/23 Range/Units 04:08 04:08 WBC 2.9 L (3.8-10.6) k/uL RBC 3.32 L (4.30-5.90) m/uL Hgb 11.8 L (13.0-17.5) gm/dL Hct 35.2 L (39.0-53.0) % MCV 106.1 H (80.0-100.0) fL MCH 35.7 H (25.0-35.0) pg RDW 16.0 H (11.5-15.5) % Plt Count 105 L (150-450) k/uL Lymphocytes # 0.9 L (1.0-4.8) k/uL Chloride 110 H (98-107) mmol/L BUN <2 L (9-20) mg/dL Creatinine 0.56 L (0.66-1.25) mg/dL Calcium 8.0 L (8.4-10.2) mg/dL
[2023-09-16] MEDS: QUEtiapine 100 MG TAB PO SCH (19:42)
[2023-09-16 20:23] LABS: Glucose,Whole Blood 78 mg/dL (70-110)
[2023-09-17 03:59] LABS: Anisocytosis Slight; HCT 35.8 % (39.0-53.0); HGB 11.6 gm/dL (13.0-17.5); MCH 34.2 pg (25.0-35.0); MCHC 32.4 g/dL (31.0-37.0); MCV 105.6 fL (80.0-100.0); Macrocytosis Moderate; Mean Platelet Volume 7.9; Platelet Count 119 k/uL (150-450); RBC 3.38 m/uL (4.30-5.90); RDW 16.1 % (11.5-15.5); WBC 2.9 k/uL (3.8-10.6)
[2023-09-17 04:19] LABS: African American GFR (CKD) >90 (>60 ml/min/1.73 sqM); Anion Gap 3 mmol/L; Blood Urea Nitrogen 3 mg/dL (9-20); Calcium 8.7 mg/dL (8.4-10.2); Carbon Dioxide 30 mmol/L (22-30); Chloride 106 mmol/L (98-107); Glucose 93 mg/dL (74-99); Non-African American GFR(CKD) >90 (>60 ml/min/1.73 sqM); Potassium 3.6 mmol/L (3.5-5.1); Sodium 139 mmol/L (137-145)
[2023-09-17 04:24] LABS: Band Neutrophils % 3 %; Eosinophils # (M) 0.06 k/uL (0-0.7); Lymphocytes # (M) 0.84 k/uL (1.0-4.8); Monocytes # (M) 0.23 k/uL (0-1.0); Neutrophils % (M) 58 %; Nucleated Red Blood Cells 0 /100 WBC (0-0); Total Cells Counted 100
[2023-09-17] MEDS: POTASSIUM CHLORIDE ER 20 MEQ TAB.ER PO SCH (06:50)
[2023-09-17] MEDS: QUEtiapine 100 MG TAB PO SCH (08:59)
--- NOTE | 2023-09-17 11:41 | P.PN ---
Subjective Progress Note Date: 09/17/23 I am seeing this patient in new consultation today 09/13/2023 in the emergency room for suspected alcohol withdrawal delirium tremens with high CIWA despite multiple doses of benzodiazepines. Patient was ultimately placed on a Precedex infusion, and will be admitted to the intensive care unit once bed available. Patient is a 53-year-old white male with past medical history significant for alcoholism, seizure disorder, CVA/TIA, hypertension, hyperlipidemia, SVT with previous ablation, syncope, hypothyroidism. Patient is currently unresponsive and unable to provide any information. History was taken from the medical record. Patient was brought into the emergency room early in the morning yester day, mostly for altered mental status. Patient reportedly resides with his mother. He is an alcoholic. Last reported drink was 24 to 48 hours ago. He was last seen acting normal around 3 PM the day before yesterday. Per the ER note, the patient was observed pacing in the house. He was confused and this progressively worsened. While in the emergency room, he was severely agitated/restless, and last recorded CIWA score was 21. He received multiple doses of benzodiazepines including 15 mg of Valium and 9 mg of Ativan. He was then placed on a Precedex infusion, which is currently infusing at 0.4 mcg/kg/h. He is unresponsive at the moment. This is being weaned down. No reported seizure activity. No witnessed vomiting or aspiration. He is maintained on Vimpat and Lamictal outpatient. He did reportedly have a fall at home, he has an abrasion on his left forehead. CT of the head and C-spine did not show any acute fracture or subluxation. No intracranial hemorrhage or mass effect. Follow-up EEG shows diffuse background slowing suggestive of moderate encephalopathy. No epileptiform discharge or seizure-like activity. Patient has been evaluated by neurology. CBC on arrival unremarkable. There is some macrocytosis. BMP on arrival includes a sodium 141, potassium 4.3, chloride 106, serum bicarb 19, BUN 11, creatinine 1.29, glucose 179. Normal saline is infusing at 130 MLS per hour. Lactic acid level 1.3. LFTs mildly elevated. Serum alcohol less than 10. No urine drug screen has been completed. Currently on room air. SpO2 95%. Blood pressure normotensive. Heart rhythm appears normal sinus on bedside monitor, around 90 bpm. Overall, vital signs are stabl e. Patient was reevaluated today on 09/14/2023, remains on Precedex at 1.4 mcg/kg/h, still receiving intermittent doses of Ativan and Haldol last night. Today the patient is calm, seems to be less agitated, not in any distress. WBC count is 3.8 hemoglobin 10.3 basic metabolic profile is normal except for bicarb of 15 and potassium of 3.3. Blood sugar earlier this morning was 44, IV fluids macario ed to D5 4 5 today. Reevaluate today on 09/15/23, patient is in the ICU, intermittently agitated sti ll requiring Precedex which was increased earlier today from 0.4 to 0.8 mcg/kg/h. Fluids turned down to KVO, patient is still requiring intermittent Haldol and Ativan. And his Seroquel dose was increased today up to 50 mg twice daily. Considering his agitation and restlessness, patient is not quite ready to leave the ICU. CBC is relatively normal basic metabolic profile is normal renal profile is normal potassium is a bit low at 3.3 reevaluate today on 09/16/23, patient is still in the ICU, remains on Precedex at 0.6 mcg/kg/h, remains on D5 4 520 mL/h. Still requiring intermittently Haldol and Ativan and is still on Seroquel which was increased to 100 mg twice daily. Patient continues to have intermittent episodes of agitations requiring either Haldol or Ativan or both. WBC count today is 2.9 hemoglobin 11.8 basic metabolic profile is normal renal profile is normal The patient is seen today September 17, 2023 in follow-up in the intensive care unit. He is still having episodes of confusion and restlessness. He is currently on Precedex at 0.1 mcg/kg/h. He is also receiving intermittent Ativan and Dilaudid. He is on Seroquel. No seizure activity. He remains on Vimpat and La mictal. He has D5 and a half normal staying at 20 MLS per hour. White count 2.9. Hemoglobin 11.6. Platelets 119. Sodium 139. Potassium 3.6. Bicarb 30. BUN 3. Creatinine 0.68. Glucose 93. Objective - Vital Signs Vital signs: Vital Signs Temp 97.6 F 09/17/23 08:00 Pulse 61 09/17/23 11:00 Resp 15 09/17/23 11:00 BP 116/73 09/17/23 11:00 Pulse Ox 95 09/17/23 04:00 FiO2 96 09/15/23 10:00 Intake & Output 09/16/23 09/17/23 09/17/23 18:59 06:59 18:59 Intake Total 274.093 371.704 100.624 Output Total 2150 945 160 Balance -1875.907 -573.296 -59.376 Weight 51.4 kg 51.4 kg Intake: IV 220 100 Dextrose 5%-0.45% NaCl 1, 220 100 000 ml @ 20 mls/hr IV . Q24H [facility] Rx#:[id number] Intake, IV Titration 274.093 151.704 0.624 Amount Dexmedetomidine/0.9% NaCl 54.093 131.704 0.624 (Pmx) 400 mcg In Empty Bag 1 bag @ 0.2 MCG/KG/HR 2.495 mls/hr IV .Q24H [facility] Rx#:[id number] Dextrose 5%-0.45% NaCl 1, 220 20 000 ml @ 20 mls/hr IV . Q24H [facility] Rx#:[id number] Output: Urine 2150 945 160 Other: Voiding Method Indwelling Catheter Indwelling Catheter Indwelling Catheter # Bowel Movements 1 1 - Exam GENERAL EXAM: A confused, restless 53-year-old male, on room air, in no acute distress HEAD: Normocephalic. Abrasion on left forehead EYES: Normal reaction of pupils, equal size. NOSE: Clear with pink turbinates. THROAT: No erythema or exudates. Edentulous, dry mucous membranes NECK: No masses, no JVD. CHEST: No chest wall deformity. LUNGS: Equal air entry with no crackles, wheeze, rhonchi or dullness. CVS: S1 and S2 normal with no audible murmur, regular rhythm. No extra heart sounds ABDOMEN: No hepatosplenomegaly, active bowel sounds, no guarding or rigidity. SPINE: No scoliosis or deformity SKIN: No rashes CENTRAL NERVOUS SYSTEM: Arousable, but confused EXTREMITIES: No clubbing edema or cyanosis. - Labs CBC & Chem 7: 09/17/23 03:32 09/17/23 03:32 Labs: Abnormal Lab Results - Last 24 Hours (Table) 09/17/23 09/17/23 Range/Units 03:32 03:32 WBC 2.9 L (3.8-10.6) k/uL RBC 3.38 L (4.30-5.90) m/uL Hgb 11.6 L (13.0-17.5) gm/dL Hct 35.8 L (39.0-53.0) % MCV 105.6 H (80.0-100.0) fL RDW 16.1 H (11.5-15.5) % Plt Count 119 L (150-450) k/uL Lymphocytes # (Manual) 0.84 L (1.0-4.8) k/uL BUN 3 L (9-20) mg/dL Assessment and Plan Assessment: Acute alcohol withdrawal delirium tremens Fall, with abrasion to left forehead Acute kidney injury, resolved History of alcoholism History of seizure disorder History of CVA/TIA History of hypertension History of hyperlipidemia History of SVT with previous ablation History of syncope History of hypothyroidism History of anxiety and depression Plan: The patient was seen and evaluated Labs and medications reviewed Titrate down the Precedex infusion Increase Seroquel to 100 mg 3 times daily Utilize Haldol and Ativan as needed Continue on the CIWA protocol Currently stable and on room air We will continue to follow I have personally seen and examined the patient, performed the documentation and the assessment and plan as written. Number of minutes spent on the visit: 10.
--- NOTE | 2023-09-17 16:30 | P.PN ---
Subjective Progress Note Date: 09/17/23 Patient was initially seen by Dr. Maxwell Hooks. My service started from today. Please refer to his note for details. Patient is a 53-year-old male with history of seizure and alcohol use, who has altered mental status. Patient also has hypoglycemia. Patient was diagnosed with delirium. EEG revealed moderate encephalopathy but no epileptiform discharges. At present patient is laying in the bed. He has a [employer] vest restraint. He states he feels "same as always". Patient denies headache. Patient offers no complaints. Some of the work-up during this hospital visit consisted of: Serum glucose is 179. Plasma-Lyte acid vein is 1.3. Sodium is 141, AST of 84 ALTs of 41, ammonia is less than 9 Most recent serum glucose is 44 Alcohol level is less than 10 CT head is reported as no acute the hemorrhage, hydrocephalus or mass effect. I personally reviewed the CT and agreed as no acute subacute stroke. There is no large encephalomalacia. It seems the patient has hyperintensity over the rolando ateral basal ganglia which is seen on prior CTs. Seems more calcification. CT cervical spine is reported as no acute fracture or subluxation. Routine EEG is abnormal. The background slowing is suggestive of moderate encephalopathy. Otherwise, there is no focal slowing, epileptiform discharge or seizure on the EEG. There is significant artifact over bilateral temporal region. Objective - Vital Signs Vital signs: Vital Signs Temp 97.6 F 09/17/23 08:00 Pulse 98 09/17/23 15:00 Resp 18 09/17/23 15:00 BP 142/95 09/17/23 15:00 Pulse Ox 95 09/17/23 04:00 FiO2 96 09/15/23 10:00 Intake & Output 09/16/23 09/17/23 09/17/23 18:59 06:59 18:59 Intake Total 274.093 371.704 188.563 Output Total 2150 945 660 Balance -1875.907 -573.296 -471.437 Weight 51.4 kg 51.4 kg Intake: IV 220 180 Dextrose 5%-0.45% NaCl 1, 220 180 000 ml @ 20 mls/hr IV . Q24H [facility] Rx#:[id number] Intake, IV Titration 274.093 151.704 8.563 Amount Dexmedetomidine/0.9% NaCl 54.093 131.704 8.563 (Pmx) 400 mcg In Empty Bag 1 bag @ 0.2 MCG/KG/HR 2.495 mls/hr IV .Q24H [facility] Rx#:[id number] Dextrose 5%-0.45% NaCl 1, 220 20 000 ml @ 20 mls/hr IV . Q24H [facility] Rx#:[id number] Output: Urine 2150 945 660 Other: Voiding Method Indwelling Catheter Indwelling Catheter Indwelling Catheter # Bowel Movements 1 1 - Exam Patient is alert and awake, slightly encephalopathic. He states that his 09/12/2023. Patient knows that he is in [facility] imported on [place]. Speech and language functions are normal. He speaks with low volume. His face is symmetric. Patient's muscle strength is normal in the arms and legs. His both hands are in restraints. Sensations equal. Cerebellar functions cannot be checked. - Labs CBC & Chem 7: 09/17/23 03:32 09/17/23 03:32 Labs: Abnormal Lab Results - Last 24 Hours (Table) 09/17/23 09/17/23 Range/Units 03:32 03:32 WBC 2.9 L (3.8-10.6) k/uL RBC 3.38 L (4.30-5.90) m/uL Hgb 11.6 L (13.0-17.5) gm/dL Hct 35.8 L (39.0-53.0) % MCV 105.6 H (80.0-100.0) fL RDW 16.1 H (11.5-15.5) % Plt Count 119 L (150-450) k/uL Lymphocytes # (Manual) 0.84 L (1.0-4.8) k/uL BUN 3 L (9-20) mg/dL Assessment and Plan Assessment: This is a 53-year-old gentleman with history of seizure, psychosis requiring admission to the mental health in the past, alcohol use who presents because of altered mental status. It is reported that his last alcohol use was about 24 hours prior to presenting to the hospital. Delirium due to hypoglycemia and hospital induced. No seizure on EEG History of seizures and patient has multiple eeg's and prolonged eeg and is negative for seizure or discharges. Hypoglycemia (as low as 44) Macrocytic anemia, likely from alcoholism Hypothyroidism Cardiomyopathy status post cardiac ablation History of stroke this remote over the right basal ganglia History of psychosis requiring admission mental health in the past Anxiety and depression Alcohol use Plan: Patient is resumed on his home medication of the Vimpat 200 mg twice a day as well as the Lamictal 25 mg twice a day Patient is on thiamine 100 mg daily Patient is on Ativan per [facility] protocol seizure precaution and pad. Patient is on Haldol PRN. I started him on Seroquel 25mg qhs. Can go up to 50mg qhs if needed. Please avoid hypoglycemia. Check B12, folate level. We'll defer the rest of the medical management to primary and other specialists Continue supportive care.
[2023-09-18 04:15] LABS: Anisocytosis Slight; Basophils % (A) 1 %; Eosinophils # (A) 0.1 k/uL (0-0.7); Eosinophils % (A) 2 %; HCT 36.9 % (39.0-53.0); Hypochromasia Slight; Lymphocytes % (A) 30 %; MCH 35.6 pg (25.0-35.0); MCHC 32.5 g/dL (31.0-37.0); MCV 109.6 fL (80.0-100.0); Macrocytosis Marked; Mean Platelet Volume 7.6; Monocytes # (A) 0.4 k/uL (0-1.0); Monocytes % (A) 11 %; Neutrophils # (A) 1.7 k/uL (1.3-7.7); Neutrophils % (A) 52 %; Platelet Count 133 k/uL (150-450); RBC 3.37 m/uL (4.30-5.90); RDW 16.1 % (11.5-15.5); WBC 3.2 k/uL (3.8-10.6)
[2023-09-18 04:32] LABS: African American GFR (CKD) >90 (>60 ml/min/1.73 sqM); Anion Gap 6 mmol/L; Blood Urea Nitrogen 3 mg/dL (9-20); Calcium 8.8 mg/dL (8.4-10.2); Carbon Dioxide 26 mmol/L (22-30); Chloride 107 mmol/L (98-107); Glucose 73 mg/dL (74-99); Non-African American GFR(CKD) >90 (>60 ml/min/1.73 sqM); Potassium 3.8 mmol/L (3.5-5.1); Sodium 139 mmol/L (137-145)
[2023-09-18] MEDS: POTASSIUM CHLORIDE ER 20 MEQ TAB.ER PO SCH (06:37)
--- NOTE | 2023-09-18 08:07 | XR ---
EXAMINATION TYPE: XR chest 1V portable DATE OF EXAM: 09/18/2023 COMPARISON: 12/09/2020 INDICATION: CHF TECHNIQUE: Single frontal view of the chest is obtained. FINDINGS: The heart size is normal. Loop recorder is over the left chest. The pulmonary vasculature is normal. There is blunting of the left costophrenic angle. Atelectasis is favored. IMPRESSION: 1. Correlate for mild atelectasis at the left costophrenic angle.
--- NOTE | 2023-09-18 08:38 | PN ---
PROGRESS NOTE DATE OF SERVICE: 09/17/2023 This 53-year-old gentleman admitted with significant DTs, is on Precedex drip. The patient is sedated. The patient is also on Ativan and Haldol, so the patient will be closely monitored. The patient has abrasion also. No chest pain. No palpitation. White count is 2.9. The patient has some mild pancytopenia also. PAST MEDICAL HISTORY AND REVIEW OF SYSTEMS: Could not be taken. CURRENT MEDICATIONS: Reviewed and include Ativan, dose and rest of medications noted. PHYSICAL EXAMINATION: VITAL SIGNS: Pulse 105, blood pressure 142/90, respirations 15. HEENT: Conjunctivae normal. NECK: No jugular venous distention. CARDIOVASCULAR: in the bases. RESPIRATIONS: Scattered rhonchi. ABDOMEN: Soft. NERVOUS SYSTEM: examination could not be done completely. LABORATORY DATA: Noted. ASSESSMENT: 1. Acute delirium tremens. 2. Alcohol withdrawal. 3. History of EtOH. 4. History of seizure disorder. 5. History of stroke. 6. History of psychosis. 7. Mild pancytopenia, possibly secondary to EtOH. 8. Multiple complex medical issue. RECOMMENDATIONS AND DISCUSSION: Recommend to continue current management. Continue the increased Ativan and taper of Precedex drip and closely follow with Pulmonary. DVT prophylaxis. GI prophylaxis. Guarded prognosis. Further recommendations to follow. Supplement vitamins. Recommend to continue to monitor. MMRYANL / KORTNEY: [id number] /
--- NOTE | 2023-09-18 11:32 | P.PN ---
Subjective Progress Note Date: 09/18/23 I am seeing this patient in new consultation today 09/13/2023 in the emergency room for suspected alcohol withdrawal delirium tremens with high CIWA despite multiple doses of benzodiazepines. Patient was ultimately placed on a Precedex infusion, and will be admitted to the intensive care unit once bed available. Patient is a 53-year-old white male with past medical history significant for alcoholism, seizure disorder, CVA/TIA, hypertension, hyperlipidemia, SVT with previous ablation, syncope, hypothyroidism. Patient is currently unresponsive and unable to provide any information. History was taken from the medical record. Patient was brought into the emergency room early in the morning yester day, mostly for altered mental status. Patient reportedly resides with his mother. He is an alcoholic. Last reported drink was 24 to 48 hours ago. He was last seen acting normal around 3 PM the day before yesterday. Per the ER note, the patient was observed pacing in the house. He was confused and this progressively worsened. While in the emergency room, he was severely agitated/restless, and last recorded CIWA score was 21. He received multiple doses of benzodiazepines including 15 mg of Valium and 9 mg of Ativan. He was then placed on a Precedex infusion, which is currently infusing at 0.4 mcg/kg/h. He is unresponsive at the moment. This is being weaned down. No reported seizure activity. No witnessed vomiting or aspiration. He is maintained on Vimpat and Lamictal outpatient. He did reportedly have a fall at home, he has an abrasion on his left forehead. CT of the head and C-spine did not show any acute fracture or subluxation. No intracranial hemorrhage or mass effect. Follow-up EEG shows diffuse background slowing suggestive of moderate encephalopathy. No epileptiform discharge or seizure-like activity. Patient has been evaluated by neurology. CBC on arrival unremarkable. There is some macrocytosis. BMP on arrival includes a sodium 141, potassium 4.3, chloride 106, serum bicarb 19, BUN 11, creatinine 1.29, glucose 179. Normal saline is infusing at 130 MLS per hour. Lactic acid level 1.3. LFTs mildly elevated. Serum alcohol less than 10. No urine drug screen has been completed. Currently on room air. SpO2 95%. Blood pressure normotensive. Heart rhythm appears normal sinus on bedside monitor, around 90 bpm. Overall, vital signs are stabl e. Patient was reevaluated today on 09/14/2023, remains on Precedex at 1.4 mcg/kg/h, still receiving intermittent doses of Ativan and Haldol last night. Today the patient is calm, seems to be less agitated, not in any distress. WBC count is 3.8 hemoglobin 10.3 basic metabolic profile is normal except for bicarb of 15 and potassium of 3.3. Blood sugar earlier this morning was 44, IV fluids macario ed to D5 4 5 today. Reevaluate today on 09/15/23, patient is in the ICU, intermittently agitated sti ll requiring Precedex which was increased earlier today from 0.4 to 0.8 mcg/kg/h. Fluids turned down to KVO, patient is still requiring intermittent Haldol and Ativan. And his Seroquel dose was increased today up to 50 mg twice daily. Considering his agitation and restlessness, patient is not quite ready to leave the ICU. CBC is relatively normal basic metabolic profile is normal renal profile is normal potassium is a bit low at 3.3 reevaluate today on 09/16/23, patient is still in the ICU, remains on Precedex at 0.6 mcg/kg/h, remains on D5 4 520 mL/h. Still requiring intermittently Haldol and Ativan and is still on Seroquel which was increased to 100 mg twice daily. Patient continues to have intermittent episodes of agitations requiring either Haldol or Ativan or both. WBC count today is 2.9 hemoglobin 11.8 basic metabolic profile is normal renal profile is normal The patient is seen today September 17, 2023 in follow-up in the intensive care unit. He is still having episodes of confusion and restlessness. He is currently on Precedex at 0.1 mcg/kg/h. He is also receiving intermittent Ativan and Dilaudid. He is on Seroquel. No seizure activity. He remains on Vimpat and La mictal. He has D5 and a half normal staying at 20 MLS per hour. White count 2.9. Hemoglobin 11.6. Platelets 119. Sodium 139. Potassium 3.6. Bicarb 30. BUN 3. Creatinine 0.68. Glucose 93. The patient is seen today September 18, 2023 in follow-up in the intensive care unit. He is currently resting in bed. Awake and alert. Still with periods of confusion and restlessness. He was able to be weaned off the Precedex. He is continued on Seroquel, Haldol, Ativan. He is maintaining O2 saturations in the 90s on room air. X-ray reveals some mild atelectasis of the left lung base. White count 3.2. Hemoglobin 12.0. Platelets 133. Sodium 139. Potassium 3.8. Bicarb 26. BUN 3. Creatinine 0.70. Glucose 73. He has D5 and a half normal saline at 20 MLS per hour. Heparin for DVT prophylaxis. Objective - Vital Signs Vital signs: Vital Signs Temp 98.2 F 09/18/23 08:00 Pulse 75 09/18/23 10:00 Resp 18 09/18/23 10:00 BP 112/78 09/18/23 10:00 Pulse Ox 97 09/18/23 08:00 FiO2 96 09/15/23 10:00 Intake & Output 09/17/23 09/18/23 09/18/23 18:59 06:59 18:59 Intake Total 248.563 480 80 Output Total 800 585 100 Balance -551.437 -105 -20 Weight 51.4 kg 51.3 kg Intake: IV 240 240 60 Dextrose 5%-0.45% NaCl 1, 240 240 60 000 ml @ 20 mls/hr IV . Q24H FITO Rx#:[id number] Intake, IV Titration 8.563 240 20 Amount Dexmedetomidine/0.9% NaCl 8.563 (Pmx) 400 mcg In Empty Bag 1 bag @ 0.2 MCG/KG/HR 2.495 mls/hr IV .Q24H FITO Rx#:[id number] Dextrose 5%-0.45% NaCl 1, 240 20 000 ml @ 20 mls/hr IV . Q24H FITO Rx#:[id number] Output: Urine 800 585 100 Other: Voiding Method Indwelling Catheter Indwelling Catheter Indwelling Catheter - Exam GENERAL EXAM: Alert, confused, restless at times 53-year-old male, resting in bed. On room air, in no acute distress HEAD: Normocephalic. Abrasion on left forehead EYES: Normal reaction of pupils, equal size. NOSE: Clear with pink turbinates. THROAT: No erythema or exudates. Edentulous, dry mucous membranes NECK: No masses, no JVD. CHEST: No chest wall deformity. LUNGS: Equal air entry with no crackles, wheeze, rhonchi or dullness. CVS: S1 and S2 normal with no audible murmur, regular rhythm. No extra heart sounds ABDOMEN: No hepatosplenomegaly, active bowel sounds, no guarding or rigidity. SPINE: No scoliosis or deformity SKIN: No rashes CENTRAL NERVOUS SYSTEM: Alert but confused. Tone is normal in all 4 extremities EXTREMITIES: No peripheral edema. No clubbing edema or cyanosis. - Labs CBC & Chem 7: 09/18/23 03:41 09/18/23 03:41 Labs: Abnormal Lab Results - Last 24 Hours (Table) 09/18/23 09/18/23 Range/Units 03:41 03:41 WBC 3.2 L (3.8-10.6) k/uL RBC 3.37 L (4.30-5.90) m/uL Hgb 12.0 L (13.0-17.5) gm/dL Hct 36.9 L (39.0-53.0) % MCV 109.6 H (80.0-100.0) fL MCH 35.6 H (25.0-35.0) pg RDW 16.1 H (11.5-15.5) % Plt Count 133 L (150-450) k/uL Macrocytosis Marked A BUN 3 L (9-20) mg/dL Glucose 73 L (74-99) mg/dL Assessment and Plan Assessment: Acute alcohol withdrawal delirium tremens Fall, with abrasion to left forehead Acute kidney injury, resolved History of alcoholism History of seizure disorder History of CVA/TIA History of hypertension History of hyperlipidemia History of SVT with previous ablation History of syncope History of hypothyroidism History of anxiety and depression Plan: The patient was seen and evaluated Chest x-ray, labs and medications reviewed He has been weaned off the Precedex Continue Seroquel, Haldol, Ativan as needed Currently stable and on room air Continue to monitor closely here in the ICU I have personally seen and examined the patient, performed the documentation and the assessment and plan as written. Number of minutes spent on the visit: 10.
[2023-09-18 14:41] LABS: Glucose,Whole Blood 82 mg/dL (70-110)
--- NOTE | 2023-09-18 15:31 | P.PN ---
Subjective Progress Note Date: 09/18/23 Patient is evaluated today in the intensive care unit resting in in the bed. He is currently in soft restraints in the upper extremities bilaterally; he is attempting to get up out of bed. He remains confused currently alert and oriented x 1 he states he is hallucinating and seeing thomas and objects that a raina't there and he feels the thomas are moving. He has been taken off the precedex gtt and currently on a combination of IV haldol and IV push ativan, requiring multiple doses with a CIWA score over 10 today. Indwelling catheter in place. Chest xray today showing mild atelectasis of the left costophrenic angle. Labs today showing WBC 3.2, hgb 12.0, platelet count of 133, BUN 3, creatinine 0.70, sodium 139, potassium 3.8, Vitamin B12 432, Folate 7.70. Review of Systems Constitutional: Denied any fatigue denied any fever. Cardio vascular: denied any chest pain, palpitations Gastrointestinal: denied any nausea, vomiting, diarrhea Pulmonary: Denied any shortness of breath cough Neurologic denied any new focal deficits All inpatient medications were reviewed and appropriate changes in these medications as dictated in the interval history and assessment and plan. PHYSICAL EXAMINATION: GENERAL: The patient is alert and oriented x1, not in any acute distress. Well developed, well nourished. HEENT: Pupils are round and equally reacting to light. EOMI. No scleral icterus. No conjunctival pallor. Normocephalic, atraumatic. No pharyngeal erythema. No thyromegaly. CARDIOVASCULAR: S1 and S2 present. No murmurs, rubs, or gallops. PULMONARY: Chest is clear to auscultation, no wheezing or crackles. ABDOMEN: Soft, nontender, nondistended, normoactive bowel sounds. No palpable organomegaly. MUSCULOSKELETAL: No joint swelling or deformity. IDC in place. EXTREMITIES: No cyanosis, clubbing, or pedal edema. NEUROLOGICAL: Gross neurological examination did not reveal any focal deficits. SKIN: No rashes. Assessment and Plan -Acute delirium tremens -Acute alcohol withdrawal requiring IV ativan and IV haldol which may further be contributing to the confusion, haldol will be cut back and will add librium with the goal to cut back the ativan. Patient remains on seroquel scheduled. -History of alcohol abuse -History of seizure disorder maintained on vimpat. -History of stroke -History of psychosis -Mild pancytopenia and macrocytosis, due to alcoholism - vitamin B12 and folate checked and normal. GI prophylaxis DVT prophylaxis Full Code The impression and plan of care has been dictated by Sarah Greenfield, Nurse Practitioner as directed. Dr. Rogers MD I have performed a history and physical examination and medical decision making of this patient, discussed the same with the dictator, and agree with the dictators assessment and plan as written, documented as a scribe. Based on total visit time, I have performed more than 50% of this visit. Objective - Vital Signs Vital signs: Vital Signs Temp 98.2 F 09/18/23 08:00 Pulse 65 09/18/23 08:00 Resp 18 09/18/23 08:00 BP 146/99 09/18/23 08:00 Pulse Ox 97 09/18/23 08:00 FiO2 96 09/15/23 10:00 Intake & Output 09/17/23 09/18/23 09/18/23 18:59 06:59 18:59 Intake Total 248.563 480 60 Output Total 800 585 55 Balance -551.437 -105 5 Weight 51.4 kg 51.3 kg Intake: IV 240 240 40 Dextrose 5%-0.45% NaCl 1, 240 240 40 000 ml @ 20 mls/hr IV . Q24H FITO Rx#:[id number] Intake, IV Titration 8.563 240 20 Amount Dexmedetomidine/0.9% NaCl 8.563 (Pmx) 400 mcg In Empty Bag 1 bag @ 0.2 MCG/KG/HR 2.495 mls/hr IV .Q24H FITO Rx#:[id number] Dextrose 5%-0.45% NaCl 1, 240 20 000 ml @ 20 mls/hr IV . Q24H FITO Rx#:[id number] Output: Urine 800 585 55 Other: Voiding Method Indwelling Catheter Indwelling Catheter Indwelling Catheter - Labs CBC & Chem 7: 09/18/23 03:41 09/18/23 03:41 Labs: Abnormal Lab Results - Last 24 Hours (Table) 09/18/23 09/18/23 Range/Units 03:41 03:41 WBC 3.2 L (3.8-10.6) k/uL RBC 3.37 L (4.30-5.90) m/uL Hgb 12.0 L (13.0-17.5) gm/dL Hct 36.9 L (39.0-53.0) % MCV 109.6 H (80.0-100.0) fL MCH 35.6 H (25.0-35.0) pg RDW 16.1 H (11.5-15.5) % Plt Count 133 L (150-450) k/uL Macrocytosis Marked A BUN 3 L (9-20) mg/dL Glucose 73 L (74-99) mg/dL Assessment and Plan Time with Patient: Less than 30
[2023-09-18] MEDS: chlordiazePOXIDE 25 MG CAP PO SCH (16:57)
[2023-09-18] MEDS: HALOPERIDOL LACTATE 5 MG/ML 1 ML VIAL IVP PRN (16:59)
--- NOTE | 2023-09-18 17:41 | P.PN ---
Subjective Progress Note Date: 09/18/23 09/18/2023: Patient was seen for a follow-up. Patient is laying comfortably in the bed. States feeling better. Denies any headache, no pain anywhere. 09/17/2023: Patient was initially seen by Dr. Maxwell Hooks. My service started from today. Please refer to his note for details. Patient is a 53-year-old male with history of seizure and alcohol use, who has altered mental status. Patient also has hypoglycemia. Patient was diagnosed with delirium. EEG revealed moderate encephalopathy but no epileptiform discharges. At present patient is laying in the bed. He has a Bowman vest restraint. He states he feels "same as always". Patient denies headache. Patient offers no complaints. Some of the work-up during this hospital visit consisted of: Serum glucose is 179. Plasma-Lyte acid vein is 1.3. Sodium is 141, AST of 84 ALTs of 41, ammonia is less than 9 Most recent serum glucose is 44 Alcohol level is less than 10 CT head is reported as no acute the hemorrhage, hydrocephalus or mass effect. I personally reviewed the CT and agreed as no acute subacute stroke. There is no large encephalomalacia. It seems the patient has hyperintensity over the bilateral basal ganglia which is seen on prior CTs. Seems more calcification. CT cervical spine is reported as no acute fracture or subluxation. Routine EEG is abnormal. The background slowing is suggestive of moderate encephalopathy. Otherwise, there is no focal slowing, epileptiform discharge or seizure on the EEG. There is significant artifact over bilateral temporal region. Objective - Vital Signs Vital signs: Vital Signs Temp 98.2 F 09/18/23 16:00 Pulse 70 09/18/23 17:00 Resp 16 09/18/23 17:00 BP 132/90 09/18/23 17:00 Pulse Ox 98 09/18/23 13:00 FiO2 96 09/15/23 10:00 Intake & Output 09/17/23 09/18/23 09/18/23 18:59 06:59 18:59 Intake Total 248.563 480 240 Output Total 800 585 720 Balance -551.437 -105 -480 Weight 51.4 kg 51.3 kg Intake: IV 240 240 220 Dextrose 5%-0.45% NaCl 1, 240 240 220 000 ml @ 20 mls/hr IV . Q24H FITO Rx#:[id number] Intake, IV Titration 8.563 240 20 Amount Dexmedetomidine/0.9% NaCl 8.563 (Pmx) 400 mcg In Empty Bag 1 bag @ 0.2 MCG/KG/HR 2.495 mls/hr IV .Q24H FITO Rx#:[id number] Dextrose 5%-0.45% NaCl 1, 240 20 000 ml @ 20 mls/hr IV . Q24H FITO Rx#:[id number] Output: Urine 800 585 720 Other: Voiding Method Indwelling Catheter Indwelling Catheter Indwelling Catheter - Exam Patient is alert and awake, slightly encephalopathic. He states that this is September 2023. Patient knows that he is in [facility] imported on [place]. Speech and language functions are normal. He speaks with low volume. His face is symmetric. Patient's muscle strength is normal in the arms and legs. His both hands are in restraints. Sensations equal. Cerebellar functions cannot be checked. - Labs CBC & Chem 7: 09/18/23 03:41 09/18/23 03:41 Labs: Abnormal Lab Results - Last 24 Hours (Table) 09/18/23 09/18/23 Range/Units 03:41 03:41 WBC 3.2 L (3.8-10.6) k/uL RBC 3.37 L (4.30-5.90) m/uL Hgb 12.0 L (13.0-17.5) gm/dL Hct 36.9 L (39.0-53.0) % MCV 109.6 H (80.0-100.0) fL MCH 35.6 H (25.0-35.0) pg RDW 16.1 H (11.5-15.5) % Plt Count 133 L (150-450) k/uL Macrocytosis Marked A BUN 3 L (9-20) mg/dL Glucose 73 L (74-99) mg/dL Assessment and Plan Assessment: This is a 53-year-old gentleman with history of seizure, psychosis requiring admission to the mental health in the past, alcohol use who presents because of altered mental status. It is reported that his last alcohol use was about 24 hours prior to presenting to the hospital. Delirium due to hypoglycemia and hospital induced. No seizure on EEG History of seizures and patient has multiple eeg's and prolonged eeg and is negative for seizure or discharges. Hypoglycemia (as low as 44) Macrocytic anemia, likely from alcoholism Hypothyroidism Cardiomyopathy status post cardiac ablation History of stroke this remote over the right basal ganglia History of psychosis requiring admission mental health in the past Anxiety and depression Alcohol use Plan: Patient is resumed on his home medication of the Vimpat 200 mg twice a day as well as the Lamictal 25 mg twice a day Patient is on thiamine 100 mg daily Patient is on Ativan per [facility] protocol seizure precaution and pad. Patient is on Haldol PRN. Dr. Hooks has started him on Seroquel 25mg qhs. Can go up to 50mg qhs if needed. Please avoid hypoglycemia. B12 432, folate level 7.7. Both are borderline. We will start B12, folate replacement. We'll defer the rest of the medical management to primary and other specialists Continue supportive care.
[2023-09-18] MEDS: CYANOCOBALAMIN 500 MCG TAB PO SCH (17:46)
[2023-09-18] MEDS: FOLIC ACID 1 MG TAB PO SCH (17:46)
[2023-09-18 23:52] LABS: Glucose,Whole Blood 63 mg/dL (70-110)
[2023-09-19] MEDS: DEXTROSE 50% SYRINGE 50 ML IVP STA (00:04)
[2023-09-19 00:15] LABS: Glucose,Whole Blood 125 mg/dL (70-110)
[2023-09-19] MEDS: DEXTROSE 50% SYRINGE 50 ML IVP ONE (00:18)
[2023-09-19 03:20] LABS: Glucose,Whole Blood 87 mg/dL (70-110)
[2023-09-19 04:16] LABS: Basophils % (A) 0 %; Eosinophils # (A) 0.1 k/uL (0-0.7); Eosinophils % (A) 2 %; HCT 39.5 % (39.0-53.0); HGB 12.5 gm/dL (13.0-17.5); Lymphocytes # (A) 0.8 k/uL (1.0-4.8); Lymphocytes % (A) 23 %; MCHC 31.7 g/dL (31.0-37.0); MCV 107.1 fL (80.0-100.0); Macrocytosis Marked; Mean Platelet Volume 7.9; Monocytes # (A) 0.3 k/uL (0-1.0); Monocytes % (A) 9 %; Neutrophils # (A) 2.1 k/uL (1.3-7.7); Neutrophils % (A) 64 %; Platelet Count 164 k/uL (150-450); RBC 3.69 m/uL (4.30-5.90); RDW 15.9 % (11.5-15.5); WBC 3.2 k/uL (3.8-10.6)
[2023-09-19 04:27] LABS: African American GFR (CKD) >90 (>60 ml/min/1.73 sqM); Anion Gap 5 mmol/L; Blood Urea Nitrogen 5 mg/dL (9-20); Calcium 8.8 mg/dL (8.4-10.2); Carbon Dioxide 27 mmol/L (22-30); Chloride 106 mmol/L (98-107); Glucose 125 mg/dL (74-99); Magnesium 1.6 mg/dL (1.6-2.3); Non-African American GFR(CKD) >90 (>60 ml/min/1.73 sqM); Potassium 3.7 mmol/L (3.5-5.1); Sodium 138 mmol/L (137-145)
[2023-09-19] MEDS ORDERED: Potassium Replacement Protocol 1 EACH MISC MISCELLANE PRN (05:16)
[2023-09-19] MEDS: POTASSIUM CHLORIDE ER 20 MEQ TAB.ER PO SCH (05:42)
[2023-09-19] MEDS ORDERED: Magnesium Replacement Protocol 1 EACH MISC MISCELLANE PRN (07:33)
[2023-09-19] MEDS: MAGNESIUM SULFATE-D5W PMX 1 GM in DEXTROSE/WATER 1 100ML.BAG IVPB SCH (07:55)
--- NOTE | 2023-09-19 10:33 | P.PN ---
Subjective Progress Note Date: 09/19/23 I am seeing this patient in new consultation today 09/13/2023 in the emergency room for suspected alcohol withdrawal delirium tremens with high CIWA despite multiple doses of benzodiazepines. Patient was ultimately placed on a Precedex infusion, and will be admitted to the intensive care unit once bed available. Patient is a 53-year-old white male with past medical history significant for alcoholism, seizure disorder, CVA/TIA, hypertension, hyperlipidemia, SVT with previous ablation, syncope, hypothyroidism. Patient is currently unresponsive and unable to provide any information. History was taken from the medical record. Patient was brought into the emergency room early in the morning yester day, mostly for altered mental status. Patient reportedly resides with his mother. He is an alcoholic. Last reported drink was 24 to 48 hours ago. He was last seen acting normal around 3 PM the day before yesterday. Per the ER note, the patient was observed pacing in the house. He was confused and this progressively worsened. While in the emergency room, he was severely agitated/restless, and last recorded CIWA score was 21. He received multiple doses of benzodiazepines including 15 mg of Valium and 9 mg of Ativan. He was then placed on a Precedex infusion, which is currently infusing at 0.4 mcg/kg/h. He is unresponsive at the moment. This is being weaned down. No reported seizure activity. No witnessed vomiting or aspiration. He is maintained on Vimpat and Lamictal outpatient. He did reportedly have a fall at home, he has an abrasion on his left forehead. CT of the head and C-spine did not show any acute fracture or subluxation. No intracranial hemorrhage or mass effect. Follow-up EEG shows diffuse background slowing suggestive of moderate encephalopathy. No epileptiform discharge or seizure-like activity. Patient has been evaluated by neurology. CBC on arrival unremarkable. There is some macrocytosis. BMP on arrival includes a sodium 141, potassium 4.3, chloride 106, serum bicarb 19, BUN 11, creatinine 1.29, glucose 179. Normal saline is infusing at 130 MLS per hour. Lactic acid level 1.3. LFTs mildly elevated. Serum alcohol less than 10. No urine drug screen has been completed. Currently on room air. SpO2 95%. Blood pressure normotensive. Heart rhythm appears normal sinus on bedside monitor, around 90 bpm. Overall, vital signs are stabl e. Patient was reevaluated today on 09/14/2023, remains on Precedex at 1.4 mcg/kg/h, still receiving intermittent doses of Ativan and Haldol last night. Today the patient is calm, seems to be less agitated, not in any distress. WBC count is 3.8 hemoglobin 10.3 basic metabolic profile is normal except for bicarb of 15 and potassium of 3.3. Blood sugar earlier this morning was 44, IV fluids macario ed to D5 4 5 today. Reevaluate today on 09/15/23, patient is in the ICU, intermittently agitated sti ll requiring Precedex which was increased earlier today from 0.4 to 0.8 mcg/kg/h. Fluids turned down to KVO, patient is still requiring intermittent Haldol and Ativan. And his Seroquel dose was increased today up to 50 mg twice daily. Considering his agitation and restlessness, patient is not quite ready to leave the ICU. CBC is relatively normal basic metabolic profile is normal renal profile is normal potassium is a bit low at 3.3 reevaluate today on 09/16/23, patient is still in the ICU, remains on Precedex at 0.6 mcg/kg/h, remains on D5 4 520 mL/h. Still requiring intermittently Haldol and Ativan and is still on Seroquel which was increased to 100 mg twice daily. Patient continues to have intermittent episodes of agitations requiring either Haldol or Ativan or both. WBC count today is 2.9 hemoglobin 11.8 basic metabolic profile is normal renal profile is normal The patient is seen today September 17, 2023 in follow-up in the intensive care unit. He is still having episodes of confusion and restlessness. He is currently on Precedex at 0.1 mcg/kg/h. He is also receiving intermittent Ativan and Dilaudid. He is on Seroquel. No seizure activity. He remains on Vimpat and La mictal. He has D5 and a half normal staying at 20 MLS per hour. White count 2.9. Hemoglobin 11.6. Platelets 119. Sodium 139. Potassium 3.6. Bicarb 30. BUN 3. Creatinine 0.68. Glucose 93. The patient is seen today September 18, 2023 in follow-up in the intensive care unit. He is currently resting in bed. Awake and alert. Still with periods of confusion and restlessness. He was able to be weaned off the Precedex. He is continued on Seroquel, Haldol, Ativan. He is maintaining O2 saturations in the 90s on room air. X-ray reveals some mild atelectasis of the left lung base. White count 3.2. Hemoglobin 12.0. Platelets 133. Sodium 139. Potassium 3.8. Bicarb 26. BUN 3. Creatinine 0.70. Glucose 73. He has D5 and a half normal saline at 20 MLS per hour. Heparin for DVT prophylaxis. The patient is seen today September 19, 2023 in follow-up in the intensive care unit. He is currently awake and alert in no acute distress. More calm and cooperative. He is maintaining good O2 saturations in the 90s on room air. No IV fluids. He has been maintained on Seroquel, Ativan and Haldol. White count 3.2. Hemoglobin 12.5. Platelets 164. Sodium 138. Potassium 3.7. Bicarb 27. BUN 5. Creatinine 0.76. Glucose 125. He has been afebrile. Hemodynamically stable. He is on heparin for DVT prophylaxis. Objective - Vital Signs Vital signs: Vital Signs Temp 97.8 F 09/19/23 09:01 Pulse 80 09/19/23 09:01 Resp 22 09/19/23 08:00 BP 116/73 09/19/23 09:01 Pulse Ox 99 09/19/23 08:00 FiO2 96 09/15/23 10:00 Intake & Output 09/18/23 09/19/23 09/19/23 18:59 06:59 18:59 Intake Total 260 460 0 Output Total 760 965 Balance -500 -505 0 Weight 51.8 kg Intake: IV 240 260 Dextrose 5%-0.45% NaCl 1, 240 260 000 ml @ 20 mls/hr IV . Q24H FITO Rx#:[id number] Intake, IV Titration 20 Amount Dextrose 5%-0.45% NaCl 1, 20 000 ml @ 20 mls/hr IV . Q24H FITO Rx#:[id number] Oral 200 0 Output: Urine 760 965 Other: Voiding Method Indwelling Catheter Indwelling Catheter # Voids 0 # Bowel Movements 0 - Exam GENERAL EXAM: Alert, calm, cooperative 53-year-old male, resting in bed. On room air, in no acute distress HEAD: Normocephalic. Abrasion on left forehead EYES: Normal reaction of pupils, equal size. NOSE: Clear with pink turbinates. THROAT: No erythema or exudates. Edentulous, dry mucous membranes NECK: No masses, no JVD. CHEST: No chest wall deformity. LUNGS: Equal air entry with no crackles, wheeze, rhonchi or dullness. CVS: S1 and S2 normal with no audible murmur, regular rhythm. No extra heart sounds ABDOMEN: No hepatosplenomegaly, active bowel sounds, no guarding or rigidity. SPINE: No scoliosis or deformity SKIN: No rashes CENTRAL NERVOUS SYSTEM: Alert. Tone is normal in all 4 extremities EXTREMITIES: No peripheral edema. No clubbing edema or cyanosis. - Labs CBC & Chem 7: 09/19/23 03:38 09/19/23 03:38 Labs: Abnormal Lab Results - Last 24 Hours (Table) 09/18/23 09/19/23 09/19/23 Range/Units 23:50 00:14 03:38 WBC 3.2 L (3.8-10.6) k/uL RBC 3.69 L (4.30-5.90) m/uL Hgb 12.5 L (13.0-17.5) gm/dL MCV 107.1 H (80.0-100.0) fL RDW 15.9 H (11.5-15.5) % Lymphocytes # 0.8 L (1.0-4.8) k/uL Macrocytosis Marked A BUN (9-20) mg/dL Glucose (74-99) mg/dL POC Glucose (mg/dL) 63 L 125 H (70-110) mg/dL 09/19/23 Range/Units 03:38 WBC (3.8-10.6) k/uL RBC (4.30-5.90) m/uL Hgb (13.0-17.5) gm/dL MCV (80.0-100.0) fL RDW (11.5-15.5) % Lymphocytes # (1.0-4.8) k/uL Macrocytosis BUN 5 L (9-20) mg/dL Glucose 125 H (74-99) mg/dL POC Glucose (mg/dL) (70-110) mg/dL Assessment and Plan Assessment: Acute alcohol withdrawal delirium tremens Fall, with abrasion to left forehead Acute kidney injury, resolved History of alcoholism History of seizure disorder History of CVA/TIA History of hypertension History of hyperlipidemia History of SVT with previous ablation History of syncope History of hypothyroidism History of anxiety and depression Plan: The patient was seen and evaluated Labs and medications reviewed Continue Seroquel, Haldol, Ativan as needed Currently stable and on room air Transfer to the regular medical floor I have personally seen and examined the patient, performed the documentation and the assessment and plan as written. Number of minutes spent on the visit: 10.
[2023-09-19 12:17] LABS: Glucose,Whole Blood 208 mg/dL (70-110)
--- NOTE | 2023-09-19 14:02 | P.PN ---
Subjective Progress Note Date: 09/19/23 Patient is evaluated today in the intensive care unit resting in in the bed. He is currently in soft restraints in the upper extremities bilaterally; he is attempting to get up out of bed. He remains confused currently alert and oriented x 1 he states he is hallucinating and seeing thomas and objects that a raina't there and he feels the thomas are moving. He has been taken off the precedex gtt and currently on a combination of IV haldol and IV push ativan, requiring multiple doses with a CIWA score over 10 today. Indwelling catheter in place. Chest xray today showing mild atelectasis of the left costophrenic angle. Labs today showing WBC 3.2, hgb 12.0, platelet count of 133, BUN 3, creatinine 0.70, sodium 139, potassium 3.8, Vitamin B12 432, Folate 7.70. 09/19/2023 Patient is evaluated today in the intensive care unit, mentation has improved he is more awake and alert. He will be weaned off the haldol and ativan has been started on oral librium and also remains on seroquel scheduled. Patient is up in the chair today and tolerating some diet. Remains on D5 1/2 normal saline at 20 mls/hr. He will be given incentive spirometer. Review of Systems Constitutional: Denied any fatigue denied any fever. Cardio vascular: denied any chest pain, palpitations Gastrointestinal: denied any nausea, vomiting, diarrhea Pulmonary: Denied any shortness of breath cough Neurologic denied any new focal deficits All inpatient medications were reviewed and appropriate changes in these medications as dictated in the interval history and assessment and plan. PHYSICAL EXAMINATION: GENERAL: The patient is alert and oriented x2-3, not in any acute distress. Well developed, well nourished. HEENT: Pupils are round and equally reacting to light. EOMI. No scleral icterus. No conjunctival pallor. Normocephalic, atraumatic. No pharyngeal erythema. No thyromegaly. CARDIOVASCULAR: S1 and S2 present. No murmurs, rubs, or gallops. PULMONARY: Chest is clear to auscultation, no wheezing or crackles. ABDOMEN: Soft, nontender, nondistended, normoactive bowel sounds. No palpable organomegaly. MUSCULOSKELETAL: No joint swelling or deformity. IDC in place. EXTREMITIES: No cyanosis, clubbing, or pedal edema. NEUROLOGICAL: Gross neurological examination did not reveal any focal deficits. SKIN: No rashes. Assessment and Plan -Acute delirium tremens improving -Acute alcohol withdrawal patient will be taken off the IV ativan and the haldol and continue on oral librium and seroquel -Generalized weakness due to alcoholism ; physical therapy consulted -Atelectasis patient will be given incentive spirometer and encouraged to increase activity level -History of alcohol abuse -History of seizure disorder maintained on vimpat. -History of stroke -History of psychosis -Mild pancytopenia and macrocytosis, due to alcoholism - vitamin B12 and folate checked and normal. GI prophylaxis DVT prophylaxis Full Code The impression and plan of care has been dictated by Sarah Greenfield, Nurse Practitioner as directed. Dr. Rogers MD I have performed a history and physical examination and medical decision making of this patient, discussed the same with the dictator, and agree with the dictators assessment and plan as written, documented as a scribe. Based on total visit time, I have performed more than 50% of this visit. Objective - Vital Signs Vital signs: Vital Signs Temp 97.8 F 09/19/23 09:01 Pulse 76 09/19/23 12:00 Resp 19 09/19/23 12:00 BP 116/73 09/19/23 10:00 Pulse Ox 99 09/19/23 08:00 FiO2 96 09/15/23 10:00 Intake & Output 09/18/23 09/19/23 09/19/23 18:59 06:59 18:59 Intake Total 260 460 240 Output Total 760 965 150 Balance -500 -505 90 Weight 51.8 kg Intake: IV 240 260 40 Dextrose 5%-0.45% NaCl 1, 240 260 40 000 ml @ 20 mls/hr IV . Q24H FITO Rx#:[id number] Intake, IV Titration 20 200 Amount Dextrose 5%-0.45% NaCl 1, 20 000 ml @ 20 mls/hr IV . Q24H FITO Rx#:[id number] Magnesium Sulfate-D5w Pmx 200 1 gm In Dextrose/Water 1 100ml.bag @ 100 mls/hr IVPB Q1H FITO Rx#: [id number] Oral 200 0 Output: Urine 760 965 150 Other: Voiding Method Indwelling Catheter Indwelling Catheter Indwelling Catheter # Voids 0 # Bowel Movements 0 - Labs CBC & Chem 7: 09/19/23 03:38 09/19/23 03:38 Labs: Abnormal Lab Results - Last 24 Hours (Table) 09/18/23 09/19/23 09/19/23 Range/Units 23:50 00:14 03:38 WBC 3.2 L (3.8-10.6) k/uL RBC 3.69 L (4.30-5.90) m/uL Hgb 12.5 L (13.0-17.5) gm/dL MCV 107.1 H (80.0-100.0) fL RDW 15.9 H (11.5-15.5) % Lymphocytes # 0.8 L (1.0-4.8) k/uL Macrocytosis Marked A BUN (9-20) mg/dL Glucose (74-99) mg/dL POC Glucose (mg/dL) 63 L 125 H (70-110) mg/dL 09/19/23 09/19/23 Range/Units 03:38 12:16 WBC (3.8-10.6) k/uL RBC (4.30-5.90) m/uL Hgb (13.0-17.5) gm/dL MCV (80.0-100.0) fL RDW (11.5-15.5) % Lymphocytes # (1.0-4.8) k/uL Macrocytosis BUN 5 L (9-20) mg/dL Glucose 125 H (74-99) mg/dL POC Glucose (mg/dL) 208 H (70-110) mg/dL Assessment and Plan Time with Patient: Less than 30
[2023-09-19 14:24] LABS: Glucose,Whole Blood 97 mg/dL (70-110)
[2023-09-19 16:19] LABS: Glucose,Whole Blood 82 mg/dL (70-110)
[2023-09-20 03:55] LABS: Basophils % (A) 0 %; Eosinophils % (A) 1 %; HCT 37.7 % (39.0-53.0); HGB 11.9 gm/dL (13.0-17.5); Lymphocytes # (A) 0.8 k/uL (1.0-4.8); Lymphocytes % (A) 26 %; MCH 33.9 pg (25.0-35.0); MCHC 31.5 g/dL (31.0-37.0); MCV 107.7 fL (80.0-100.0); Mean Platelet Volume 7.6; Monocytes # (A) 0.2 k/uL (0-1.0); Monocytes % (A) 7 %; Neutrophils % (A) 64 %; Platelet Count 185 k/uL (150-450); RDW 15.7 % (11.5-15.5); WBC 3.1 k/uL (3.8-10.6)
[2023-09-20 04:12] LABS: Macrocytosis Marked
[2023-09-20 04:33] LABS: African American GFR (CKD) >90 (>60 ml/min/1.73 sqM); Anion Gap 5 mmol/L; Blood Urea Nitrogen 9 mg/dL (9-20); Calcium 8.5 mg/dL (8.4-10.2); Carbon Dioxide 27 mmol/L (22-30); Chloride 105 mmol/L (98-107); Glucose 97 mg/dL (74-99); Magnesium 2.1 mg/dL (1.6-2.3); Non-African American GFR(CKD) >90 (>60 ml/min/1.73 sqM); Potassium 3.6 mmol/L (3.5-5.1); Sodium 137 mmol/L (137-145)
[2023-09-20 09:39] VITALS: BMI 12.4
[2023-09-20] MEDS: POTASSIUM CHLORIDE ER 20 MEQ TAB.ER PO STA (10:34)
--- NOTE | 2023-09-20 11:16 | P.PN ---
Subjective Progress Note Date: 09/20/23 I am seeing this patient in new consultation today 09/13/2023 in the emergency room for suspected alcohol withdrawal delirium tremens with high CIWA despite multiple doses of benzodiazepines. Patient was ultimately placed on a Precedex infusion, and will be admitted to the intensive care unit once bed available. Patient is a 53-year-old white male with past medical history significant for alcoholism, seizure disorder, CVA/TIA, hypertension, hyperlipidemia, SVT with previous ablation, syncope, hypothyroidism. Patient is currently unresponsive and unable to provide any information. History was taken from the medical record. Patient was brought into the emergency room early in the morning yester day, mostly for altered mental status. Patient reportedly resides with his mother. He is an alcoholic. Last reported drink was 24 to 48 hours ago. He was last seen acting normal around 3 PM the day before yesterday. Per the ER note, the patient was observed pacing in the house. He was confused and this progressively worsened. While in the emergency room, he was severely agitated/restless, and last recorded CIWA score was 21. He received multiple doses of benzodiazepines including 15 mg of Valium and 9 mg of Ativan. He was then placed on a Precedex infusion, which is currently infusing at 0.4 mcg/kg/h. He is unresponsive at the moment. This is being weaned down. No reported seizure activity. No witnessed vomiting or aspiration. He is maintained on Vimpat and Lamictal outpatient. He did reportedly have a fall at home, he has an abrasion on his left forehead. CT of the head and C-spine did not show any acute fracture or subluxation. No intracranial hemorrhage or mass effect. Follow-up EEG shows diffuse background slowing suggestive of moderate encephalopathy. No epileptiform discharge or seizure-like activity. Patient has been evaluated by neurology. CBC on arrival unremarkable. There is some macrocytosis. BMP on arrival includes a sodium 141, potassium 4.3, chloride 106, serum bicarb 19, BUN 11, creatinine 1.29, glucose 179. Normal saline is infusing at 130 MLS per hour. Lactic acid level 1.3. LFTs mildly elevated. Serum alcohol less than 10. No urine drug screen has been completed. Currently on room air. SpO2 95%. Blood pressure normotensive. Heart rhythm appears normal sinus on bedside monitor, around 90 bpm. Overall, vital signs are stabl e. Patient was reevaluated today on 09/14/2023, remains on Precedex at 1.4 mcg/kg/h, still receiving intermittent doses of Ativan and Haldol last night. Today the patient is calm, seems to be less agitated, not in any distress. WBC count is 3.8 hemoglobin 10.3 basic metabolic profile is normal except for bicarb of 15 and potassium of 3.3. Blood sugar earlier this morning was 44, IV fluids macario ed to D5 4 5 today. Reevaluate today on 09/15/23, patient is in the ICU, intermittently agitated sti ll requiring Precedex which was increased earlier today from 0.4 to 0.8 mcg/kg/h. Fluids turned down to KVO, patient is still requiring intermittent Haldol and Ativan. And his Seroquel dose was increased today up to 50 mg twice daily. Considering his agitation and restlessness, patient is not quite ready to leave the ICU. CBC is relatively normal basic metabolic profile is normal renal profile is normal potassium is a bit low at 3.3 reevaluate today on 09/16/23, patient is still in the ICU, remains on Precedex at 0.6 mcg/kg/h, remains on D5 4 520 mL/h. Still requiring intermittently Haldol and Ativan and is still on Seroquel which was increased to 100 mg twice daily. Patient continues to have intermittent episodes of agitations requiring either Haldol or Ativan or both. WBC count today is 2.9 hemoglobin 11.8 basic metabolic profile is normal renal profile is normal The patient is seen today September 17, 2023 in follow-up in the intensive care unit. He is still having episodes of confusion and restlessness. He is currently on Precedex at 0.1 mcg/kg/h. He is also receiving intermittent Ativan and Dilaudid. He is on Seroquel. No seizure activity. He remains on Vimpat and La mictal. He has D5 and a half normal staying at 20 MLS per hour. White count 2.9. Hemoglobin 11.6. Platelets 119. Sodium 139. Potassium 3.6. Bicarb 30. BUN 3. Creatinine 0.68. Glucose 93. The patient is seen today September 18, 2023 in follow-up in the intensive care unit. He is currently resting in bed. Awake and alert. Still with periods of confusion and restlessness. He was able to be weaned off the Precedex. He is continued on Seroquel, Haldol, Ativan. He is maintaining O2 saturations in the 90s on room air. X-ray reveals some mild atelectasis of the left lung base. White count 3.2. Hemoglobin 12.0. Platelets 133. Sodium 139. Potassium 3.8. Bicarb 26. BUN 3. Creatinine 0.70. Glucose 73. He has D5 and a half normal saline at 20 MLS per hour. Heparin for DVT prophylaxis. The patient is seen today September 19, 2023 in follow-up in the intensive care unit. He is currently awake and alert in no acute distress. More calm and cooperative. He is maintaining good O2 saturations in the 90s on room air. No IV fluids. He has been maintained on Seroquel, Ativan and Haldol. White count 3.2. Hemoglobin 12.5. Platelets 164. Sodium 138. Potassium 3.7. Bicarb 27. BUN 5. Creatinine 0.76. Glucose 125. He has been afebrile. Hemodynamically stable. He is on heparin for DVT prophylaxis. The patient is seen today September 20, 2023 in follow-up on the regular medical floor. He was transferred out of the ICU yesterday. He is resting quite comfortably in bed. Awake and alert in no acute distress. He is maintaining good O2 saturations in the mid 90s on room air. He is afebrile. Hemodynamically stable. Still appears somewhat confused at times. He is kadie nued on Seroquel 100 mg 3 times daily. Heparin for DVT prophylaxis. He has been working with physical therapy. Objective - Vital Signs Vital signs: Vital Signs Temp 98.3 F 09/20/23 07:47 Pulse 77 09/20/23 07:47 Resp 18 09/20/23 07:47 BP 102/69 09/20/23 07:47 Pulse Ox 96 09/20/23 07:47 FiO2 96 09/15/23 10:00 Intake & Output 09/19/23 09/20/23 09/20/23 18:59 06:59 18:59 Intake Total 340 Output Total 275 Balance 65 Weight 35 kg 35 kg Intake: IV 140 Dextrose 5%-0.45% NaCl 1, 140 000 ml @ 20 mls/hr IV . Q24H FITO Rx#:[id number] Intake, IV Titration 200 Amount Magnesium Sulfate-D5w Pmx 200 1 gm In Dextrose/Water 1 100ml.bag @ 100 mls/hr IVPB Q1H FITO Rx#: [id number] Oral 0 Output: Urine 275 Other: Voiding Method Indwelling Catheter Diaper # Voids 0 # Bowel Movements 0 - Exam GENERAL EXAM: Alert, calm, cooperative, thin 53-year-old male. On room air, in no acute distress HEAD: Normocephalic. Abrasion on left forehead EYES: Normal reaction of pupils, equal size. NOSE: Clear with pink turbinates. THROAT: No erythema or exudates. Edentulous, dry mucous membranes NECK: No masses, no JVD. CHEST: No chest wall deformity. LUNGS: Equal air entry with no crackles, wheeze, rhonchi or dullness. CVS: S1 and S2 normal with no audible murmur, regular rhythm. No extra heart sounds ABDOMEN: No hepatosplenomegaly, active bowel sounds, no guarding or rigidity. SPINE: No scoliosis or deformity SKIN: No rashes CENTRAL NERVOUS SYSTEM: Alert. Tone is normal in all 4 extremities EXTREMITIES: No peripheral edema. No clubbing edema or cyanosis. - Labs CBC & Chem 7: 09/20/23 03:01 09/20/23 03:01 Labs: Abnormal Lab Results - Last 24 Hours (Table) 09/19/23 09/20/23 Range/Units 12:16 03:01 WBC 3.1 L (3.8-10.6) k/uL RBC 3.50 L (4.30-5.90) m/uL Hgb 11.9 L (13.0-17.5) gm/dL Hct 37.7 L (39.0-53.0) % MCV 107.7 H (80.0-100.0) fL RDW 15.7 H (11.5-15.5) % Lymphocytes # 0.8 L (1.0-4.8) k/uL Macrocytosis Marked A POC Glucose (mg/dL) 208 H (70-110) mg/dL Assessment and Plan Assessment: Acute alcohol withdrawal delirium tremens improving Fall, with abrasion to left forehead Acute kidney injury, resolved History of alcoholism History of seizure disorder History of CVA/TIA History of hypertension History of hyperlipidemia History of SVT with previous ablation History of syncope History of hypothyroidism History of anxiety and depression Plan: The patient was seen and evaluated Labs and medications reviewed Continue the current treatment plan Currently stable and on room air Working with physical therapy May need subacute rehab at discharge This patient was seen independently by the pulmonary nurse practitioner addressing pulmonary issues I have personally seen and examined the patient, performed the documentation and the assessment and plan as written. Number of minutes spent on the visit: 24.
[2023-09-20 15:02] VITALS: BP 101/67; PULSE 79; RESP 16; TEMP 98.1
--- NOTE | 2023-09-22 21:48 | P.DS ---
Providers Date of admission: 09/12/23 02:41 Attending physician: Aries Ma Consults: 09/12/23 02:39 Consult Physician Routine Consulting Provider: Maxwell Hooks Consult Reason/Comments: ams Do you want consulting provider notified?: Yes 09/12/23 19:09 Consult Physician Routine Consulting Provider: Ivy Jones Consult Reason/Comments: high CIWA Do you want consulting provider notified?: Already Contacted Primary care physician: Aries Ma [facility] Course: Final Diagnosis -Acute delirium tremens resolved. -Acute alcohol withdrawal -Generalized weakness due to alcoholism ; physical therapy evaluated -Atelectasis patient will be given incentive spirometer and encouraged to increase activity level -History of alcohol abuse -History of seizure disorder maintained on vimpat. -History of stroke -History of psychosis -Mild pancytopenia and macrocytosis, due to alcoholism - vitamin B12 and folate checked and normal. -Hx of hypertension currently low/normal. Discharge Disposition Patient is stable for discharge home. Recommend to continue short course of oral librium as well as seroquel at . Mentation has improved. Patient does live with his parents who are agreeable to discharge home. Patient advised to quit alcohol. Lisinopril held on discharge due to low/normal Blood pressues in the 100s systolic. Patient has a follow up with his PCP Dr. Ma on 09/27/23. Hospital Course Patient is a 53 year-old male who presented to [facility] emergency room with a chief complaint of altered mental status changes according to records patient was last seen normal approximately 3 PM yesterday. According to records mother noticed patient was pacing around the house. Patient does abuse alcohol with last noted alcohol intake over 24 hours. He was evaluated in the emergency room vital examination on presentation revealed temperature 97.4, heart rate 68, respiratory rate 18, blood pressure 143/81 with pulse ox 98% on room air. Laboratory data reveals serum alcohol less than 10, total bilirubin 9, AST 84, ALT 41, alkaline phosphatase 127. Creatinine 1.29 bun 11, hemoglobin 14.4, WBC 4.3. Head and cervical CT completed showing no acute hemorrhage hydrocephalus or mass effect no acute fracture or subluxation. Patient was admitted to medical floor for further evaluation and treatment. He did require transfer to the ICU with concerns for DTs and alcohol withdrawal with worsening confusion. He was treated with ativan valium and then did require precedex infusion. His mentation improved. He was weaned off the precedex and transferred to the medical floor from the ICU. His sedation was cut back. He has been up out of bed ambulating around the room and tolerating diet. No reports of nausea, vomiting diarrhea, chest pain, shortness of breath. He had Chest xray showing mild atelectasis of the left costophrenic angle he was given incentive spirometer. He is on room air. He was evaluated by PT and recommendations were made for home on discharge. He is advised to quit alcohol he verbalizes understanding and agrees. Please see medication reconciliation for a list of current medications. Thank you for allowing us to participate in the care of this patient. The impression and plan of care has been dictated by Sarah Greenfield, Nurse Practitioner as directed. Dr. Rogers MD I have performed a history and physical examination and medical decision making of this patient, discussed the same with the dictator, and agree with the dictators assessment and plan as written, documented as a scribe. Based on total visit time, I have performed more than 50% of this visit. Patient Condition at Discharge: Fair Plan - Discharge Summary Discharge Rx Participant: No New Discharge Prescriptions: New Famotidine [Pepcid] 20 mg PO DAILY #30 tab chlordiazePOXIDE HCl [Librium] 25 mg PO DIRECTED 2 Days #3 capsule Thiamine [Vitamin B-1] 100 mg PO DAILY #30 tab QUEtiapine [SEROquel] 50 mg PO HS #30 tab Continue allopurinoL [Zyloprim] 100 mg PO DAILY #30 tab Metoprolol Succinate [Toprol XL] 25 mg PO BID busPIRone HCl [Buspar] 10 mg PO BID Primidone [Mysoline] 50 mg PO DAILY Ketoconazole 2% Cream [Nizoral 2%] 1 applic TOPICAL BID PRN PRN Reason: flare ups Lacosamide [Vimpat] 200 mg PO BID lamoTRIgine [LaMICtal] 25 mg PO BID 30 Days #60 tab Levothyroxine Sodium [Synthroid] 75 mcg PO DAILY Mirtazapine 15 mg PO HS Hydrocortisone Oint [Hydrocortisone 2.5% Oint] 1 applic TOPICAL BID PRN PRN Reason: flare ups Discontinued lisinopriL [Zestril] 2.5 mg PO DAILY Discharge Medication List allopurinoL [Zyloprim] 100 mg PO DAILY #30 tab 06/21/18 [Rx] Metoprolol Succinate [Toprol XL] 25 mg PO BID 12/24/19 [History] Lacosamide [Vimpat] 200 mg PO BID 12/11/20 [History] lamoTRIgine [LaMICtal] 25 mg PO BID 30 Days #60 tab 08/26/21 [Rx] Hydrocortisone Oint [Hydrocortisone 2.5% Oint] 1 applic TOPICAL BID PRN 09/12/23 [History] Ketoconazole 2% Cream [Nizoral 2%] 1 applic TOPICAL BID PRN 09/12/23 [History] Levothyroxine Sodium [Synthroid] 75 mcg PO DAILY 09/12/23 [History] Mirtazapine 15 mg PO HS 09/12/23 [History] Primidone [Mysoline] 50 mg PO DAILY 09/12/23 [History] busPIRone HCl [Buspar] 10 mg PO BID 09/12/23 [History] Famotidine [Pepcid] 20 mg PO DAILY #30 tab 09/20/23 [Rx] QUEtiapine [SEROquel] 50 mg PO HS #30 tab 09/20/23 [Rx] Thiamine [Vitamin B-1] 100 mg PO DAILY #30 tab 09/20/23 [Rx] chlordiazePOXIDE HCl [Librium] 25 mg PO DIRECTED 2 Days #3 capsule 09/20/23 [Rx] Follow up Appointment(s)/Referral(s): [facility] [NON-STAFF] - 1 Week Aries Ma MD [Primary Care Provider] - 09/27/23 1:30 pm Patient Instructions/Handouts: Seizure/Epilepsy Discharge Instructions & Follow-Up Discharge Disposition: HOME SELF-CARE
== END 2023-09-20 17:31 | disposition home or self-care (01) | DRG 775 ==
LOC: EC 00:10 → 5NMEDONC 02:41 → 3SCARD 10:10 → 2SICU 19:24 → 5NMEDONC 09-19 17:11
PROVIDERS: ADMIT Internal Medicine; ATTEND Internal Medicine
DX: F10.231 Alcohol dependence with withdrawal delirium (principal); D61.818 Other pancytopenia; D75.89 Other specified diseases of blood and blood-forming organs; E16.2 Hypoglycemia, unspecified; E78.5 Hyperlipidemia, unspecified; E86.0 Dehydration; G40.909 Epilepsy, unspecified, not intractable, without status epilepticus; I10 Essential (primary) hypertension; M10.9 Gout, unspecified; G89.29 Other chronic pain; M54.50 Low back pain, unspecified; I42.9 Cardiomyopathy, unspecified; J98.11 Atelectasis; N17.9 Acute kidney failure, unspecified; F32.A Depression, unspecified; S00.81XA Abrasion of other part of head, initial encounter; F41.9 Anxiety disorder, unspecified; R45.1 Restlessness and agitation; W19.XXXA Unspecified fall, initial encounter; Y92.009 Unspecified place in unspecified non-institutional (private) residence as the place of occurrence of the external cause; Z78.1 Physical restraint status; Z79.890 Hormone replacement therapy; Z79.899 Other long term (current) drug therapy; Z86.73 Personal history of transient ischemic attack (TIA), and cerebral infarction without residual deficits; Z71.3 Dietary counseling and surveillance; Z28.21 Immunization not carried out because of patient refusal; Z88.0 Allergy status to penicillin; Z88.2 Allergy status to sulfonamides; Z88.8 Allergy status to other drugs, medicaments and biological substances; Z71.41 Alcohol abuse counseling and surveillance of alcoholic
CPT/HCPCS: 36415; 70450; 71045; 72125; 80048; 80053; 80306; 80320; 82140; 82607; 82746; 83605; 83735; 84132; 85025; 85027; 85610; 85730; 93005; 95816; 96361; 96365; 96366; 96372; 96375; 96376; 99285

== ENCOUNTER 2023-11-20 19:35 | Inpatient (IN) | payer OTHER ==
[2023-11-20] MEDS: SODIUM CHLORIDE 0.9% 1,000 ML IV ONE (19:41)
[2023-11-20] MEDS: LORazepam 2 MG/ML INJ IV STA ×2 (19:42→23:55)
[2023-11-20 20:06] LABS: Basophils % (A) 0 %; Eosinophils % (A) 0 %; HCT 48.1 % (39.0-53.0); Hypochromasia Slight; Lymphocytes # (A) 1.2 k/uL (1.0-4.8); Lymphocytes % (A) 15 %; MCH 34.2 pg (25.0-35.0); MCV 110.5 fL (80.0-100.0); Macrocytosis Marked; Mean Platelet Volume 7.6; Monocytes # (A) 0.4 k/uL (0-1.0); Monocytes % (A) 4 %; Neutrophils # (A) 6.5 k/uL (1.3-7.7); Neutrophils % (A) 79 %; Platelet Count 165 k/uL (150-450); RBC 4.35 m/uL (4.30-5.90); RDW 14.9 % (11.5-15.5); WBC 8.3 k/uL (3.8-10.6)
[2023-11-20 20:07] LABS: HGB 14.9 gm/dL (13.0-17.5)
[2023-11-20 20:17] LABS: INR 0.9 (<1.2); Prothrombin Time 10.2 sec (10.0-12.5)
[2023-11-20 20:23] LABS: Appearance,Urine Clear (Clear); Bilirubin,Urine Negative (Negative); Blood,Urine Negative (Negative); Color,Urine Colorless; Glucose,Urine (UA) Negative (Negative); Ketones,Urine Negative (Negative); Leukocyte Esterase,Urine Negative (Negative); Nitrite,Urine Negative (Negative); PH, Urine 5.5 (5.0-8.0); Protein,Urine Negative (Negative); Specific Gravity,Urine 1.007 (1.001-1.035); Urobilinogen,Urine <2.0 mg/dL (<2.0)
--- NOTE | 2023-11-20 20:23 | ED ---
General Adult HPI - General Chief complaint: Seizure Stated complaint: Seizures Time Seen by Provider: 11/20/23 19:36 Source: EMS Mode of arrival: EMS Limitations: altered mental status - History of Present Illness Initial comments: This patient is a 53-year-old man with history of seizure disorder, also history of previous presentations for alcohol withdrawal/DTs. The patient is sent from home by ambulance. It was reported that the patient was suspected of having seizure. He had been seen earlier by family and he was having isolated jerking movements. He then reportedly may have fallen forward and hit his head in the process of having seizure. When I interviewed the patient, he does appear to be postictal. He is somnolent but arousable though not providing any history. Onset/Timin -: hour(s) Location: head Improves with: none Worsens with: none Associated Symptoms: confusion Treatments Prior to Arrival: none - Related Data Home Medications Medication Instructions Recorded Confirmed Metoprolol Succinate [Toprol XL] 25 mg PO BID 12/24/19 09/12/23 Lacosamide [Vimpat] 200 mg PO BID 12/11/20 09/12/23 Hydrocortisone Oint 1 applic TOPICAL BID PRN 09/12/23 09/12/23 [Hydrocortisone 2.5% Oint] Ketoconazole 2% Cream [Nizoral 2%] 1 applic TOPICAL BID PRN 09/12/23 09/12/23 Levothyroxine Sodium [Synthroid] 75 mcg PO DAILY 09/12/23 09/12/23 Mirtazapine 15 mg PO HS 09/12/23 09/12/23 Primidone [Mysoline] 50 mg PO DAILY 09/12/23 09/12/23 busPIRone HCl [Buspar] 10 mg PO BID 09/12/23 09/12/23 Previous Rx's Medication Instructions Recorded allopurinoL [Zyloprim] 100 mg PO DAILY #30 tab 06/21/18 lamoTRIgine [LaMICtal] 25 mg PO BID 30 Days #60 tab 08/26/21 Famotidine [Pepcid] 20 mg PO DAILY #30 tab 09/20/23 QUEtiapine [SEROquel] 50 mg PO HS #30 tab 09/20/23 Thiamine [Vitamin B-1] 100 mg PO DAILY #30 tab 04/04/24 chlordiazePOXIDE HCl [Librium] 25 mg PO DIRECTED 2 Days #3 09/20/23 capsule Allergies Allergy/AdvReac Type Severity Reaction Status Date / Time amoxicillin Allergy Rash/Hives Verified 11/20/23 20:04 Sulfa (Sulfonamide Allergy Rash/Hives Verified 11/20/23 20:04 Antibiotics) Review of Systems ROS Statement: Those systems with pertinent positive or pertinent negative responses have been documented in the HPI. ROS Other: All systems not noted in ROS Statement are negative. Limitations: ROS unobtainable due to patients medical condition Past Medical History Past Medical History: Chest Pain / Angina, CVA/TIA, Hyperlipidemia, Hypertension, Seizure Disorder, Supraventricular Tachycardia (SVT), Syncope, Thyroid Disorder Additional Past Medical History / Comment(s): Pt states he had a small stroke in the past but no deficits, SVT with ablation, atach, acute encephalopathies/altered mental status associated with alcohol consumption, ET OH, hypothyroid, diverticular disease, chronic low back pain/spasms, last seizure possibly . History of Any Multi-Drug Resistant Organisms: None Reported Past Surgical History: Cardiac Ablation, Heart Catheterization Additional Past Surgical History / Comment(s): Cardiac ablation for SVT, tilt table test, stress test 2017, heart cath 2017, colonoscopy.. Past Anesthesia/Blood Transfusion Reactions: No Reported Reaction Additional Past Anesthesia/Blood Transfusion Reaction / Comment(s): Pt has never had transfusion. Past Psychological History: Anxiety, Depression, Panic Disorder Smoking Status: Never smoker Past Alcohol Use History: Daily Past Drug Use History: None Reported - Past Family History Mother History Unknown: Yes Family Medical History: Musculoskeletal Disorder, Neurologic Disorder Additional Family Medical History / Comment(s): MS. Mother is living. Father History Unknown: Yes Additional Family Medical History / Comment(s): BREATHING PROBLEMS-never goes to the doctor. Father is living. General Exam Limitations: altered mental status General appearance: obtunded Head exam: Present: normocephalic, other (Abrasion to forehead. No palpable deformity. No apparent tenderness) Eye exam: Present: PERRL, EOMI. Absent: scleral icterus, conjunctival injection, periorbital swelling, periorbital tenderness ENT exam: Present: mucous membranes dry Neck exam: Present: normal inspection, full ROM. Absent: tenderness, m eningismus Respiratory exam: Present: normal lung sounds bilaterally. Absent: respiratory distress, wheezes, rales, rhonchi, stridor, chest wall tenderness, accessory muscle use Cardiovascular Exam: Present: tachycardia, normal heart sounds. Absent: systolic murmur, diastolic murmur, rubs, gallop GI/Abdominal exam: Present: soft. Absent: distended, tenderness, guarding, rebound, rigid, mass Extremities exam: Present: normal inspection, normal capillary refill. Absent: pedal edema, calf tenderness Back exam: Present: normal inspection. Absent: CVA tenderness (R), CVA tenderness (L) Neurological exam: Present: altered, CN II-XII intact, reflexes normal. Absent: motor sensory deficit Skin exam: Present: warm, dry, intact, normal color. Absent: rash Course Vital Signs 11/20/23 11/20/23 11/20/23 19:35 19:43 19:46 Temperature 97 F L Pulse Rate 275 H 163 H Respiratory 12 12 Rate Blood Pressure 121/105 85/75 107/86 O2 Sat by Pulse 99 100 Oximetry Fraction of 100 Inspired Oxygen (FIO2) 11/20/23 11/20/23 11/20/23 19:51 20:08 21:14 Temperature Pulse Rate 131 H 126 H 126 H Respiratory 14 10 L 20 Rate Blood Pressure 133/94 139/109 124/79 O2 Sat by Pulse 99 99 100 Oximetry Fraction of Inspired Oxygen (FIO2) 11/21/23 00:00 Temperature Pulse Rate 142 H Respiratory 22 Rate Blood Pressure 108/78 O2 Sat by Pulse 96 Oximetry Fraction of Inspired Oxygen (FIO2) Medical Decision Making - Medical Decision Making Patient is 53-year-old man brought here to have evaluation for altered mental status. Patient reportedly had seizure and may be postictal on arrival. Review of the records reveals she has also been here for previous DVTs requiring Precedex drip. On arrival I am not able to obtain any history. The patient does have evidence of mild trauma to the head therefore is sent for CT of the brain. The patient is started on CIWA protocol empirically. The patient did become more alert and on the return of all of his studies. The patient did acknowledge alcohol use. He is able to follow one-step commands. The patient did subsequently become more tachycardic and had additional Ativan. He continues to score high on CIWA protocol therefore will be admitted to ICU. Case is discussed with Dr. Ma for admission. Case discussed with Josse who is in house overnight for the estate tax examiner service. The patient had chest x-ray which I interpreted as negative for acute infiltrate, pneumothorax, congestive heart failure. There is a loop recorder. The patient had CT of the brain which I interpreted as negative for acute bony injury or acute intracranial hemorrhage. - Lab Data Result diagrams: 11/20/23 19:45 11/20/23 19:45 Lab Results 11/20/23 11/20/23 11/20/23 Range/Units 19:45 19:45 19:45 WBC 8.3 (3.8-10.6) k/uL RBC 4.35 (4.30-5.90) m/uL Hgb 14.9 D (13.0-17.5) gm/dL Hct 48.1 (39.0-53.0) % MCV 110.5 H (80.0-100.0) fL MCH 34.2 (25.0-35.0) pg MCHC 31.0 (31.0-37.0) g/dL RDW 14.9 (11.5-15.5) % Plt Count 165 (150-450) k/uL MPV 7.6 Neutrophils % 79 % Lymphocytes % 15 % Monocytes % 4 % Eosinophils % 0 % Basophils % 0 % Neutrophils # 6.5 (1.3-7.7) k/uL Lymphocytes # 1.2 (1.0-4.8) k/uL Monocytes # 0.4 (0-1.0) k/uL Eosinophils # 0.0 (0-0.7) k/uL Basophils # 0.0 (0-0.2) k/uL Manual Slide Review Performed Polychromasia Present Hypochromasia Slight Macrocytosis Marked A PT 10.2 (10.0-12.5) sec INR 0.9 (<1.2) APTT 19.2 L (22.0-30.0) sec Sodium 144 (137-145) mmol/L Potassium 5.8 H (3.5-5.1) mmol/L Chloride 109 H (98-107) mmol/L Carbon Dioxide 14 L (22-30) mmol/L Anion Gap 21 mmol/L BUN 16 (9-20) mg/dL Creatinine 1.28 H (0.66-1.25) mg/dL Est GFR (CKD-EPI)AfAm 74 (>60 ml/min/1.73 sqM) Est GFR (CKD-EPI)NonAf 64 (>60 ml/min/1.73 sqM) Glucose 158 H (74-99) mg/dL POC Glucose (mg/dL) (70-110) mg/dL POC Glu Emergency Room Clinician ID Calcium 9.5 (8.4-10.2) mg/dL Magnesium (1.6-2.3) mg/dL Total Bilirubin 0.7 (0.2-1.3) mg/dL AST 46 (17-59) U/L ALT 23 (4-49) U/L Alkaline Phosphatase 90 (38-126) U/L Ammonia (<30) umol/L Troponin I (0.000-0.034) ng/mL Total Protein 8.4 H (6.3-8.2) g/dL Albumin 5.5 H (3.5-5.0) g/dL Urine Color Urine Appearance (Clear) Urine pH (5.0-8.0) Ur Specific [place] (1.001-1.035) Urine Protein (Negative) Urine Glucose (UA) (Negative) Urine Ketones (Negative) Urine Blood (Negative) Urine Nitrite (Negative) Urine Bilirubin (Negative) Urine Urobilinogen (<2.0) mg/dL Ur Leukocyte Esterase (Negative) Urine Opiates Screen (NotDetected) Ur Oxycodone Screen (NotDetected) Urine Methadone Screen (NotDetected) Ur Barbiturates Screen (NotDetected) U Tricyclic Antidepress (NotDetected) Ur Phencyclidine Scrn (NotDetected) Ur Amphetamines Screen (NotDetected) U Methamphetamines Scrn (NotDetected) U Benzodiazepines Scrn (NotDetected) Urine Cocaine Screen (NotDetected) U Marijuana (THC) Screen (NotDetected) Serum Alcohol <10 mg/dL 11/20/23 11/20/23 11/20/23 Range/Units 19:45 19:45 20:15 WBC (3.8-10.6) k/uL RBC (4.30-5.90) m/uL Hgb (13.0-17.5) gm/dL Hct (39.0-53.0) % MCV (80.0-100.0) fL MCH (25.0-35.0) pg MCHC (31.0-37.0) g/dL RDW (11.5-15.5) % Plt Count (150-450) k/uL MPV Neutrophils % % Lymphocytes % % Monocytes % % Eosinophils % % Basophils % % Neutrophils # (1.3-7.7) k/uL Lymphocytes # (1.0-4.8) k/uL Monocytes # (0-1.0) k/uL Eosinophils # (0-0.7) k/uL Basophils # (0-0.2) k/uL Manual Slide Review Polychromasia Hypochromasia Macrocytosis PT (10.0-12.5) sec INR (<1.2) APTT (22.0-30.0) sec Sodium (137-145) mmol/L Potassium (3.5-5.1) mmol/L Chloride (98-107) mmol/L Carbon Dioxide (22-30) mmol/L Anion Gap mmol/L BUN (9-20) mg/dL Creatinine (0.66-1.25) mg/dL Est GFR (CKD-EPI)AfAm (>60 ml/min/1.73 sqM) Est GFR (CKD-EPI)NonAf (>60 ml/min/1.73 sqM) Glucose (74-99) mg/dL POC Glucose (mg/dL) (70-110) mg/dL POC Glu Emergency Room Clinician ID Calcium (8.4-10.2) mg/dL Magnesium (1.6-2.3) mg/dL Total Bilirubin (0.2-1.3) mg/dL AST (17-59) U/L ALT (4-49) U/L Alkaline Phosphatase (38-126) U/L Ammonia 78 H (<30) umol/L Troponin I 0.019 (0.000-0.034) ng/mL Total Protein (6.3-8.2) g/dL Albumin (3.5-5.0) g/dL Urine Color Colorless Urine Appearance Clear (Clear) Urine pH 5.5 (5.0-8.0) Ur Specific [place] 1.007 (1.001-1.035) Urine Protein Negative (Negative) Urine Glucose (UA) Negative (Negative) Urine Ketones Negative (Negative) Urine Blood Negative (Negative) Urine Nitrite Negative (Negative) Urine Bilirubin Negative (Negative) Urine Urobilinogen <2.0 (<2.0) mg/dL Ur Leukocyte Esterase Negative (Negative) Urine Opiates Screen Not Detected (NotDetected) Ur Oxycodone Screen Not Detected (NotDetected) Urine Methadone Screen Not Detected (NotDetected) Ur Barbiturates Screen Not Detected (NotDetected) U Tricyclic Antidepress Not Detected (NotDetected) Ur Phencyclidine Scrn Not Detected (NotDetected) Ur Amphetamines Screen Not Detected (NotDetected) U Methamphetamines Scrn Not Detected (NotDetected) U Benzodiazepines Scrn Not Detected (NotDetected) Urine Cocaine Screen Not Detected (NotDetected) U Marijuana (THC) Screen Not Detected (NotDetected) Serum Alcohol mg/dL 11/20/23 11/20/23 Range/Units 20:15 21:35 WBC (3.8-10.6) k/uL RBC (4.30-5.90) m/uL Hgb (13.0-17.5) gm/dL Hct (39.0-53.0) % MCV (80.0-100.0) fL MCH (25.0-35.0) pg MCHC (31.0-37.0) g/dL RDW (11.5-15.5) % Plt Count (150-450) k/uL MPV Neutrophils % % Lymphocytes % % Monocytes % % Eosinophils % % Basophils % % Neutrophils # (1.3-7.7) k/uL Lymphocytes # (1.0-4.8) k/uL Monocytes # (0-1.0) k/uL Eosinophils # (0-0.7) k/uL Basophils # (0-0.2) k/uL Manual Slide Review Polychromasia Hypochromasia Macrocytosis PT (10.0-12.5) sec INR (<1.2) APTT (22.0-30.0) sec Sodium (137-145) mmol/L Potassium (3.5-5.1) mmol/L Chloride (98-107) mmol/L Carbon Dioxide (22-30) mmol/L Anion Gap mmol/L BUN (9-20) mg/dL Creatinine (0.66-1.25) mg/dL Est GFR (CKD-EPI)AfAm (>60 ml/min/1.73 sqM) Est GFR (CKD-EPI)NonAf (>60 ml/min/1.73 sqM) Glucose (74-99) mg/dL POC Glucose (mg/dL) 114 H (70-110) mg/dL POC Glu Emergency Room Clinician ID Austin May Calcium (8.4-10.2) mg/dL Magnesium 2.3 (1.6-2.3) mg/dL Total Bilirubin (0.2-1.3) mg/dL AST (17-59) U/L ALT (4-49) U/L Alkaline Phosphatase (38-126) U/L Ammonia (<30) umol/L Troponin I (0.000-0.034) ng/mL Total Protein (6.3-8.2) g/dL Albumin (3.5-5.0) g/dL Urine Color Urine Appearance (Clear) Urine pH (5.0-8.0) Ur Specific [place] (1.001-1.035) Urine Protein (Negative) Urine Glucose (UA) (Negative) Urine Ketones (Negative) Urine Blood (Negative) Urine Nitrite (Negative) Urine Bilirubin (Negative) Urine Urobilinogen (<2.0) mg/dL Ur Leukocyte Esterase (Negative) Urine Opiates Screen (NotDetected) Ur Oxycodone Screen (NotDetected) Urine Methadone Screen (NotDetected) Ur Barbiturates Screen (NotDetected) U Tricyclic Antidepress (NotDetected) Ur Phencyclidine Scrn (NotDetected) Ur Amphetamines Screen (NotDetected) U Methamphetamines Scrn (NotDetected) U Benzodiazepines Scrn (NotDetected) Urine Cocaine Screen (NotDetected) U Marijuana (THC) Screen (NotDetected) Serum Alcohol mg/dL Disposition Clinical Impression: Seizure disorder, Altered mental status, Alcohol withdrawal Disposition: [facility] Condition: Serious Is patient prescribed a controlled substance at d/c from ED?: No Referrals: Aries Ma MD [Primary Care Provider] - 1-2 days
[2023-11-20 20:28] LABS: Polychromasia Present
[2023-11-20 20:30] LABS: Partial Thromboplastin Time 19.2 sec (22.0-30.0)
[2023-11-20 20:32] LABS: ALT 23 U/L (4-49); African American GFR (CKD) 74 (>60 ml/min/1.73 sqM); Albumin 5.5 g/dL (3.5-5.0); Alcohol <10 mg/dL; Anion Gap 21 mmol/L; Blood Urea Nitrogen 16 mg/dL (9-20); Calcium 9.5 mg/dL (8.4-10.2); Carbon Dioxide 14 mmol/L (22-30); Chloride 109 mmol/L (98-107); Glucose 158 mg/dL (74-99); Non-African American GFR(CKD) 64 (>60 ml/min/1.73 sqM); Sodium 144 mmol/L (137-145); Total Bilirubin 0.7 mg/dL (0.2-1.3); Total Protein 8.4 g/dL (6.3-8.2)
[2023-11-20 20:34] LABS: Amphetamine Screen,Urine Not Detected (NotDetected); Barbiturate Screen,Urine Not Detected (NotDetected); Benzodiazepines Screen,Urine Not Detected (NotDetected); Cocaine Screen,Urine Not Detected (NotDetected); Methadone Screen, Urine Not Detected (NotDetected); Opiate Screen,Urine Not Detected (NotDetected); Oxycodone Screen, Urine Not Detected (NotDetected); Phencyclidine Screen,Urine Not Detected (NotDetected); Tricyclic Antidepressant,Urine Not Detected (NotDetected); Urn Cannabinoid Scrn Not Detected (NotDetected)
[2023-11-20 20:34] LABS: AST 46 U/L (17-59); Alkaline Phosphatase 90 U/L (38-126); Potassium 5.8 mmol/L (3.5-5.1)
--- NOTE | 2023-11-20 20:59 | CT ---
EXAMINATION TYPE: CT brain wo con CT DLP: 1197.4 mGycm, Automated exposure control for dose reduction was used. DATE OF EXAM: 11/20/2023 8:08 PM COMPARISON: None. CLINICAL INDICATION:Male, 53 years old with history of Altered mental status, Seizures, AMS. TECHNIQUE: Brain: Axial CT images of the brain were obtained with coronal and sagittal reformats created and rev iewed. Contrast used: None. Oral contrast used: None. FINDINGS: Extra-axial spaces: No abnormal extra-axial fluid collections. Basilar cisterns are patent. Ventricular system: Ventricles appear mildly dilated in proportion to the degree of cerebral atrophy. Cerebral parenchyma: No increased attenuation to suggest acute intraparenchymal hemorrhage. The gra y-white matter interface appears maintained. Mild generalized brain atrophy. Scattered hypoattenuat ing areas are seen within the cerebral white matter, nonspecific but most often seen with chronic jenni rovascular ischemic changes; mild in degree. Cerebellum: No acute abnormality. Mass effect: No evidence of mass effect or midline shift. Intracranial vasculature: Unremarkable Soft tissues: No acute or concerning abnormality. Visualized orbits: Orbital contents appear grossly intact. Calvarium/osseous structures: No evidence of calvarial fracture. Paranasal sinuses and mastoid air cells: Clear. MRI is more sensitive for detecting acute processes such as infarct, and may be considered if clinica lly warranted. IMPRESSION: 1. No CT evidence of an acute intracranial abnormality. 2. Atrophy and chronic microvascular ischemic white matter changes.
[2023-11-20] MEDS: SODIUM CHLORIDE 0.9% 1,000 ML IV STA (21:02)
[2023-11-20 21:46] LABS: Glucose,Whole Blood 114 mg/dL (70-110)
[2023-11-20] MEDS: LORazepam 2 MG/ML INJ IV PRN (23:55)
--- NOTE | 2023-11-21 00:04 | XR ---
EXAM: XR chest 1V portable CLINICAL INDICATION:Male, 53 years old with history of altered mental status; [facility] COMPARISON: None. TECHNIQUE: Chest single view. FINDINGS: Cardiomediastinum: Cardiac silhouette appears normal in size. Unremarkable mediastinal silhouette. Loop recorder projects over the left hilum. Monitor leads over t he chest. Vasculature: No increased pulmonary vasculature. Lungs/pleura: No consolidation, sizeable effusion, or visible pneumothorax. Bones/soft tissues: Bony thorax appears grossly intact as seen. Regional soft tissues appear unremarkable. IMPRESSION: No acute cardiopulmonary findings.
[2023-11-21] MEDS ORDERED: ARTIFICIAL TEARS-HYPROMELLOSE DROPS 15 ML BTL BOTH EYES PRN (00:37)
[2023-11-21] MEDS ORDERED: NALOXONE 0.4 MG/ML 1 ML VIAL IV PRN (00:37)
--- NOTE | 2023-11-21 02:45 | P.CNPUL ---
History of Present Illness Consult date: 11/21/23 Requesting physician: Jerrod Sullivan Reason for consult: other (Alcohol withdrawal delirium tremens) Chief complaint: Altered mental status, witnessed seizure History of present illness: Patient is a 53-year-old white male with past medical history significant for alcoholism, seizure disorder, CVA/TIA, hypertension, hyperlipidemia, SVT, hypothyroidism, among other things. Patient was brought in by EMS to the emergency department last night. He was witnessed to have a fall and suspected seizure-like activity by his mother at home. He has an abrasion on his left forehead. He is also suspected of having alcohol withdrawal. He had a recent hospitalization back in August, for similar presentation. Brain CT done on arrival did not show any acute intracranial process. He is currently in the emergency department, room 1. He is altered. He is restless and wheeling in bed. He has generalized tremors. Diaphoretic. Tachycardic on bedside monitor. No further seizure activity noted by nurses. He does have alcoholism, unknown when last drink. Serum alcohol level was less than 10 on arrival. He is on the CIWA protocol. Most recent CIWA score was 21. He has received a total of 6 mg of Ativan so far. On his previous admission, he required Precedex infusion and admission to the intensive care unit at that time. CBC unremarkable. Initial BMP: Sodium 144, potassium 5.8, chloride 109, serum CO2 14, anion gap 21, BUN 16, creatinine 1.28, glucose 158. Mag 2.3. Saline infusing at 130 MLS per hour. LFTs not elevated. Total bilirubin 0.7. Ammonia level 78. Urinalysis n ot remarkable for UTI. Afebrile. Urine toxicology screen negative. Patient's suspected alcohol withdrawal will be treated in the intensive care unit. Review of Systems ROS unobtainable: due to mental status Past Medical History Past Medical History: Chest Pain / Angina, CVA/TIA, Hyperlipidemia, Hypertension, Seizure Disorder, Supraventricular Tachycardia (SVT), Syncope, Thyroid Disorder Additional Past Medical History / Comment(s): Pt states he had a small stroke in the past but no deficits, SVT with ablation, atach, acute encephalopathies/altered mental status associated with alcohol consumption, ETOH, hypothyroid, diverticular disease, chronic low back pain/spasms, last seizure possibly . History of Any Multi-Drug Resistant Organisms: None Reported Past Surgical History: Cardiac Ablation, Heart Catheterization Additional Past Surgical History / Comment(s): Cardiac ablation for SVT, tilt table test, stress test 2017, heart cath 2017, colonoscopy.. Past Anesthesia/Blood Transfusion Reactions: No Reported Reaction Additional Past Anesthesia/Blood Transfusion Reaction / Comment(s): Pt has never had transfusion. Past Psychological History: Anxiety, Depression, Panic Disorder Smoking Status: Never smoker Past Alcohol Use History: Daily Past Drug Use History: None Reported - Past Family History Mother History Unknown: Yes Family Medical History: Musculoskeletal Disorder, Neurologic Disorder Additional Family Medical History / Comment(s): MS. Mother is living. Father History Unknown: Yes Additional Family Medical History / Comment(s): BREATHING PROBLEMS-never goes to the doctor. Father is living. Medications and Allergies Home Medications Medication Instructions Recorded Confirmed Type allopurinoL [Zyloprim] 100 mg PO DAILY #30 tab 06/21/18 09/12/23 Rx Metoprolol Succinate [Toprol XL] 25 mg PO BID 12/24/19 09/12/23 History Lacosamide [Vimpat] 200 mg PO BID 12/11/20 09/12/23 History lamoTRIgine [LaMICtal] 25 mg PO BID 30 Days #60 tab 08/26/21 09/12/23 Rx Hydrocortisone Oint 1 applic TOPICAL BID PRN 09/12/23 09/12/23 History [Hydrocortisone 2.5% Oint] Ketoconazole 2% Cream [Nizoral 2%] 1 applic TOPICAL BID PRN 09/12/23 09/12/23 History Levothyroxine Sodium [Synthroid] 75 mcg PO DAILY 09/12/23 09/12/23 History Mirtazapine 15 mg PO HS 09/12/23 09/12/23 History Primidone [Mysoline] 50 mg PO DAILY 09/12/23 09/12/23 History busPIRone HCl [Buspar] 10 mg PO BID 09/12/23 09/12/23 History Famotidine [Pepcid] 20 mg PO DAILY #30 tab 09/20/23 Rx QUEtiapine [SEROquel] 50 mg PO HS #30 tab 09/20/23 Rx Thiamine [Vitamin B-1] 100 mg PO DAILY #30 tab 04/04/24 Rx chlordiazePOXIDE HCl [Librium] 25 mg PO DIRECTED 2 Days #3 09/20/23 Rx capsule Allergies Allergy/AdvReac Type Severity Reaction Status Date / Time amoxicillin Allergy Rash/Hives Verified 11/20/23 20:04 Sulfa (Sulfonamide Allergy Rash/Hives Verified 11/20/23 20:04 Antibiotics) Physical Exam Vitals: Vital Signs Temp Pulse Resp BP Pulse Ox FiO2 11/21/23 00:00 142 H 22 108/78 96 11/20/23 21:14 126 H 20 124/79 100 11/20/23 20:08 126 H 10 L 139/109 99 11/20/23 19:51 131 H 14 133/94 99 11/20/23 19:46 163 H 12 107/86 100 11/20/23 19:43 85/75 11/20/23 19:35 97 F L 275 H 12 121/105 99 100 Intake and Output 11/20/23 11/20/23 11/21/23 14:59 22:59 06:59 Other: Weight 58.967 kg GENERAL EXAM: Unable to participate in interview, restless, wheeling in bed, general visible tremors, diaphoretic, tachycardic. No current seizure-like activity. HEAD: Normocephalic. Left forehead abrasion EYES: Normal reaction of pupils, equal size. NOSE: Clear with pink turbinates. THROAT: No erythema or exudates. Edentulous. NECK: No masses, no JVD. CHEST: No chest wall deformity. LUNGS: Equal air entry with no crackles, wheeze, rhonchi or dullness. Currently on 2 L/min nasal cannula. No conversational dyspnea or accessory muscle use.. CVS: S1 and S2 normal with no audible murmur, regular rhythm. No extra heart sounds. Tachycardic. ABDOMEN: No hepatosplenomegaly, active bowel sounds, no guarding or rigidity. SPINE: No scoliosis or deformity SKIN: No rashes CENTRAL NERVOUS SYSTEM: No focal deficits, tone is normal in all 4 extremities. EXTREMITIES: There is no peripheral edema, clubbing, or cyanosis. Peripheral pulses are intact. Results - Laboratory Findings CBC and BMP: 11/20/23 19:45 11/20/23 19:45 PT/INR, D-dimer PT 10.2 sec (10.0-12.5) 11/20/23 19:45 INR 0.9 (<1.2) 11/20/23 19:45 Abnormal lab findings: Abnormal Labs 11/20/23 11/20/23 11/20/23 19:45 19:45 19:45 MCV 110.5 H Macrocytosis Marked A APTT 19.2 L Potassium 5.8 H Chloride 109 H Carbon Dioxide 14 L Creatinine 1.28 H Glucose 158 H POC Glucose (mg/dL) Ammonia Total Protein 8.4 H Albumin 5.5 H 11/20/23 11/20/23 19:45 21:35 MCV Macrocytosis APTT Potassium Chloride Carbon Dioxide Creatinine Glucose POC Glucose (mg/dL) 114 H Ammonia 78 H Total Protein Albumin - Diagnostic Findings Chest x-ray: image reviewed Assessment and Plan Assessment: Suspected acute alcohol withdrawal delirium tremens, unsure last known drink and serum EtOH level less than 10 on arrival, patient does have history of al coholism and has had a recent hospitalization with similar presentation August, which required admission to the intensive care unit. Suspected seizure, with history of seizure disorder Fall with abrasion to left forehead Acute hypoxemic respiratory failure, currently on 2 L/min nasal cannula, likely secondary to DTs, chest x-ray does not show any focal infiltrates or evidence of pneumonia. No reported aspiration events. Acute kidney injury, likely secondary to severe dehydration and ATN Anion gap metabolic acidosis Hyperammonemia History of alcoholism History of CVA/TIA History of hypertension History of hyperlipidemia History of SVT with previous ablation History of syncope History of hypothyroidism History of anxiety and depression Plan: Patient is being admitted to the intensive care unit for management of his presumptive DTs. Serum EtOH level less than 10 on arrival. Unknown last drink. Currently on the CIWA protocol. Documented CIWA score 21. Patient's currently received only a 6 mg of Ativan. Continue CIWA protocol. Continue seizure precautions. Antiepileptics restarted. CT of the brain noted. Neurology consulted. Continue supplemental oxygen and wean as tolerated. Urine drug screen unremarkable Continue IV maintenance fluids Vitamin B1 supplementation Protonix for GI prophylaxis Heparin for DVT prophylaxis Overall prognosis is guarded, he has had previous admission for alcohol withdrawal delirium tremens and previous intensive care unit admission. Further recommendations are forthcoming. Time with Patient: Greater than 30
[2023-11-21] MEDS: LORazepam 2 MG/ML INJ IV PRN ×2 (04:30→10:26)
[2023-11-21] MEDS: HALOPERIDOL LACTATE 5 MG/ML 1 ML VIAL IVP ONE ×2 (05:09→22:03)
[2023-11-21] MEDS: LORazepam 2 MG/ML INJ IV STA (05:09)
[2023-11-21] MEDS: LACTULOSE 20 GM/30 ML CUP PO ONE (05:18)
[2023-11-21] MEDS: METOPROLOL SUCCINATE (ER) 25 MG TAB.ER.24H PO STA (05:39)
[2023-11-21 06:29] LABS: Basophils % (A) 0 %; Eosinophils % (A) 1 %; HGB 12.9 gm/dL (13.0-17.5); Lymphocytes # (A) 0.9 k/uL (1.0-4.8); Lymphocytes % (A) 14 %; MCH 34.6 pg (25.0-35.0); MCHC 32.2 g/dL (31.0-37.0); MCV 107.5 fL (80.0-100.0); Mean Platelet Volume 7.8; Monocytes # (A) 0.4 k/uL (0-1.0); Monocytes % (A) 5 %; Neutrophils # (A) 5.1 k/uL (1.3-7.7); Neutrophils % (A) 79 %; Platelet Count 157 k/uL (150-450); RBC 3.72 m/uL (4.30-5.90); RDW 14.7 % (11.5-15.5); WBC 6.5 k/uL (3.8-10.6)
[2023-11-21 06:42] LABS: Macrocytosis Marked
[2023-11-21 06:49] LABS: African American GFR (CKD) >90 (>60 ml/min/1.73 sqM); Anion Gap 6 mmol/L; Blood Urea Nitrogen 13 mg/dL (9-20); Calcium 8.2 mg/dL (8.4-10.2); Carbon Dioxide 22 mmol/L (22-30); Chloride 115 mmol/L (98-107); Glucose 115 mg/dL (74-99); Non-African American GFR(CKD) >90 (>60 ml/min/1.73 sqM); Potassium 4.2 mmol/L (3.5-5.1); Sodium 143 mmol/L (137-145)
[2023-11-21] MEDS: METOPROLOL TARTRATE 5 MG/5 ML VIAL IVP STA (08:22)
[2023-11-21] MEDS ORDERED: METOPROLOL SUCCINATE (ER) 25 MG TAB.ER.24H PO SCH (09:00)
[2023-11-21] MEDS: HEPARIN SODIUM,PORCINE 5,000 UNIT/ML 1 ML VIAL SQ SCH (10:11)
[2023-11-21] MEDS: THIAMINE 100 MG TAB PO SCH (10:11)
[2023-11-21] MEDS: lamoTRIgine 25 MG TAB PO SCH ×2 (10:11→21:14)
[2023-11-21] MEDS: PANTOPRAZOLE 40 MG/10 ML VIAL IVP SCH (10:11)
[2023-11-21] MEDS: DOCUSATE 100 MG CAP PO SCH (10:12)
[2023-11-21] MEDS: FAMOTIDINE 20 MG/2 ML VIAL IV SCH (10:12)
[2023-11-21] MEDS: LACOSAMIDE 50 MG TABLET PO SCH (10:12)
--- NOTE | 2023-11-21 11:34 | P.HPIM ---
History of Present Illness H&P Date: 11/21/23 This is a 53-year-old patient well-known to my services presented to the ER with concerns of Alcohol withdrawal's and questionable seizure. Patient has a past medical history of EtOH abuse along with seizures. Patient noted to have a laceration above left eye. Additional medical history includes CVA, hyperlipidemia, hypertension, SVT, syncope and cardiac ablation.CT of head completed showing no evidence of acute intracranial abnormality atrophy and chronic microvascular ischemia white matter changes.Chest x-ray completed showing no acute cardiopulmonary findings.EKG completed showing sinus t achycardia past with atrial flutter heart rate 147.UA negative. Drug screen negative. Serum alcohol less than 10 at this time patient will be admitted. Patient started on alcohol child protocol. Continue seizure precautions. Neurology, cardiology and critical care services have been consulted. At this time patient is sitting in bed sitter at bedside. Patient having some tremors Review of Systems Please refer to HPI otherwise unremarkable Past Medical History Past Medical History: Chest Pain / Angina, CVA/TIA, Hyperlipidemia, Hypertension, Seizure Disorder, Supraventricular Tachycardia (SVT), Syncope, Thyroid Disorder Additional Past Medical History / Comment(s): Pt states he had a small stroke in the past but no deficits, SVT with ablation, atach, acute encephalopathies/altered mental status associated with alcohol consumption, ETOH, hypothyroid, diverticular disease, chronic low back pain/spasms, last seizure possibly . History of Any Multi-Drug Resistant Organisms: None Reported Past Surgical History: Cardiac Ablation, Heart Catheterization Additional Past Surgical History / Comment(s): Cardiac ablation for SVT, tilt table test, stress test 2017, heart cath 2017, colonoscopy.. Past Anesthesia/Blood Transfusion Reactions: No Reported Reaction Additional Past Anesthesia/Blood Transfusion Reaction / Comment(s): Pt has never had transfusion. Past Psychological History: Anxiety, Depression, Panic Disorder Smoking Status: Never smoker Past Alcohol Use History: Daily Past Drug Use History: None Reported - Past Family History Mother History Unknown: Yes Family Medical History: Musculoskeletal Disorder, Neurologic Disorder Additional Family Medical History / Comment(s): MS. Mother is living. Father History Unknown: Yes Additional Family Medical History / Comment(s): BREATHING PROBLEMS-never goes to the doctor. Father is living. Medications and Allergies Home Medications Medication Instructions Recorded Confirmed Type allopurinoL [Zyloprim] 100 mg PO DAILY #30 tab 06/21/18 11/21/23 Rx Metoprolol Succinate [Toprol XL] 25 mg PO BID 12/24/19 11/21/23 History Lacosamide [Vimpat] 200 mg PO BID 12/11/20 11/21/23 History lamoTRIgine [LaMICtal] 25 mg PO BID 30 Days #60 tab 08/26/21 11/21/23 Rx Levothyroxine Sodium [Synthroid] 75 mcg PO DAILY 09/12/23 11/21/23 History Mirtazapine 15 mg PO HS 09/12/23 11/21/23 History Primidone [Mysoline] 50 mg PO DAILY 09/12/23 11/21/23 History busPIRone HCl [Buspar] 10 mg PO BID 09/12/23 11/21/23 History Famotidine [Pepcid] 20 mg PO DAILY #30 tab 09/20/23 11/21/23 Rx QUEtiapine [SEROquel] 50 mg PO HS #30 tab 09/20/23 11/21/23 Rx Thiamine [Vitamin B-1] 100 mg PO DAILY #30 tab 09/20/23 11/21/23 Rx Allergies Allergy/AdvReac Type Severity Reaction Status Date / Time amoxicillin Allergy Rash/Hives Verified 11/21/23 10:40 Sulfa (Sulfonamide Allergy Rash/Hives Verified 11/21/23 10:40 Antibiotics) Physical Exam Vitals: Vital Signs Temp Pulse Pulse Resp BP Pulse Ox FiO2 11/21/23 11:00 142 H 16 107/84 98 11/21/23 10:00 142 H 16 115/89 99 11/21/23 09:32 147 H 23 11/21/23 09:00 137 H 20 112/64 98 11/21/23 08:00 134 H 20 159/115 97 11/21/23 06:30 147 H 15 132/90 95 11/21/23 06:20 149 H 20 132/90 96 11/21/23 06:10 152 H 13 132/90 93 L 11/21/23 06:00 151 H 10 L 114/96 94 L 11/21/23 05:50 152 H 10 L 95 11/21/23 05:49 97.6 F 151 H 33 H 114/96 94 L 11/21/23 05:00 154 H 152 H 22 147/97 96 11/21/23 02:23 135 H 20 104/75 100 11/21/23 00:00 142 H 22 108/78 96 11/20/23 21:14 126 H 20 124/79 100 11/20/23 20:08 126 H 10 L 139/109 99 11/20/23 19:51 131 H 14 133/94 99 11/20/23 19:46 163 H 12 107/86 100 11/20/23 19:43 85/75 11/20/23 19:35 97 F L 275 H 12 121/105 99 100 Intake and Output 11/20/23 11/21/23 11/21/23 22:59 06:59 14:59 Output Total 300 900 Balance -300 -900 Output: Urine 300 900 Uretheral (Benitez) 900 Other: Voiding Method Indwelling Catheter Indwelling Catheter Weight 58.967 kg Head normocephalic Neck supple Lungs clear to auscultation bilaterally no wheezing or crackles Heart regular rate and rhythm S1-S2, no rub or gallop Abdomen is soft nontender nondistended positive bowel sounds no hepatosplenomegaly Extremities no edema Neuro alert and orientated to 1 Intermittent confusion tremors Results CBC & Chem 7: 11/21/23 06:07 11/21/23 06:07 Labs: Abnormal Lab Results - Last 24 Hours (Table) 11/20/23 11/20/23 11/20/23 Range/Units 19:45 19:45 19:45 RBC (4.30-5.90) m/uL Hgb (13.0-17.5) gm/dL MCV 110.5 H (80.0-100.0) fL Lymphocytes # (1.0-4.8) k/uL Macrocytosis Marked A APTT 19.2 L (22.0-30.0) sec Potassium 5.8 H (3.5-5.1) mmol/L Chloride 109 H (98-107) mmol/L Carbon Dioxide 14 L (22-30) mmol/L Creatinine 1.28 H (0.66-1.25) mg/dL Glucose 158 H (74-99) mg/dL POC Glucose (mg/dL) (70-110) mg/dL Calcium (8.4-10.2) mg/dL Ammonia (<30) umol/L Total Protein 8.4 H (6.3-8.2) g/dL Albumin 5.5 H (3.5-5.0) g/dL 11/20/23 11/20/23 11/21/23 Range/Units 19:45 21:35 06:07 RBC 3.72 L (4.30-5.90) m/uL Hgb 12.9 L (13.0-17.5) gm/dL MCV 107.5 H (80.0-100.0) fL Lymphocytes # 0.9 L (1.0-4.8) k/uL Macrocytosis Marked A APTT (22.0-30.0) sec Potassium (3.5-5.1) mmol/L Chloride (98-107) mmol/L Carbon Dioxide (22-30) mmol/L Creatinine (0.66-1.25) mg/dL Glucose (74-99) mg/dL POC Glucose (mg/dL) 114 H (70-110) mg/dL Calcium (8.4-10.2) mg/dL Ammonia 78 H (<30) umol/L Total Protein (6.3-8.2) g/dL Albumin (3.5-5.0) g/dL 11/21/23 Range/Units 06:07 RBC (4.30-5.90) m/uL Hgb (13.0-17.5) gm/dL MCV (80.0-100.0) fL Lymphocytes # (1.0-4.8) k/uL Macrocytosis APTT (22.0-30.0) sec Potassium (3.5-5.1) mmol/L Chloride 115 H (98-107) mmol/L Carbon Dioxide (22-30) mmol/L Creatinine (0.66-1.25) mg/dL Glucose 115 H (74-99) mg/dL POC Glucose (mg/dL) (70-110) mg/dL Calcium 8.2 L (8.4-10.2) mg/dL Ammonia (<30) umol/L Total Protein (6.3-8.2) g/dL Albumin (3.5-5.0) g/dL Assessment and Plan Assessment: 1. Alcohol withdrawals. Patient maintained on alcohol withdrawal protocol 2. Possible seizure 3. Fall with abrasion to left forehead 4. SVT. Cardiology services have been consulted 5. History of acute kidney injury 6. History of alcohol abuse 7. History of CVA 8. History of essential hypertension 9. History of hyperlipidemia 10. History of SVT with previous ablation 11. History of syncope 12. History of hypothyroidism 13. History of anxiety and depression DVT prophylaxis heparin. GI prophylaxis Protonix Patient to be admitted to the intensive care unit Continue seizure precautions [facility] Neu[facility], cardiology and critical care service is consulted Repeat labs ordered Time with Patient: Greater than 30 (Greater than 60% of the total time spent in counseling and coordination of care)
[2023-11-21] MEDS: LORazepam 1 MG/0.5 ML VIAL IV PRN ×2 (12:59→18:54)
[2023-11-21] MEDS ORDERED: HEPARIN SODIUM 1,000 UN/ML (10ML VL) IV PRN (15:19)
[2023-11-21] MEDS: HEPARIN SOD,PORK IN 0.45% NACL 25,000 UNIT in 0.45% NACL 1 250ML.BAG IV SCH (15:31)
[2023-11-21] MEDS: HEPARIN SODIUM 1,000 UN/ML (10ML VL) IV ONE (15:34)
[2023-11-21] MEDS: DILTIAZEM 125 MG in SODIUM CHLORIDE 0.9% 100 ML IV SCH (15:47)
[2023-11-21] MEDS: SODIUM CHLORIDE 0.9% 1,000 ML IV SCH (15:47)
--- NOTE | 2023-11-21 16:38 | P.CNNES ---
History of Present Illness Consult date: 11/21/23 Requesting physician: Jerrod Sullivan Reason for Consult: altered mental status. acute seizure History of Present Illness: This is a 53-year-old gentleman with history of seizure, psychosis, alcohol use who presented emergency department via EMS for suspected seizure. History is obtained from medical record. It seems that family earlier yesterday felt the patient was having jerking movement and has fallen forward has had in the process of seizure per the ED team. Was felt that he was in postictal state per the ED team. Patient is unable to provide a history since he is very confused. Initially he stated that he is not drinking then when the primary team saw him he stated that he did drink but then later he notified him that he is not drinking. Is on Vimpat 200 mg twice daily, Lamictal 25 mg twice daily. Of note the patient is known to our neurology service and we seen him multiple times and the last time he was evaluated by our neurology team was on 09/17/[address] Chakraborty because of altered mental status. My colleague felt he had delirium due to hypoglycemia and hospital induced. No seizure on EEG. Patient had multiple EEGs in our facility as well as prolonged EEG and were negative for any seizure or discharges. He is in ED the patient got numerous Ativan for CIWA protocol and per ED she ga ve hime 3mg so far in the morning. Some of the workup during this hospital visit consisted of: Has been severely tachycardic on presentation initially in the 275 then in the 150s to 160s MCV is 110 and repeat is 107 Calcium is 5.8 Creatinine is 1.28 and repeat is normal Initial serum glucose is 158 Calcium is normal Magnesium is 2.3 AST ALT is within normal limits Ammonia is 78 Urine drug screen is not detected and the urine alcohol is less than 10. CT of the head is reported as no CT evidence of acute intracranial abnormality. Atrophy and chronic microvascular ischemic white matter changes. Reviewed the CT and I agree with the report. EKG is reported as atrial flutter/tachycardia with RVR. Review of Systems Limited. Past Medical History Past Medical History: Chest Pain / Angina, CVA/TIA, Hyperlipidemia, Hypertensio n, Seizure Disorder, Supraventricular Tachycardia (SVT), Syncope, Thyroid Disorder Additional Past Medical History / Comment(s): Pt states he had a small stroke in the past but no deficits, SVT with ablation, atach, acute encephalopathies/altered mental status associated with alcohol consumption, ETOH, hypothyroid, diverticular disease, chronic low back pain/spasms, last s eizure possibly . History of Any Multi-Drug Resistant Organisms: None Reported Past Surgical History: Cardiac Ablation, Heart Catheterization Additional Past Surgical History / Comment(s): Cardiac ablation for SVT, tilt table test, stress test 2017, heart cath 2017, colonoscopy.. Past Anesthesia/Blood Transfusion Reactions: No Reported Reaction Additional Past Anesthesia/Blood Transfusion Reaction / Comment(s): Pt has never had transfusion. Past Psychological History: Anxiety, Depression, Panic Disorder Smoking Status: Never smoker Past Alcohol Use History: Daily Past Drug Use History: None Reported - Past Family History Mother History Unknown: Yes Family Medical History: Musculoskeletal Disorder, Neurologic Disorder Additional Family Medical History / Comment(s): MS. Mother is living. Father History Unknown: Yes Additional Family Medical History / Comment(s): BREATHING PROBLEMS-never goes to the doctor. Father is living. Medications and Allergies Home Medications Medication Instructions Recorded Confirmed Type allopurinoL [Zyloprim] 100 mg PO DAILY #30 tab 06/21/18 11/21/23 Rx Metoprolol Succinate [Toprol XL] 25 mg PO BID 12/24/19 11/21/23 History Lacosamide [Vimpat] 200 mg PO BID 12/11/20 11/21/23 History lamoTRIgine [LaMICtal] 25 mg PO BID 30 Days #60 tab 08/26/21 11/21/23 Rx Levothyroxine Sodium [Synthroid] 75 mcg PO DAILY 09/12/23 11/21/23 History Mirtazapine 15 mg PO HS 09/12/23 11/21/23 History Primidone [Mysoline] 50 mg PO DAILY 09/12/23 11/21/23 History busPIRone HCl [Buspar] 10 mg PO BID 09/12/23 11/21/23 History Famotidine [Pepcid] 20 mg PO DAILY #30 tab 09/20/23 11/21/23 Rx QUEtiapine [SEROquel] 50 mg PO HS #30 tab 09/20/23 11/21/23 Rx Thiamine [Vitamin B-1] 100 mg PO DAILY #30 tab 09/20/23 11/21/23 Rx Allergies Allergy/AdvReac Type Severity Reaction Status Date / Time amoxicillin Allergy Rash/Hives Verified 11/21/23 10:40 Sulfa (Sulfonamide Allergy Rash/Hives Verified 11/21/23 10:40 Antibiotics) Physical Examination - Vital Signs Vital Signs: Vital Signs Temp Pulse Pulse Resp BP Pulse Ox FiO2 11/21/23 16:00 146 H 15 120/81 95 11/21/23 15:50 154 H 28 H 94 L 11/21/23 15:40 154 H 25 H 96 11/21/23 15:30 152 H 18 94 L 11/21/23 15:20 154 H 25 H 96 11/21/23 15:10 151 H 18 133/117 96 11/21/23 15:00 151 H 10 L 121/91 97 11/21/23 14:50 147 H 28 H 11/21/23 14:40 23 11/21/23 14:30 146 H 13 11/21/23 14:20 147 H 27 H 11/21/23 14:10 13 129/89 11/21/23 14:00 147 H 23 11/21/23 13:50 144 H 14 11/21/23 13:40 146 H 23 11/21/23 13:30 144 H 29 H 11/21/23 13:20 146 H 144 H 13 11/21/23 13:10 144 H 19 122/103 11/21/23 13:00 99.1 F 144 H 20 122/103 94 L 11/21/23 12:00 142 H 16 114/100 98 11/21/23 11:00 142 H 16 107/84 98 11/21/23 10:00 142 H 16 115/89 99 11/21/23 09:32 147 H 23 11/21/23 09:00 137 H 20 112/64 98 11/21/23 08:00 134 H 20 159/115 97 11/21/23 06:30 147 H 15 132/90 95 11/21/23 06:20 149 H 20 132/90 96 11/21/23 06:10 152 H 13 132/90 93 L 11/21/23 06:00 151 H 10 L 114/96 94 L 11/21/23 05:50 152 H 10 L 95 11/21/23 05:49 97.6 F 151 H 33 H 114/96 94 L 11/21/23 05:00 154 H 152 H 22 147/97 96 11/21/23 02:23 135 H 20 104/75 100 11/21/23 00:00 142 H 22 108/78 96 11/20/23 21:14 126 H 20 124/79 100 11/20/23 20:08 126 H 10 L 139/109 99 11/20/23 19:51 131 H 14 133/94 99 11/20/23 19:46 163 H 12 107/86 100 11/20/23 19:43 85/75 11/20/23 19:35 97 F L 275 H 12 121/105 99 100 Intake and Output 11/21/23 11/21/23 11/21/23 06:59 14:59 22:59 Intake Total 260 130 Output Total 300 1070 75 Balance -300 -810 55 Intake: IV 260 130 Sodium Chloride 0.9% 1, 260 130 000 ml @ 130 mls/hr IV . Q7H42M [facility] Rx#:[id number] Output: Urine 300 1070 75 Uretheral (Benitez) 900 Other: Voiding Method Indwelling Catheter Indwelling Catheter General: Lying in bed and does not appear in acute distress. HENT: Supple neck. Has bruise over the left frontal. Neuro: Very Limited. The patient is severely drowsy and is mumbling. He is oriented to self only and needs a lot of direction to answer that. No facial weakness. He is very tremulous. Results - Laboratory Findings CBC and BMP: 11/21/23 06:07 11/21/23 06:07 Abnormal Lab Findings: Abnormal Labs 11/20/23 11/20/23 11/20/23 19:45 19:45 19:45 RBC Hgb MCV 110.5 H Lymphocytes # Macrocytosis Marked A APTT 19.2 L Potassium 5.8 H Chloride 109 H Carbon Dioxide 14 L Creatinine 1.28 H Glucose 158 H POC Glucose (mg/dL) Calcium Ammonia Total Protein 8.4 H Albumin 5.5 H 11/20/23 11/20/23 11/21/23 19:45 21:35 06:07 RBC 3.72 L Hgb 12.9 L MCV 107.5 H Lymphocytes # 0.9 L Macrocytosis Marked A APTT Potassium Chloride Carbon Dioxide Creatinine Glucose POC Glucose (mg/dL) 114 H Calcium Ammonia 78 H Total Protein Albumin 11/21/23 06:07 RBC Hgb MCV Lymphocytes # Macrocytosis APTT Potassium Chloride 115 H Carbon Dioxide Creatinine Glucose 115 H POC Glucose (mg/dL) Calcium 8.2 L Ammonia Total Protein Albumin Assessment and Plan Assessment: This is a 53-year-old gentleman presents emergency department for suspected seizure in the family felt he was having jerking movement tends to fall as a result of the seizure. Patient has previous history of alcohol withdrawal /delirium tremens. Patient has history of seizure and had multiple EEGs in our facility as well as a prolonged EEG which were negative for any seizures or discharges. He was last seen by our neurology housekeeping and laundry team leader on 09/17/2023 and was felt he has delirium due to hypoglycemia. Currently his alcohol level is less than 10 Encephalopathy with tremor possible alcohol withdrawal seizures/delirium tremens Patient is tachycardic and alcohol level is less than 10 Also has component of metabolic encephalopathy Elevated ammonia level History of seizure and patient had multiple EEGs as well as prolonged EEG in our facility which were negative for any seizure or discharges Microcytic anemia is felt likely due to alcoholism History of cardiomyopathy status post ablation Hypothyroidism History of remote right basal ganglia stroke History of psychosis [facility] Anxiety depression Alcohol use Plan: I ordered a routine EEG Patient is resumed on his home medication of Vimpat 200 mg twice daily, Lamictal 25 mg twice daily. I will go up on the Lamictal to 50 mg twice daily Seizure precaution and pad. Patient is on CIWA protocol. Over the SVT cardiology is consulted. Ordered 2D echo Will defer the rest of the medical management to primary and other specialists Plan discussed with the patient primary team and his nurse Thank you for the consultation Time with Patient: Greater than 30
[2023-11-21] MEDS: METOPROLOL SUCCINATE (ER) 25 MG TAB.ER.24H PO SCH (21:21)
[2023-11-21] MEDS: QUEtiapine 50 MG TAB PO SCH (21:34)
[2023-11-21] MEDS: MIRTAZAPINE 15 MG TAB PO SCH (21:34)
--- NOTE | 2023-11-21 21:41 | P.CRDCN ---
History of Present Illness Consult date: 11/21/23 History of present illness: The patient is a 53-year-old gentleman with a past medical history significant for history of excessive alcohol use and history of CVA as well as hypertension and dyslipidemia and history of loop recorder implantation and underlying mental delay as well as multiple comorbid conditions. We are requested to see the patient in the intensive care unit for further evaluation of cardiac arrhythmia mainly atrial fibrillation with rapid ventricular response. The patient is extremely poor historian and the history was taken from the chart as well as from a nurse taking care of the patient. Currently the patient was brought by ambulance for concern regarding seizure. Subsequently the patient was brought to the emergency department. He was admitted to the intensive care unit because there was a concerned about alcohol withdrawal. He was and he continues to be hemodynamically stable until earlier today when he started experiencing tac hycardia. No indication that the patient was experiencing any heart racing or fluttering or symptoms of chest pain or chest discomfort or shortness of breath. Further investigation was performed including multiple EKGs but unfortunately all of them are of poor quality and the EKG showed finding concerning for supraventricular tachycardia versus atrial fibrillation/flutter with rapid ventricular response. The patient is known to have cardiac arrhythmia from before. The hemoglobin is a stable. Electrolytes and kidney function are stable. Chest x-ray did not show any acute abnormalities. The CT scan of the brain also did not show any acute abnormalities. The examination is remarkable for regular rhythm with tachycardia and soft systolic murmur at the right upper sternal border with a clear breathing sounds bilaterally and no edema was noted Assessment Change in mental status History of excessive alcohol use Possible alcohol withdrawal Cardiac arrhythmia with differential diagnosis of atrial flutter versus supraventricular tachycardia History of cardiac arrhythmia Multiple comorbid conditions Underlying mental delay Plan Start the patient on Cardizem IV Start the patient on heparin IV Performed bedside EKG Obtain an echocardiogram with Doppler Further recommendation to follow Past Medical History Past Medical History: Chest Pain / Angina, CVA/TIA, Hyperlipidemia, Hypertension, Seizure Disorder, Supraventricular Tachycardia (SVT), Syncope, Thyroid Disorder Additional Past Medical History / Comment(s): Pt states he had a small stroke in the past but no deficits, SVT with ablation, atach, acute encephalop athies/altered mental status associated with alcohol consumption, ETOH, hypothyroid, diverticular disease, chronic low back pain/spasms, last seizure possibly . History of Any Multi-Drug Resistant Organisms: None Reported Past Surgical History: Cardiac Ablation, Heart Catheterization Additional Past Surgical History / Comment(s): Cardiac ablation for SVT, tilt table test, stress test 2017, heart cath 2017, colonoscopy.. Past Anesthesia/Blood Transfusion Reactions: No Reported Reaction Additional Past Anesthesia/Blood Transfusion Reaction / Comment(s): Pt has never had transfusion. Past Psychological History: Anxiety, Depression, Panic Disorder Smoking Status: Never smoker Past Alcohol Use History: Daily Past Drug Use History: None Reported - Past Family History Mother History Unknown: Yes Family Medical History: Musculoskeletal Disorder, Neurologic Disorder Additional Family Medical History / Comment(s): MS. Mother is living. Father History Unknown: Yes Additional Family Medical History / Comment(s): BREATHING PROBLEMS-never goes to the doctor. Father is living. Medications and Allergies Home Medications Medication Instructions Recorded Confirmed Type allopurinoL [Zyloprim] 100 mg PO DAILY #30 tab 06/21/18 11/21/23 Rx Metoprolol Succinate [Toprol XL] 25 mg PO BID 12/24/19 11/21/23 History Lacosamide [Vimpat] 200 mg PO BID 12/11/20 11/21/23 History lamoTRIgine [LaMICtal] 25 mg PO BID 30 Days #60 tab 08/26/21 11/21/23 Rx Levothyroxine Sodium [Synthroid] 75 mcg PO DAILY 09/12/23 11/21/23 History Mirtazapine 15 mg PO HS 09/12/23 11/21/23 History Primidone [Mysoline] 50 mg PO DAILY 09/12/23 11/21/23 History busPIRone HCl [Buspar] 10 mg PO BID 09/12/23 11/21/23 History Famotidine [Pepcid] 20 mg PO DAILY #30 tab 09/20/23 11/21/23 Rx QUEtiapine [SEROquel] 50 mg PO HS #30 tab 09/20/23 11/21/23 Rx Thiamine [Vitamin B-1] 100 mg PO DAILY #30 tab 09/20/23 11/21/23 Rx Allergies Allergy/AdvReac Type Severity Reaction Status Date / Time amoxicillin Allergy Rash/Hives Verified 11/21/23 10:40 Sulfa (Sulfonamide Allergy Rash/Hives Verified 11/21/23 10:40 Antibiotics) Physical Exam Vitals: Vital Signs Temp Pulse Pulse Resp BP Pulse Ox 11/21/23 20:00 97.8 F 124 H 40 H 117/96 95 11/21/23 19:00 152 H 22 102/72 97 11/21/23 18:00 154 H 43 H 116/90 97 11/21/23 17:00 160 H 22 110/82 97 11/21/23 16:00 98.7 F 146 H 156 H 15 120/81 95 11/21/23 15:50 154 H 28 H 94 L 11/21/23 15:40 154 H 25 H 96 11/21/23 15:30 152 H 18 94 L 11/21/23 15:20 154 H 25 H 96 11/21/23 15:10 151 H 18 133/117 96 11/21/23 15:00 151 H 10 L 121/91 97 11/21/23 14:50 147 H 28 H 11/21/23 14:40 23 11/21/23 14:30 146 H 13 11/21/23 14:20 147 H 27 H 11/21/23 14:10 13 129/89 11/21/23 14:00 147 H 23 11/21/23 13:50 144 H 14 11/21/23 13:40 146 H 23 11/21/23 13:30 144 H 29 H 11/21/23 13:20 146 H 144 H 13 11/21/23 13:10 144 H 19 122/103 11/21/23 13:00 99.1 F 144 H 20 122/103 94 L 11/21/23 12:00 142 H 16 114/100 98 11/21/23 11:00 142 H 16 107/84 98 11/21/23 10:00 142 H 16 115/89 99 11/21/23 09:32 147 H 23 11/21/23 09:00 137 H 20 112/64 98 11/21/23 08:00 134 H 20 159/115 97 11/21/23 06:30 147 H 15 132/90 95 11/21/23 06:20 149 H 20 132/90 96 11/21/23 06:10 152 H 13 132/90 93 L 11/21/23 06:00 151 H 10 L 114/96 94 L 11/21/23 05:50 152 H 10 L 95 11/21/23 05:49 97.6 F 151 H 33 H 114/96 94 L 11/21/23 05:00 154 H 152 H 22 147/97 96 11/21/23 02:23 135 H 20 104/75 100 11/21/23 00:00 142 H 22 108/78 96 Intake and Output 11/21/23 11/21/23 11/21/23 06:59 14:59 22:59 Intake Total 260 895.921 Output Total 300 1070 360 Balance -300 -810 535.921 Intake: IV 260 780 Sodium Chloride 0.9% 1, 260 780 000 ml @ 130 mls/hr IV . Q7H42M [facility] Rx#:[id number] Intake, IV Titration 115.921 Amount Diltiazem 125 mg In 73.583 Sodium Chloride 0.9% 100 ml @ Per Protocol IV .Q0M [facility] Rx#:[id number] Heparin Sod,Pork in 0.45% 42.338 NaCl 25,000 unit In 0.45 % NaCl 1 250ml.bag @ 12 UNITS/KG/HR 7.076 mls/hr IV .Q24H [facility] Rx#: [id number] Output: Urine 300 1070 360 Uretheral (Benitez) 900 Other: Voiding Method Indwelling Catheter Indwelling Catheter Indwelling Catheter Weight 58.967 kg Results 11/21/23 06:07 11/21/23 06:07 Coagulation 11/21/23 Range/Units 20:13 APTT 101.1 H* (22.0-30.0) sec CBC 11/21/23 Range/Units 06:07 WBC 6.5 (3.8-10.6) k/uL RBC 3.72 L (4.30-5.90) m/uL Hgb 12.9 L (13.0-17.5) gm/dL Hct 40.0 (39.0-53.0) % Plt Count 157 (150-450) k/uL Comprehensive Metabolic Panel 11/21/23 Range/Units 06:07 Sodium 143 (137-145) mmol/L Potassium 4.2 (3.5-5.1) mmol/L Chloride 115 H (98-107) mmol/L Carbon Dioxide 22 (22-30) mmol/L BUN 13 (9-20) mg/dL Creatinine 0.74 (0.66-1.25) mg/dL Glucose 115 H (74-99) mg/dL Calcium 8.2 L (8.4-10.2) mg/dL Current Medications Generic Name Dose Route Start Last Admin Trade Name Freq PRN Reason Stop Dose Admin Artificial Tears 1 drops 11/21/23 00:37 Artificial Tears-Hypromellose Drops 15 Ml Btl BOTH EYES Q4HR PRN Dry Eye(s) Docusate Sodium 100 mg 11/21/23 09:00 11/21/23 21:14 Docusate 100 Mg Cap PO 100 mg BID FITO Administration Famotidine 20 mg 11/21/23 09:00 11/21/23 21:14 Famotidine 20 Mg/2 Ml Vial IV 20 mg Q12HR FITO Administration Heparin Sodium (Porcine) 0 unit 11/21/23 15:19 Heparin Sodium 1,000 Un/Ml (10ml Vl) IV PER PROTOCOL PRN Low PTT Protocol Sodium Chloride 1,000 mls @ 130 mls/hr 11/21/23 13:45 11/21/23 15:47 Saline 0.9% IV 130 mls/hr .Q7H42M FITO Administration Heparin Sodium/Sodium Chloride 250 mls @ 7.076 mls/hr 11/21/23 15:30 11/21/23 21:30 25,000 unit/ Sodium Chloride IV 0 units/kg/hr .Q24H [facility] 0 mls/hr Titration Protocol 12 UNITS/KG/HR Diltiazem HCl 125 mg/ Sodium 125 mls @ 0 mls/hr 11/21/23 15:30 11/21/23 21:31 Chloride IV 10 ml/hr .Q0M [facility] 10 mls/hr Titration Protocol Per Protocol Lacosamide 200 mg 11/21/23 09:00 11/21/23 21:14 Lacosamide 50 Mg Tablet PO 200 mg BID FITO Administration Lamotrigine 50 mg 11/21/23 21:00 11/21/23 21:14 Lamotrigine 25 Mg Tab PO 50 mg BID FITO Administration Levothyroxine Sodium 75 mcg 11/22/23 06:30 Levothyroxine 75 Mcg Tab PO DAILY@0630 FITO Lorazepam 1 mg 11/21/23 12:52 Lorazepam 1 Mg/0.5 Ml Vial IV Q2HR PRN CIWA 8 or 9 Lorazepam 1 mg 11/21/23 12:52 11/21/23 21:25 Lorazepam 1 Mg/0.5 Ml Vial IV 1 mg Q1HR PRN Administration CIWA 10 to 15 Metoprolol Succinate 25 mg 11/21/23 21:00 11/21/23 21:21 Metoprolol Succinate (Er) 25 Mg Tab.Er.24h PO 25 mg BID FITO Administration Mirtazapine 15 mg 11/21/23 21:00 11/21/23 21:34 Mirtazapine 15 Mg Tab PO 15 mg HS FITO Administration Morphine Sulfate 4 mg 11/21/23 00:37 Morphine Sulfate 4 Mg/Ml Syringe IV Q3HR PRN Severe Pain (Scale 7 to 10) Naloxone HCl 0.2 mg 11/21/23 00:37 Naloxone 0.4 Mg/Ml 1 Ml Vial IV Q2M PRN Opioid Reversal Pantoprazole Sodium 40 mg 11/21/23 09:00 11/21/23 10:11 Pantoprazole 40 Mg/10 Ml Vial IVP 40 mg DAILY FITO Administration Primidone 50 mg 11/22/23 09:00 Primidone 50 Mg Tab PO DAILY FITO Quetiapine Fumarate 50 mg 11/21/23 21:00 11/21/23 21:34 Quetiapine 50 Mg Tab PO 50 mg HS FITO Administration Thiamine HCl 100 mg 11/21/23 09:00 11/21/23 10:11 Thiamine 100 Mg Tab PO 100 mg DAILY FITO Administration Intake and Output 11/21/23 11/21/23 11/21/23 06:59 14:59 22:59 Intake Total 260 895.921 Output Total 300 1070 360 Balance -300 -810 535.921 Intake: IV 260 780 Sodium Chloride 0.9% 1, 260 780 000 ml @ 130 mls/hr IV . Q7H42M [facility] Rx#:[id number] Intake, IV Titration 115.921 Amount Diltiazem 125 mg In 73.583 Sodium Chloride 0.9% 100 ml @ Per Protocol IV .Q0M [facility] Rx#:[id number] Heparin Sod,Pork in 0.45% 42.338 NaCl 25,000 unit In 0.45 % NaCl 1 250ml.bag @ 12 UNITS/KG/HR 7.076 mls/hr IV .Q24H [facility] Rx#: [id number] Output: Urine 300 1070 360 Uretheral (Benitez) 900 Other: Voiding Method Indwelling Catheter Indwelling Catheter Indwelling Catheter Weight 58.967 kg Patient Weight 11/22/23 06:59 Weight 58.967 kg 11/21/23 06:07 11/21/23 06:07
[2023-11-21] MEDS: HALOPERIDOL LACTATE 5 MG/ML 1 ML VIAL ONE (22:04)
--- NOTE | 2023-11-21 23:46 | EEG ---
ELECTROENCEPHALOGRAM REPORT CLINICAL HISTORY: This is a 53-year-old gentleman with history of seizure, alcohol use, who presents because of confusion, body jerk, and concern for seizure. The video EEG is obtained to evaluate for seizure epileptiform activity. RELEVANT MEDICATIONS: 1. Vimpat. 2. Lamictal. 3. Ativan. EEG TYPE: A routine 21-channel EEG with video using the 10/20 electrode placement system. DESCRIPTION: Wakefulness and drowsiness are obtained. The background consists of [id number] voltage of 6 to 6.5 hertz activity and at times background consists of delta activity that is nonrhythmic. During the study, the patient is pulling on the wires causing some artifact. There is no physiological stage 2 sleep architecture. There is no focal slowing. Interictal and ictal is none. ACTIVATION PROCEDURE: Photic stimulation and hyperventilation are not performed. CLINICAL INTERPRETATION: This is an abnormal routine EEG. The background slowing is suggestive of moderate encephalopathy. Otherwise, there is no focal slowing, epileptiform discharge, or seizure on the EEG. Clinical correlation is recommended. MMMARGARITA / SILVINAN: [id number] / [email or web address]
[2023-11-22 03:57] LABS: Basophils % (A) 0 %; Eosinophils # (A) 0.1 k/uL (0-0.7); Eosinophils % (A) 2 %; HCT 32.1 % (39.0-53.0); HGB 10.2 gm/dL (13.0-17.5); Lymphocytes # (A) 1.1 k/uL (1.0-4.8); Lymphocytes % (A) 28 %; MCH 33.9 pg (25.0-35.0); MCHC 31.8 g/dL (31.0-37.0); MCV 106.8 fL (80.0-100.0); Macrocytosis Moderate; Mean Platelet Volume 7.4; Monocytes # (A) 0.2 k/uL (0-1.0); Monocytes % (A) 5 %; Neutrophils # (A) 2.5 k/uL (1.3-7.7); Neutrophils % (A) 64 %; RBC 3.01 m/uL (4.30-5.90); RDW 14.5 % (11.5-15.5); WBC 3.8 k/uL (3.8-10.6)
[2023-11-22 04:39] LABS: ALT 12 U/L (4-49); AST 28 U/L (17-59); African American GFR (CKD) >90 (>60 ml/min/1.73 sqM); Albumin 2.8 g/dL (3.5-5.0); Alkaline Phosphatase 61 U/L (38-126); Anion Gap 2 mmol/L; Blood Urea Nitrogen 6 mg/dL (9-20); Calcium 7.5 mg/dL (8.4-10.2); Carbon Dioxide 22 mmol/L (22-30); Chloride 116 mmol/L (98-107); Glucose 74 mg/dL (74-99); Non-African American GFR(CKD) >90 (>60 ml/min/1.73 sqM); Potassium 3.2 mmol/L (3.5-5.1); Sodium 140 mmol/L (137-145); Total Bilirubin 0.8 mg/dL (0.2-1.3); Total Protein 4.9 g/dL (6.3-8.2)
[2023-11-22] MEDS ORDERED: Potassium Replacement Protocol 1 EACH MISC MISCELLANE PRN (04:46)
[2023-11-22 05:02] LABS: Platelet Count 86 k/uL (150-450)
[2023-11-22] MEDS: POTASSIUM BICARBONATE/CIT AC 20 MEQ TABLET.EFF NG-TUBE SCH (05:19)
[2023-11-22] MEDS: LEVOTHYROXINE 75 MCG TAB PO SCH (05:21)
[2023-11-22] MEDS: POTASSIUM CHLORIDE 10 MEQ in WATER FOR INJECTION 1 100ML.BAG IVPB SCH (05:31)
--- NOTE | 2023-11-22 07:07 | P.PN ---
Subjective Progress Note Date: 11/22/23 Principal diagnosis: A. TYRELL The patient is a 53-year-old gentleman with a past medical history significant for history of excessive alcohol use and history of CVA as well as hypertension and dyslipidemia and history of loop recorder implantation and underlying mental delay as well as multiple comorbid conditions. We are requested to see the patient in the intensive care unit for further evaluation of cardiac arrhythmia mainly atrial fibrillation with rapid ventricular response. The patient is extremely poor historian and the history was taken from the chart as well as fr om a nurse taking care of the patient. Currently the patient was brought by ambulance for concern regarding seizure. Subsequently the patient was brought to the emergency department. He was admitted to the intensive care unit because there was a concerned about alcohol withdrawal. He was and he continues to be hemodynamically stable until earlier today when he started experiencing tachycardia. No indication that the patient was experiencing any heart racing or fluttering or symptoms of chest pain or chest discomfort or shortness of breath. Further investigation was performed including multiple EKGs but unfortunately all of them are of poor quality and the EKG showed finding concerning for supraventricular tachycardia versus atrial fibrillation/flutter with rapid ventricular response. The patient is known to have cardiac arrhythmia from before. The hemoglobin is a stable. Electrolytes and kidney function are stable. Chest x-ray did not show any acute abnormalities. The CT scan of the brain also did not show any acute abnormalities. The examination is remarkable for regular rhythm with tachycardia and soft systolic murmur at the right upper sternal border with a clear breathing sounds bilaterally and no edema was noted November 22, 2023 The patient was seen and evaluated this morning. He continues to go through withdrawal. He converted to normal sinus mechanism. Currently he is on Toprol- XL. He is on heparin which I am going to stop and start him on oral anticoagula tion using Eliquis at 5 mg p.o. twice daily. The echo still pending. He is still slightly confused and currently is lethargic. The examination is remarkable for stable vital signs. Assessment Change in mental status likely secondary to alcohol withdrawal History of excessive alcohol use Possible alcohol withdrawal Cardiac arrhythmia with differential diagnosis of atrial flutter versus supraven tricular tachycardia History of cardiac arrhythmia Multiple comorbid conditions Underlying mental delay Plan Continue the current dose of Toprol-XL Start the patient on oral anticoagulation Follow-up on the echocardiogram Follow-up with the patient Objective - Vital Signs Vital signs: Vital Signs Temp 98.1 F 11/22/23 04:00 Pulse 66 11/22/23 06:00 Resp 20 11/22/23 06:00 BP 102/72 11/22/23 06:00 Pulse Ox 95 11/22/23 06:00 FiO2 100 11/20/23 19:35 Intake & Output 11/21/23 11/22/23 11/22/23 18:59 06:59 18:59 Intake Total 527.708 8262.671 Output Total 1320 960 Balance -650.731 0854.671 Weight 58.967 kg 55.8 kg Intake: IV 780 2470 Sodium Chloride 0.9% 1, 1560 000 ml @ 130 mls/hr IV . Q7H42M [facility] Rx#:[id number] Sodium Chloride 0.9% 1, 780 910 000 ml @ 130 mls/hr IV . Q7H42M [facility] Rx#:[id number] Intake, IV Titration 14.083 116.671 Amount Diltiazem 125 mg In 14.083 74.333 Sodium Chloride 0.9% 100 ml @ Per Protocol IV .Q0M [facility] Rx#:[id number] Heparin Sod,Pork in 0.45% 42.338 NaCl 25,000 unit In 0.45 % NaCl 1 250ml.bag @ 12 UNITS/KG/HR 7.076 mls/hr IV .Q24H [facility] Rx#: [id number] Output: Urine 1320 960 Uretheral (Benitez) 900 Other: Voiding Method Indwelling Catheter Indwelling Catheter - Labs CBC & Chem 7: 11/22/23 03:50 11/22/23 03:50 Labs: Abnormal Lab Results - Last 24 Hours (Table) 11/21/23 11/22/23 11/22/23 Range/Units 20:13 03:50 03:50 RBC 3.01 L (4.30-5.90) m/uL Hgb 10.2 L (13.0-17.5) gm/dL Hct 32.1 L (39.0-53.0) % MCV 106.8 H (80.0-100.0) fL Plt Count 86 L (150-450) k/uL APTT 101.1 H* (22.0-30.0) sec Potassium 3.2 L (3.5-5.1) mmol/L Chloride 116 H (98-107) mmol/L BUN 6 L (9-20) mg/dL Creatinine 0.63 L (0.66-1.25) mg/dL Calcium 7.5 L (8.4-10.2) mg/dL Total Protein 4.9 L (6.3-8.2) g/dL Albumin 2.8 L (3.5-5.0) g/dL 11/22/23 Range/Units 03:50 RBC (4.30-5.90) m/uL Hgb (13.0-17.5) gm/dL Hct (39.0-53.0) % MCV (80.0-100.0) fL Plt Count (150-450) k/uL APTT 49.8 H (22.0-30.0) sec Potassium (3.5-5.1) mmol/L Chloride (98-107) mmol/L BUN (9-20) mg/dL Creatinine (0.66-1.25) mg/dL Calcium (8.4-10.2) mg/dL Total Protein (6.3-8.2) g/dL Albumin (3.5-5.0) g/dL Microbiology - Last 24 Hours (Table) 11/20/23 21:15 Blood Culture - Preliminary Blood 11/20/23 21:45 Blood Culture - Preliminary Blood
[2023-11-22] MEDS: APIXABAN 5 MG TAB PO SCH (08:46)
[2023-11-22] MEDS: PRIMIDONE 50 MG TAB PO SCH (08:46)
--- NOTE | 2023-11-22 10:57 | P.PN ---
Subjective Progress Note Date: 11/22/23 Patient is a 53-year-old white male with past medical history significant for alcoholism, seizure disorder, CVA/TIA, hypertension, hyperlipidemia, SVT, hypothyroidism, among other things. Patient was brought in by EMS to the emergency department last night. He was witnessed to have a fall and suspected s eizure-like activity by his mother at home. He has an abrasion on his left forehead. He is also suspected of having alcohol withdrawal. He had a recent hospitalization back in August, for similar presentation. Brain CT done on arrival did not show any acute intracranial process. He is currently in the emergency department, room 1. He is altered. He is restless and wheeling in bed. He has generalized tremors. Diaphoretic. Tachycardic on bedside monitor. No further seizure activity noted by nurses. He does have alcoholism, unknown when last drink. Serum alcohol level was less than 10 on arrival. He is on the CIWA protocol. Most recent CIWA score was 21. He has received a total of 6 mg of Ativan so far. On his previous admission, he required Precedex infusion and admission to the intensive care unit at that time. CBC unremarkable. Initial BMP: Sodium 144, potassium 5.8, chloride 109, serum CO2 14, anion gap 21, BUN 16, creatinine 1.28, glucose 158. Mag 2.3. Saline infusing at 130 MLS per hour. LFTs not elevated. Total bilirubin 0.7. Ammonia level 78. Urinalysis not remarkable for UTI. Afebrile. Urine toxicology screen negative. Patient's suspected alcohol withdrawal will be treated in the intensive care unit. The patient is seen today November 22, 2023 in follow-up in the intensive care unit. He is currently sitting up in bed. Awake and alert in no acute distress. Maintaining O2 saturations in the 90s on room air. He has normal saline at 130 MLS per hour. His potassium is being replaced. He did go into atrial fibrillation with rapid ventricular response last night and was on a Cardizem drip and a heparin drip. He had been seen by cardiology today who discontinued the drips and initiated Eliquis. He is currently in sinus rhythm. He had been requiring Ativan hourly most of yesterday but in the evening he was down to about every 3 hours. He is cooperative currently. White count 3.8. Hemoglobin 10.2. Platelets 86,000. Sodium 140. Potassium 3.2. Bicarb 22. BUN 6. Creatinine 0.63. Objective - Vital Signs Vital signs: Vital Signs Temp 97.6 F 11/22/23 08:00 Pulse 80 11/22/23 10:00 Resp 16 11/22/23 10:00 BP 121/69 11/22/23 10:00 Pulse Ox 99 11/22/23 10:00 FiO2 100 11/20/23 19:35 Intake & Output 11/21/23 11/22/23 11/22/23 18:59 06:59 18:59 Intake Total 937.022 3112.671 560 Output Total 1320 960 100 Balance -105.237 3228.671 460 Weight 58.967 kg 55.8 kg Intake: IV 780 2470 260 Sodium Chloride 0.9% 1, 1560 260 000 ml @ 130 mls/hr IV . Q7H42M [facility] Rx#:[id number] Sodium Chloride 0.9% 1, 780 910 000 ml @ 130 mls/hr IV . Q7H42M STA Rx#:[id number] Intake, IV Titration 14.083 116.671 300 Amount Diltiazem 125 mg In 14.083 74.333 Sodium Chloride 0.9% 100 ml @ Per Protocol IV .Q0M [facility] Rx#:[id number] Heparin Sod,Pork in 0.45% 42.338 NaCl 25,000 unit In 0.45 % NaCl 1 250ml.bag @ 12 UNITS/KG/HR 7.076 mls/hr IV .Q24H [facility] Rx#: [id number] Potassium Chloride 10 meq 300 In Water For Injection 1 100ml.bag @ 100 mls/hr IVPB Q1HR [facility] Rx#: [id number] Output: Urine 1320 960 100 Uretheral (Benitez) 900 Other: Voiding Method Indwelling Catheter Indwelling Catheter Indwelling Catheter - Exam GENERAL EXAM: Awake, alert, cooperative 53-year-old male, on room air. No current seizure-like activity. HEAD: Normocephalic. Left forehead abrasion EYES: Normal reaction of pupils, equal size. NOSE: Clear with pink turbinates. THROAT: No erythema or exudates. Edentulous. NECK: No masses, no JVD. CHEST: No chest wall deformity. LUNGS: Equal air entry with no crackles, wheeze, rhonchi or dullness. No conversational dyspnea or accessory muscle use. CVS: S1 and S2 normal with no audible murmur, regular rhythm. No extra heart sounds. Tachycardic. ABDOMEN: No hepatosplenomegaly, active bowel sounds, no guarding or rigidity. SPINE: No scoliosis or deformity SKIN: No rashes CENTRAL NERVOUS SYSTEM: No focal deficits, tone is normal in all 4 extremities. EXTREMITIES: There is no peripheral edema, clubbing, or cyanosis. Peripheral pulses are intact. - Labs CBC & Chem 7: 11/22/23 03:50 11/22/23 03:50 Labs: Abnormal Lab Results - Last 24 Hours (Table) 11/21/23 11/22/23 11/22/23 Range/Units 20:13 03:50 03:50 RBC 3.01 L (4.30-5.90) m/uL Hgb 10.2 L (13.0-17.5) gm/dL Hct 32.1 L (39.0-53.0) % MCV 106.8 H (80.0-100.0) fL Plt Count 86 L (150-450) k/uL APTT 101.1 H* (22.0-30.0) sec Potassium 3.2 L (3.5-5.1) mmol/L Chloride 116 H (98-107) mmol/L BUN 6 L (9-20) mg/dL Creatinine 0.63 L (0.66-1.25) mg/dL Calcium 7.5 L (8.4-10.2) mg/dL Total Protein 4.9 L (6.3-8.2) g/dL Albumin 2.8 L (3.5-5.0) g/dL 11/22/23 Range/Units 03:50 RBC (4.30-5.90) m/uL Hgb (13.0-17.5) gm/dL Hct (39.0-53.0) % MCV (80.0-100.0) fL Plt Count (150-450) k/uL APTT 49.8 H (22.0-30.0) sec Potassium (3.5-5.1) mmol/L Chloride (98-107) mmol/L BUN (9-20) mg/dL Creatinine (0.66-1.25) mg/dL Calcium (8.4-10.2) mg/dL Total Protein (6.3-8.2) g/dL Albumin (3.5-5.0) g/dL Microbiology - Last 24 Hours (Table) 11/20/23 21:15 Blood Culture - Preliminary Blood 11/20/23 21:45 Blood Culture - Preliminary Blood Assessment and Plan Assessment: Suspected acute alcohol withdrawal delirium tremens, unsure last known drink and serum EtOH level less than 10 on arrival, patient does have history of alcoholism and has had a recent hospitalization with similar presentation August, which required admission to the intensive care unit Suspected seizure, with history of seizure disorder Fall with abrasion to left forehead Atrial fibrillation with rapid ventricular response, converted with Cardizem drip, on Eliquis Acute hypoxemic respiratory failure, recovered and on room air, likely secondary to DTs, chest x-ray does not show any focal infiltrates or evidence of pneumonia. No reported aspiration events Acute kidney injury, likely secondary to severe dehydration and ATN Anion gap metabolic acidosis, recovered Hyperammonemia, recovered History of alcoholism History of CVA/TIA History of hypertension History of hyperlipidemia History of SVT with previous ablation History of syncope History of hypothyroidism History of anxiety and depression Plan: The patient was seen and evaluated Labs and medications reviewed Stable and on room air Episode of A-fib with RVR Currently in sinus rhythm Eliquis initiated Remains on the CIWA protocol Remains in seizure precautions We will continue to follow I have personally seen and examined the patient, performed the documentation and the assessment and plan as written. Number of minutes spent on the visit: 10.
--- NOTE | 2023-11-22 12:27 | CA ---
Transthoracic Echo Report Name: Marco Antonio South Age: 53 Gender: M : 1970 Exam Date: 11/22/2023 07:46 Exam Location: [facility] Ht (in): 65 Wt (lb): 130 Ordering Physician: Josué Simpson MD ([id number]) Attending/Referring Phys: Mobile Disc Jockey Shira Donato RDCS Procedure CPT: Indications: a. fib Cardiac Hx: Technical Quality: Good Contrast 1: Total Dose (mL): Contrast 2: Total Dose (mL): MEASUREMENTS (Male / Female) Normal Values 2D ECHO LV Diastolic Diameter PLAX 5.3 cm 4.2 - 5.9 / 3.9 - 5.3 cm LV Systolic Diameter PLAX 3.6 cm IVS Diastolic Thickness 0.5 cm 0.6 - 1.0 / 0.6 - 0.9 cm LVPW Diastolic Thickness 0.8 cm 0.6 - 1.0 / 0.6 - 0.9 cm LV Relative Wall Thickness 0.2 RV Internal Dim ED PLAX 3.0 cm LVOT Diameter 2.2 cm LV Diastolic Volume MOD BP 111.3 cm??? 67 - 155 / 56 - 104 cm??? LV Systolic Volume MOD BP 49.4 cm??? 22 - 58 / 19 - 49 cm??? LV Ejection Fraction MOD BP 55.7 % >= 55 % LV Cardiac Index MOD BP 2748.3 cm???/min???m??? LV Diastolic Volume MOD 4C 106.7 cm??? LV Systolic Volume MOD 4C 46.6 cm??? LV Ejection Fraction MOD 4C 56.3 % LV Cardiac Index MOD 4C 2666.1 cm???/min???m??? LV Diastolic Length 4C 8.6 cm LV Systolic Length 4C 7.5 cm LV Diastolic Volume MOD 2C 114.3 cm??? LV Systolic Volume MOD 2C 48.5 cm??? LV Ejection Fraction MOD 2C 57.5 % LV Cardiac Index MOD 2C 2918.2 cm???/min???m??? LV Diastolic Length 2C 8.5 cm LV Systolic Length 2C 7.0 cm LA Volume 73.2 cm??? 18 - 58 / 22 - 52 cm??? LA Volume Index 44.5 cm???/m??? 16 - 28 cm???/m??? Ascending Aorta Diameter 4.2 cm DOPPLER AV Peak Velocity 126.9 cm/s AV Peak Gradient 6.4 mmHg AV Mean Velocity 79.9 cm/s AV Mean Gradient 2.9 mmHg AV Velocity Time Integral 24.9 cm LVOT Peak Velocity 78.4 cm/s LVOT Peak Gradient 2.5 mmHg LVOT Velocity Time Integral 15.2 cm LVOT Stroke Volume 59.0 cm??? LVOT Stroke Volume Index 35.8 ml/m??? LVOT Cardiac Index 2615.3 cm???/min???m??? AV Area Cont Eq vti 2.4 cm??? AV Area Cont Eq pk 2.4 cm??? MV Area PHT 4.9 cm??? Mitral E Point Velocity 76.5 cm/s Mitral A Point Velocity 41.1 cm/s Mitral E to A Ratio 1.9 MV Deceleration Time 153.5 ms PV Peak Velocity 66.8 cm/s PV Peak Gradient 1.8 mmHg FINDINGS Left Ventricle Left ventricular ejection fraction is estimated at 55-60 %. Left ventricular cavity size normal. Left ventricular wall thickness normal. Mid to distal inferior wall is hypokinetic Right Ventricle Normal right ventricular size and function. Unable to estimate the right ventricular systolic pressure. Right Atrium Moderate right atrial dilatation. Left Atrium Moderately increased left atrial volume. Mildly increased left atrial area. Patent foramen ovale. Mitral Valve Structurally normal mitral valve. No evidence for mitral valve prolapse. No mitral stenosis. Trace mitral regurgitation. Aortic Valve Trileaflet aortic valve. No aortic stenosis. Mild aortic regurgitation. Tricuspid Valve Structurally normal tricuspid valve. No tricuspid stenosis. Trace tricuspid regurgitation. Pulmonic Valve Structurally normal pulmonic valve. No pulmonic stenosis. Trace pulmonic regurgitation. Pericardium No pericardial effusion. Aorta Mildly dilated aortic annulus. Mildly dilated proximal ascending aorta (tube). CONCLUSIONS Preserved LV function with an ejection fraction of 50-55% Dilated left atrium Mild aortic regurgitation Evidence of prior inferior wall myocardial infarction Previewed by: Dr. Neftali Norton MD (Electronically Signed) Final Date: 22 November 2023 12:26
--- NOTE | 2023-11-22 13:12 | P.PN ---
Subjective Progress Note Date: 11/22/23 I am following-up with patient and per the nurse, he is more calm and seems less restless today. He continues to be receiving Ativan. Upon seeing him he was very drowsy. Objective - Vital Signs Vital signs: Vital Signs Temp 97.4 F L 11/22/23 12:00 Pulse 74 11/22/23 12:00 Resp 20 11/22/23 12:00 BP 107/76 11/22/23 12:00 Pulse Ox 97 11/22/23 12:00 FiO2 100 11/20/23 19:35 Intake & Output 11/21/23 11/22/23 11/22/23 18:59 06:59 18:59 Intake Total 810.912 2882.671 560 Output Total 1320 960 100 Balance -850.819 3588.671 460 Weight 58.967 kg 55.8 kg 55.8 kg Intake: IV 780 2470 260 Sodium Chloride 0.9% 1, 1560 260 000 ml @ 130 mls/hr IV . Q7H42M [facility] Rx#:[id number] Sodium Chloride 0.9% 1, 780 910 000 ml @ 130 mls/hr IV . Q7H42M [facility] Rx#:[id number] Intake, IV Titration 14.083 116.671 300 Amount Diltiazem 125 mg In 14.083 74.333 Sodium Chloride 0.9% 100 ml @ Per Protocol IV .Q0M [facility] Rx#:[id number] Heparin Sod,Pork in 0.45% 42.338 NaCl 25,000 unit In 0.45 % NaCl 1 250ml.bag @ 12 UNITS/KG/HR 7.076 mls/hr IV .Q24H [facility] Rx#: [id number] Potassium Chloride 10 meq 300 In Water For Injection 1 100ml.bag @ 100 mls/hr IVPB Q1HR [facility] Rx#: [id number] Output: Urine 1320 960 100 Uretheral (Benitez) 900 Other: Voiding Method Indwelling Catheter Indwelling Catheter Indwelling Catheter - Exam General: Lying in bed and does not appear in acute distress. HENT: Bruise over the left frontal. Has supple neck. Neuro: Very limited. Is very drowsy and is briefly awakeable to voice. He is oriented to self. Stated the year is 2027 then went back to sleep. No facial weakness. No dysarthria from limited language. Is much less restless today. Some of the workup during this hospital visit consisted of: Has been severely tachycardic on presentation initially in the 275 then in the 150s to 160s MCV is 110 and repeat is 107 Calcium is 5.8 Creatinine is 1.28 and repeat is normal Initial serum glucose is 158 Calcium is normal Magnesium is 2.3 AST ALT is within normal limits Ammonia is 78 and repeat <9 Urine drug screen is not detected and the urine alcohol is less than 10. CT of the head is reported as no CT evidence of acute intracranial abnormality. Atrophy and chronic microvascular ischemic white matter changes. Reviewed the CT and I agree with the report. EKG is reported as atrial flutter/tachycardia with RVR. Routine EEG: Is abnormal. The background slowing is suggestive of moderate encephalopathy. There is no focal slowing, epileptiform discharges or seizure on the EEG. 2D echo: Presevered LV function with EF 50-55%. Dilated left atrium. Evidence of prior inferior wall NV. - Labs CBC & Chem 7: 11/22/23 03:50 11/22/23 03:50 Labs: Abnormal Lab Results - Last 24 Hours (Table) 11/21/23 11/22/23 11/22/23 Range/Units 20:13 03:50 03:50 RBC 3.01 L (4.30-5.90) m/uL Hgb 10.2 L (13.0-17.5) gm/dL Hct 32.1 L (39.0-53.0) % MCV 106.8 H (80.0-100.0) fL Plt Count 86 L (150-450) k/uL APTT 101.1 H* (22.0-30.0) sec Potassium 3.2 L (3.5-5.1) mmol/L Chloride 116 H (98-107) mmol/L BUN 6 L (9-20) mg/dL Creatinine 0.63 L (0.66-1.25) mg/dL Calcium 7.5 L (8.4-10.2) mg/dL Total Protein 4.9 L (6.3-8.2) g/dL Albumin 2.8 L (3.5-5.0) g/dL 11/22/23 Range/Units 03:50 RBC (4.30-5.90) m/uL Hgb (13.0-17.5) gm/dL Hct (39.0-53.0) % MCV (80.0-100.0) fL Plt Count (150-450) k/uL APTT 49.8 H (22.0-30.0) sec Potassium (3.5-5.1) mmol/L Chloride (98-107) mmol/L BUN (9-20) mg/dL Creatinine (0.66-1.25) mg/dL Calcium (8.4-10.2) mg/dL Total Protein (6.3-8.2) g/dL Albumin (3.5-5.0) g/dL Microbiology - Last 24 Hours (Table) 11/20/23 21:15 Blood Culture - Preliminary Blood 11/20/23 21:45 Blood Culture - Preliminary Blood Assessment and Plan Assessment: This is a 53-year-old gentleman presents emergency department for suspected seizure in the family felt he was having jerking movement tends to fall as a result of the seizure. Patient has previous history of alcohol withdrawal/delirium tremens. Patient has history of seizure and had multiple EEGs in our facility as well as a prolonged EEG which were negative for any seizures or discharges. He was last seen by our neurology steam gigger on 09/17/2023 and was felt he has delirium due to hypoglycemia. Currently his alcohol level is less than 10 Encephalopathy with tremor possible alcohol withdrawal seizures/delirium tremens. Unknown if patient is drinking or not and on multiple times his alcohol level <10 and had multiple EEG and negative for seizures or discharges. Patient is tachycardic and alcohol level is less than 10. I cannot exclusively rule out seizures not being picked on EEG.---Today has less tremor. Also has component of metabolic encephalopathy Elevated ammonia level History of seizure and patient had multiple EEGs as well as prolonged EEG in our facility which were negative for any seizure or discharges Microcytic anemia is felt likely due to alcoholism History of cardiomyopathy status post ablation Hypothyroidism History of remote right basal ganglia stroke History of psychosis requiring admission to the mental health Anxiety depression Alcohol use Plan: Patient is resumed on his home medication of Vimpat 200 mg twice daily. I went on his home Lamictal 25 mg twice daily to 50mg bid. Seizure precaution and pad. I recommend outpatient epilepsy monitoring unit (EMU) for evaluation if truly having any seizure and discharges. Recommend holding all his antiepileptic drugs when getting EMU. Patient is on CIWA protocol. Over the SVT cardiology is consulted Will defer the rest of the medical management to primary and other specialists Plan discussed with the patient's ICU nurse. Time with Patient: Less than 30
--- NOTE | 2023-11-22 17:47 | P.PN ---
Subjective Progress Note Date: 11/22/23 This is a 53-year-old patient well-known to my services presented to the ER with concerns of Alcohol withdrawal's and questionable seizure. Patient has a past medical history of EtOH abuse along with seizures. Patient noted to have a laceration above left eye. Additional medical history includes CVA, h yperlipidemia, hypertension, SVT, syncope and cardiac ablation.CT of head completed showing no evidence of acute intracranial abnormality atrophy and chronic microvascular ischemia white matter changes.Chest x-ray completed showing no acute cardiopulmonary findings.EKG completed showing sinus tachyc ardia past with atrial flutter heart rate 147.UA negative. Drug screen negative. Serum alcohol less than 10 at this time patient will be admitted. Patient started on alcohol child protocol. Continue seizure precautions. Neurology, cardiology and critical care services have been consulted. At this time patient is sitting in bed sitter at bedside. Patient having some tremors On 11/22/2023 patient was seen and examined in the ICU, he is alert and responsive in no apparent distress, he denies any complaints at this time there is no fever or chills no headache or dizziness no chest pain no shortness of breath no cough no nausea or vomiting no abdominal pain no diarrhea and no urinary symptoms. Echocardiogram revealed preserved LV function with an ejection fraction of 50 to 55%, with evidence of prior inferior wall myocardial infarction. Patient was seen by neurology and EEG was performed, he is improving gradually. Objective - Vital Signs Vital signs: Vital Signs Temp 98.1 F 11/22/23 04:00 Pulse 66 11/22/23 06:00 Resp 20 11/22/23 06:00 BP 102/72 11/22/23 06:00 Pulse Ox 95 11/22/23 06:00 FiO2 100 11/20/23 19:35 Intake & Output 11/21/23 11/22/23 11/22/23 18:59 06:59 18:59 Intake Total 149.684 4218.671 Output Total 1320 960 Balance -649.698 9026.671 Weight 58.967 kg 55.8 kg Intake: IV 780 2470 Sodium Chloride 0.9% 1, 1560 000 ml @ 130 mls/hr IV . Q7H42M COUNTS INCLUDE 234 BEDS AT THE [facility] Rx#:[id number] Sodium Chloride 0.9% 1, 780 910 000 ml @ 130 mls/hr IV . Q7H42M [facility] Rx#:[id number] Intake, IV Titration 14.083 116.671 Amount Diltiazem 125 mg In 14.083 74.333 Sodium Chloride 0.9% 100 ml @ Per Protocol IV .Q0M COUNTS INCLUDE 234 BEDS AT THE [facility] Rx#:[id number] Heparin Sod,Pork in 0.45% 42.338 NaCl 25,000 unit In 0.45 % NaCl 1 250ml.bag @ 12 UNITS/KG/HR 7.076 mls/hr IV .Q24H COUNTS INCLUDE 234 BEDS AT THE [facility] Rx#: [id number] Output: Urine 1320 960 Uretheral (Benitez) 900 Other: Voiding Method Indwelling Catheter Indwelling Catheter - Labs CBC & Chem 7: 11/22/23 03:50 11/22/23 13:26 Labs: Abnormal Lab Results - Last 24 Hours (Table) 11/21/23 11/22/23 11/22/23 Range/Units 20:13 03:50 03:50 RBC 3.01 L (4.30-5.90) m/uL Hgb 10.2 L (13.0-17.5) gm/dL Hct 32.1 L (39.0-53.0) % MCV 106.8 H (80.0-100.0) fL Plt Count 86 L (150-450) k/uL APTT 101.1 H* (22.0-30.0) sec Potassium 3.2 L (3.5-5.1) mmol/L Chloride 116 H (98-107) mmol/L BUN 6 L (9-20) mg/dL Creatinine 0.63 L (0.66-1.25) mg/dL Calcium 7.5 L (8.4-10.2) mg/dL Total Protein 4.9 L (6.3-8.2) g/dL Albumin 2.8 L (3.5-5.0) g/dL 11/22/23 Range/Units 03:50 RBC (4.30-5.90) m/uL Hgb (13.0-17.5) gm/dL Hct (39.0-53.0) % MCV (80.0-100.0) fL Plt Count (150-450) k/uL APTT 49.8 H (22.0-30.0) sec Potassium (3.5-5.1) mmol/L Chloride (98-107) mmol/L BUN (9-20) mg/dL Creatinine (0.66-1.25) mg/dL Calcium (8.4-10.2) mg/dL Total Protein (6.3-8.2) g/dL Albumin (3.5-5.0) g/dL Microbiology - Last 24 Hours (Table) 11/20/23 21:15 Blood Culture - Preliminary Blood 11/20/23 21:45 Blood Culture - Preliminary Blood Assessment and Plan Assessment: 1. Alcohol withdrawals. Patient maintained on alcohol withdrawal protocol 2. Possible seizure 3. Fall with abrasion to left forehead 4. SVT. Cardiology services have been consulted 5. History of acute kidney injury 6. History of alcohol abuse 7. History of CVA 8. History of essential hypertension 9. History of hyperlipidemia 10. History of SVT with previous ablation 11. History of syncope 12. History of hypothyroidism 13. History of anxiety and depression DVT prophylaxis heparin. GI prophylaxis Protonix Patient to be admitted to the intensive care unit Continue seizure precautions Continue [facility] Neurology, cardiology and critical care service is consulted Repeat labs ordered
[2023-11-23] MEDS: HALOPERIDOL LACTATE 5 MG/ML 1 ML VIAL IM STA (00:23)
--- NOTE | 2023-11-23 12:24 | P.PN ---
Subjective Progress Note Date: 11/23/23 I am following-up with patient and he continues to be more calm compared to initial presentation. He continues to be drowsy but more responsive per sitter. Patient states he is following-up with Dr. Mcadams for his neurological care. He states his last alcohol drink was about a month ago. He states is not drinking a lot of alcohol and drinking 1-2 small cans and it is sporadical (not daily). Then later he stated he can drink up to 4-5 cans in a day. Objective - Vital Signs Vital signs: Vital Signs Temp 97.9 F 11/23/23 11:45 Pulse 76 11/23/23 11:45 Resp 16 11/23/23 11:45 BP 146/92 11/23/23 11:45 Pulse Ox 98 11/23/23 11:45 FiO2 100 11/20/23 19:35 Intake & Output 11/22/23 11/23/23 11/23/23 18:59 06:59 18:59 Intake Total 1570 30 Output Total 360 200 Balance 1210 -200 30 Weight 55.8 kg Intake: IV 1170 Sodium Chloride 0.9% 1, 1170 000 ml @ 130 mls/hr IV . Q7H42M [facility] Rx#:[id number] Intake, IV Titration 400 Amount Potassium Chloride 10 meq 400 In Water For Injection 1 100ml.bag @ 100 mls/hr IVPB Q1HR [facility] Rx#: [id number] Oral 30 Output: Urine 360 200 Other: Voiding Method Indwelling Catheter Indwelling Catheter Indwelling Catheter - Exam General: Lying in bed and does not appear in acute distress. HENT: Bruise over the left frontal. Has supple neck. Neuro: Very limited. Is moderately drowsy and is awakeable to voice. He is oriented to self and time. Is following simple commands. No facial weakness. No dysarthria. Lifting all extremities above gravity Some of the workup during this hospital visit consisted of: Has been severely tachycardic on presentation initially in the 275 then in the 150s to 160s MCV is 110 and repeat is 107 Calcium is 5.8 Creatinine is 1.28 and repeat is normal Initial serum glucose is 158 Calcium is normal Magnesium is 2.3 AST ALT is within normal limits Ammonia is 78 and repeat <9 Urine drug screen is not detected and the urine alcohol is less than 10. CT of the head is reported as no CT evidence of acute intracranial abnormality. Atrophy and chronic microvascular ischemic white matter changes. Reviewed the CT and I agree with the report. EKG is reported as atrial flutter/tachycardia with RVR. Routine EEG: Is abnormal. The background slowing is suggestive of moderate encephalopathy. There is no focal slowing, epileptiform discharges or seizure on the EEG. 2D echo: Presevered LV function with EF 50-55%. Dilated left atrium. Evidence of prior inferior wall ID. - Labs CBC & Chem 7: 11/22/23 03:50 11/22/23 13:26 Labs: Microbiology - Last 24 Hours (Table) 11/20/23 21:15 Blood Culture - Preliminary Blood 11/20/23 21:45 Blood Culture - Preliminary Blood Assessment and Plan Assessment: This is a 53-year-old gentleman presents emergency department for suspected seizure in the family felt he was having jerking movement tends to fall as a result of the seizure. Patient has previous history of alcohol withdrawal/delirium tremens. Patient has history of seizure and had multiple EEGs in our facility as well as a prolonged EEG which were negative for any seizures or discharges. He was last seen by our neurology production team member on 09/17/2023 and was felt he has delirium due to hypoglycemia. Currently his alcohol level is less than 10 Encephalopathy with tremor possible alcohol withdrawal seizures/delirium tremens. Unknown if patient is drinking or not and on multiple times his alcohol level <10 and had multiple EEG and negative for seizures or discharges. Patient is tachycardic on presentation. I cannot exclusively rule out seizures not being picked upon EEG.---mentation is improving. Patient states his last drink was a month ago but is not being upfront on quantity. Also has component of metabolic encephalopathy Elevated ammonia level History of seizure and patient had multiple EEGs as well as prolonged EEG in our facility which were negative for any seizure or discharges Microcytic anemia is felt likely due to alcoholism History of cardiomyopathy status post ablation Hypothyroidism History of remote right basal ganglia stroke History of psychosis requiring admission to the mental health Anxiety depression Alcohol use Plan: Patient is resumed on his home medication of Vimpat 200 mg twice daily. I went on his home Lamictal 25 mg twice daily to 50mg bid. Seizure precaution and pad. I recommend outpatient epilepsy monitoring unit (EMU) for evaluation if truly having any seizure and discharges. Recommend holding all his antiepileptic drugs when getting EMU. Patient is on CIWA protocol. Over the SVT cardiology is consulted Continue thiamine. Per ID DMV because of seizure, avoid driving for 6 months until seizure fee, avoid heights, avoid swimming unassisted or using heavy machinery. Will defer the rest of the medical management to primary and other specialists Upon discharge, recommend the patient to follow-up with his neurologist (Dr. Mcadams) as outpatient withing 1-2 weeks Plan discussed with the patient. Dr. Chakraborty will resume neurology service tomorrow A.M. Time with Patient: Less than 30
--- NOTE | 2023-11-23 13:05 | P.PN ---
Subjective Progress Note Date: 11/23/23 This is a 53-year-old patient well-known to my services presented to the ER with concerns of Alcohol withdrawal's and questionable seizure. Patient has a past medical history of EtOH abuse along with seizures. Patient noted to have a laceration above left eye. Additional medical history includes CVA, h yperlipidemia, hypertension, SVT, syncope and cardiac ablation.CT of head completed showing no evidence of acute intracranial abnormality atrophy and chronic microvascular ischemia white matter changes.Chest x-ray completed showing no acute cardiopulmonary findings.EKG completed showing sinus tachyc ardia past with atrial flutter heart rate 147.UA negative. Drug screen negative. Serum alcohol less than 10 at this time patient will be admitted. Patient started on alcohol child protocol. Continue seizure precautions. Neurology, cardiology and critical care services have been consulted. At this time patient is sitting in bed sitter at bedside. Patient having some tremors On 11/22/2023 patient was seen and examined in the ICU, he is alert and responsive in no apparent distress, he denies any complaints at this time there is no fever or chills no headache or dizziness no chest pain no shortness of breath no cough no nausea or vomiting no abdominal pain no diarrhea and no urinary symptoms. Echocardiogram revealed preserved LV function with an ejection fraction of 50 to 55%, with evidence of prior inferior wall myocardial infarction. Patient was seen by neurology and EEG was performed, he is improving gradually. On 11/23/2023 patient was seen and examined on the medical floor he is alert and oriented x 3 in no apparent distress there is no fever or chills no headache or dizziness no chest pain no shortness of breath no cough no nausea or vomiting no abdominal pain no diarrhea no urinary symptoms, he is still having episodes of confusion and agitation, he has 24-hour sitter, he is receiving IV Ativan as needed, and received a dose of Haldol last night, neurology are following. Objective - Vital Signs Vital signs: Vital Signs Temp 97.9 F 11/23/23 09:24 Pulse 75 11/23/23 09:24 Resp 16 11/23/23 09:24 BP 143/87 11/23/23 09:24 Pulse Ox 96 11/23/23 09:24 FiO2 100 11/20/23 19:35 Intake & Output 11/22/23 11/23/23 11/23/23 18:59 06:59 18:59 Intake Total 1570 30 Output Total 360 200 Balance 1210 -200 30 Weight 55.8 kg Intake: IV 1170 Sodium Chloride 0.9% 1, 1170 000 ml @ 130 mls/hr IV . Q7H42M [facility] Rx#:[id number] Intake, IV Titration 400 Amount Potassium Chloride 10 meq 400 In Water For Injection 1 100ml.bag @ 100 mls/hr IVPB Q1HR [facility] Rx#: [id number] Oral 30 Output: Urine 360 200 Other: Voiding Method Indwelling Catheter Indwelling Catheter - Exam In general patient is alert and oriented x 3 in no distress HEENT head normocephalic and atraumatic Neck is supple no JVD no goiter no lymphadenopathy no carotid bruit Chest examination is clear to auscultation no crackles no wheezing Cardiac exam reveals regular heart sounds S1 and S2 no gallops no murmurs Abdomen is soft nontender no organomegaly with normal bowel sounds Extremity exam reveals no edema no cyanosis or clubbing Neurological examination reveals no gross focal deficits - Labs CBC & Chem 7: 11/22/23 03:50 11/22/23 13:26 Labs: Microbiology - Last 24 Hours (Table) 11/20/23 21:15 Blood Culture - Preliminary Blood 11/20/23 21:45 Blood Culture - Preliminary Blood Assessment and Plan Assessment: 1. Alcohol withdrawals. Patient maintained on alcohol withdrawal protocol 2. Possible seizure 3. Fall with abrasion to left forehead 4. SVT. Cardiology services have been consulted 5. History of acute kidney injury 6. History of alcohol abuse 7. History of CVA 8. History of essential hypertension 9. History of hyperlipidemia 10. History of SVT with previous ablation 11. History of syncope 12. History of hypothyroidism 13. History of anxiety and depression DVT prophylaxis heparin. GI prophylaxis Protonix Patient to be admitted to the intensive care unit Continue seizure precautions Continue [facility] Neurology, cardiology and critical care service is consulted Repeat labs ordered
--- NOTE | 2023-11-23 13:33 | P.PN ---
Subjective Progress Note Date: 11/23/23 Patient is a 53-year-old white male with past medical history significant for alcoholism, seizure disorder, CVA/TIA, hypertension, hyperlipidemia, SVT, hypothyroidism, among other things. Patient was brought in by EMS to the emergency department last night. He was witnessed to have a fall and suspected s eizure-like activity by his mother at home. He has an abrasion on his left forehead. He is also suspected of having alcohol withdrawal. He had a recent hospitalization back in August, for similar presentation. Brain CT done on arrival did not show any acute intracranial process. He is currently in the emergency department, room 1. He is altered. He is restless and wheeling in bed. He has generalized tremors. Diaphoretic. Tachycardic on bedside monitor. No further seizure activity noted by nurses. He does have alcoholism, unknown when last drink. Serum alcohol level was less than 10 on arrival. He is on the CIWA protocol. Most recent CIWA score was 21. He has received a total of 6 mg of Ativan so far. On his previous admission, he required Precedex infusion and admission to the intensive care unit at that time. CBC unremarkable. Initial BMP: Sodium 144, potassium 5.8, chloride 109, serum CO2 14, anion gap 21, BUN 16, creatinine 1.28, glucose 158. Mag 2.3. Saline infusing at 130 MLS per hour. LFTs not elevated. Total bilirubin 0.7. Ammonia level 78. Urinalysis not remarkable for UTI. Afebrile. Urine toxicology screen negative. Patient's suspected alcohol withdrawal will be treated in the intensive care unit. The patient is seen today November 22, 2023 in follow-up in the intensive care unit. He is currently sitting up in bed. Awake and alert in no acute distress. Maintaining O2 saturations in the 90s on room air. He has normal saline at 130 MLS per hour. His potassium is being replaced. He did go into atrial fibrillation with rapid ventricular response last night and was on a Cardizem drip and a heparin drip. He had been seen by cardiology today who discontinued the drips and initiated Eliquis. He is currently in sinus rhythm. He had been requiring Ativan hourly most of yesterday but in the evening he was down to about every 3 hours. He is cooperative currently. White count 3.8. Hemoglobin 10.2. Platelets 86,000. Sodium 140. Potassium 3.2. Bicarb 22. BUN 6. Creatinine 0.63. The patient is seen today November 23, 2023 in follow-up on the selective care unit. He is awake and alert in no acute distress. He is maintaining O2 saturations in the 90s on room air. He has normal staying at 130 MLS per hour. He has a director of safety at the bedside. He did require a dose of Haldol at approximately midnight. He remains on the CIWA protocol. No seizures noted. Remains on seizure precautions. Remains on Vimpat. Echocardiogram revealed preserved left ventricular systolic function. He is currently in a sinus rhythm. He is ant icoagulated with Eliquis. Objective - Vital Signs Vital signs: Vital Signs Temp 97.9 F 11/23/23 11:45 Pulse 76 11/23/23 11:45 Resp 16 11/23/23 11:45 BP 146/92 11/23/23 11:45 Pulse Ox 98 11/23/23 11:45 FiO2 100 11/20/23 19:35 Intake & Output 11/22/23 11/23/23 11/23/23 18:59 06:59 18:59 Intake Total 1570 430 Output Total 360 200 Balance 1210 -200 430 Weight 55.8 kg Intake: IV 1170 Sodium Chloride 0.9% 1, 1170 000 ml @ 130 mls/hr IV . Q7H42M [facility] Rx#:[id number] Intake, IV Titration 400 Amount Potassium Chloride 10 meq 400 In Water For Injection 1 100ml.bag @ 100 mls/hr IVPB Q1HR [facility] Rx#: [id number] Oral 430 Output: Urine 360 200 Other: Voiding Method Indwelling Catheter Indwelling Catheter Indwelling Catheter - Exam GENERAL EXAM: Awake, alert, 53-year-old male, on room air. No current seizure activity. HEAD: Normocephalic. Left forehead abrasion EYES: Normal reaction of pupils, equal size. NOSE: Clear with pink turbinates. THROAT: No erythema or exudates. Edentulous. NECK: No masses, no JVD. CHEST: No chest wall deformity. LUNGS: Equal air entry with no crackles, wheeze, rhonchi or dullness. No conversational dyspnea or accessory muscle use. CVS: S1 and S2 normal with no audible murmur, regular rhythm. No extra heart jordan nds. Tachycardic. ABDOMEN: No hepatosplenomegaly, active bowel sounds, no guarding or rigidity. SPINE: No scoliosis or deformity SKIN: No rashes CENTRAL NERVOUS SYSTEM: No focal deficits, tone is normal in all 4 extremities. EXTREMITIES: There is no peripheral edema, clubbing, or cyanosis. Peripheral pulses are intact. - Labs CBC & Chem 7: 11/22/23 03:50 11/22/23 13:26 Labs: Microbiology - Last 24 Hours (Table) 11/20/23 21:15 Blood Culture - Preliminary Blood 11/20/23 21:45 Blood Culture - Preliminary Blood Assessment and Plan Assessment: Suspected acute alcohol withdrawal delirium tremens, unsure last known drink and serum EtOH level less than 10 on arrival, patient does have history of alcoholism and has had a recent hospitalization with similar presentation August, which required admission to the intensive care unit Suspected seizure, with history of seizure disorder Fall with abrasion to left forehead Atrial fibrillation with rapid ventricular response, converted with Cardizem drip, on Eliquis Acute hypoxemic respiratory failure, recovered and on room air, likely secondary to DTs, chest x-ray does not show any focal infiltrates or evidence of pneumonia. No reported aspiration events Acute kidney injury, likely secondary to severe dehydration and ATN Anion gap metabolic acidosis, recovered Hyperammonemia, recovered History of alcoholism History of CVA/TIA History of hypertension History of hyperlipidemia History of SVT with previous ablation History of syncope History of hypothyroidism History of anxiety and depression Plan: The patient was seen and evaluated Medications reviewed Stable and on room air Currently in sinus rhythm Eliquis initiated Remains on the CIWA protocol Remains in seizure precautions Plan is for home with his parents at discharge I have personally seen and examined the patient, performed the documentation and the assessment and plan as written. Number of minutes spent on the visit: 10.
--- NOTE | 2023-11-23 17:23 | P.PN ---
Subjective Progress Note Date: 11/23/23 Rodriguez SANTILLAN The patient is a 53-year-old gentleman with a past medical history significant for history of excessive alcohol use and history of CVA as well as hypertension and dyslipidemia and history of loop recorder implantation and underlying mental delay as well as multiple comorbid conditions. We are requested to see the patient in the intensive care unit for further evaluation of cardiac arrhythmia mainly atrial fibrillation with rapid ventricular response. The patient is extremely poor historian and the history was taken from the chart as well as from a nurse taking care of the patient. Currently the patient was brought by ambulance for concern regarding seizure. Subsequently the patient was brought to the emergency department. He was admitted to the intensive care unit because there was a concerned about alcohol withdrawal. He was and he continues to be hemodynamically stable until earlier today when he started experiencing tachycardia. No indication that the patient was experiencing any heart racing or fluttering or symptoms of chest pain or chest discomfort or shortness of devin th. Further investigation was performed including multiple EKGs but unfortunately all of them are of poor quality and the EKG showed finding concerning for supraventricular tachycardia versus atrial fibrillation/flutter with rapid ventricular response. The patient is known to have cardiac arrhythm ia from before. The hemoglobin is a stable. Electrolytes and kidney function are stable. Chest x-ray did not show any acute abnormalities. The CT scan of the brain also did not show any acute abnormalities. The examination is remarkable for regular rhythm with tachycardia and soft systolic murmur at the right upper sternal border with a clear breathing sounds bilaterally and no edema was noted November 22, 2023 The patient was seen and evaluated this morning. He continues to go through withdrawal. He converted to normal sinus mechanism. Currently he is on Toprol- XL. He is on heparin which I am going to stop and start him on oral anticoagulation using Eliquis at 5 mg p.o. twice daily. The echo still pending. He is still slightly confused and currently is lethargic. The examination is remarkable for stable vital signs. 11/22 Patient has been transferred to the cardiac stepdown unit from ICU. Patient has a product safety administrator at the bedside. He remains confused. He is in a sinus rhythm. Heart rate is in the 70s to 90s, blood pressure 141/75. He is currently on Eliquis Toprol 25 mg twice daily. Echocardiogram reveals EF of 55 to 60%. Mild aortic regurgitation. Evidence of prior inferior wall UT. Assessment Change in mental status likely secondary to alcohol withdrawal History of excessive alcohol use Possible alcohol withdrawal Cardiac arrhythmia with differential diagnosis of atrial flutter versus supraventricular tachycardia History of cardiac arrhythmia Multiple comorbid conditions Underlying mental delay Plan Continue the current dose of Toprol-XL Continue anticoagulation with Eliquis Cardiology will sign off this case and follow on an as-needed basis. Please reconsult for any new concerns. Patient may follow-up in the office in one to 2 weeks. Patient is stable to transfer to [facility] floor. Nurse practitioner note has been reviewed, I agree with documented findings and plan of care. Patient was seen and examined. Objective - Vital Signs Vital signs: Vital Signs Temp 97.1 F L 11/22/23 20:47 Pulse 95 11/23/23 03:40 Resp 16 11/23/23 03:40 BP 141/75 11/23/23 03:40 Pulse Ox 93 L 11/23/23 03:40 FiO2 100 11/20/23 19:35 Intake & Output 11/22/23 11/23/23 11/23/23 18:59 06:59 18:59 Intake Total 1570 30 Output Total 360 200 Balance 1210 -200 30 Weight 55.8 kg Intake: IV 1170 Sodium Chloride 0.9% 1, 1170 000 ml @ 130 mls/hr IV . [id number] FITO Rx#:[id number] Intake, IV Titration 400 Amount Potassium Chloride 10 meq 400 In Water For Injection 1 100ml.bag @ 100 mls/hr IVPB Q1HR FITO Rx#: [id number] Oral 30 Output: Urine 360 200 Other: Voiding Method Indwelling Catheter Indwelling Catheter - Labs CBC & Chem 7: 11/22/23 03:50 11/22/23 13:26 Labs: Microbiology - Last 24 Hours (Table) 11/20/23 21:15 Blood Culture - Preliminary Blood 11/20/23 21:45 Blood Culture - Preliminary Blood
[2023-11-23] MEDS: MORPHINE SULFATE 4 MG/ML SYRINGE IV PRN (22:41)
[2023-11-24 08:44] LABS: Basophils % (A) 0 %; Eosinophils # (A) 0.1 k/uL (0-0.7); Eosinophils % (A) 2 %; HGB 11.7 gm/dL (13.0-17.5); Lymphocytes # (A) 0.9 k/uL (1.0-4.8); Lymphocytes % (A) 16 %; MCH 34.2 pg (25.0-35.0); MCHC 31.7 g/dL (31.0-37.0); MCV 107.8 fL (80.0-100.0); Macrocytosis Marked; Mean Platelet Volume 7.5; Monocytes # (A) 0.4 k/uL (0-1.0); Monocytes % (A) 7 %; Neutrophils # (A) 3.9 k/uL (1.3-7.7); Neutrophils % (A) 73 %; RBC 3.43 m/uL (4.30-5.90); RDW 14.3 % (11.5-15.5); WBC 5.3 k/uL (3.8-10.6)
[2023-11-24 08:46] LABS: ALT 11 U/L (4-49); AST 31 U/L (17-59); African American GFR (CKD) >90 (>60 ml/min/1.73 sqM); Albumin 3.1 g/dL (3.5-5.0); Alkaline Phosphatase 64 U/L (38-126); Anion Gap 3 mmol/L; Blood Urea Nitrogen 3 mg/dL (9-20); Calcium 8.2 mg/dL (8.4-10.2); Carbon Dioxide 22 mmol/L (22-30); Chloride 113 mmol/L (98-107); Glucose 85 mg/dL (74-99); Non-African American GFR(CKD) >90 (>60 ml/min/1.73 sqM); Potassium 3.3 mmol/L (3.5-5.1); Sodium 138 mmol/L (137-145); Total Bilirubin 0.9 mg/dL (0.2-1.3); Total Protein 5.5 g/dL (6.3-8.2)
[2023-11-24 09:43] LABS: Platelet Count 147 k/uL (150-450)
--- NOTE | 2023-11-24 10:46 | P.PN ---
Subjective Progress Note Date: 11/24/23 This is a 53-year-old patient well-known to my services presented to the ER with concerns of Alcohol withdrawal's and questionable seizure. Patient has a past medical history of EtOH abuse along with seizures. Patient noted to have a laceration above left eye. Additional medical history includes CVA, h yperlipidemia, hypertension, SVT, syncope and cardiac ablation.CT of head completed showing no evidence of acute intracranial abnormality atrophy and chronic microvascular ischemia white matter changes.Chest x-ray completed showing no acute cardiopulmonary findings.EKG completed showing sinus tachyc ardia past with atrial flutter heart rate 147.UA negative. Drug screen negative. Serum alcohol less than 10 at this time patient will be admitted. Patient started on alcohol child protocol. Continue seizure precautions. Neurology, cardiology and critical care services have been consulted. At this time patient is sitting in bed sitter at bedside. Patient having some tremors On 11/22/2023 patient was seen and examined in the ICU, he is alert and responsive in no apparent distress, he denies any complaints at this time there is no fever or chills no headache or dizziness no chest pain no shortness of breath no cough no nausea or vomiting no abdominal pain no diarrhea and no urinary symptoms. Echocardiogram revealed preserved LV function with an ejection fraction of 50 to 55%, with evidence of prior inferior wall myocardial infarction. Patient was seen by neurology and EEG was performed, he is improving gradually. On 11/23/2023 patient was seen and examined on the medical floor he is alert and oriented x 3 in no apparent distress there is no fever or chills no headache or dizziness no chest pain no shortness of breath no cough no nausea or vomiting no abdominal pain no diarrhea no urinary symptoms, he is still having episodes of confusion and agitation, he has 24-hour sitter, he is receiving IV Ativan as needed, and received a dose of Haldol last night, neurology are following. On 11/24/2023 patient was seen and examined on the medical floor he is alert and oriented x 3 in no distress, he had episodes of agitation last night, requiring the use of Ativan and Haldol, at this time he has a sitter, he seems to be calm, there is no fever or chills no headache or dizziness no chest pain no shortness of breath no cough no nausea or vomiting no abdominal pain no diarrhea no u rinary symptoms, neurology input reviewed, I will add a psychiatry consult, I will continue to follow closely. Objective - Vital Signs Vital signs: Vital Signs Temp 98.8 F 11/24/23 08:54 Pulse 86 11/24/23 08:54 Resp 16 11/24/23 08:54 BP 133/92 11/24/23 08:54 Pulse Ox 97 11/24/23 08:54 FiO2 100 11/20/23 19:35 Intake & Output 11/23/23 11/24/23 11/24/23 18:59 06:59 18:59 Intake Total 667 320 Output Total 500 1600 Balance 167 -1280 Intake: Oral 667 320 Output: Urine 500 1600 Other: Voiding Method Indwelling Catheter Indwelling Catheter # Bowel Movements 1 - Exam In general patient is alert and oriented x 3 in no distress HEENT head normocephalic and atraumatic Neck is supple no JVD no goiter no lymphadenopathy no carotid bruit Chest examination is clear to auscultation no crackles no wheezing Cardiac exam reveals regular heart sounds S1 and S2 no gallops no murmurs Abdomen is soft nontender no organomegaly with normal bowel sounds Extremity exam reveals no edema no cyanosis or clubbing Neurological examination reveals no gross focal deficits - Labs CBC & Chem 7: 11/24/23 07:57 11/24/23 08:00 Labs: Abnormal Lab Results - Last 24 Hours (Table) 11/24/23 11/24/23 Range/Units 07:57 08:00 RBC 3.43 L (4.30-5.90) m/uL Hgb 11.7 L (13.0-17.5) gm/dL Hct 37.0 L (39.0-53.0) % MCV 107.8 H (80.0-100.0) fL Plt Count 147 L D (150-450) k/uL Lymphocytes # 0.9 L (1.0-4.8) k/uL Macrocytosis Marked A Potassium 3.3 L (3.5-5.1) mmol/L Chloride 113 H (98-107) mmol/L BUN 3 L (9-20) mg/dL Calcium 8.2 L (8.4-10.2) mg/dL Total Protein 5.5 L (6.3-8.2) g/dL Albumin 3.1 L (3.5-5.0) g/dL Microbiology - Last 24 Hours (Table) 11/20/23 21:15 Blood Culture - Preliminary Blood 11/20/23 21:45 Blood Culture - Preliminary Blood Assessment and Plan Assessment: 1. Alcohol withdrawals. Patient maintained on alcohol withdrawal protocol 2. Possible seizure 3. Fall with abrasion to left forehead 4. SVT. Cardiology services have been consulted 5. History of acute kidney injury 6. History of alcohol abuse 7. History of CVA 8. History of essential hypertension 9. History of hyperlipidemia 10. History of SVT with previous ablation 11. History of syncope 12. History of hypothyroidism 13. History of anxiety and depression DVT prophylaxis heparin. GI prophylaxis Protonix Patient to be admitted to the intensive care unit Continue seizure precautions [facility] Neurology, cardiology and critical care service is consulted Repeat labs ordered
--- NOTE | 2023-11-24 12:40 | P.PN ---
Subjective Progress Note Date: 11/24/23 Patient is a 53-year-old white male with past medical history significant for alcoholism, seizure disorder, CVA/TIA, hypertension, hyperlipidemia, SVT, hypothyroidism, among other things. Patient was brought in by EMS to the emergency department last night. He was witnessed to have a fall and suspected s eizure-like activity by his mother at home. He has an abrasion on his left forehead. He is also suspected of having alcohol withdrawal. He had a recent hospitalization back in August, for similar presentation. Brain CT done on arrival did not show any acute intracranial process. He is currently in the emergency department, room 1. He is altered. He is restless and wheeling in bed. He has generalized tremors. Diaphoretic. Tachycardic on bedside monitor. No further seizure activity noted by nurses. He does have alcoholism, unknown when last drink. Serum alcohol level was less than 10 on arrival. He is on the CIWA protocol. Most recent CIWA score was 21. He has received a total of 6 mg of Ativan so far. On his previous admission, he required Precedex infusion and admission to the intensive care unit at that time. CBC unremarkable. Initial BMP: Sodium 144, potassium 5.8, chloride 109, serum CO2 14, anion gap 21, BUN 16, creatinine 1.28, glucose 158. Mag 2.3. Saline infusing at 130 MLS per hour. LFTs not elevated. Total bilirubin 0.7. Ammonia level 78. Urinalysis not remarkable for UTI. Afebrile. Urine toxicology screen negative. Patient's suspected alcohol withdrawal will be treated in the intensive care unit. The patient is seen today November 22, 2023 in follow-up in the intensive care unit. He is currently sitting up in bed. Awake and alert in no acute distress. Maintaining O2 saturations in the 90s on room air. He has normal saline at 130 MLS per hour. His potassium is being replaced. He did go into atrial fibrillation with rapid ventricular response last night and was on a Cardizem drip and a heparin drip. He had been seen by cardiology today who discontinued the drips and initiated Eliquis. He is currently in sinus rhythm. He had been requiring Ativan hourly most of yesterday but in the evening he was down to about every 3 hours. He is cooperative currently. White count 3.8. Hemoglobin 10.2. Platelets 86,000. Sodium 140. Potassium 3.2. Bicarb 22. BUN 6. Creatinine 0.63. The patient is seen today November 23, 2023 in follow-up on the selective care unit. He is awake and alert in no acute distress. He is maintaining O2 saturations in the 90s on room air. He has normal staying at 130 MLS per hour. He has a campus safety officer at the bedside. He did require a dose of Haldol at approximately midnight. He remains on the CIWA protocol. No seizures noted. Remains on seizure precautions. Remains on Vimpat. Echocardiogram revealed preserved left ventricular systolic function. He is currently in a sinus rhythm. He is ant icoagulated with Eliquis. The patient is seen today November 24, 2023 in follow-up on the selective care unit. He is currently sitting up in bed. Awake and alert in no acute distress. He is maintaining good O2 saturations in the 90s on room air. No IV fluids. No recent seizure activity. Remains in seizure precautions. Remains on the CIWA protocol. Currently in sinus rhythm. Anticoagulated with Eliquis. Blood cultures revealed no growth. White count 5.3. Hemoglobin 11.7. Sodium 147. Potassium 3.3. Sodium 138. Bicarb 22. BUN 3. Creatinine 0.68. Glucose 85. Objective - Vital Signs Vital signs: Vital Signs Temp 98.3 F 11/24/23 11:14 Pulse 84 11/24/23 11:14 Resp 16 11/24/23 11:14 BP 132/90 11/24/23 11:14 Pulse Ox 98 11/24/23 11:14 FiO2 100 11/20/23 19:35 Intake & Output 11/23/23 11/24/23 11/24/23 18:59 06:59 18:59 Intake Total 667 320 0 Output Total 500 1600 500 Balance 167 -1280 -500 Intake: Oral 667 320 0 Output: Urine 500 1600 500 Other: Voiding Method Indwelling Catheter Indwelling Catheter Indwelling Catheter # Bowel Movements 1 - Exam GENERAL EXAM: Awake, 53-year-old male, sitting up in bed, on room air. No current seizure activity. HEAD: Normocephalic. Left forehead abrasion EYES: Normal reaction of pupils, equal size. NOSE: Clear with pink turbinates. THROAT: No erythema or exudates. Edentulous. NECK: No masses, no JVD. CHEST: No chest wall deformity. LUNGS: Equal air entry with no crackles, wheeze, rhonchi or dullness. No conversational dyspnea. CVS: S1 and S2 normal with no audible murmur, regular rhythm. No extra heart sounds. Tachycardic. ABDOMEN: No hepatosplenomegaly, active bowel sounds, no guarding or rigidity. SPINE: No scoliosis or deformity SKIN: No rashes CENTRAL NERVOUS SYSTEM: No focal deficits, tone is normal in all 4 extremities. EXTREMITIES: There is no peripheral edema, clubbing, or cyanosis. Peripheral pulses are intact. - Labs CBC & Chem 7: 11/24/23 07:57 11/24/23 08:00 Labs: Abnormal Lab Results - Last 24 Hours (Table) 11/24/23 11/24/23 Range/Units 07:57 08:00 RBC 3.43 L (4.30-5.90) m/uL Hgb 11.7 L (13.0-17.5) gm/dL Hct 37.0 L (39.0-53.0) % MCV 107.8 H (80.0-100.0) fL Plt Count 147 L D (150-450) k/uL Lymphocytes # 0.9 L (1.0-4.8) k/uL Macrocytosis Marked A Potassium 3.3 L (3.5-5.1) mmol/L Chloride 113 H (98-107) mmol/L BUN 3 L (9-20) mg/dL Calcium 8.2 L (8.4-10.2) mg/dL Total Protein 5.5 L (6.3-8.2) g/dL Albumin 3.1 L (3.5-5.0) g/dL Microbiology - Last 24 Hours (Table) 11/20/23 21:15 Blood Culture - Preliminary Blood 11/20/23 21:45 Blood Culture - Preliminary Blood Assessment and Plan Assessment: Suspected acute alcohol withdrawal delirium tremens, unsure last known drink and serum EtOH level less than 10 on arrival, patient does have history of alcoholism and has had a recent hospitalization with similar presentation August, which required admission to the intensive care unit Suspected seizure, with history of seizure disorder Fall with abrasion to left forehead Atrial fibrillation with rapid ventricular response, converted with Cardizem drip, on Eliquis Acute hypoxemic respiratory failure, recovered and on room air, likely secondary to DTs, chest x-ray does not show any focal infiltrates or evidence of pneumonia. No reported aspiration events Acute kidney injury, likely secondary to severe dehydration and ATN Anion gap metabolic acidosis, recovered Hyperammonemia, recovered History of alcoholism History of CVA/TIA History of hypertension History of hyperlipidemia History of SVT with previous ablation History of syncope History of hypothyroidism History of anxiety and depression Plan: The patient was seen and evaluated Medications and labs reviewed Stable and on room air Anticoagulated with Eliquis Remains on the CIWA protocol Remains in seizure precautions Cleared for discharge from the pulmonary standpoint I have personally seen and examined the patient, performed the documentation and the assessment and plan as written. Number of minutes spent on the visit: 10.
[2023-11-24] MEDS: HALOPERIDOL LACTATE 5 MG/ML 1 ML VIAL IM STA (15:46)
[2023-11-25] MEDS: LORazepam 1 MG/0.5 ML VIAL IV STA (06:13)
[2023-11-25 08:30] LABS: ALT 10 U/L (4-49); AST 30 U/L (17-59); African American GFR (CKD) >90 (>60 ml/min/1.73 sqM); Albumin 2.9 g/dL (3.5-5.0); Alkaline Phosphatase 57 U/L (38-126); Anion Gap 2 mmol/L; Blood Urea Nitrogen 2 mg/dL (9-20); Calcium 8.2 mg/dL (8.4-10.2); Carbon Dioxide 25 mmol/L (22-30); Chloride 111 mmol/L (98-107); Glucose 75 mg/dL (74-99); Non-African American GFR(CKD) >90 (>60 ml/min/1.73 sqM); Potassium 3.1 mmol/L (3.5-5.1); Sodium 138 mmol/L (137-145); Total Bilirubin 0.8 mg/dL (0.2-1.3); Total Protein 5.3 g/dL (6.3-8.2)
[2023-11-25 08:38] LABS: Basophils % (A) 0 %; Eosinophils # (A) 0.2 k/uL (0-0.7); Eosinophils % (A) 4 %; HCT 37.7 % (39.0-53.0); HGB 12.3 gm/dL (13.0-17.5); Lymphocytes % (A) 27 %; MCH 33.9 pg (25.0-35.0); MCHC 32.5 g/dL (31.0-37.0); MCV 104.1 fL (80.0-100.0); Macrocytosis Slight; Monocytes # (A) 0.3 k/uL (0-1.0); Monocytes % (A) 10 %; Neutrophils % (A) 57 %; Platelet Count 159 k/uL (150-450); RBC 3.62 m/uL (4.30-5.90); RDW 14.4 % (11.5-15.5); WBC 3.6 k/uL (3.8-10.6)
[2023-11-25] MEDS ORDERED: Potassium Replacement Protocol 1 EACH MISC MISCELLANE PRN ×2 (09:25→09:28)
--- NOTE | 2023-11-25 09:49 | P.PN ---
Subjective Progress Note Date: 11/25/23 This is a 53-year-old patient well-known to my services presented to the ER with concerns of Alcohol withdrawal's and questionable seizure. Patient has a past medical history of EtOH abuse along with seizures. Patient noted to have a laceration above left eye. Additional medical history includes CVA, h yperlipidemia, hypertension, SVT, syncope and cardiac ablation.CT of head completed showing no evidence of acute intracranial abnormality atrophy and chronic microvascular ischemia white matter changes.Chest x-ray completed showing no acute cardiopulmonary findings.EKG completed showing sinus tachyc ardia past with atrial flutter heart rate 147.UA negative. Drug screen negative. Serum alcohol less than 10 at this time patient will be admitted. Patient started on alcohol child protocol. Continue seizure precautions. Neurology, cardiology and critical care services have been consulted. At this time patient is sitting in bed sitter at bedside. Patient having some tremors On 11/22/2023 patient was seen and examined in the ICU, he is alert and responsive in no apparent distress, he denies any complaints at this time there is no fever or chills no headache or dizziness no chest pain no shortness of breath no cough no nausea or vomiting no abdominal pain no diarrhea and no urinary symptoms. Echocardiogram revealed preserved LV function with an ejection fraction of 50 to 55%, with evidence of prior inferior wall myocardial infarction. Patient was seen by neurology and EEG was performed, he is improving gradually. On 11/23/2023 patient was seen and examined on the medical floor he is alert and oriented x 3 in no apparent distress there is no fever or chills no headache or dizziness no chest pain no shortness of breath no cough no nausea or vomiting no abdominal pain no diarrhea no urinary symptoms, he is still having episodes of confusion and agitation, he has 24-hour sitter, he is receiving IV Ativan as needed, and received a dose of Haldol last night, neurology are following. On 11/24/2023 patient was seen and examined on the medical floor he is alert and oriented x 3 in no distress, he had episodes of agitation last night, requiring the use of Ativan and Haldol, at this time he has a sitter, he seems to be calm, there is no fever or chills no headache or dizziness no chest pain no shortness of breath no cough no nausea or vomiting no abdominal pain no diarrhea no u rinary symptoms, neurology input reviewed, I will add a psychiatry consult, I will continue to follow closely. On 11/25/2023 patient was seen and examined on the medical floor he is alert and oriented x 3 in no apparent distress there is no fever or chills no headache or dizziness no chest pain no shortness of breath no cough no nausea or vomiting no abdominal pain no diarrhea and no urinary symptoms, patient is still having occasional episodes of agitation, psychiatry consult requested, will continue to follow. Objective - Vital Signs Vital signs: Vital Signs Temp 98.2 F 11/25/23 04:00 Pulse 90 11/25/23 04:00 Resp 18 11/25/23 04:00 BP 128/92 11/25/23 04:00 Pulse Ox 95 11/25/23 04:00 FiO2 100 11/20/23 19:35 Intake & Output 11/24/23 11/25/23 11/25/23 18:59 06:59 18:59 Intake Total 433 10 Output Total 1200 Balance -767 10 Intake: IV 15 10 Invasive Line 2 5 10 Invasive Line 4 10 Oral 418 Output: Urine 1200 Other: Voiding Method Indwelling Catheter Indwelling Catheter - Exam In general patient is alert and oriented x 3 in no distress HEENT head normocephalic and atraumatic Neck is supple no JVD no goiter no lymphadenopathy no carotid bruit Chest examination is clear to auscultation no crackles no wheezing Cardiac exam reveals regular heart sounds S1 and S2 no gallops no murmurs Abdomen is soft nontender no organomegaly with normal bowel sounds Extremity exam reveals no edema no cyanosis or clubbing Neurological examination reveals no gross focal deficits - Labs CBC & Chem 7: 11/25/23 07:37 11/25/23 07:37 Labs: Abnormal Lab Results - Last 24 Hours (Table) 11/24/23 11/25/23 11/25/23 Range/Units 07:57 07:37 07:37 WBC 3.6 L (3.8-10.6) k/uL RBC 3.62 L (4.30-5.90) m/uL Hgb 12.3 L (13.0-17.5) gm/dL Hct 37.7 L (39.0-53.0) % MCV 104.1 H (80.0-100.0) fL Plt Count 147 L D (150-450) k/uL Lymphocytes # 0.9 L (1.0-4.8) k/uL Potassium 3.1 L (3.5-5.1) mmol/L Chloride 111 H (98-107) mmol/L BUN 2 L (9-20) mg/dL Calcium 8.2 L (8.4-10.2) mg/dL Total Protein 5.3 L (6.3-8.2) g/dL Albumin 2.9 L (3.5-5.0) g/dL Assessment and Plan Assessment: 1. Alcohol withdrawals. Patient maintained on alcohol withdrawal protocol 2. Possible seizure 3. Fall with abrasion to left forehead 4. SVT. Cardiology services have been consulted 5. History of acute kidney injury 6. History of alcohol abuse 7. History of CVA 8. History of essential hypertension 9. History of hyperlipidemia 10. History of SVT with previous ablation 11. History of syncope 12. History of hypothyroidism 13. History of anxiety and depression DVT prophylaxis heparin. GI prophylaxis Protonix Patient to be admitted to the intensive care unit Continue seizure precautions Continue [facility] Neurology, cardiology and critical care service is consulted Repeat labs ordered
[2023-11-25] MEDS: POTASSIUM CHLORIDE ER 20 MEQ TAB.ER PO SCH (12:29)
--- NOTE | 2023-11-25 12:30 | P.PN ---
Subjective Progress Note Date: 11/25/23 Patient is a 53-year-old white male with past medical history significant for alcoholism, seizure disorder, CVA/TIA, hypertension, hyperlipidemia, SVT, hypothyroidism, among other things. Patient was brought in by EMS to the emergency department last night. He was witnessed to have a fall and suspected s eizure-like activity by his mother at home. He has an abrasion on his left forehead. He is also suspected of having alcohol withdrawal. He had a recent hospitalization back in August, for similar presentation. Brain CT done on arrival did not show any acute intracranial process. He is currently in the emergency department, room 1. He is altered. He is restless and wheeling in bed. He has generalized tremors. Diaphoretic. Tachycardic on bedside monitor. No further seizure activity noted by nurses. He does have alcoholism, unknown when last drink. Serum alcohol level was less than 10 on arrival. He is on the CIWA protocol. Most recent CIWA score was 21. He has received a total of 6 mg of Ativan so far. On his previous admission, he required Precedex infusion and admission to the intensive care unit at that time. CBC unremarkable. Initial BMP: Sodium 144, potassium 5.8, chloride 109, serum CO2 14, anion gap 21, BUN 16, creatinine 1.28, glucose 158. Mag 2.3. Saline infusing at 130 MLS per hour. LFTs not elevated. Total bilirubin 0.7. Ammonia level 78. Urinalysis not remarkable for UTI. Afebrile. Urine toxicology screen negative. Patient's suspected alcohol withdrawal will be treated in the intensive care unit. The patient is seen today November 22, 2023 in follow-up in the intensive care unit. He is currently sitting up in bed. Awake and alert in no acute distress. Maintaining O2 saturations in the 90s on room air. He has normal saline at 130 MLS per hour. His potassium is being replaced. He did go into atrial fibrillation with rapid ventricular response last night and was on a Cardizem drip and a heparin drip. He had been seen by cardiology today who discontinued the drips and initiated Eliquis. He is currently in sinus rhythm. He had been requiring Ativan hourly most of yesterday but in the evening he was down to about every 3 hours. He is cooperative currently. White count 3.8. Hemoglobin 10.2. Platelets 86,000. Sodium 140. Potassium 3.2. Bicarb 22. BUN 6. Creatinine 0.63. The patient is seen today November 23, 2023 in follow-up on the selective care unit. He is awake and alert in no acute distress. He is maintaining O2 saturations in the 90s on room air. He has normal staying at 130 MLS per hour. He has a safety inspector at the bedside. He did require a dose of Haldol at approximately midnight. He remains on the CIWA protocol. No seizures noted. Remains on seizure precautions. Remains on Vimpat. Echocardiogram revealed preserved left ventricular systolic function. He is currently in a sinus rhythm. He is ant icoagulated with Eliquis. The patient is seen today November 24, 2023 in follow-up on the selective care unit. He is currently sitting up in bed. Awake and alert in no acute distress. He is maintaining good O2 saturations in the 90s on room air. No IV fluids. No recent seizure activity. Remains in seizure precautions. Remains on the CIWA protocol. Currently in sinus rhythm. Anticoagulated with Eliquis. Blood cultures revealed no growth. White count 5.3. Hemoglobin 11.7. Sodium 147. Potassium 3.3. Sodium 138. Bicarb 22. BUN 3. Creatinine 0.68. Glucose 85. The patient is seen today November 25, 2023 in follow-up on the selective care unit. He is awake and alert in no acute distress. He is resting in bed. No seizure activity. He did require additional Ativan for restlessness last evening. Today he is more cooperative. He was up in the shower with assistance. senior regulatory affairs specialist remains at the bedside. He remains anticoagulated with Eliquis. Blood cultures revealed no growth. White count 3.6. Hemoglobin 12.3. Platelets 159. Sodium 138. Potassium 3.1. Bicarb 25. BUN 2. Creatinine 0.73. Objective - Vital Signs Vital signs: Vital Signs Temp 97.7 F 11/25/23 09:05 Pulse 75 11/25/23 09:05 Resp 16 11/25/23 09:05 BP 119/77 11/25/23 09:05 Pulse Ox 98 11/25/23 09:05 FiO2 100 11/20/23 19:35 Intake & Output 06/02/0811/25/23 11/25/23 18:59 06:59 18:59 Intake Total 433 10 125 Output Total 1200 Balance -767 10 125 Intake: IV 15 10 5 Invasive Line 2 5 10 5 Invasive Line 4 10 Oral 418 120 Output: Urine 1200 Other: Voiding Method Indwelling Catheter Indwelling Catheter Indwelling Catheter - Exam GENERAL EXAM: Awake, currently cooperative 53-year-old male, sitting up in bed, on room air. No current seizure activity. HEAD: Normocephalic. Left forehead abrasion EYES: Normal reaction of pupils, equal size. NOSE: Clear with pink turbinates. THROAT: No erythema or exudates. Edentulous. NECK: No masses, no JVD. CHEST: No chest wall deformity. LUNGS: Equal air entry with no crackles, wheeze, rhonchi or dullness. No conversational dyspnea. CVS: S1 and S2 normal with no audible murmur, regular rhythm. No extra heart sounds. Tachycardic. ABDOMEN: No hepatosplenomegaly, active bowel sounds, no guarding or rigidity. SPINE: No scoliosis or deformity SKIN: No rashes CENTRAL NERVOUS SYSTEM: No focal deficits, tone is normal in all 4 extremities. EXTREMITIES: There is no peripheral edema, clubbing, or cyanosis. Peripheral pulses are intact. - Labs CBC & Chem 7: 11/25/23 07:37 11/25/23 07:37 Labs: Abnormal Lab Results - Last 24 Hours (Table) 11/25/23 11/25/23 Range/Units 07:37 07:37 WBC 3.6 L (3.8-10.6) k/uL RBC 3.62 L (4.30-5.90) m/uL Hgb 12.3 L (13.0-17.5) gm/dL Hct 37.7 L (39.0-53.0) % MCV 104.1 H (80.0-100.0) fL Potassium 3.1 L (3.5-5.1) mmol/L Chloride 111 H (98-107) mmol/L BUN 2 L (9-20) mg/dL Calcium 8.2 L (8.4-10.2) mg/dL Total Protein 5.3 L (6.3-8.2) g/dL Albumin 2.9 L (3.5-5.0) g/dL Assessment and Plan Assessment: Suspected acute alcohol withdrawal delirium tremens, unsure last known drink and serum EtOH level less than 10 on arrival, patient does have history of alcoholism and has had a recent hospitalization with similar presentation August, which required admission to the intensive care unit Suspected seizure, with history of seizure disorder Fall with abrasion to left forehead Atrial fibrillation with rapid ventricular response, converted with Cardizem drip, on Eliquis Acute hypoxemic respiratory failure, recovered and on room air, likely secondary to DTs, chest x-ray does not show any focal infiltrates or evidence of pneumonia. No reported aspiration events Acute kidney injury, likely secondary to severe dehydration and ATN Anion gap metabolic acidosis, recovered Hyperammonemia, recovered History of alcoholism History of CVA/TIA History of hypertension History of hyperlipidemia History of SVT with previous ablation History of syncope History of hypothyroidism History of anxiety and depression Plan: The patient was seen and evaluated Medications and labs reviewed Stable and on room air Continue the current treatment plan Cleared for discharge from the pulmonary standpoint I have personally seen and examined the patient, performed the documentation and the assessment and plan as written. Number of minutes spent on the visit: 10.
[2023-11-25] MEDS: LORazepam 0.5 MG TAB PO PRN (22:11)
[2023-11-26 07:45] LABS: Basophils % (A) 0 %; Eosinophils # (A) 0.1 k/uL (0-0.7); Eosinophils % (A) 3 %; HCT 36.2 % (39.0-53.0); HGB 12.1 gm/dL (13.0-17.5); Lymphocytes # (A) 0.6 k/uL (1.0-4.8); Lymphocytes % (A) 15 %; MCH 34.8 pg (25.0-35.0); MCHC 33.3 g/dL (31.0-37.0); MCV 104.4 fL (80.0-100.0); Macrocytosis Slight; Mean Platelet Volume 7.5; Monocytes # (A) 0.4 k/uL (0-1.0); Monocytes % (A) 9 %; Neutrophils % (A) 72 %; Platelet Count 170 k/uL (150-450); RBC 3.46 m/uL (4.30-5.90); RDW 14.6 % (11.5-15.5); WBC 4.1 k/uL (3.8-10.6)
[2023-11-26 08:27] LABS: ALT 10 U/L (4-49); African American GFR (CKD) >90 (>60 ml/min/1.73 sqM); Anion Gap 4 mmol/L; Blood Urea Nitrogen 4 mg/dL (9-20); Calcium 8.1 mg/dL (8.4-10.2); Carbon Dioxide 26 mmol/L (22-30); Chloride 110 mmol/L (98-107); Glucose 74 mg/dL (74-99); Non-African American GFR(CKD) >90 (>60 ml/min/1.73 sqM); Sodium 140 mmol/L (137-145); Total Bilirubin 0.8 mg/dL (0.2-1.3); Total Protein 5.3 g/dL (6.3-8.2)
[2023-11-26 08:29] LABS: AST 32 U/L (17-59); Alkaline Phosphatase 48 U/L (38-126); Potassium 3.5 mmol/L (3.5-5.1)
[2023-11-26] MEDS ORDERED: LORazepam 1 MG/0.5 ML VIAL IV PRN (11:57)
--- NOTE | 2023-11-26 12:33 | P.PN ---
Subjective Progress Note Date: 11/26/23 This is a 53-year-old patient well-known to my services presented to the ER with concerns of Alcohol withdrawal's and questionable seizure. Patient has a past medical history of EtOH abuse along with seizures. Patient noted to have a laceration above left eye. Additional medical history includes CVA, h yperlipidemia, hypertension, SVT, syncope and cardiac ablation.CT of head completed showing no evidence of acute intracranial abnormality atrophy and chronic microvascular ischemia white matter changes.Chest x-ray completed showing no acute cardiopulmonary findings.EKG completed showing sinus tachyc ardia past with atrial flutter heart rate 147.UA negative. Drug screen negative. Serum alcohol less than 10 at this time patient will be admitted. Patient started on alcohol child protocol. Continue seizure precautions. Neurology, cardiology and critical care services have been consulted. At this time patient is sitting in bed sitter at bedside. Patient having some tremors On 11/22/2023 patient was seen and examined in the ICU, he is alert and responsive in no apparent distress, he denies any complaints at this time there is no fever or chills no headache or dizziness no chest pain no shortness of breath no cough no nausea or vomiting no abdominal pain no diarrhea and no urinary symptoms. Echocardiogram revealed preserved LV function with an ejection fraction of 50 to 55%, with evidence of prior inferior wall myocardial infarction. Patient was seen by neurology and EEG was performed, he is improving gradually. On 11/23/2023 patient was seen and examined on the medical floor he is alert and oriented x 3 in no apparent distress there is no fever or chills no headache or dizziness no chest pain no shortness of breath no cough no nausea or vomiting no abdominal pain no diarrhea no urinary symptoms, he is still having episodes of confusion and agitation, he has 24-hour sitter, he is receiving IV Ativan as needed, and received a dose of Haldol last night, neurology are following. On 11/24/2023 patient was seen and examined on the medical floor he is alert and oriented x 3 in no distress, he had episodes of agitation last night, requiring the use of Ativan and Haldol, at this time he has a sitter, he seems to be calm, there is no fever or chills no headache or dizziness no chest pain no shortness of breath no cough no nausea or vomiting no abdominal pain no diarrhea no u rinary symptoms, neurology input reviewed, I will add a psychiatry consult, I will continue to follow closely. On 11/25/2023 patient was seen and examined on the medical floor he is alert and oriented x 3 in no apparent distress there is no fever or chills no headache or dizziness no chest pain no shortness of breath no cough no nausea or vomiting no abdominal pain no diarrhea and no urinary symptoms, patient is still having occasional episodes of agitation, psychiatry consult requested, will continue to follow. On 11/26/2023 patient was seen and examined on the medical floor he is alert and oriented x 3 in no apparent distress, he had an episode of severe anxiety with mild agitation this morning otherwise he denies any complaints there is no fever or chills no headache or dizziness no chest pain or shortness of breath no cough no nausea or vomiting no abdominal pain no diarrhea no urinary symptoms. At this time we are awaiting consult and recommendation from psychiatry. Objective - Vital Signs Vital signs: Vital Signs Temp 98.9 F 11/26/23 08:00 Pulse 88 11/26/23 08:00 Resp 16 11/26/23 08:00 BP 136/88 11/26/23 08:00 Pulse Ox 100 11/26/23 08:00 FiO2 100 11/20/23 19:35 Intake & Output 11/25/23 11/26/23 11/26/23 18:59 06:59 18:59 Intake Total 1090 5 474 Balance 1090 5 474 Intake: IV 10 5 Invasive Line 2 10 5 Oral 1080 474 Other: Voiding Method Indwelling Catheter Toilet Urinal # Voids 2 - Exam In general patient is alert and oriented x 3 in no distress HEENT head normocephalic and atraumatic Neck is supple no JVD no goiter no lymphadenopathy no carotid bruit Chest examination is clear to auscultation no crackles no wheezing Cardiac exam reveals regular heart sounds S1 and S2 no gallops no murmurs Abdomen is soft nontender no organomegaly with normal bowel sounds Extremity exam reveals no edema no cyanosis or clubbing Neurological examination reveals no gross focal deficits - Labs CBC & Chem 7: 11/26/23 06:42 11/26/23 06:42 Labs: Abnormal Lab Results - Last 24 Hours (Table) 11/26/23 11/26/23 Range/Units 06:42 06:42 RBC 3.46 L (4.30-5.90) m/uL Hgb 12.1 L (13.0-17.5) gm/dL Hct 36.2 L (39.0-53.0) % MCV 104.4 H (80.0-100.0) fL Lymphocytes # 0.6 L (1.0-4.8) k/uL Chloride 110 H (98-107) mmol/L BUN 4 L (9-20) mg/dL Calcium 8.1 L (8.4-10.2) mg/dL Total Protein 5.3 L (6.3-8.2) g/dL Albumin 3.0 L (3.5-5.0) g/dL Microbiology - Last 24 Hours (Table) 11/20/23 21:15 Blood Culture - Final Blood 11/20/23 21:45 Blood Culture - Final Blood Assessment and Plan Assessment: 1. Alcohol withdrawals. Patient maintained on alcohol withdrawal protocol 2. Possible seizure 3. Fall with abrasion to left forehead 4. SVT. Cardiology services have been consulted 5. History of acute kidney injury 6. History of alcohol abuse 7. History of CVA 8. History of essential hypertension 9. History of hyperlipidemia 10. History of SVT with previous ablation 11. History of syncope 12. History of hypothyroidism 13. History of anxiety and depression DVT prophylaxis heparin. GI prophylaxis Protonix Patient to be admitted to the intensive care unit Continue seizure precautions Continue [facility] Neurology, cardiology and critical care service is consulted Repeat labs ordered
[2023-11-26] MEDS: LORazepam 2 MG/ML INJ IV PRN ×2 (13:09→14:30)
[2023-11-26] MEDS: ACETAMINOPHEN TAB 500 MG TAB PO PRN (16:22)
--- NOTE | 2023-11-26 17:39 | P.PN ---
Subjective Progress Note Date: 11/26/23 Patient is a 53-year-old white male with past medical history significant for alcoholism, seizure disorder, CVA/TIA, hypertension, hyperlipidemia, SVT, hypothyroidism, among other things. Patient was brought in by EMS to the emergency department last night. He was witnessed to have a fall and suspected seizure-like activity by his mother at home. He has an abrasion on his left forehead. He is also suspected of having alcohol withdrawal. He had a recent hospitalization back in August, for similar presentation. Brain CT done on arrival did not show any acute intracranial process. He is currently in the emergency department, room 1. He is altered. He is restless and wheeling in bed. He has generalized tremors. Diaphoretic. Tachycardic on bedside monitor. No further seizure activity noted by nurses. He does have alcoholism, unknown when last drink. Serum alcohol level was less than 10 on arrival. He is on the CIWA protocol. Most recent CIWA score was 21. He has received a total of 6 mg of Ativan so far. On his previous admission, he required Precedex infusion and admission to the intensive care unit at that time. CBC unremarkable. Initial BMP: Sodium 144, potassium 5.8, chloride 109, serum CO2 14, anion gap 21, BUN 16, creatinine 1.28, glucose 158. Mag 2.3. Saline infusing at 130 MLS per hour. LFTs not elevated. Total bilirubin 0.7. Ammonia level 78. Urinalysis not remarkable for UTI. Afebrile. Urine toxicology screen negative. Patient's suspected alcohol withdrawal will be treated in the intensive care unit. The patient is seen today November 22, 2023 in follow-up in the intensive care unit. He is currently sitting up in bed. Awake and alert in no acute distress. Maintaining O2 saturations in the 90s on room air. He has normal saline at 130 MLS per hour. His potassium is being replaced. He did go into atrial fibrillation with rapid ventricular response last night and was on a Cardizem drip and a heparin drip. He had been seen by cardiology today who discontinued the drips and initiated Eliquis. He is currently in sinus rhythm. He had been requiring Ativan hourly most of yesterday but in the evening he was down to about every 3 hours. He is cooperative currently. White count 3.8. Hemoglobin 10.2. Platelets 86,000. Sodium 140. Potassium 3.2. Bicarb 22. BUN 6. Creatinine 0.63. The patient is seen today November 23, 2023 in follow-up on the selective care unit. He is awake and alert in no acute distress. He is maintaining O2 saturations in the 90s on room air. He has normal staying at 130 MLS per hour. He has a safety investigator at the bedside. He did require a dose of Haldol at approximately midnight. He remains on the CIWA protocol. No seizures noted. Remains on seizure precautions. Remains on Vimpat. Echocardiogram revealed preserved left ventricular systolic function. He is currently in a sinus rhythm. He is an ticoagulated with Eliquis. The patient is seen today November 24, 2023 in follow-up on the selective care unit. He is currently sitting up in bed. Awake and alert in no acute distress. He is maintaining good O2 saturations in the 90s on room air. No IV fluids. No recent seizure activity. Remains in seizure precautions. Remains on the CIWA protocol. Currently in sinus rhythm. Anticoagulated with Eliquis. Blood cultures revealed no growth. White count 5.3. Hemoglobin 11.7. Sodium 147. Potassium 3.3. Sodium 138. Bicarb 22. BUN 3. Creatinine 0.68. Glucose 85. The patient is seen today November 25, 2023 in follow-up on the selective care unit. He is awake and alert in no acute distress. He is resting in bed. No seizure activity. He did require additional Ativan for restlessness last evening. Today he is more cooperative. He was up in the shower with assistance. vault custodian remains at the bedside. He remains anticoagulated with Eliquis. Blood cultures revealed no growth. White count 3.6. Hemoglobin 12.3. Platelets 159. Sodium 138. Potassium 3.1. Bicarb 25. BUN 2. Creatinine 0.73. On today's evaluation of 11/26/2023, the patient is being seen for a follow-up. Noted to be slightly confused, nevertheless, there is no focal neurological deficit. Moving all 4 extremities other than limitation. There is increased anxiety and some occasional restlessness and agitation. No respiratory difficulties. No cough or sputum production or chest tightness or wheezing. He has history of alcoholism. The white cell count is at 4.1 with a hemoglobin 12.1 and a platelet count of 170. BUN is at 4 with a creatinine of 0.7 and sodium is at 140. A follow-up chest x-ray was done today and shows no acute abnormalities. There could be some limited atelectatic changes in the left lung base. The patient remains on Remeron and Seroquel at bedtime. The patient is also on Lamictal 50 mg p.o. twice a day. He takes long-term anticoagulation with Eliquis 5 mg p.o. twice a day. Objective - Vital Signs Vital signs: Vital Signs Temp 98.9 F 11/26/23 08:00 Pulse 88 11/26/23 08:00 Resp 16 11/26/23 08:00 BP 136/88 11/26/23 08:00 Pulse Ox 100 11/26/23 08:00 FiO2 100 11/20/23 19:35 Intake & Output 11/25/23 11/26/23 11/26/23 18:59 06:59 18:59 Intake Total 1090 5 474 Balance 1090 5 474 Intake: IV 10 5 Invasive Line 2 10 5 Oral 1080 474 Other: Voiding Method Indwelling Catheter Toilet Urinal # Voids 2 - Exam GENERAL EXAM: Awake, currently cooperative 53-year-old male, sitting up in bed, on room air. No current seizure activity. HEAD: Normocephalic. Left forehead abrasion EYES: Normal reaction of pupils, equal size. NOSE: Clear with pink turbinates. THROAT: No erythema or exudates. Edentulous. NECK: No masses, no JVD. CHEST: No chest wall deformity. LUNGS: Equal air entry with no crackles, wheeze, rhonchi or dullness. No conversational dyspnea. CVS: S1 and S2 normal with no audible murmur, regular rhythm. No extra heart sounds. Tachycardic. ABDOMEN: No hepatosplenomegaly, active bowel sounds, no guarding or rigidity. SPINE: No scoliosis or deformity SKIN: No rashes CENTRAL NERVOUS SYSTEM: No focal deficits, tone is normal in all 4 extremities. EXTREMITIES: There is no peripheral edema, clubbing, or cyanosis. Peripheral pulses are intact. - Labs CBC & Chem 7: 11/26/23 06:42 11/26/23 06:42 Labs: Abnormal Lab Results - Last 24 Hours (Table) 11/26/23 11/26/23 Range/Units 06:42 06:42 RBC 3.46 L (4.30-5.90) m/uL Hgb 12.1 L (13.0-17.5) gm/dL Hct 36.2 L (39.0-53.0) % MCV 104.4 H (80.0-100.0) fL Lymphocytes # 0.6 L (1.0-4.8) k/uL Chloride 110 H (98-107) mmol/L BUN 4 L (9-20) mg/dL Calcium 8.1 L (8.4-10.2) mg/dL Total Protein 5.3 L (6.3-8.2) g/dL Albumin 3.0 L (3.5-5.0) g/dL Microbiology - Last 24 Hours (Table) 11/20/23 21:15 Blood Culture - Final Blood 11/20/23 21:45 Blood Culture - Final Blood Assessment and Plan Plan: acute alcohol withdrawal delirium tremens, unsure last known drink and serum EtOH level less than 10 on arrival, patient does have history of alcoholism and has had a recent hospitalization with similar presentation August, which required admission to the intensive care unit, currently the patient is on the medical floor. Some ongoing episodes of confusion still noted. Suspected seizure, with history of seizure disorder, currently on Vimpat Fall with abrasion to left forehead Atrial fibrillation with rapid ventricular response, converted with Cardizem drip, on Eliquis Acute hypoxemic respiratory failure, recovered and on room air, likely secondary to DTs, chest x-ray does not show any focal infiltrates or evidence of pneumonia. No reported aspiration events, chest x-ray within normal limits and the patient is currently on room air oxygen Acute kidney injury, likely secondary to severe dehydration and ATN, recovered, renal function is normal Anion gap metabolic acidosis, recovered Hyperammonemia, recovered History of alcoholism History of CVA/TIA History of hypertension History of hyperlipidemia History of SVT with previous ablation History of syncope History of hypothyroidism History of anxiety and depression Plan: Chest x-ray was noted and essentially clear with some limited atelectatic change the left lung base Stable and on room air Continue the current treatment plan Continue Remeron and Seroquel Continue Vimpat Continue anticoagulation with Eliquis Monitor mental status Will continue to follow
--- NOTE | 2023-11-26 18:08 | XR ---
EXAMINATION TYPE: XR chest 1V portable DATE OF EXAM: 11/26/2023 COMPARISON: 11/20/2023 HISTORY: Febrile etiology unknown TECHNIQUE: Single frontal view of the chest is obtained. FINDINGS: There is mild interstitial opacity left lung base with a small left pleural effusion. The right lung is clear. The heart size is normal. The pulmonary vasculature is not congested. The osseous structures are intact IMPRESSION: Possible acute infiltrate and small effusion in the left lung base. Short-term follow-up suggested. Findings could indicate developing pneumonia.
[2023-11-27 07:09] LABS: Basophils % (A) 1 %; Eosinophils % (A) 1 %; HCT 37.2 % (39.0-53.0); HGB 11.8 gm/dL (13.0-17.5); Lymphocytes # (A) 0.7 k/uL (1.0-4.8); Lymphocytes % (A) 16 %; MCH 33.2 pg (25.0-35.0); MCHC 31.8 g/dL (31.0-37.0); MCV 104.3 fL (80.0-100.0); Macrocytosis Slight; Mean Platelet Volume 7.4; Monocytes # (A) 0.5 k/uL (0-1.0); Monocytes % (A) 11 %; Neutrophils # (A) 3.1 k/uL (1.3-7.7); Neutrophils % (A) 69 %; Platelet Count 166 k/uL (150-450); RBC 3.56 m/uL (4.30-5.90); RDW 14.6 % (11.5-15.5); WBC 4.5 k/uL (3.8-10.6)
[2023-11-27 07:55] LABS: ALT 11 U/L (4-49); AST 33 U/L (17-59); African American GFR (CKD) >90 (>60 ml/min/1.73 sqM); Albumin 3.3 g/dL (3.5-5.0); Alkaline Phosphatase 52 U/L (38-126); Anion Gap 6 mmol/L; Blood Urea Nitrogen 7 mg/dL (9-20); Calcium 8.1 mg/dL (8.4-10.2); Carbon Dioxide 25 mmol/L (22-30); Chloride 104 mmol/L (98-107); Glucose 77 mg/dL (74-99); Non-African American GFR(CKD) >90 (>60 ml/min/1.73 sqM); Potassium 3.3 mmol/L (3.5-5.1); Sodium 135 mmol/L (137-145); Total Bilirubin 0.9 mg/dL (0.2-1.3); Total Protein 5.8 g/dL (6.3-8.2)
[2023-11-27 08:47] LABS: Appearance,Urine Clear (Clear); Bilirubin,Urine Negative (Negative); Blood,Urine Negative (Negative); Color,Urine Light Yellow; Glucose,Urine (UA) Negative (Negative); Ketones,Urine Negative (Negative); Leukocyte Esterase,Urine Negative (Negative); Nitrite,Urine Negative (Negative); Protein,Urine Negative (Negative); Specific Gravity,Urine 1.009 (1.001-1.035); Urobilinogen,Urine <2.0 mg/dL (<2.0)
[2023-11-27] MEDS: POTASSIUM CHLORIDE ER 20 MEQ TAB.ER PO SCH (08:57)
--- NOTE | 2023-11-27 10:21 | P.PN ---
Subjective Progress Note Date: 11/26/23 Patient was seen for a follow-up. Patient initially seen by Dr. Maxwell Hooks. Please refer to his note for details. Patient is a 53-year-old male known to neurology service from multiple admissions for mental confusion and had multiple EEGs which were negative. Dr. Hooks was not sure if it is alcohol/DT related or seizure that has not been picked up. Patient is currently on Vimpat and Dr. Hooks increase the dose of Lamictal from 25 twice daily to 50 mg twice daily. Patient remembers me by my name from previous hospitalization. Patient states that he feels a lot better. Patient is in no distress. Complains of some dizziness. Patient has received morphine earlier today, therefore is slightly confused. However he has developed new-onset temperature of 102.4. He had undergone chest x-ray and UA. Results pending. Per nursing report, is very confused, hallucinating, delirious. Some of the workup during this hospital visit consisted of: Has been severely tachycardic on presentation initially in the 275 then in the 150s to 160s MCV is 110 and repeat is 107 Calcium is 5.8 Creatinine is 1.28 and repeat is normal Initial serum glucose is 158 Calcium is normal Magnesium is 2.3 AST ALT is within normal limits Ammonia is 78 and repeat <9 Urine drug screen is not detected and the urine alcohol is less than 10. CT of the head is reported as no CT evidence of acute intracranial abnormality. Atrophy and chronic microvascular ischemic white matter changes. Reviewed the CT and I agree with the report. EKG is reported as atrial flutter/tachycardia with RVR. Routine EEG: Is abnormal. The background slowing is suggestive of moderate encephalopathy. There is no focal slowing, epileptiform discharges or seizure on the EEG. 2D echo: Presevered LV function with EF 50-55%. Dilated left atrium. Evidence of prior inferior wall [place]. Objective - Vital Signs Vital signs: Vital Signs Temp 102.4 F H 11/26/23 15:46 Pulse 100 11/26/23 15:46 Resp 16 11/26/23 15:46 BP 137/82 11/26/23 15:46 Pulse Ox 100 11/26/23 15:46 FiO2 100 11/20/23 19:35 Intake & Output 11/25/23 11/26/23 11/26/23 18:59 06:59 18:59 Intake Total 1090 5 832 Balance 1090 5 832 Weight 54.703 kg Intake: IV 10 5 Invasive Line 2 10 5 Oral 1080 832 Other: Voiding Method Indwelling Catheter Toilet Urinal # Voids 2 - Exam Patient is alert and awake, appears slightly spacey. He remembers me by my name from previous hospitalization. Patient states it is the month of November and the year is 2013. 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 He knows that he is in [place] in [place]. Speech and language functions are normal. No aphasia. On cranial examination pupils are equal, round and reacting. Visual french are full, with no neglect. Face is symmetric and tongue protrudes the midline. On muscle strength testing, the muscle strength is normal in the lower extremities in the hip flexion and ankle dorsiflexion. In the upper limbs, is mostly 5-with rn plastics about 5 bilaterally. No ataxia for [id number] testing. Patient has peripheral edema. - Labs CBC & Chem 7: 11/27/23 06:16 11/27/23 06:16 Labs: Abnormal Lab Results - Last 24 Hours (Table) 11/26/23 11/26/23 Range/Units 06:42 06:42 RBC 3.46 L (4.30-5.90) m/uL Hgb 12.1 L (13.0-17.5) gm/dL Hct 36.2 L (39.0-53.0) % MCV 104.4 H (80.0-100.0) fL Lymphocytes # 0.6 L (1.0-4.8) k/uL Chloride 110 H (98-107) mmol/L BUN 4 L (9-20) mg/dL Calcium 8.1 L (8.4-10.2) mg/dL Total Protein 5.3 L (6.3-8.2) g/dL Albumin 3.0 L (3.5-5.0) g/dL Microbiology - Last 24 Hours (Table) 11/20/23 21:15 Blood Culture - Final Blood 11/20/23 21:45 Blood Culture - Final Blood Assessment and Plan Assessment: This is a 53-year-old gentleman presents emergency department for suspected seizure, and the family felt he was having jerking movement tends to fall as a result of the seizure. Patient has previous history of alcohol withdrawal/delirium tremens. Patient has history of seizure and had multiple EEGs in our facility as well as a prolonged EEG which were negative for any seizures or discharges. He was last seen by our neurology steam press tender on 09/17/2023 and was felt he has delirium due to hypoglycemia. Currently his alcohol level is less than 10 Encephalopathy, probably toxic metabolic New-onset fever, rule out pneumonia versus UTI. Elevated ammonia level History of seizure and patient had multiple EEGs as well as prolonged EEG in our facility which were negative for any seizure or discharges Microcytic anemia is felt likely due to alcoholism History of cardiomyopathy status post ablation Hypothyroidism History of remote right basal ganglia stroke History of psychosis requiring admission to the [facility] Anxiety depression Alcohol use Plan: Patient is resumed on his home medication of Vimpat [address] Hooks has increased his home dose of Lamictal 25 mg twice daily to 50mg bid. Seizure precaution and pad. Dr. Hooks has recommended outpatient epilepsy monitoring unit (EMU) for evaluation if truly having any seizure and discharges. Patient is on CIWA protocol. Over the SVT cardiology is consulted Continue thiamine. Per [place] DMV because of seizure, avoid driving for 6 months until seizure fee, avoid heights, avoid swimming unassisted or using heavy machinery. Will defer the rest of the medical management to primary and other specialists Upon discharge, recommend the patient to follow-up with his neurologist (Dr. Mcadams) as outpatient withing 1-2 weeks Patient being worked up for new onset of fever. Undergoing chest x-ray and a U A.
[2023-11-27] MEDS: AZITHROMYCIN 500 MG in SODIUM CHLORIDE 0.9% 250 ML IVPB SCH (10:22)
--- NOTE | 2023-11-27 10:24 | P.PN ---
Subjective Progress Note Date: 11/27/23 This is a 53-year-old patient well-known to my services presented to the ER with concerns of Alcohol withdrawal's and questionable seizure. Patient has a past medical history of EtOH abuse along with seizures. Patient noted to have a laceration above left eye. Additional medical history includes CVA, h yperlipidemia, hypertension, SVT, syncope and cardiac ablation.CT of head completed showing no evidence of acute intracranial abnormality atrophy and chronic microvascular ischemia white matter changes.Chest x-ray completed showing no acute cardiopulmonary findings.EKG completed showing sinus tachyc ardia past with atrial flutter heart rate 147.UA negative. Drug screen negative. Serum alcohol less than 10 at this time patient will be admitted. Patient started on alcohol child protocol. Continue seizure precautions. Neurology, cardiology and critical care services have been consulted. At this time patient is sitting in bed sitter at bedside. Patient having some tremors On 11/22/2023 patient was seen and examined in the ICU, he is alert and responsive in no apparent distress, he denies any complaints at this time there is no fever or chills no headache or dizziness no chest pain no shortness of breath no cough no nausea or vomiting no abdominal pain no diarrhea and no urinary symptoms. Echocardiogram revealed preserved LV function with an ejection fraction of 50 to 55%, with evidence of prior inferior wall myocardial infarction. Patient was seen by neurology and EEG was performed, he is improving gradually. On 11/23/2023 patient was seen and examined on the medical floor he is alert and oriented x 3 in no apparent distress there is no fever or chills no headache or dizziness no chest pain no shortness of breath no cough no nausea or vomiting no abdominal pain no diarrhea no urinary symptoms, he is still having episodes of confusion and agitation, he has 24-hour sitter, he is receiving IV Ativan as needed, and received a dose of Haldol last night, neurology are following. On 11/24/2023 patient was seen and examined on the medical floor he is alert and oriented x 3 in no distress, he had episodes of agitation last night, requiring the use of Ativan and Haldol, at this time he has a sitter, he seems to be calm, there is no fever or chills no headache or dizziness no chest pain no shortness of breath no cough no nausea or vomiting no abdominal pain no diarrhea no u rinary symptoms, neurology input reviewed, I will add a psychiatry consult, I will continue to follow closely. On 11/25/2023 patient was seen and examined on the medical floor he is alert and oriented x 3 in no apparent distress there is no fever or chills no headache or dizziness no chest pain no shortness of breath no cough no nausea or vomiting no abdominal pain no diarrhea and no urinary symptoms, patient is still having occasional episodes of agitation, psychiatry consult requested, will continue to follow. On 11/26/2023 patient was seen and examined on the medical floor he is alert and oriented x 3 in no apparent distress, he had an episode of severe anxiety with mild agitation this morning otherwise he denies any complaints there is no fever or chills no headache or dizziness no chest pain or shortness of breath no cough no nausea or vomiting no abdominal pain no diarrhea no urinary symptoms. At this time we are awaiting consult and recommendation from psychiatry. On 11/27/2023 patient is alert and oriented 3. Patient had elevated temperature 103. UA negative. Chest x-ray completed showing possible acute infiltrate and small effusion left lung base. Pulmonary services are following. Will reconsult neurology services to further assess she needs lumbar puncture. Patient was started on antibiotics blood and sputum cultures ordered.Patient denies any chest pain or shortness breath. Patient denies nausea and diarrhea. Patient denies any urinary burning or frequency Objective - Vital Signs Vital signs: Vital Signs Temp 99.1 F 11/27/23 08:00 Pulse 78 11/27/23 08:00 Resp 18 11/27/23 08:00 BP 126/77 11/27/23 08:00 Pulse Ox 97 11/27/23 08:00 FiO2 100 11/20/23 19:35 Intake & Output 11/26/23 11/27/23 11/27/23 18:59 06:59 18:59 Intake Total 1862 240 Output Total 200 Balance 1862 40 Weight 54.703 kg 57 kg Intake: Oral 1862 240 Output: Urine 200 Other: Voiding Method Toilet Toilet Toilet Urinal Urinal # Voids 3 1 - Exam In general patient is alert and oriented x 3 in no distress HEENT head normocephalic and atraumatic Neck is supple no JVD no goiter no lymphadenopathy no carotid bruit Chest examination is clear to auscultation no crackles no wheezing Cardiac exam reveals regular heart sounds S1 and S2 no gallops no murmurs Abdomen is soft nontender no organomegaly with normal bowel sounds Extremity exam reveals no edema no cyanosis or clubbing Neurological examination reveals no gross focal deficits - Labs CBC & Chem 7: 11/27/23 06:16 11/27/23 06:16 Labs: Abnormal Lab Results - Last 24 Hours (Table) 11/27/23 11/27/23 Range/Units 06:16 06:16 RBC 3.56 L (4.30-5.90) m/uL Hgb 11.8 L (13.0-17.5) gm/dL Hct 37.2 L (39.0-53.0) % MCV 104.3 H (80.0-100.0) fL Lymphocytes # 0.7 L (1.0-4.8) k/uL Sodium 135 L (137-145) mmol/L Potassium 3.3 L (3.5-5.1) mmol/L BUN 7 L (9-20) mg/dL Calcium 8.1 L (8.4-10.2) mg/dL Total Protein 5.8 L (6.3-8.2) g/dL Albumin 3.3 L (3.5-5.0) g/dL Assessment and Plan Assessment: 1. Alcohol withdrawals. Patient maintained on alcohol withdrawal protocol 2. Possible seizure 3. Fall with abrasion to left forehead 4. SVT. Cardiology services have been consulted 5. History of acute kidney injury 6. History of alcohol abuse 7. History of CVA 8. History of essential hypertension 9. History of hyperlipidemia 10. History of SVT with previous ablation 11. History of syncope 12. History of hypothyroidism 13. History of anxiety and depression 14. febrile possible pneumonia. Patient started on IV antibiotics DVT prophylaxis heparin. GI prophylaxis Protonix Patient to be admitted to the intensive care unit Continue seizure precautions Continue [facility] Neurology, cardiology and critical care service is consulted Repeat labs ordered
--- NOTE | 2023-11-27 13:12 | P.PN ---
Subjective Progress Note Date: 11/27/23 Patient is a 53-year-old white male with past medical history significant for alcoholism, seizure disorder, CVA/TIA, hypertension, hyperlipidemia, SVT, hypothyroidism, among other things. Patient was brought in by EMS to the emergency department last night. He was witnessed to have a fall and suspected seizure-like activity by his mother at home. He has an abrasion on his left forehead. He is also suspected of having alcohol withdrawal. He had a recent hospitalization back in August, for similar presentation. Brain CT done on arrival did not show any acute intracranial process. He is currently in the emergency department, room 1. He is altered. He is restless and wheeling in bed. He has generalized tremors. Diaphoretic. Tachycardic on bedside monitor. No further seizure activity noted by nurses. He does have alcoholism, unknown when last drink. Serum alcohol level was less than 10 on arrival. He is on the CIWA protocol. Most recent CIWA score was 21. He has received a total of 6 mg of Ativan so far. On his previous admission, he required Precedex infusion and admission to the intensive care unit at that time. CBC unremarkable. Initial BMP: Sodium 144, potassium 5.8, chloride 109, serum CO2 14, anion gap 21, BUN 16, creatinine 1.28, glucose 158. Mag 2.3. Saline infusing at 130 MLS per hour. LFTs not elevated. Total bilirubin 0.7. Ammonia level 78. Urinalysis not remarkable for UTI. Afebrile. Urine toxicology screen negative. Patient's suspected alcohol withdrawal will be treated in the intensive care unit. The patient is seen today November 22, 2023 in follow-up in the intensive care unit. He is currently sitting up in bed. Awake and alert in no acute distress. Maintaining O2 saturations in the 90s on room air. He has normal saline at 130 MLS per hour. His potassium is being replaced. He did go into atrial fibrillation with rapid ventricular response last night and was on a Cardizem drip and a heparin drip. He had been seen by cardiology today who discontinued the drips and initiated Eliquis. He is currently in sinus rhythm. He had been requiring Ativan hourly most of yesterday but in the evening he was down to about every 3 hours. He is cooperative currently. White count 3.8. Hemoglobin 10.2. Platelets 86,000. Sodium 140. Potassium 3.2. Bicarb 22. BUN 6. Creatinine 0.63. The patient is seen today November 23, 2023 in follow-up on the selective care unit. He is awake and alert in no acute distress. He is maintaining O2 saturations in the 90s on room air. He has normal staying at 130 MLS per hour. He has a safety teacher at the bedside. He did require a dose of Haldol at approximately midnight. He remains on the CIWA protocol. No seizures noted. Remains on seizure precautions. Remains on Vimpat. Echocardiogram revealed preserved left ventricular systolic function. He is currently in a sinus rhythm. He is an ticoagulated with Eliquis. The patient is seen today November 24, 2023 in follow-up on the selective care unit. He is currently sitting up in bed. Awake and alert in no acute distress. He is maintaining good O2 saturations in the 90s on room air. No IV fluids. No recent seizure activity. Remains in seizure precautions. Remains on the CIWA protocol. Currently in sinus rhythm. Anticoagulated with Eliquis. Blood cultures revealed no growth. White count 5.3. Hemoglobin 11.7. Sodium 147. Potassium 3.3. Sodium 138. Bicarb 22. BUN 3. Creatinine 0.68. Glucose 85. The patient is seen today November 25, 2023 in follow-up on the selective care unit. He is awake and alert in no acute distress. He is resting in bed. No seizure activity. He did require additional Ativan for restlessness last evening. Today he is more cooperative. He was up in the shower with assistance. principal hardware architect remains at the bedside. He remains anticoagulated with Eliquis. Blood cultures revealed no growth. White count 3.6. Hemoglobin 12.3. Platelets 159. Sodium 138. Potassium 3.1. Bicarb 25. BUN 2. Creatinine 0.73. On today's evaluation of 11/26/2023, the patient is being seen for a follow-up. Noted to be slightly confused, nevertheless, there is no focal neurological deficit. Moving all 4 extremities other than limitation. There is increased anxiety and some occasional restlessness and agitation. No respiratory difficulties. No cough or sputum production or chest tightness or wheezing. He has history of alcoholism. The white cell count is at 4.1 with a hemoglobin 12.1 and a platelet count of 170. BUN is at 4 with a creatinine of 0.7 and sodium is at 140. A follow-up chest x-ray was done today and shows no acute abnormalities. There could be some limited atelectatic changes in the left lung base. The patient remains on Remeron and Seroquel at bedtime. The patient is also on Lamictal 50 mg p.o. twice a day. He takes long-term anticoagulation with Eliquis 5 mg p.o. twice a day. 11/27/2023, the patient is running a fever with a Tmax of 103.1. Currently afebrile. Remains confused. At times restless and agitated. Tries to wander and walk around without any purpose. No focal neurological deficits. No headaches. No neck stiffness. White cell count of 4.5 with a hemoglobin of 0.8 and a platelet count of 166. Electrolytes are stable and a potassium level at 3.3 that needs to be replaced with a BUN of 7 and a creatinine of 0.85. A follow-up chest x-ray was done and showed some atelectatic change left lung base. Otherwise, no airspace disease or consolidation. The patient was started empirically on IV antibiotics. Room air pulse ox 97%. The patient is on Seroquel and Remeron. He was receiving Haldol earlier. He is also on Ativan per protocol for alcohol withdrawal. He remains on a combination of Vimpat and Lamictal. Objective - Vital Signs Vital signs: Vital Signs Temp 99.1 F 11/27/23 08:00 Pulse 78 11/27/23 08:00 Resp 18 11/27/23 08:00 BP 126/77 11/27/23 08:00 Pulse Ox 97 11/27/23 08:00 FiO2 100 11/20/23 19:35 Intake & Output 11/26/23 11/27/23 11/27/23 18:59 06:59 18:59 Intake Total 1862 240 Output Total 200 Balance 1862 40 Weight 54.703 kg 57 kg Intake: Oral 1862 240 Output: Urine 200 Other: Voiding Method Toilet Toilet Toilet Urinal Urinal # Voids 3 1 - Exam GENERAL EXAM: Awake, currently cooperative 53-year-old male, sitting up in bed, on room air. No current seizure activity. HEAD: Normocephalic. Left forehead abrasion EYES: Normal reaction of pupils, equal size. NOSE: Clear with pink turbinates. THROAT: No erythema or exudates. Edentulous. NECK: No masses, no JVD. CHEST: No chest wall deformity. LUNGS: Equal air entry with no crackles, wheeze, rhonchi or dullness. No conversational dyspnea. CVS: S1 and S2 normal with no audible murmur, regular rhythm. No extra heart sounds. Tachycardic. ABDOMEN: No hepatosplenomegaly, active bowel sounds, no guarding or rigidity. SPINE: No scoliosis or deformity SKIN: No rashes CENTRAL NERVOUS SYSTEM: No focal deficits, tone is normal in all 4 extremities. EXTREMITIES: There is no peripheral edema, clubbing, or cyanosis. Peripheral pulses are intact. - Labs CBC & Chem 7: 11/27/23 06:16 11/27/23 06:16 Labs: Abnormal Lab Results - Last 24 Hours (Table) 11/27/23 11/27/23 Range/Units 06:16 06:16 RBC 3.56 L (4.30-5.90) m/uL Hgb 11.8 L (13.0-17.5) gm/dL Hct 37.2 L (39.0-53.0) % MCV 104.3 H (80.0-100.0) fL Lymphocytes # 0.7 L (1.0-4.8) k/uL Sodium 135 L (137-145) mmol/L Potassium 3.3 L (3.5-5.1) mmol/L BUN 7 L (9-20) mg/dL Calcium 8.1 L (8.4-10.2) mg/dL Total Protein 5.8 L (6.3-8.2) g/dL Albumin 3.3 L (3.5-5.0) g/dL Assessment and Plan Plan: acute alcohol withdrawal delirium tremens, unsure last known drink and serum EtOH level less than 10 on arrival, patient does have history of alcoholism and has had a recent hospitalization with similar presentation August, which required admission to the intensive care unit, currently the patient is on the medical floor. The patient remains encephalopathic and confused. Sitter at the bedside. No focal neurological deficit. No signs of meningitis. Acute fever, currently under investigation. No leukocytosis. Rule out drug-induced fever. Suspected seizure, with history of seizure disorder, currently on Vimpat Fall with abrasion to left forehead Atrial fibrillation with rapid ventricular response, converted with Cardizem drip, on Eliquis Acute hypoxemic respiratory failure, recovered and on room air, likely secondary to DTs, chest x-ray does not show any focal infiltrates or evidence of pneumonia. No reported aspiration events, chest x-ray within normal limits and the patient is currently on room air oxygen, no indication for an acute pneumonia based on the most send chest x-ray findings. Acute kidney injury, likely secondary to severe dehydration and ATN, recovered, renal function is normal Anion gap metabolic acidosis, recovered Hyperammonemia, recovered History of alcoholism History of CVA/TIA History of hypertension History of hyperlipidemia History of SVT with previous ablation History of syncope History of hypothyroidism History of anxiety and depression Plan: Fever investigation and consult with infectious disease Blood cultures Check procalcitonin level Check CPK to rule out rhabdomyolysis Consider possibility of serotonergic syndrome, no muscle rigidity and currently we are monitoring the fever pattern. Chest x-ray was noted and essentially clear with some limited atelectatic change the left lung base Stable and on room air Continue the current treatment plan Continue Remeron and Seroquel, and consult with psychiatry Continue Vimpat Continue anticoagulation with Eliquis Monitor mental status Will continue to follow
--- NOTE | 2023-11-27 16:37 | P.CN ---
Psychiatric Consult - . Consult date: 11/27/23 Consult:: 11/27/23 16:36 CONSULTATION Reason for consult: Psychiatric evaluation for agitation Identifying Data: The patient is 53 years old, single, white male, who lives in [place], [place] in a house with his parents. Reason for admission: History of present illness: This is a 53-year-old patient, who presented to the ER with concerns of Alcohol withdrawals and questionable seizure. Patient has a past medical history of EtOH abuse along with seizures. Patient noted to have a laceration above left eye. After initial evaluation and work-up the patient was transferred to the medical floor for further management. The patient is undergoing Detox. He was confused, paranoid and agitated. He has been settling down. This is 6th day on CIWAA protocol. He received 6 mg of Ativan in last 24 hrs. Today, he was noted to be slightly confused and suspicious but has not been a management problem. The patient received Ativan at 11 am. He is difficult to arouse. He refused to talked. His parents gave most of the history. As per them, the patient has symptoms of depression and anxiety. He is being managed by his PCP and a counselor. The patient sees his counselor once a month. He has been this counselor for 5 years. He has never seen a psychiatrist in the past. The patient experienced some losses recently, two of his close friends . He was depressed after that but it subsided after a month. The patient was not experiencing any symptoms of depression or anxiety prior to admission. The patient gets his psychiatric medications from his PCP. The patient has no h/o of psychiatric hospitalizations. He has no h/o of SI or HI. He has never had psychiatric out patient treatment. He is currently taking Remeron 15 mg po qhs and Seroquel 50 mg po qhs. History of past psychiatric illness: No other than stated in HPI. No history of suicidal or homicidal ideations or behavior. Past medical history: Angina, CVA/TIA, Hyperlipidemia, Hypertension, Seizure Disorder, Supraventricular Tachycardia (SVT), Syncope, Thyroid Disorder Substance abuse history: Alcohol Dependence Family history of psychiatric disorder: The patients sister suffers from depression. No h/o suicide or homicide in blood relatives. MSE: The patient could not be assessed because he was deeply sedated. Diagnosis: Generalized Anxiety Disorder, Substance induced mood disorder Plan: Medication recommendations: Continue current medications Disposition recommendations: After medical stabilization, the patient to be discharged to out-pt psychiatric treatment under his PCP and Counselor. Greg Suarez MD Psychiatry
--- NOTE | 2023-11-27 18:37 | P.PN ---
Subjective Progress Note Date: 11/27/23 11/27/2023: Patient was seen for a follow-up. Patient is laying comfortably in the bed. Per sitter, patient is very confused. Patient offers no complaints. Denies any headache at this time. 11/26/2023: Patient was seen for a follow-up. Patient initially seen by Dr. Maxwell Hooks. Please refer to his note for details. Patient is a 53-year-old male known to neurology service from multiple admissions for mental confusion and had multiple EEGs which were negative. Dr. Hooks was not sure if it is alcohol/DT related or seizure that has not been picked up. Patient is currently on Vimpat and Dr. Hooks increase the dose of Lamictal from 25 twice daily to 50 mg twice daily. Patient remembers me by my name from previous hospitalization. Patient states that he feels a lot better. Patient is in no distress. Complains of some dizziness. Patient has received morphine earlier today, therefore is slightly confused. However he has developed new-onset temperature of 102.4. He had undergone chest x-ray and UA. Results pending. Per nursing report, is very confused, hallucinating, delirious. Some of the workup during this hospital visit consisted of: Has been severely tachycardic on presentation initially in the 275 then in the 150s to 160s MCV is 110 and repeat is 107 Calcium is 5.8 Creatinine is 1.28 and repeat is normal Initial serum glucose is 158 Calcium is normal Magnesium is 2.3 AST ALT is within normal limits Ammonia is 78 and repeat <9 Urine drug screen is not detected and the urine alcohol is less than 10. CT of the head is reported as no CT evidence of acute intracranial abnormality. Atrophy and chronic microvascular ischemic white matter changes. Reviewed the CT and I agree with the report. EKG is reported as atrial flutter/tachycardia with RVR. Routine EEG: Is abnormal. The background slowing is suggestive of moderate encephalopathy. There is no focal slowing, epileptiform discharges or seizure on the EEG. 2D echo: Presevered LV function with EF 50-55%. Dilated left atrium. Evidence of prior inferior wall CA. Objective - Vital Signs Vital signs: Vital Signs Temp 100.2 F H 11/27/23 16:10 Pulse 91 11/27/23 15:44 Resp 20 11/27/23 15:44 BP 126/76 11/27/23 15:44 Pulse Ox 97 11/27/23 15:44 FiO2 100 11/20/23 19:35 Intake & Output 11/26/23 11/27/23 11/27/23 18:59 06:59 18:59 Intake Total 1862 480 Output Total 200 Balance 1862 280 Weight 54.703 kg 57 kg Intake: Oral 1862 480 Output: Urine 200 Other: Voiding Method Toilet Toilet Toilet Urinal Urinal # Voids 3 1 - Exam Patient is alert and awake, appears slightly spacey. Patient states it is the month of November and the year is 2023. He knows that he is in [place] in [place]. He thinks he is at a residential home. Patient's neck is supple. Speech and language functions are normal. No aphasia. On cranial examination pupils are equal, round and reacting. Visual french are full, with no neglect. Face is symmetric and tongue protrudes the midline. On muscle strength testing, the muscle strength is normal in the lower extremities in the hip flexion and ankle dorsiflexion. In the upper limbs, is mostly 5-with raw cheese worker about 5 bilaterally. No ataxia for [id number] testing. Patient has peripheral edema. - Labs CBC & Chem 7: 11/27/23 06:16 11/27/23 06:16 Labs: Abnormal Lab Results - Last 24 Hours (Table) 11/27/23 11/27/23 Range/Units 06:16 06:16 RBC 3.56 L (4.30-5.90) m/uL Hgb 11.8 L (13.0-17.5) gm/dL Hct 37.2 L (39.0-53.0) % MCV 104.3 H (80.0-100.0) fL Lymphocytes # 0.7 L (1.0-4.8) k/uL Sodium 135 L (137-145) mmol/L Potassium 3.3 L (3.5-5.1) mmol/L BUN 7 L (9-20) mg/dL Calcium 8.1 L (8.4-10.2) mg/dL Total Protein 5.8 L (6.3-8.2) g/dL Albumin 3.3 L (3.5-5.0) g/dL Microbiology - Last 24 Hours (Table) 11/26/23 17:20 Blood Culture Gram Stain - Preliminary Blood Blood Culture - Preliminary Molecular ID Assessment and Plan Assessment: This is a 53-year-old gentleman presents emergency department for suspected se izure, and the family felt he was having jerking movement tends to fall as a result of the seizure. Patient has previous history of alcohol withdrawal/delirium tremens. Patient has history of seizure and had multiple EEGs in our facility as well as a prolonged EEG which were negative for any seizures or discharges. He was last seen by our neurology athletic team physician on 09/17/2023 and was felt he has delirium due to hypoglycemia. Currently his alcohol level is less than 10 Encephalopathy, probably toxic metabolic New-onset fever, rule out pneumonia versus UTI. Patient denies headache. His neck is supple with no rigidity. Intracranial infection appears less likely. Elevated ammonia level History of seizure and patient had multiple EEGs as well as prolonged EEG in our facility which were negative for any seizure or discharges Microcytic anemia is felt likely due to alcoholism History of cardiomyopathy status post ablation Hypothyroidism History of remote right basal ganglia stroke History of psychosis requiring admission to the mental health Anxiety depression Alcohol use Plan: Patient is resumed on his home medication of Vimpat [address] Hooks has increased his home dose of Lamictal 25 mg twice daily to 50mg bid. Seizure precaution and pad. Patient has developed new onset fever. Primary care concerned about intracranial infection. Patient denies any headache. His neck is supple. Suspicion for intracranial infection is low. UA is negative. Chest x-ray revealed possible acute infiltrate and small effusion in the left lung base. Short-term follow-up suggested. Findings could indicate developing pneumonia. Patient is currently on Eliquis. It has to be stopped for at least 2 days before lumbar puncture can be performed. Patient may need bridging with Lo venox. Will discuss with the primary physician. Patient is on CIWA protocol. Cardiology also on board. Continue thiamine. Per [place] DM[place] because of seizure, avoid driving for 6 months until seizure fee, avoid heights, avoid swimming unassisted or using heavy machinery. Will defer the rest of the medical management to primary and other specialists Upon discharge, recommend the patient to follow-up with his neurologist (Dr. Mcadams) as outpatient with in 1-2 weeks
[2023-11-28 09:08] LABS: Basophils % (A) 0 %; Eosinophils # (A) 0.1 k/uL (0-0.7); Eosinophils % (A) 1 %; HCT 34.6 % (39.0-53.0); HGB 11.1 gm/dL (13.0-17.5); Lymphocytes # (A) 0.9 k/uL (1.0-4.8); Lymphocytes % (A) 16 %; MCH 33.3 pg (25.0-35.0); MCV 104.2 fL (80.0-100.0); Macrocytosis Slight; Mean Platelet Volume 8.2; Monocytes # (A) 0.6 k/uL (0-1.0); Monocytes % (A) 13 %; Neutrophils # (A) 3.5 k/uL (1.3-7.7); Neutrophils % (A) 67 %; Platelet Count 161 k/uL (150-450); RBC 3.32 m/uL (4.30-5.90); RDW 14.5 % (11.5-15.5); WBC 5.2 k/uL (3.8-10.6)
[2023-11-28 09:09] LABS: ALT 13 U/L (4-49); AST 39 U/L (17-59); African American GFR (CKD) >90 (>60 ml/min/1.73 sqM); Alkaline Phosphatase 48 U/L (38-126); Anion Gap 3 mmol/L; Blood Urea Nitrogen 9 mg/dL (9-20); Carbon Dioxide 26 mmol/L (22-30); Chloride 106 mmol/L (98-107); Glucose 82 mg/dL (74-99); Non-African American GFR(CKD) >90 (>60 ml/min/1.73 sqM); Potassium 3.3 mmol/L (3.5-5.1); Sodium 135 mmol/L (137-145); Total Bilirubin 0.5 mg/dL (0.2-1.3); Total Protein 5.3 g/dL (6.3-8.2)
[2023-11-28] MEDS ORDERED: VANCOMYCIN IV PER PHARMACY 1 EACH MISC MISCELLANE PRN (09:31)
[2023-11-28] MEDS: VANCOMYCIN 1,000 MG in SODIUM CHLORIDE 0.9% 250 ML IVPB SCH (10:18)
[2023-11-28] MEDS: POTASSIUM CHLORIDE ER 20 MEQ TAB.ER PO SCH (10:19)
--- NOTE | 2023-11-28 11:19 | P.PN ---
Subjective Progress Note Date: 11/28/23 This is a 53-year-old patient well-known to my services presented to the ER with concerns of Alcohol withdrawal's and questionable seizure. Patient has a past medical history of EtOH abuse along with seizures. Patient noted to have a laceration above left eye. Additional medical history includes CVA, h yperlipidemia, hypertension, SVT, syncope and cardiac ablation.CT of head completed showing no evidence of acute intracranial abnormality atrophy and chronic microvascular ischemia white matter changes.Chest x-ray completed showing no acute cardiopulmonary findings.EKG completed showing sinus tachyc ardia past with atrial flutter heart rate 147.UA negative. Drug screen negative. Serum alcohol less than 10 at this time patient will be admitted. Patient started on alcohol child protocol. Continue seizure precautions. Neurology, cardiology and critical care services have been consulted. At this time patient is sitting in bed sitter at bedside. Patient having some tremors On 11/22/2023 patient was seen and examined in the ICU, he is alert and responsive in no apparent distress, he denies any complaints at this time there is no fever or chills no headache or dizziness no chest pain no shortness of breath no cough no nausea or vomiting no abdominal pain no diarrhea and no urinary symptoms. Echocardiogram revealed preserved LV function with an ejection fraction of 50 to 55%, with evidence of prior inferior wall myocardial infarction. Patient was seen by neurology and EEG was performed, he is improving gradually. On 11/23/2023 patient was seen and examined on the medical floor he is alert and oriented x 3 in no apparent distress there is no fever or chills no headache or dizziness no chest pain no shortness of breath no cough no nausea or vomiting no abdominal pain no diarrhea no urinary symptoms, he is still having episodes of confusion and agitation, he has 24-hour sitter, he is receiving IV Ativan as needed, and received a dose of Haldol last night, neurology are following. On 11/24/2023 patient was seen and examined on the medical floor he is alert and oriented x 3 in no distress, he had episodes of agitation last night, requiring the use of Ativan and Haldol, at this time he has a sitter, he seems to be calm, there is no fever or chills no headache or dizziness no chest pain no shortness of breath no cough no nausea or vomiting no abdominal pain no diarrhea no u rinary symptoms, neurology input reviewed, I will add a psychiatry consult, I will continue to follow closely. On 11/25/2023 patient was seen and examined on the medical floor he is alert and oriented x 3 in no apparent distress there is no fever or chills no headache or dizziness no chest pain no shortness of breath no cough no nausea or vomiting no abdominal pain no diarrhea and no urinary symptoms, patient is still having occasional episodes of agitation, psychiatry consult requested, will continue to follow. On 11/26/2023 patient was seen and examined on the medical floor he is alert and oriented x 3 in no apparent distress, he had an episode of severe anxiety with mild agitation this morning otherwise he denies any complaints there is no fever or chills no headache or dizziness no chest pain or shortness of breath no cough no nausea or vomiting no abdominal pain no diarrhea no urinary symptoms. At this time we are awaiting consult and recommendation from psychiatry. On 11/27/2023 patient is alert and oriented 3. Patient had elevated temperature 103. UA negative. Chest x-ray completed showing possible acute infiltrate and small effusion left lung base. Pulmonary services are following. Will reconsult neurology services to further assess she needs lumbar puncture. Patient was started on antibiotics blood and sputum cultures ordered.Patient denies any chest pain or shortness breath. Patient denies nausea and diarrhea. Patient denies any urinary burning or frequency On 11/28/2023 patient's alert and oriented 3. Less agitated than yesterday. Blood culture positive. Vancomycin added. At this time patient denies chest pain or shortness of breath. Patient denies nausea vomiting or diarrhea. Patient denies any urinary burning or frequency Objective - Vital Signs Vital signs: Vital Signs Temp 98 F 11/28/23 08:00 Pulse 79 11/28/23 08:00 Resp 20 11/28/23 08:00 BP 113/76 11/28/23 08:00 Pulse Ox 100 11/28/23 08:00 FiO2 100 11/20/23 19:35 Intake & Output 11/27/23 11/28/23 11/28/23 18:59 06:59 18:59 Intake Total 480 720 Output Total 200 Balance 280 720 Intake: Oral 480 720 Output: Urine 200 Other: Voiding Method Toilet Toilet Toilet # Voids 1 1 # Bowel Movements 1 - Exam In general patient is alert and oriented x 3 in no distress HEENT head normocephalic and atraumatic Neck is supple no JVD no goiter no lymphadenopathy no carotid bruit Chest examination is clear to auscultation no crackles no wheezing Cardiac exam reveals regular heart sounds S1 and S2 no gallops no murmurs Abdomen is soft nontender no organomegaly with normal bowel sounds Extremity exam reveals no edema no cyanosis or clubbing Neurological examination reveals no gross focal deficits - Labs CBC & Chem 7: 11/28/23 07:28 11/28/23 07:28 Labs: Abnormal Lab Results - Last 24 Hours (Table) 11/27/23 11/27/23 11/28/23 Range/Units 06:16 06:16 07:28 RBC 3.32 L (4.30-5.90) m/uL Hgb 11.1 L (13.0-17.5) gm/dL Hct 34.6 L (39.0-53.0) % MCV 104.2 H (80.0-100.0) fL Lymphocytes # 0.9 L (1.0-4.8) k/uL Sodium (137-145) mmol/L Potassium (3.5-5.1) mmol/L Calcium (8.4-10.2) mg/dL Creatine Kinase 397 H (35-257) U/L Total Protein (6.3-8.2) g/dL Albumin (3.5-5.0) g/dL Procalcitonin 0.21 H (0.02-0.09) ng/mL 11/28/23 Range/Units 07:28 RBC (4.30-5.90) m/uL Hgb (13.0-17.5) gm/dL Hct (39.0-53.0) % MCV (80.0-100.0) fL Lymphocytes # (1.0-4.8) k/uL Sodium 135 L (137-145) mmol/L Potassium 3.3 L (3.5-5.1) mmol/L Calcium 8.0 L (8.4-10.2) mg/dL Creatine Kinase (35-257) U/L Total Protein 5.3 L (6.3-8.2) g/dL Albumin 3.0 L (3.5-5.0) g/dL Procalcitonin (0.02-0.09) ng/mL Microbiology - Last 24 Hours (Table) 11/26/23 17:20 Blood Culture Gram Stain - Preliminary Blood Blood Culture - Preliminary Presumptive Staph aureus Molecular ID Assessment and Plan Assessment: 1. Alcohol withdrawals. Patient maintained on alcohol withdrawal protocol 2. Possible seizure 3. Fall with abrasion to left forehead 4. SVT. Cardiology services have been consulted 5. History of acute kidney injury 6. History of alcohol abuse 7. History of CVA 8. History of essential hypertension 9. History of hyperlipidemia 10. History of SVT with previous ablation 11. History of syncope 12. History of hypothyroidism 13. History of anxiety and depression 14. febrile possible pneumonia. Patient started on IV antibiotics 15. Positive blood culture DVT prophylaxis heparin. GI prophylaxis Protonix Patient to be admitted to the intensive care unit Continue seizure precautions Continue [facility] Neurology, cardiology and critical care service is consulted Repeat labs ordered
--- NOTE | 2023-11-28 14:57 | P.PN ---
Subjective Progress Note Date: 11/28/23 Patient is a 53-year-old white male with past medical history significant for alcoholism, seizure disorder, CVA/TIA, hypertension, hyperlipidemia, SVT, hypothyroidism, among other things. Patient was brought in by EMS to the emergency department last night. He was witnessed to have a fall and suspected seizure-like activity by his mother at home. He has an abrasion on his left forehead. He is also suspected of having alcohol withdrawal. He had a recent hospitalization back in August, for similar presentation. Brain CT done on arrival did not show any acute intracranial process. He is currently in the emergency department, room 1. He is altered. He is restless and wheeling in bed. He has generalized tremors. Diaphoretic. Tachycardic on bedside monitor. No further seizure activity noted by nurses. He does have alcoholism, unknown when last drink. Serum alcohol level was less than 10 on arrival. He is on the CIWA protocol. Most recent CIWA score was 21. He has received a total of 6 mg of Ativan so far. On his previous admission, he required Precedex infusion and admission to the intensive care unit at that time. CBC unremarkable. Initial BMP: Sodium 144, potassium 5.8, chloride 109, serum CO2 14, anion gap 21, BUN 16, creatinine 1.28, glucose 158. Mag 2.3. Saline infusing at 130 MLS per hour. LFTs not elevated. Total bilirubin 0.7. Ammonia level 78. Urinalysis not remarkable for UTI. Afebrile. Urine toxicology screen negative. Patient's suspected alcohol withdrawal will be treated in the intensive care unit. The patient is seen today November 22, 2023 in follow-up in the intensive care unit. He is currently sitting up in bed. Awake and alert in no acute distress. Maintaining O2 saturations in the 90s on room air. He has normal saline at 130 MLS per hour. His potassium is being replaced. He did go into atrial fibrillation with rapid ventricular response last night and was on a Cardizem drip and a heparin drip. He had been seen by cardiology today who discontinued the drips and initiated Eliquis. He is currently in sinus rhythm. He had been requiring Ativan hourly most of yesterday but in the evening he was down to about every 3 hours. He is cooperative currently. White count 3.8. Hemoglobin 10.2. Platelets 86,000. Sodium 140. Potassium 3.2. Bicarb 22. BUN 6. Creatinine 0.63. The patient is seen today November 23, 2023 in follow-up on the selective care unit. He is awake and alert in no acute distress. He is maintaining O2 saturations in the 90s on room air. He has normal staying at 130 MLS per hour. He has a safety and security officer at the bedside. He did require a dose of Haldol at approximately midnight. He remains on the CIWA protocol. No seizures noted. Remains on seizure precautions. Remains on Vimpat. Echocardiogram revealed preserved left ventricular systolic function. He is currently in a sinus rhythm. He is an ticoagulated with Eliquis. The patient is seen today November 24, 2023 in follow-up on the selective care unit. He is currently sitting up in bed. Awake and alert in no acute distress. He is maintaining good O2 saturations in the 90s on room air. No IV fluids. No recent seizure activity. Remains in seizure precautions. Remains on the CIWA protocol. Currently in sinus rhythm. Anticoagulated with Eliquis. Blood cultures revealed no growth. White count 5.3. Hemoglobin 11.7. Sodium 147. Potassium 3.3. Sodium 138. Bicarb 22. BUN 3. Creatinine 0.68. Glucose 85. The patient is seen today November 25, 2023 in follow-up on the selective care unit. He is awake and alert in no acute distress. He is resting in bed. No seizure activity. He did require additional Ativan for restlessness last evening. Today he is more cooperative. He was up in the shower with assistance. sort worker remains at the bedside. He remains anticoagulated with Eliquis. Blood cultures revealed no growth. White count 3.6. Hemoglobin 12.3. Platelets 159. Sodium 138. Potassium 3.1. Bicarb 25. BUN 2. Creatinine 0.73. On today's evaluation of 11/26/2023, the patient is being seen for a follow-up. Noted to be slightly confused, nevertheless, there is no focal neurological deficit. Moving all 4 extremities other than limitation. There is increased anxiety and some occasional restlessness and agitation. No respiratory difficulties. No cough or sputum production or chest tightness or wheezing. He has history of alcoholism. The white cell count is at 4.1 with a hemoglobin 12.1 and a platelet count of 170. BUN is at 4 with a creatinine of 0.7 and sodium is at 140. A follow-up chest x-ray was done today and shows no acute abnormalities. There could be some limited atelectatic changes in the left lung base. The patient remains on Remeron and Seroquel at bedtime. The patient is also on Lamictal 50 mg p.o. twice a day. He takes long-term anticoagulation with Eliquis 5 mg p.o. twice a day. 11/27/2023, the patient is running a fever with a Tmax of 103.1. Currently afebrile. Remains confused. At times restless and agitated. Tries to wander and walk around without any purpose. No focal neurological deficits. No headaches. No neck stiffness. White cell count of 4.5 with a hemoglobin of 0.8 and a platelet count of 166. Electrolytes are stable and a potassium level at 3.3 that needs to be replaced with a BUN of 7 and a creatinine of 0.85. A follow-up chest x-ray was done and showed some atelectatic change left lung base. Otherwise, no airspace disease or consolidation. The patient was started empirically on IV antibiotics. Room air pulse ox 97%. The patient is on Seroquel and Remeron. He was receiving Haldol earlier. He is also on Ativan per protocol for alcohol withdrawal. He remains on a combination of Vimpat and Lamictal. On today's evaluation of 11/28/2023, the patient is afebrile. Nevertheless he was having fever throughout the day yesterday. Blood culture came back positive for Staph aureus and the patient is currently on vancomycin. Hemodynamically stable. Exact source of this infection is not clear to me at this point in time. The patient is less agitated on today's evaluation. No chest pain. No shortness of breath. No nausea vomiting or diarrhea or abdominal pain. No frequency or urgency. No open wounds or ulcers. White cell count of 5.0 with a hemoglobin of 11.1 and a BUN is 9 with a creatinine 0.7 and sodium is at 135 with a potassium level of 3.3. UA is negative. The viral screen is also negative. Objective - Vital Signs Vital signs: Vital Signs Temp 98 F 11/28/23 08:00 Pulse 79 11/28/23 08:00 Resp 20 11/28/23 08:00 BP 113/76 11/28/23 08:00 Pulse Ox 100 11/28/23 08:00 FiO2 100 11/20/23 19:35 Intake & Output 11/27/23 11/28/23 11/28/23 18:59 06:59 18:59 Intake Total 480 720 Output Total 200 Balance 280 720 Intake: Oral 480 720 Output: Urine 200 Other: Voiding Method Toilet Toilet Toilet # Voids 1 1 # Bowel Movements 1 - Exam GENERAL EXAM: Awake, currently cooperative 53-year-old male, sitting up in bed, on room air. No current seizure activity. HEAD: Normocephalic. Left forehead abrasion EYES: Normal reaction of pupils, equal size. NOSE: Clear with pink turbinates. THROAT: No erythema or exudates. Edentulous. NECK: No masses, no JVD. CHEST: No chest wall deformity. LUNGS: Equal air entry with no crackles, wheeze, rhonchi or dullness. No conversational dyspnea. CVS: S1 and S2 normal with no audible murmur, regular rhythm. No extra heart sounds. Tachycardic. ABDOMEN: No hepatosplenomegaly, active bowel sounds, no guarding or rigidity. SPINE: No scoliosis or deformity SKIN: No rashes CENTRAL NERVOUS SYSTEM: No focal deficits, tone is normal in all 4 extremities. EXTREMITIES: There is no peripheral edema, clubbing, or cyanosis. Peripheral pulses are intact. - Labs CBC & Chem 7: 11/28/23 07:28 11/28/23 07:28 Labs: Abnormal Lab Results - Last 24 Hours (Table) 11/27/23 11/27/23 11/28/23 Range/Units 06:16 06:16 07:28 RBC 3.32 L (4.30-5.90) m/uL Hgb 11.1 L (13.0-17.5) gm/dL Hct 34.6 L (39.0-53.0) % MCV 104.2 H (80.0-100.0) fL Lymphocytes # 0.9 L (1.0-4.8) k/uL Sodium (137-145) mmol/L Potassium (3.5-5.1) mmol/L Calcium (8.4-10.2) mg/dL Creatine Kinase 397 H (35-257) U/L Total Protein (6.3-8.2) g/dL Albumin (3.5-5.0) g/dL Procalcitonin 0.21 H (0.02-0.09) ng/mL 11/28/23 Range/Units 07:28 RBC (4.30-5.90) m/uL Hgb (13.0-17.5) gm/dL Hct (39.0-53.0) % MCV (80.0-100.0) fL Lymphocytes # (1.0-4.8) k/uL Sodium 135 L (137-145) mmol/L Potassium 3.3 L (3.5-5.1) mmol/L Calcium 8.0 L (8.4-10.2) mg/dL Creatine Kinase (35-257) U/L Total Protein 5.3 L (6.3-8.2) g/dL Albumin 3.0 L (3.5-5.0) g/dL Procalcitonin (0.02-0.09) ng/mL Microbiology - Last 24 Hours (Table) 11/26/23 17:20 Blood Culture Gram Stain - Preliminary Blood Blood Culture - Preliminary Presumptive Staph aureus Molecular ID Assessment and Plan Plan: Fever with Staph aureus sepsis, exact source is unclear the patient is currently on vancomycin. Currently afebrile and hemodynamically stable. acute alcohol withdrawal delirium tremens, unsure last known drink and serum EtOH level less than 10 on arrival, patient does have history of alcoholism and has had a recent hospitalization with similar presentation August, which required admission to the intensive care unit, currently the patient is on the medical floor. The patient remains encephalopathic and confused. Sitter at the bedside. No focal neurological deficit. No signs of meningitis. Acute fever, currently afebrile Suspected seizure, with history of seizure disorder, currently on Vimpat Fall with abrasion to left forehead Atrial fibrillation with rapid ventricular response, converted with Cardizem drip, on Eliquis Acute hypoxemic respiratory failure, recovered and on room air, likely secondary to DTs, chest x-ray does not show any focal infiltrates or evidence of pneumonia. No reported aspiration events, chest x-ray within normal limits and the patient is currently on room air oxygen, no indication for an acute pneumonia based on the most send chest x-ray findings. Acute kidney injury, likely secondary to severe dehydration and ATN, recovered, renal function is normal Anion gap metabolic acidosis, recovered Hyperammonemia, recovered History of alcoholism History of CVA/TIA History of hypertension History of hyperlipidemia History of SVT with previous ablation History of syncope History of hypothyroidism History of anxiety and depression Plan: Continue IV vancomycin Blood cultures were sent and final culture sensitivities are still pending Clinically stable and hemodynamically stable Chest x-ray was noted and essentially clear with some limited atelectatic change the left lung base Stable and on room air Continue the current treatment plan Continue Remeron and Seroquel, and consult with psychiatry Continue Vimpat Continue anticoagulation with Eliquis Monitor mental status ID consult Psychiatry consult Will continue to follow
--- NOTE | 2023-11-29 09:42 | P.PN ---
Subjective Progress Note Date: 11/28/23 11/28/2023: Patient was seen for a follow-up. Patient is sitting comfortably in the recliner. He appears much more alert and awake. Mentation seems better. He himself feels much better. Denies any headache. Patient is asking when he can go home. 11/27/2023: Patient was seen for a follow-up. Patient is laying comfortably in the bed. Per sitter, patient is very confused. Patient offers no complaints. Denies any headache at this time. 11/26/2023: Patient was seen for a follow-up. Patient initially seen by Dr. Maxwell Hooks. Please refer to his note for details. Patient is a 53-year-old male known to neurology service from multiple admissions for mental confusion and had multiple EEGs which were negative. Dr. Hooks was not sure if it is alcohol/DT related or seizure that has not been picked up. Patient is currently on Vimpat and Dr. Hooks increase the dose of Lamictal from 25 twice daily to 50 mg twice daily. Patient remembers me by my name from previous hospitalization. Patient states that he feels a lot better. Patient is in no distress. Complains of some dizziness. Patient has received morphine earlier today, therefore is slightly confused. However he has developed new-onset temperature of 102.4. He had undergone chest x-ray and UA. Results pending. Per nursing report, is very confused, hallucinating, delirious. Some of the workup during this hospital visit consisted of: Has been severely tachycardic on presentation initially in the 275 then in the 150s to 160s MCV is 110 and repeat is 107 Calcium is 5.8 Creatinine is 1.28 and repeat is normal Initial serum glucose is 158 Calcium is normal Magnesium is 2.3 AST ALT is within normal limits Ammonia is 78 and repeat <9 Urine drug screen is not detected and the urine alcohol is less than 10. CT of the head is reported as no CT evidence of acute intracranial abnormality. Atrophy and chronic microvascular ischemic white matter changes. Reviewed the CT and I agree with the report. EKG is reported as atrial flutter/tachycardia with RVR. Routine EEG: Is abnormal. The background slowing is suggestive of moderate encephalopathy. There is no focal slowing, epileptiform discharges or seizure on the EEG. 2D echo: Presevered LV function with EF 50-55%. Dilated left atrium. Evidence of prior inferior wall [place]. Objective - Vital Signs Vital signs: Vital Signs Temp 98.8 F 11/28/23 15:14 Pulse 77 11/28/23 15:14 Resp 17 11/28/23 15:14 BP 96/57 11/28/23 15:14 Pulse Ox 97 11/28/23 15:14 FiO2 100 11/20/23 19:35 Intake & Output 11/27/23 11/28/23 11/28/23 18:59 06:59 18:59 Intake Total 480 1200 Output Total 200 Balance 280 1200 Intake: Oral 480 1200 Output: Urine 200 Other: Voiding Method Toilet Toilet Toilet # Voids 1 1 # Bowel Movements 1 - Exam Patient is fully alert and awake, with normal sensorium. His mentation has also improved as compared to yesterday. Patient is oriented 4, knows it is November 2023 and that is in [facility] in [place] and name of the current president. Patient's neck is supple. Speech and language functions are normal. No aphasia. On cranial examination pupils are equal, round and reacting. Visual french are full, with no neglect. Face is symmetric and tongue protrudes the midline. On muscle strength testing, the muscle strength is normal in the lower extremities in the hip flexion and ankle dorsiflexion. In the upper limbs, is mostly 5-with clothing sorter about 5 bilaterally. No ataxia for [id number] testing. Patient has peripheral edema. - Labs CBC & Chem 7: 11/28/23 07:28 11/28/23 07:28 Labs: Abnormal Lab Results - Last 24 Hours (Table) 11/27/23 11/27/23 11/28/23 Range/Units 06:16 06:16 07:28 RBC 3.32 L (4.30-5.90) m/uL Hgb 11.1 L (13.0-17.5) gm/dL Hct 34.6 L (39.0-53.0) % MCV 104.2 H (80.0-100.0) fL Lymphocytes # 0.9 L (1.0-4.8) k/uL Sodium (137-145) mmol/L Potassium (3.5-5.1) mmol/L Calcium (8.4-10.2) mg/dL Creatine Kinase 397 H (35-257) U/L Total Protein (6.3-8.2) g/dL Albumin (3.5-5.0) g/dL Procalcitonin 0.21 H (0.02-0.09) ng/mL 11/28/23 Range/Units 07:28 RBC (4.30-5.90) m/uL Hgb (13.0-17.5) gm/dL Hct (39.0-53.0) % MCV (80.0-100.0) fL Lymphocytes # (1.0-4.8) k/uL Sodium 135 L (137-145) mmol/L Potassium 3.3 L (3.5-5.1) mmol/L Calcium 8.0 L (8.4-10.2) mg/dL Creatine Kinase (35-257) U/L Total Protein 5.3 L (6.3-8.2) g/dL Albumin 3.0 L (3.5-5.0) g/dL Procalcitonin (0.02-0.09) ng/mL Microbiology - Last 24 Hours (Table) 11/26/23 17:20 Blood Culture Gram Stain - Preliminary Blood Blood Culture - Preliminary Presumptive Staph aureus Molecular ID Assessment and Plan Assessment: This is a 53-year-old gentleman presents emergency department for suspected seizure, and the family felt he was having jerking movement tends to fall as a r esult of the seizure. Patient has previous history of alcohol withdrawal/delirium tremens. Patient has history of seizure and had multiple EEGs in our facility as well as a prolonged EEG which were negative for any seizures or discharges. He was last seen by our neurology shipping team leader on 09/17/2023 and was felt he has delirium due to hypoglycemia. Currently his alcohol level is less than 10 Encephalopathy, probably toxic metabolic, improved New-onset fever, probably due to pneumonia. Patient has positive blood culture with gram-positive cocci in clusters, suspecting staph aureus. No evidence of meningitis/encephalitis. Elevated ammonia level 78 on admission, but now <9 History of seizure and patient had multiple EEGs as well as prolonged EEG in our facility which were negative for any seizure or discharges Microcytic anemia is felt likely due to alcoholism History of cardiomyopathy status post ablation Hypothyroidism History of remote right basal ganglia stroke History of psychosis requiring admission to the [facility] Anxiety depression Alcohol use Plan: Patient has positive blood culture, growing gram-positive cocci in clusters. Staph aureus suspected. Vancomycin and also started. No clinical evidence of meningitis/encephalitis. No indication for lumbar puncture. Patient is resumed on his home medication of Vimpat [address] Hooks has increased his home dose of Lamictal 25 mg twice daily to 50mg bid. Seizure precaution and pad. Patient is on CIWA protocol. Cardiology also on board. Continue thiamine. Per [place] DMV because of seizure, avoid driving for 6 months until seizure fee, avoid heights, avoid swimming unassisted or using heavy machinery. Will defer the rest of the medical management to primary and other specialists Upon discharge, recommend the patient to follow-up with his neurologist (Dr. Mcadams) as outpatient with in 1-2 weeks
[2023-11-29 11:04] LABS: Basophils % (A) 1 %; Eosinophils # (A) 0.1 k/uL (0-0.7); Eosinophils % (A) 2 %; HGB 10.9 gm/dL (13.0-17.5); Lymphocytes # (A) 0.9 k/uL (1.0-4.8); Lymphocytes % (A) 17 %; MCH 33.8 pg (25.0-35.0); MCHC 32.1 g/dL (31.0-37.0); MCV 105.4 fL (80.0-100.0); Macrocytosis Moderate; Mean Platelet Volume 8.1; Monocytes # (A) 0.3 k/uL (0-1.0); Monocytes % (A) 7 %; Neutrophils # (A) 3.5 k/uL (1.3-7.7); Neutrophils % (A) 70 %; Platelet Count 173 k/uL (150-450); RBC 3.23 m/uL (4.30-5.90); RDW 14.6 % (11.5-15.5)
[2023-11-29 11:35] LABS: ALT 16 U/L (4-49); AST 37 U/L (17-59); African American GFR (CKD) >90 (>60 ml/min/1.73 sqM); Albumin 3.1 g/dL (3.5-5.0); Alkaline Phosphatase 59 U/L (38-126); Anion Gap 5 mmol/L; Blood Urea Nitrogen 10 mg/dL (9-20); Calcium 8.2 mg/dL (8.4-10.2); Carbon Dioxide 24 mmol/L (22-30); Chloride 109 mmol/L (98-107); Glucose 97 mg/dL (74-99); Non-African American GFR(CKD) >90 (>60 ml/min/1.73 sqM); Potassium 3.7 mmol/L (3.5-5.1); Sodium 138 mmol/L (137-145); Total Bilirubin 0.4 mg/dL (0.2-1.3); Total Protein 5.5 g/dL (6.3-8.2)
--- NOTE | 2023-11-29 17:09 | P.PN ---
Subjective Progress Note Date: 11/29/23 This is a 53-year-old patient well-known to my services presented to the ER with concerns of Alcohol withdrawal's and questionable seizure. Patient has a past medical history of EtOH abuse along with seizures. Patient noted to have a laceration above left eye. Additional medical history includes CVA, h yperlipidemia, hypertension, SVT, syncope and cardiac ablation.CT of head completed showing no evidence of acute intracranial abnormality atrophy and chronic microvascular ischemia white matter changes.Chest x-ray completed showing no acute cardiopulmonary findings.EKG completed showing sinus tachyc ardia past with atrial flutter heart rate 147.UA negative. Drug screen negative. Serum alcohol less than 10 at this time patient will be admitted. Patient started on alcohol child protocol. Continue seizure precautions. Neurology, cardiology and critical care services have been consulted. At this time patient is sitting in bed sitter at bedside. Patient having some tremors On 11/22/2023 patient was seen and examined in the ICU, he is alert and responsive in no apparent distress, he denies any complaints at this time there is no fever or chills no headache or dizziness no chest pain no shortness of breath no cough no nausea or vomiting no abdominal pain no diarrhea and no urinary symptoms. Echocardiogram revealed preserved LV function with an ejection fraction of 50 to 55%, with evidence of prior inferior wall myocardial infarction. Patient was seen by neurology and EEG was performed, he is improving gradually. On 11/23/2023 patient was seen and examined on the medical floor he is alert and oriented x 3 in no apparent distress there is no fever or chills no headache or dizziness no chest pain no shortness of breath no cough no nausea or vomiting no abdominal pain no diarrhea no urinary symptoms, he is still having episodes of confusion and agitation, he has 24-hour sitter, he is receiving IV Ativan as needed, and received a dose of Haldol last night, neurology are following. On 11/24/2023 patient was seen and examined on the medical floor he is alert and oriented x 3 in no distress, he had episodes of agitation last night, requiring the use of Ativan and Haldol, at this time he has a sitter, he seems to be calm, there is no fever or chills no headache or dizziness no chest pain no shortness of breath no cough no nausea or vomiting no abdominal pain no diarrhea no u rinary symptoms, neurology input reviewed, I will add a psychiatry consult, I will continue to follow closely. On 11/25/2023 patient was seen and examined on the medical floor he is alert and oriented x 3 in no apparent distress there is no fever or chills no headache or dizziness no chest pain no shortness of breath no cough no nausea or vomiting no abdominal pain no diarrhea and no urinary symptoms, patient is still having occasional episodes of agitation, psychiatry consult requested, will continue to follow. On 11/26/2023 patient was seen and examined on the medical floor he is alert and oriented x 3 in no apparent distress, he had an episode of severe anxiety with mild agitation this morning otherwise he denies any complaints there is no fever or chills no headache or dizziness no chest pain or shortness of breath no cough no nausea or vomiting no abdominal pain no diarrhea no urinary symptoms. At this time we are awaiting consult and recommendation from psychiatry. On 11/27/2023 patient is alert and oriented 3. Patient had elevated temperature 103. UA negative. Chest x-ray completed showing possible acute infiltrate and small effusion left lung base. Pulmonary services are following. Will reconsult neurology services to further assess she needs lumbar puncture. Patient was started on antibiotics blood and sputum cultures ordered.Patient denies any chest pain or shortness breath. Patient denies nausea and diarrhea. Patient denies any urinary burning or frequency On 11/28/2023 patient's alert and oriented 3. Less agitated than yesterday. Blood culture positive. Vancomycin added. At this time patient denies chest pain or shortness of breath. Patient denies nausea vomiting or diarrhea. Patient denies any urinary burning or frequency. On 11/29/2023 patient was seen and examined on the medical floor he is alert and oriented x 3 in no apparent distress there is no fever or chills no headache or dizziness no chest pain no shortness of breath no cough no nausea or vomiting no abdominal pain no diarrhea and no urinary symptoms, he remains on IV antibiotics including IV vancomycin, for positive blood culture for Staphylococcus aureus, will continue to follow closely Objective - Vital Signs Vital signs: Vital Signs Temp 98.7 F 11/28/23 20:00 Pulse 71 11/29/23 04:00 Resp 18 11/29/23 04:00 BP 128/76 11/29/23 04:00 Pulse Ox 99 11/29/23 04:00 FiO2 100 06/04/24 19:35 Intake & Output 11/28/23 11/29/23 11/29/23 18:59 06:59 18:59 Intake Total 1200 720 Balance 1200 720 Intake: Oral 1200 720 Other: Voiding Method Toilet Toilet # Voids 1 1 - Exam In general patient is alert and oriented x 3 in no distress HEENT head normocephalic and atraumatic Neck is supple no JVD no goiter no lymphadenopathy no carotid bruit Chest examination is clear to auscultation no crackles no wheezing Cardiac exam reveals regular heart sounds S1 and S2 no gallops no murmurs Abdomen is soft nontender no organomegaly with normal bowel sounds Extremity exam reveals no edema no cyanosis or clubbing Neurological examination reveals no gross focal deficits - Labs CBC & Chem 7: 11/29/23 10:20 11/29/23 10:20 Labs: Abnormal Lab Results - Last 24 Hours (Table) 11/29/23 11/29/23 Range/Units 10:20 10:20 RBC 3.23 L (4.30-5.90) m/uL Hgb 10.9 L (13.0-17.5) gm/dL Hct 34.0 L (39.0-53.0) % MCV 105.4 H (80.0-100.0) fL Lymphocytes # 0.9 L (1.0-4.8) k/uL Chloride 109 H (98-107) mmol/L Creatinine 0.64 L (0.66-1.25) mg/dL Calcium 8.2 L (8.4-10.2) mg/dL Total Protein 5.5 L (6.3-8.2) g/dL Albumin 3.1 L (3.5-5.0) g/dL Microbiology - Last 24 Hours (Table) 11/26/23 17:20 Blood Culture Gram Stain - Preliminary Blood Blood Culture - Preliminary Presumptive Staph aureus Molecular ID Assessment and Plan Assessment: 1. Alcohol withdrawals. Patient maintained on alcohol withdrawal protocol 2. Possible seizure 3. Fall with abrasion to left forehead 4. SVT. Cardiology services have been consulted 5. History of acute kidney injury 6. History of alcohol abuse 7. History of CVA 8. History of essential hypertension 9. History of hyperlipidemia 10. History of SVT with previous ablation 11. History of syncope 12. History of hypothyroidism 13. History of anxiety and depression 14. febrile possible pneumonia. Patient started on IV antibiotics 15. Positive blood culture DVT prophylaxis heparin. GI prophylaxis Protonix Patient to be admitted to the intensive care unit Continue seizure precautions Continue [facility] Neurology, cardiology and critical care service is consulted Repeat labs ordered
[2023-11-29] MEDS: POTASSIUM CHLORIDE ER 20 MEQ TAB.ER PO SCH (18:33)
--- NOTE | 2023-11-29 23:10 | P.PN ---
Subjective Progress Note Date: 11/29/23 Patient is a 53-year-old white male with past medical history significant for alcoholism, seizure disorder, CVA/TIA, hypertension, hyperlipidemia, SVT, hypothyroidism, among other things. Patient was brought in by EMS to the emergency department last night. He was witnessed to have a fall and suspected seizure-like activity by his mother at home. He has an abrasion on his left forehead. He is also suspected of having alcohol withdrawal. He had a recent hospitalization back in August, for similar presentation. Brain CT done on arrival did not show any acute intracranial process. He is currently in the emergency department, room 1. He is altered. He is restless and wheeling in bed. He has generalized tremors. Diaphoretic. Tachycardic on bedside monitor. No further seizure activity noted by nurses. He does have alcoholism, unknown when last drink. Serum alcohol level was less than 10 on arrival. He is on the CIWA protocol. Most recent CIWA score was 21. He has received a total of 6 mg of Ativan so far. On his previous admission, he required Precedex infusion and admission to the intensive care unit at that time. CBC unremarkable. Initial BMP: Sodium 144, potassium 5.8, chloride 109, serum CO2 14, anion gap 21, BUN 16, creatinine 1.28, glucose 158. Mag 2.3. Saline infusing at 130 MLS per hour. LFTs not elevated. Total bilirubin 0.7. Ammonia level 78. Urinalysis not remarkable for UTI. Afebrile. Urine toxicology screen negative. Patient's suspected alcohol withdrawal will be treated in the intensive care unit. The patient is seen today November 22, 2023 in follow-up in the intensive care unit. He is currently sitting up in bed. Awake and alert in no acute distress. Maintaining O2 saturations in the 90s on room air. He has normal saline at 130 MLS per hour. His potassium is being replaced. He did go into atrial fibrillation with rapid ventricular response last night and was on a Cardizem drip and a heparin drip. He had been seen by cardiology today who discontinued the drips and initiated Eliquis. He is currently in sinus rhythm. He had been requiring Ativan hourly most of yesterday but in the evening he was down to about every 3 hours. He is cooperative currently. White count 3.8. Hemoglobin 10.2. Platelets 86,000. Sodium 140. Potassium 3.2. Bicarb 22. BUN 6. Creatinine 0.63. The patient is seen today November 23, 2023 in follow-up on the selective care unit. He is awake and alert in no acute distress. He is maintaining O2 saturations in the 90s on room air. He has normal staying at 130 MLS per hour. He has a safety deposit clerk at the bedside. He did require a dose of Haldol at approximately midnight. He remains on the CIWA protocol. No seizures noted. Remains on seizure precautions. Remains on Vimpat. Echocardiogram revealed preserved left ventricular systolic function. He is currently in a sinus rhythm. He is an ticoagulated with Eliquis. The patient is seen today November 24, 2023 in follow-up on the selective care unit. He is currently sitting up in bed. Awake and alert in no acute distress. He is maintaining good O2 saturations in the 90s on room air. No IV fluids. No recent seizure activity. Remains in seizure precautions. Remains on the CIWA protocol. Currently in sinus rhythm. Anticoagulated with Eliquis. Blood cultures revealed no growth. White count 5.3. Hemoglobin 11.7. Sodium 147. Potassium 3.3. Sodium 138. Bicarb 22. BUN 3. Creatinine 0.68. Glucose 85. The patient is seen today November 25, 2023 in follow-up on the selective care unit. He is awake and alert in no acute distress. He is resting in bed. No seizure activity. He did require additional Ativan for restlessness last evening. Today he is more cooperative. He was up in the shower with assistance. food mixer remains at the bedside. He remains anticoagulated with Eliquis. Blood cultures revealed no growth. White count 3.6. Hemoglobin 12.3. Platelets 159. Sodium 138. Potassium 3.1. Bicarb 25. BUN 2. Creatinine 0.73. On today's evaluation of 11/26/2023, the patient is being seen for a follow-up. Noted to be slightly confused, nevertheless, there is no focal neurological deficit. Moving all 4 extremities other than limitation. There is increased anxiety and some occasional restlessness and agitation. No respiratory difficulties. No cough or sputum production or chest tightness or wheezing. He has history of alcoholism. The white cell count is at 4.1 with a hemoglobin 12.1 and a platelet count of 170. BUN is at 4 with a creatinine of 0.7 and sodium is at 140. A follow-up chest x-ray was done today and shows no acute abnormalities. There could be some limited atelectatic changes in the left lung base. The patient remains on Remeron and Seroquel at bedtime. The patient is also on Lamictal 50 mg p.o. twice a day. He takes long-term anticoagulation with Eliquis 5 mg p.o. twice a day. 11/27/2023, the patient is running a fever with a Tmax of 103.1. Currently afebrile. Remains confused. At times restless and agitated. Tries to wander and walk around without any purpose. No focal neurological deficits. No headaches. No neck stiffness. White cell count of 4.5 with a hemoglobin of 0.8 and a platelet count of 166. Electrolytes are stable and a potassium level at 3.3 that needs to be replaced with a BUN of 7 and a creatinine of 0.85. A follow-up chest x-ray was done and showed some atelectatic change left lung base. Otherwise, no airspace disease or consolidation. The patient was started empirically on IV antibiotics. Room air pulse ox 97%. The patient is on Seroquel and Remeron. He was receiving Haldol earlier. He is also on Ativan per protocol for alcohol withdrawal. He remains on a combination of Vimpat and Lamictal. On today's evaluation of 11/28/2023, the patient is afebrile. Nevertheless he was having fever throughout the day yesterday. Blood culture came back positive for Staph aureus and the patient is currently on vancomycin. Hemodynamically stable. Exact source of this infection is not clear to me at this point in time. The patient is less agitated on today's evaluation. No chest pain. No shortness of breath. No nausea vomiting or diarrhea or abdominal pain. No frequency or urgency. No open wounds or ulcers. White cell count of 5.0 with a hemoglobin of 11.1 and a BUN is 9 with a creatinine 0.7 and sodium is at 135 with a potassium level of 3.3. UA is negative. The viral screen is also negative. On today's evaluation of 12/01/2023, the patient is being seen for a follow-up. The patient is afebrile on this morning. Nevertheless, he was spiking temperature earlier and the last temperature spike was at midnight yesterday. The final blood cultures has not resulted yet. This is presumptive Staph aureus and the patient remains on vancomycin. Hemodynamically stable. Rest of the treatment remains unchanged. The patient has a white cell count of 5 with a hemoglobin 7.9 and a platelet count of 173. Electrolytes are all within normal limits. The patient otherwise has no fever or chills. No headaches. No nausea or dizziness. No signs of meningitis. He is currently completing course of vancomycin. Objective - Vital Signs Vital signs: Vital Signs Temp 98.7 F 11/28/23 20:00 Pulse 71 11/29/23 04:00 Resp 18 11/29/23 04:00 BP 128/76 11/29/23 04:00 Pulse Ox 99 11/29/23 04:00 FiO2 100 11/20/23 19:35 Intake & Output 11/28/23 11/29/23 11/29/23 18:59 06:59 18:59 Intake Total 1200 720 Balance 1200 720 Intake: Oral 1200 720 Other: Voiding Method Toilet Toilet # Voids 1 1 - Exam GENERAL EXAM: Awake, currently cooperative 53-year-old male, sitting up in bed, on room air. No current seizure activity. HEAD: Normocephalic. Left forehead abrasion EYES: Normal reaction of pupils, equal size. NOSE: Clear with pink turbinates. THROAT: No erythema or exudates. Edentulous. NECK: No masses, no JVD. CHEST: No chest wall deformity. LUNGS: Equal air entry with no crackles, wheeze, rhonchi or dullness. No conversational dyspnea. CVS: S1 and S2 normal with no audible murmur, regular rhythm. No extra heart sounds. Tachycardic. ABDOMEN: No hepatosplenomegaly, active bowel sounds, no guarding or rigidity. SPINE: No scoliosis or deformity SKIN: No rashes CENTRAL NERVOUS SYSTEM: No focal deficits, tone is normal in all 4 extremities. EXTREMITIES: There is no peripheral edema, clubbing, or cyanosis. Peripheral pulses are intact. - Labs CBC & Chem 7: 11/29/23 10:20 11/29/23 10:20 Labs: Abnormal Lab Results - Last 24 Hours (Table) 11/29/23 Range/Units 10:20 RBC 3.23 L (4.30-5.90) m/uL Hgb 10.9 L (13.0-17.5) gm/dL Hct 34.0 L (39.0-53.0) % MCV 105.4 H (80.0-100.0) fL Lymphocytes # 0.9 L (1.0-4.8) k/uL Microbiology - Last 24 Hours (Table) 11/26/23 17:20 Blood Culture Gram Stain - Preliminary Blood Blood Culture - Preliminary Presumptive Staph aureus Molecular ID Assessment and Plan Plan: Fever with Staph aureus sepsis, exact source is unclear the patient is currently on vancomycin. Currently afebrile and hemodynamically stable. The patient remains afebrile. acute alcohol withdrawal delirium tremens, unsure last known drink and serum EtOH level less than 10 on arrival, patient does have history of alcoholism and has had a recent hospitalization with similar presentation August, which required admission to the intensive care unit, currently the patient is on the medical floor. The patient remains encephalopathic and confused. Sitter at the bedside. No focal neurological deficit. No signs of meningitis. Acute fever, currently afebrile Suspected seizure, with history of seizure disorder, currently on Vimpat Fall with abrasion to left forehead Atrial fibrillation with rapid ventricular response, converted with Cardizem drip, on Eliquis Acute hypoxemic respiratory failure, recovered and on room air, likely secondary to DTs, chest x-ray does not show any focal infiltrates or evidence of pneumonia. No reported aspiration events, chest x-ray within normal limits and the patient is currently on room air oxygen, no indication for an acute pneumonia based on the most send chest x-ray findings. Acute kidney injury, likely secondary to severe dehydration and ATN, recovered, renal function is normal Anion gap metabolic acidosis, recovered Hyperammonemia, recovered History of alcoholism History of CVA/TIA History of hypertension History of hyperlipidemia History of SVT with previous ablation History of syncope History of hypothyroidism History of anxiety and depression Plan: Continue IV vancomycin Suggest repeating the blood cultures to document negativity and clearing of the positive blood cultures Presumptive Staph aureus in the blood Clinically stable and hemodynamically stable Chest x-ray was noted and essentially clear with some limited atelectatic change the left lung base Stable and on room air Continue the current treatment plan Continue Remeron and Seroquel, and consult with psychiatry Continue Vimpat Continue anticoagulation with Eliquis Monitor mental status ID consult Psychiatry consult Will continue to follow
[2023-11-30] MEDS: VANCOMYCIN TROUGH DUE 1 EACH MISC MISCELLANE ONE (10:02)
--- NOTE | 2023-11-30 10:34 | P.PN ---
Subjective Progress Note Date: 11/30/23 This is a 53-year-old patient well-known to my services presented to the ER with concerns of Alcohol withdrawal's and questionable seizure. Patient has a past medical history of EtOH abuse along with seizures. Patient noted to have a laceration above left eye. Additional medical history includes CVA, h yperlipidemia, hypertension, SVT, syncope and cardiac ablation.CT of head completed showing no evidence of acute intracranial abnormality atrophy and chronic microvascular ischemia white matter changes.Chest x-ray completed showing no acute cardiopulmonary findings.EKG completed showing sinus tachyc ardia past with atrial flutter heart rate 147.UA negative. Drug screen negative. Serum alcohol less than 10 at this time patient will be admitted. Patient started on alcohol child protocol. Continue seizure precautions. Neurology, cardiology and critical care services have been consulted. At this time patient is sitting in bed sitter at bedside. Patient having some tremors On 11/22/2023 patient was seen and examined in the ICU, he is alert and responsive in no apparent distress, he denies any complaints at this time there is no fever or chills no headache or dizziness no chest pain no shortness of breath no cough no nausea or vomiting no abdominal pain no diarrhea and no urinary symptoms. Echocardiogram revealed preserved LV function with an ejection fraction of 50 to 55%, with evidence of prior inferior wall myocardial infarction. Patient was seen by neurology and EEG was performed, he is improving gradually. On 11/23/2023 patient was seen and examined on the medical floor he is alert and oriented x 3 in no apparent distress there is no fever or chills no headache or dizziness no chest pain no shortness of breath no cough no nausea or vomiting no abdominal pain no diarrhea no urinary symptoms, he is still having episodes of confusion and agitation, he has 24-hour sitter, he is receiving IV Ativan as needed, and received a dose of Haldol last night, neurology are following. On 11/24/2023 patient was seen and examined on the medical floor he is alert and oriented x 3 in no distress, he had episodes of agitation last night, requiring the use of Ativan and Haldol, at this time he has a sitter, he seems to be calm, there is no fever or chills no headache or dizziness no chest pain no shortness of breath no cough no nausea or vomiting no abdominal pain no diarrhea no u rinary symptoms, neurology input reviewed, I will add a psychiatry consult, I will continue to follow closely. On 11/25/2023 patient was seen and examined on the medical floor he is alert and oriented x 3 in no apparent distress there is no fever or chills no headache or dizziness no chest pain no shortness of breath no cough no nausea or vomiting no abdominal pain no diarrhea and no urinary symptoms, patient is still having occasional episodes of agitation, psychiatry consult requested, will continue to follow. On 11/26/2023 patient was seen and examined on the medical floor he is alert and oriented x 3 in no apparent distress, he had an episode of severe anxiety with mild agitation this morning otherwise he denies any complaints there is no fever or chills no headache or dizziness no chest pain or shortness of breath no cough no nausea or vomiting no abdominal pain no diarrhea no urinary symptoms. At this time we are awaiting consult and recommendation from psychiatry. On 11/27/2023 patient is alert and oriented 3. Patient had elevated temperature 103. UA negative. Chest x-ray completed showing possible acute infiltrate and small effusion left lung base. Pulmonary services are following. Will reconsult neurology services to further assess she needs lumbar puncture. Patient was started on antibiotics blood and sputum cultures ordered.Patient denies any chest pain or shortness breath. Patient denies nausea and diarrhea. Patient denies any urinary burning or frequency On 11/28/2023 patient's alert and oriented 3. Less agitated than yesterday. Blood culture positive. Vancomycin added. At this time patient denies chest pain or shortness of breath. Patient denies nausea vomiting or diarrhea. Patient denies any urinary burning or frequency. On 11/29/2023 patient was seen and examined on the medical floor he is alert and oriented x 3 in no apparent distress there is no fever or chills no headache or dizziness no chest pain no shortness of breath no cough no nausea or vomiting no abdominal pain no diarrhea and no urinary symptoms, he remains on IV antibiotics including IV vancomycin, for positive blood culture for Staphylococcus aureus, will continue to follow closely on 11/30/2023 patient's alert and oriented 3. Patient reports improvement currently sitting up in chair. Discussed blood culture with lab results not finalized from initial blood culture on 11/25 likely not MRSA. Repeat blood culture has been ordered. Patient has been afebrile. Current vital signs temp 98.3, heart rate 84, respiratory rate 18, blood pressure 113/72 with pulse ox 98% on room air Objective - Vital Signs Vital signs: Vital Signs Temp 98.3 F 11/30/23 04:00 Pulse 84 11/30/23 04:00 Resp 18 11/30/23 04:00 BP 113/72 11/30/23 04:00 Pulse Ox 98 11/30/23 04:00 FiO2 100 11/20/23 19:35 Intake & Output 11/29/23 11/30/23 11/30/23 18:59 06:59 18:59 Intake Total 1680 10 740 Balance 1680 10 740 Intake: IV 10 Invasive Line 5 10 Oral 1680 740 Other: Voiding Method Toilet Toilet # Voids 1 3 - Exam In general patient is alert and oriented x 3 in no distress HEENT head normocephalic and atraumatic Neck is supple no JVD no goiter no lymphadenopathy no carotid bruit Chest examination is clear to auscultation no crackles no wheezing Cardiac exam reveals regular heart sounds S1 and S2 no gallops no murmurs Abdomen is soft nontender no organomegaly with normal bowel sounds Extremity exam reveals no edema no cyanosis or clubbing Neurological examination reveals no gross focal deficits - Labs CBC & Chem 7: 11/29/23 10:20 11/29/23 10:20 Labs: Abnormal Lab Results - Last 24 Hours (Table) 11/29/23 11/29/23 Range/Units 10:20 10:20 RBC 3.23 L (4.30-5.90) m/uL Hgb 10.9 L (13.0-17.5) gm/dL Hct 34.0 L (39.0-53.0) % MCV 105.4 H (80.0-100.0) fL Lymphocytes # 0.9 L (1.0-4.8) k/uL Chloride 109 H (98-107) mmol/L Creatinine 0.64 L (0.66-1.25) mg/dL Calcium 8.2 L (8.4-10.2) mg/dL Total Protein 5.5 L (6.3-8.2) g/dL Albumin 3.1 L (3.5-5.0) g/dL Assessment and Plan Assessment: 1. Alcohol withdrawals. Patient maintained on alcohol withdrawal protocol 2. Possible seizure 3. Fall with abrasion to left forehead 4. SVT. Cardiology services have been consulted 5. History of acute kidney injury 6. History of alcohol abuse 7. History of CVA 8. History of essential hypertension 9. History of hyperlipidemia 10. History of SVT with previous ablation 11. History of syncope 12. History of hypothyroidism 13. History of anxiety and depression 14. febrile possible pneumonia. Patient started on IV antibiotics 15. Positive blood culture DVT prophylaxis heparin. GI prophylaxis Protonix Patient to be admitted to the intensive care unit Continue seizure precautions Continue [facility] Neurology, cardiology and critical care service is consulted Repeat labs ordered
[2023-11-30 10:36] LABS: African American GFR (CKD) >90 (>60 ml/min/1.73 sqM); Non-African American GFR(CKD) >90 (>60 ml/min/1.73 sqM)
--- NOTE | 2023-11-30 11:55 | P.PN ---
Subjective Progress Note Date: 11/29/23 11/29/2023: Patient was seen for a follow-up. Patient states he is feeling much better. Patient states that the other day he felt like his head was "watermelon" like a "helium balloon". Now he feels much better. He wants to go home. 11/28/2023: Patient was seen for a follow-up. Patient is sitting comfortably in the recliner. He appears much more alert and awake. Mentation seems better. He himself feels much better. Denies any headache. Patient is asking when he can go home. 11/27/2023: Patient was seen for a follow-up. Patient is laying comfortably in the bed. Per sitter, patient is very confused. Patient offers no complaints. Denies any headache at this time. 11/26/2023: Patient was seen for a follow-up. Patient initially seen by Dr. Maxwell Hooks. Please refer to his note for details. Patient is a 53-year-old male known to neurology service from multiple admissions for mental confusion and had multiple EEGs which were negative. Dr. Hooks was not sure if it is alcohol/DT related or seizure that has not been picked up. Patient is currently on Vimpat and Dr. Hooks increase the dose of Lamictal from 25 twice daily to 50 mg twice daily. Patient remembers me by my name from previous hospitalization. Patient states that he feels a lot better. Patient is in no distress. Complains of some dizziness. Patient has received morphine earlier today, therefore is slightly confused. However he has developed new-onset temperature of 102.4. He had undergone chest x-ray and UA. Results pending. Per nursing report, is very confused, hallucinating, delirious. Some of the workup during this hospital visit consisted of: Has been severely tachycardic on presentation initially in the 275 then in the 150s to 160s MCV is 110 and repeat is 107 Calcium is 5.8 Creatinine is 1.28 and repeat is normal Initial serum glucose is 158 Calcium is normal Magnesium is 2.3 AST ALT is within normal limits Ammonia is 78 and repeat <9 Urine drug screen is not detected and the urine alcohol is less than 10. CT of the head is reported as no CT evidence of acute intracranial abnormality. Atrophy and chronic microvascular ischemic white matter changes. Reviewed the CT and I agree with the report. EKG is reported as atrial flutter/tachycardia with RVR. Routine EEG: Is abnormal. The background slowing is suggestive of moderate encephalopathy. There is no focal slowing, epileptiform discharges or seizure on the EEG. 2D echo: Presevered LV function with EF 50-55%. Dilated left atrium. Evidence of prior inferior wall OR. Objective - Vital Signs Vital signs: Vital Signs Temp 97.0 F L 11/29/23 16:00 Pulse 68 11/29/23 16:00 Resp 18 11/29/23 16:00 BP 139/87 11/29/23 16:00 Pulse Ox 100 11/29/23 16:00 FiO2 100 11/20/23 19:35 Intake & Output 11/29/23 11/29/23 11/30/23 06:59 18:59 06:59 Intake Total 1680 Balance 1680 Intake: Oral 1680 Other: Voiding Method Toilet Toilet # Voids 1 1 - Exam Patient is fully alert and awake, with normal sensorium. His mentation has also improved as compared to yesterday. Patient is oriented 4, knows it is November 2023 and that is in [facility] in [place] and name of the current president. Patient's neck is supple. Speech and language functions are normal. No aphasia. On cranial examination pupils are equal, round and reacting. Visual french are full, with no neglect. Face is symmetric and tongue protrudes the midline. On muscle strength testing, the muscle strength is normal in the lower extremities in the hip flexion and ankle dorsiflexion. In the upper limbs, is mostly 5-with division order technician about 5 bilaterally. No ataxia for [id number] testing. Patient has peripheral edema. - Labs CBC & Chem 7: 11/29/23 10:20 11/30/23 09:19 Labs: Abnormal Lab Results - Last 24 Hours (Table) 11/29/23 11/29/23 Range/Units 10:20 10:20 RBC 3.23 L (4.30-5.90) m/uL Hgb 10.9 L (13.0-17.5) gm/dL Hct 34.0 L (39.0-53.0) % MCV 105.4 H (80.0-100.0) fL Lymphocytes # 0.9 L (1.0-4.8) k/uL Chloride 109 H (98-107) mmol/L Creatinine 0.64 L (0.66-1.25) mg/dL Calcium 8.2 L (8.4-10.2) mg/dL Total Protein 5.5 L (6.3-8.2) g/dL Albumin 3.1 L (3.5-5.0) g/dL Assessment and Plan Assessment: This is a 53-year-old gentleman presents emergency department for suspected seizure, and the family felt he was having jerking movement tends to fall as a result of the seizure. Patient has previous history of alcohol withdrawal/delirium tremens. Patient has history of seizure and had multiple EEGs in our facility as well as a prolonged EEG which were negative for any seizures or discharges. He was last seen by our neurology support team member on 09/17/2023 and was felt he has delirium due to hypoglycemia. Currently his alcohol level is less than 10 Encephalopathy, probably toxic metabolic, improved New-onset fever, probably due to pneumonia. Patient has positive blood culture with gram-positive cocci in clusters, suspecting staph aureus. No evidence of meningitis/encephalitis. Elevated ammonia level 78 on admission, but now <9 History of seizure and patient had multiple EEGs as well as prolonged EEG in our facility which were negative for any seizure or discharges Microcytic anemia is felt likely due to alcoholism History of cardiomyopathy status post ablation Hypothyroidism History of remote right basal ganglia stroke History of psychosis requiring admission to the [facility] Anxiety depression Alcohol use Plan: Patient has positive blood culture, growing gram-positive cocci in clusters. Staph aureus suspected. Vancomycin and also started. No clinical evidence of meningitis/encephalitis. No indication for lumbar puncture. Patient is resumed on his home medication of Vimpat [address] Hooks has increased his home dose of Lamictal 25 mg twice daily to 50mg bid. Seizure precaution and pad. Patient is on CIWA protocol. Cardiology also on board. Continue thiamine. Per [place] DMV because of seizure, avoid driving for 6 months until seizure fee, avoid heights, avoid swimming unassisted or using heavy machinery. Will defer the rest of the medical management to primary and other specialists Upon discharge, recommend the patient to follow-up with his neurologist (Dr. Mcadams) as outpatient with in 1-2 weeks Neurologically clear for discharge, when medically cleared.
[2023-11-30 14:06] VITALS: BMI 20.9
[2023-11-30] MEDS: VANCOMYCIN 1,250 MG in SODIUM CHLORIDE 0.9% 250 ML IVPB SCH (17:23)
[2023-11-30] MEDS: diphenhydrAMINE 50 MG/ML 1 ML VIAL IVP STA (20:20)
--- NOTE | 2023-11-30 23:05 | P.PN ---
Subjective Progress Note Date: 11/30/23 Patient is a 53-year-old white male with past medical history significant for alcoholism, seizure disorder, CVA/TIA, hypertension, hyperlipidemia, SVT, hypothyroidism, among other things. Patient was brought in by EMS to the emergency department last night. He was witnessed to have a fall and suspected seizure-like activity by his mother at home. He has an abrasion on his left forehead. He is also suspected of having alcohol withdrawal. He had a recent hospitalization back in August, for similar presentation. Brain CT done on arrival did not show any acute intracranial process. He is currently in the emergency department, room 1. He is altered. He is restless and wheeling in bed. He has generalized tremors. Diaphoretic. Tachycardic on bedside monitor. No further seizure activity noted by nurses. He does have alcoholism, unknown when last drink. Serum alcohol level was less than 10 on arrival. He is on the CIWA protocol. Most recent CIWA score was 21. He has received a total of 6 mg of Ativan so far. On his previous admission, he required Precedex infusion and admission to the intensive care unit at that time. CBC unremarkable. Initial BMP: Sodium 144, potassium 5.8, chloride 109, serum CO2 14, anion gap 21, BUN 16, creatinine 1.28, glucose 158. Mag 2.3. Saline infusing at 130 MLS per hour. LFTs not elevated. Total bilirubin 0.7. Ammonia level 78. Urinalysis not remarkable for UTI. Afebrile. Urine toxicology screen negative. Patient's suspected alcohol withdrawal will be treated in the intensive care unit. The patient is seen today November 22, 2023 in follow-up in the intensive care unit. He is currently sitting up in bed. Awake and alert in no acute distress. Maintaining O2 saturations in the 90s on room air. He has normal saline at 130 MLS per hour. His potassium is being replaced. He did go into atrial fibrillation with rapid ventricular response last night and was on a Cardizem drip and a heparin drip. He had been seen by cardiology today who discontinued the drips and initiated Eliquis. He is currently in sinus rhythm. He had been requiring Ativan hourly most of yesterday but in the evening he was down to about every 3 hours. He is cooperative currently. White count 3.8. Hemoglobin 10.2. Platelets 86,000. Sodium 140. Potassium 3.2. Bicarb 22. BUN 6. Creatinine 0.63. The patient is seen today November 23, 2023 in follow-up on the selective care unit. He is awake and alert in no acute distress. He is maintaining O2 saturations in the 90s on room air. He has normal staying at 130 MLS per hour. He has a boating safety officer at the bedside. He did require a dose of Haldol at approximately midnight. He remains on the CIWA protocol. No seizures noted. Remains on seizure precautions. Remains on Vimpat. Echocardiogram revealed preserved left ventricular systolic function. He is currently in a sinus rhythm. He is an ticoagulated with Eliquis. The patient is seen today November 24, 2023 in follow-up on the selective care unit. He is currently sitting up in bed. Awake and alert in no acute distress. He is maintaining good O2 saturations in the 90s on room air. No IV fluids. No recent seizure activity. Remains in seizure precautions. Remains on the CIWA protocol. Currently in sinus rhythm. Anticoagulated with Eliquis. Blood cultures revealed no growth. White count 5.3. Hemoglobin 11.7. Sodium 147. Potassium 3.3. Sodium 138. Bicarb 22. BUN 3. Creatinine 0.68. Glucose 85. The patient is seen today November 25, 2023 in follow-up on the selective care unit. He is awake and alert in no acute distress. He is resting in bed. No seizure activity. He did require additional Ativan for restlessness last evening. Today he is more cooperative. He was up in the shower with assistance. die stamper remains at the bedside. He remains anticoagulated with Eliquis. Blood cultures revealed no growth. White count 3.6. Hemoglobin 12.3. Platelets 159. Sodium 138. Potassium 3.1. Bicarb 25. BUN 2. Creatinine 0.73. On today's evaluation of 11/26/2023, the patient is being seen for a follow-up. Noted to be slightly confused, nevertheless, there is no focal neurological deficit. Moving all 4 extremities other than limitation. There is increased anxiety and some occasional restlessness and agitation. No respiratory difficulties. No cough or sputum production or chest tightness or wheezing. He has history of alcoholism. The white cell count is at 4.1 with a hemoglobin 12.1 and a platelet count of 170. BUN is at 4 with a creatinine of 0.7 and sodium is at 140. A follow-up chest x-ray was done today and shows no acute abnormalities. There could be some limited atelectatic changes in the left lung base. The patient remains on Remeron and Seroquel at bedtime. The patient is also on Lamictal 50 mg p.o. twice a day. He takes long-term anticoagulation with Eliquis 5 mg p.o. twice a day. 11/27/2023, the patient is running a fever with a Tmax of 103.1. Currently afebrile. Remains confused. At times restless and agitated. Tries to wander and walk around without any purpose. No focal neurological deficits. No headaches. No neck stiffness. White cell count of 4.5 with a hemoglobin of 0.8 and a platelet count of 166. Electrolytes are stable and a potassium level at 3.3 that needs to be replaced with a BUN of 7 and a creatinine of 0.85. A follow-up chest x-ray was done and showed some atelectatic change left lung base. Otherwise, no airspace disease or consolidation. The patient was started empirically on IV antibiotics. Room air pulse ox 97%. The patient is on Seroquel and Remeron. He was receiving Haldol earlier. He is also on Ativan per protocol for alcohol withdrawal. He remains on a combination of Vimpat and Lamictal. On today's evaluation of 11/28/2023, the patient is afebrile. Nevertheless he was having fever throughout the day yesterday. Blood culture came back positive for Staph aureus and the patient is currently on vancomycin. Hemodynamically stable. Exact source of this infection is not clear to me at this point in time. The patient is less agitated on today's evaluation. No chest pain. No shortness of breath. No nausea vomiting or diarrhea or abdominal pain. No frequency or urgency. No open wounds or ulcers. White cell count of 5.0 with a hemoglobin of 11.1 and a BUN is 9 with a creatinine 0.7 and sodium is at 135 with a potassium level of 3.3. UA is negative. The viral screen is also negative. On today's evaluation of 12/01/2023, the patient is being seen for a follow-up. The patient is afebrile on this morning. Nevertheless, he was spiking temperature earlier and the last temperature spike was at midnight yesterday. The final blood cultures has not resulted yet. This is presumptive Staph aureus and the patient remains on vancomycin. Hemodynamically stable. Rest of the treatment remains unchanged. The patient has a white cell count of 5 with a hemoglobin 7.9 and a platelet count of 173. Electrolytes are all within normal limits. The patient otherwise has no fever or chills. No headaches. No nausea or dizziness. No signs of meningitis. He is currently completing course of vancomycin. 11/30/2023, the patient remained hemodynamically stable, on room air oxygen. Afebrile on room air oxygen. The patient remains on vancomycin. No specific complaints otherwise. White cell count remains at 5 with a hemoglobin 10.9. His not showing any signs of any agitation. No further change in his mental status. No nausea vomiting or emesis. No chest pain. No cardiac arrhythmias. Objective - Vital Signs Vital signs: Vital Signs Temp 97.0 F L 11/30/23 08:00 Pulse 78 11/30/23 08:00 Resp 16 11/30/23 08:00 BP 95/60 11/30/23 08:00 Pulse Ox 97 11/30/23 08:00 FiO2 100 11/20/23 19:35 Intake & Output 11/29/23 11/30/23 11/30/23 18:59 06:59 18:59 Intake Total 1680 10 740 Balance 1680 10 740 Intake: IV 10 Invasive Line 5 10 Oral 1680 740 Other: Voiding Method Toilet Toilet Toilet # Voids 1 3 - Exam GENERAL EXAM: Awake, currently cooperative 53-year-old male, sitting up in bed, on room air. No current seizure activity. HEAD: Normocephalic. Left forehead abrasion EYES: Normal reaction of pupils, equal size. NOSE: Clear with pink turbinates. THROAT: No erythema or exudates. Edentulous. NECK: No masses, no JVD. CHEST: No chest wall deformity. LUNGS: Equal air entry with no crackles, wheeze, rhonchi or dullness. No conversational dyspnea. CVS: S1 and S2 normal with no audible murmur, regular rhythm. No extra heart sounds. Tachycardic. ABDOMEN: No hepatosplenomegaly, active bowel sounds, no guarding or rigidity. SPINE: No scoliosis or deformity SKIN: No rashes CENTRAL NERVOUS SYSTEM: No focal deficits, tone is normal in all 4 extremities. EXTREMITIES: There is no peripheral edema, clubbing, or cyanosis. Peripheral pulses are intact. - Labs CBC & Chem 7: 11/29/23 10:20 11/30/23 09:19 Assessment and Plan Plan: Fever with Staph aureus sepsis, exact source is unclear the patient is currently on vancomycin. Currently afebrile and hemodynamically stable. The patient remains afebrile. acute alcohol withdrawal delirium tremens, unsure last known drink and serum EtOH level less than 10 on arrival, patient does have history of alcoholism and has had a recent hospitalization with similar presentation August, which required admission to the intensive care unit, currently the patient is on the medical floor. The patient remains encephalopathic and confused. Sitter at the bedside. No focal neurological deficit. No signs of meningitis. Acute fever, currently afebrile Suspected seizure, with history of seizure disorder, currently on Vimpat Fall with abrasion to left forehead Atrial fibrillation with rapid ventricular response, converted with Cardizem drip, on Eliquis Acute hypoxemic respiratory failure, recovered and on room air, likely secondary to DTs, chest x-ray does not show any focal infiltrates or evidence of pneumonia. No reported aspiration events, chest x-ray within normal limits and the patient is currently on room air oxygen, no indication for an acute pneumonia based on the most send chest x-ray findings. Acute kidney injury, likely secondary to severe dehydration and ATN, recovered, renal function is normal Anion gap metabolic acidosis, recovered Hyperammonemia, recovered History of alcoholism History of CVA/TIA History of hypertension History of hyperlipidemia History of SVT with previous ablation History of syncope History of hypothyroidism History of anxiety and depression Plan: Continue IV vancomycin, awaiting final culture sensitivities. Suggest repeating the blood cultures to document negativity and clearing of the positive blood cultures Clinically stable and hemodynamically stable Chest x-ray was noted and essentially clear with some limited atelectatic change the left lung base Stable and on room air Continue the current treatment plan Continue Remeron and Seroquel, and consult with psychiatry Continue Vimpat Continue anticoagulation with Eliquis Monitor mental status ID consult Psychiatry consult Will continue to follow
--- NOTE | 2023-11-30 23:17 | P.PN ---
Subjective Progress Note Date: 11/30/23 11/30/2023: Patient was seen for a follow-up. Patient is sitting in the bed, fairly well dressed and groomed. Wants to go home. Patient admits that he has been drinking 5 beers per night about 3 times a week. He has been doing this for last 2 to 3 years. 11/29/2023: Patient was seen for a follow-up. Patient states he is feeling much better. Patient states that the other day he felt like his head was "watermelon" like a "helium balloon". Now he feels much better. He wants to go home. 11/28/2023: Patient was seen for a follow-up. Patient is sitting comfortably in the recliner. He appears much more alert and awake. Mentation seems better. He himself feels much better. Denies any headache. Patient is asking when he can go home. 11/27/2023: Patient was seen for a follow-up. Patient is laying comfortably in the bed. Per sitter, patient is very confused. Patient offers no complaints. Denies any headache at this time. 11/26/2023: Patient was seen for a follow-up. Patient initially seen by Dr. Maxwell Hooks. Please refer to his note for details. Patient is a 53-year-old male known to neurology service from multiple admissions for mental confusion and had multiple EEGs which were negative. Dr. Hooks was not sure if it is alcohol/DT related or seizure that has not been picked up. Patient is currently on Vimpat and Dr. Hooks increase the dose of Lamictal from 25 twice daily to 50 mg twice daily. Patient remembers me by my name from previous hospitalization. Patient states that he feels a lot better. Patient is in no distress. Complains of some dizziness. Patient has received morphine earlier today, therefore is slightly confused. However he has developed new-onset temperature of 102.4. He had undergone chest x-ray and UA. Results pending. Per nursing report, is very confused, hallucinating, delirious. Some of the workup during this hospital visit consisted of: Has been severely tachycardic on presentation initially in the 275 then in the 150s to 160s MCV is 110 and repeat is 107 Calcium is 5.8 Creatinine is 1.28 and repeat is normal Initial serum glucose is 158 Calcium is normal Magnesium is 2.3 AST ALT is within normal limits Ammonia is 78 and repeat <9 Urine drug screen is not detected and the urine alcohol is less than 10. CT of the head is reported as no CT evidence of acute intracranial abnormality. Atrophy and chronic microvascular ischemic white matter changes. Reviewed the CT and I agree with the report. EKG is reported as atrial flutter/tachycardia with RVR. Routine EEG: Is abnormal. The background slowing is suggestive of moderate encephalopathy. There is no focal slowing, epileptiform discharges or seizure on the EEG. 2D echo: Presevered LV function with EF 50-55%. Dilated left atrium. Evidence of prior inferior wall NC. Objective - Vital Signs Vital signs: Vital Signs Temp 97.0 F L 11/30/23 12:00 Pulse 74 11/30/23 14:00 Resp 18 11/30/23 14:00 BP 116/71 11/30/23 12:00 Pulse Ox 98 11/30/23 12:00 FiO2 100 11/20/23 19:35 Intake & Output 11/29/23 11/30/23 11/30/23 18:59 06:59 18:59 Intake Total 1680 10 1220 Balance 1680 10 1220 Weight 57 kg Intake: IV 10 Invasive Line 5 10 Oral 1680 1220 Other: Voiding Method Toilet Toilet Toilet # Voids 1 3 - Exam Patient is fully alert and awake, with normal sensorium. His mentation has also improved as compared to yesterday. Patient is oriented 4, knows it is November 2023 and that is in [facility] in [place] and name of the current president. Patient's neck is supple. Speech and language functions are normal. No aphasia. On cranial examination pupils are equal, round and reacting. Visual french are full, with no neglect. Face is symmetric and tongue protrudes the midline. On muscle strength testing, the muscle strength is normal in the lower extremities in the hip flexion and ankle dorsiflexion. In the upper limbs, is mostly 5-with vaudeville actor about 5 bilaterally. No ataxia for [id number] testing. Patient has peripheral edema. - Labs CBC & Chem 7: 11/29/23 10:20 11/30/23 09:19 Labs: Microbiology - Last 24 Hours (Table) 11/26/23 17:20 Blood Culture Gram Stain - Final Blood Blood Culture - Final Staphylococcus aureus Molecular ID Assessment and Plan Assessment: This is a 53-year-old gentleman presents emergency department for suspected seizure, and the family felt he was having jerking movement tends to fall as a result of the seizure. Patient has previous history of alcohol withdrawal/de lirium tremens. Patient has history of seizure and had multiple EEGs in our facility as well as a prolonged EEG which were negative for any seizures or discharges. He was last seen by our neurology steam fitter helper on 09/17/2023 and was felt he has delirium due to hypoglycemia. Currently his alcohol level is less than 10 Encephalopathy, probably toxic metabolic, resolved New-onset fever, probably due to pneumonia. Patient has positive blood culture with gram-positive cocci in clusters, suspecting staph aureus. No evidence of meningitis/encephalitis. Patient's mentation is normal. Elevated ammonia level 78 on admission, but now <9 History of seizure and patient had multiple EEGs as well as prolonged EEG in our facility which were negative for any seizure or discharges Microcytic anemia is felt likely due to alcoholism History of cardiomyopathy status post ablation Hypothyroidism History of remote right basal ganglia stroke History of psychosis requiring admission to the [facility] Anxiety depression Alcohol use Plan: Patient has positive blood culture, growing gram-positive cocci in clusters. Staph aureus. Vancomycin and also started. No clinical evidence of meningitis/encephalitis. No indication for lumbar puncture. Patient's mentation appears back to normal. Patient is resumed on his home medication of Vimpat [address] Hooks has increased his home dose of Lamictal 25 mg twice daily to 50mg bid. Seizure precaution and pad. Patient is on CIWA protocol. Cardiology also on board. Continue thiamine. Per [place] DM[place] because of seizure, avoid driving for 6 months until seizure fee, avoid heights, avoid swimming unassisted or using heavy machinery. Will defer the rest of the medical management to primary and other specialists Upon discharge, recommend the patient to follow-up with his neurologist (Dr. Mcadams) as outpatient with in 1-2 weeks Neurologically clear for discharge, when medically cleared. Please reconsult neurology if any concerns. Dr. Cuellar starting neurology service over the weekend, and Dr. Hooks starting service from Sunday.
[2023-12-01] MEDS ORDERED: VANCOMYCIN TROUGH DUE 1 EACH MISC MISCELLANE ONE (09:00)
[2023-12-01 09:41] VITALS: BP 103/68; PULSE 72; RESP 16; TEMP 98.1
--- NOTE | 2023-12-01 10:18 | P.DS ---
Providers Date of admission: 11/21/23 00:40 Expected date of discharge: 12/01/23 Attending physician: Aries Ma Consults: 11/21/23 00:37 Consult Physician Routine Consulting Provider: Maxwell Hooks Consult Reason/Comments: Altered mental status. Acute seizure. Do you want consulting provider notified?: Yes Consult Physician Stat Consulting Provider: Austin Hooks Consult Reason/Comments: Delirium tremens Do you want consulting provider notified?: Yes 11/21/23 06:29 Consult Physician Urgent Consulting Provider: Eric Tinajero Consult Reason/Comments: SVT Do you want consulting provider notified?: Yes, Notify in am 11/24/23 09:59 Consult Physician Routine Consulting Provider: Greg Suarez Consult Reason/Comments: episodes of agitation Do you want consulting provider notified?: Yes 11/27/23 09:29 Consult Physician Routine Consulting Provider: Maxwell Hooks Consult Reason/Comments: fevers [facility]? Do you want consulting provider notified?: Yes 11/27/23 12:34 Consult Physician Routine Consulting Provider: Juan Alberto Mac Consult Reason/Comments: episodes of agitation Do you want consulting provider notified?: Yes 11/27/23 14:31 Consult Physician Routine Consulting Provider: Kitty Chakraborty Consult Reason/Comments: fever, confusion Do you want consulting provider notified?: Yes Primary care physician: Aries Ma [facility] [place] [facility] Course: Discharge diagnosis 1. Alcohol withdrawals. Patient maintained on alcohol withdrawal protocol 2. Possible seizure 3. Fall with abrasion to left forehead 4. SVT. Cardiology services have been consulted 5. History of acute kidney injury 6. History of alcohol abuse 7. History of CVA 8. History of essential hypertension 9. History of hyperlipidemia 10. History of SVT with previous ablation 11. History of syncope 12. History of hypothyroidism 13. History of anxiety and depression 14. febrile possible pneumonia. Patient started on IV antibiotics 15. Positive blood culture Hospital course This is a 53-year-old patient well-known to my services presented to the ER with concerns of Alcohol withdrawal's and questionable seizure. Patient has a past medical history of EtOH abuse along with seizures. Patient noted to have a laceration above left eye. Additional medical history includes CVA, hyperlipidemia, hypertension, SVT, syncope and cardiac ablation.CT of head completed showing no evidence of acute intracranial abnormality atrophy and chronic microvascular ischemia white matter changes.Chest x-ray completed showing no acute cardiopulmonary findings.EKG completed showing sinus tachycardia past with atrial flutter heart rate 147.UA negative. Drug screen negative. Serum alcohol less than 10 at this time patient will be admitted. Patient started on alcohol child protocol. Continue seizure precautions. Neurology, cardiology and critical care services have been consulted. At this time patient is sitting in bed sitter at bedside. Patient having some tremors On 11/22/2023 patient was seen and examined in the ICU, he is alert and responsive in no apparent distress, he denies any complaints at this time there is no fever or chills no headache or dizziness no chest pain no shortness of breath no cough no nausea or vomiting no abdominal pain no diarrhea and no urinary symptoms. Echocardiogram revealed preserved LV function with an ejection fraction of 50 to 55%, with evidence of prior inferior wall myocardial infarction. Patient was seen by neurology and EEG was performed, he is improving gradually. On 11/23/2023 patient was seen and examined on the medical floor he is alert and oriented x 3 in no apparent distress there is no fever or chills no headache or dizziness no chest pain no shortness of breath no cough no nausea or vomiting no abdominal pain no diarrhea no urinary symptoms, he is still having episodes of confusion and agitation, he has 24-hour sitter, he is receiving IV Ativan as needed, and received a dose of Haldol last night, neurology are following. On 11/24/2023 patient was seen and examined on the medical floor he is alert and oriented x 3 in no distress, he had episodes of agitation last night, requiring the use of Ativan and Haldol, at this time he has a sitter, he seems to be calm, there is no fever or chills no headache or dizziness no chest pain no shortness of breath no cough no nausea or vomiting no abdominal pain no diarrhea no urinary symptoms, neurology input reviewed, I will add a psychiatry consult, I will continue to follow closely. On 11/25/2023 patient was seen and examined on the medical floor he is alert and oriented x 3 in no apparent distress there is no fever or chills no headache or dizziness no chest pain no shortness of breath no cough no nausea or vomiting no abdominal pain no diarrhea and no urinary symptoms, patient is still having occasional episodes of agitation, psychiatry consult requested, will continue to follow. On 11/26/2023 patient was seen and examined on the medical floor he is alert and oriented x 3 in no apparent distress, he had an episode of severe anxiety with mild agitation this morning otherwise he denies any complaints there is no fever or chills no headache or dizziness no chest pain or shortness of breath no cough no nausea or vomiting no abdominal pain no diarrhea no urinary symptoms. At this time we are awaiting consult and recommendation from psychiatry. On 11/27/2023 patient is alert and oriented 3. Patient had elevated temperature 103. UA negative. Chest x-ray completed showing possible acute i nfiltrate and small effusion left lung base. Pulmonary services are following. Will reconsult neurology services to further assess she needs lumbar puncture. Patient was started on antibiotics blood and sputum cultures ordered.Patient denies any chest pain or shortness breath. Patient denies nausea and diarrhea. Patient denies any urinary burning or frequency On 11/28/2023 patient's alert and oriented 3. Less agitated than yesterday. Blood culture positive. Vancomycin added. At this time patient denies chest pain or shortness of breath. Patient denies nausea vomiting or diarrhea. P atient denies any urinary burning or frequency. On 11/29/2023 patient was seen and examined on the medical floor he is alert and oriented x 3 in no apparent distress there is no fever or chills no headache or dizziness no chest pain no shortness of breath no cough no nausea or vomiting no abdominal pain no diarrhea and no urinary symptoms, he remains on IV antibiotics including IV vancomycin, for positive blood culture for Staphylococcus aureus, will continue to follow closely on 11/30/2023 patient's alert and oriented 3. Patient reports improvement currently sitting up in chair. Discussed blood culture with lab results not finalized from initial blood culture on 11/25 likely not MRSA. Repeat blood culture has been ordered. Patient has been afebrile. Current vital signs temp 98.3, heart rate 84, respiratory rate 18, blood pressure 113/72 with pulse ox 98% on room air On 12/01/2023 patient is alert and oriented 3. Patient is doing well sitting up in chair wants to go home. We'll discharge patient on Levaquin and follow-up in office repeat blood culture drawn yesterday. Patient denies chest pain or shortness of breath. Patient denies nausea vomiting or diarrhea. Patient denies any urinary burning or frequencyPatient follow up with cardiology and neurology services for further management educated on the importance of complete alcohol cessation Patient Condition at Discharge: Stable Plan - Discharge Summary Discharge Rx Participant: No New Discharge Prescriptions: New Levofloxacin [Levaquin] 500 mg PO DAILY 7 Days #7 tab Apixaban [Eliquis] 5 mg PO BID 30 Days #60 tab lamoTRIgine [LaMICtal] 50 mg PO BID 30 Days #60 tab Continue allopurinoL [Zyloprim] 100 mg PO DAILY #30 tab Metoprolol Succinate [Toprol XL] 25 mg PO BID Primidone [Mysoline] 50 mg PO DAILY Famotidine [Pepcid] 20 mg PO DAILY #30 tab Lacosamide [Vimpat] 200 mg PO BID Levothyroxine Sodium [Synthroid] 75 mcg PO DAILY Mirtazapine 15 mg PO HS Thiamine [Vitamin B-1] 100 mg PO DAILY #30 tab QUEtiapine [SEROquel] 50 mg PO HS #30 tab Discontinued busPIRone HCl [Buspar] 10 mg PO BID lamoTRIgine [LaMICtal] 25 mg PO BID 30 Days #60 tab Discharge Medication List allopurinoL [Zyloprim] 100 mg PO DAILY #30 tab 06/21/18 [Rx] Metoprolol Succinate [Toprol XL] 25 mg PO BID 12/24/19 [History] Lacosamide [Vimpat] 200 mg PO BID 12/11/20 [History] Levothyroxine Sodium [Synthroid] 75 mcg PO DAILY 09/12/23 [History] Mirtazapine 15 mg PO HS 09/12/23 [History] Primidone [Mysoline] 50 mg PO DAILY 09/12/23 [History] Famotidine [Pepcid] 20 mg PO DAILY #30 tab 09/20/23 [Rx] QUEtiapine [SEROquel] 50 mg PO HS #30 tab 09/20/23 [Rx] Thiamine [Vitamin B-1] 100 mg PO DAILY #30 tab 09/20/23 [Rx] Apixaban [Eliquis] 5 mg PO BID 30 Days #60 tab 12/01/23 [Rx] Levofloxacin [Levaquin] 500 mg PO DAILY 7 Days #7 tab 12/01/23 [Rx] lamoTRIgine [LaMICtal] 50 mg PO BID 30 Days #60 tab 12/01/23 [Rx] Follow up Appointment(s)/Referral(s): Alaina Duff MD [REFERRING] - 1 Week Josué Simpson MD [STAFF PHYSICIAN] - 1 Week Aries Ma MD [Primary Care Provider] - 1-2 days Discharge/Stand Alone Forms: AA Meetings [place], Outpatient Counseling, In Substance Abuse Facilities, Personal [employer] Discharge Disposition: HOME SELF-CARE
== END 2023-12-01 11:12 | disposition home or self-care (01) | DRG 775 ==
LOC: EC 19:35 → 2SICU 11-21 00:40 → 3SCARD 11-22 21:38
PROVIDERS: ADMIT Internal Medicine; ATTEND Internal Medicine
PROC: 3E033RZ Introduction of Antiarrhythmic into Peripheral Vein, Percutaneous Approach (ICD-10-PCS; principal; 2023-11-21)
DX: F10.231 Alcohol dependence with withdrawal delirium (principal); N17.0 Acute kidney failure with tubular necrosis; J96.01 Acute respiratory failure with hypoxia; A41.01 Sepsis due to Methicillin susceptible Staphylococcus aureus; G92.8 Other toxic encephalopathy; E72.20 Disorder of urea cycle metabolism, unspecified; J18.9 Pneumonia, unspecified organism; E87.20 Acidosis, unspecified; I42.9 Cardiomyopathy, unspecified; I48.92 Unspecified atrial flutter; E86.0 Dehydration; F19.94 Other psychoactive substance use, unspecified with psychoactive substance-induced mood disorder; I48.91 Unspecified atrial fibrillation; G40.909 Epilepsy, unspecified, not intractable, without status epilepticus; E03.9 Hypothyroidism, unspecified; F32.A Depression, unspecified; I10 Essential (primary) hypertension; D50.9 Iron deficiency anemia, unspecified; F41.1 Generalized anxiety disorder; Y90.0 Blood alcohol level of less than 20 mg/100 ml; S00.81XA Abrasion of other part of head, initial encounter; E16.2 Hypoglycemia, unspecified; E78.5 Hyperlipidemia, unspecified; F41.0 Panic disorder [episodic paroxysmal anxiety]; I25.2 Old myocardial infarction; G89.29 Other chronic pain; M54.50 Low back pain, unspecified; K57.90 Diverticulosis of intestine, part unspecified, without perforation or abscess without bleeding; Z79.890 Hormone replacement therapy; Z79.899 Other long term (current) drug therapy; Z86.718 Personal history of other venous thrombosis and embolism; Z86.73 Personal history of transient ischemic attack (TIA), and cerebral infarction without residual deficits; W19.XXXA Unspecified fall, initial encounter; Y92.009 Unspecified place in unspecified non-institutional (private) residence as the place of occurrence of the external cause; Z88.0 Allergy status to penicillin; Z88.2 Allergy status to sulfonamides
CPT/HCPCS: 36415; 51702; 70450; 71045; 80048; 80053; 80202; 80306; 80320; 81003; 82140; 82550; 82565; 83735; 84132; 84145; 84484; 85025; 85610; 85730; 87040; 87077; 87186; 87636; 93005; 93306; 95816; 96361; 96372; 96374; 96375; 96376; 99285